=== PATIENT | male | born 1940 | race Caucasian/White ===

== ENCOUNTER → 2016-09-10 | Outpatient (CLI) | payer OTHER ==
[~2016-09-10] MED LIST: ACET-749 PO; ASPI81TA28 PO; CHOL2000 PO; CIPR-255 PO; CITA10TA8 PO; CLC100 PO; DOXY100T PO; DTR5 PO; HYDR25TA4 PO; LPR50X PO; MULT-506 PO; NITR-5 PO; NXM/40 PO; SILD1TAB11 PO; TEST5GEL TOP; TPRSR/50 PO; VYT1040 PO
[2016-09-10 14:59] LABS: URINE APPEARANCE TURBID (CLEAR); URINE BILIRUBIN NEG (NEG); URINE COLOR DK YELLOW; URINE EPITHELIAL CELL AUTO >30 /lpf (0-5); URINE NITRITE NEG (NEG); URINE PH 5.5 (4.5-7.5); URINE SPECIFIC GRAVITY 1.024 (1.000-1.030); UROBILINOGEN NEG (NEG)
[2016-09-10 15:08] LABS: MANUAL MICROSCOPIC REQUIRED? NO; REVIEW REQ? YES
== END | disposition home or self-care (01) ==
LOC: C.LABPBG 11:41
PROVIDERS: ATTEND Urology
DX: C61 Malignant neoplasm of prostate (principal); R31.9 Hematuria, unspecified

== ENCOUNTER → 2016-09-19 | Outpatient (CLI) | payer OTHER | END | disposition home or self-care (01) | LOC: C.LABSPEC 08:30 | PROVIDERS: ATTEND Urology | DX: N39.0 Urinary tract infection, site not specified (principal) ==

== ENCOUNTER → 2016-10-01 | Outpatient (CLI) | payer OTHER | END | disposition home or self-care (01) | LOC: C.LABPBG 15:40 | PROVIDERS: ATTEND Urology | DX: C61 Malignant neoplasm of prostate (principal) ==

== ENCOUNTER → 2016-10-09 | Outpatient (CLI) | payer OTHER | END | disposition home or self-care (01) | LOC: C.LABSPEC 17:37 | PROVIDERS: ATTEND Nurse Practitioner Adult Health | DX: N39.0 Urinary tract infection, site not specified (principal) ==

== ENCOUNTER → 2016-10-21 | Outpatient (CLI) | payer OTHER ==
[~2016-10-21] MED LIST changes: +OPTIRAY 320 IV PRN
--- NOTE | 2016-10-21 11:06 | DIAGNOSTIC IMAGING REPORT ---
CT UROGRAM CLINICAL HISTORY: Hematuria. Urinary frequency. History of prostate cancer. COMPARISON STUDY: No priors. TECHNIQUE: Before and following the IV administration of 94 cc of Optiray 320, CT urogram of the abdomen and pelvis is performed from the lung bases to the proximal femora. Images are reviewed in the axial, sagittal, and coronal planes. IV contrast was administered without complication. CT DOSE: 1527.00 mGy.cm FINDINGS: Lung bases: Midline sternotomy wires are noted. The heart is enlarged and without pericardial effusion. The coronary arteries are densely calcified. Emphysema is suspected. A calcified granuloma is noted at the left lung base. No airspace consolidation or pleural effusion is identified. There is a moderate hiatal hernia. Liver: The contrast-enhanced liver is enlarged, measuring 19.3 cm in length. The liver demonstrates diffusely diminished attenuation consistent with hepatic steatosis. There is no intrahepatic biliary ductal dilatation. The hepatic veins and portal veins are patent. Gallbladder: Contracted. Spleen: The spleen is mildly enlarged, measuring 14.0 cm in length. Pancreas: Unremarkable. Adrenal glands: Unremarkable. Kidneys and ureters: The contrast enhanced kidneys demonstrate cortical atrophy and are without hydronephrosis. There are 2 punctate nonobstructing renal calculi in the left kidney seen on the unenhanced images. No right renal calculi are identified. The kidneys enhance and excrete symmetrically. There is no enhancing renal cortical mass lesion identified. There is no evidence of urothelial lesion within the renal pelvis bilaterally or along the course of either ureter. The right proximal ureter and the distal left ureter are not well opacified by excreted contrast. Abdominal vasculature: There is advanced atherosclerotic calcification and ectasia of the abdominal aorta. 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 Bowel: There is no bowel obstruction. There is mild to moderate sigmoid diverticulosis without CT evidence of acute diverticulitis. 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 The appendix is well-visualized and normal. Peritoneum: There is no intraperitoneal free air or abdominal ascites. A small fat-containing umbilical hernia is noted. Lymphadenopathy: None. Pelvic viscera: The prostate gland is surgically absent. The bladder wall appears slightly thickened and trabeculated suggesting the sequelae of chronic outlet obstruction. Numerous phleboliths are observed in the pelvis. Skeletal structures: The skeletal structures are heterogeneously osteopenic. No lytic or blastic bony lesions are seen. Mild to moderate lumbosacral spondylosis is observed. There is near complete fusion of the sacroiliac joints. IMPRESSION: 1. There are punctate nonobstructing left renal calculi. 2. There is no enhancing renal cortical mass, and no evidence of urothelial lesion within the renal pelvis bilaterally or involving the ureters. 3. The prostate gland is surgically absent. 4. The bladder wall appears slightly thickened and trabeculated suggesting the sequelae of chronic outlet obstruction. The bladder is otherwise normal as visualized. If further assessment of the bladder is desired then cystoscopy would be appropriate. 5. Hepatomegaly and hepatic steatosis. 6. Splenomegaly. 7. Cardiomegaly. 8. Moderate hiatal hernia. 9. 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 10. Mild to moderate sigmoid diverticulosis without CT evidence of acute diverticulitis. 11. Additional changes as above. Electronically signed by: Alton Joseph M.D. 10/21/2016 11:05 AM Dictated Date/Time: 10/21/2016 10:53 AM
== END | disposition home or self-care (01) ==
LOC: C.CTS 09:54
PROVIDERS: ATTEND Urology
DX: C61 Malignant neoplasm of prostate (principal); R31.9 Hematuria, unspecified; R30.0 Dysuria; R39.15 Urgency of urination; K44.9 Diaphragmatic hernia without obstruction or gangrene; Z01.810 Encounter for preprocedural cardiovascular examination; Z01.812 Encounter for preprocedural laboratory examination; I49.1 Atrial premature depolarization; R94.31 Abnormal electrocardiogram [ECG] [EKG]; I25.2 Old myocardial infarction

== ENCOUNTER → 2016-10-21 | Outpatient (CLI) | payer OTHER ==
[2015-11-21 06:48] VITALS: BMI 28.0
[~2016-10-21] MED LIST changes: +CEFTRIAXONE SOD INJ 1 GM in DEXTROSE 5% ADD-VANTAGE 50ML 50 ML IV SCH; +DEXAMETHASONE SOD INJ 4 MG/ML VIAL ONE; +FENTANYL CITRATE INJ 50 MCG/1 ML 2 ML VIAL ONE; +LACTATED RINGER'S 1000ML 1,000 ML IV SCH; +LIDOCAINE HCL 2% 2 ML VIAL (20MG/ML) ONE; +MIDAZOLAM HCL 1 MG/ML 2ML VIAL ONE; +ONDANSETRON INJ 2 MG/ML 2 ML VIAL ONE; -OPTIRAY 320 IV PRN; +PROPOFOL IV EMULSION 10 MG/ML 20 ML VIAL IV ONE; +VANCOMYCIN 1GM/270ML NSS IV SCH
[2016-10-21 11:19] VITALS: BMI 28.0
--- NOTE | 2016-10-21 12:01 | PAT Medication Instructions ---
Service Date Oct 21, 2016. Current Home Medication List Aspirin (Aspirin Ec), 81 MG PO QAM Cholecalciferol (Vitamin D3), 4,000 UNITS PO DAILY Citalopram Hydrobromide (Celexa), 10 MG PO QAM Doxycycline Hyclate (Doxycycline Hyclate), 50 MG PO Q2D Esomeprazole Magnesium (Nexium), 40 MG PO QPM Ezetimibe/Simvastatin (Vytorin 10-40 mg), 1 TAB PO QPM Hydrochlorothiazide (Hctz), 25 MG PO QAM Metoprolol Tartrate (Metoprolol Tartrate), 50 MG PO QAM Multivitamin (Multivitamin), 1 TAB PO QAM Medication Instructions For Your Scheduled Surgery - Hold the following medications the morning of surgery: Multivitamin (Multivitamin), 1 TAB PO QAM Hydrochlorothiazide (Hctz), 25 MG PO QAM Cholecalciferol (Vitamin D3), 4,000 UNITS PO DAILY - Take the following medications the morning of surgery with a sip of water: Metoprolol Tartrate (Metoprolol Tartrate), 50 MG PO QAM Doxycycline Hyclate (Doxycycline Hyclate), 50 MG PO Q2D Citalopram Hydrobromide (Celexa), 10 MG PO QAM Aspirin (Aspirin Ec), 81 MG PO QAM (okay to continue per surgeon instructions) - Take the following medications as scheduled the night before surgery: Ezetimibe/Simvastatin (Vytorin 10-40 mg), 1 TAB PO QPM Esomeprazole Magnesium (Nexium), 40 MG PO QPM If you have any questions please call us at [phone] (Nydia Long PA-C) or [phone] or [phone]
[2016-10-21 12:44] LABS: BASO % 0.4 %; BASO ABS # 0.02 K/uL (0-0.2); COMPLETE YES; EOS % 1.6 %; IG% 1.4 %; LYMPH % 17.4 %; LYMPH ABS # 0.86 K/uL (1.2-3.4); MEAN CELL VOLUME 94.3 fL (80-100); MEAN CORPUSCULAR HEMOGLOBIN 32.3 pg (25-34); MEAN CORPUSCULAR HGB CONC 34.2 g/dl (32-36); MEAN PLATELET VOLUME 10.5 fL (7.4-10.4); MONO % 9.5 %; NEUT % 69.7 %; PLATELET COUNT 139 K/uL (130-400); RED BLOOD COUNT 4.03 M/uL (4.7-6.1); WHITE BLOOD COUNT 4.95 K/uL (4.8-10.8)
[2016-10-21 12:58] LABS: URINE APPEARANCE CLEAR (CLEAR); URINE BILIRUBIN NEG (NEG); URINE COLOR YELLOW; URINE NITRITE NEG (NEG); URINE PH 5.5 (4.5-7.5); URINE SPECIFIC GRAVITY > 1.045 (1.000-1.030); UROBILINOGEN NEG (NEG)
[2016-10-21 13:04] LABS: CREATININE 0.97 mg/dl (0.60-1.40)
[2016-10-21 13:05] LABS: BUN/CREATININE RATIO 25.8 (10-20); CALCIUM 8.8 mg/dl (8.5-10.1); POTASSIUM 3.5 mmol/L (3.5-5.1)
[2016-10-21 13:12] LABS: MANUAL MICROSCOPIC REQUIRED? NO; REVIEW REQ? NO
== END | disposition home or self-care (01) ==
LOC: C.LAB 08:00 → EDSTATUS 10-29 13:20
PROVIDERS: ATTEND Urology
DX: Z01.810 Encounter for preprocedural cardiovascular examination (principal); Z01.812 Encounter for preprocedural laboratory examination; I49.1 Atrial premature depolarization; R94.31 Abnormal electrocardiogram [ECG] [EKG]; I25.2 Old myocardial infarction

== ENCOUNTER 2016-10-26 19:17 | Inpatient (IN) | payer OTHER ==
[2016-10-21 11:19] VITALS: BMI 28.0
[~2016-10-26] VITALS: Ht 185.4 cm; Wt 97.6 kg
[~2016-10-26 19:17] MED LIST changes: -ACET-749 PO; -CEFTRIAXONE SOD INJ 1 GM in DEXTROSE 5% ADD-VANTAGE 50ML 50 ML IV SCH; -CIPR-255 PO; -CLC100 PO; -DEXAMETHASONE SOD INJ 4 MG/ML VIAL ONE; -DTR5 PO; -FENTANYL CITRATE INJ 50 MCG/1 ML 2 ML VIAL ONE; -LACTATED RINGER'S 1000ML 1,000 ML IV SCH; -LIDOCAINE HCL 2% 2 ML VIAL (20MG/ML) ONE; -MIDAZOLAM HCL 1 MG/ML 2ML VIAL ONE; -NITR-5 PO; -ONDANSETRON INJ 2 MG/ML 2 ML VIAL ONE; -PROPOFOL IV EMULSION 10 MG/ML 20 ML VIAL IV ONE; -SILD1TAB11 PO; -TEST5GEL TOP; -TPRSR/50 PO; -VANCOMYCIN 1GM/270ML NSS IV SCH
[2016-10-26] MEDS ORDERED: NITR-5 PO (19:39)
[2016-10-26 20:09] LABS: HEMATOCRIT 38.3 % (42-52); MEAN CELL VOLUME 91.8 fL (80-100); MEAN CORPUSCULAR HEMOGLOBIN 32.1 pg (25-34); RED BLOOD COUNT 4.17 M/uL (4.7-6.1)
[2016-10-26 20:20] LABS: ISTAT CREATININE 0.9 mg/dl (0.6-1.3); ISTAT HEMOGLOBIN 13.3 g/dl (14.0-18.0); ISTAT IONIZED CALCIUM 1.1 mmol/l (1.12-1.32)
[2016-10-26 20:26] LABS: URINE APPEARANCE CLEAR (CLEAR); URINE BILIRUBIN NEG (NEG); URINE COLOR YELLOW; URINE NITRITE NEG (NEG); URINE SPECIFIC GRAVITY 1.013 (1.000-1.030); UROBILINOGEN NEG (NEG); ZZUR CULT IF INDIC CLEAN CATCH YES
[2016-10-26 20:27] LABS: PROTHROMBIN TIME (PATIENT) 11.1 SECONDS (9.0-12.0)
[2016-10-26 20:27] LABS: MANUAL MICROSCOPIC REQUIRED? NO; REVIEW REQ? YES
[2016-10-26 20:36] LABS: ALT/SGPT 33 U/L (12-78); BLOOD UREA NITROGEN 17 mg/dl (7-18); BUN/CREATININE RATIO 16.8 (10-20); CARBON DIOXIDE 24 mmol/L (21-32); CHLORIDE 99 mmol/L (98-107); GLUCOSE 120 mg/dl (70-99); MAGNESIUM 1.6 mg/dl (1.8-2.4); MEAN PLATELET VOLUME 10.7 fL (7.4-10.4); PLATELET COUNT 107 K/uL (130-400); SODIUM 137 mmol/L (136-145)
[2016-10-26 20:37] LABS: BASO % 0.2 %; BASO ABS # 0.01 K/uL (0-0.2); COMPLETE YES; EOS % 0.7 %; IG% 1.1 %; MONO % 3.9 %; NEUT % 87.1 %
[2016-10-26 20:41] LABS: ALKALINE PHOSPHATASE 69 U/L (45-117); AST/SGOT 23 U/L (15-37); CKMB/CK RATIO 2.6 (0-3.0)
[2016-10-26] MEDS ORDERED: POTASSIUM CHLORIDE 10 MEQ TABCR PO STA (20:50)
--- NOTE | 2016-10-26 20:50 | DIAGNOSTIC IMAGING REPORT ---
SINGLE VIEW CHEST CLINICAL HISTORY: Fever. FINDINGS: An AP, portable, upright chest radiograph is compared to study dated 11/01/2015. The examination is degraded by portable technique and patient rotation. The patient is status post midline sternotomy. The heart is enlarged and there is atherosclerotic calcification of the thoracic aorta. The pulmonary vasculature is noncongested. Emphysema and chronic interstitial thickening are similar to previous. No airspace consolidation or pleural effusion is identified. No pneumothorax is seen. The skeletal structures are osteopenic. Healed bilateral rib fractures are noted. IMPRESSION: Cardiomegaly and emphysema with no acute cardiopulmonary abnormality. Electronically signed by: Alton Joseph M.D. 10/26/2016 8:49 PM Dictated Date/Time: 10/26/2016 8:47 PM
[2016-10-26] MEDS ORDERED: SODIUM CHLORIDE 0.9% 1000ML 1,000 ML IV STA (21:34)
[2016-10-26] MEDS ORDERED: CEFTRIAXONE SOD INJ 1 GM ADDVIAL IV STA (21:38)
[2016-10-26] MEDS ORDERED: ACETAMINOPHEN 500 MG TAB PO STA (21:42)
[2016-10-26] MEDS ORDERED: POLYETHYLENE (MIRALAX) 17 GM PACK PO PRN (22:00)
[2016-10-26] MEDS ORDERED: ZOLPIDEM TARTRATE 5 MG TAB PO PRN (22:00)
[2016-10-26] MEDS ORDERED: ENOXAPARIN 40 MG/0.4 ML SYR SQ SCH (22:00)
[2016-10-26] MEDS ORDERED: ONDANSETRON INJ 2 MG/ML 2 ML VIAL IV PRN (22:00)
[2016-10-26] MEDS ORDERED: ACETAMINOPHEN 325 MG TAB PO PRN (22:00)
[2016-10-26] MEDS ORDERED: ALUMINUM/MAGNESIUM/SIMETH (MAALOX MAX) 30 ML UDC PO PRN (22:00)
[2016-10-26] MEDS ORDERED: MAGNESIUM HYDROXIDE SUSP 30 ML UDC PO PRN (22:00)
--- NOTE | 2016-10-26 22:17 | EMERGENCY ROOM VISIT NOTE ---
History Report prepared by Vesna: Nurys Rojas Under the Supervision of: Dr. Driss Ya D.O. First contact with patient: 19:25 Chief Complaint: PENIS PAIN Stated Complaint: PAIN IN THE PENIS W/ LEAKAGE Nursing Triage Summary: pt reports increased pain with urinary frequency, burining and swelling in penis, pt is sched for cyscto tues. PCP sent in for eval and tx pt reports fever earlier today History of Present Illness The patient is a 76 year old male who presents to the Emergency Room with complaints of constant burning with urination beginning 2 months ago. The patient's states that the patient has a history of a prostatectomy last year and has been having frequent UTI's over the last 2 months. She reports that he has been on multiple courses of antibiotics and is now on Macrobid.. The patient complains of a fever of 101.8, urinary frequency about every 20 minutes, urinary urgency, and urinary incontinence. The patient denies any abdominal pain, cough, back pain, testicular pain, pain with bowel movements, vomiting, nausea, diarrhea, blood in urine, chest pain, and shortness of breath. The notes that the patient had Coags done and on the 10/21 he was Coag negative for staff and on 09/10 he grew out enterococcus which was barnhart sensitive. The CT that the patient had recently was normal. Source of History: patient Onset: 2 months ago Position: other (penis) Quality: burning Timing: constant Modifying Factors (Worsening): urination Associated Symptoms: + fevers, + urinary symptoms, No SOB, No abdominal pain , No back pain, No chest pain, No cough, No diarrhea, No nausea, No vomiting Note: The patient denies any testicular pain, pain with bowel movements, blood in urine. Review of Systems See HPI for pertinent positives & negatives. A total of 10 systems reviewed and were otherwise negative. Past Medical & Surgical Medical Problems: (1) Dysuria (2) Fever (3) Prostate cancer Family History No pertinent family history stated. Social History Smoking Status: Former Smoker Marital Status: Housing Status: lives with significant other Occupation Status: retired Current/Historical Medications Scheduled Aspirin (Aspirin Ec), 81 MG PO QAM Cholecalciferol (Vitamin D3), 4,000 UNITS PO DAILY Citalopram Hydrobromide (Celexa), 10 MG PO QAM Doxycycline Hyclate (Doxycycline Hyclate), 50 MG PO Q2D Esomeprazole Magnesium (Nexium), 40 MG PO QPM Ezetimibe/Simvastatin (Vytorin 10-40 mg), 1 TAB PO QPM Hydrochlorothiazide (Hctz), 25 MG PO QAM Metoprolol Tartrate (Metoprolol Tartrate), 50 MG PO QAM Multivitamin (Multivitamin), 1 TAB PO QAM Nitrofurantoin Monohyd Macrocr (Macrobid), 100 MG PO Q12 Allergies Coded Allergies: Metoclopramide (Verified Allergy, Unknown, Depression, 10/26/16) Sulfa Antibiotics (Verified Allergy, Unknown, rash, 10/26/16) Lisinopril (Verified Adverse Reaction, Mild, cough, 10/26/16) Physical Exam Vital Signs Date Time Temp Pulse Resp B/P Pulse Ox O2 Delivery O2 Flow Rate FiO2 10/26/16 21:37 38.8 96 18 148/83 96 Room Air 10/26/16 21:06 102 18 123/72 97 Room Air 10/26/16 19:21 37.3 99 18 148/77 96 Room Air Physical Exam GENERAL: sitting up on the edge of the bed, disheveled, no distress, non-toxic EYE EXAM: normal conjunctiva OROPHARYNX: no exudate, no erythema, lips, buccal mucosa, and tongue normal and mucous membranes are moist NECK: supple, no nuchal rigidity, no adenopathy, non-tender LUNGS: Clear to auscultation. Normal chest wall mechanics HEART: no murmurs, S1 normal and S2 normal ABDOMEN: abdomen soft, non-tender, normo-active bowel sounds, no masses, no rebound or guarding. BACK: Back is symmetrical on inspection and there is no deformity, no midline tenderness, no CVA tenderness. SKIN: no rashes and no bruising UPPER EXTREMITIES: upper extremities are grossly normal. LOWER EXTREMITIES: No pitting edema. NEURO EXAM: Normal sensorium, cranial nerves II-XII grossly intact, normal speech, no gross weakness of arms, no gross weakness of legs. : Normal external genitalia, testicles nontender, no masses. Medical Decision & Procedures ER Provider Diagnostic Interpretation: Xray results per the radiologist and my interpretation. SINGLE VIEW CHEST FINDINGS: An AP, portable, upright chest radiograph is compared to study dated 11/01/2015. The examination is degraded by portable technique and patient rotation. The patient is status post midline sternotomy. The heart is enlarged and there is atherosclerotic calcification of the thoracic aorta. The pulmonary vasculature is noncongested. Emphysema and chronic interstitial thickening are similar to previous. No airspace consolidation or pleural effusion is identified. No pneumothorax is seen. The skeletal structures are osteopenic. Healed bilateral rib fractures are noted. IMPRESSION: Cardiomegaly and emphysema with no acute cardiopulmonary abnormality. Electronically signed by: Alton Joseph M.D. 10/26/2016 8:49 PM Dictated Date/Time: 10/26/2016 8:47 PM Laboratory Results 10/26/16 19:55 Red Blood Count 4.17, Mean Corpuscular Volume 91.8, Mean Corpuscular Hemoglobin 32.1, Mean Corpuscular Hemoglobin Concent 35.0, Mean Platelet Volume 10.7, Neutrophils (%) (Auto) 87.1, Lymphocytes (%) (Auto) 7.0, Monocytes (%) (Auto) 3.9, Eosinophils (%) (Auto) 0.7, Basophils (%) (Auto) 0.2, Neutrophils # (Auto) 4.98, Lymphocytes # (Auto) 0.40, Monocytes # (Auto) 0.22, Eosinophils # (Auto) 0.04, Basophils # (Auto) 0.01 10/26/16 19:55 Test 10/26/16 19:55 10/26/16 20:00 10/26/16 20:04 10/26/16 20:05 White Blood Count 5.60 K/uL (4.8-10.8) Red Blood Count 4.17 M/uL (4.7-6.1) Hemoglobin 13.4 g/dL (14.0-18.0) Hematocrit 38.3 % (42-52) Mean Corpuscular Volume 91.8 fL (80-100) Mean Corpuscular Hemoglobin 32.1 pg (25-34) Mean Corpuscular Hemoglobin Concent 35.0 g/dl (32-36) Platelet Count 107 K/uL (130-400) Mean Platelet Volume 10.7 fL (7.4-10.4) Neutrophils (%) (Auto) 87.1 % Lymphocytes (%) (Auto) 7.0 % Monocytes (%) (Auto) 3.9 % Eosinophils (%) (Auto) 0.7 % Basophils (%) (Auto) 0.2 % Neutrophils # (Auto) 4.98 K/uL (1.4-6.5) Lymphocytes # (Auto) 0.40 K/uL (1.2-3.4) Monocytes # (Auto) 0.22 K/uL (0.11-0.59) Eosinophils # (Auto) 0.04 K/uL (0-0.5) Basophils # (Auto) 0.01 K/uL (0-0.2) RDW Standard Deviation 44.0 fL (36.4-46.3) RDW Coefficient of Variation 13.4 % (11.5-14.5) Immature Granulocyte % (Auto) 1.1 % Immature Granulocyte # (Auto) 0.06 K/uL (0.00-0.02) Prothrombin Time 11.1 SECONDS (9.0-12.0) Prothromb Time International Ratio 1.0 (0.9-1.1) Est Creatinine Clear Calc Drug Dose 79.7 ml/min Estimated GFR () 85.6 Estimated GFR (Non- 73.8 BUN/Creatinine Ratio 16.8 (10-20) Calcium Level 9.0 mg/dl (8.5-10.1) Magnesium Level 1.6 mg/dl (1.8-2.4) Total Bilirubin 0.9 mg/dl (0.2-1) Direct Bilirubin 0.2 mg/dl (0-0.2) Aspartate Amino Transf (AST/SGOT) 23 U/L (15-37) Alanine Aminotransferase (ALT/SGPT) 33 U/L (12-78) Alkaline Phosphatase 69 U/L (45-117) Total Creatine Kinase 85 U/L (39-308) Creatine Kinase MB 2.2 ng/ml (0.5-3.6) Creatine Kinase MB Ratio 2.6 (0-3.0) Troponin I < 0.015 ng/ml (0-0.045) Total Protein 7.4 gm/dl (6.4-8.2) Albumin 3.5 gm/dl (3.4-5.0) Bedside Hemoglobin 13.3 g/dl (14.0-18.0) Bedside Hematocrit 39 % (42-52) Bedside Sodium 136 mEq/L (135-144) Bedside Potassium 3.1 mEq/L (3.3-5.0) Bedside Chloride 97 mEq/L (101-112) Bedside Total CO2 24 mEq/l (24-31) Anion Gap 20.0 mmol/L (16-25) Bedside Blood Urea Nitrogen 17 mg/dl (7-18) Bedside Creatinine 0.9 mg/dl (0.6-1.3) Bedside Glucose (other) 127 mg/dl (70-99) Bedside Ionized Calcium (Missy) 1.10 mmol/l (1.12-1.32) Bedside Lactic Acid Venous 1.78 mmol/L (0.90-1.70) Urine Color YELLOW Urine Appearance CLEAR (CLEAR) Urine pH 5.0 (4.5-7.5) Urine Specific [place] 1.013 (1.000-1.030) Urine Protein NEG (NEG) Urine Glucose (UA) NEG (NEG) Urine Ketones NEG (NEG) Urine Occult Blood NEG (NEG) Urine Nitrite NEG (NEG) Urine Bilirubin NEG (NEG) Urine Urobilinogen NEG (NEG) Urine Leukocyte Esterase TRACE (NEG) Urine WBC (Auto) 10-30 /hpf (0-5) Urine RBC (Auto) 0-4 /hpf (0-4) Urine Hyaline Casts (Auto) 0 /lpf (0-5) Urine Epithelial Cells (Auto) 5-10 /lpf (0-5) Urine Bacteria (Auto) NEG (NEG) Test 10/26/16 22:00 Laboratory results per my review. Medications Administered Medications (Trade) Dose Ordered Sig/Mayank Route Start Time Stop Time Status Last Admin Dose Admin Potassium Chloride 40 meq 40 meq NOW STAT PO 10/26/16 20:50 10/26/16 20:52 DC 10/26/16 21:04 40 MEQ Sodium Chloride (Nss 1000ml) 1,000 ml @ 999 mls/hr Q1H1M STAT IV 10/26/16 21:34 10/26/16 22:34 10/26/16 21:47 999 MLS/HR Ceftriaxone Sodium (Rocephin Inj) 1 gm NOW STAT IV 10/26/16 21:38 10/26/16 21:39 DC 10/26/16 21:47 1 GM Acetaminophen (Tylenol Tab) 1,000 mg NOW STAT PO 10/26/16 21:42 10/26/16 21:44 DC 10/26/16 21:49 1,000 MG ECG Rate (beats per minute): 101 Rhythm: sinus tachycardia Findings: PVC, Q waves (Inferior), left axis deviation Comparison ECG Date: 10/21/16 Change: no significant change ED Course ED COURSE: Vital signs were reviewed and showed tachycardia The patients medical record was reviewed The above diagnostic studies were performed and reviewed. ED treatments and interventions as stated above. 1924: The patient was evaluated in room A10. A complete history and physical examination was performed. 1941: Post-void residual 62mls. 2049: Potassium Chloride 40meq PO. 2125: I reevaluated the patient and updated him. 2133: Sodium Chloride 1000 ml @ 999 mls/hr IV. 2137: Rocephin Inj 1gm IV. 2138: I spoke to Dr. Thomas. He agrees with antibiotics and admission. 2141: Tylenol Tab 1000mg PO. 2199: I reviewed the patient's case with Dr. Irvin. He will evaluate the patient for further management. 2206: Upon reevaluation, the patient is hemodynamically stable.I discussed my findings with the patient and he understands and agrees with the treatment plan. Based on the patients age, coexisting illnesses, exam and lab findings the decision to treat as an inpatient was made. The patient remained stable while under my care. The patient will be evaluated for further management. Medical Decision Differential diagnoses includes but is not limited to gastritis, peptic ulcer disease, GERD, gallbladder disease, pancreatitis, small bowel obstruction, acute coronary syndrome, pericarditis, ischemic bowel, irritable bowel disease, irritable bowel syndrome, appendicitis, diverticulitis, malignancy, hernia, urinary tract infection, torsion, [/ectopic (if female)], perforation, trauma, infectious. Patient is a 76-year-old male referred in by urology for dysuria, urgency and frequency which is been present for the past 2 months and worsening. He is scheduled for cystoscopy on Friday. Tonight the notes that he has been having fevers in the 101. Today in the ER he had a temperature 38.8 along with a heart rate in the low 100s. Lactic acid is slightly elevated at 1.78. Patient felt significantly better while in the ER. He was given a bolus normal saline, Tylenol I did give him a dose of Rocephin. I discussed case with urology and they were in agreement with admission. Post void residual was less than 70. He cannot have a catheter placed as he has a stricture urology would need to be notified for this. Labs show no significant leukocytosis or anemia. BMP showed hypokalemia and his potassium was repleted. EKG showed tachycardia but was unchanged from previous with Q waves present. UA does not significantly indicate a UTI but the patient was covered with antibiotics with his fever and urinary symptoms. He has no other complaints at this time. Influenza was pending following admission. Consults Time Called: 2134 Consulting Physician: Dr. Thomas Returned Call: [address] Thomas. He agrees with antibiotics and admission. Additional Consults: Time Called: 2139 Consulted Physician: Dr. Irvin Returned Call: 2199 Additional Comments: I reviewed the patient's case with Dr. Irvin. He will evaluate the patient for further management. Impression Primary Impression: SIRS (systemic inflammatory response syndrome) Additional Impressions: Dysuria Fever Hypokalemia Scribe Attestation The scribe's documentation has been prepared under my direction and personally reviewed by me in its entirety. I confirm that the note above accurately reflects all work, treatment, procedures, and medical decision making performed by me. Departure Information Dispostion Being Evaluated By Hospitalist Referrals rTae Garza (PCP) Patient Instructions My [facility] Problem Qualifiers Additional Impressions: Fever Fever type: unspecified Qualified Codes: R50.9 - Fever, unspecified
--- NOTE | 2016-10-26 22:27 | History and Physical ---
History & Physical Date & Time of Service: Oct 26, 2016 at 22:16 Chief Complaint: Pain In The Penis W/ Leakage Primary Care Physician: Trae Garza History of Present Illness Source: patient, spouse 76 y/o M w/Hx HTN, HPL, CAD, urethral stricture, prostatectomy 11/07. Pt has had recurrent UTIs for approximately 2 months. He describes bouts of dysuria with a considerable degree of pain, urgency and frequency. He has had 2 negative cultures recently and then one culture that was (+) for coagulase negative Staph thought to be a contaminant. An itial culture was (+) for pansensitive Enterococci. He has been treated with 4 courses of antibiotics, initially Amoxicillin, then Macrobid followed by Cipro and Macrobid again. He reports no relief in his symptoms despite multiple courses of antibiotics. Today in addition to his chronic symptoms he developed a fever of 101.8 prompting him to visit the ER. Initial UA is negative however this may be due to partial treatment with outpt antibiotics. His lactic acid is marginally elevated and a fever was confirmed on arrival at the hospital. As the pt is having recurrent infections and has failed outpatient treatment, he will be admitted for IV antibiotics pending culture results. Due to recurrent infection he was scheduled for a cystoscopy next week. It is also noted that the pt takes Doxycycline 50mg PO Q2D for rosacea. 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 Smoking Status: Former Smoker Alcohol Use: socially Marital Status: Allergies Coded Allergies: Metoclopramide (Verified Allergy, Unknown, Depression, 10/26/16) Sulfa Antibiotics (Verified Allergy, Unknown, rash, 10/26/16) Lisinopril (Verified Adverse Reaction, Mild, cough, 10/26/16) Home Medications Scheduled Aspirin (Aspirin Ec), 81 MG PO QAM Cholecalciferol (Vitamin D3), 4,000 UNITS PO DAILY Citalopram Hydrobromide (Celexa), 10 MG PO QAM Doxycycline Hyclate (Doxycycline Hyclate), 50 MG PO Q2D Esomeprazole Magnesium (Nexium), 40 MG PO QPM Ezetimibe/Simvastatin (Vytorin 10-40 mg), 1 TAB PO QPM Hydrochlorothiazide (Hctz), 25 MG PO QAM Metoprolol Tartrate (Metoprolol Tartrate), 50 MG PO QAM Multivitamin (Multivitamin), 1 TAB PO QAM Nitrofurantoin Monohyd Macrocr (Macrobid), 100 MG PO Q12 Review of Systems Constitutional: + chills, + fever, No sweats Eyes: No eye pain, No worsening of vision ENT: No hearing loss, No nasal symptoms, No unusual epistaxis Respiratory: No cough, No sputum, No wheezing Cardiovascular: No PND, No chest pain, No orthopnea Abdomen: No nausea, No pain, No vomiting Musculoskeletal: No joint pain, No muscle pain Genitourinary - Male: + dysuria, + problem reported (Moderate to sever penile pain), + urinary frequency, + urinary urgency, No hematuria Neurologic: No memory loss, No paralysis, No weakness Psychiatric: No depression symptoms Endocrine: No fatigue Hematologic / Lymphatic: No abnormal bleeding/bruising Integumentary: No rash Allergic / Immunologic: No environmental allergies Physical Exam Vital Signs Date Time Temp Pulse Resp B/P Pulse Ox O2 Delivery O2 Flow Rate FiO2 10/26/16 21:37 38.8 96 18 148/83 96 Room Air 10/26/16 21:06 102 18 123/72 97 Room Air 10/26/16 19:21 37.3 99 18 148/77 96 Room Air General Appearance: WD/WN, no apparent distress Head: normocephalic, atraumatic Eyes: normal inspection, PERRL, EOMI ENT: normal ENT inspection, hearing grossly normal Neck: supple, no JVD Respiratory/Chest: chest non-tender, lungs clear, normal breath sounds, no respiratory distress, no accessory muscle use Cardiovascular: regular rate, rhythm, no edema, no gallop, no JVD, no murmur, normal peripheral pulses Abdomen/GI: normal bowel sounds, non tender, soft Back: normal inspection, no CVA tenderness Extremities/Musculoskelatal: normal inspection, no calf tenderness, normal capillary refill, no pedal edema, normal range of motion 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, no motor/sensory deficits, alert, normal mood/affect, normal reflexes, oriented x 3 Skin: normal color, warm/dry, no rash Diagnostics Laboratory Results Results Past 24 Hours Test 10/26/16 19:55 10/26/16 20:00 10/26/16 20:04 10/26/16 20:05 Range/Units White Blood Count 5.60 4.8-10.8 K/uL Red Blood Count 4.17 4.7-6.1 M/uL Hemoglobin 13.4 14.0-18.0 g/dL Hematocrit 38.3 42-52 % Mean Corpuscular Volume 91.8 80-100 fL Mean Corpuscular Hemoglobin 32.1 25-34 pg Mean Corpuscular Hemoglobin Concent 35.0 32-36 g/dl Platelet Count 107 130-400 K/uL Mean Platelet Volume 10.7 7.4-10.4 fL Neutrophils (%) (Auto) 87.1 % Lymphocytes (%) (Auto) 7.0 % Monocytes (%) (Auto) 3.9 % Eosinophils (%) (Auto) 0.7 % Basophils (%) (Auto) 0.2 % Neutrophils # (Auto) 4.98 1.4-6.5 K/uL Lymphocytes # (Auto) 0.40 1.2-3.4 K/uL Monocytes # (Auto) 0.22 0.11-0.59 K/uL Eosinophils # (Auto) 0.04 0-0.5 K/uL Basophils # (Auto) 0.01 0-0.2 K/uL RDW Standard Deviation 44.0 36.4-46.3 fL RDW Coefficient of Variation 13.4 11.5-14.5 % Immature Granulocyte % (Auto) 1.1 % Immature Granulocyte # (Auto) 0.06 0.00-0.02 K/uL Prothrombin Time 11.1 9.0-12.0 SECONDS Prothromb Time International Ratio 1.0 0.9-1.1 Sodium Level 137 136-145 mmol/L Potassium Level 3.0 3.5-5.1 mmol/L Chloride Level 99 98-107 mmol/L Carbon Dioxide Level 24 21-32 mmol/L Anion Gap 14.0 20.0 16-25 mmol/L Blood Urea Nitrogen 17 7-18 mg/dl Creatinine 1.00 0.60-1.40 mg/dl Est Creatinine Clear Calc Drug Dose 79.7 ml/min Estimated GFR () 85.6 Estimated GFR (Non- 73.8 BUN/Creatinine Ratio 16.8 10-20 Random Glucose 120 70-99 mg/dl Calcium Level 9.0 8.5-10.1 mg/dl Magnesium Level 1.6 1.8-2.4 mg/dl Total Bilirubin 0.9 0.2-1 mg/dl Direct Bilirubin 0.2 0-0.2 mg/dl Aspartate Amino Transf (AST/SGOT) 23 15-37 U/L Alanine Aminotransferase (ALT/SGPT) 33 12-78 U/L Alkaline Phosphatase 69 45-117 U/L Total Creatine Kinase 85 39-308 U/L Creatine Kinase MB 2.2 0.5-3.6 ng/ml Creatine Kinase MB Ratio 2.6 0-3.0 Troponin I < 0.015 0-0.045 ng/ml Total Protein 7.4 6.4-8.2 gm/dl Albumin 3.5 3.4-5.0 gm/dl Bedside Hemoglobin 13.3 14.0-18.0 g/dl Bedside Hematocrit 39 42-52 % Bedside Sodium 136 135-144 mEq/L Bedside Potassium 3.1 3.3-5.0 mEq/L Bedside Chloride 97 101-112 mEq/L Bedside Total CO2 24 24-31 mEq/l Bedside Blood Urea Nitrogen 17 7-18 mg/dl Bedside Creatinine 0.9 0.6-1.3 mg/dl Bedside Glucose (other) 127 70-99 mg/dl Bedside Ionized Calcium (Missy) 1.10 1.12-1.32 mmol/l Bedside Lactic Acid Venous 1.78 0.90-1.70 mmol/L Urine Color YELLOW Urine Appearance CLEAR CLEAR Urine pH 5.0 4.5-7.5 Urine Specific [place] 1.013 1.000-1.030 Urine Protein NEG NEG Urine Glucose (UA) NEG NEG Urine Ketones NEG NEG Urine Occult Blood NEG NEG Urine Nitrite NEG NEG Urine Bilirubin NEG NEG Urine Urobilinogen NEG NEG Urine Leukocyte Esterase TRACE NEG Urine WBC (Auto) 10-30 0-5 /hpf Urine RBC (Auto) 0-4 0-4 /hpf Urine Hyaline Casts (Auto) 0 0-5 /lpf Urine Epithelial Cells (Auto) 5-10 0-5 /lpf Urine Bacteria (Auto) NEG NEG Test 10/26/16 22:00 Range/Units Microbiology Results 10/26/16 Blood Culture, Received Pending 10/26/16 Blood Culture, Received Pending 10/26/16 Urine Culture, Received Pending Impression Assessment and Plan 76 y/o M w/Hx HTN, HPL, CAD, urethral stricture, prostatectomy 11/07. Pt has had recurrent UTIs for approximately 2 months. He describes bouts of dysuria with a considerable degree of pain, urgency and frequency. He has had 2 negative cultures recently and then one culture that was (+) for coagulase negative Staph thought to be a contaminant. An itial culture was (+) for pansensitive Enterococci. He has been treated with 4 courses of antibiotics, initially Amoxicillin, then Macrobid followed by Cipro and Macrobid again. He reports no relief in his symptoms despite multiple courses of antibiotics. Today in addition to his chronic symptoms he developed a fever of 101.8 prompting him to visit the ER. Initial UA is negative however this may be due to partial treatment with outpt antibiotics. His lactic acid is marginally elevated and a fever was confirmed on arrival at the hospital. As the pt is having recurrent infections and has failed outpatient treatment, he will be admitted for IV antibiotics pending culture results. 1) Bacteremia - SIRS - recurrent urinary symptoms - Pending culture results he is started on Ceftriaxone ad Vanc. We will consult Urology as he was scheduled for a cystoscopy in the coming week to evaluate for a possible stricture. We will provide analgesics as needed, IVF and keep him NPO after midnight pending Urology eval. He was previously told to avoid Fluoroquinolones unless his Citalopram was held. 2) CAD - no evidence of ACS - ASA temporarily held - cont Statin and B alyssa 3) HTN - HCTZ held pending AM eval - cont Metoprolol 4) HPL - Cont Vytorin 5) Depression - Cont Citalopram 6) Hypokalemia - replaced - repeat BMP AM Full code - SCD only pending AM eval Total time for this admit including review of labs, meds, records - discussion with ER attending and pt/family Level of Care Med/Surg Resuscitation Status FULL RESUSCITATION VTE Prophylaxis VTE Risk Assessment Done? Y/N: Yes Risk Level: Moderate Given or contraindicated: SCD's
[2016-10-26] MEDS ORDERED: OXYCODONE/ACETAMINOPHEN 5-325 TAB PO PRN (22:45)
[2016-10-26] MEDS ORDERED: MoRPHine SULFATE 4 MG/ML 1 ML CARP\\VIAL IV PRN (22:45)
[2016-10-26] MEDS ORDERED: FAMOTIDINE 20 MG TAB PO ONE (22:45)
[2016-10-26 23:30] VITALS: BP 88/63; PULSE 101; TEMP 36.8; O2SAT 93
[2016-10-26] MEDS ORDERED: MAGNESIUM SULFATE 1GM / D5W 1 GM in PREMIXED IN D5W 100 ML IV STA (23:34)
[2016-10-26] MEDS ORDERED: POTASSIUM CHLORIDE 20 MEQ TABCR PO ONE (23:45)
[2016-10-26] MEDS ORDERED: VANCOMYCIN CONSULT ACTIVE PRN (23:45)
[2016-10-27] VITALS (7 sets, daily range): BP systolic 99–153; BP diastolic 61–72; PULSE 65–84; TEMP 36.5–37.1; O2SAT 93–97; Ht 185.4 cm; Wt 97.6 kg
[2016-10-27] MEDS ORDERED: VANCOMYCIN INJ 2,500 MG in SODIUM CHLORIDE 0.9% 500ML 500 ML IV ONE ×2
[2016-10-27] MEDS: D5NSS + 20MEQ KCL 1,000 ML IV SCH ×2 (00:56→09:07)
[2016-10-27] MEDS: POTASSIUM CHLR 10 MEQ / WTR 10 MEQ in PREMIXED WATER 100 ML IV SCH ×2 (00:57→01:04)
[2016-10-27 07:05] LABS: BUN/CREATININE RATIO 15.3 (10-20); CALCIUM 7.9 mg/dl (8.5-10.1); CREATININE 0.86 mg/dl (0.60-1.40); POTASSIUM 3.5 mmol/L (3.5-5.1)
[2016-10-27] MEDS: CITALOPRAM 20 MG TAB PO SCH (09:07)
[2016-10-27] MEDS: METOPROLOL TARTRATE 50 MG TAB PO SCH (09:08)
--- NOTE | 2016-10-27 10:48 | Pharmacy Progress Note ---
Pharmacy Antibiotic Consult Date of Service: Oct 27, 2016. Pharmacy Dosing Scope Pharmacy is consulted to initiate IV Vancomycin dosing therapy, order appropriate labs and adjust drug dose/frequency. Subjective The patient is a 76 year old male admitted on Oct 26, 2016 at 22:05. Objective Height (Feet): 6 Height (Inches): 1.00 Weight (Kilograms): 97.600 Lab Results (24hrs): Laboratory Tests Test 10/26/16 19:55 10/27/16 05:56 BUN/Creatinine Ratio 16.8 15.3 Blood Urea Nitrogen 17 mg/dl 13 mg/dl Creatinine 1.00 mg/dl 0.86 mg/dl White Blood Count 5.60 K/uL Red Blood Count 4.17 M/uL Hemoglobin 13.4 g/dL Hematocrit 38.3 % Mean Corpuscular Volume 91.8 fL Mean Corpuscular Hemoglobin 32.1 pg Mean Corpuscular Hemoglobin Concent 35.0 g/dl Platelet Count 107 K/uL Mean Platelet Volume 10.7 fL Neutrophils (%) (Auto) 87.1 % Lymphocytes (%) (Auto) 7.0 % Monocytes (%) (Auto) 3.9 % Eosinophils (%) (Auto) 0.7 % Basophils (%) (Auto) 0.2 % Neutrophils # (Auto) 4.98 K/uL Lymphocytes # (Auto) 0.40 K/uL Monocytes # (Auto) 0.22 K/uL Eosinophils # (Auto) 0.04 K/uL Basophils # (Auto) 0.01 K/uL Micro Results: Item Value Date Time Blood Culture Received 10/26/161954 Blood Pending Urine Culture Received 10/26/162004 Urine , Clean Catch Pending Blood Culture Received 10/26/162014 Blood Pending Recent Pertinent Medications Item Value Date Time Vancomycin HCl 550 ml @ 200 mls/hr 10/27/16 0000 2500 mg/Sodium ONE ONCE/IV 10/27/16 0056 Chloride Vancomycin HCl 530 ml @ 200 mls/hr 10/27/16 1200 1500 mg/Sodium Q12H/IV Chloride Item Value Date Time Ceftriaxone Sodium 1 gm 10/26/162137 (Rocephin Inj) NOW STAT/IV 10/26/162146 Ceftriaxone 50 ml @ 100 mls/hr 10/27/16 2200 Sodium 1 gm/ Q24H/IV Dextrose Assessment & Plan Vancomycin * 76 yo M admitted with possible urethral stricture, recurrent UTIs, possible bacteremia/SIRS * Loading dose: Vancomycin 2500mg IV x 1 dose (~25mg/kg) * Maintenance dose: Vancomycin 1500mg IV q12h (~15mg/kg) * est half-life ~8.5hr * Goal trough level: 15-20mcg/mL pending cx * Trough level ordered for: 10/28 1200 dose Pharmacy will continue to follow and will adjust dose/frequency as necessary. Thank you
--- NOTE | 2016-10-27 10:50 | Hospitalist Progress Note ---
Hospitalist Progress Note Date of Service Oct 27, 2016. Subjective Pt evaluation today including: conversation w/ patient, physical exam, chart review, lab review, review of studies, review of inpatient medication list Patient had no acute issues overnight Denies any dysuria or fevers Constitutional: No fever Eyes: No worsening of vision ENT: No hearing loss Respiratory: No cough, No shortness of breath Cardiovascular: No chest pain Objective Vital Signs Date Time Temp Pulse Resp B/P Pulse Ox O2 Delivery O2 Flow Rate FiO2 10/27/16 07:28 37.1 74 16 153/72 95 10/27/16 01:15 84 94 10/27/16 00:04 93 Room Air 10/26/16 23:30 36.8 101 20 88/63 93 Room Air 10/26/16 23:17 37.6 90 18 88/55 10/26/16 21:37 38.8 96 18 148/83 96 Room Air 10/26/16 21:06 102 18 123/72 97 Room Air 10/26/16 19:21 37.3 99 18 148/77 96 Room Air Physical Exam General Appearance: WD/WN, no apparent distress Eyes: normal inspection ENT: normal ENT inspection Neck: supple, no adenopathy Respiratory/Chest: chest non-tender, lungs clear Cardiovascular: regular rate, rhythm, no edema Abdomen: normal bowel sounds, non tender, soft Extremities: normal range of motion 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, no motor/sensory deficits, alert, oriented x 3 Skin: normal color, warm/dry, no rash Laboratory Results Last 24 Hours Test 10/26/16 19:55 10/26/16 20:00 10/26/16 20:04 10/26/16 20:05 White Blood Count 5.60 K/uL Red Blood Count 4.17 M/uL Hemoglobin 13.4 g/dL Hematocrit 38.3 % Mean Corpuscular Volume 91.8 fL Mean Corpuscular Hemoglobin 32.1 pg Mean Corpuscular Hemoglobin Concent 35.0 g/dl Platelet Count 107 K/uL Mean Platelet Volume 10.7 fL Neutrophils (%) (Auto) 87.1 % Lymphocytes (%) (Auto) 7.0 % Monocytes (%) (Auto) 3.9 % Eosinophils (%) (Auto) 0.7 % Basophils (%) (Auto) 0.2 % Neutrophils # (Auto) 4.98 K/uL Lymphocytes # (Auto) 0.40 K/uL Monocytes # (Auto) 0.22 K/uL Eosinophils # (Auto) 0.04 K/uL Basophils # (Auto) 0.01 K/uL RDW Standard Deviation 44.0 fL RDW Coefficient of Variation 13.4 % Immature Granulocyte % (Auto) 1.1 % Immature Granulocyte # (Auto) 0.06 K/uL Prothrombin Time 11.1 SECONDS Prothromb Time International Ratio 1.0 Sodium Level 137 mmol/L Potassium Level 3.0 mmol/L Chloride Level 99 mmol/L Carbon Dioxide Level 24 mmol/L Anion Gap 14.0 mmol/L 20.0 mmol/L Blood Urea Nitrogen 17 mg/dl Creatinine 1.00 mg/dl Est Creatinine Clear Calc Drug Dose 79.7 ml/min Estimated GFR () 85.6 Estimated GFR (Non- 73.8 BUN/Creatinine Ratio 16.8 Random Glucose 120 mg/dl Calcium Level 9.0 mg/dl Magnesium Level 1.6 mg/dl Total Bilirubin 0.9 mg/dl Direct Bilirubin 0.2 mg/dl Aspartate Amino Transf (AST/SGOT) 23 U/L Alanine Aminotransferase (ALT/SGPT) 33 U/L Alkaline Phosphatase 69 U/L Total Creatine Kinase 85 U/L Creatine Kinase MB 2.2 ng/ml Creatine Kinase MB Ratio 2.6 Troponin I < 0.015 ng/ml Total Protein 7.4 gm/dl Albumin 3.5 gm/dl Bedside Hemoglobin 13.3 g/dl Bedside Hematocrit 39 % Bedside Sodium 136 mEq/L Bedside Potassium 3.1 mEq/L Bedside Chloride 97 mEq/L Bedside Total CO2 24 mEq/l Bedside Blood Urea Nitrogen 17 mg/dl Bedside Creatinine 0.9 mg/dl Bedside Glucose (other) 127 mg/dl Bedside Ionized Calcium (Missy) 1.10 mmol/l Bedside Lactic Acid Venous 1.78 mmol/L Urine Color YELLOW Urine Appearance CLEAR Urine pH 5.0 Urine Specific [place] 1.013 Urine Protein NEG Urine Glucose (UA) NEG Urine Ketones NEG Urine Occult Blood NEG Urine Nitrite NEG Urine Bilirubin NEG Urine Urobilinogen NEG Urine Leukocyte Esterase TRACE Urine WBC (Auto) 10-30 /hpf Urine RBC (Auto) 0-4 /hpf Urine Hyaline Casts (Auto) 0 /lpf Urine Epithelial Cells (Auto) 5-10 /lpf Urine Bacteria (Auto) NEG Test 3/4/17 22:00 10/27/16 05:56 Influenza Type A Antigen Neg for Influ A Influenza Type B Antigen Neg for Influ B Sodium Level 138 mmol/L Potassium Level 3.5 mmol/L Chloride Level 104 mmol/L Carbon Dioxide Level 25 mmol/L Anion Gap 9.0 mmol/L Blood Urea Nitrogen 13 mg/dl Creatinine 0.86 mg/dl Est Creatinine Clear Calc Drug Dose 92.7 ml/min Estimated GFR () 99.0 Estimated GFR (Non- 85.4 BUN/Creatinine Ratio 15.3 Random Glucose 124 mg/dl Calcium Level 7.9 mg/dl Assessment and Plan 76 y/o M w/Hx HTN, HPL, CAD, urethral stricture, prostatectomy 11/07. Pt has had recurrent UTIs for approximately 2 months. He describes bouts of dysuria with a considerable degree of pain, urgency and frequency. He has had 2 negative cultures recently and then one culture that was (+) for coagulase negative Staph thought to be a contaminant. An itial culture was (+) for pansensitive Enterococci. He has been treated with 4 courses of antibiotics, initially Amoxicillin, then Macrobid followed by Cipro and Macrobid again. He reports no relief in his symptoms despite multiple courses of antibiotics. Today in addition to his chronic symptoms he developed a fever of 101.8 prompting him to visit the ER. Initial UA is negative however this may be due to partial treatment with outpt antibiotics. His lactic acid is marginally elevated and a fever was confirmed on arrival at the hospital. As the pt is having recurrent infections and has failed outpatient treatment, he will be admitted for IV antibiotics pending culture results. SIRS - suspect 2/2 to UTI given recurrent urinary symptoms - Pending urine culture results he is started on Ceftriaxone - d/c vancomycin -We will consult Urology as he was scheduled for a cystoscopy on 10.[address] Coral muñoz evaluate for a possible stricture. - continue IVF CAD - ASA on hold for cystoscopy procedure - cont Statin and B alyssa HTN - cont Metoprolol HPL - Cont Vytorin Depression - Cont Citalopram
[2016-10-27] MEDS: VANCOMYCIN INJ 1,500 MG in SODIUM CHLORIDE 0.9% 500ML 500 ML IV SCH (11:43)
--- NOTE | 2016-10-27 13:15 | GENITOURINARY CONSULTATION ---
DATE OF CONSULTATION: 10/27/2016 REASON FOR THE CONSULT: Fever and UTI and possible urethral foreign body. HISTORY OF PRESENTATION: The patient is a 76-year-old male who is approximately 1 year status post a radical retropubic prostatectomy, who was doing well until approximately a month before he began to develop severe symptoms of urgency and frequency that have not responded to antibiotics. The patient did not wish to have a cystoscopy in our office, but there is a suspicion he does have a previous history of stricture that, either has a stricture or some sort of foreign body in his urethra, possibly secondary to the surgery, clip or a calcification from a suture that is causing him to have these symptoms. He was scheduled as an outpatient last week to have surgery for this and had a CAT scan that did not show any significant abnormalities, but did show possible calcification in the urethra beyond the anastomosis. The patient is scheduled for 2 days to have a cystoscopy, possible incision of urethral stricture and possible removal of foreign body from the urethra. His called yesterday and said that he was having increasingly severe urgency, even though he had grown out bacteria that was sensitive to Macrobid and was on Macrobid and that he had had a fever of 38.7. We agreed that given the fever, it would be best to bring him to the Emergency Room. When he came, he did have a normal white blood cell count and initially the Emergency Room doctor's were planning on sending him home as his exam appeared fairly benign. However, he did spike a temperature to 38.9 in the Emergency Room and he was admitted. He has been started on vancomycin as well as ceftriaxone. The patient was sensitive to oxacillin and vancomycin so he is currently on those 2 antibiotics as well as nitrofurantoin. He grew out coag-negative staph. This morning, he feels significantly better, has less urgency, more control and has been afebrile. Again, his white blood cell count was normal and he denies any abdominal pain or other pain at this time. PAST MEDICAL HISTORY: Significant to prostate cancer, radical prostatectomy, history of coronary artery disease with a right coronary artery rupture during a cath procedure in 2012, hypertension, urethral stricture, and HBL. SOCIAL HISTORY: The patient is a former smoker, does use alcohol socially. ALLERGIES: HE HAS AN ALLERGY TO SULFA, METOCLOPRAMIDE AND LISINOPRIL. MEDICATIONS: His medicines at home include aspirin, vitamin D3, Celexa, doxycycline, Nexium, Vytorin, hydrochlorothiazide, metoprolol, and he was on Macrobid. PHYSICAL EXAMINATION: GENERAL: The patient is resting comfortably in no distress. He does appear somewhat flushed. HEENT: Unremarkable. LUNGS: Seem clear. He is in no respiratory distress, no pedal edema. ABDOMEN: Benign. He has no flank pain. EXTREMITIES: Unremarkable without calf tenderness or issues with range of motion. NEUROLOGIC: He is alert and oriented without any focal or sensory deficits. REVIEW OF SYSTEMS: Please refer to the review of systems from Dr. Garcia from yesterday, please as my review of systems. LABORATORY DATA: Again, unremarkable except for he did have 10-30 white cells in his urine. Cultures are pending including blood cultures and urine culture. ASSESSMENT: Bacteremia with probable urinary source. PLAN: Given the patient feels better, would continue these antibiotics pending culture results and then adjust them. The patient will probably end up being here until his surgery Friday, would like to keep him free of infection until then on IV antibiotics and then proceed to eliminate the source hopefully of his infection. JENNIFER
[2016-10-27] MEDS: EZETIMIBE/SIMVASTATIN 10/40 TAB PO SCH (19:57)
[2016-10-27] MEDS: PANTOprazole SOD 40 MG TAB PO SCH (19:57)
[2016-10-27] MEDS: CEFTRIAXONE SOD INJ 1 GM in DEXTROSE 5% ADD-VANTAGE 50ML 50 ML IV SCH (22:14)
[2016-10-28] MEDS: VANCOMYCIN INJ 1,500 MG in SODIUM CHLORIDE 0.9% 500ML 500 ML IV SCH ×3 (00:03→23:36)
[2016-10-28 07:18] VITALS: BP 122/72; PULSE 65; TEMP 36.8; O2SAT 97
[2016-10-28] MEDS: METOPROLOL TARTRATE 50 MG TAB PO SCH (07:59)
[2016-10-28] MEDS: CITALOPRAM 20 MG TAB PO SCH (07:59)
[2016-10-28 08:00] VITALS: O2SAT 97
--- NOTE | 2016-10-28 08:15 | Progress Note ---
Subjective Date of Service: Oct 28, 2016. Subjective Pt evaluation today including: conversation w/ patient, chart review, lab review Voiding: no voiding problems Pt reports his urgency has improved since admission. + occasional dysuria. Denies hematuria. Denies n/v. Repeat UC&S is negative. He remains on Vancomycin and ceftriaxone. Problem List Medical Problems: (1) Hypokalemia Status: Acute (2) SIRS (systemic inflammatory response syndrome) Status: Acute Review of Systems Constitutional: No chills, No fever Respiratory: No shortness of breath Cardiac: No chest pain Abdomen: No nausea, No pain, No vomiting Male : + dysuria, + see HPI Heme: No abnormal bleeding/bruising Objective Vital Signs Date Time Temp Pulse Resp B/P Pulse Ox O2 Delivery O2 Flow Rate FiO2 10/28/16 07:18 36.8 65 16 122/72 97 10/28/16 00:00 Room Air 10/27/16 23:26 36.5 77 20 99/64 97 Room Air 10/27/16 16:00 97 Room Air 10/27/16 15:32 36.8 65 14 103/61 93 Room Air Physical Exam General Appearance: no apparent distress Eyes: normal inspection ENT: hearing grossly normal Neck: no JVD Respiratory/Chest: no respiratory distress, no accessory muscle use Cardiovascular: no JVD Extremities: normal inspection Neurologic/Psychiatric: alert, normal mood/affect, oriented x 3 Skin: normal color Laboratory Results Last 24 Hours Test 10/28/16 04:44 Assessment and Plan A/P: LUTS, UTI AFVSS. LUTS have improved this morning. Recommend continuing IV Vancomycin for now. Will plan for the OR tomorrow for cysto as previously planned. Will make him NPO after midnight. Will continue to follow along with primary service at this time.
[2016-10-28 09:08] LABS: CREATININE 0.76 mg/dl (0.60-1.40)
[2016-10-28] MEDS ORDERED: VANCOMYCIN TROUGH SCH (11:30)
--- NOTE | 2016-10-28 12:50 | Pharmacy Progress Note ---
Pharmacy Antibiotic Prog Note Date of Service: Oct 28, 2016. Subjective: The patient is currently receiving vancomycin 1500 mg IV every 12 hours. The patient is currently on day # 2 of IV therapy. Objective: Height (Feet): 6 Height (Inches): 1.00 Weight (Kilograms): 97.600 Levels: Item Value Date Time Vancomycin Level Trough 13.4 mcg/ml 10/28/16 1120 Lab Results (24hrs): Laboratory Tests Test 10/28/16 08:03 Creatinine 0.76 mg/dl Assessment & Plan: This drug level is: Therapeutic Continue vancomycin 1500 mg IV every 12 hours. Goal peak level estimate: between 35 - 40 mcg/mL. Goal trough level estimate: between 10 - 15 mcg/mL (indication: UTI). Re-order level based upon kidney function and duration of therapy. Previously grew coag negative staph and enterococcus. Pharmacy will continue to follow and will adjust dose/frequency as necessary. Thank you
--- NOTE | 2016-10-28 15:06 | Progress Note ---
Subjective Date of Service: Oct 28, 2016. Subjective Pt evaluation today including: conversation w/ patient, physical exam, lab review, conversation w/ independent marketing consultant, review of inpatient medication list Pain: less dysuria today PO Intake: adequate Voiding: no voiding problems less dysuria and less frequency today but still experiencing some symptoms no hematuria, no fever chills reviewed plan with patient for cystoscopy tomorrow, he agrees Problem List Medical Problems: (1) Hypokalemia Status: Acute (2) SIRS (systemic inflammatory response syndrome) Status: Acute Review of Systems Male : + dysuria, + problem reported (urgency), + urinary frequency, No incontinence, No nocturia more than once/night, No slowing stream All Other Systems: Reviewed and Negative Medications Current Inpatient Medications Medications (Trade) Dose Ordered Sig/Mayank Route Start Time Stop Time Status Last Admin Dose Admin Ceftriaxone Sodium/Dextrose (Rocephin Inj/ Dextrose Add-[place] 50ML) 50 ml @ 100 mls/hr Q24H IV 10/27/16 22:00 11/05/16 21:59 10/27/16 22:14 100 MLS/HR Acetaminophen (Tylenol Tab) 650 mg Q4H PRN PO 10/26/16 22:00 11/25/16 21:59 Al Hydrox/Mg Hydrox/Simethicone (Maalox Max Susp) 15 ml Q4H PRN PO 10/26/16 22:00 11/25/16 21:59 Magnesium Hydroxide (Milk Of Magnesia Susp) 30 ml Q6H PRN PO 10/26/16 22:00 11/25/16 21:59 Polyethylene (Miralax Powder Packet) 17 gm DAILY PRN PO 10/26/16 22:00 11/25/16 21:59 Zolpidem Tartrate (Ambien Tab) 5 mg HSZ PRN PO 10/26/16 22:00 11/25/16 21:59 Ondansetron HCl (Zofran Inj) 4 mg Q6H PRN IV 10/26/16 22:00 11/25/16 21:59 Morphine Sulfate (MoRPHine SULFATE INJ) 3 mg Q3H PRN IV 10/26/16 22:45 11/09/16 22:44 Oxycodone/ Acetaminophen (Percocet 5-325mg Tab) 1 tab Q4H PRN PO 10/26/16 22:45 11/09/16 22:44 Citalopram Hydrobromide (celeXA TAB) 10 mg QAM PO 10/27/16 09:00 11/26/16 08:59 10/28/16 07:59 10 MG Ezetimibe/ Simvastatin (Vytorin 10/40 Tab) 1 tab QPM PO 10/27/16 21:00 11/26/16 20:59 10/27/16 19:57 1 TAB Metoprolol Tartrate (Lopressor Tab) 50 mg QAM PO 10/27/16 09:00 11/26/16 08:59 10/28/16 07:59 50 MG Pantoprazole Sodium (Protonix Tab) 40 mg QPM PO 10/27/16 21:00 11/26/16 20:59 10/27/16 19:57 40 MG Vancomycin HCl 1 ea 1 ea UD PRN N/A 10/26/16 23:45 11/25/16 23:44 Vancomycin HCl/ Sodium Chloride (Vancomycin Inj/ Nss 500ml) 530 ml @ 200 mls/hr Q12H IV 10/27/16 12:00 11/06/16 11:59 10/28/16 12:34 200 MLS/HR Objective Vital Signs Date Time Temp Pulse Resp B/P Pulse Ox O2 Delivery O2 Flow Rate FiO2 10/28/16 08:00 97 Room Air 10/28/16 07:18 36.8 65 16 122/72 97 10/28/16 00:00 Room Air 10/27/16 23:26 36.5 77 20 99/64 97 Room Air 10/27/16 16:00 97 Room Air 10/27/16 15:32 36.8 65 14 103/61 93 Room Air Physical Exam General Appearance: WD/WN, no apparent distress Eyes: normal inspection, EOMI, sclerae normal ENT: normal ENT inspection, hearing grossly normal, pharynx normal Neck: supple, no adenopathy, no JVD, trachea midline Respiratory/Chest: chest non-tender, lungs clear, normal breath sounds, no respiratory distress, no accessory muscle use Cardiovascular: regular rate, rhythm, no edema, no gallop, no JVD, no murmur Abdomen: normal bowel sounds, non tender, soft, no organomegaly Extremities: normal range of motion, non-tender, normal inspection, no pedal edema, no calf tenderness 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 Pt has had recurrent UTIs for approximately 2 months. He describes bouts of dysuria with a considerable degree of pain, urgency and frequency. He has had 2 negative cultures recently and then one culture that was (+) for coagulase negative Staph thought to be a contaminant. An initial culture was (+) for pansensitive Enterococci. He has been treated with 4 courses of antibiotics, initially Amoxicillin, then Macrobid followed by Cipro and Macrobid again. He reports no relief in his symptoms despite multiple courses of antibiotics. In addition to his chronic symptoms he developed a fever of 101.8 prompting him to visit the ER. Initial UA is negative however this may be due to partial treatment with outpt antibiotics. His lactic acid is marginally elevated and a fever was confirmed on arrival at the hospital. As the pt is having recurrent infections and has failed outpatient treatment, he will be admitted for IV antibiotics pending culture results. SIRS: afebrile, vitals stable, treating with Vancomycin and Rocephin suspect UTI but culture just growing multiple organisms Urethral stricture: due to prior prostatectomy, scheduled for cystoscopy tomorrow likely cause of the recurrent UTI symptoms follow up with urology recommendations CAD - ASA on hold for cystoscopy procedure - cont Statin and B alyssa HTN - cont Metoprolol HPL - Cont Vytorin Depression - Cont Citalopram
[2016-10-28 15:23] VITALS: BP 131/71; PULSE 70; TEMP 36.4; O2SAT 96
--- NOTE | 2016-10-28 15:35 | Anesthesiology Progress Note ---
Anesthesia Progress Note Date of Service Oct 28, 2016. Progress Notes This is a 76 y/o gentleman who presents w/ a Hx/o multiple UTI's and urethral stricture for cystoscopy.PMHx is sig. for CAD s/p [place] (2012) ,s/p CABG, Prostatectomy for cancer,multiple cardiac caths,hiatal hernia,GERD,,kyphosis,, HTN,Hyperlipidemia,COPD,and sleep apnea on CPAP. Discussed anesthesia w/pt, risks vs benefits ,all questions answered. Informed consent obtained.
[2016-10-28 16:00] VITALS: O2SAT 97
[2016-10-28] MEDS: CEFTRIAXONE SOD INJ 1 GM in DEXTROSE 5% ADD-VANTAGE 50ML 50 ML IV SCH (21:04)
[2016-10-28] MEDS: EZETIMIBE/SIMVASTATIN 10/40 TAB PO SCH (21:04)
[2016-10-28] MEDS: PANTOprazole SOD 40 MG TAB PO SCH (21:04)
[2016-10-28 23:56] VITALS: BP 112/76; PULSE 78; TEMP 36.6; O2SAT 96
[2016-10-29] VITALS (11 sets, daily range): BP systolic 91–152; BP diastolic 51–87; PULSE 61–123; TEMP 36.4–36.8; O2SAT 91–97
[2016-10-29 06:21] LABS: HEMATOCRIT 32.5 % (42-52); MEAN CELL VOLUME 92.6 fL (80-100); MEAN CORPUSCULAR HEMOGLOBIN 32.2 pg (25-34); MEAN CORPUSCULAR HGB CONC 34.8 g/dl (32-36); RED BLOOD COUNT 3.51 M/uL (4.7-6.1); WHITE BLOOD COUNT 4.09 K/uL (4.8-10.8)
[2016-10-29 06:55] LABS: BASO % 0.5 %; BASO ABS # 0.02 K/uL (0-0.2); BUN/CREATININE RATIO 14.6 (10-20); CALCIUM 7.7 mg/dl (8.5-10.1); COMPLETE YES; CREATININE 0.74 mg/dl (0.60-1.40); EOS % 5.6 %; LYMPH % 14.4 %; LYMPH ABS # 0.59 K/uL (1.2-3.4); MAGNESIUM 1.9 mg/dl (1.8-2.4); MEAN PLATELET VOLUME 10.3 fL (7.4-10.4); MONO % 12.5 %; PLATELET COUNT 78 K/uL (130-400); POTASSIUM 3.5 mmol/L (3.5-5.1)
--- NOTE | 2016-10-29 08:17 | Progress Note ---
Subjective Date of Service: Oct 29, 2016. Subjective Pt evaluation today including: conversation w/ patient, chart review, lab review Voiding: no voiding problems 76 yo male with recurrent LUTS and UTI. The pt is NPO and pending cysto for further evaluation later today. He reports some persistent urgency and dysuria, but otherwise feels well. Problem List Medical Problems: (1) Hypokalemia Status: Acute (2) SIRS (systemic inflammatory response syndrome) Status: Acute Review of Systems Constitutional: No chills, No fever Respiratory: No shortness of breath Cardiac: No chest pain Abdomen: No nausea, No pain, No vomiting Male : + dysuria, No hematuria Heme: No abnormal bleeding/bruising Objective Vital Signs Date Time Temp Pulse Resp B/P Pulse Ox O2 Delivery O2 Flow Rate FiO2 10/29/16 07:09 36.6 61 18 103/51 95 Room Air 10/29/16 06:43 36.6 78 20 112/76 96 Room Air 10/29/16 00:00 Room Air 10/28/16 23:56 36.6 78 20 112/76 96 Room Air 10/28/16 20:00 Room Air 10/28/16 16:00 97 Room Air 10/28/16 15:23 36.4 70 20 131/71 96 Room Air Physical Exam General Appearance: no apparent distress Eyes: normal inspection ENT: hearing grossly normal Neck: no JVD Respiratory/Chest: no respiratory distress, no accessory muscle use Cardiovascular: no JVD Extremities: normal inspection Neurologic/Psychiatric: alert, normal mood/affect, oriented x 3 Skin: normal color Laboratory Results Last 24 Hours Test 10/28/16 11:20 10/29/16 05:37 Vancomycin Level Trough 13.4 mcg/ml White Blood Count 4.09 K/uL Red Blood Count 3.51 M/uL Hemoglobin 11.3 g/dL Hematocrit 32.5 % Mean Corpuscular Volume 92.6 fL Mean Corpuscular Hemoglobin 32.2 pg Mean Corpuscular Hemoglobin Concent 34.8 g/dl Platelet Count 78 K/uL Mean Platelet Volume 10.3 fL Neutrophils (%) (Auto) 66.0 % Lymphocytes (%) (Auto) 14.4 % Monocytes (%) (Auto) 12.5 % Eosinophils (%) (Auto) 5.6 % Basophils (%) (Auto) 0.5 % Neutrophils # (Auto) 2.70 K/uL Lymphocytes # (Auto) 0.59 K/uL Monocytes # (Auto) 0.51 K/uL Eosinophils # (Auto) 0.23 K/uL Basophils # (Auto) 0.02 K/uL RDW Standard Deviation 45.4 fL RDW Coefficient of Variation 13.4 % Immature Granulocyte % (Auto) 1.0 % Immature Granulocyte # (Auto) 0.04 K/uL Sodium Level 141 mmol/L Potassium Level 3.5 mmol/L Chloride Level 106 mmol/L Carbon Dioxide Level 26 mmol/L Anion Gap 9.0 mmol/L Blood Urea Nitrogen 11 mg/dl Creatinine 0.74 mg/dl Est Creatinine Clear Calc Drug Dose 107.7 ml/min Estimated GFR () 105.3 Estimated GFR (Non- 90.9 BUN/Creatinine Ratio 14.6 Random Glucose 100 mg/dl Calcium Level 7.7 mg/dl Magnesium Level 1.9 mg/dl Assessment and Plan A/P: LUTS, UTI Persistent LUTS. Repeat UC&S is negative. Recommend continuing IV Vancomycin for now. Will plan for the OR today for cysto as previously planned. Risks and benefits of the procedure discussed with the pt. All questions answered. Pt agrees to the procedure at this time. Will continue to follow along with primary service. Hopeful for d/c home in the next 1-2 days pending cysto findings.
[2016-10-29] MEDS: METOPROLOL TARTRATE 50 MG TAB PO SCH (09:00)
[2016-10-29] MEDS: CITALOPRAM 20 MG TAB PO SCH (09:00)
[2016-10-29] MEDS: VANCOMYCIN INJ 1,500 MG in SODIUM CHLORIDE 0.9% 500ML 500 ML IV SCH (12:16)
--- NOTE | 2016-10-29 15:40 | [facility] Post Operative Brief Note ---
Immediate Operative Summary Operative Date Oct 29, 2016. Pre-Operative Diagnosis Persistent urgency and dysuria Post-Operative Diagnosis Persistent urgency and dysuria Procedure(s) Performed Cystoscopy Under Anesthesia, Urethral Dilation of Bladder Neck, Cystolithoplaxy , Removal of Foreign Body Surgeon Dr. Daniel Santana [employer] Spr[employer] Unit Feeder Surgeon(s) None Estimated Blood Loss 5ml Findings Stone lodged in the urethra at the bladder neck with inflammation around the bladder neck. The stone seemed to be impacted in this site, and during laser of the stone, a white, weck clip was found to be the underlying nidus for the stone. This appears to have eroded from an extravesical location. All stone material was removed from the clip and the clip and stones were extracted through the cystoscope. The bladder neck was then widely patent. An 18F catheter was inserted without difficulty. Specimens Specimen A. Bladder stone for urinalysis Drains 18F mccormack Anesthesia MAC Complication(s) None Disposition Recovery Room / PACU (stable)
--- NOTE | 2016-10-29 16:04 | Progress Note ---
Subjective Date of Service: Oct 29, 2016. Subjective Pt evaluation today including: conversation w/ patient, physical exam, lab review, conversation w/ tax consultant, review of inpatient medication list Pain: still with dysuria and urgency PO Intake: NPO for cystoscopy Voiding: voiding difficulty patient underwent cystoscopy today with urethral dilation, stone found lodged at bladder neck, broken down and removed no fevers, patient was still experiencing dysuria, urgency and frequency prior to the procedure Problem List Medical Problems: (1) Hypokalemia Status: Acute (2) SIRS (systemic inflammatory response syndrome) Status: Acute Review of Systems Male : + dysuria, + problem reported (urgency), + urinary frequency All Other Systems: Reviewed and Negative Medications Current Inpatient Medications Medications (Trade) Dose Ordered Sig/Mayank Route Start Time Stop Time Status Last Admin Dose Admin Ceftriaxone Sodium/Dextrose (Rocephin Inj/ Dextrose Add-[place] 50ML) 50 ml @ 100 mls/hr Q24H IV 10/27/16 22:00 11/05/16 21:59 10/28/16 21:04 100 MLS/HR Acetaminophen (Tylenol Tab) 650 mg Q4H PRN PO 10/26/16 22:00 11/25/16 21:59 Al Hydrox/Mg Hydrox/Simethicone (Maalox Max Susp) 15 ml Q4H PRN PO 10/26/16 22:00 11/25/16 21:59 Magnesium Hydroxide (Milk Of Magnesia Susp) 30 ml Q6H PRN PO 10/26/16 22:00 11/25/16 21:59 Polyethylene (Miralax Powder Packet) 17 gm DAILY PRN PO 10/26/16 22:00 11/25/16 21:59 Zolpidem Tartrate (Ambien Tab) 5 mg HSZ PRN PO 10/26/16 22:00 11/25/16 21:59 Ondansetron HCl (Zofran Inj) 4 mg Q6H PRN IV 10/26/16 22:00 11/25/16 21:59 Morphine Sulfate (MoRPHine SULFATE INJ) 3 mg Q3H PRN IV 10/26/16 22:45 11/09/16 22:44 Oxycodone/ Acetaminophen (Percocet 5-325mg Tab) 1 tab Q4H PRN PO 10/26/16 22:45 11/09/16 22:44 Citalopram Hydrobromide (celeXA TAB) 10 mg QAM PO 10/27/16 09:00 11/26/16 08:59 10/28/16 07:59 10 MG Ezetimibe/ Simvastatin (Vytorin 10/40 Tab) 1 tab QPM PO 10/27/16 21:00 11/26/16 20:59 10/28/16 21:04 1 TAB Metoprolol Tartrate (Lopressor Tab) 50 mg QAM PO 10/27/16 09:00 11/26/16 08:59 10/28/16 07:59 50 MG Pantoprazole Sodium (Protonix Tab) 40 mg QPM PO 10/27/16 21:00 11/26/16 20:59 10/28/16 21:04 40 MG Vancomycin HCl 1 ea 1 ea UD PRN N/A 10/26/16 23:45 11/25/16 23:44 Vancomycin HCl/ Sodium Chloride (Vancomycin Inj/ Nss 500ml) 530 ml @ 200 mls/hr Q12H IV 10/27/16 12:00 11/06/16 11:59 10/29/16 12:16 200 MLS/HR Objective Vital Signs Date Time Temp Pulse Resp B/P Pulse Ox O2 Delivery O2 Flow Rate FiO2 10/29/16 15:50 88 18 120/77 98 Nasal Cannula 3 10/29/16 15:40 36.3 86 18 117/82 98 Nasal Cannula 3 10/29/16 15:30 92 18 110/72 98 Mask 10 10/29/16 15:28 36.0 92 18 100/67 98 Mask 10 10/29/16 09:00 95 Room Air 10/29/16 07:09 36.6 61 18 103/51 95 Room Air 10/29/16 06:43 36.6 78 20 112/76 96 Room Air 10/29/16 00:00 Room Air 10/28/16 23:56 36.6 78 20 112/76 96 Room Air 10/28/16 20:00 Room Air 10/28/16 16:00 97 Room Air Physical Exam General Appearance: WD/WN, no apparent distress Eyes: normal inspection, EOMI, sclerae normal ENT: normal ENT inspection, hearing grossly normal, pharynx normal Neck: supple, no adenopathy, no JVD, trachea midline Respiratory/Chest: chest non-tender, lungs clear, normal breath sounds, no respiratory distress, no accessory muscle use Cardiovascular: regular rate, rhythm, no edema, no gallop, no JVD, no murmur Abdomen: normal bowel sounds, non tender, soft, no organomegaly Extremities: normal range of motion, non-tender, normal inspection, no pedal edema, no calf tenderness, pelvis stable 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, no motor/sensory deficits, alert, normal mood/affect, oriented x 3 Skin: normal color, warm/dry, no rash Lymphatic: no adenopathy Laboratory Results Last 24 Hours Test 10/29/16 05:37 White Blood Count 4.09 K/uL Red Blood Count 3.51 M/uL Hemoglobin 11.3 g/dL Hematocrit 32.5 % Mean Corpuscular Volume 92.6 fL Mean Corpuscular Hemoglobin 32.2 pg Mean Corpuscular Hemoglobin Concent 34.8 g/dl Platelet Count 78 K/uL Mean Platelet Volume 10.3 fL Neutrophils (%) (Auto) 66.0 % Lymphocytes (%) (Auto) 14.4 % Monocytes (%) (Auto) 12.5 % Eosinophils (%) (Auto) 5.6 % Basophils (%) (Auto) 0.5 % Neutrophils # (Auto) 2.70 K/uL Lymphocytes # (Auto) 0.59 K/uL Monocytes # (Auto) 0.51 K/uL Eosinophils # (Auto) 0.23 K/uL Basophils # (Auto) 0.02 K/uL RDW Standard Deviation 45.4 fL RDW Coefficient of Variation 13.4 % Immature Granulocyte % (Auto) 1.0 % Immature Granulocyte # (Auto) 0.04 K/uL Sodium Level 141 mmol/L Potassium Level 3.5 mmol/L Chloride Level 106 mmol/L Carbon Dioxide Level 26 mmol/L Anion Gap 9.0 mmol/L Blood Urea Nitrogen 11 mg/dl Creatinine 0.74 mg/dl Est Creatinine Clear Calc Drug Dose 107.7 ml/min Estimated GFR () 105.3 Estimated GFR (Non- 90.9 BUN/Creatinine Ratio 14.6 Random Glucose 100 mg/dl Calcium Level 7.7 mg/dl Magnesium Level 1.9 mg/dl Assessment and Plan 76 y/o M w/Hx HTN, HPL, CAD, urethral stricture, prostatectomy 03/16. Pt has had recurrent UTIs for approximately 2 months. He describes bouts of dysuria with a considerable degree of pain, urgency and frequency. He has had 2 negative cultures recently and then one culture that was (+) for coagulase negative Staph thought to be a contaminant. An initial culture was (+) for pansensitive Enterococci. He has been treated with 4 courses of antibiotics, initially Amoxicillin, then Macrobid followed by Cipro and Macrobid again. He reports no relief in his symptoms despite multiple courses of antibiotics. In addition to his chronic symptoms he developed a fever of 101.8 prompting him to visit the ER. Initial UA is negative however this may be due to partial treatment with outpt antibiotics. His lactic acid is marginally elevated and a fever was confirmed on arrival at the hospital. As the pt is having recurrent infections and has failed outpatient treatment, he will be admitted for IV antibiotics pending culture results. SIRS: afebrile, vitals stable, continue with Vancomycin and Rocephin (h/o Enterococcus and Staph) suspect UTI but culture just growing multiple organisms Urethral stricture and stone lodged at bladder neck 10/29/16: Cystoscopy, Urethral Dilation of Bladder Neck, Cystolithoplaxy, Removal of Foreign Body mccormack placed, observe over night, will d/w urology in the morning CAD - ASA on hold for cystoscopy procedure, resume tomorrow if okay with urology - cont Statin and B alyssa HTN - cont Metoprolol HPL - Cont Vytorin Depression - Cont Citalopram
--- NOTE | 2016-10-29 16:25 | Anesthesiology Progress Note ---
Anesthesia Post Op Note Date & Time Oct 29, 2016 at 16:25 Vital Signs Pain Intensity: 4 Vital Signs Past 12 Hours Date Time Temp Pulse Resp B/P Pulse Ox O2 Delivery O2 Flow Rate FiO2 10/29/16 15:50 88 18 120/77 98 Nasal Cannula 3 10/29/16 15:40 36.3 86 18 117/82 98 Nasal Cannula 3 10/29/16 15:30 92 18 110/72 98 Mask 10 10/29/16 15:28 36.0 92 18 100/67 98 Mask 10 10/29/16 09:00 95 Room Air 10/29/16 07:09 36.6 61 18 103/51 95 Room Air 10/29/16 06:43 36.6 78 20 112/76 96 Room Air Notes Mental Status: alert / awake / arousable, participated in evaluation Pt Amnestic to Procedure: Yes Nausea / Vomiting: adequately controlled Pain: adequately controlled Airway Patency, RR, SpO2: stable & adequate BP & HR: stable & adequate Hydration State: stable & adequate Anesthetic Complications: no major complications apparent
--- NOTE | 2016-10-29 17:08 | OPERATIVE REPORT ---
DATE OF OPERATION: 10/29/2016 PREOPERATIVE DIAGNOSES: Dysuria and urinary urgency. POSTOPERATIVE DIAGNOSES: Bladder calculus eroded clip from prior surgery and bladder neck contracture. PROCEDURES PERFORMED: Cystoscopy, urethral dilation, laser litholapaxy and extraction of stone and foreign body from bladder. DRAINS: 18-[place] Ann catheter. COMPLICATIONS: There were no complications. SPECIMENS: Stone for chemical analysis. ANESTHESIA: Monitored anesthesia care. ESTIMATED BLOOD LOSS: 5 mL. DESCRIPTION OF THE PROCEDURE: Elbert Sesay was identified in the preoperative holding area. Appropriate informed consents were reviewed and completed and the patient was transported to the operating suite. Upon arrival, he received appropriate sedation. Of note, he has received a dose of ceftriaxone as well as a dose of vancomycin earlier today. I began the case by attempting to pass a 22-[place] cystoscope with 30 degree lens. I was able to pass this up to the level just before the bladder just through the sphincter. The sphincter was intact and functional. Visualization at that time revealed a stone occluding the lumen of the bladder with edema and inflammation around it, which prohibited passage of the scope into the bladder. I then passed a wire through the scope and passed into the bladder alongside the stone. I attempted again to push the stone retrograde into the bladder and was unsuccessful. I used sequential dilators to gently dilate beginning at 12-[place] and was able to pass a 12-[place]icar[place] dilator into the bladder and with 14-[place]icaraguan, I was able to feel a pop consistent with the stone moving retrograde into the bladder. I then rescoped and was able to pass my scope into the bladder, although there was still some inflammation and small amount of stones still embedded in the lateral wall of the bladder neck. Inspection at that time revealed several stone fragments within the bladder, but otherwise a healthy appearing bladder mucosa without tumors or masses or other inflammation. I then reevaluated the bladder neck and found stone embedded into the left lateral wall of the bladder neck. I passed a 1000 micron laser fiber at that time and I began lasering the stone to free it from its site of impaction. I simultaneously incised all the overlying tissue slightly to free this from its site of impaction. As I successfully released the stone from its site of impaction and began to work my way through the stone, I encountered white material underneath and quickly identified this as a Weck clip, which appears to be eroded through from his prior prostatectomy. I was able to completely free the stone from the outside of a Weck clip and the Weck was entirely intact and still closed. I was able to grasp the distal end of Weck clip and pulled out through the scope atraumatically. I then irrigated the other stone fragments out of the bladder. I evaluated the bladder and the bladder neck again and saw no other large retained fragments or other abnormalities. I placed a wire into the bladder and guided an 18-[place] tip catheter over the wire without difficulty. The patient was reversed from anesthesia and taken to the PACU in stable condition. I attest to the content of the Intraoperative Record and any orders documented therein. Any exceptio ns are noted below.
[2016-10-29] MEDS: CEFTRIAXONE SOD INJ 1 GM in DEXTROSE 5% ADD-VANTAGE 50ML 50 ML IV SCH (21:35)
[2016-10-29] MEDS: EZETIMIBE/SIMVASTATIN 10/40 TAB PO SCH (21:35)
[2016-10-29] MEDS: PANTOprazole SOD 40 MG TAB PO SCH (21:35)
[2016-10-30] MEDS: VANCOMYCIN INJ 1,500 MG in SODIUM CHLORIDE 0.9% 500ML 500 ML IV SCH (00:37)
[2016-10-30 04:30] VITALS: BP 104/66; PULSE 62; TEMP 36.9; O2SAT 91
[2016-10-30 07:11] VITALS: BP 113/72; PULSE 75; TEMP 36.3; O2SAT 93
[2016-10-30 07:56] LABS: CREATININE 0.67 mg/dl (0.60-1.40)
[2016-10-30 08:00] VITALS: O2SAT 93
--- NOTE | 2016-10-30 08:11 | Progress Note ---
Subjective Date of Service: Oct 30, 2016. Subjective Pt evaluation today including: conversation w/ patient, chart review, lab review Voiding: mccormack catheter in place (patent draining light mccain colored urine) 76 yo male with irritative LUTS. S/p cysto with foreign body removal. Pt reports he feels well this morning. Denies pain. Mccormack remains in place. Problem List Medical Problems: (1) Hypokalemia Status: Acute (2) SIRS (systemic inflammatory response syndrome) Status: Acute Review of Systems Constitutional: No chills, No fever Respiratory: No shortness of breath Cardiac: No chest pain Abdomen: No nausea, No pain, No vomiting Male : + hematuria Heme: No abnormal bleeding/bruising Objective Vital Signs Date Time Temp Pulse Resp B/P Pulse Ox O2 Delivery O2 Flow Rate FiO2 10/30/16 07:11 36.3 75 16 113/72 93 10/30/16 04:30 36.9 62 16 104/66 91 Room Air 10/30/16 00:00 Room Air 10/29/16 23:34 36.8 78 18 96/56 95 Room Air 10/29/16 20:00 Room Air 10/29/16 19:43 106 98/62 10/29/16 19:00 36.4 123 18 91/61 91 Room Air 10/29/16 18:41 97 Nasal Cannula 3.0 10/29/16 18:00 36.4 101 18 94/61 93 Room Air 10/29/16 17:00 36.5 84 18 107/68 94 Nasal Cannula 2.0 10/29/16 16:30 76 18 137/87 96 Nasal Cannula 2.0 10/29/16 16:00 97 Nasal Cannula 3.0 10/29/16 16:00 36.4 87 18 152/87 94 Nasal Cannula 3.0 10/29/16 15:50 88 18 120/77 98 Nasal Cannula 3 10/29/16 15:40 36.3 86 18 117/82 98 Nasal Cannula 3 10/29/16 15:30 92 18 110/72 98 Mask 10 10/29/16 15:28 36.0 92 18 100/67 98 Mask 10 10/29/16 09:00 95 Room Air Physical Exam General Appearance: no apparent distress Eyes: normal inspection ENT: hearing grossly normal Neck: no JVD Respiratory/Chest: no respiratory distress, no accessory muscle use Cardiovascular: no JVD Extremities: normal inspection Neurologic/Psychiatric: alert, normal mood/affect, oriented x 3 Skin: normal color Laboratory Results Last 24 Hours Test 10/30/16 07:10 Creatinine 0.67 mg/dl Est Creatinine Clear Calc Drug Dose 119.0 ml/min Estimated GFR () 109.7 Estimated GFR (Non- 94.7 Assessment and Plan POD #1 s/p cysto and foreign body removal AFVSS. Pt doing well clinically. OK for d/c home with mccormack catheter when OK with primary service. Recommend d/c home on 5 days of Macrobid. Will arrange for outpatient f/u for mccormack catheter removal. Keep f/u as scheduled with Dr. Santana. Discharge planning: home
[2016-10-30] MEDS: METOPROLOL TARTRATE 50 MG TAB PO SCH (08:55)
[2016-10-30] MEDS: CITALOPRAM 20 MG TAB PO SCH (08:55)
--- NOTE | 2016-10-30 09:13 | Anesthesiology Progress Note ---
Anesthesia Post Op Note Date & Time Oct 30, 2016 at 09:12 Vital Signs Pain Intensity: 0.0 Vital Signs Past 12 Hours Date Time Temp Pulse Resp B/P Pulse Ox O2 Delivery O2 Flow Rate FiO2 10/30/16 07:11 36.3 75 16 113/72 93 10/30/16 04:30 36.9 62 16 104/66 91 Room Air 10/30/16 00:00 Room Air 10/29/16 23:34 36.8 78 18 96/56 95 Room Air Notes Mental Status: alert / awake / arousable, participated in evaluation Pt Amnestic to Procedure: Yes Nausea / Vomiting: adequately controlled Pain: adequately controlled Airway Patency, RR, SpO2: stable & adequate BP & HR: stable & adequate Hydration State: stable & adequate Anesthetic Complications: no major complications apparent
[2016-10-30] MEDS ORDERED: NITR-5 PO (09:32)
--- NOTE | 2016-10-30 09:35 | Discharge Instructions ---
Discharge Instructions Date of Service Oct 30, 2016. Admission Reason for Admission: Dysuria, Fever Discharge Discharge Diagnosis / Problem: UTI, stone in bladder, s/p cystoscopy Discharge Goals Goal(s): Improve function, Specific goals (follow up with Dr. Santana) Activity Recommendations Activity Limitations: resume your previous activity Lifting Limitations: none Exercise/Sports Limitations: as tolerated May Resume Sexual Activity: when tolerated Shower/Bathe: no limitations Driving or Machine Use: no limitations . Instructions / Follow-Up Instructions / Follow-Up Medications: - MACROBID: antibiotic to cover for UTI, take for 5 more days per urology recommendations FOLLOW UP - please follow up with Dr. Santana as previously scheduled Current Hospital Diet Patient's current hospital diet: AHA Diet (Heart Healthy) Discharge Diet Recommended Diet: AHA Diet (Heart Healthy) Procedures Procedures Performed: Cystoscopy Under Anesthesia, Urethral Dilation of Bladder Neck, Cystolithoplaxy , Removal of Foreign Body Pending Studies Studies pending at discharge: no Laboratory Results Blood cultures - no growth Urine culture - three organisms, all low counts, likely skin ryan Medical Emergencies . Who to Call and When: Medical Emergencies: If at any time you feel your situation is an emergency, please call 911 immediately. . Non-Emergent Contact Non-Emergency issues call your: Urologist Call Non-Emergent contact if: you have a fever, your pain is worsening, you have any medication questions . . "Provider Documentation" section prepared by Fermin Marcos. VTE Core Measure Inpt VTE Proph given/why not?: SCD's [place] Drug Monitoring Program Search Results: no issues identified
--- NOTE | 2016-10-30 10:19 | Discharge Summary ---
Discharge Summary Date of Service Oct 30, 2016. Discharge Summary Admission Date: Oct 26, 2016 at 22:05 Discharge Date: Oct 29, 2016 Discharge Disposition: Home Principal Diagnosis: LUTS due to stone in bladder Problems/Secondary Diagnoses: UTI Procedures: Cystoscopy, urethral dilation, stone extraction Consultations: Urology Medication Reconciliation Continued Medications: Aspirin (Aspirin Ec) 81 Mg Tab 81 MG PO QAM Cholecalciferol (Vitamin D3) 2,000 Unit Cap 4000 UNITS PO DAILY for 90 Days, CAP 3 Refills takes anytime Citalopram Hydrobromide (Celexa) 10 Mg Tab 10 MG PO QAM for 30 Days, #30 TAB 2 Refills Esomeprazole Magnesium (Nexium) 40 Mg Capcr 40 MG PO QPM, CAP Ezetimibe/Simvastatin (Vytorin 10-40 mg) 1 Tab Tab 1 TAB PO QPM Hydrochlorothiazide (Hctz) 25 Mg Tab 25 MG PO QAM for 30 Days, #30 TAB 5 Refills Metoprolol Tartrate (Metoprolol Tartrate) 50 Mg Tab 50 MG PO QAM Multivitamin (Multivitamin) Tab 1 TAB PO QAM, TAB Nitrofurantoin Monohyd Macrocr (Macrobid) 100 Mg Cap 100 MG PO Q12, #10 CAP 0 Refills (This prescription has been renewed) Discontinued Medications: Doxycycline Hyclate (Doxycycline Hyclate) 100 Mg Tab 50 MG PO Q2D for 7 Days, #14 TAB AM Discharge Exam Patient feeling well today, had mccormack d/c this morning and now waiting to urinate so he can go home. He was quite pleased that Dr. Santana found a stone in the bladder that explained all the symptoms he was experiencing. Discussed that he should take Macrobid x 5 more days and follow up with Dr. Santana. He had no questions. Review of Systems: Constitutional: No chills, No fatigue, No fever, No problem reported, No sweats, No weakness, No weight loss Eyes: No diplopia, No discharge, No eye pain, No problem reported, No redness, No worsening of vision ENT: No dental problems, No hearing loss, No nasal symptoms, No problem reported, No sore throat, No tinnitus, No trouble swallowing, No unusual epistaxis Respiratory: No cough, No dyspnea at rest, No dyspnea on exertion, No hemoptysis, No problem reported, No shortness of breath, No sputum, No wheezing Cardiovascular: No PND, No chest pain, No claudication, No edema, No orthopnea, No palpitations, No problem reported Abdomen: No GI bleeding, No constipation, No diarrhea, No nausea, No pain, No problem reported, No vomiting Musculoskeletal: No calf pain, No joint pain, No muscle pain, No problem reported, No swelling Genitourinary - Male: No dysuria, No hematuria, No penile discharge, No urinary frequency, No urinary hesitancy, No urinary incontinence, No urinary retention, No urinary urgency Neurologic: No balance problems, No memory loss, No numbness/tingling, No paralysis, No problem reported, No vertigo, No weakness Psychiatric: No anhedonism, No anxiety, No depression symptoms, No insomnia , No problem reported, No substance abuse Endocrine: No excessive thirst, No excessive urination, No fatigue, No problem reported Hematologic / Lymphatic: No abnormal bleeding/bruising, No clotting problems , No night sweats, No problem reported, No swollen lymph nodes Integumentary: No bleeding, No color change, No itch, No new/changing skin lesions, No problem reported, No rash Physical Exam: General Appearance: WD/WN, no apparent distress Eyes: normal inspection, EOMI, sclerae normal ENT: normal ENT inspection, hearing grossly normal, pharynx normal Neck: supple, no adenopathy, no JVD, trachea midline Respiratory/Chest: chest non-tender, lungs clear, normal breath sounds, no respiratory distress, no accessory muscle use Cardiovascular: regular rate, rhythm, no edema, no gallop, no JVD, no murmur , normal peripheral pulses Abdomen / GI: normal bowel sounds, non tender, soft, no organomegaly Extremities: normal inspection, no calf tenderness, normal capillary refill , no pedal edema, normal range of motion, pelvis stable 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 Pt has had recurrent UTIs for approximately 2 months. He describes bouts of dysuria with a considerable degree of pain, urgency and frequency. He has had 2 negative cultures recently and then one culture that was (+) for coagulase negative Staph thought to be a contaminant. An initial culture was (+) for pansensitive Enterococci. He has been treated with 4 courses of antibiotics, initially Amoxicillin, then Macrobid followed by Cipro and Macrobid again. He reports no relief in his symptoms despite multiple courses of antibiotics. In addition to his chronic symptoms he developed a fever of 101.8 prompting him to visit the ER. Initial UA is negative however this may be due to partial treatment with outpt antibiotics. His lactic acid is marginally elevated and a fever was confirmed on arrival at the hospital. As the pt is having recurrent infections and has failed outpatient treatment, he will be admitted for IV antibiotics pending culture results. SIRS: afebrile, vitals stable, treated with Vancomycin and Rocephin (h/o Enterococcus and Staph) while admitted suspect UTI but culture only grew small quantities of several bacterial, likely skin ryan will d/c on Macrobid x 5 days per urology recommendations Urethral stricture and stone lodged at bladder neck 10/29/16: Cystoscopy, Urethral Dilation of Bladder Neck, Cystolithoplaxy, Removal of Foreign Body mccormack placed after procedure, removed this AM, okay for d/c once he urinates certainly a stone lodged at bladder neck would explain his urgency, dysuria and increased frequency, should have resolution of LUTS follow up with Dr. Santana in one week CAD - ASA on hold for cystoscopy procedure, resume on discharge - cont Statin and B alyssa HTN - cont Metoprolol HPL - Cont Vytorin Depression - Cont Citalopram Total Time Spent: Less than 30 minutes This includes examination of the patient, discharge planning, medication reconciliation, and communication with other providers. Discharge Instructions Please refer to the electronic Patient Visit Report (Discharge Instructions) for additional information. Follow-Up Dr. Santana in one week Additional Copies To Trae Garza; Daniel Santana M.D.
[2016-10-30 10:51] VITALS: BP 113/72; PULSE 75; TEMP 36.3; O2SAT 93
[2016-10-31] MEDS ORDERED: NITR-5 PO (22:36)
[2016-10-31] MEDS ORDERED: SILD1TAB11 PO (22:37)
[2016-11-02] MEDS ORDERED: CIPR-255 PO (09:49)
--- NOTE | 2016-11-03 20:10 | EDITING REQUIRED CODING QUERY ---
SEPSIS Dear Dr. Marcos, To promote full compliance with coding requirements relating to patient care, physician participation is requested in all cases of faculty head uncertainty. Please assist us with the question(s) below: In responding to this query, please exercise your independent professional judgement. The fact that a question is asked does not imply that any particular answer is desired or expected. We appreciate your clarification on this issue. Please clarify SIRS below by marking all that apply with (X). Medical documentation: SIRS: afebrile, vitals stable, treated with Vancomycin and Rocephin (h/o Enterococcus and Staph) while admitted suspect UTI but culture only grew small quantities of several bacterial, likely skin ryan will d/c on Macrobid x 5 days per urology recommendations ( )Bacteremia (Nonspecific laboratory finding of bacteria in the blood) Specify Organism () Present on Admission () Not present on admission () Unable to clinically determine ( ) Septicemia (Systemic disease associated with the presence of pathogenic microorganisms in the blood): Specify Organism () Present on Admission () Not present on admission () Unable to clinically determine (x ) Sepsis Specify Organism : unknown, no growth on urine or blood culture Specify Associated Condition/Diagnosis (x) Present on Admission () Not present on admission () Unable to clinically determine ( ) Severe Sepsis (Sepsis associated with acute organ dysfunction) Specify Organism Specify Associated Condition/Diagnosis () Present on Admission () Not present on admission () Unable to clinically determine ( ) Septic Shock (Severe sepsis with acute circulatory failure, unexplained by other causes) () Present on Admission () Not present on admission () Unable to clinically determine ( ) Other, patient has: ( ) SIRS ( non-infective without organ dysfunction) ( ) Sepsis was ruled out ( ) SIRS was ruled out ( Non-invective without organ dysfunction) Thank you for your time. Beverly Leung, [employer] MOTOR DRIVER
--- NOTE | 2017-01-09 14:50 | EDITING REQUIRED CODING QUERY ---
CODING QUERY Dear Max, To promote full compliance with coding requirements relating to patient care, provider participation is requested in all cases of airplane pilot chief uncertainty. Please assist us with the question(s) below: Coding Question(s): Size of stone Please provide the size of stone removed. Physician's Response(s): 1cm Thank you for your time. Beverly Leung [facility] Principal Diagnosis: "_that condition established after study, to be chiefly responsible for occasioning the admission of the patient to the hospital for care." Co-Existing Principal Diagnosis: "_when two or more diagnoses equally meet the criteria for principal diagnosis as determined by the circumstances of admission, diagnostic work up, and/or therapy provided, and the Alphabetic Index, Tabular List, or another coding guideline does not provide sequencing direction, any one of the diagnoses may be sequenced first." "When the physician has documented what appears to be a current diagnosis in the body of the record, but has not included the diagnosis in the final diagnostic statement, the physician should be asked whether the diagnosis should be added." ([facility] 2 QTR90. p3-4)
== END 2016-10-30 12:23 | disposition home or self-care (01) | DRG 872 ==
LOC: ENRESERVDT → ENRESERVTM → C.EDB 19:18 → C.MED 22:05
PROVIDERS: ADMIT Internal Medicine; ATTEND Internal Medicine
PROC: 0TCD8ZZ Extirpation of Matter from Urethra, Via Natural or Artificial Opening Endoscopic (ICD-10-PCS; principal; 2016-10-29 15:30)
PROC: 0TPB8DZ Removal of Intraluminal Device from Bladder, Via Natural or Artificial Opening Endoscopic (ICD-10-PCS; principal; 2016-10-29 15:30)
PROC: 0T7D8ZZ Dilation of Urethra, Via Natural or Artificial Opening Endoscopic (ICD-10-PCS; principal; 2016-10-29 15:30)
PROC: 0TCB8ZZ Extirpation of Matter from Bladder, Via Natural or Artificial Opening Endoscopic (ICD-10-PCS; principal; 2016-10-29 15:30)
DX: A41.9 Sepsis, unspecified organism (principal); N39.0 Urinary tract infection, site not specified; T83.89XA Other specified complication of genitourinary prosthetic devices, implants and grafts, initial encounter; N21.0 Calculus in bladder; R65.10 Systemic inflammatory response syndrome (SIRS) of non-infectious origin without acute organ dysfunction; F32.9 Major depressive disorder, single episode, unspecified; N32.0 Bladder-neck obstruction; E87.6 Hypokalemia; R50.9 Fever, unspecified; I25.10 Atherosclerotic heart disease of native coronary artery without angina pectoris; J44.9 Chronic obstructive pulmonary disease, unspecified; E78.5 Hyperlipidemia, unspecified; R30.0 Dysuria; M40.209 Unspecified kyphosis, site unspecified; K21.9 Gastro-esophageal reflux disease without esophagitis; G47.33 Obstructive sleep apnea (adult) (pediatric); K44.9 Diaphragmatic hernia without obstruction or gangrene; I10 Essential (primary) hypertension; F41.9 Anxiety disorder, unspecified; M19.90 Unspecified osteoarthritis, unspecified site; I25.2 Old myocardial infarction; Z95.1 Presence of aortocoronary bypass graft; Z85.46 Personal history of malignant neoplasm of prostate; Z87.891 Personal history of nicotine dependence; Z99.89 Dependence on other enabling machines and devices; Z79.82 Long term (current) use of aspirin; Z79.899 Other long term (current) drug therapy; Z90.79 Acquired absence of other genital organ(s); Y83.8 Other surgical procedures as the cause of abnormal reaction of the patient, or of later complication, without mention of misadventure at the time of the procedure; Y73.8 Miscellaneous gastroenterology and urology devices associated with adverse incidents, not elsewhere classified

== ENCOUNTER 2016-10-31 22:02 | Inpatient (IN) | payer OTHER ==
[~2016-10-31] VITALS: Ht 185.4 cm; Wt 97.5 kg
[~2016-10-31 22:02] MED LIST changes: -DOXY100T PO; +NITR-5 PO
[2016-10-31] MEDS ORDERED: SODIUM CHLORIDE 0.9% 500ML 500 ML IV STA (22:28)
[2016-10-31] MEDS ORDERED: NITR-5 PO (22:36)
[2016-10-31] MEDS ORDERED: SILD1TAB11 PO (22:37)
--- NOTE | 2016-10-31 22:40 | DIAGNOSTIC IMAGING REPORT ---
CHEST ONE VIEW PORTABLE CLINICAL HISTORY: fever COMPARISON STUDY: 10/26/2016 FINDINGS: There are postsurgical changes of a midline sternotomy. The heart remains mildly enlarged. There is aortic tortuosity/ectasia. There is a nonspecific density overlapping the aortic knob, likely relating to overlying costochondral junction. There is no failure. There is no lobar consolidation. IMPRESSION: AP portable study. No evidence of focal pulmonary consolidation. No evidence of failure. Electronically signed by: Wu Simon M.D. 10/31/2016 10:39 PM Dictated Date/Time: 10/31/2016 10:38 PM
[2016-10-31 23:09] LABS: URINE APPEARANCE CLEAR (CLEAR); URINE BILIRUBIN NEG (NEG); URINE COLOR YELLOW; URINE NITRITE NEG (NEG); URINE SPECIFIC GRAVITY 1.008 (1.000-1.030); UROBILINOGEN NEG (NEG)
[2016-10-31 23:10] LABS: BASO % 0.3 %; BASO ABS # 0.02 K/uL (0-0.2); COMPLETE YES; EOS % 2.2 %; IG% 0.5 %; LYMPH % 2.7 %; LYMPH ABS # 0.21 K/uL (1.2-3.4); MANUAL MICROSCOPIC REQUIRED? NO; MEAN CELL VOLUME 93.6 fL (80-100); MEAN CORPUSCULAR HEMOGLOBIN 32.4 pg (25-34); MEAN CORPUSCULAR HGB CONC 34.6 g/dl (32-36); MEAN PLATELET VOLUME 10.1 fL (7.4-10.4); MONO % 6.5 %; NEUT % 87.8 %; PLATELET COUNT 103 K/uL (130-400); RED BLOOD COUNT 3.74 M/uL (4.7-6.1); REVIEW REQ? NO; WHITE BLOOD COUNT 7.74 K/uL (4.8-10.8)
[2016-10-31] MEDS ORDERED: CEFTRIAXONE SOD INJ 1 GM ADDVIAL IV STA (23:12)
[2016-10-31] MEDS ORDERED: VANCOMYCIN INJ 2,000 MG in SODIUM CHLORIDE 0.9% 250ML 250 ML IV STA (23:12)
[2016-10-31] MEDS ORDERED: VANCOMYCIN INJ 2,000 MG in SODIUM CHLORIDE 0.9% 500ML 500 ML IV STA (23:22)
[2016-10-31 23:27] LABS: BUN/CREATININE RATIO 14.6 (10-20); CALCIUM 9.2 mg/dl (8.5-10.1); CREATININE 0.9 mg/dl (0.60-1.40); POTASSIUM 3.5 mmol/L (3.5-5.1)
[2016-11-01] MEDS ORDERED: ZOLPIDEM TARTRATE 5 MG TAB PO PRN (00:15)
[2016-11-01] MEDS ORDERED: ACETAMINOPHEN 325 MG TAB PO PRN (00:15)
[2016-11-01 00:30] VITALS: BP 121/69; PULSE 82; TEMP 36.8; O2SAT 96; Ht 185.4 cm; Wt 97.5 kg
--- NOTE | 2016-11-01 00:55 | EMERGENCY ROOM VISIT NOTE ---
History Report prepared by Vesna: Rissa Mc Under the Supervision of: Dr. Driss Ya D.O. First contact with patient: 22:17 Chief Complaint: FEVER Stated Complaint: FEVER History of Present Illness The patient is a 76 year old male who presents to the Emergency Room with complaints of a persistent fever that was noticed earlier today. The patient was discharged from the hospital yesterday after being in the hospital to remove a stone from his bladder. He had felt well up until this evening. He is also experiencing urinary incontinence, but that has been ongoing for the past two months. Additionally, he is also experiencing nausea and vomiting. The patient adds that he is experiencing burning with urination, but he was told that he would experience that after he had the procedure. He denies cough, rhinorrhea, sore throat, and abdominal pain. The patient's reports that he is on Macrobid currently. The patient's states that they called Dr. Thomas - Urology and they told him to come into the ED. The patient had a Ann in while he was in the hospital, but it was removed yesterday. Source of History: patient Onset: earlier today Position: other (global) Quality: other (fever) Timing: other (persistent) Associated Symptoms: + nausea, + urinary symptoms (incontinence, burning with urination), + vomiting, No abdominal pain, No cough, No sorethroat Note: no rhinorrhea Review of Systems See HPI for pertinent positives & negatives. A total of 10 systems reviewed and were otherwise negative. Past Medical & Surgical Medical Problems: (1) Dysuria (2) Fever (3) Prostate cancer (4) UTI (urinary tract infection) Family History No pertinent family history Social History Smoking Status: Former Smoker Marital Status: Housing Status: lives with significant other Occupation Status: retired Current/Historical Medications Scheduled Aspirin (Aspirin Ec), 81 MG PO QAM Cholecalciferol (Vitamin D3), 4,000 UNITS PO DAILY Citalopram Hydrobromide (Celexa), 10 MG PO QAM Esomeprazole Magnesium (Nexium), 40 MG PO QPM Ezetimibe/Simvastatin (Vytorin 10-40 mg), 1 TAB PO QPM Hydrochlorothiazide (Hctz), 25 MG PO QAM Metoprolol Tartrate (Metoprolol Tartrate), 50 MG PO QAM Multivitamin (Multivitamin), 1 TAB PO QAM Nitrofurantoin Monohyd Macrocr (Macrobid), 100 MG PO BID Sildenafil Citrate (Viagra), 25 MG PO DAILY Allergies Coded Allergies: Metoclopramide (Verified Allergy, Unknown, Depression, 10/31/16) Sulfa Antibiotics (Verified Allergy, Unknown, rash, 10/31/16) Lisinopril (Verified Adverse Reaction, Mild, cough, 10/31/16) Physical Exam Vital Signs Date Time Temp Pulse Resp B/P Pulse Ox O2 Delivery O2 Flow Rate FiO2 10/31/16 22:11 36.9 114 16 104/66 94 Room Air Physical Exam GENERAL: alert, sitting up in bed, disheveled, well appearing, well nourished, no acute distress, non-toxic EYE EXAM: normal conjunctiva OROPHARYNX: no exudate, no erythema, lips, buccal mucosa, and tongue normal and mucous membranes are moist NECK: supple, no nuchal rigidity, no adenopathy, non-tender LUNGS: Clear to auscultation. Normal chest wall mechanics HEART: tachycardic rate, no murmurs, S1 normal and S2 normal ABDOMEN: abdomen soft, non-tender, normo-active bowel sounds, no masses, no rebound or guarding. BACK: Back is symmetrical on inspection and there is no deformity, no midline tenderness, no CVA tenderness. SKIN: no rashes and no bruising UPPER EXTREMITIES: upper extremities are grossly normal. LOWER EXTREMITIES: No pitting edema. : Normal external circumcised genitalia. NEURO EXAM: Normal sensorium, cranial nerves II-XII grossly intact, normal speech, no gross weakness of arms, no gross weakness of legs. Medical Decision & Procedures ER Provider Diagnostic Interpretation: Xray results per the radiologist and my interpretation. CHEST ONE VIEW PORTABLE IMPRESSION: AP portable study. No evidence of focal pulmonary consolidation. No evidence of failure. Electronically signed by: Wu Simon M.D. 10/31/2016 10:39 PM Dictated Date/Time: 10/31/2016 10:38 PM Laboratory Results 10/31/16 22:50 Red Blood Count 3.74, Mean Corpuscular Volume 93.6, Mean Corpuscular Hemoglobin 32.4, Mean Corpuscular Hemoglobin Concent 34.6, Mean Platelet Volume 10.1, Neutrophils (%) (Auto) 87.8, Lymphocytes (%) (Auto) 2.7, Monocytes (%) (Auto) 6.5, Eosinophils (%) (Auto) 2.2, Basophils (%) (Auto) 0.3, Neutrophils # (Auto) 6.80, Lymphocytes # (Auto) 0.21, Monocytes # (Auto) 0.50, Eosinophils # (Auto) 0.17, Basophils # (Auto) 0.02 10/31/16 22:50 Test 10/31/16 22:50 White Blood Count 7.74 K/uL (4.8-10.8) Red Blood Count 3.74 M/uL (4.7-6.1) Hemoglobin 12.1 g/dL (14.0-18.0) Hematocrit 35.0 % (42-52) Mean Corpuscular Volume 93.6 fL (80-100) Mean Corpuscular Hemoglobin 32.4 pg (25-34) Mean Corpuscular Hemoglobin Concent 34.6 g/dl (32-36) Platelet Count 103 K/uL (130-400) Mean Platelet Volume 10.1 fL (7.4-10.4) Neutrophils (%) (Auto) 87.8 % Lymphocytes (%) (Auto) 2.7 % Monocytes (%) (Auto) 6.5 % Eosinophils (%) (Auto) 2.2 % Basophils (%) (Auto) 0.3 % Neutrophils # (Auto) 6.80 K/uL (1.4-6.5) Lymphocytes # (Auto) 0.21 K/uL (1.2-3.4) Monocytes # (Auto) 0.50 K/uL (0.11-0.59) Eosinophils # (Auto) 0.17 K/uL (0-0.5) Basophils # (Auto) 0.02 K/uL (0-0.2) RDW Standard Deviation 45.1 fL (36.4-46.3) RDW Coefficient of Variation 13.2 % (11.5-14.5) Immature Granulocyte % (Auto) 0.5 % Immature Granulocyte # (Auto) 0.04 K/uL (0.00-0.02) Urine Color YELLOW Urine Appearance CLEAR (CLEAR) Urine pH 5.0 (4.5-7.5) Urine Specific [place] 1.008 (1.000-1.030) Urine Protein NEG (NEG) Urine Glucose (UA) NEG (NEG) Urine Ketones NEG (NEG) Urine Occult Blood 2+ (NEG) Urine Nitrite NEG (NEG) Urine Bilirubin NEG (NEG) Urine Urobilinogen NEG (NEG) Urine Leukocyte Esterase TRACE (NEG) Urine WBC (Auto) 1-5 /hpf (0-5) Urine RBC (Auto) 10-30 /hpf (0-4) Urine Hyaline Casts (Auto) 1-5 /lpf (0-5) Urine Epithelial Cells (Auto) 5-10 /lpf (0-5) Urine Bacteria (Auto) NEG (NEG) Anion Gap 12.0 mmol/L (3-11) Est Creatinine Clear Calc Drug Dose 88.5 ml/min Estimated GFR () 97.2 Estimated GFR (Non- 83.8 BUN/Creatinine Ratio 14.6 (10-20) Lactic Acid Level 1.4 mmol/L (0.4-2.0) Calcium Level 9.2 mg/dl (8.5-10.1) Total Bilirubin 0.8 mg/dl (0.2-1) Direct Bilirubin 0.2 mg/dl (0-0.2) Aspartate Amino Transf (AST/SGOT) 34 U/L (15-37) Alanine Aminotransferase (ALT/SGPT) 45 U/L (12-78) Alkaline Phosphatase 66 U/L (45-117) Total Protein 7.0 gm/dl (6.4-8.2) Albumin 3.4 gm/dl (3.4-5.0) Laboratory results per my review. Medications Administered Medications (Trade) Dose Ordered Sig/Mayank Route Start Time Stop Time Status Last Admin Dose Admin Sodium Chloride (Nss 500ml) 500 ml @ 999 mls/hr Q31M STAT IV 10/31/16 22:28 10/31/16 22:58 DC 10/31/16 23:01 999 MLS/HR Ceftriaxone Sodium 1 gm 1 gm NOW STAT IV 10/31/16 23:12 10/31/16 23:14 DC 10/31/16 23:24 1 GM Vancomycin HCl/ Sodium Chloride (Vancomycin Inj/ Nss 500ml) 540 ml @ 200 mls/hr NOW STAT IV 10/31/16 23:22 11/01/16 02:03 11/01/16 00:39 200 MLS/HR ED Course ED COURSE: Vital signs were reviewed and showed tachycardia. The patients medical record was reviewed The above diagnostic studies were performed and reviewed. ED treatments and interventions as stated above. 2221: The patient was evaluated in room A3. A complete history and physical examination was performed. 2228: Ordered Sodium Chloride 500 ml @ 999 mls/hr IV 2312: Ordered Rocephin Inj 1 gm IV 2315: I reviewed the patient's case with Dr. William Villarreal. He recommends admitting the patient. 2322: Ordered Vancomycin HCl 2000 mg/Sodium Chloride 450 ml @ 200 mls/hr IV 2323: I reviewed the patient's case with Dr. Sarah BYERS. He will evaluate the patient for further management. 2325: Upon reevaluation, the patient is resting comfortably. I discussed my findings with the patient and he understands and agrees with the treatment plan. Based on the patients age, coexisting illnesses, exam and lab findings the decision to treat as an inpatient was made. The patient remained stable while under my care. The patient will be evaluated for further management. Medical Decision Differential diagnosis includes etiologies such as sepsis, UTI, pneumonia, metabolic, electrolyte abnormalities, cardiac sources, intracerebral event, toxicologic, neurologic, as well as others were entertained. Patient is a 76-year-old male who since the ER for persistent fevers of 101. He is recently discharged yesterday from the hospital following removal of a stone by urology along with a clip per the patient. Vitals were remarkable for tachycardia. Labs show no significant leukocytosis or anemia. BMP along with LFTs, bilirubin and lactic acid were negative. UA shows blood, trace leuks and RBCs. I discussed case with Dr. Thomas who sent the patient in and he recommended IV antibiotics and admission. Patient was given Rocephin and vancomycin for his recent instrumentation with urology. Patient has absolutely no other complaints. He is otherwise well-appearing. He was given a bolus normal saline. He was in its internal medicine per urology's request with IV antibiotics to be evaluated in the morning. Consults Time Called: 2311 Consulting Physician: Dr. William Villarreal Returned Call: [phone] I reviewed the patient's case with Dr. William Villarreal. He recommends admitting the patient. Additional Consults: Time Called: 2317 Consulted Physician: Dr. Sarah BYERS Returned Call: [phone] Additional Comments: I reviewed the patient's case with Dr. Sarah BYERS. He will evaluate the patient for further management. Impression Primary Impression: Recurrent fever Additional Impression: Dysuria Scribe Attestation The scribe's documentation has been prepared under my direction and personally reviewed by me in its entirety. I confirm that the note above accurately reflects all work, treatment, procedures, and medical decision making performed by me. Departure Information Dispostion Being Evaluated By Hospitalist Referrals Trae Garza (PCP) Patient Instructions My [facility] Problem Qualifiers
[2016-11-01] MEDS ORDERED: VANCOMYCIN CONSULT ACTIVE PRN (01:00)
[2016-11-01] MEDS ORDERED: TPRSR/50 PO (01:02)
[2016-11-01] MEDS ORDERED: PIPERACILL/TAZOBAC CONSULT ACTIVE PRN (01:15)
[2016-11-01] MEDS ORDERED: PIPERACILL/TAZOBAC IV 3.375 GM in DEXTROSE 5% 100ML IV ONE (02:15)
--- NOTE | 2016-11-01 04:57 | History and Physical ---
History & Physical Date & Time of Service: Nov 01, 2016 at 04:45 Chief Complaint: Sirs, Uti Primary Care Physician: Trae Garza History of Present Illness Source: patient, spouse The patient's is a 76-year-old male referred in to the emergency department by Dr. Thomas for a persistent fever after being discharged from the hospital after recent stay from October 26 through October 30. He reports having had a prostate stone removed, and had a Ann placed will in the hospital, but was removed yesterday prior to discharge. Symptoms today included nausea, vomiting , and burning with urination. He has been taking his Macrobid twice a day as directed. Family History No pertinent family history Social History Smoking Status: Former Smoker Smokeless Tobacco Use: No Alcohol Use: none Drug Use: none Marital Status: Housing status: lives with family Occupational Status: retired Multi-Drug Resistant Organisms History of MDRO: No Allergies Coded Allergies: Metoclopramide (Verified Allergy, Unknown, Depression, 10/31/16) Sulfa Antibiotics (Verified Allergy, Unknown, rash, 10/31/16) Lisinopril (Verified Adverse Reaction, Mild, cough, 10/31/16) Home Medications Scheduled Aspirin (Aspirin Ec), 81 MG PO QAM Cholecalciferol (Vitamin D3), 4,000 UNITS PO DAILY Citalopram Hydrobromide (Celexa), 10 MG PO QAM Esomeprazole Magnesium (Nexium), 40 MG PO QPM Ezetimibe/Simvastatin (Vytorin 10-40 mg), 1 TAB PO QPM Hydrochlorothiazide (Hctz), 25 MG PO QAM Metoprolol Succinate (Metoprolol Succinate ER), 50 MG PO DAILY Multivitamin (Multivitamin), 1 TAB PO QAM Nitrofurantoin Monohyd Macrocr (Macrobid), 100 MG PO BID Sildenafil Citrate (Viagra), 25 MG PO DAILY Review of Systems The patient denies chest pain, palpitations, shortness of breath, cough, lower extremity swelling, vision change, hearing change, sore throat, blood in stool, dysuria, lightheadedness, dizziness, headache, memory loss, rash, abnormal bruising or bleeding, imbalance, focal or generalized weakness, numbness or tingling in arms or legs, arthralgias or myalgias, back or neck pain, night sweats, or allergy symptoms. The review of systems is otherwise negative other than for that already noted above, and at least 10 systems have been reviewed. Physical Exam Vital Signs Date Time Temp Pulse Resp B/P Pulse Ox O2 Delivery O2 Flow Rate FiO2 11/01/16 00:30 Room Air 11/01/16 00:30 36.8 82 18 121/69 96 Room Air 11/01/16 00:11 36.8 77 118/68 96 10/31/16 22:11 36.9 114 16 104/66 94 Room Air The patient is awake, well-developed and adequately nourished, alert and oriented 3, normocephalic and atraumatic, lying in bed and in no acute distress. HEENT--PERRL, EOMI, mucous membranes and oropharynx dry. Neck--supple, no JVD or bruits, thyroid normal, trachea midline, no adenopathy. Heart--normal S1 and S2, no extra beats, no murmurs, rubs or gallops. Lungs--clear bilaterally with good air movement, no respiratory distress, no accessory muscle use. Abdomen--normal bowel sounds and soft, mild suprapubic tenderness, nondistended , no hernias or masses, no organomegaly. Extremities--no cyanosis, clubbing or edema. There are good distal pulses b/l. Dermatologic--normal skin turgor, normal color, warm and dry, no abnormal lymph nodes, no rash. Neurologic--cranial nerves II through XII grossly intact, motor and sensory examination normal. Rheumatologic--normal range of motion, nontender, muscles and joints. Psychiatric--normal affect. Diagnostics Laboratory Results Results Past 24 Hours Test 10/31/16 22:50 Range/Units White Blood Count 7.74 4.8-10.8 K/uL Red Blood Count 3.74 4.7-6.1 M/uL Hemoglobin 12.1 14.0-18.0 g/dL Hematocrit 35.0 42-52 % Mean Corpuscular Volume 93.6 80-100 fL Mean Corpuscular Hemoglobin 32.4 25-34 pg Mean Corpuscular Hemoglobin Concent 34.6 32-36 g/dl Platelet Count 103 130-400 K/uL Mean Platelet Volume 10.1 7.4-10.4 fL Neutrophils (%) (Auto) 87.8 % Lymphocytes (%) (Auto) 2.7 % Monocytes (%) (Auto) 6.5 % Eosinophils (%) (Auto) 2.2 % Basophils (%) (Auto) 0.3 % Neutrophils # (Auto) 6.80 1.4-6.5 K/uL Lymphocytes # (Auto) 0.21 1.2-3.4 K/uL Monocytes # (Auto) 0.50 0.11-0.59 K/uL Eosinophils # (Auto) 0.17 0-0.5 K/uL Basophils # (Auto) 0.02 0-0.2 K/uL RDW Standard Deviation 45.1 36.4-46.3 fL RDW Coefficient of Variation 13.2 11.5-14.5 % Immature Granulocyte % (Auto) 0.5 % Immature Granulocyte # (Auto) 0.04 0.00-0.02 K/uL Urine Color YELLOW Urine Appearance CLEAR CLEAR Urine pH 5.0 4.5-7.5 Urine Specific [place] 1.008 1.000-1.030 Urine Protein NEG NEG Urine Glucose (UA) NEG NEG Urine Ketones NEG NEG Urine Occult Blood 2+ NEG Urine Nitrite NEG NEG Urine Bilirubin NEG NEG Urine Urobilinogen NEG NEG Urine Leukocyte Esterase TRACE NEG Urine WBC (Auto) 1-5 0-5 /hpf Urine RBC (Auto) 10-30 0-4 /hpf Urine Hyaline Casts (Auto) 1-5 0-5 /lpf Urine Epithelial Cells (Auto) 5-10 0-5 /lpf Urine Bacteria (Auto) NEG NEG Sodium Level 140 136-145 mmol/L Potassium Level 3.5 3.5-5.1 mmol/L Chloride Level 105 98-107 mmol/L Carbon Dioxide Level 23 21-32 mmol/L Anion Gap 12.0 3-11 mmol/L Blood Urea Nitrogen 13 7-18 mg/dl Creatinine 0.90 0.60-1.40 mg/dl Est Creatinine Clear Calc Drug Dose 88.5 ml/min Estimated GFR () 97.2 Estimated GFR (Non- 83.8 BUN/Creatinine Ratio 14.6 10-20 Random Glucose 117 70-99 mg/dl Lactic Acid Level 1.4 0.4-2.0 mmol/L Calcium Level 9.2 8.5-10.1 mg/dl Total Bilirubin 0.8 0.2-1 mg/dl Direct Bilirubin 0.2 0-0.2 mg/dl Aspartate Amino Transf (AST/SGOT) 34 15-37 U/L Alanine Aminotransferase (ALT/SGPT) 45 12-78 U/L Alkaline Phosphatase 66 45-117 U/L Total Protein 7.0 6.4-8.2 gm/dl Albumin 3.4 3.4-5.0 gm/dl Diagnostic Radiology Patient Name: ANGELINE WEN Unit Number: [id number] Dictated: 10/31/162237 Transcribed: 10/31/162237 ARG Printed Date/Time: [~ rep prt dt]/[~ rep prt tm] [~ rep ct labl] - [~ rep ct ivnm] [facility] [place] [address] Dictated: 10/31/162237 Transcribed: 10/31/162237 ARG Printed Date/Time: [~ rep prt dt]/[~ rep prt tm] [~ rep ct labl] - [~ rep ct ivnm] CHEST ONE VIEW PORTABLE CLINICAL HISTORY: fever COMPARISON STUDY: 10/26/2016 FINDINGS: There are postsurgical changes of a midline sternotomy. The heart remains mildly enlarged. There is aortic tortuosity/ectasia. There is a nonspecific density overlapping the aortic knob, likely relating to overlying costochondral junction. There is no failure. There is no lobar consolidation. IMPRESSION: AP portable study. No evidence of focal pulmonary consolidation. No evidence of failure. Electronically signed by: Wu Simon M.D. 10/31/2016 10:39 PM Dictated Date/Time: 10/31/2016 10:38 PM The status of this report is Signed. Draft = Not yet reviewed or approved by Radiologist. Signed = Reviewed and approved by Radiologist. <AttendingPhy></AttendingPhy> <FamilyPhy>Trae Garza</FamilyPhy> <PrimaryPhy> Trae Garza</PrimaryPhy> <UnitNumber>[id number]</UnitNumber> <VisitNumber> [id number]</VisitNumber> <PatientName>ANGELINE WEN</PatientName> < DateOfBirth>1940</DateOfBirth> <Location>[facility]</Location> <ServiceDate>05/11</ServiceDate> <MNE>ESINDI</MNE> <OrderingPhy>Driss Ya DO</ OrderingPhy> <OrderingPhyMNE>f rep ord dr jones</OrderingPhyMNE> <DictatingPhyMNE> f rep dict dr jones</DictatingPhyMNE> <CCListMNE>f rep ct roberto carlose</CCListMNE> < AdmittingPhyMNE>f pt admit dr jones</AdmittingPhyMNE> <AttendingPhyMNE>f pt attend dr jones</AttendingPhyMNE> <ConsultingPhyMNE>f pt consult dr jones</ConsultingPhyMNE> <FamilyPhyMNE>f pt fam dr jones</FamilyPhyMNE> <OtherPhyMNE>f pt other dr jones</OtherPhyMNE> < PrimaryPhyMNE>f pt prim care dr jones</PrimaryPhyMNE> <ReferringPhyMNE>f pt referring dr jones</ReferringPhyMNE> Impression Assessment and Plan Complicated UTI/prostate cancer/status post recent urologic procedure/referred by urology due to elevated temperature--the patient be admitted to the medical surgical floor. He was started on vancomycin IV and ceftriaxone IV in the emergency department, he will be continued on vancomycin IV and started on Zosyn IV for this admission. We'll follow urine culture and sensitivity results , consult urology. We will hold Macrobid 100 mg by mouth twice a day. Hypertension--continue metoprolol tartrate 50 mg by mouth every morning, and hold HCTZ 25 mg every morning and aspirin 81 mg every morning. Hypercholesterolemia--continue Vytorin 10/40 by mouth daily. GERD--change Nexium 40 mg by mouth daily to pantoprazole 40 mg by mouth daily. Depression--continue Celexa 10 mg by mouth every morning. Level of Care Med/Surg Advanced Directives Existing Advance Directive: No Existing Living Will: No Existing Power of Behavior Therapist: No Resuscitation Status FULL RESUSCITATION VTE Prophylaxis VTE Risk Assessment Done? Y/N: Yes Risk Level: Moderate Given or contraindicated: SCD's Social Service Consult None Apply
[2016-11-01 07:57] VITALS: BP 134/72; PULSE 66; TEMP 37.1; O2SAT 95
[2016-11-01 08:26] VITALS: O2SAT 95
[2016-11-01] MEDS: CHOLECALCIFEROL 1000 INTER.UNIT TAB PO SCH (08:50)
[2016-11-01] MEDS: METOPROLOL SUCC 50MG EXT REL TAB PO SCH (08:50)
[2016-11-01] MEDS: MULTIVITAMIN TAB PO SCH (08:50)
[2016-11-01] MEDS: CITALOPRAM 20 MG TAB PO SCH (08:50)
[2016-11-01] MEDS: ASPIRIN 81 MG ECTAB PO SCH (08:50)
[2016-11-01] MEDS: PANTOprazole SOD 40 MG TAB PO SCH (08:51)
[2016-11-01] MEDS: PIPERACILL/TAZOBAC IV 3.375 GM in DEXTROSE 5% 100ML 100 ML IV SCH ×3 (08:54→23:18)
--- NOTE | 2016-11-01 09:36 | Pharmacy Progress Note ---
Pharmacy Antibiotic Consult Date of Service: Nov 01, 2016. Pharmacy Dosing Scope Pharmacy is consulted to initiate Vanco/Zosyn IV dosing therapy, order appropriate labs and adjust drug dose/frequency. Subjective The patient is a 76 year old male admitted on Oct 31, 2016 at 23:52. Objective Height (Feet): 6 Height (Inches): 1.00 Weight (Kilograms): 97.500 Lab Results (24hrs): Item Value Date Time Creatinine 0.90 mg/dl 10/31/16 2250 Est Creatinine Clear Calc Drug Dose 88.5 ml/min 10/31/16 2250 Laboratory Tests Test 10/31/16 22:50 BUN/Creatinine Ratio 14.6 Blood Urea Nitrogen 13 mg/dl Creatinine 0.90 mg/dl White Blood Count 7.74 K/uL Red Blood Count 3.74 M/uL Hemoglobin 12.1 g/dL Hematocrit 35.0 % Mean Corpuscular Volume 93.6 fL Mean Corpuscular Hemoglobin 32.4 pg Mean Corpuscular Hemoglobin Concent 34.6 g/dl Platelet Count 103 K/uL Mean Platelet Volume 10.1 fL Neutrophils (%) (Auto) 87.8 % Lymphocytes (%) (Auto) 2.7 % Monocytes (%) (Auto) 6.5 % Eosinophils (%) (Auto) 2.2 % Basophils (%) (Auto) 0.3 % Neutrophils # (Auto) 6.80 K/uL Lymphocytes # (Auto) 0.21 K/uL Monocytes # (Auto) 0.50 K/uL Eosinophils # (Auto) 0.17 K/uL Basophils # (Auto) 0.02 K/uL Assessment & Plan Pt is a 76yo M being re-admitted. Pt is familiar to the pharmacy kinetic team. Pt p/w with complicated UTI. He was started on IV Vanc and Rocephin in the ED. He has a h/o of Coag Neg Staph and Gutierrez sens E. Faecalis in the Urine. Pt population p'kinetics: t1/2=8.8hrs, ke=0.0783. No cultures ordered as of now. Vanco * Loading dose: Vanco 2000mg (21mg/kg) IV X 1 dose at 0039 on 10/31 then: * Vanco 1500mg (15mg/kg) IV every 12 hours set to start immediately. * Goal trough level estimate: between 15 - 20 mcg/mL. * Trough level has been ordered for: prior to the 4th MD. Zosyn: * Received 30 min infsn * Receiving EI Zosyn 3.375g q8, appropriate for clinical status and eCrCl>20cc/ min Thank you for consulting the pharmacy kinetic team and including us in the care of Mr. Sesay. Pharmacy will continue to follow and will adjust dose/frequency as necessary. Thank you
[2016-11-01] MEDS: VANCOMYCIN INJ 1,500 MG in SODIUM CHLORIDE 0.9% 500ML 500 ML IV SCH ×2 (10:04→21:36)
--- NOTE | 2016-11-01 10:41 | Urology Consultation ---
History General Date of Service: Nov 01, 2016. Primary Care Physician: Trae Garza Pt seen a urologist before?: Yes If yes, why?: bladder stone, BPH History of Present Illness 76 year old male with complaints of fever and voiding symptoms at home. He is known to our service, recently hospitalized, s/p cystolitholapaxy and removal of foreign bladder object and urethral dilation. He had complaints of persistent fever at home. Afebrile during hospitalization. Reviewed his previous chart- he did have a + urine culture on 10/21 for coag neg staph. Urine culture on 10/[address] abd/pelvis on 10/21 only showed 2 other nonobstructing punctate stones Urine culture and blood cultures from this admission are pending. UA is not suspicious for UTI He was on Macrobid at home. C/O nausea as well. His white count is normal. H/H stable. Denies gross hematuria Received IV Vanc and Rocephin in ER. He is now receiving IV Vanc and Zosyn. Laboratory Last 24 Hours Test 10/31/16 22:50 White Blood Count 7.74 K/uL Red Blood Count 3.74 M/uL Hemoglobin 12.1 g/dL Hematocrit 35.0 % Mean Corpuscular Volume 93.6 fL Mean Corpuscular Hemoglobin 32.4 pg Mean Corpuscular Hemoglobin Concent 34.6 g/dl Platelet Count 103 K/uL Mean Platelet Volume 10.1 fL Neutrophils (%) (Auto) 87.8 % Lymphocytes (%) (Auto) 2.7 % Monocytes (%) (Auto) 6.5 % Eosinophils (%) (Auto) 2.2 % Basophils (%) (Auto) 0.3 % Neutrophils # (Auto) 6.80 K/uL Lymphocytes # (Auto) 0.21 K/uL Monocytes # (Auto) 0.50 K/uL Eosinophils # (Auto) 0.17 K/uL Basophils # (Auto) 0.02 K/uL RDW Standard Deviation 45.1 fL RDW Coefficient of Variation 13.2 % Immature Granulocyte % (Auto) 0.5 % Immature Granulocyte # (Auto) 0.04 K/uL Urine Color YELLOW Urine Appearance CLEAR Urine pH 5.0 Urine Specific [place] 1.008 Urine Protein NEG Urine Glucose (UA) NEG Urine Ketones NEG Urine Occult Blood 2+ Urine Nitrite NEG Urine Bilirubin NEG Urine Urobilinogen NEG Urine Leukocyte Esterase TRACE Urine WBC (Auto) 1-5 /hpf Urine RBC (Auto) 10-30 /hpf Urine Hyaline Casts (Auto) 1-5 /lpf Urine Epithelial Cells (Auto) 5-10 /lpf Urine Bacteria (Auto) NEG Sodium Level 140 mmol/L Potassium Level 3.5 mmol/L Chloride Level 105 mmol/L Carbon Dioxide Level 23 mmol/L Anion Gap 12.0 mmol/L Blood Urea Nitrogen 13 mg/dl Creatinine 0.90 mg/dl Est Creatinine Clear Calc Drug Dose 88.5 ml/min Estimated GFR () 97.2 Estimated GFR (Non- 83.8 BUN/Creatinine Ratio 14.6 Random Glucose 117 mg/dl Lactic Acid Level 1.4 mmol/L Calcium Level 9.2 mg/dl Total Bilirubin 0.8 mg/dl Direct Bilirubin 0.2 mg/dl Aspartate Amino Transf (AST/SGOT) 34 U/L Alanine Aminotransferase (ALT/SGPT) 45 U/L Alkaline Phosphatase 66 U/L Total Protein 7.0 gm/dl Albumin 3.4 gm/dl Current Inpatient Medications Medications (Trade) Dose Ordered Sig/Mayank Route Start Time Stop Time Status Last Admin Dose Admin Acetaminophen (Tylenol Tab) 650 mg Q4H PRN PO 11/01/16 00:15 12/01/16 00:14 Zolpidem Tartrate (Ambien Tab) 5 mg HSZ PRN PO 11/01/16 00:15 12/01/16 00:14 Aspirin (Ecotrin Tab) 81 mg QAM PO 11/01/16 09:00 12/01/16 08:59 11/01/16 08:50 81 MG Citalopram Hydrobromide (celeXA TAB) 10 mg QAM PO 11/01/16 09:00 12/01/16 08:59 11/01/16 08:50 10 MG Ezetimibe/ Simvastatin (Vytorin 10/40 Tab) 1 tab QPM PO 11/01/16 21:00 12/01/16 20:59 Metoprolol Succinate (Toprol Xl Tab) 50 mg DAILY PO 11/01/16 09:00 12/01/16 08:59 11/01/16 08:50 50 MG Multivitamins (Multivitamin Tab) 1 tab QAM PO 11/01/16 09:00 12/01/16 08:59 11/01/16 08:50 1 TAB Cholecalciferol (Vitamin D Tab) 4,000 inter.unit QAM PO 11/01/16 09:00 12/01/16 08:59 11/01/16 08:50 4,000 INTER.UNIT Pantoprazole Sodium (Protonix Tab) 40 mg QAM PO 11/01/16 09:00 12/01/16 08:59 11/01/16 08:51 40 MG Vancomycin HCl 1 ea 1 ea UD PRN N/A 11/01/16 01:00 12/01/16 00:59 Piperacillin Sod/ Tazobactam Sod/ Dextrose (Zosyn Iv/D5 100ml) 115 ml @ 28.75 mls/ hr Q8H IV 11/01/16 08:00 11/11/16 07:59 11/01/16 08:54 28.75 MLS/HR Piperacillin Sod/ Tazobactam Sod 1 ea 1 ea UD PRN N/A 11/01/16 01:15 12/01/16 01:14 Vancomycin HCl/ Sodium Chloride (Vancomycin Inj/ Nss 500ml) 530 ml @ 200 mls/hr Q12@1000,2200 IV 11/01/16 10:00 11/11/16 09:59 11/01/16 10:04 200 MLS/HR Labs were reviewed and are within normal limits unless listed below. Labs are available in the chart and at [facility] Problem List Medical Problems: (1) Recurrent fever Status: Acute Past History cancer - prostate Past Surgical History: other (cystolitholapaxy, urethral dilation) Family History No pertinent family history Social History Hx Tobacco Use In Past Year?: No (Smoked 1 1/2 PPD x30yrs - quit 25 yrs ago ) Marital status: Housing status: lives with family Occupation status: retired History of MDRO No Allergies Coded Allergies: Metoclopramide (Verified Allergy, Unknown, Depression, 10/31/16) Sulfa Antibiotics (Verified Allergy, Unknown, rash, 10/31/16) Lisinopril (Verified Adverse Reaction, Mild, cough, 10/31/16) Medications Home Medications: Home Meds and Scripts Medications Dose Route/Sig Max Daily Dose Days Date Category Dose Instructions Metoprolol Succinate ER (Metoprolol Succinate) 50 Mg Tabcr 50 Mg PO DAILY 11/01/16 Reported Viagra (Sildenafil Citrate) 25 Mg Tab 25 Mg PO DAILY 10/31/16 Reported Macrobid (Nitrofurantoin Macrocrystals) 100 Mg Cap 100 Mg PO BID 10/31/16 Reported Multivitamin (Multivitamins) Tab 1 Tab PO QAM 10/21/16 Reported Vitamin D3 (Cholecalciferol) 2,000 Unit Cap 4,000 Units PO DAILY 90 11/01/15 Reported takes anytime Nexium (Esomeprazole Magnesium) 40 Mg Capcr 40 Mg PO QPM 11/01/15 Reported Aspirin Ec (Aspirin) 81 Mg Tab 81 Mg PO QAM 11/01/15 Reported Vytorin 10-40 mg (Ezetimibe/Simvastatin) 1 Tab Tab 1 Tab PO QPM 08/09/15 Reported Hctz (Hydrochlorothiazide) 25 Mg Tab 25 Mg PO QAM 30 08/09/15 Reported Celexa (Citalopram Hydrobromide) 10 Mg Tab 10 Mg PO QAM 30 08/09/15 Reported Inpatient Medications: Current Inpatient Medications Medications (Trade) Dose Ordered Sig/Mayank Route Start Time Stop Time Status Last Admin Dose Admin Acetaminophen (Tylenol Tab) 650 mg Q4H PRN PO 11/01/16 00:15 12/01/16 00:14 Zolpidem Tartrate (Ambien Tab) 5 mg HSZ PRN PO 11/01/16 00:15 12/01/16 00:14 Aspirin (Ecotrin Tab) 81 mg QAM PO 11/01/16 09:00 12/01/16 08:59 11/01/16 08:50 81 MG Citalopram Hydrobromide (celeXA TAB) 10 mg QAM PO 11/01/16 09:00 12/01/16 08:59 11/01/16 08:50 10 MG Ezetimibe/ Simvastatin (Vytorin 10/40 Tab) 1 tab QPM PO 11/01/16 21:00 12/01/16 20:59 Metoprolol Succinate (Toprol Xl Tab) 50 mg DAILY PO 11/01/16 09:00 12/01/16 08:59 11/01/16 08:50 50 MG Multivitamins (Multivitamin Tab) 1 tab QAM PO 11/01/16 09:00 12/01/16 08:59 11/01/16 08:50 1 TAB Cholecalciferol (Vitamin D Tab) 4,000 inter.unit QAM PO 11/01/16 09:00 12/01/16 08:59 11/01/16 08:50 4,000 INTER.UNIT Pantoprazole Sodium (Protonix Tab) 40 mg QAM PO 11/01/16 09:00 12/01/16 08:59 11/01/16 08:51 40 MG Vancomycin HCl 1 ea 1 ea UD PRN N/A 11/01/16 01:00 12/01/16 00:59 Piperacillin Sod/ Tazobactam Sod/ Dextrose (Zosyn Iv/D5 100ml) 115 ml @ 28.75 mls/ hr Q8H IV 11/01/16 08:00 11/11/16 07:59 11/01/16 08:54 28.75 MLS/HR Piperacillin Sod/ Tazobactam Sod 1 ea 1 ea UD PRN N/A 11/01/16 01:15 12/01/16 01:14 Vancomycin HCl/ Sodium Chloride (Vancomycin Inj/ Nss 500ml) 530 ml @ 200 mls/hr Q12@1000,2200 IV 11/01/16 10:00 11/11/16 09:59 11/01/16 10:04 200 MLS/HR Review of Systems Review of Systems Constitutional: No fever Eyes: No blurred vision Neurological: No dizzy Endocrine: No excessive thirst Gastrointestinal: No abdominal pain Cardiovascular: No chest pain Respiratory: No shortness of breath Male : + see HPI Physical Exam Vital Signs: Vital Signs Past 12 Hours Date Time Temp Pulse Resp B/P Pulse Ox O2 Delivery O2 Flow Rate FiO2 11/01/16 08:26 95 Room Air 11/01/16 08:00 Room Air 11/01/16 07:57 37.1 66 18 134/72 95 Room Air 11/01/16 00:30 Room Air 11/01/16 00:30 36.8 82 18 121/69 96 Room Air 11/01/16 00:11 36.8 77 118/68 96 Physical Exam: General Appearance: WD/WN, no apparent distress ENT: TMs normal Respiratory/Chest: no respiratory distress, no accessory muscle use Extremities: normal inspection, no pedal edema, no calf tenderness Neurologic/Psychiatric: alert, normal mood/affect, oriented x 3 Skin: normal color, warm/dry, no rash Assessment & Plan Assessment & Plan s/p bladder stone litho and urethral dilation Previous urine culture was negative. Pt was on oral nitrofurantoin and was complaining of persistent fever at home. Recommend bladder scanning pt to ensure he is emptying properly. If >250 ml call Recommend 24 hour observation and IV antibiotics per primary service. If remains afebrile and stable recommend d/c home on Cipro BID x 7days or other antibx per culture sensitivities. Thanks for the consult. Will continue to follow along with primary service.
[2016-11-01 15:20] VITALS: BP 137/74; PULSE 62; TEMP 36.3; O2SAT 97
[2016-11-01 16:00] VITALS: O2SAT 97
[2016-11-01] MEDS ORDERED: EZETIMIBE/SIMVASTATIN 10/40 TAB PO SCH (21:00)
[2016-11-01 23:15] VITALS: BP 110/63; PULSE 52; TEMP 36.5; O2SAT 96
[2016-11-02 07:14] LABS: CREATININE 0.95 mg/dl (0.60-1.40)
[2016-11-02 08:01] VITALS: BP 102/66; PULSE 60; TEMP 36.1; O2SAT 95
[2016-11-02 08:41] VITALS: O2SAT 95
[2016-11-02] MEDS: PIPERACILL/TAZOBAC IV 3.375 GM in DEXTROSE 5% 100ML 100 ML IV SCH (09:32)
[2016-11-02] MEDS: ASPIRIN 81 MG ECTAB PO SCH (09:32)
[2016-11-02] MEDS: MULTIVITAMIN TAB PO SCH (09:32)
[2016-11-02] MEDS: PANTOprazole SOD 40 MG TAB PO SCH (09:32)
[2016-11-02] MEDS: CITALOPRAM 20 MG TAB PO SCH (09:33)
[2016-11-02] MEDS: METOPROLOL SUCC 50MG EXT REL TAB PO SCH (09:33)
[2016-11-02] MEDS: CHOLECALCIFEROL 1000 INTER.UNIT TAB PO SCH (09:33)
[2016-11-02] MEDS ORDERED: CIPR-255 PO (09:49)
--- NOTE | 2016-11-02 09:51 | Discharge Instructions ---
Discharge Instructions Date of Service Nov 02, 2016. Admission Reason for Admission: Sirs, Uti Discharge Discharge Diagnosis / Problem: UTI Discharge Goals Goal(s): Decrease discomfort, Improve function, Increase independence, Improve disease control, Learn about illness, Diagnostic testing Activity Recommendations Activity Limitations: resume your previous activity Exercise/Sports Limitations: none Shower/Bathe: no limitations . Instructions / Follow-Up Instructions / Follow-Up Patient to be discharged home Please take antibiotic cipro twice a day for 7 days, script sent electronically to pharmacy May have low grade fevers next few days, only recommend coming to ER if temp>101 Please follow up with urology as scheduled Current Hospital Diet Patient's current hospital diet: Regular Diet Discharge Diet Recommended Diet: Regular Diet Pending Studies Studies pending at discharge: no Medical Emergencies . Who to Call and When: Medical Emergencies: If at any time you feel your situation is an emergency, please call 911 immediately. . Non-Emergent Contact Non-Emergency issues call your: Primary Care Provider Call Non-Emergent contact if: temperature is above 101, your pain is worsening . . "Provider Documentation" section prepared by Cornelius Allen. VTE Core Measure Inpt VTE Proph given/why not?: SCD's
[2016-11-02] MEDS: VANCOMYCIN INJ 1,500 MG in SODIUM CHLORIDE 0.9% 500ML 500 ML IV SCH (10:00)
[2016-11-02 11:30] VITALS: BP 127/75; PULSE 60; TEMP 36.7; O2SAT 94
--- NOTE | 2016-11-02 13:11 | Discharge Summary ---
Discharge Summary Date of Service Nov 02, 2016. Discharge Summary Admission Date: Oct 31, 2016 at 23:52 Discharge Date: Nov 02, 2016 Discharge Disposition: Home Principal Diagnosis: UTI, prostate cancer Consultations: Urology Medication Reconciliation New Medications: Ciprofloxacin Hcl (Cipro) 500 Mg Tab 500 MG PO BID for 7 Days, #14 TAB Continued Medications: Aspirin (Aspirin Ec) 81 Mg Tab 81 MG PO QAM Cholecalciferol (Vitamin D3) 2,000 Unit Cap 4000 UNITS PO DAILY for 90 Days, CAP 3 Refills takes anytime Citalopram Hydrobromide (Celexa) 10 Mg Tab 10 MG PO QAM for 30 Days, #30 TAB 2 Refills Esomeprazole Magnesium (Nexium) 40 Mg Capcr 40 MG PO QPM, CAP Ezetimibe/Simvastatin (Vytorin 10-40 mg) 1 Tab Tab 1 TAB PO QPM Hydrochlorothiazide (Hctz) 25 Mg Tab 25 MG PO QAM for 30 Days, #30 TAB 5 Refills Metoprolol Succinate (Metoprolol Succinate ER) 50 Mg Tabcr 50 MG PO DAILY Multivitamin (Multivitamin) Tab 1 TAB PO QAM, TAB Sildenafil Citrate (Viagra) 25 Mg Tab 25 MG PO DAILY, TAB Discontinued Medications: Nitrofurantoin Monohyd Macrocr (Macrobid) 100 Mg Cap 100 MG PO BID Discharge Exam Review of Systems: Constitutional: No chills, No fever Respiratory: No cough, No sputum Cardiovascular: No chest pain, No orthopnea Abdomen: No diarrhea, No nausea, No pain, No vomiting Musculoskeletal: No joint pain, No muscle pain Genitourinary - Female: No dysuria, No urinary frequency, No urinary urgency Neurologic: No paralysis, No weakness Physical Exam: General Appearance: WD/WN, no apparent distress Neck: supple, no adenopathy Respiratory/Chest: lungs clear, normal breath sounds Cardiovascular: no edema, no gallop Abdomen / GI: non tender, soft Neurologic/Psychiatric: alert, oriented x 3 Skin: normal color, warm/dry Hospital Course Complicated UTI/prostate cancer/status post recent urologic procedure/referred by urology due to elevated temperature--the patient was admitted to the medical surgical floor. He was started on vancomycin IV and ceftriaxone IV in the emergency department, he will be continued on vancomycin IV and started on Zosyn IV for this admission. We'll follow urine culture and sensitivity results , consult urology. We will hold Macrobid 100 mg by mouth twice a day and start on cipro twice a day for 7 days on discharge. No fevers noted. Urine was never collected. Discharged home. Hypertension--continue metoprolol tartrate 50 mg by mouth every morning, and hold HCTZ 25 mg every morning and aspirin 81 mg every morning. Hypercholesterolemia--continue Vytorin 10/40 by mouth daily. GERD--change Nexium 40 mg by mouth daily to pantoprazole 40 mg by mouth daily. Depression--continue Celexa 10 mg by mouth every morning. Total Time Spent: Greater than 30 minutes This includes examination of the patient, discharge planning, medication reconciliation, and communication with other providers. Discharge Instructions Please refer to the electronic Patient Visit Report (Discharge Instructions) for additional information. Additional Copies To Trae Garza
[2016-11-02] MEDS ORDERED: VANCOMYCIN TROUGH ONE (21:30)
--- NOTE | 2016-11-04 11:37 | EDITING REQUIRED CODING QUERY ---
CODING QUERY To promote full compliance with coding requirements relating to patient care, provider participation is requested in all cases of prepared foods production team member uncertainty. Please assist us with the question(s) below: Coding Question(s): Patient admitted one day status post bladder stone lithotripsy and urethral dilation. Please check the phrase that describes the Urinary Track Infection. Thank you. Roldan Solo STAKING TECHNICIAN [facility] Physician's Response(s): UTI is not a complication of the urological procedure UTI is a complication of the urological procedure X____ Cannot clinically correlate if the UTI is a complication of the urological procedure Other : Please document: Principal Diagnosis: "_that condition established after study, to be chiefly responsible for occasioning the admission of the patient to the hospital for care." Co-Existing Principal Diagnosis: "_when two or more diagnoses equally meet the criteria for principal diagnosis as determined by the circumstances of admission, diagnostic work up, and/or therapy provided, and the Alphabetic Index, Tabular List, or another coding guideline does not provide sequencing direction, any one of the diagnoses may be sequenced first." "When the physician has documented what appears to be a current diagnosis in the body of the record, but has not included the diagnosis in the final diagnostic statement, the physician should be asked whether the diagnosis should be added." ([facility] 2 QTR90. p3-4)
== END 2016-11-02 13:56 | disposition home or self-care (01) | DRG 690 ==
LOC: ENRESERVTM → ENRESERVDT → C.EDB 22:03 → C.MSW 23:52
PROVIDERS: ADMIT Hospitalist; ATTEND Hospitalist
DX: N39.0 Urinary tract infection, site not specified (principal); C61 Malignant neoplasm of prostate; I10 Essential (primary) hypertension; E78.00 Pure hypercholesterolemia, unspecified; K21.9 Gastro-esophageal reflux disease without esophagitis; F32.9 Major depressive disorder, single episode, unspecified; N40.0 Benign prostatic hyperplasia without lower urinary tract symptoms; Z87.891 Personal history of nicotine dependence

== ENCOUNTER 2017-08-06 09:09 | Inpatient (IN) | payer OTHER ==
[2017-07-04 13:16] VITALS: BMI 29.0
--- NOTE | 2017-07-04 14:00 | PAT Medication Instructions ---
Service Date Jul 04, 2017. Current Home Medication List Aspirin (Aspirin Ec), 81 MG PO QAM Cholecalciferol (Vitamin D3), 4,000 UNITS PO DAILY Citalopram Hydrobromide (Celexa), 10 MG PO QAM Doxycycline Monohydrate (Monodox), 100 MG PO Q2D Esomeprazole Magnesium (Nexium), 40 MG PO QPM Ezetimibe/Simvastatin (Vytorin 10-40 mg), 1 TAB PO QPM Hydrochlorothiazide (Hctz), 25 MG PO QAM Metoprolol Succinate (Metoprolol Succinate ER), 50 MG PO QAM Multivitamin (Multivitamin), 1 TAB PO QAM Tadalafil (Cialis), 5 MG PO QAM Tolterodine Tartrate (Detrol), 1 TAB PO QAM Medication Instructions For Your Scheduled Surgery - Hold the following medications the morning of surgery: Hydrochlorothiazide (Hctz), 25 MG PO QAM Multivitamin (Multivitamin), 1 TAB PO QAM Tadalafil (Cialis), 5 MG PO QAM Cholecalciferol (Vitamin D3), 4,000 UNITS PO DAILY Doxycycline Monohydrate (Monodox), 100 MG PO Q2D - Take the following medications the morning of surgery with a sip of water OTHERWISE NOTHING TO EAT OR DRINK AFTER MIDNIGHT: Aspirin (Aspirin Ec), 81 MG PO QAM Citalopram Hydrobromide (Celexa), 10 MG PO QAM Tolterodine Tartrate (Detrol), 1 TAB PO QAM Metoprolol Succinate (Metoprolol Succinate ER), 50 MG PO QAM - Take the following medications as scheduled the night before surgery: Esomeprazole Magnesium (Nexium), 40 MG PO QPM Ezetimibe/Simvastatin (Vytorin 10-40 mg), 1 TAB PO QPM If you have any questions please call us at [phone] or [phone] or [phone]
[2017-07-04 15:18] LABS: BASO % 0.3 %; BASO ABS # 0.02 K/uL (0-0.2); COMPLETE YES; HEMATOCRIT 40.3 % (42-52); IG% 0.5 %; LYMPH % 21.2 %; MEAN CELL VOLUME 91.6 fL (80-100); MEAN CORPUSCULAR HEMOGLOBIN 30.9 pg (25-34); MEAN CORPUSCULAR HGB CONC 33.7 g/dl (32-36); MONO % 10.3 %; NEUT % 65.7 %; PLATELET COUNT 127 K/uL (130-400); WHITE BLOOD COUNT 6.14 K/uL (4.8-10.8)
[2017-07-04 15:20] LABS: URINE APPEARANCE CLEAR (CLEAR); URINE BILIRUBIN NEG (NEG); URINE COLOR YELLOW; URINE NITRITE NEG (NEG); URINE PH 5.5 (4.5-7.5); URINE SPECIFIC GRAVITY 1.021 (1.000-1.030); UROBILINOGEN NEG (NEG); ZZUR CULT IF INDIC CLEAN CATCH YES
[2017-07-04 15:22] LABS: MANUAL MICROSCOPIC REQUIRED? NO; REVIEW REQ? NO
[2017-07-04 15:28] LABS: PARTIAL THROMBOPLASTIN RATIO 1.1; PROTHROMBIN TIME (PATIENT) 10.9 SECONDS (9.0-12.0)
[2017-07-04 15:38] LABS: BUN/CREATININE RATIO 21.6 (10-20); CALCIUM 9.9 mg/dl (8.5-10.1); CREATININE 0.94 mg/dl (0.60-1.40); POTASSIUM 3.9 mmol/L (3.5-5.1)
[2017-07-05 07:10] LABS: ESTIMATED AVERAGE GLUCOSE 105 mg/dl; HA1C FLAG Normal (Normal)
[2017-08-06] VITALS (7 sets, daily range): BP systolic 93–134; BP diastolic 46–80; PULSE 45–75; TEMP 36.3–36.7; O2SAT 94–99; Ht 185.4 cm; Wt 97.6 kg
[~2017-08-06] VITALS: Ht 185.4 cm; Wt 97.6 kg
[2017-08-06] MEDS: LACTATED RINGER'S 1000ML 1,000 ML IV SCH ×2 (06:00→22:40)
[~2017-08-06 09:09] MED LIST changes: +ACETAMINOPHEN 500 MG TAB PO SCH; +BUPIVACAINE 0.25% 30 ML VIAL ONE; +BUPIVACAINE 0.5 % 5 MG/1 ML PF 10ML VIAL ONE; +CEFAZOLIN 2000MG IV PUSH 10 ML IV SCH; +DEXAMETHASONE 4 MG TAB PO SCH; +DEXAMETHASONE SOD INJ 4 MG/ML VIAL ONE; +DOXY100C76 PO; +DTR2 PO; +EpINEphrine INJ 1MG/ML AMP 1 MG/ML AMP ONE; +FAMOTIDINE 20 MG TAB PO SCH; +GABAPENTIN 300 MG CAP PO SCH; +LACTATED RINGER'S 1000ML 1,000 ML IV SCH; +LACTATED RINGER'S 1000ML 500 ML IV ONE; +LACTATED RINGER'S 1000ML 500 ML IV SCH; +LACTATED RINGER'S 1000ML IV SCH; -LPR50X PO; -NITR-5 PO; +ROPIVACAINE 5MG/ML 30 ML 150 MG, BUPIVACAINE 0.5% MPF INJ 30 ML, EpINEphrine HCL INJ 0.... INFIL SCH; +TADA5TAB11 PO; +TPRSR/50 PO
--- NOTE | 2017-08-06 09:46 | HISTORY & PHYSICAL EXAMINATION ---
CHIEF COMPLAINT: Chronic right knee pain. HISTORY OF PRESENT ILLNESS: This is a 77-year-old male patient of Dr. Emanuel'jody complaining of chronic right knee pain, longstanding, now progressively getting worse. The patient has failed conservative treatment including intraarticular injections, anti-inflammatories and use of a bracing. The patient has increased pain with weightbearing activities and his pain does interfere with his activities of daily living. PAST MEDICAL HISTORY: Coronary artery disease status post an NE in 2012, hypertension, hypercholesterolemia, COPD, sleep apnea with the use of CPAP, anxiety, spine problems, kyphosis, acid reflux, hiatal hernia, BPH, prostate cancer. SOCIAL HISTORY: Nonsmoker. He drinks about 14 drinks per week. PAST SURGICAL HISTORY: Triple bypass surgery, bladder surgery. REVIEW OF SYSTEMS: The patient complains of chronic right knee pain, otherwise denies any shortness of breath, chest pain, nausea, vomiting or joint complaints. FAMILY HISTORY: Noncontributory. MEDICATIONS: 1. Doxycycline 50 mg every 12 hours. 2. Vytorin 10/10 daily. 3. Aspirin 81 mg daily. 4. Celexa 10 mg daily. 5. Metoprolol 50 mg daily. 6. Hydrochlorothiazide 25 mg daily. 7. Vitamin D3 400 units daily. 8. Nexium 40 mg daily. 9. Cialis 5 mg as needed. 10. Tolterodine 2 mg daily. ALLERGIES: SULFA, LISINOPRIL AND REGLAN. PHYSICAL EXAMINATION: GENERAL: Well-developed, well-nourished 77-year-old male in no acute distress. He is alert and oriented x3 and pleasant. HEENT: Normocephalic, atraumatic. Extraocular motions are intact. Pupils are equal and reactive to light. HEART: Regular rate and rhythm. No murmurs are appreciated. LUNGS: Clear. ABDOMEN: Soft and nontender, bowel sounds are present. EXTREMITIES: Right knee reveals a healing abrasion. He has a varus deformity. He has a limited range of motion of 0-130 degrees. He has a mild effusion with crepitation. He has 5/5 strength. NEUROLOGIC: Neurovascularly, he is intact in his right lower extremity. DIAGNOSES: Right knee end-stage osteoarthritis, coronary artery disease status post an myocardial infarction in 2012, hypertension, hypercholesterolemia, chronic obstructive pulmonary disease, sleep apnea with the use of CPAP, anxiety, spine problems, kyphosis, acid reflux, hiatal hernia, benign prostate hypertrophy, prostate cancer. PLAN: The patient was advised of his diagnosis. Indications, risks, benefits, and postop course have all been reviewed. The patient wishes to proceed with a right total knee arthroplasty. Necessary consent forms, preoperative testing and clearances will be obtained.
--- NOTE | 2017-08-06 10:03 | History & Physical Bridge Note ---
H&P Re-Evaluation Bridge Note: I have examined the patient, reviewed the History & Physical and in the interval since the performance of the History & Physical I have noted the following changes of clinical significance: No changes noted
[2017-08-06] MEDS ORDERED: MIDAZOLAM HCL 1 MG/ML 2ML VIAL ONE (10:24)
[2017-08-06] MEDS ORDERED: FENTANYL CITRATE INJ 50 MCG/1 ML 2 ML VIAL ONE ×2 (10:24→11:38)
[2017-08-06] MEDS ORDERED: LIDOCAINE HCL 2% 2 ML VIAL (20MG/ML) ONE (10:24)
[2017-08-06] MEDS ORDERED: ONDANSETRON INJ 2 MG/ML 2 ML VIAL ONE (10:24)
[2017-08-06] MEDS ORDERED: PROPOFOL IV EMULSION 10 MG/ML 20 ML VIAL IV ONE (10:24)
[2017-08-06] MEDS ORDERED: BACITRACIN 50000 UNIT VIAL ONE (10:36)
[2017-08-06] MEDS ORDERED: ORTHO JOINT ANESTHETIC ONE (10:36)
[2017-08-06] MEDS ORDERED: POVIDONE-IODINE OP SOLN 30 ML BTL ONE (10:36)
[2017-08-06] MEDS ORDERED: ATROPINE SULFATE 0.1 MG/ML 5ML SYR IV PRN (11:30)
[2017-08-06] MEDS ORDERED: FENTANYL CITRATE INJ 50 MCG/1 ML 2 ML VIAL IV PRN (11:30)
[2017-08-06] MEDS ORDERED: ONDANSETRON INJ 2 MG/ML 2 ML VIAL IV PRN ×2 (11:30→13:30)
[2017-08-06] MEDS ORDERED: EpHEDrine SULFATE INJ 50 MG/ML AMP IV PRN (11:30)
--- NOTE | 2017-08-06 13:00 | [facility] Post Operative Brief Note ---
Immediate Operative Summary Operative Date Aug 06, 2017. Pre-Operative Diagnosis Right Knee End-Stage Osteoarthritis Post-Operative Diagnosis same Procedure(s) Performed Right Total Knee Arthroplasty Surgeon Dr. Juanpablo Emanuel [employer] Program Coordinator Surgeon(s) Abdirizak Santillan PA-C Estimated Blood Loss 10mL Findings end stage patellofemoral djd oa with bone loss patella Specimens a. Right Knee Bone and Tissue Drains 2 hemovac Anesthesia spinal adductor block and orhtomix Complication(s) None Disposition Recovery Room / PACU
[2017-08-06] MEDS ORDERED: MAGNESIUM HYDROXIDE SUSP 30 ML UDC PO PRN (13:30)
[2017-08-06] MEDS ORDERED: MoRPHine SULFATE 4 MG/ML 1 ML CARP\\VIAL IV PRN (13:30)
[2017-08-06] MEDS ORDERED: MoRPHine SULFATE 2 MG/ML CARP IV PRN (13:30)
[2017-08-06] MEDS ORDERED: ALUMINUM/MAGNESIUM/SIMETH (MAALOX MAX) 30 ML UDC PO PRN (13:30)
--- NOTE | 2017-08-06 14:04 | DIAGNOSTIC IMAGING REPORT ---
R KNEE 1 OR 2 VIEWS ROUTINE CLINICAL HISTORY: Right knee degenerative joint disease. Arthroplasty. COMPARISON: None FINDINGS: Alignment of the total right knee arthroplasty is anatomic. No fracture or unexpected radiopaque foreign body. Drains are in place. There is extensive vascular calcification with vascular clips possibly from previous bypass. IMPRESSION: Expected findings following total right knee arthroplasty. Electronically signed by: Blake Mayo M.D. 08/06/2017 2:03 PM Dictated Date/Time: 08/06/2017 2:02 PM
--- NOTE | 2017-08-06 14:48 | Anesthesiology Progress Note ---
Anesthesia Post Op Note Date & Time Aug 06, 2017 at 14:48 Vital Signs Pain Intensity: 0.0 Vital Signs Past 12 Hours Date Time Temp Pulse Resp B/P (MAP) Pulse Ox O2 Delivery O2 Flow Rate FiO2 08/06/17 14:30 36.4 16 113/64 (80) 96 Nasal Cannula 2.0 08/06/17 14:00 96 Nasal Cannula 2.0 08/06/17 14:00 96 Nasal Cannula 2.0 08/06/17 14:00 36.6 68 16 127/80 (96) 96 Nasal Cannula 2.0 08/06/17 13:45 36.5 70 16 116/81 97 Nasal Cannula 2 08/06/17 13:35 73 16 124/80 97 Nasal Cannula 2 08/06/17 13:25 80 16 116/74 97 Nasal Cannula 2 08/06/17 13:18 36.0 81 16 128/75 96 Nasal Cannula 2 08/06/17 10:09 36.7 75 18 134/80 99 Room Air Notes Mental Status: alert / awake / arousable, participated in evaluation Pt Amnestic to Procedure: Yes Nausea / Vomiting: adequately controlled Pain: adequately controlled Airway Patency, RR, SpO2: stable & adequate BP & HR: stable & adequate Hydration State: stable & adequate Neuraxial Anesthesia: was administered, sensory block is resolving Anesthetic Complications: no major complications apparent
--- NOTE | 2017-08-06 15:26 | Medical Consult ---
Consultation Date of Consultation: Aug 06, 2017. Attending Physician: Juanpablo Emanuel M.D. Reason for Consultation: Medical Management History of Present Illness 77 y/o M who was admitted earlier today s/p R TKA with Dr. Emanuel. Pt is doing well post-op. He has no knee pain. Denies chest pain or SOB. He has not eaten yet, but has no n/v or other post-anesthesia issues. Pt denies fever, abd pain, c/d, LE pain or swelling. Denies urinary sx. informs me that they recently started following with Dr. Blackwell for cardiology and there was mention of need for xarelto short term while recovering from his surgery. They were not given a script for this and had not started this medication prior. I did speak with Dr. Blackwell and this was apparently a miscommunication. Dr. Blackwell states that he mentioned that the pt may need xarelto for DVT proph short term and that this was not for cardiac reasons. He does prefer the pt remain on his aspirin during the post-op phase. also informs me that pt was seen by urology last week for this abn UA and repeat UA at that time was neg. UA from pre-op screening was felt to be a contaminant. She notes that pt does have hx of several bladder manipulations due to prostate ca hx and they were told he would be more likely to have a UTI due to this. Past Medical/Surgical History HTN CAD s/p [place], bypass in 2012 COPD EILEEN on CPAP Hyperlipidemia Anxiety GERD Hiatal hernia BPH Hx of prostate ca Rosacea--takes doxy Q2d for this Family History Family history was reviewed; no changes noted. Social History Smoking Status: Former Smoker Alcohol Use: occasionally (not daily, but several days a week 1-2 drinks) Drug Use: none Marital Status: Housing Status: lives with significant other Occupation Status: retired Allergies Coded Allergies: Sulfa Antibiotics (Verified Allergy, Unknown, rash, 07/04/17) Lisinopril (Verified Adverse Reaction, Mild, cough, 07/04/17) Metoclopramide (Verified Adverse Reaction, Unknown, Depression, 07/14/17) Current Inpatient Medications Current Inpatient Medications Medications (Trade) Dose Ordered Sig/Mayank Route Start Time Stop Time Status Last Admin Dose Admin Cefazolin Sodium 10 ml @ 2.5 mls/min PREOP IV 08/06/17 06:00 08/06/17 18:00 Acetaminophen (Tylenol Tab) 1,000 mg PREOP PO 08/06/17 06:00 08/06/17 18:00 08/06/17 10:36 1,000 MG Dexamethasone (Decadron Tab) 8 mg PREOP PO 08/06/17 06:00 08/06/17 18:00 08/06/17 10:37 8 MG Famotidine (Pepcid Tab) 20 mg PREOP PO 08/06/17 06:00 08/06/17 18:00 08/06/17 10:36 20 MG Gabapentin (Neurontin Cap) 300 mg PREOP PO 08/06/17 06:00 08/06/17 18:00 08/06/17 10:38 300 MG Lactated Ringer's 1,000 ml @ 15 mls/hr Q24H IV 08/06/17 06:00 08/07/17 05:59 08/06/17 10:39 15 MLS/HR Lactated Ringer's 1,000 ml @ 60 mls/hr [id number] IV 08/06/17 06:00 09/05/17 05:59 Fentanyl Citrate (Fentanyl Inj) 25 mcg Q5M PRN IV 08/06/17 11:30 08/06/17 17:00 Ondansetron HCl (Zofran Inj) 4 mg ONE PRN IV 08/06/17 11:30 08/06/17 17:00 Ephedrine Sulfate (EpHEDrine SULFATE INJ) 5 mg Q5M PRN IV 08/06/17 11:30 08/06/17 17:00 Atropine Sulfate (Atropine Sulfate 0.1MG/Ml Inj) 0.5 mg Q1M PRN IV 08/06/17 11:30 08/06/17 17:00 Citalopram Hydrobromide (celeXA TAB) 10 mg QAM PO 08/07/17 09:00 09/06/17 08:59 Ezetimibe/ Simvastatin (Vytorin 10/40 Tab) 1 tab QPM PO 08/06/17 21:00 09/05/17 20:59 Metoprolol Succinate (Toprol Xl Tab) 50 mg QAM PO 08/07/17 09:00 09/06/17 08:59 Tolterodine Tartrate (Detrol Tab) 2 mg QAM PO 08/07/17 09:00 09/06/17 08:59 Morphine Sulfate (MoRPHine SULFATE INJ) 2 mg Q4HWA PRN IV 08/06/17 13:30 08/20/17 13:29 Morphine Sulfate (MoRPHine SULFATE INJ) 4 mg Q4HWA PRN IV 08/06/17 13:30 08/20/17 13:29 Potassium Chloride/Dextrose/ Sod Cl 1,000 ml @ 100 mls/hr Q10H IV 08/06/17 15:00 08/07/17 14:59 Cefazolin Sodium 2000 mg/Syringe 10 ml @ 2.5 mls/min Q8H IV 08/06/17 20:00 08/07/17 04:03 Ketorolac Tromethamine (Toradol Inj) 15 mg Q6H IV. 08/06/17 16:00 08/07/17 15:59 Oxycodone HCl (Roxicodone Immediate Rel Tab) 1 TABLET FOR PAIN RATING... Q4H PRN PO 08/06/17 13:30 08/20/17 13:29 Acetaminophen (Tylenol Tab) 1,000 mg Q8H PO 08/06/17 22:00 09/05/17 21:59 Magnesium Hydroxide (Milk Of Magnesia Susp) 30 ml Q6H PRN PO 08/06/17 13:30 09/05/17 13:29 Senna (Senokot Tab) 17.2 mg HS PO 08/06/17 21:00 09/05/17 20:59 Docusate Sodium (coLACE CAP) 100 mg BID PO 08/06/17 21:00 09/05/17 20:59 Al Hydrox/Mg Hydrox/Simethicone (Maalox Max Susp) 15 ml Q4H PRN PO 08/06/17 13:30 09/05/17 13:29 Multivitamins (Multivitamin Tab) 1 tab QAM PO 08/07/17 09:00 09/06/17 08:59 Ondansetron HCl (Zofran Inj) 4 mg Q6H PRN IV 08/06/17 13:30 09/05/17 13:29 Ferrous Gluconate (Ferrous Gluconate Tab) 324 mg TIDM PO 08/06/17 17:45 09/05/17 17:44 Tramadol HCl (Ultram Tab) 1 tablet for pain rating... Q4H PRN PO 08/06/17 13:30 09/05/17 13:29 Aspirin (Ecotrin Tab) 81 mg BID PO 08/06/17 21:00 09/05/17 20:59 Ranitidine HCl (zANTac TAB) 150 mg BID PO 08/06/17 21:00 09/05/17 20:59 Review of Systems Pertinent positives and negatives reviewed in HPI--all others negative Physical Exam Date Time Temp Pulse Resp B/P (MAP) Pulse Ox O2 Delivery O2 Flow Rate FiO2 08/06/17 14:30 36.4 16 113/64 (80) 96 Nasal Cannula 2.0 08/06/17 14:00 96 Nasal Cannula 2.0 08/06/17 14:00 96 Nasal Cannula 2.0 08/06/17 14:00 36.6 68 16 127/80 (96) 96 Nasal Cannula 2.0 08/06/17 13:45 36.5 70 16 116/81 97 Nasal Cannula 2 08/06/17 13:35 73 16 124/80 97 Nasal Cannula 2 08/06/17 13:25 80 16 116/74 97 Nasal Cannula 2 08/06/17 13:18 36.0 81 16 128/75 96 Nasal Cannula 2 08/06/17 10:09 36.7 75 18 134/80 99 Room Air General Appearance: WD/WN, no apparent distress Head: normocephalic, atraumatic Eyes: EOMI, sclerae normal Respiratory/Chest: normal breath sounds, no respiratory distress Cardiovascular: regular rate, rhythm, no edema Abdomen/GI: non tender, soft Extremities/Musculoskelatal: no calf tenderness, no pedal edema Neurologic/Psych: alert, normal mood/affect, oriented x 3 Skin: normal color, warm/dry Assessment & Plan 77 y/o M who was admitted 08/06 s/p R TKA with Dr. Emanuel. R TKA: planning for aspirin BID as per ortho CAD: s/p CABG in 2012 after cath perf Takes aspirin 81mg and has continued to do so leading up to OR Should continue UTI: noted on pre-op screening UA and with cx + for klebsiella with MDR, seen by urology and repeat neg, felt original was a contaminant per Given cefazolin post-op, however cx indicates resistance to this and R/I for other cephalosporins, as well as fluoroquinolones, pt with sulfa allergy Pt is asx with this Does take doxy QOD for rosacea at baseline Will repeat UA with cx if indicated, hold on further abx for now given above Discussed UA and cx results, plan with ortho HTN: continue home meds EILEEN: has home CPAP to use COPD: stable Diet and DVT proph as per ortho
[2017-08-06] MEDS: D5W AND 1/2NSS + 20MEQ KCL 1,000 ML IV SCH (16:16)
[2017-08-06] MEDS: KETOROLAC TROMETHAMINE 15 MG/ML VIAL IV. SCH ×2 (16:16→22:23)
--- NOTE | 2017-08-06 19:30 | OPERATIVE REPORT ---
DATE OF OPERATION: 08/06/2017 INDICATION FOR PROCEDURE: The patient is a 77-year-old male who presents with end-stage osteoarthritis of his knees. His right knee is more severe. He has patellofemoral DJD primarily. He does maintain tibiofemoral joint space but does have some arthritis radiographically. He has bone loss in the patella with the lateral facet being dished out with bone loss due to bone on bone wear. PREOPERATIVE DIAGNOSIS: End-stage osteoarthritis, right knee. POSTOPERATIVE DIAGNOSIS: Same. PROCEDURE: Right total knee arthroplasty. SURGEON: Juanpablo Emanuel MD. DENTAL SERVICE CHIEF: BOUBACAR Stevens. ANESTHESIA: Spinal adductor nerve block, Orthomix. OPERATIVE PROCEDURE: The patient was taken to the operating room, anesthetized under anesthesia as dictated. He was placed supine on the operating room table. Pneumatic tourniquet was applied about the right upper thigh. His right lower extremity was prepped and draped in sterile fashion. I examined his knee, demonstrated patellofemoral crepitation in a lateral tracking patella, [id number] crepitation in the patellofemoral joint. No instability. He had good range of motion. He had large effusion. His right lower extremity was prepped and draped with ChloraPrep. His leg was elevated, exsanguinated with Esmarch bandage. Pneumatic tourniquet was raised to 300 mmHg. An anterior incision was made across the right knee. Skin was incised sharply. Subcutaneous flaps were elevated. The medial retinaculum was incised and the incision was extended up in the mid third of the quadriceps tendon and down to the medial tibial tubercle. Intraarticular findings demonstrated he had [id number] in the patellofemoral joint. He had lateral tracking patella. He had bone loss of the lateral facet measured at only 11 mm of bone left there due to the bone loss. The trochlear groove had large bone spurs and exposed bone along the lateral condyle primarily into the central trochlear groove. The tibiofemoral joint had some grade 2-3 osteoarthritis medial and lateral compartments. The cruciate ligaments were still intact. I used the [employer] 2.0 total knee arthroplasty system using [employer] MRI templating templated for 7 femur, 7 tibia. The exposure was performed by excising the infrapatellar fat pad, releasing the lateral synovial bands. The fat pad over the anterior femur for placement of the component but the articular surface in that area was resected. The cruciate ligaments and menisci were resected. He had balanced knee, so we did not have to do any particular release to this. The custom femoral cutting block was pinned in position and the distal femoral cut was made. Then the 5-in-1 cutting block was placed, anterior, posterior and chamfer cuts were made for the 7 femur. The knee was extended and a subperiosteal peel lateral release was performed around the patella. Patella width was measured as dictated. A cut was made such that we did not want to go to an 11 mm, so we cut them at 13 mm and left a little dived in the lateral patella that we could fill in with cement. Then drill holes were made for the patellar component after the oscillating saw was used to make a cut and the excess lateral facet was beveled off to prevent any impingement. Then attention was taken back to the tibia. The tibia was subluxed and the custom tibial cutting block was pinned in position and the proximal tibial cut was made. We used the lamina director summer sessions and assessed ligaments balance which balanced in extension and flexion. Then we re-exposed the tibia, placed the 7 tibial trial externally rotated in line with the tibial tubercle, pinned it in position and used a punch for the stem and then we placed the 7 femoral trial, centered and inserted and then used the notch cutting device. The collet was placed and then we placed a trial reduction with a 9 trial insert which gave balanced ligaments through full range of motion and the patella. The drill holes were made for the 38 patella component and the 38 trial was placed and the knee was taken through full range of motion and the patella tracked centrally. The trials were removed. Then the Orthomix was injected and then the knee was irrigated and then the final components were cemented with Simplex G cement. The final components were the 7 Oxinium posterior stabilized right femur, the 7 primary tibial baseplate, the 5 mm high flex posterior stabilized poly insert and the 38 mm patella. While the cement cured, betanidine soak was used per protocol. Then we went ahead and irrigated this out, placed 2 Hemovac drains out laterally and then closed the quadriceps tendon and medial retinaculum with [id number] #1 Vicryl sutures. Subcutaneous tissues closed with interrupted 2-0 Vicryl sutures, skin closed with leslye. Sterile dressings applied and the patient tolerated the procedure well. BOUBACAR Stevens was my assistant to the president. He functioned as a assistant to the president through the entire procedure. He assisted in patient positioning, prepping, draping, assisted in soft tissue retraction, instrument management and performed the fascial, subcutaneous and skin closures and will participate in the postop care of the patient. I attest to the content of the Intraoperative Record and any orders documented therein. Any exception s are noted below.
[2017-08-06] MEDS: FERROUS GLUCONATE 324 MG TAB PO SCH (19:51)
[2017-08-06] MEDS: DOCUSATE SODIUM 100 MG CAP PO SCH (20:39)
[2017-08-06] MEDS: SENNA 8.6 MG TAB PO SCH (20:39)
[2017-08-06] MEDS: EZETIMIBE/SIMVASTATIN 10/40 TAB PO SCH (20:39)
[2017-08-06] MEDS: ASPIRIN 81 MG ECTAB PO SCH (20:39)
[2017-08-06] MEDS: RANITIDINE HCL 150 MG TAB PO SCH (20:39)
[2017-08-06] MEDS: CEFAZOLIN IV 2,000 MG in SYRINGE 0 ML IV SCH (20:45)
[2017-08-06] MEDS: TRAMADOL HCL 50 MG TAB PO PRN (20:49)
[2017-08-06] MEDS: ACETAMINOPHEN 500 MG TAB PO SCH (22:22)
[2017-08-06 22:37] LABS: MANUAL MICROSCOPIC REQUIRED? YES; URINE APPEARANCE TURBID (CLEAR); URINE BILIRUBIN NEG (NEG); URINE COLOR AMBER; URINE NITRITE NEG (NEG); URINE SPECIFIC GRAVITY 1.025 (1.000-1.030); UROBILINOGEN NEG (NEG)
[2017-08-06 22:43] LABS: REVIEW REQ? NO
[2017-08-06 22:46] LABS: URINE BACTERIA 1+ (NEG); URINE MUCUS PRESENT (NONE PRSENT); URINE RBC 0-4 /hpf (0-4)
[2017-08-06 22:47] LABS: ZZUR CULT IF INDIC CLEAN CATCH YES
[2017-08-07] VITALS (10 sets, daily range): BP systolic 100–119; BP diastolic 48–72; PULSE 59–87; TEMP 36.4–36.7; O2SAT 92–95
[2017-08-07] MEDS: CEFAZOLIN IV 2,000 MG in SYRINGE 0 ML IV SCH (03:10)
[2017-08-07] MEDS: KETOROLAC TROMETHAMINE 15 MG/ML VIAL IV. SCH ×2 (03:11→09:46)
[2017-08-07 05:48] LABS: HEMATOCRIT 30.1 % (42-52); MEAN CELL VOLUME 91.5 fL (80-100); MEAN CORPUSCULAR HEMOGLOBIN 30.7 pg (25-34); MEAN CORPUSCULAR HGB CONC 33.6 g/dl (32-36); RED BLOOD COUNT 3.29 M/uL (4.7-6.1)
[2017-08-07] MEDS: ACETAMINOPHEN 500 MG TAB PO SCH ×3 (06:14→21:15)
[2017-08-07 06:23] LABS: BUN/CREATININE RATIO 20.9 (10-20); CREATININE 1.17 mg/dl (0.60-1.40); POTASSIUM 3.8 mmol/L (3.5-5.1)
[2017-08-07 06:32] LABS: MEAN PLATELET VOLUME 11.2 fL (7.4-10.4); PLATELET COUNT 91 K/uL (130-400)
[2017-08-07] MEDS: FERROUS GLUCONATE 324 MG TAB PO SCH ×3 (08:24→18:10)
[2017-08-07] MEDS: TOLTERODINE TARTRATE 2 MG TAB PO SCH (08:24)
[2017-08-07] MEDS: CITALOPRAM 20 MG TAB PO SCH (08:24)
[2017-08-07] MEDS: MULTIVITAMIN TAB PO SCH (08:25)
[2017-08-07] MEDS: RANITIDINE HCL 150 MG TAB PO SCH ×2 (08:25→20:48)
[2017-08-07] MEDS: ASPIRIN 81 MG ECTAB PO SCH ×2 (08:26→20:48)
[2017-08-07] MEDS: DOCUSATE SODIUM 100 MG CAP PO SCH ×2 (08:26→20:48)
[2017-08-07] MEDS: METOPROLOL SUCC 50MG EXT REL TAB PO SCH (08:29)
--- NOTE | 2017-08-07 10:26 | Orthopedic Progress Note ---
Orthopedic Progress Note Date of Service Aug 07, 2017. Subjective Post OP Day: 1 Reports: feeling well, pain controlled w PO medications, Denies: complaints, chest pain, SOB, nausea / vomiting, light headedness, calf pain Objective calves soft nontender, N/V intact, capillary refill less than 2 sec., dressing C /D/I, A&O x3, toes mobile Date Time Temp Pulse Resp B/P (MAP) Pulse Ox O2 Delivery O2 Flow Rate FiO2 08/07/17 08:28 87 119/67 (84) 08/07/17 07:59 65 113/67 (82) 08/07/17 07:30 36.4 59 18 105/48 (67) 95 Room Air 08/07/17 03:28 36.4 59 16 106/62 (77) 92 Room Air 08/06/17 23:50 CPAP 08/06/17 23:25 36.5 66 16 96/58 (71) 94 Room Air 08/06/17 19:05 36.7 45 16 93/46 (62) 97 Nasal Cannula 2.0 08/06/17 15:30 36.3 67 18 111/69 (83) 97 Nasal Cannula 2.0 08/06/17 15:15 96 Nasal Cannula 2.0 08/06/17 14:30 36.4 16 113/64 (80) 96 Nasal Cannula 2.0 08/06/17 14:00 96 Nasal Cannula 2.0 08/06/17 14:00 96 Nasal Cannula 2.0 08/06/17 14:00 36.6 68 16 127/80 (96) 96 Nasal Cannula 2.0 08/06/17 13:45 36.5 70 16 116/81 97 Nasal Cannula 2 08/06/17 13:35 73 16 124/80 97 Nasal Cannula 2 08/06/17 13:25 80 16 116/74 97 Nasal Cannula 2 08/06/17 13:18 36.0 81 16 128/75 96 Nasal Cannula 2 Laboratory Results 24 Hours: Test 08/07/17 05:25 Hematocrit 30.1 % Hemoglobin 10.1 g/dL Assessment & Plan Assessment: POD #1, Rt TKA Plan: PT/ OT DVT proph- ASA D/C planning- Home w HH per medicine, ? UTI Inhouse Planning Pain Management: Ultram, Morphine, PO Tylenol, Oxy IR DVT Prophylaxis: TEDs, SCDs, ASA Discharge Planning Discharge Planning: home with home health Pain Management: PO Tylenol, Oxy IR DVT Prophylaxis: TEDs, ASA Therapy: Physical Therapy, Occupational Therapy
[2017-08-07] MEDS ORDERED: PHENAZOPYRIDINE HCL 200 MG TAB PO ONE (11:00)
[2017-08-07] MEDS: CEFTRIAXONE SOD INJ 1 GM in DEXTROSE 5% ADD-VANTAGE 50ML 50 ML IV SCH (11:09)
[2017-08-07] MEDS: D5W AND 1/2NSS + 20MEQ KCL 1,000 ML IV SCH ×2 (11:09)
[2017-08-07] MEDS: TRAMADOL HCL 50 MG TAB PO PRN (12:29)
--- NOTE | 2017-08-07 13:30 | Progress Note ---
Subjective Date of Service: Aug 07, 2017. Subjective Pt evaluation today including: conversation w/ patient, physical exam, chart review, lab review, review of studies, review of inpatient medication list Reports frequency and some burning on urination Joint pain controlled with pain medications No other issues reported at this time Problem List Medical Problems: (1) Recurrent fever Status: Acute Review of Systems Constitutional: No fever, No chills, No sweats, No weakness Eyes: No worsening of vision, No eye pain, No redness Respiratory: No cough, No sputum, No wheezing, No shortness of breath Cardiac: No chest pain, No orthopnea, No PND, No edema Abdomen: No pain, No nausea, No vomiting, No diarrhea Musculoskeletal: No joint pain, No muscle pain, No swelling, No calf pain Male : + dysuria, + urinary frequency, No incontinence, No slowing stream Neurologic: No memory loss, No paralysis, No weakness, No numbness/tingling Psychiatric: No depression symptoms, No anhedonism, No anxiety, No insomnia Endo: No fatigue, No excessive thirst, No excessive urination Skin: No rash, No itch Objective Vital Signs Date Time Temp Pulse Resp B/P (MAP) Pulse Ox O2 Delivery O2 Flow Rate FiO2 08/07/17 08:30 95 08/07/17 08:28 87 119/67 (84) 08/07/17 07:59 65 113/67 (82) 08/07/17 07:30 36.4 59 18 105/48 (67) 95 Room Air 08/07/17 03:28 36.4 59 16 106/62 (77) 92 Room Air 08/06/17 23:50 CPAP 08/06/17 23:25 36.5 66 16 96/58 (71) 94 Room Air 08/06/17 19:05 36.7 45 16 93/46 (62) 97 Nasal Cannula 2.0 08/06/17 15:30 36.3 67 18 111/69 (83) 97 Nasal Cannula 2.0 08/06/17 15:15 96 Nasal Cannula 2.0 08/06/17 14:30 36.4 16 113/64 (80) 96 Nasal Cannula 2.0 08/06/17 14:00 96 Nasal Cannula 2.0 08/06/17 14:00 96 Nasal Cannula 2.0 08/06/17 14:00 36.6 68 16 127/80 (96) 96 Nasal Cannula 2.0 08/06/17 13:45 36.5 70 16 116/81 97 Nasal Cannula 2 08/06/17 13:35 73 16 124/80 97 Nasal Cannula 2 Physical Exam General Appearance: WD/WN, + mild distress Eyes: normal inspection, sclerae normal Neck: supple, no adenopathy, thyroid normal, no JVD Respiratory/Chest: chest non-tender, lungs clear, normal breath sounds, no respiratory distress Cardiovascular: regular rate, rhythm, no edema, no gallop, no JVD Abdomen: normal bowel sounds, non tender, soft, no organomegaly Extremities: normal range of motion, non-tender, normal inspection, no pedal edema Neurologic/Psychiatric: no motor/sensory deficits, alert, normal mood/affect, oriented x 3 Skin: normal color, warm/dry, no rash Lymphatic: no adenopathy Laboratory Results Last 24 Hours Test 08/06/17 16:10 08/07/17 05:25 Urine Color IRA Urine Appearance TURBID Urine pH 5.0 Urine Specific [place] 1.025 Urine Protein 1+ Urine Glucose (UA) NEG Urine Ketones TRACE Urine Occult Blood NEG Urine Nitrite NEG Urine Bilirubin NEG Urine Urobilinogen NEG Urine Leukocyte Esterase NEG Urine RBC 0-4 /hpf Urine WBC 5-10 /hpf Urine Epithelial Cells 10-20 /lpf Urine Bacteria 1+ Urine Mucus PRESENT White Blood Count 11.70 K/uL Red Blood Count 3.29 M/uL Hemoglobin 10.1 g/dL Hematocrit 30.1 % Mean Corpuscular Volume 91.5 fL Mean Corpuscular Hemoglobin 30.7 pg Mean Corpuscular Hemoglobin Concent 33.6 g/dl RDW Standard Deviation 42.5 fL RDW Coefficient of Variation 12.8 % Platelet Count 91 K/uL Mean Platelet Volume 11.2 fL Sodium Level 132 mmol/L Potassium Level 3.8 mmol/L Chloride Level 100 mmol/L Carbon Dioxide Level 25 mmol/L Anion Gap 7.0 mmol/L Blood Urea Nitrogen 24 mg/dl Creatinine 1.17 mg/dl Est Creatinine Clear Calc Drug Dose 67.1 ml/min Estimated GFR () 70.3 Estimated GFR (Non- 60.6 BUN/Creatinine Ratio 20.9 Random Glucose 149 mg/dl Calcium Level 8.0 mg/dl Assessment and Plan 77 y/o M who was admitted 08/06 s/p R TKA with Dr. Emanuel. R TKA: planning for aspirin BID as per ortho CAD: s/p CABG in 2012 after cath perf Takes aspirin 81mg and has continued to do so leading up to OR UTI: noted on pre-op screening UA and with cx + for klebsiella with MDR, seen by urology and repeat neg, felt original was a contaminant per Given cefazolin post-op, however cx indicates resistance to this and R/I for other cephalosporins, as well as fluoroquinolones, pt with sulfa allergy Repeat urine cx pending, due to dysuria, will start on rocephin 1 g daily and pyridium Does take doxy QOD for rosacea at baseline HTN: continue home meds EILEEN: has home CPAP to use COPD: stable Diet and DVT proph as per ortho
[2017-08-07] MEDS: OXYCODONE HCL IR 5 MG TAB (IMMEDIATE RELEASE) PO PRN ×2 (14:09→15:06)
--- NOTE | 2017-08-07 19:45 | Progress Note ---
Progress Note Date of Service Aug 07, 2017. Progress Note Pt recovering appropriately from joint surgery - reports he is ambulatory with good ROM - noted to have mild dysuria starting earlier today - culture from yesterday - no growth - preop culture 1 month ago + treated, repeat negative - high #s of epithelial cells on that original UA - uncertain his urinary symptoms are truly infectious in nature, however, given the recent joint replacement, coverage with ceftriaxone seems appropriate - potentially home on 7d of oral abx as a precaution - further w/u as an outpt (pt already has f/u scheduled)
[2017-08-07] MEDS: EZETIMIBE/SIMVASTATIN 10/40 TAB PO SCH (21:15)
[2017-08-07] MEDS: SENNA 8.6 MG TAB PO SCH (21:15)
[2017-08-08] MEDS: ACETAMINOPHEN 500 MG TAB PO SCH (05:39)
[2017-08-08] MEDS: TRAMADOL HCL 50 MG TAB PO PRN (05:39)
[2017-08-08 06:14] VITALS: BP 122/62; PULSE 69; TEMP 36.8; O2SAT 95
[2017-08-08] MEDS: FERROUS GLUCONATE 324 MG TAB PO SCH (07:35)
[2017-08-08] MEDS: METOPROLOL SUCC 50MG EXT REL TAB PO SCH (07:35)
[2017-08-08] MEDS: ASPIRIN 81 MG ECTAB PO SCH (07:35)
[2017-08-08] MEDS: CITALOPRAM 20 MG TAB PO SCH (07:35)
[2017-08-08] MEDS: MULTIVITAMIN TAB PO SCH (07:35)
[2017-08-08] MEDS: TOLTERODINE TARTRATE 2 MG TAB PO SCH (07:35)
[2017-08-08] MEDS: DOCUSATE SODIUM 100 MG CAP PO SCH (07:40)
[2017-08-08] MEDS: RANITIDINE HCL 150 MG TAB PO SCH (07:40)
[2017-08-08 08:00] VITALS: O2SAT 97
[2017-08-08 08:36] LABS: HEMATOCRIT 26.1 % (42-52); MEAN CELL VOLUME 92.6 fL (80-100); MEAN CORPUSCULAR HEMOGLOBIN 30.9 pg (25-34); MEAN CORPUSCULAR HGB CONC 33.3 g/dl (32-36); RED BLOOD COUNT 2.82 M/uL (4.7-6.1); WHITE BLOOD COUNT 7.61 K/uL (4.8-10.8)
[2017-08-08 08:40] LABS: PLATELET COUNT 70 K/uL (130-400)
[2017-08-08 09:02] LABS: BASO % 0.1 %; BASO ABS # 0.01 K/uL (0-0.2); COMPLETE YES; EOS % 0.7 %; GIANT PLATELETS 2+; IG% 0.3 %; LYMPH % 12.2 %; LYMPH ABS # 0.93 K/uL (1.2-3.4); MEAN PLATELET VOLUME 10.3 fL (7.4-10.4); MONO % 9.7 %
[2017-08-08 09:03] LABS: CALCIUM 8.1 mg/dl (8.5-10.1); CREATININE 1.04 mg/dl (0.60-1.40); POTASSIUM 3.4 mmol/L (3.5-5.1)
--- NOTE | 2017-08-08 09:20 | Orthopedic Progress Note ---
Orthopedic Progress Note Date of Service Aug 08, 2017. Subjective Post OP Day: 2 Reports: feeling well, pain controlled w PO medications, Denies: complaints, chest pain, SOB, nausea / vomiting, light headedness, calf pain Objective calves soft nontender, N/V intact, capillary refill less than 2 sec., incision C /D/I, A&O x3, toes mobile ZIPLINE IN TACT Date Time Temp Pulse Resp B/P (MAP) Pulse Ox O2 Delivery O2 Flow Rate FiO2 08/08/17 08:00 97 Room Air 08/08/17 07:55 Room Air 08/08/17 06:14 36.8 69 16 122/62 (82) 95 Room Air 08/07/17 23:01 36.5 84 18 117/62 (80) 94 Room Air 08/07/17 20:02 95 Room Air 08/07/17 19:38 36.7 78 16 102/66 (78) 95 Room Air 08/07/17 19:20 Room Air 08/07/17 15:30 Room Air 08/07/17 15:11 36.6 68 18 100/56 (71) 95 Room Air Laboratory Results 24 Hours: Test 08/08/17 08:08 White Blood Count 7.61 K/uL Red Blood Count 2.82 M/uL Hemoglobin 8.7 g/dL Hematocrit 26.1 % Mean Corpuscular Volume 92.6 fL Mean Corpuscular Hemoglobin 30.9 pg Mean Corpuscular Hemoglobin Concent 33.3 g/dl Platelet Count 70 K/uL Mean Platelet Volume 10.3 fL Neutrophils (%) (Auto) 77.0 % Lymphocytes (%) (Auto) 12.2 % Monocytes (%) (Auto) 9.7 % Eosinophils (%) (Auto) 0.7 % Basophils (%) (Auto) 0.1 % Neutrophils # (Auto) 5.86 K/uL Lymphocytes # (Auto) 0.93 K/uL Monocytes # (Auto) 0.74 K/uL Eosinophils # (Auto) 0.05 K/uL Basophils # (Auto) 0.01 K/uL Assessment & Plan Assessment: POD #2, Rt TKA Plan: PT/ OT DVT proph- ASA D/C planning- Home w HH TODAY per medicine, ? UTI, ADVISED FOR 7 DAYS OF ANTIBX AND F/U OUTPATIENT Inhouse Planning Pain Management: Ultram, Morphine, PO Tylenol, Oxy IR DVT Prophylaxis: TEDs, SCDs, ASA Discharge Planning Discharge Planning: home with home health Pain Management: PO Tylenol, Oxy IR DVT Prophylaxis: TEDs, ASA Therapy: Physical Therapy, Occupational Therapy
[2017-08-08] MEDS ORDERED: ASPEC81 PO (09:29)
[2017-08-08] MEDS ORDERED: CEFA500C2 PO (09:29)
[2017-08-08] MEDS ORDERED: RXC5 PO (09:29)
[2017-08-08] MEDS ORDERED: ACET-24 PO (09:29)
--- NOTE | 2017-08-08 09:32 | Discharge Instructions ---
Discharge Instructions Date of Service Aug 08, 2017. Admission Reason for Admission: Right Knee Degenerative Joint Disease Discharge Discharge Diagnosis / Problem: RIGHT TKA Discharge Goals Goal(s): Improve function Activity Recommendations Activity Limitations: as noted below . Instructions / Follow-Up Instructions / Follow-Up ACTIVITY RECOMMENDATIONS: SELF CARE INSTRUCTIONS AFTER TOTAL KNEE REPLACEMENT A. You may need to continue a physical therapy program after discharge from the hospital. There are several options available to you. Your doctor will assist you in selecting the best one for you. 1. An out-patient facility 2 to 3 times a week for therapy or home therapy. 2. Continue working on all exercises taught to you in the hospital. Your goals should be to increase bending of your knee to 90 degrees and beyond and to fully straighten your knee. B. You may progress at your own pace from walking with a walker or crutches to a cane; then to no assistive devices. C. Make walking a part of your daily routine. Be up as much as comfortable with rest periods throughout the day. Rest with leg elevation is very important. Use the ice wrap frequently for the first 3-4 weeks. D. There are no restrictions on activities. You may ride in a car, shop, participate in records management director and all social activities. E. Wear the long elastic stockings (MY hose) 20 hours a day for 2 weeks after surgery. They can be removed several times a day for laundering and for a bath. F. You may shower, no tub baths until cleared by your doctor. SPECIAL CARE INSTRUCTIONS: VERY IMPORTANT TO READ AND REVIEW A. There are a few signs you need to watch for after you are home. Call [facility] if you notice any of the followin. Increased severe knee pain. Some pain is expected especially when you exercise. 2. Increased swelling in your leg or knee; pain or swelling of the calf muscle in either lower leg. 3. Any fluid drainage from the incision. 4. Shortness of breath or chest pain. B. Please call [facility] at if you have any concerns or questions about your operation or recovery. The doctor or his nurse will return your call promptly. C. You must take antibiotics before dental work, bladder, bowel or other surgery. Your doctor will provide you with a permanent care to carry describing this precaution. IMPORTANT: * REMEMBER TO TAKE ASPIRIN, 81 MG, TWICE DAILY FOR 4 WEEKS UNLESS OTHERWISE DIRECTED. THIS IS YOUR BLOOD THINNER. * HIGH RISK PATIENTS MAY BE PRESCRIBED A STRONGER BLOOD THINNER. THIS WILL BE PROVIDED AT DISCHARGE. * CALL IF INCREASED PAIN, REDNESS, DRAINAGE OR FEVER GREATER THAT 101. * WEAR MY HOSE 20 HOURS PER DAY FOR 2 WEEKS. * YOU MAY HAVE A LARGE BAND-AID LIKE DRESSING (SILVERON). THIS WILL REMAIN ON YOUR INCISION FOR 7 DAYS, THEN CAN BE REMOVED. IF INCISION IS LEAKING THROUGH DRESSING, CALL THE OFFICE . FOLLOW UP VISIT: If appointment is not already scheduled: Please call [facility] to make a follow-up appointment for 2 weeks after your surgery at . ANTIBIOTIC TRANSMITTED TO PHARMACY ON FILE FOR UTI SYMPTOMS, PLEASE FOLLOW A OUTPATIENT WITH UROLOGY. Current Hospital Diet Patient's current hospital diet: Regular Diet Discharge Diet Recommended Diet: Regular Diet Procedures Procedures Performed: Right Total Knee Arthroplasty Pending Studies Studies pending at discharge: no Laboratory Results Hemoglobin A1c Test 07/04/17 14:16 Range/Units Estimated Average Glucose 105 mg/dl Hemoglobin A1c 5.3 4.5-5.6 % Medical Emergencies . Who to Call and When: Medical Emergencies: If at any time you feel your situation is an emergency, please call [phone] immediately. . Non-Emergent Contact Non-Emergency issues call your: Primary Care Provider . "Provider Documentation" section prepared by Nitesh Nunn. . VTE Core Measure Inpt VTE Proph given/why not?: Other Anticoagulation (ASA), T.E.D. Stockings, SCD's [place] Drug Monitoring Program Search Results: patient reviewed within database, no issues identified
[2017-08-08 10:08] VITALS: BP 122/62; PULSE 69; TEMP 36.8; O2SAT 97
[2017-08-08] MEDS: OXYCODONE HCL IR 5 MG TAB (IMMEDIATE RELEASE) PO PRN (10:20)
[2017-08-08] MEDS: CEFTRIAXONE SOD INJ 1 GM in DEXTROSE 5% ADD-VANTAGE 50ML 50 ML IV SCH (11:00)
--- NOTE | 2017-08-08 11:23 | DISCHARGE SUMMARY ---
DISCHARGE DIAGNOSIS: Right knee degenerative joint disease. SECONDARY DIAGNOSES: History of coronary artery disease status [place] in 2013, hypertension, hypercholesterolemia, COPD, sleep apnea with use of CPAP machine, anxiety, GERD, hiatal hernia, BPH, prostate carcinoma in the past, history of DJD of the spine and acute blood loss anemia secondary from surgery. CONSULTS: Dr. Vira Zarate. COMPLICATIONS: None. PROCEDURES: Right total knee arthroplasty performed by Dr. Emanuel on 08/06/2017. BRIEF HISTORY: As dictated in history and physical. HOSPITAL SUMMARY: The patient was admitted on the above-noted date and had the above-noted surgery performed which he tolerated well. On the first postoperative day, he was feeling well, pain was controlled. Calves were soft, nontender, neurovascularly intact. Cap refill was less than 2 seconds. Dressings clean, dry and intact. Toes were mobile. Vital signs were stable, he was afebrile. Hemoglobin was 10.1. He was started on physical therapy protocol and continued on DVT prophylaxis and pain management. By his second postoperative day, he was feeling well and pain was controlled. He had no complaints. Calves were soft, nontender, neurovascularly intact. Cap refill was less than 2 seconds. Incision was clean, dry and intact. Toes were mobile. Zip line was intact. His vital signs are stable. He was afebrile and hemoglobin was 8.7. The patient had a noted increased drainage from his Hemovac which eventually slowed down and by this morning was 50 mL. His drain had been removed and hemoglobin had dropped to 8.7 although the patient was asymptomatic. He was otherwise remaining medically stable and orthopedically stable and was progressing with his physical therapy and it was felt he could be discharged to home. For further review, please see chart. LAB AND X-RAY DATA: As per chart. DISCHARGE INSTRUCTIONS: The patient was discharged to home in satisfactory condition on 08/08/2017. DIET: Regular. ACTIVITY: Follow TK instruction sheets and special care instructions as noted. Follow up with Dr. Emanuel in 2 weeks. The patient to call for appointment if one has not been made for you. DISCHARGE MEDICATIONS: Acetaminophen 1000 mg p.o. q. 8 hours, aspirin 81 mg p.o. b.i.d. for 30 days, Duricef 500 mg p.o. b.i.d. for 7 days for UTI coverage, oxycodone 5-10 mg p.o. q. 4 hours p.r.n. Resume home meds as listed and after 30 days resume once daily dosing of your aspirin. ADDENDUM: The patient was put on Duricef for 7 days due to the fact of having a preoperative UTI that was questionable for being contaminant versus real. The patient was asymptomatic at that time and plans were at this time to treat him with oral antibiotics for 7 days.
[2017-08-08 11:53] VITALS: BP 106/62; PULSE 77; TEMP 36.9; O2SAT 99
--- NOTE | 2017-08-08 13:13 | Progress Note ---
Subjective Date of Service: Aug 08, 2017. Problem List Medical Problems: (1) Recurrent fever Status: Acute Objective Vital Signs Date Time Temp Pulse Resp B/P (MAP) Pulse Ox O2 Delivery O2 Flow Rate FiO2 08/08/17 11:53 36.9 77 16 106/62 (77) 99 Room Air 08/08/17 10:08 36.8 69 16 97 Room Air 08/08/17 08:00 97 Room Air 08/08/17 07:55 Room Air 08/08/17 06:14 36.8 69 16 122/62 (82) 95 Room Air 08/07/17 23:01 36.5 84 18 117/62 (80) 94 Room Air 08/07/17 20:02 95 Room Air 08/07/17 19:38 36.7 78 16 102/66 (78) 95 Room Air 08/07/17 19:20 Room Air 08/07/17 15:30 Room Air 08/07/17 15:11 36.6 68 18 100/56 (71) 95 Room Air Laboratory Results Last 24 Hours Test 08/08/17 08:08 White Blood Count 7.61 K/uL Red Blood Count 2.82 M/uL Hemoglobin 8.7 g/dL Hematocrit 26.1 % Mean Corpuscular Volume 92.6 fL Mean Corpuscular Hemoglobin 30.9 pg Mean Corpuscular Hemoglobin Concent 33.3 g/dl Platelet Count 70 K/uL Mean Platelet Volume 10.3 fL Neutrophils (%) (Auto) 77.0 % Lymphocytes (%) (Auto) 12.2 % Monocytes (%) (Auto) 9.7 % Eosinophils (%) (Auto) 0.7 % Basophils (%) (Auto) 0.1 % Neutrophils # (Auto) 5.86 K/uL Lymphocytes # (Auto) 0.93 K/uL Monocytes # (Auto) 0.74 K/uL Eosinophils # (Auto) 0.05 K/uL Basophils # (Auto) 0.01 K/uL RDW Standard Deviation 44.5 fL RDW Coefficient of Variation 13.3 % Immature Granulocyte % (Auto) 0.3 % Immature Granulocyte # (Auto) 0.02 K/uL Giant Platelets 2+ Sodium Level 139 mmol/L Potassium Level 3.4 mmol/L Chloride Level 105 mmol/L Carbon Dioxide Level 26 mmol/L Anion Gap 8.0 mmol/L Blood Urea Nitrogen 20 mg/dl Creatinine 1.04 mg/dl Est Creatinine Clear Calc Drug Dose 75.5 ml/min Estimated GFR () 81.0 Estimated GFR (Non- 69.9 BUN/Creatinine Ratio 19.0 Random Glucose 120 mg/dl Calcium Level 8.1 mg/dl Assessment and Plan 77 y/o M who was admitted 08/06 s/p R TKA with Dr. Emanuel. R TKA: planning for aspirin BID as per ortho CAD: s/p CABG in 2012 after cath perf Takes aspirin 81mg and has continued to do so leading up to OR UTI: noted on pre-op screening UA and with cx + for klebsiella with MDR, seen by urology and repeat neg, felt original was a contaminant per Given cefazolin post-op, however cx indicates resistance to this and R/I for other cephalosporins, as well as fluoroquinolones, pt with sulfa allergy Repeat urine cx NGTD, due to dysuria, wwas started on rocephin 1 g daily and pyridium DC home on duricef for 7 days HTN: continue home meds EILEEN: has home CPAP to use COPD: stable Diet and DVT proph as per ortho
== END 2017-08-08 12:30 | disposition home health service (06) | DRG 470 ==
LOC: C.ACU 09:09 → C.3E 10:01 → ENRESERV 13:46
PROVIDERS: ADMIT Orthopaedic Surgery Sports Medicine; ATTEND Orthopaedic Surgery Sports Medicine
PROC: 0SRC0J9 Replacement of Right Knee Joint with Synthetic Substitute, Cemented, Open Approach (ICD-10-PCS; principal; 2017-08-06 11:30)
DX: M17.11 Unilateral primary osteoarthritis, right knee (principal); N39.0 Urinary tract infection, site not specified; I25.2 Old myocardial infarction; I10 Essential (primary) hypertension; I25.10 Atherosclerotic heart disease of native coronary artery without angina pectoris; E78.00 Pure hypercholesterolemia, unspecified; J44.9 Chronic obstructive pulmonary disease, unspecified; G47.33 Obstructive sleep apnea (adult) (pediatric); F41.9 Anxiety disorder, unspecified; K21.9 Gastro-esophageal reflux disease without esophagitis; N40.0 Benign prostatic hyperplasia without lower urinary tract symptoms; Z79.82 Long term (current) use of aspirin; Z79.899 Other long term (current) drug therapy; Z88.2 Allergy status to sulfonamides; Z87.891 Personal history of nicotine dependence; Z95.1 Presence of aortocoronary bypass graft

== ENCOUNTER 2017-10-05 14:34 | Inpatient (IN) | payer OTHER ==
[~2017-10-05] VITALS: Ht 185.4 cm; Wt 100.7 kg
[~2017-10-05 14:34] MED LIST changes: +ACET-1256 PO; -ACETAMINOPHEN 500 MG TAB PO SCH; -BUPIVACAINE 0.25% 30 ML VIAL ONE; -BUPIVACAINE 0.5 % 5 MG/1 ML PF 10ML VIAL ONE; -CEFAZOLIN 2000MG IV PUSH 10 ML IV SCH; -DEXAMETHASONE 4 MG TAB PO SCH; -DEXAMETHASONE SOD INJ 4 MG/ML VIAL ONE; -EpINEphrine INJ 1MG/ML AMP 1 MG/ML AMP ONE; -FAMOTIDINE 20 MG TAB PO SCH; -GABAPENTIN 300 MG CAP PO SCH; +KFL500 PO; -LACTATED RINGER'S 1000ML 1,000 ML IV SCH; -LACTATED RINGER'S 1000ML 500 ML IV ONE; -LACTATED RINGER'S 1000ML 500 ML IV SCH; -LACTATED RINGER'S 1000ML IV SCH; -ROPIVACAINE 5MG/ML 30 ML 150 MG, BUPIVACAINE 0.5% MPF INJ 30 ML, EpINEphrine HCL INJ 0.... INFIL SCH
[2017-10-05] MEDS ORDERED: ASPIRIN 81 MG CHEW PO STA (14:58)
[2017-10-05] MEDS ORDERED: SODIUM CHLORIDE 0.9% 1000ML 1,000 ML IV STA (14:58)
--- NOTE | 2017-10-05 14:59 | EMERGENCY ROOM VISIT NOTE ---
History Report prepared by Vesna: Carlos Hayes Under the Supervision of: Dr. Romeo Nick M.D. First contact with patient: 14:51 Chief Complaint: SHORTNESS OF BREATH Stated Complaint: SOB X 3 DAYS, DIZZINESS, BY PASS [id number] History of Present Illness The patient is a 77 year old male who presents to the Emergency Room with complaints of constant weakness and shortness of breath for the past two days. He notes that the dizziness felt similar to when he was admitted in August, but not as strong. In August, the patient reports that he did not have breakfast, lifted hay in his barn, threw the hay and felt dizzy; falling to his knees. He does not feel dizzy right now and did not feel dizzy when waiting prior to admittance into the ED. The patient notes that he takes a Baby Aspirin once a day. He did take his aspirin today. He also reports that he had a total knee replacement done in July 2017. He currently has a heart rate of 35 bpm. The patient reports that he had breakfast and took his medications today. He denies any chest pain. Upon arrival to the Emergency Department the patient' s heart rate was in the mid 30s. Source of History: patient Onset: Two days ago. Position: other (Global. ) Quality: other (Weakness. ) Timing: constant Associated Symptoms: + SOB, + weakness, No chest pain Review of Systems See HPI for pertinent positives & negatives. A total of 10 systems reviewed and were otherwise negative. Past Medical & Surgical Medical Problems: (1) Bradycardia (2) Dysuria (3) Fever (4) Near syncope (5) Prostate cancer (6) Right knee DJD (7) Syncope (8) UTI (urinary tract infection) Family History No pertinent family history Social History Smoking Status: Former Smoker Drug Use: none Marital Status: Housing Status: lives with significant other Occupation Status: retired Current/Historical Medications Scheduled Aspirin (Aspirin Ec), 81 MG PO QAM Cholecalciferol (Vitamin D3), 4,000 UNITS PO DAILY Citalopram Hydrobromide (Celexa), 10 MG PO QAM Doxycycline Monohydrate (Monodox), 100 MG PO Q2D Esomeprazole Magnesium (Nexium), 40 MG PO QPM Ezetimibe/Simvastatin (Vytorin 10-40 mg), 1 TAB PO QPM Hydrochlorothiazide (Hctz), 25 MG PO QAM Metoprolol Succinate (Metoprolol Succinate ER), 50 MG PO QAM Multivitamin (Multivitamin), 1 TAB PO QAM Tadalafil (Cialis), 5 MG PO QAM Tolterodine Tartrate (Detrol), 2 MG PO BID Scheduled PRN Acetaminophen (Tylenol), 1,000 MG PO UD PRN for Pain Allergies Coded Allergies: Oxycodone (Unverified Allergy, Severe, HALLUCINATIONS, 10/05/17) Sulfa Antibiotics (Verified Allergy, Unknown, rash, 10/05/17) Lisinopril (Verified Adverse Reaction, Mild, cough, 10/05/17) Metoclopramide (Verified Adverse Reaction, Unknown, Depression, 10/05/17) Physical Exam Vital Signs Date Time Temp Pulse Resp B/P (MAP) Pulse Ox O2 Delivery O2 Flow Rate FiO2 10/05/17 16:28 39 18 140/66 96 Room Air 10/05/17 15:43 41 18 133/69 94 Room Air 10/05/17 15:13 40 10/05/17 15:10 95 Room Air 10/05/17 14:56 96 Room Air 10/05/17 14:56 96 Room Air 10/05/17 14:41 36.7 35 20 136/63 92 Room Air Physical Exam GENERAL: Patient is a healthy-appearing well-nourished elderly male. HEAD: Normocephalic atraumatic EYES: Ocular movements intact pupils equal and react to light OROPHARYNX mucous membranes are moist no exudates present no erythema or edema present NECK: Supple no nuchal rigidity CHEST: Good equal expansion LUNGS: Clear and equal to auscultation CARDIAC: Normal S1 and S2 ABDOMEN: Soft nontender no guarding BACK: No CVA tenderness EXTREMITIES: No pain upon palpation normal muscle strength in all groups no clubbing cyanosis or edema NEURO: Patient is following commands and answering questions appropriately. Alert and oriented x3 Cranial Nerves 2-12 grossly intact Medical Decision & Procedures ER Provider Diagnostic Interpretation: Radiology results as stated below per my review and radiologist interpretation: CHEST ONE VIEW PORTABLE CLINICAL HISTORY: CHEST PAIN dyspnea COMPARISON STUDY: 09/21/2017 FINDINGS: Moderate stable cardiomegaly. Lungs are considered clear. Trace pleural fluid left lateral costophrenic angle. Both diaphragms are smooth. IMPRESSION: Moderate cardiomegaly. Trace left basilar fluid. The above report was generated using voice recognition software. It may contain grammatical, syntax or spelling errors. Electronically signed by: Nitesh Zazueta M.D. 10/05/2017 3:17 PM Dictated Date/Time: 10/05/2017 3:16 PM Laboratory Results Test 10/05/17 14:55 10/05/17 15:04 Platelet Estimate DECREASED Giant Platelets 1+ Total Creatine Kinase 58 U/L (39-308) Creatine Kinase MB 2.6 ng/ml (0.5-3.6) Creatine Kinase MB Ratio 4.5 (0-3.0) Lipase 141 U/L (73-393) Bedside Hemoglobin 11.6 g/dl (14.0-18.0) Bedside Hematocrit 34 % (42-52) Bedside Sodium 140 mEq/L (135-144) Bedside Potassium 4.2 mEq/L (3.3-5.0) Bedside Chloride 100 mEq/L (101-112) Bedside Total CO2 26 mEq/l (24-31) Bedside Blood Urea Nitrogen 33 mg/dl (7-18) Bedside Creatinine 1.2 mg/dl (0.6-1.3) Bedside Glucose (other) 108 mg/dl (70-99) Bedside Ionized Calcium (Missy) 1.16 mmol/l (1.12-1.32) Labs reviewed by ED physician. Medications Administered Medications (Trade) Dose Ordered Sig/Mayank Route Start Time Stop Time Status Last Admin Dose Admin Sodium Chloride 1,000 ml @ 999 mls/hr Q1H1M STAT IV 10/05/17 14:58 10/05/17 15:58 DC 10/05/17 15:00 999 MLS/HR Aspirin (Aspirin Chew) 324 mg NOW STAT PO 10/05/17 14:58 10/05/17 14:59 DC 10/05/17 15:04 324 MG ECG Indication: weakness Rate (beats per minute): 42 Rhythm: sinus bradycardia Findings: RBBB, other (Old inferior infarct. ) Change: Patient's electrocardiogram per my interpretation. ED Course 1452: Past medical records reviewed. The patient was evaluated in room B01. A complete history and physical examination was performed. 1458: Ordered Aspirin 324 mg PO, Sodium Chloride 1000 ml @ 999 mls/hr. 1607: I discussed the patient's case with Dr. Jocelyne BYERS. He will evaluate the patient for further care and treatment. 1619: I discussed the patient's case with Dr. Cindy BYERS hospitalist. She will evaluate the patient for further care and treatment. Medical Decision Differential diagnosis: Etiologies such as infections, reactive airway disease, pneumonia, pneumothorax , COPD, CHF, cardiac ischemia, pulmonary embolism, musculoskeletal, gastrointestinal, as well as others were entertained. This is a 77-year-old male who presents emergency Department with a second case of dizziness within the past month. Upon arrival to the emergency department the patient was found to have a heart rate of 35. I suspect that this was also the cause of the patient's dizziness one month ago. The patient recently had a medicine change in regards to his bladder. He began using Cialis and I suspect this may be length to his metoprolol to causing the bradycardia. I will note that the patient is hypertensive. He remained however bradycardic after 2 hours in the emergency department. He was given normal saline bolus. Because of the length patient's bradycardia I felt he should be admitted to the hospitalist service. I did discuss him with both cardiology as well as the hospitalist. Patient and are in agreement with the treatment plan. Medication Reconcilliation Current Medication List: was personally reviewed by me Blood Pressure Screening Patient's blood pressure: Elevated blood pressure Referred to Hospitalist Consults Time Called: 1607 Consulting Physician: Dr. Jocelyne BYERS Returned Call: 1606 I discussed the patient's case with Dr. Jocelyne BYERS. He will evaluate the patient for further care and treatment. Additional Consults: Time Called: 1619 Consulted Physician: Dr. Cindy BYERS hospitalist Returned Call: 1622 Additional Comments: I discussed the patient's case with Dr. Cindy BYERS hospitalist. She will evaluate the patient for further care and treatment. Impression Primary Impression: Bradycardia Scribe Attestation The scribe's documentation has been prepared under my direction and personally reviewed by me in its entirety. I confirm that the note above accurately reflects all work, treatment, procedures, and medical decision making performed by me. Departure Information Dispostion Being Evaluated By Hospitalist Referrals Trae Garza (PCP) Patient Instructions [facility]
[2017-10-05 15:17] LABS: ISTAT CREATININE 1.2 mg/dl (0.6-1.3); ISTAT IONIZED CALCIUM 1.16 mmol/l (1.12-1.32); ISTAT POTASSIUM 4.2 mEq/L (3.3-5.0)
--- NOTE | 2017-10-05 15:18 | DIAGNOSTIC IMAGING REPORT ---
CHEST ONE VIEW PORTABLE CLINICAL HISTORY: CHEST PAIN dyspnea COMPARISON STUDY: 09/21/2017 FINDINGS: Moderate stable cardiomegaly. Lungs are considered clear. Trace pleural fluid left lateral costophrenic angle. Both diaphragms are smooth. IMPRESSION: Moderate cardiomegaly. Trace left basilar fluid. The above report was generated using voice recognition software. It may contain grammatical, syntax or spelling errors. Electronically signed by: Nitesh Zazueta M.D. 10/05/2017 3:17 PM Dictated Date/Time: 10/05/2017 3:16 PM
[2017-10-05 15:30] LABS: ALBUMIN 3.6 gm/dl (3.4-5.0); CALCIUM 9.2 mg/dl (8.5-10.1); CREATININE 1.19 mg/dl (0.60-1.40); POTASSIUM 4.1 mmol/L (3.5-5.1)
[2017-10-05 15:35] LABS: CKMB 2.6 ng/ml (0.5-3.6); TOTAL PROTEIN 7.4 gm/dl (6.4-8.2)
--- NOTE | 2017-10-05 17:09 | History and Physical ---
History & Physical Date & Time of Service: Oct 05, 2017 at 16:36 Chief Complaint: Sob X 3 Days, Dizziness, By Pass [id number] Primary Care Physician: Trae Garza History of Present Illness Mr. Sesay is a 77 year old man here for symptomatic bradycardia. He was dizzy and lightheadedness and roberts today. He was here two weeks ago for the same with syncope. He has not had any energy later. He went to the [facility] today and lasted about 3 minutes on the treadmill but felt like he might faint so stopped. TKA He has been on Cialis for 3 months and Detrol for bladder control since his complication from prostatectomy last year. Hx of CABG x3 2012, prostate cancer with prostatectomy in 2016 with complication from migrated clip a year later that lead to sepsis ROS Constitutional: no chills, aches, sweats or fever Respiratory: no cough, sputum, or wheezing Cardiac: no chest pain, palpitations, or edema, GI: no abdominal pain, nausea, vomiting, diarrhea or constipation : no dysuria or hesitancy Extremities: no joint pain or weakness Skin: no rash All other systems reviewed and negative Past Medical/Surgical History PMH: Coronary artery disease PCI to the RCA 2009 Emergent bypass secondary to right coronary perforation 2012 Chronic diastolic CHF-grade 2 diastolic dysfunction on echo in 08/2017 Suspected pulmonary hypertension on echo 08/2017 Mesenteric artery stenosis, incidental Hyperlipidemia Hypertension COPD Obstructive sleep apnea on CPAP Rosacea GERD Overactive bladder and ED Major depressive disorder Hepatic steatosis Splenomegaly Thrombocytopenia PSH: Coronary artery bypass grafting, 2012. 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) Multi-Drug Resistant Organisms History of MDRO: No Allergies Coded Allergies: Oxycodone (Unverified Allergy, Severe, HALLUCINATIONS, 10/05/17) Sulfa Antibiotics (Verified Allergy, Unknown, rash, 10/05/17) Lisinopril (Verified Adverse Reaction, Mild, cough, 10/05/17) Metoclopramide (Verified Adverse Reaction, Unknown, Depression, 10/05/17) Home Medications Scheduled Aspirin (Aspirin Ec), 81 MG PO QAM Cholecalciferol (Vitamin D3), 4,000 UNITS PO DAILY Citalopram Hydrobromide (Celexa), 10 MG PO QAM Doxycycline Monohydrate (Monodox), 100 MG PO Q2D Esomeprazole Magnesium (Nexium), 40 MG PO QPM Ezetimibe/Simvastatin (Vytorin 10-40 mg), 1 TAB PO QPM Hydrochlorothiazide (Hctz), 25 MG PO QAM Metoprolol Succinate (Metoprolol Succinate ER), 50 MG PO QAM Multivitamin (Multivitamin), 1 TAB PO QAM Tadalafil (Cialis), 5 MG PO QAM Tolterodine Tartrate (Detrol), 2 MG PO BID Scheduled PRN Acetaminophen (Tylenol), 1,000 MG PO UD PRN for Pain Physical Exam Vital Signs Date Time Temp Pulse Resp B/P (MAP) Pulse Ox O2 Delivery O2 Flow Rate FiO2 10/05/17 16:28 39 18 140/66 96 Room Air 10/05/17 15:43 41 18 133/69 94 Room Air 10/05/17 15:13 40 10/05/17 15:10 95 Room Air 10/05/17 14:56 96 Room Air 10/05/17 14:56 96 Room Air 10/05/17 14:41 36.7 35 20 136/63 92 Room Air Diagnostics Laboratory Results Results Past 24 Hours Test 10/05/17 14:55 10/05/17 15:04 Range/Units Sodium Level 138 136-145 mmol/L Potassium Level 4.1 3.5-5.1 mmol/L Chloride Level 102 98-107 mmol/L Carbon Dioxide Level 25 21-32 mmol/L Anion Gap 11.0 19.0 16-25 mmol/L Blood Urea Nitrogen 32 7-18 mg/dl Creatinine 1.19 0.60-1.40 mg/dl Est Creatinine Clear Calc Drug Dose 66.4 ml/min Estimated GFR () 68.8 Estimated GFR (Non- 59.4 BUN/Creatinine Ratio 27.2 10-20 Random Glucose 106 70-99 mg/dl Calcium Level 9.2 8.5-10.1 mg/dl Total Bilirubin 0.6 0.2-1 mg/dl Direct Bilirubin 0.2 0-0.2 mg/dl Aspartate Amino Transf (AST/SGOT) 74 15-37 U/L Alanine Aminotransferase (ALT/SGPT) 75 12-78 U/L Alkaline Phosphatase 84 45-117 U/L Total Creatine Kinase 58 39-308 U/L Creatine Kinase MB 2.6 0.5-3.6 ng/ml Creatine Kinase MB Ratio 4.5 0-3.0 Troponin I 0.022 0-0.045 ng/ml Total Protein 7.4 6.4-8.2 gm/dl Albumin 3.6 3.4-5.0 gm/dl Lipase 141 73-393 U/L Bedside Hemoglobin 11.6 14.0-18.0 g/dl Bedside Hematocrit 34 42-52 % Bedside Sodium 140 135-144 mEq/L Bedside Potassium 4.2 3.3-5.0 mEq/L Bedside Chloride 100 101-112 mEq/L Bedside Total CO2 26 24-31 mEq/l Bedside Blood Urea Nitrogen 33 7-18 mg/dl Bedside Creatinine 1.2 0.6-1.3 mg/dl Bedside Glucose (other) 108 70-99 mg/dl Bedside Ionized Calcium (Missy) 1.16 1.12-1.32 mmol/l Impression Assessment and Plan Mr. Sesay is a 77 year old man here for symptomatic bradycardia. 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 Discussed with LA[place] Rivera and agree with findings and plan as documented in the note. Any exceptions or clarifications are listed here: Patient is a 77-year-old male with a history of CAD S/P 3vCABG, chronic diastolic CHF, suspected pulmonary hypertension, COPD, hypertension, dyslipidemia, depression, GERD, history of prostate cancer, EILEEN on CPAP, rosacea , mesenteric artery stenosis, hepatic steatosis, splenomegaly, anemia and thrombocytopenia, and GERD, who presents with lightheadedness and lethargy, with dyspnea on exertion. In the ER, he was initially given 1 L of IV fluids, and found to have a heart rate in the 30s with sinus bradycardia noted on his ECG. He was admitted several weeks ago with the same presentation although at that point he had episodes of syncope as well. I came to see him a few hours after admission, he was reporting orthopnea and shortness of breath that was increased from previous. Vitals reviewed Gen: AAOx3, NAD, mildly anxious HEENT: anicteric sclerae, EOMI CV: Bradycardic, 1 out of 6 diastolic murmur heard at the right upper sternal border, nl S1S2 Pulm: Positive bibasilar crackles Abd: +BS soft NT ND no masses or hernias Ext: Trace edema in the legs bilaterally, 2+ DP pulses Skin: no rashes, warm/dry Neuro: full strength throughout Labs reviewed, ECG reviewed, chest x-ray images personally reviewed by me and shows some fluid in the fissure and blunting left costophrenic angle with cardiomegaly Patient is a 77-year-old male with a history of CAD S/P 3vCABG, chronic diastolic CHF, suspected pulmonary hypertension, COPD, hypertension, dyslipidemia, depression, GERD, history of prostate cancer, EILEEN on CPAP, rosacea , mesenteric artery stenosis, hepatic steatosis, splenomegaly, anemia and thrombocytopenia, and GERD, who presents with symptomatic bradycardia. He does have a history of severe CAD and a new RBBB on last admission-he could have conduction disease contributing to his bradycardia -Admit to telemetry and monitor for heart block -Hold metoprolol -I looked up all adverse reactions to both Cialis and Detrol-there is no paradoxical bradycardia with Cialis listed as there can be with a vasodilator such as nitroglycerin. No bradycardia is listed as reaction to Detrol, however agreed to hold both for now -Consult cardiology for further input -Check Lyme titer -He did receive 1 L of IV fluids in the ER and is now having orthopnea and increased shortness of breath-we will give Lasix 20 mg IV 1 now -Trend the troponin to make sure he did not have ACS contributing to his new onset bradycardia, the first troponin is negative -He does have chronic normocytic anemia and thrombocytopenia that worsens during hospitalizations likely due to infections or stress from surgery-he has fatty liver and splenomegaly on a CT scan of the abdomen and pelvis from last year-the splenomegaly is likely contributing to the thrombocytopenia -For the anemia and thrombocytopenia, check B12 as well as folate and iron studies -He should be counseled on cessation of all alcohol intake and have surveillance of his fatty liver -Continue on CPAP at nighttime here for his EILEEN -Add on heparin SQ for DVT prophylaxis Documented By: Juana Campos
[2017-10-05 17:24] LABS: HEMATOCRIT 34.9 % (42-52); HEMOGLOBIN 11.2 g/dL (14.0-18.0); MEAN CELL VOLUME 91.4 fL (80-100); MEAN CORPUSCULAR HEMOGLOBIN 29.3 pg (25-34); MEAN CORPUSCULAR HGB CONC 32.1 g/dl (32-36); RED CELL DISTRIBUTION WIDTH CV 14.3 % (11.5-14.5); WHITE BLOOD COUNT 5.72 K/uL (4.8-10.8)
[2017-10-05 17:34] LABS: BASO % 0.3 %; BASO ABS # 0.02 K/uL (0-0.2); EOS % 2.3 %; EOS ABS # 0.13 K/uL (0-0.5); IG# 0.01 K/uL (0.00-0.02); LYMPH ABS # 0.86 K/uL (1.2-3.4); MEAN PLATELET VOLUME 12.2 fL (7.4-10.4); MONO % 9.3 %; MONO ABS # 0.53 K/uL (0.11-0.59); NEUT % 72.9 %; NEUT ABS # 4.17 K/uL (1.4-6.5); PLATELET COUNT 106 K/uL (130-400)
[2017-10-05 18:29] VITALS: BP 160/65; PULSE 44; TEMP 36.6; O2SAT 96; Ht 185.4 cm; Wt 100.7 kg
[2017-10-05] MEDS ORDERED: DOXYCYCLINE HYCLATE 100 MG CAP PO SCH (19:30)
[2017-10-05 19:35] VITALS: BP 125/70; PULSE 41; TEMP 36.6; O2SAT 94
[2017-10-05 20:00] VITALS: O2SAT 94
[2017-10-05] MEDS: PANTOprazole SOD 40 MG TAB PO SCH (20:30)
[2017-10-05] MEDS: EZETIMIBE/SIMVASTATIN 10/40 TAB PO SCH (20:30)
[2017-10-05] MEDS ORDERED: NURSING VERBAL MED ORDER ONE (21:15)
[2017-10-05] MEDS ORDERED: ACETAMINOPHEN 500 MG TAB PO PRN (21:30)
[2017-10-05] MEDS ORDERED: FUROSEMIDE INJ 20 MG in SYRINGE 0 ML IV ONE (23:15)
[2017-10-05 23:42] VITALS: PULSE 40; O2SAT 94
[2017-10-06] VITALS (11 sets, daily range): BP systolic 108–175; BP diastolic 57–84; PULSE 41–78; TEMP 36.5–37.1; O2SAT 91–96
[2017-10-06 04:01] LABS: HEMATOCRIT 33.1 % (42-52); HEMOGLOBIN 10.9 g/dL (14.0-18.0); MEAN CELL VOLUME 89.5 fL (80-100); MEAN CORPUSCULAR HEMOGLOBIN 29.5 pg (25-34); RED CELL DISTRIBUTION WIDTH CV 14.3 % (11.5-14.5); RED CELL DISTRIBUTION WIDTH SD 46.8 fL (36.4-46.3); WHITE BLOOD COUNT 6.08 K/uL (4.8-10.8)
[2017-10-06 04:09] LABS: INR 1.1 (0.9-1.1)
[2017-10-06 04:21] LABS: MEAN CORPUSCULAR HGB CONC 32.9 g/dl (32-36); MEAN PLATELET VOLUME 11.3 fL (7.4-10.4); PLATELET COUNT 89 K/uL (130-400)
[2017-10-06 04:23] LABS: BASO % 0.5 %; BASO ABS # 0.03 K/uL (0-0.2); EOS % 2.5 %; EOS ABS # 0.15 K/uL (0-0.5); IG# 0.02 K/uL (0.00-0.02); LYMPH % 19.4 %; LYMPH ABS # 1.18 K/uL (1.2-3.4); MONO % 7.9 %; MONO ABS # 0.48 K/uL (0.11-0.59); NEUT % 69.4 %; NEUT ABS # 4.22 K/uL (1.4-6.5)
[2017-10-06 04:33] LABS: ALBUMIN 3.7 gm/dl (3.4-5.0); CALCIUM 9.2 mg/dl (8.5-10.1); CREATININE 1.18 mg/dl (0.60-1.40); POTASSIUM 3.5 mmol/L (3.5-5.1)
[2017-10-06] MEDS ORDERED: POTASSIUM CHLORIDE 20 MEQ TABCR PO STA (04:38)
[2017-10-06] MEDS: MAGNESIUM SULFATE 1GM / D5W 1 GM in PREMIXED IN D5W 100 ML IV SCH ×2 (04:52→05:55)
[2017-10-06] MEDS: HEPARIN SOD 5000 UNIT/0.5 ML CARP SQ SCH ×3 (06:10→21:33)
[2017-10-06] MEDS: CHOLECALCIFEROL 1000 INTER.UNIT TAB PO SCH (07:57)
[2017-10-06] MEDS: MULTIVITAMIN TAB PO SCH (07:57)
[2017-10-06] MEDS: ASPIRIN 81 MG ECTAB PO SCH (07:57)
[2017-10-06] MEDS: HYDROCHLOROTHIAZIDE 25 MG TAB PO SCH (07:57)
[2017-10-06] MEDS ORDERED: MAGNESIUM SULFATE 1GM / D5W 1 GM in PREMIXED IN D5W 100 ML IV ONE (09:00)
--- NOTE | 2017-10-06 10:06 | Hospitalist Progress Note ---
Hospitalist Progress Note Date of Service Oct 06, 2017. (Alina Rivera CRNP) Subjective Pt evaluation today including: conversation w/ patient, physical exam, chart review, review of inpatient medication list Voiding: no voiding problems Mr. Sesay continues to feel somewhat sob this morning and is requiring 2L NC. He otherwise denies complaints. 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 Currently he appears to be in a Mobitz II, heart rate 30s and 40s, bps stable ROS Constitutional: no chills, aches, sweats or fever Respiratory: no cough, sputum, or wheezing Cardiac: no chest pain, palpitations, edema, orthopnea or lightheadedness GI: no abdominal pain, nausea, vomiting, diarrhea or constipation : no dysuria or hesitancy Extremities: no joint pain or weakness Skin: no rash All other systems reviewed and negative (Alina Rivera CRNP) Medications Medications Administered Medications (Trade) Dose Ordered Sig/Mayank Route Start Time Stop Time Status Last Admin Dose Admin Sodium Chloride 1,000 ml @ 999 mls/hr Q1H1M STAT IV 10/05/17 14:58 10/05/17 15:58 DC 10/05/17 15:00 999 MLS/HR Aspirin (Aspirin Chew) 324 mg NOW STAT PO 10/05/17 14:58 10/05/17 14:59 DC 10/05/17 15:04 324 MG Aspirin (Ecotrin Tab) 81 mg QAM PO 10/06/17 09:00 11/05/17 08:59 10/06/17 07:57 81 MG Doxycycline Hyclate (Vibramycin Cap) 100 mg Q2D PO 10/05/17 19:30 10/15/17 19:29 10/05/17 20:30 100 MG Ezetimibe/ Simvastatin (Vytorin 10/40 Tab) 1 tab QPM PO 10/05/17 21:00 11/04/17 20:59 10/05/17 20:30 1 TAB Hydrochlorothiazide (Hydrochlorothiazide Tab) 25 mg QAM PO 10/06/17 09:00 11/05/17 08:59 10/06/17 07:57 25 MG Multivitamins (Multivitamin Tab) 1 tab QAM PO 10/06/17 09:00 11/05/17 08:59 10/06/17 07:57 1 TAB Cholecalciferol (Vitamin D Tab) 4,000 inter.unit DAILY PO 10/06/17 09:00 11/05/17 08:59 10/06/17 07:57 4,000 INTER.UNIT Pantoprazole Sodium (Protonix Tab) 40 mg QPM PO 10/05/17 21:00 11/04/17 20:59 10/05/17 20:30 40 MG Furosemide 20 mg/ Syringe 2 ml @ 4 mls/min ONE ONCE IV 10/05/17 23:15 10/05/17 23:16 DC 10/05/17 23:29 4 MLS/MIN Heparin Sodium (Porcine) (Heparin Sq 5000 Unit/0.5ml) 5,000 unit Q8 SQ 10/06/17 06:00 11/05/17 05:59 10/06/17 06:10 5,000 UNIT Magnesium Sulfate 1 gm/Prmx 100 ml @ 100 mls/hr Q1H IV 10/06/17 04:41 10/06/17 06:40 DC 10/06/17 05:55 100 MLS/HR Potassium Chloride (Klor-Con Tab) 40 meq NOW STAT PO 10/06/17 04:38 10/06/17 04:43 DC 10/06/17 04:52 40 MEQ (Alina Rivera, [place]) Objective Vital Signs Date Time Temp Pulse Resp B/P (MAP) Pulse Ox O2 Delivery O2 Flow Rate FiO2 10/06/17 08:03 36.9 42 16 155/71 (99) 93 Nasal Cannula 2.0 10/06/17 08:00 93 Nasal Cannula 2.0 10/06/17 04:02 37.1 43 20 148/57 (87) 93 CPAP 2.0 10/06/17 00:09 36.5 44 20 168/76 (106) 93 CPAP 10/06/17 00:00 CPAP 10/05/17 23:42 40 94 21 10/05/17 20:00 94 Room Air CPAP 10/05/17 19:35 36.6 41 22 125/70 (88) 94 Room Air 10/05/17 18:29 36.6 44 18 160/65 96 Room Air 10/05/17 17:42 36.7 34 18 140/69 95 10/05/17 17:31 34 18 140/69 95 Room Air 10/05/17 16:28 39 18 140/66 96 Room Air 10/05/17 15:43 41 18 133/69 94 Room Air 10/05/17 15:13 40 10/05/17 15:10 95 Room Air 10/05/17 14:56 96 Room Air 10/05/17 14:56 96 Room Air 10/05/17 14:41 36.7 35 20 136/63 92 Room Air (Alina Rivera CRNP) Physical Exam Notes: General: no distress Eyes: normal inspection, PERLL Respiratory: chest non tender, clear to auscultation, normal breath sounds, no respiratory distress, no accessory muscle use Cardiac: regular rate and rhythm, no rub or gallop, no murmur, no edema, no jvd GI/: active bowel sounds, no abd pain or tenderness, soft, non distended Extremities: normal range of motion, normal strength, non tender Neuro/Psych: alert and oriented x 3, normal mood and affect Skin: normal color, dry (Alina Rivera CRNP) Laboratory Results Last 24 Hours Test 10/05/17 14:55 10/05/17 15:04 10/05/17 23:07 10/06/17 03:42 White Blood Count 5.72 K/uL 6.08 K/uL Red Blood Count 3.82 M/uL 3.70 M/uL Hemoglobin 11.2 g/dL 10.9 g/dL Hematocrit 34.9 % 33.1 % Mean Corpuscular Volume 91.4 fL 89.5 fL Mean Corpuscular Hemoglobin 29.3 pg 29.5 pg Mean Corpuscular Hemoglobin Concent 32.1 g/dl 32.9 g/dl Platelet Count 106 K/uL 89 K/uL Mean Platelet Volume 12.2 fL 11.3 fL Neutrophils (%) (Auto) 72.9 % 69.4 % Lymphocytes (%) (Auto) 15.0 % 19.4 % Monocytes (%) (Auto) 9.3 % 7.9 % Eosinophils (%) (Auto) 2.3 % 2.5 % Basophils (%) (Auto) 0.3 % 0.5 % Neutrophils # (Auto) 4.17 K/uL 4.22 K/uL Lymphocytes # (Auto) 0.86 K/uL 1.18 K/uL Monocytes # (Auto) 0.53 K/uL 0.48 K/uL Eosinophils # (Auto) 0.13 K/uL 0.15 K/uL Basophils # (Auto) 0.02 K/uL 0.03 K/uL RDW Standard Deviation 47.0 fL 46.8 fL RDW Coefficient of Variation 14.3 % 14.3 % Immature Granulocyte % (Auto) 0.2 % 0.3 % Immature Granulocyte # (Auto) 0.01 K/uL 0.02 K/uL Platelet Estimate DECREASED Giant Platelets 1+ Sodium Level 138 mmol/L 137 mmol/L Potassium Level 4.1 mmol/L 3.5 mmol/L Chloride Level 102 mmol/L 104 mmol/L Carbon Dioxide Level 25 mmol/L 23 mmol/L Anion Gap 11.0 mmol/L 19.0 mmol/L 10.0 mmol/L Blood Urea Nitrogen 32 mg/dl 31 mg/dl Creatinine 1.19 mg/dl 1.18 mg/dl Est Creatinine Clear Calc Drug Dose 66.4 ml/min 67.6 ml/min Estimated GFR () 68.8 69.5 Estimated GFR (Non- 59.4 60.0 BUN/Creatinine Ratio 27.2 26.1 Random Glucose 106 mg/dl 106 mg/dl Calcium Level 9.2 mg/dl 9.2 mg/dl Total Bilirubin 0.6 mg/dl 0.8 mg/dl Direct Bilirubin 0.2 mg/dl 0.2 mg/dl Aspartate Amino Transf (AST/SGOT) 74 U/L 43 U/L Alanine Aminotransferase (ALT/SGPT) 75 U/L 61 U/L Alkaline Phosphatase 84 U/L 70 U/L Total Creatine Kinase 58 U/L Creatine Kinase MB 2.6 ng/ml Creatine Kinase MB Ratio 4.5 Troponin I 0.022 ng/ml 0.037 ng/ml 0.045 ng/ml Total Protein 7.4 gm/dl 7.0 gm/dl Albumin 3.6 gm/dl 3.7 gm/dl Lipase 141 U/L Bedside Hemoglobin 11.6 g/dl Bedside Hematocrit 34 % Bedside Sodium 140 mEq/L Bedside Potassium 4.2 mEq/L Bedside Chloride 100 mEq/L Bedside Total CO2 26 mEq/l Bedside Blood Urea Nitrogen 33 mg/dl Bedside Creatinine 1.2 mg/dl Bedside Glucose (other) 108 mg/dl Bedside Ionized Calcium (Missy) 1.16 mmol/l Prothrombin Time 11.2 SECONDS Prothromb Time International Ratio 1.1 Magnesium Level 1.7 mg/dl Iron Level 44 mcg/dl Total Iron Binding Capacity 399 mcg/dl Transferrin 305 mg/dl Transferrin % Saturation 10 % Ferritin 79.2 ng/ml Vitamin B12 Level 536 pg/mL Folate 9.82 ng/mL Lyme Disease IgG Antibody NEG Lyme Disease IgM Antibody NEG (Alina Rivera CRNP) Assessment and Plan Mr. Sesay is a 77 year old man here for symptomatic bradycardia. Symptomatic bradycardia,vtach/torsades overnight - consult cardiology - continue to hold Cialis, Detrol, and metoprolol - troponins negative - no events since about 0, patient was asymptomatic during torsades/vtach - mag 1.7 this am - replaced Hx CAD/HLD/Diastolic CHF - appeared somewhat overloaded over the night - continues to have decreased pulse ox, on 2L - repeat chest xray - may need further diuresis though he does not sound particularly overloaded to auscultation - Echo pending - continue ASA, statin - hold metoprolol as above Hx prostate CA/incontinence - hold medications as above until seen by cardiology Rosacea - continue q2d doxycycline ETOH abuse - drinks two mixed drinks per night, AST elevated on admission, fatty liver on imaging - monitor for withdrawal symptoms - folate, thiamine supplements - will need alcohol cessation counseling before discharge. Full code SCDs (Alina Rivera CRNP) OYSTER CULTIVATOR Physician Supervision Note: I interviewed and examined the patient. Discussed with Alina Rivera OYSTER CULTIVATOR and agree with findings and plan as documented in the note. 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 is taken for pacemaker implantation on 10/06 he's been doing well since that time although he did a history of chronic diastolic heart failure he has had no episodes of failure here vital signs are reviewed and are stable exception of bradycardia he is maintaining a good blood pressure Preprocedure his heart was regular but slow lungs are clear without wheezes or crackles abdomen was normoactive bowel sounds and soft Somatic bradycardia in a patient with a history of coronary disease and diastolic heart failure doing well status post permanent pacemaker evaluation he 'll likely a reevaluation 10/07 and if stable will be released Documented By: Hemant Lombardi (Hemant Lombardi M.D.)
--- NOTE | 2017-10-06 11:23 | Cardiology Consultation ---
Cardiology Consultation Date of Consultation: Oct 06, 2017. Requesting Physician: Carissa Rivera Reason for Consultation: Symptomatic AV block Pt evaluation today including: conversation w/ patient, conversation w/ family , physical exam, lab review, review of studies, review of inpatient medication list, conversation w/ attending History of Present Illness This is a very pleasant 77-year-old gentleman who has a history of coronary artery disease and other vascular disease. He had a PCI to the right coronary artery in 2009, and then in 2012 had a right coronary artery perforation where he required emergency bypass surgery where he had a ROBERTO to the LAD, saphenous vein graft to the posterior lateral branch, saphenous vein graft to ramus intermedius. This was performed at [facility] and he has been symptomatically stable since. He has also had mesenteric artery stenosis. He has hypertension and hyperlipidemia as well as COPD and obstructive sleep apnea. He presented with an episode of syncope generator 2017, but no arrhythmia was identified and the cause was not clear. He then has had further presyncopal episodes (and possibly has had other episodes of syncope, and minimizes his symptoms according to his who is present today). In general he has been feeling poorly for about a month with intermittent difficulty with exertion and lightheadedness. He felt quite dizzy and lightheaded on 10/05/2017, he presented to the emergency room and was bradycardic at around 40 bpm which appeared to be 2 to one AV block. He also has a right bundle branch block pattern. He was admitted, placed on telemetry. He has continued to feel somewhat weak, and his heart rate has remained low. A Lyme titer was negative. At the time of my evaluation he is feeling relatively well but felt a little short of breath during the night, now this morning he felt better. He was not having lightheadedness or dizziness but is in bed bed. Past Medical/Surgical History (1) Syncope (2) Near syncope (3) Right knee DJD Coronary artery disease Coronary bypass surgery Hypertension Hyperlipidemia Family History No pertinent family history Social History Smoking Status: Former Smoker History of Alcohol Use: Yes (1-3 drinks per day) Review of Systems Constitutional: No fever, No weight loss, No weakness Respiratory: No cough, No wheezing, No shortness of breath, No dyspnea on exertion Cardiac: + see HPI, + problem reported (presyncope and syncope), No chest pain , No orthopnea, No PND, No edema, No palpitations Abdomen: No pain, No nausea, No vomiting, No diarrhea, No GI bleeding Male : No urinary frequency, No nocturia more than once/night, No slowing stream, No sexual dysfunction Neurologic: No paralysis, No weakness, No numbness/tingling, No balance problems Heme: No abnormal bleeding/bruising, No clotting problems Endo: No fatigue Skin: No problem reported All Other Systems: Reviewed and Negative Allergies Coded Allergies: Oxycodone (Unverified Allergy, Severe, HALLUCINATIONS, 10/05/17) Sulfa Antibiotics (Verified Allergy, Unknown, rash, 10/05/17) Lisinopril (Verified Adverse Reaction, Mild, cough, 10/05/17) Metoclopramide (Verified Adverse Reaction, Unknown, Depression, 10/05/17) Medications Current Inpatient Medications Medications (Trade) Dose Ordered Sig/Mayank Route Start Time Stop Time Status Last Admin Dose Admin Aspirin (Ecotrin Tab) 81 mg QAM PO 10/06/17 09:00 11/05/17 08:59 10/06/17 07:57 81 MG Doxycycline Hyclate (Vibramycin Cap) 100 mg Q2D PO 10/05/17 19:30 10/15/17 19:29 10/05/17 20:30 100 MG Ezetimibe/ Simvastatin (Vytorin 10/40 Tab) 1 tab QPM PO 10/05/17 21:00 11/04/17 20:59 10/05/17 20:30 1 TAB Hydrochlorothiazide (Hydrochlorothiazide Tab) 25 mg QAM PO 10/06/17 09:00 11/05/17 08:59 10/06/17 07:57 25 MG Multivitamins (Multivitamin Tab) 1 tab QAM PO 10/06/17 09:00 11/05/17 08:59 10/06/17 07:57 1 TAB Cholecalciferol (Vitamin D Tab) 4,000 inter.unit DAILY PO 10/06/17 09:00 11/05/17 08:59 10/06/17 07:57 4,000 INTER.UNIT Pantoprazole Sodium (Protonix Tab) 40 mg QPM PO 10/05/17 21:00 11/04/17 20:59 10/05/17 20:30 40 MG Acetaminophen (Tylenol Tab) 1,000 mg Q8H PRN PO 10/05/17 21:30 11/04/17 21:29 Heparin Sodium (Porcine) (Heparin Sq 5000 Unit/0.5ml) 5,000 unit Q8 SQ 10/06/17 06:00 11/05/17 05:59 10/06/17 06:10 5,000 UNIT Folic Acid (Folvite Tab) 1 mg QAM PO 10/07/17 09:00 11/06/17 08:59 Thiamine HCl (Vitamin B-1 Tab) 100 mg QAM PO 10/07/17 09:00 11/06/17 08:59 Physical Exam Vital Signs Past 12 Hours Date Time Temp Pulse Resp B/P (MAP) Pulse Ox O2 Delivery O2 Flow Rate FiO2 10/06/17 08:03 36.9 42 16 155/71 (99) 93 Nasal Cannula 2.0 10/06/17 08:00 93 Nasal Cannula 2.0 10/06/17 04:02 37.1 43 20 148/57 (87) 93 CPAP 2.0 10/06/17 00:09 36.5 44 20 168/76 (106) 93 CPAP 10/06/17 00:00 CPAP 10/05/17 23:42 40 94 21 Constitutional: General Apperance: heathly-appearing Level of Distress: NAD Psychiatric: Mental Status: active & alert Head: normocephalic Eyes: EOM: EOMI ENMT: normal ENT inspection, hearing grossly normal Neck: supple, no masses Lungs: Respiratory effort: no dyspnea, good air movement Auscultation: breath sounds normal, no wheezing Cardiovascular: Heart Auscultation: RRR, no murmurs, no rubs, no gallops, bradycardia Peripheral Pulses: Bruits: none appreciated Abdomen: Bowel Sounds: normal Inspection & Palpation: soft, no tenderness, guarding & rebound, no masses Musculoskeletal: normal strength (5/5 throughout) Extremities: no edema Neurologic: Cranial Nerves: grossly intact Sensation: grossly intact Data Laboratory Results: Last 24 Hours Test 10/05/17 14:55 10/05/17 15:04 10/05/17 23:07 10/06/17 03:42 White Blood Count 5.72 K/uL 6.08 K/uL Red Blood Count 3.82 M/uL 3.70 M/uL Hemoglobin 11.2 g/dL 10.9 g/dL Hematocrit 34.9 % 33.1 % Mean Corpuscular Volume 91.4 fL 89.5 fL Mean Corpuscular Hemoglobin 29.3 pg 29.5 pg Mean Corpuscular Hemoglobin Concent 32.1 g/dl 32.9 g/dl Platelet Count 106 K/uL 89 K/uL Mean Platelet Volume 12.2 fL 11.3 fL Neutrophils (%) (Auto) 72.9 % 69.4 % Lymphocytes (%) (Auto) 15.0 % 19.4 % Monocytes (%) (Auto) 9.3 % 7.9 % Eosinophils (%) (Auto) 2.3 % 2.5 % Basophils (%) (Auto) 0.3 % 0.5 % Neutrophils # (Auto) 4.17 K/uL 4.22 K/uL Lymphocytes # (Auto) 0.86 K/uL 1.18 K/uL Monocytes # (Auto) 0.53 K/uL 0.48 K/uL Eosinophils # (Auto) 0.13 K/uL 0.15 K/uL Basophils # (Auto) 0.02 K/uL 0.03 K/uL RDW Standard Deviation 47.0 fL 46.8 fL RDW Coefficient of Variation 14.3 % 14.3 % Immature Granulocyte % (Auto) 0.2 % 0.3 % Immature Granulocyte # (Auto) 0.01 K/uL 0.02 K/uL Platelet Estimate DECREASED Giant Platelets 1+ Sodium Level 138 mmol/L 137 mmol/L Potassium Level 4.1 mmol/L 3.5 mmol/L Chloride Level 102 mmol/L 104 mmol/L Carbon Dioxide Level 25 mmol/L 23 mmol/L Anion Gap 11.0 mmol/L 19.0 mmol/L 10.0 mmol/L Blood Urea Nitrogen 32 mg/dl 31 mg/dl Creatinine 1.19 mg/dl 1.18 mg/dl Est Creatinine Clear Calc Drug Dose 66.4 ml/min 67.6 ml/min Estimated GFR () 68.8 69.5 Estimated GFR (Non- 59.4 60.0 BUN/Creatinine Ratio 27.2 26.1 Random Glucose 106 mg/dl 106 mg/dl Calcium Level 9.2 mg/dl 9.2 mg/dl Total Bilirubin 0.6 mg/dl 0.8 mg/dl Direct Bilirubin 0.2 mg/dl 0.2 mg/dl Aspartate Amino Transf (AST/SGOT) 74 U/L 43 U/L Alanine Aminotransferase (ALT/SGPT) 75 U/L 61 U/L Alkaline Phosphatase 84 U/L 70 U/L Total Creatine Kinase 58 U/L Creatine Kinase MB 2.6 ng/ml Creatine Kinase MB Ratio 4.5 Troponin I 0.022 ng/ml 0.037 ng/ml 0.045 ng/ml Total Protein 7.4 gm/dl 7.0 gm/dl Albumin 3.6 gm/dl 3.7 gm/dl Lipase 141 U/L Bedside Hemoglobin 11.6 g/dl Bedside Hematocrit 34 % Bedside Sodium 140 mEq/L Bedside Potassium 4.2 mEq/L Bedside Chloride 100 mEq/L Bedside Total CO2 26 mEq/l Bedside Blood Urea Nitrogen 33 mg/dl Bedside Creatinine 1.2 mg/dl Bedside Glucose (other) 108 mg/dl Bedside Ionized Calcium (Missy) 1.16 mmol/l Prothrombin Time 11.2 SECONDS Prothromb Time International Ratio 1.1 Magnesium Level 1.7 mg/dl Iron Level 44 mcg/dl Total Iron Binding Capacity 399 mcg/dl Transferrin 305 mg/dl Transferrin % Saturation 10 % Ferritin 79.2 ng/ml Vitamin B12 Level 536 pg/mL Folate 9.82 ng/mL Lyme Disease IgG Antibody NEG Lyme Disease IgM Antibody NEG Imaging: Chest x-ray on admission is generally unremarkable with trace pleural fluid EKG: Sinus rhythm, 2 to one AV block on admission and this morning. Telemetry reviewed: Sinus rhythm with 2 to one AV block, heart rate typically in the low 40s. Several episodes of torsade, probably related to bradycardia. Assessment & Plan #1. Weakness, fatigue, presyncope and syncope: Most likely due to intermittent AV block, his more severe symptoms could be due to torsade which we have also seen on telemetry. #2. AV block: He has had 2 to one AV block this admission, on his last admission following a syncopal event this was not evident. This suggests progressive AV conduction disease and based on symptoms has been present for at least a month but now progressive. He was on beta-blockade (metoprolol succinate 50 mg daily) last taken more than 24 hours ago. This Xarelto the low dose and he should be on a beta alyssa. I doubt this is causing his AV block as he remains in 2-1 heart block now more than 24 hours after his last dose. I therefore recommended that we implant a pacemaker, especially in view of his torsade. I discussed the indications, procedure, risks and alternatives with him and his and they understand and he agrees to proceed. Consent obtained. I also discussed conscious sedation with him including the risks and alternatives of that, they understand and he is agreeable. Consent obtained. #3. Torsade: He had torsade on telemetry, this is a typical long short sequence and is most likely due to the bradycardia. The main treatment for this would be to implant the pacemaker, also we should reinstitute beta blockade. The pacemaker would monitor for further episodes and we can follow him symptomatically. There is no indication for electrophysiology study and I would not use antiarrhythmics at this point. #4. Coronary artery disease: He has well known coronary artery disease, but he does not have symptoms related to that and his cardiac enzymes are negative for damage. I do not think that is related to his presentation and would not alter his therapy, but he should go back on a beta alyssa once the pacemaker is implanted. We have him scheduled for his maker implantation at 1300 today. Thank you for allowing me to participate in his care.
--- NOTE | 2017-10-06 12:11 | DIAGNOSTIC IMAGING REPORT ---
CHEST ONE VIEW PORTABLE CLINICAL HISTORY: Hypoxia. COMPARISON STUDY: Chest radiograph October 05, 2017. FINDINGS: There are median sternotomy wires. Moderate cardiomegaly is noted. There is no evidence for pulmonary edema. There is no consolidation to suggest pneumonia. There are multiple old bilateral rib fractures. IMPRESSION: 1. Moderate enlargement of the cardiac silhouette which has increased since exam of September 21, 2017. This apparent change may be artifactual however a pericardial effusion could appear similar. 2. Pulmonary vascular congestion without overt pulmonary edema. Electronically signed by: Blake Mayo M.D. 10/06/2017 12:10 PM Dictated Date/Time: 10/06/2017 12:07 PM
[2017-10-06] MEDS ORDERED: BACITRACIN 50000 UNIT VIAL ONE (12:33)
[2017-10-06] MEDS ORDERED: LIDOCAINE HCL 1% 20 ML VIAL ONE (12:33)
[2017-10-06] MEDS ORDERED: BACITRACIN OINT 0.9 GM PKT ONE (12:33)
[2017-10-06] MEDS ORDERED: FENTANYL CITRATE INJ 50 MCG/1 ML 2 ML VIAL ONE (13:01)
[2017-10-06] MEDS ORDERED: MIDAZOLAM HCL 5 MG/ML 1 ML VIAL ONE (13:01)
[2017-10-06] MEDS ORDERED: CEFAZOLIN SOD 1 GM VIAL ONE (13:01)
--- NOTE | 2017-10-06 13:14 | Pre Sedation Assessment ---
Pre Sedation Assessment General Date of Sedation: Oct 06, 2017. Vital Signs Past 12 Hours Date Time Temp Pulse Resp B/P (MAP) Pulse Ox O2 Delivery O2 Flow Rate FiO2 10/06/17 12:10 36.8 41 20 152/81 (104) 96 Nasal Cannula 2.0 10/06/17 12:00 93 Nasal Cannula 2.0 10/06/17 08:03 36.9 42 16 155/71 (99) 93 Nasal Cannula 2.0 10/06/17 08:00 93 Nasal Cannula 2.0 10/06/17 04:02 37.1 43 20 148/57 (87) 93 CPAP 2.0 Review Cardiovascular: regular rate, rhythm, + bradycardia Lungs: lungs clear Pre-Sedation Airway Assessment Smoking Status: Former Smoker Hx of Sleep Apnea: Yes Hx of difficult intubation: No Short Thick Neck: No Thyro-mental Distance: > 3 Finger Breadths Oral Cavity: WNL Mallampati Classification: Class II ASA Classification: Class III NPO Status Date of Last Intake of Fluids: Oct 05, 2017 Date of Last Intake of Solids: Oct 05, 2017 Procedure Planning Contraindications for Sedation: None Current Medications Reviewed: Yes Notes The planned sedation has been discussed with the patient. Informed Consent was obtained. I have identified the patient, determined the appropriateness of sedation and have assessed the patient immediately prior to the procedure. All medicine(s) and interventions are by my order.
--- NOTE | 2017-10-06 14:21 | Post Sedation Assessment ---
Post Sedation Assessment General Date of Sedation Oct 06, 2017. Vital Signs: Vital Signs Past 12 Hours Date Time Temp Pulse Resp B/P (MAP) Pulse Ox O2 Delivery O2 Flow Rate FiO2 10/06/17 12:10 36.8 41 20 152/81 (104) 96 Nasal Cannula 2.0 10/06/17 12:00 93 Nasal Cannula 2.0 10/06/17 08:03 36.9 42 16 155/71 (99) 93 Nasal Cannula 2.0 10/06/17 08:00 93 Nasal Cannula 2.0 10/06/17 04:02 37.1 43 20 148/57 (87) 93 CPAP 2.0 Post Procedure Recovery Score Activity: (2) Moves 4 extremities * Respiration: (2) Deep breath/cough Circulation: (2) +/-20% PreAnes Value Consciousness: (2) Fully Awake Oxygen Saturation: (2) > 92% On Room Air Post Anesthesia Score: 10 Discharge Sedation Level of Care: Fast Track Phase II Post Sedation Plan On clinical assessment, the patient appears to have tolerated the sedation without complications. Patient is recovering as anticipated. Patient will continue to be monitored by nursing and may be discharged when sedation discharge criteria are met per below protocol. Upon Completions of procedure and additional 15 minutes continue every 5 minute vital signs and the P.A.R. score; then discharge to a Phase I or Fast Track to Phase II per the following guidelines: * Discharge Patient to appropriate Phase II area if PAR is 8 or greater or return to pre- procedure baseline. The post - procedure orders will be as directed. * If PAR score is less than 8 or not return to pre-procedure baseline then patient will follow Phase I monitoring till PAR is reached for Phase II. The Phase I may be done in procedure room or may call to secure a Phase I area. * If naloxone or flumazenil are used for reversal, hold in Phase I for an additional 60 -120 minutes before discharge to Phase II. Please call the Sedation Physician to re-evaluate and complete post-note for discharge to Phase II area. Do NOT discharge from procedure sedation or Phase 1 until post- sedation evaluation note is complete by procedure /sedation MD Sedation Discharge Instructions to be given to the patient at discharge to home.
--- NOTE | 2017-10-06 14:23 | [facility] Operative Report ---
Operative Report Operative Date Oct 06, 2017. 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 Patterson Automatic Operator Surgeon(s) none Estimated Blood Loss 50 cc Findings Acceptable lead position, the ventricular lead was placed on the septum as he will be pacing frequently. R waves were a little bit reduced but acceptable. There was a little more bleeding than normal, however blood loss was not excessive and this is probably due to aspirin and high venous pressures from heart block. Specimens None Anesthesia local with sedation Complication(s) None Disposition PCU Description of Procedure After obtaining informed consent for the procedure, the patient was brought to the laboratory and prepped and draped in the standard sterile manner. The left prepectoral region was anesthetized with 1% lidocaine local anesthetic and left axillary venipuncture was performed by percutaneous technique and a guidewire placed through the left subclavian vein into the superior vena cava. The area was further infiltrated with 1% lidocaine local anesthetic and a 5 cm incision was made parallel to the left clavicle and 2 cm below it and carried down to the anterior pectoralis fascia. A pacemaker pocket was formed by blunt dissection anterior to the pectoralis fascia and a bacitracin-soaked sponge (50, 000 units in 50 cc normal saline solution) was placed in the pocket. An 8 Tajik Medtronic lead introducer was placed over the guidewire into the left subclavian vein, the dilator and guidewire were removed and a bipolar active fixation steroid tipped ventricular lead was advanced through the introducer into the superior vena cava. A guidewire was placed through the introducer and the introducer was stripped from the lead and guidewire. Another 8 Tajik Medtronic lead introducer was placed over the guidewire into the left subclavian vein, the dilator and guidewire were removed and a bipolar active fixation steroid tipped atrial lead was advanced through the introducer into the superior vena cava. A guidewire was placed back through the introducer and the introducer was stripped from the lead and guidewire. Using a curved stylette the ventricular lead was advanced through the right ventricular outflow tract into the pulmonary artery and then using a straight stylette was positioned in the right ventricular apex. The screw was extended fixing the lead in position. Pacing and sensing thresholds were evaluated in bipolar configuration and are recorded on the implant data sheet. Using a curved stylette the atrial lead was positioned in the region of the atrial appendage and the screw extended fixing the lead in position. Pacing and sensing thresholds were evaluated in bipolar configuration and are recorded on the implant data sheet. Once the leads were in position they were attached to the anterior pectoralis fascia using 2 sutures of 2-0 silk around each lead collar. The bacitracin- soaked sponge was removed from the pocket, hemostasis was obtained, the pacemaker was attached to the leads and placed in the pocket with the leads coiled beneath it. The incision was closed with a running double subcutaneous closure of 3-0 V-Lock absorbable suture, followed by running subcuticular skin closure of 4-0 V-Lock absorbable suture. Bacitracin ointment was placed on the incision and a pressure dressing applied. I attest to the content of the Intraoperative Record and any orders documented therein. Any exceptions are noted below.
[2017-10-06] MEDS ORDERED: ACETAMINOPHEN 325 MG TAB PO PRN (17:15)
[2017-10-06] MEDS ORDERED: KETOROLAC TROMETHAMINE 10 MG TAB PO PRN (17:15)
[2017-10-06] MEDS: PANTOprazole SOD 40 MG TAB PO SCH (21:32)
[2017-10-06] MEDS: EZETIMIBE/SIMVASTATIN 10/40 TAB PO SCH (21:32)
[2017-10-06] MEDS: CEFAZOLIN IV 2,000 MG in SYRINGE 0 ML IV SCH (21:45)
[2017-10-07 02:58] VITALS: BP 135/77; PULSE 67; TEMP 36.4; O2SAT 93
[2017-10-07] MEDS ORDERED: CEFAZOLIN 2000MG IV PUSH 15 ML IV SCH (06:00)
[2017-10-07] MEDS ORDERED: CEFAZOLIN SOD 1000MG/7.5 ML IV PUSH IV SCH (06:00)
[2017-10-07] MEDS: CEFAZOLIN IV 2,000 MG in SYRINGE 0 ML IV SCH (06:06)
[2017-10-07] MEDS: HEPARIN SOD 5000 UNIT/0.5 ML CARP SQ SCH (06:13)
--- NOTE | 2017-10-07 06:42 | DIAGNOSTIC IMAGING REPORT ---
CHEST 2 VIEWS ROUTINE CLINICAL HISTORY: EXACT TIME ORDERED Evaluate for pneumothorax and lead placement dyspnea COMPARISON STUDY: 10/06/2017 FINDINGS: Placement of a permanent bipolar cardiac pacemaker. Leads in good position. No evidence pneumothorax. IMPRESSION: Placement of a permanent bipolar cardiac pacemaker. Leads in good position. No pneumothorax. The above report was generated using voice recognition software. It may contain grammatical, syntax or spelling errors. Electronically signed by: Nitesh Zazueta M.D. 10/07/2017 6:41 AM Dictated Date/Time: 10/07/2017 6:38 AM
[2017-10-07 07:06] LABS: HEMATOCRIT 30.4 % (42-52); HEMOGLOBIN 10.1 g/dL (14.0-18.0); MEAN CELL VOLUME 88.6 fL (80-100); MEAN CORPUSCULAR HEMOGLOBIN 29.4 pg (25-34); MEAN CORPUSCULAR HGB CONC 33.2 g/dl (32-36); RED CELL DISTRIBUTION WIDTH CV 14.2 % (11.5-14.5); RED CELL DISTRIBUTION WIDTH SD 46.2 fL (36.4-46.3)
[2017-10-07 07:11] LABS: MEAN PLATELET VOLUME 10.6 fL (7.4-10.4); PLATELET COUNT 82 K/uL (130-400)
[2017-10-07 07:36] LABS: CALCIUM 8.4 mg/dl (8.5-10.1); CREATININE 0.93 mg/dl (0.60-1.40); POTASSIUM 3.6 mmol/L (3.5-5.1)
[2017-10-07] MEDS: ASPIRIN 81 MG ECTAB PO SCH (07:36)
[2017-10-07] MEDS: CHOLECALCIFEROL 1000 INTER.UNIT TAB PO SCH (07:36)
[2017-10-07] MEDS: HYDROCHLOROTHIAZIDE 25 MG TAB PO SCH (07:37)
[2017-10-07] MEDS: MULTIVITAMIN TAB PO SCH (07:37)
[2017-10-07 07:59] VITALS: BP 116/77; PULSE 70; TEMP 37.1; O2SAT 92
[2017-10-07 08:00] VITALS: O2SAT 94
--- NOTE | 2017-10-07 08:28 | Cardiology Follow-Up ---
Subjective Date of Service: Oct 07, 2017. Pt evaluation today including: conversation w/ patient, physical exam, lab review, review of studies, review of inpatient medication list History of Present Illness This is a very pleasant 77-year-old gentleman who has a history of coronary artery disease and other vascular disease. He had a PCI to the right coronary artery in 2009, and then in 2012 had a right coronary artery perforation where he required emergency bypass surgery where he had a ROBERTO to the LAD, saphenous vein graft to the posterior lateral branch, saphenous vein graft to ramus intermedius. This was performed at [facility] and he has been symptomatically stable since. He has also had mesenteric artery stenosis. He has hypertension and hyperlipidemia as well as COPD and obstructive sleep apnea. He presented with an episode of syncope generator 2017, but no arrhythmia was identified and the cause was not clear. He then has had further presyncopal episodes (and possibly has had other episodes of syncope, and minimizes his symptoms according to his who is present today). In general he has been feeling poorly for about a month with intermittent difficulty with exertion and lightheadedness. He felt quite dizzy and lightheaded on 10/05/2017, he presented to the emergency room and was bradycardic at around 40 bpm which appeared to be 2 to one AV block. He also has a right bundle branch block pattern. He was admitted, placed on telemetry. He has continued to feel somewhat weak, and his heart rate has remained low. A Lyme titer was negative. He remained in 2-1 AV block for 24 hours after discontinuation of low-dose metoprolol, therefore dual-chamber pacemaker was implanted yesterday afternoon. Today he feels well, he feels stronger, he has minimal incisional discomfort. Social History Smoking Status: Former Smoker History of Alcohol Use: Yes (1-3 drinks per day) Review of Systems Respiratory: No cough, No wheezing, No shortness of breath, No dyspnea on exertion Cardiac: + see HPI, No chest pain, No orthopnea, No PND, No edema, No palpitations Minor incisional discomfort Medications Cardiovascular: Item Value Date Time Metoprolol 50 mg 10/07/17 09 Succinate QAM/PO 10/07/17 0737 (Toprol Xl Tab) Aspirin 81 mg 10/06/17 0900 (Ecotrin Tab) QAM/PO 10/07/17 0736 Hydrochlorothiazide 25 mg 10/06/17 0900 (Hydrochlorothiazide QAM/PO 10/07/17 0737 Tab) Ezetimibe/ 1 tab 10/05/17 2100 Simvastatin QPM/PO 10/06/17 2132 (Vytorin 10/40 Tab) Objective Vital Signs Past 12 Hours Date Time Temp Pulse Resp B/P (MAP) Pulse Ox O2 Delivery O2 Flow Rate FiO2 10/07/17 08:00 94 Room Air 10/07/17 07:59 37.1 70 20 116/77 (90) 92 Room Air 10/07/17 04:00 Room Air 10/07/17 02:58 36.4 67 18 135/77 (96) 93 CPAP 10/07/17 00:00 CPAP 10/06/17 23:30 136/75 (95) 10/06/17 23:20 36.8 75 19 175/84 (114) 92 CPAP Last Recorded Weight-Kilograms: 100.700 Physical Exam Constitutional: General Apperance: heathly-appearing Level of Distress: NAD Lungs: Respiratory effort: no dyspnea, good air movement Auscultation: breath sounds normal, no wheezing Cardiovascular: Heart Auscultation: RRR, no murmurs, no rubs, no gallops Peripheral Pulses: Bruits: none appreciated Extremities: no edema Pacemaker site is dry, he does have some ecchymosis at the site but no swelling. Minimal tenderness. Data Laboratory Results: Last 24 Hours Test 10/07/17 06:49 White Blood Count 4.80 K/uL Red Blood Count 3.43 M/uL Hemoglobin 10.1 g/dL Hematocrit 30.4 % Mean Corpuscular Volume 88.6 fL Mean Corpuscular Hemoglobin 29.4 pg Mean Corpuscular Hemoglobin Concent 33.2 g/dl RDW Standard Deviation 46.2 fL RDW Coefficient of Variation 14.2 % Platelet Count 82 K/uL Mean Platelet Volume 10.6 fL Sodium Level 137 mmol/L Potassium Level 3.6 mmol/L Chloride Level 104 mmol/L Carbon Dioxide Level 25 mmol/L Anion Gap 8.0 mmol/L Blood Urea Nitrogen 22 mg/dl Creatinine 0.93 mg/dl Est Creatinine Clear Calc Drug Dose 85.6 ml/min Estimated GFR () 92.7 Estimated GFR (Non- 80.0 BUN/Creatinine Ratio 23.3 Random Glucose 104 mg/dl Calcium Level 8.4 mg/dl Imaging: Chest x-ray shows good lead position, no pneumothorax EKG: Sinus rhythm with atrial sensing and ventricular pacing throughout. Telemetry reviewed: Sinus rhythm with ventricular pacing, several runs of nonsustained ventricular tachycardia. Assessment and Plan #1. Weakness, fatigue, presyncope and syncope: This is most likely due to AV block, I cannot exclude nonsustained ventricular tachycardia but the pacemaker will monitor for that. #2. AV block: He presented with 2 to one AV block, now with a pacemaker that should no longer be present. #3. Torsade and NSVT: He had episodes of torsade which appeared to be bradycardia related prior to pacemaker implantation, since pacemaker implantation he has had brief runs of nonsustained ventricular tachycardia. He has not received his beta alyssa until this morning, therefore that may help with suppression of these arrhythmias. The pacemaker will monitor for nonsustained ventricular tachycardia. At the moment I would continue his beta blockade, we may want to increase the dose as an outpatient if he continues to have nonsustained ventricular tachycardia. I would not consider antiarrhythmic therapy at this time. So far believe these have been asymptomatic, although we don't know his rhythm when he had presyncope and syncope at home. #4. Coronary artery disease: He has coronary artery disease however does not have symptoms related to it that I can elicit. I would recommend discharging him today, I will arrange a follow-up in 2 days in the office. He'll probably interrogate the pacemaker at that time to make sure we do not miss ventricular tachycardia. Thank you for allowing me to participate in his care.
--- NOTE | 2017-10-07 08:42 | Discharge Instructions ---
Discharge Instructions Date of Service Oct 07, 2017. Admission Reason for Admission: AV block Discharge Discharge Diagnosis / Problem: pacemaker implantation Discharge Goals Goal(s): Improve disease control Activity Recommendations Activity Limitations: resume your previous activity . Instructions / Follow-Up Instructions / Follow-Up ACTIVITY RECOMMENDATIONS: * Do not raise affected arm over head for 2 weeks. SPECIAL CARE INSTRUCTIONS: * If bleeding occurs, apply direct pressure to area for 5 minutes. * Call your doctor if you have severe pain, fever, drainage or bleeding at site. * Keep dressing on and dry for 48 hours then remove. * Keep any scheduled doctor's appointment. * Implant Card - hand held device with website information given. SKIN IRRITATION: * You may experience some redness and/or swelling in the area where radiation was administered. If any skin irritation occurs, please contact your family physician. FOLLOW UP VISIT: Dr. Patterson, , 10/09/2017, 9:30 AM Current Hospital Diet Patient's current hospital diet: AHA Diet (Heart Healthy) Discharge Diet Recommended Diet: N/A Pending Studies Studies pending at discharge: no Medical Emergencies . Who to Call and When: Medical Emergencies: If at any time you feel your situation is an emergency, please call 911 immediately. . Non-Emergent Contact Non-Emergency issues call your: Primary Care Provider . . "Provider Documentation" section prepared by Scott Patterson. . VTE Core Measure Inpt VTE Proph given/why not?: SCD's
[2017-10-07] MEDS ORDERED: THIAMINE HCL 100 MG TAB PO SCH (09:00)
[2017-10-07] MEDS ORDERED: METOPROLOL SUCC 50MG EXT REL TAB PO SCH (09:00)
--- NOTE | 2017-10-07 10:28 | Discharge Summary ---
Discharge Summary Date of Service Oct 07, 2017. Discharge Summary Admission Date: Oct 05, 2017 at 17:02 Discharge Date: Oct 07, 2017 Discharge Disposition: Home Principal Diagnosis: Bradycardia, 2:1 AV block Problems/Secondary Diagnoses: Hx CAD/HLD/Diastolic CHF, hypoxia due to acuet CHF exacerbation, Hx prostate CA/ incontinence, Rosacea Procedures: Dual chamber pacer placement CHEST 2 VIEWS ROUTINE IMPRESSION: Placement of a permanent bipolar cardiac pacemaker. Leads in good position. No pneumothorax. CHEST ONE VIEW PORTABLE CLINICAL HISTORY: Hypoxia. COMPARISON STUDY: Chest radiograph October 05, 2017. FINDINGS: There are median sternotomy wires. Moderate cardiomegaly is noted. There is no evidence for pulmonary edema. There is no consolidation to suggest pneumonia. There are multiple old bilateral rib fractures. IMPRESSION: 1. Moderate enlargement of the cardiac silhouette which has increased since exam of September 21, 2017. This apparent change may be artifactual however a pericardial effusion could appear similar. 2. Pulmonary vascular congestion without overt pulmonary edema. Consultations: Dr. Austin from cardiology Medication Reconciliation Continued Medications: Acetaminophen (Tylenol) 500 Mg Tab 1000 MG PO UD PRN for Pain Aspirin (Aspirin Ec) 81 Mg Tab 81 MG PO QAM Cholecalciferol (Vitamin D3) 2,000 Unit Cap 4000 UNITS PO DAILY for 90 Days, CAP 3 Refills takes anytime Citalopram Hydrobromide (Celexa) 10 Mg Tab 10 MG PO QAM for 30 Days, #30 TAB 2 Refills Doxycycline Monohydrate (Monodox) 100 Mg Cap 100 MG PO Q2D, CAP Esomeprazole Magnesium (Nexium) 40 Mg Capcr 40 MG PO QPM, CAP Ezetimibe/Simvastatin (Vytorin 10-40 mg) 1 Tab Tab 1 TAB PO QPM Hydrochlorothiazide (Hctz) 25 Mg Tab 25 MG PO QAM for 30 Days, #30 TAB 5 Refills Metoprolol Succinate (Metoprolol Succinate ER) 50 Mg Tabcr 50 MG PO QAM Multivitamin (Multivitamin) Tab 1 TAB PO QAM, TAB Tadalafil (Cialis) 5 Mg Tab 5 MG PO QAM, TAB Tolterodine Tartrate (Detrol) 2 Mg Tab 2 MG PO BID Discharge Exam ROS Constitutional: no chills, aches, sweats or fever Respiratory: no sob,cough, sputum, or wheezing Cardiac: no chest pain, palpitations, edema, orthopnea or lightheadedness GI: no abdominal pain, nausea, vomiting, diarrhea or constipation : no dysuria or hesitancy Extremities: no joint pain or weakness, tolerable pain from surgical site Skin: no rash All other systems reviewed and negative General: no distress Eyes: normal inspection, PERLL Respiratory: chest non tender, clear to auscultation, normal breath sounds, no respiratory distress, no accessory muscle use Cardiac: regular rate and rhythm, no rub or gallop, no murmur, no edema, no jvd GI/: active bowel sounds, no abd pain or tenderness, soft, non distended Extremities: normal range of motion, normal strength, non tender Neuro/Psych: alert and oriented x 3, normal mood and affect Skin: normal color, dry, dressing dry and intact over surgical site Hospital Course Mr. Sesay is a 77 year old man here for symptomatic bradycardia. 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 He has been on Cialis for 3 months and Detrol for bladder control since his complication from prostatectomy last year. Hx of CABG x3 2012, prostate cancer with prostatectomy in 2016 with complication from migrated clip a year later that lead to sepsis, recent TKA in July Symptomatic bradycardia,vtach/brieftorsades 10/06 - consulted cardiology - dual chamber pacer placement 10/06 - Held Cialis, Detrol, and metoprolol until after pacer placed - restarted for home - troponins negative - Patient was asymptomatic during torsades/vtach - three five beat runs of tachycardia over the night - cardiology aware Hypomagnesemia - replaced Hx CAD/HLD/acute on chronic Diastolic CHF - appeared somewhat overloaded over the night 10/05 and requiring supplemental o2 at 2L - given lasix - appears euvolemic today for discharge - CHF likely exacerbated by bradycardia - continue ASA, statin - restarted metoprolol for discharge Hx prostate CA/incontinence - held medications as above - restarted for discharge Rosacea - continue q2d doxycycline ETOH abuse - drinks two mixed drinks per night, AST elevated on admission, fatty liver on imaging - monitor for withdrawal symptoms - no symptoms this admission - folate, thiamine supplements - alcohol cessation counseling 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 Discussed with Alina Guillard RECEPTIONIST TELEPHONE OPERATOR and agree with findings and plan as documented in the note. Any exceptions or clarifications are listed here: None Patient is done well since his pacemaker placement he was seen by Dr. Patterson and released to go home his chest x-ray is unremarkable level follow-up appointment with his vital signs are reviewed Patient is seen with his his heart is regular his pacemaker site is mildly tender he'll be released with short follow-up with Dr. patterson in the clinic in 2 days Documented By: Hemant Lombardi Total Time Spent: Greater than 30 minutes This includes examination of the patient, discharge planning, medication reconciliation, and communication with other providers. Discharge Instructions Please refer to the electronic Patient Visit Report (Discharge Instructions) for additional information. Follow-Up Dr. Austin 10/09
[2017-10-07 11:15] VITALS: BP 116/77; PULSE 70; TEMP 37.1; O2SAT 94
[2017-10-07] MEDS ORDERED: LACTATED RINGER'S 1000ML 1,000 ML IV ONE (12:00)
== END 2017-10-07 12:06 | disposition home or self-care (01) | DRG 242 ==
LOC: C.EDB 14:36 → C.2T 17:02 → EDBEDREQ 17:15 → ENRESERV 17:29
PROVIDERS: ADMIT Family Medicine; ATTEND Family Medicine
PROC: 0JH606Z Insertion of Pacemaker, Dual Chamber into Chest Subcutaneous Tissue and Fascia, Open Approach (ICD-10-PCS; principal; 2017-10-06 13:03)
PROC: 02HK3JZ Insertion of Pacemaker Lead into Right Ventricle, Percutaneous Approach (ICD-10-PCS; principal; 2017-10-06 13:03)
PROC: 02H63JZ Insertion of Pacemaker Lead into Right Atrium, Percutaneous Approach (ICD-10-PCS; principal; 2017-10-06 13:03)
DX: I45.5 Other specified heart block (principal); I50.33 Acute on chronic diastolic (congestive) heart failure; I45.10 Unspecified right bundle-branch block; I47.2 Ventricular tachycardia; R00.1 Bradycardia, unspecified; Z96.659 Presence of unspecified artificial knee joint; Z85.46 Personal history of malignant neoplasm of prostate; E78.5 Hyperlipidemia, unspecified; I11.0 Hypertensive heart disease with heart failure; Z95.5 Presence of coronary angioplasty implant and graft; J44.9 Chronic obstructive pulmonary disease, unspecified; N39.498 Other specified urinary incontinence; I27.20 Pulmonary hypertension, unspecified; F32.9 Major depressive disorder, single episode, unspecified; E83.42 Hypomagnesemia; Z87.891 Personal history of nicotine dependence; Z79.82 Long term (current) use of aspirin; I25.10 Atherosclerotic heart disease of native coronary artery without angina pectoris; L71.9 Rosacea, unspecified; G47.33 Obstructive sleep apnea (adult) (pediatric); F10.10 Alcohol abuse, uncomplicated; Z88.5 Allergy status to narcotic agent; Z88.2 Allergy status to sulfonamides; Z88.8 Allergy status to other drugs, medicaments and biological substances; Z90.79 Acquired absence of other genital organ(s); Z95.1 Presence of aortocoronary bypass graft

== ENCOUNTER → 2017-12-04 | Outpatient (CLI) | payer OTHER ==
[~2017-12-04] MED LIST changes: -KFL500 PO
== END | disposition home or self-care (01) ==
LOC: C.LABPBG 13:44
PROVIDERS: ATTEND Urology
DX: N39.41 Urge incontinence (principal)

== ENCOUNTER → 2018-03-13 | Outpatient (CLI) | payer OTHER ==
[~2018-03-13] MED LIST changes: +REGADENOSON 0.4 MG/5 ML SYR ONE
--- NOTE | 2018-03-13 15:46 | Myocardial Perfusion Study ---
Myocardial Perfusion Study Rpt Myocardial Perfusion Study Rpt Myocardial Perfusion Study Rpt ONE DAY NUCLEAR MEDICINE LEXISCAN TECHNETIUM 99M MYOCARDIAL PERFUSION SCAN Indication: History of coronary artery disease post CABG, new exertional dyspnea. Baseline ECG: Normal sinus rhythm, right bundle-branch block, possible inferior infarct, no ST abnormalities, occasional PVCs. Ventricular rate 70. Stress ECG: No Lexiscan induced ST changes. Frequent PVCs. HR beny from 68 to 99 representing 68 % MPHR. SBP 142/86 Technique: For the stress portion of the study 33 mCi of Technetium 99m Cardiolite IV was injected at 13:05 on 03/13/2018. 30 minutes following the injection, imaging of the heart was performed in multiple projections. For the rest portion of the study, 10.9 mCi of Technetium 99m Cardiolite was injected IV at 11:15 am. One hour following the injection, imaging of the hear was performed in the same projections. Findings: Rotating raw images were reviewed in detail. Potential sources of attenuation include mild diaphragmatic attenuation, and minimal gut uptake impacting the inferior imaging border of the heart. No significant extracardiac pathologic uptake. Short axis, vertical long axis and horizontal long axis images were reviewed in detail. No visual TID. Small, moderate, fixed perfusion defect involving the base to mid inferior wall, with corresponding wall motion abnormality suggestive of prior infarct. Small, mild, reversible perfusion defect involving the mid anterolateral, and apical lateral segments. SDS 4 Normal LV size. EDV 173 ml. Calculated EF 37 %. Hypokinetic base to mid inferior wall. Paradoxical septal motion consistent with postoperative state. SUMMARY: 1. Positive myocardial perfusion study for a mild amount of Lexiscan induced ischemia in the mid anterolateral, apical lateral segments. 2. Fixed inferior base to mid perfusion defect with corresponding wall motion abnormality consistent with prior infarct. 3. Dilated LV with moderate LV dysfunction. LVEF 37% with inferior hypokinesis and paradoxical septal motion consistent with postoperative state. 4. Non-diagnostic stress ECG due to inability to reach target HR with Lexiscan.
== END | disposition home or self-care (01) ==
LOC: C.NUCL 10:46
PROVIDERS: ATTEND Internal Medicine Interventional Cardiology
DX: I25.10 Atherosclerotic heart disease of native coronary artery without angina pectoris (principal)

== ENCOUNTER 2018-10-12 10:54 | Inpatient (IN) ==
[2018-10-12] MEDS ORDERED: ONDANSETRON INJ 2 MG/ML 2 ML VIAL IV STA (11:00)
[2018-10-12] MEDS ORDERED: SODIUM CHLORIDE 0.9% 1000ML 1,000 ML IV SCH (11:00)
--- NOTE | 2018-10-12 11:07 | Emergency Department Note ---
Entered by Demetria Herrmann acting as a scribe for History of Present Illness General Chief complaint: Abdominal Pain Stated complaint: Lower ABD pain. Time Seen by Provider: 10/12/18 10:55 Source: patient Mode of arrival: EMS History of Present Illness Provider complaint: abdominal pain Onset (ago): day(s) (yesterday ) Location: abdomen (mid) Pain Consistency: + intermittent Quality: + sharp Associated symptoms: + other (vomiting. Denies: back pain, chest pain, trouble breathing) The patient is a 78 year old male who presents to the Emergency Room with complaints of intermittent, sharp mid-abdominal pains beginning yesterday. He denies a history of similar symptoms. The patient states he vomited. He denies back pain, chest pain, or trouble breathing. Home Medications Home Medications Medication Instructions Recorded Confirmed Type aspirin [Aspir-81] 81 mg PO QAM 06/19/18 10/12/18 History cholecalciferol (vitamin D3) 2,000 unit PO QAM 06/19/18 10/12/18 History [Vitamin D3] citalopram 10 mg PO QAM 06/19/18 10/12/18 History doxycycline hyclate 50 mg PO Q3D 06/19/18 10/12/18 History esomeprazole magnesium [Nexium] 40 mg PO HS 06/19/18 10/12/18 History ezetimibe-simvastatin [Vytorin 1 tab PO HS 06/19/18 10/12/18 History 10-40] hydrochlorothiazide 25 mg PO QAM 06/19/18 10/12/18 History isosorbide mononitrate 30 mg PO QAM 06/19/18 10/12/18 History losartan 25 mg PO QAM 06/19/18 10/12/18 History multivitamin [Multiple Vitamins] 1 tab PO QAM 06/19/18 10/12/18 History metoprolol tartrate 50 mg PO BID 09/04/18 10/12/18 History ondansetron 4 mg PO QID PRN 09/04/18 10/12/18 History nitrofurantoin monohyd/m-cryst 100 mg PO BID 09/15/18 10/12/18 History [Macrobid] oxybutynin chloride 5 mg PO TID PRN 09/16/18 10/12/18 History nystatin 1 appln TOP BID #15 gm 09/29/18 10/12/18 Rx triamcinolone acetonide 1 appln TOP BID #15 gm 09/29/18 10/12/18 Rx Allergies Allergy/AdvReac Type Severity Reaction Status Date / Time oxycodone [From OxyContin] Allergy Unknown Hallucinati Verified 10/12/18 12:29 ng Sulfa (Sulfonamide Allergy Unknown rash Verified 10/12/18 12:29 Antibiotics) lisinopril AdvReac Mild cough Verified 10/12/18 12:29 ciprofloxacin [From Cipro] AdvReac Unknown see notes Verified 10/12/18 12:29 metoclopramide AdvReac Unknown Depression Verified 10/12/18 12:29 Past Med/Surg History Medical History A-fib INCIDENTAL A.FIB/A. 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 CABG X3 Hyperlipidemia Kyphosis Pulmonary HTN RVSP 40-50MMHG Rosacea SMA stenosis ASYMPTOMATIC; "INCIDENTAL FINDING" PER CARDIO Sleep apnea CPAP UTI (urinary tract infection) RE-OCCURING , ED 09/04/18 - CATH CHANGE AND AWAITING URINE CULTURE Surgical History History of arthroplasty of right knee History of cardiac cath (HX MULTIPLE CATHS/TOTAL OF 2 STENTS) MOST RECENT...03/25/18 ABNORMAL STRESS TEST/NO STENTS History of robot-assisted laparoscopic radical prostatectomy Hx of bilateral cataract extraction WITH LASIK PROCEDURE Hx of colonoscopy Hx of heart bypass surgery S/P CABG X 3 (2012) Hx of tooth extraction Family History Other HTN (hypertension) Social History Current Living Situation: Spouse Other Information That Helps Us Care for You: No Feels Safe at Home: Yes Safety Concerns: Feels Safe At This Time Smoking Status: Never smoker Tobacco Type: cigarettes Cigarettes per Day: QUIT 30 YRS AGO. Smoked 1ppd x 20 years. 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 and A total of 10 systems reviewed and were otherwise negative Physical Exam Vital Signs Vital Signs - 24 hr 10/12/18 12:26 10/12/18 12:30 10/12/18 12:40 Temperature Temperature Source Pulse Rate 88 83 85 Pulse Rate [Bilateral Apical] Pulse Rhythm [Bilateral Apical] Pulse Strength [Bilateral Apical] Respiratory Rate 17 15 Respiratory Effort / Characteristics Respiratory Depth Respiratory Pattern Blood Pressure Blood Pressure [Right Arm] Blood Pressure Mean Blood Pressure Mean [Right Arm] Blood Pressure Position [Right Arm] Pulse Oximetry Oxygen Delivery Method 10/12/18 12:50 10/12/18 13:00 10/12/18 13:10 Temperature Temperature Source Pulse Rate 84 85 85 Pulse Rate [Bilateral Apical] Pulse Rhythm [Bilateral Apical] Pulse Strength [Bilateral Apical] Respiratory Rate 20 22 15 Respiratory Effort / Characteristics Respiratory Depth Respiratory Pattern Blood Pressure Blood Pressure [Right Arm] Blood Pressure Mean Blood Pressure Mean [Right Arm] Blood Pressure Position [Right Arm] Pulse Oximetry Oxygen Delivery Method 10/12/18 13:20 10/12/18 13:30 10/12/18 13:40 Temperature Temperature Source Pulse Rate 79 90 88 Pulse Rate [Bilateral Apical] Pulse Rhythm [Bilateral Apical] Pulse Strength [Bilateral Apical] Respiratory Rate 19 24 14 Respiratory Effort / Characteristics Respiratory Depth Respiratory Pattern Blood Pressure Blood Pressure [Right Arm] Blood Pressure Mean Blood Pressure Mean [Right Arm] Blood Pressure Position [Right Arm] Pulse Oximetry Oxygen Delivery Method 10/12/18 13:50 10/12/18 14:00 10/12/18 14:10 Temperature Temperature Source Pulse Rate 88 91 H 84 Pulse Rate [Bilateral Apical] Pulse Rhythm [Bilateral Apical] Pulse Strength [Bilateral Apical] Respiratory Rate 17 21 14 Respiratory Effort / Characteristics Respiratory Depth Respiratory Pattern Blood Pressure Blood Pressure [Right Arm] Blood Pressure Mean Blood Pressure Mean [Right Arm] Blood Pressure Position [Right Arm] Pulse Oximetry 96 Oxygen Delivery Method 10/12/18 14:12 10/12/18 14:20 10/12/18 14:30 Temperature Temperature Source Pulse Rate 88 91 H 87 Pulse Rate [Bilateral Apical] Pulse Rhythm [Bilateral Apical] Pulse Strength [Bilateral Apical] Respiratory Rate 16 13 12 Respiratory Effort / Characteristics Respiratory Depth Respiratory Pattern Blood Pressure 144/80 H Blood Pressure [Right Arm] Blood Pressure Mean 101 Blood Pressure Mean [Right Arm] Blood Pressure Position [Right Arm] Pulse Oximetry 95 96 95 Oxygen Delivery Method 10/12/18 14:40 10/12/18 14:50 10/12/18 15:10 Temperature 37.0 C Temperature Source Oral Pulse Rate 88 85 Pulse Rate [Bilateral Apical] 65 Pulse Rhythm [Bilateral Apical] Regular Pulse Strength [Bilateral Apical] Normal Respiratory Rate 13 15 16 Respiratory Effort / Characteristics Non-Labored Spontaneous Respiratory Depth Normal Respiratory Pattern Regular Blood Pressure Blood Pressure [Right Arm] 119/77 Blood Pressure Mean Blood Pressure Mean [Right Arm] 91 Blood Pressure Position [Right Arm] Lying Pulse Oximetry 95 94 94 Oxygen Delivery Method Room Air 10/12/18 19:31 10/12/18 23:11 10/12/18 23:50 Temperature 36.7 C 36.8 C Temperature Source Oral Oral Pulse Rate 61 Pulse Rate [Bilateral Apical] 75 67 Pulse Rhythm [Bilateral Apical] Pulse Strength [Bilateral Apical] Respiratory Rate 20 16 17 Respiratory Effort / Characteristics Non-Labored Spontaneous Respiratory Depth Normal Normal Respiratory Pattern Regular Blood Pressure Blood Pressure [Right Arm] 142/70 H 121/70 Blood Pressure Mean Blood Pressure Mean [Right Arm] 94 87 Blood Pressure Position [Right Arm] Lying Lying Pulse Oximetry 94 96 97 Oxygen Delivery Method Room Air CPAP 10/13/18 01:55 10/13/18 03:57 10/13/18 05:00 Temperature 37.0 C Temperature Source Oral Pulse Rate 66 64 Pulse Rate [Bilateral Apical] 60 Pulse Rhythm [Bilateral Apical] Pulse Strength [Bilateral Apical] Respiratory Rate 14 18 16 Respiratory Effort / Characteristics Non-Labored Spontaneous Non-Labored Spontaneous Respiratory Depth Normal Normal Normal Respiratory Pattern Regular Regular Blood Pressure Blood Pressure [Right Arm] 137/73 Blood Pressure Mean Blood Pressure Mean [Right Arm] 94 Blood Pressure Position [Right Arm] Lying Pulse Oximetry 94 96 96 Oxygen Delivery Method CPAP 10/13/18 07:16 10/13/18 07:30 10/13/18 11:28 Temperature 36.4 C L 36.6 C Temperature Source Oral Oral Pulse Rate 77 Pulse Rate [Bilateral Apical] 67 62 Pulse Rhythm [Bilateral Apical] Pulse Strength [Bilateral Apical] Respiratory Rate 16 16 Respiratory Effort / Characteristics Respiratory Depth Normal Normal Respiratory Pattern Blood Pressure Blood Pressure [Right Arm] 152/78 H 128/66 Blood Pressure Mean Blood Pressure Mean [Right Arm] 102 86 Blood Pressure Position [Right Arm] Right Lateral Pulse Oximetry 98 96 Oxygen Delivery Method Room Air GENERAL: Patient is awake alert in no acute distress patient is resting comfortably and showing no signs of anxiety EYES: The conjunctivae are clear. The pupils are round and reactive. EARS, NOSE, MOUTH AND THROAT: The nose is without any evidence of any deformity. Mucous membranes are moist tongue is midline NECK: The neck is nontender and supple. RESPIRATORY: Normal respiratory effort is noted there is no evidence of wheezing rhonchi or rales CARDIOVASCULAR: Regular rate and rhythm noted there no murmurs rubs or gallops normal S1 normal S2 GASTROINTESTINAL: The abdomen is moderately distended and diffusely tender. There is no guarding or rigidity appreciated. MUSCULOSKELETAL/EXTREMITIES: There is no evidence of gross deformity full range of motion is noted in the hips and shoulders SKIN: There is no obvious evidence of any rash. Trace pedal edema was noted bilaterally. NEUROLOGIC: Patient is awake alert and oriented x3 strength is symmetric patellar reflexes are 2+ bilaterally Course 1059: Past medical records reviewed. The patient was evaluated in room C2B, and a complete history and physical examination were performed. 1319: I reevaluated and updated the patient. He verbalized agreement with the treatment plan. 1326: I reviewed the patient's case with Dr. Marcos, [facility] hospitalist. He will evaluate the patient for further management. 1339: I discussed the case with [facility], GI. Consultations Consultation #1: Dr. Marcos, [facility] hospitalist Time: 13:26 Consultation #2: [facility], GI. Time: 13:39 Administered Medications Potassium Chloride/Sodium Chloride (Normal Saline W/20 Meq Kcl) 20 meq in 1, 000 mls @ 200 mls/hr IV .Q5H [facility]ENICE Stop: 11/11/18 16:14 Last Infusion: 10/13/18 09:45 Dose: 0 mls/hr Admin: 10/13/18 07:31 Dose: 200 mls/hr Infusion: 10/13/18 07:31 Dose: 200 mls/hr Admin: 10/13/18 04:15 Dose: 200 mls/hr Infusion: 10/13/18 02:14 Dose: 200 mls/hr Admin: 10/12/18 21:14 Dose: 200 mls/hr Infusion: 10/12/18 21:14 Dose: 200 mls/hr Admin: 10/12/18 16:39 Dose: 200 mls/hr Piperacillin Sod/Tazobactam (Sod 3.375 gm/ Dextrose) 115 mls @ 28.75 mls/hr IV Q8H [facility]ENICE Stop: 10/22/18 19:59 Last Infusion: 10/13/18 09:44 Dose: 0 mls/hr Admin: 10/13/18 05:09 Dose: 28.8 mls/hr Infusion: 10/13/18 00:00 Dose: 28.8 mls/hr Admin: 10/12/18 20:00 Dose: 28.8 mls/hr Metoprolol Tartrate (Lopressor) 50 mg PO BID VENICE Stop: 11/11/18 20:59 Last Admin: 10/12/18 21:14 Dose: 50 mg Nystatin (Nystatin) 1 appln EXT BID VENICE Stop: 11/11/18 20:59 Last Admin: 10/13/18 07:32 Dose: 1 appln Admin: 10/12/18 21:14 Dose: 1 appln Triamcinolone Acetonide (Kenalog 0.1%) 1 appln TOP BID VENICE Stop: 11/11/18 20:59 Last Admin: 10/13/18 07:32 Dose: 1 appln Admin: 10/12/18 21:13 Dose: 1 appln Discontinued Medications Famotidine (Pepcid 20mg Iv Push) 20 mg IV ONE STA Stop: 10/12/18 13:30 Last Admin: 10/12/18 14:19 Dose: 20 mg Sodium Chloride (Nss 1000ml) 1,000 mls @ 999 mls/hr IV .Q1H1M VENICE Stop: 10/12/18 12:00 Last Infusion: 10/12/18 12:54 Dose: 0 mls/hr Admin: 10/12/18 11:30 Dose: 999 mls/hr Piperacillin Sod/Tazobactam Sod (Zosyn) 4.5 gm in 120 mls @ 240 mls/hr IV NOW ONE Stop: 10/12/18 13:48 Last Infusion: 10/12/18 14:56 Dose: 0 mls/hr Admin: 10/12/18 14:04 Dose: 240 mls/hr Pantoprazole Sodium 40 mg/ (Syringe) 10 mls @ 5 mls/min IV NOW ONE Stop: 10/12/18 13:30 Last Admin: 10/12/18 14:19 Dose: 5 mls/min Ioversol (Optiray 320 100ml) 93 ml IV ONCE PRN PRN Reason: Interaction Checking Stop: 10/16/18 11:57 Last Admin: 10/12/18 11:58 Dose: 93 ml Ondansetron HCl (Zofran) 4 mg IV NOW STA Stop: 10/12/18 11:01 Last Admin: 10/12/18 11:38 Dose: 4 mg Medical Decision Making Differential Diagnosis Differential considered: pancreatitis, hepatitis, or acute cholecystitis, AAA, UTI, pyelonephritis, kidney stones, appendicitis, diverticulitis, shingles, bowel obstruction mesenteric ischemia, intussusception,hernia, testicular torsion, ovarian torsion, ruptured ovarian cyst,ectopic , . Medical Records Attestation: I reviewed the patient's medical records. Home Medications Current Medication List: was personally reviewed by me Laboratory Data Attestation: I reviewed the patient's lab results. Result diagrams: 10/13/18 05:40 10/13/18 05:40 Lab Results 10/12/18 10/12/18 10/12/18 Range/Units 10:55 10:55 10:55 WBC 9.47 (4.8-10.8) K/uL RBC 4.17 L (4.7-6.1) M/uL Hgb 13.0 L (14.0-18.0) g/dL Hct 38.8 L (42-52) % MCV 93.0 (80-100) fL MCH 31.2 (25-34) pg MCHC 33.5 (32-36) g/dL RDW Std Deviation 46.5 H (36.4-46.3) fL RDW Coeff of Ricky 13.6 (11.5-14.5) % Plt Count 103 L (130-400) K/uL MPV 11.0 H (7.4-10.4) fL Immature Gran % (Auto) 0.4 % Neut % (Auto) 86.5 % Lymph % (Auto) 6.8 % [place] % (Auto) 5.7 % Eos % (Auto) 0.5 % Baso % (Auto) 0.1 % Immature Gran # (Auto) 0.04 H (0.00-0.02) K/uL Neut # (Auto) 8.19 H (1.4-6.5) K/uL Lymph # (Auto) 0.64 L (1.2-3.4) K/uL [place] # (Auto) 0.54 (0.11-0.59) K/uL Eos # (Auto) 0.05 (0-0.5) K/uL Baso # (Auto) 0.01 (0-0.2) K/uL Platelet Estimate (Normal) PT 10.7 (9.0-12.0) Seconds INR 1.1 (0.9-1.1) Sodium 136 (136-145) mmol/L Potassium 3.6 (3.5-5.1) mmol/L Chloride 101 (98-107) mmol/L Carbon Dioxide 28 (21-32) mmol/L Anion Gap 7.0 (3-11) BUN 22 H (7-18) mg/dl Creatinine 0.93 (0.6-1.4) mg/dl Est Cr Clr Drug Dosing 81.7 ml/min Est GFR ( Amer) 92.1 Est GFR (Non-Af Amer) 79.5 BUN/Creatinine Ratio 23.7 H (10-20) Glucose 114 H (70-99) mg/dl Calcium 9.0 (8.5-10.1) mg/dl Total Bilirubin 3.0 H (0.2-1) mg/dl Direct Bilirubin (0-0.2) mg/dl AST 563 H (15-37) U/L ALT 424 H (12-78) U/L Alkaline Phosphatase 322 H (45-117) U/L Troponin I < 0.015 (0-0.045) ng/ml Total Protein 7.5 (6.4-8.2) gm/dl Albumin 3.7 (3.4-5.0) gm/dl Globulin 3.8 (2.5-4.0) gm/dl Albumin/Globulin Ratio 1.0 (0.9-2) Lipase 66420 H (73-393) U/L Urine Color Urine Appearance (Clear) Urine pH (4.5-7.5) Ur Specific [facility] (1.000-1.030) Urine Protein (Negative) Urine Glucose (UA) (Negative) Urine Ketones (Negative) Urine Blood (Negative) Urine Nitrite (Negative) Urine Bilirubin (Negative) Urine Urobilinogen (Negative) Ur Leukocyte Esterase (Negative) Urine RBC (0-4) /hpf Urine WBC (0-5) /hpf Ur Epithelial Cells (0-5) /lpf Urine Bacteria (Negative) Urine Yeast (None Prsent) 10/12/18 10/13/18 10/13/18 Range/Units 11:35 05:40 05:40 WBC 5.28 (4.8-10.8) K/uL RBC 3.66 L (4.7-6.1) M/uL Hgb 11.2 L (14.0-18.0) g/dL Hct 34.0 L (42-52) % MCV 92.9 (80-100) fL MCH 30.6 (25-34) pg MCHC 32.9 (32-36) g/dL RDW Std Deviation 46.1 (36.4-46.3) fL RDW Coeff of Ricky 13.6 (11.5-14.5) % Plt Count 82 L (130-400) K/uL MPV 10.3 (7.4-10.4) fL Immature Gran % (Auto) 0.4 % Neut % (Auto) 79.0 % Lymph % (Auto) 10.0 % [place] % (Auto) 7.0 % Eos % (Auto) 3.2 % Baso % (Auto) 0.4 % Immature Gran # (Auto) 0.02 (0.00-0.02) K/uL Neut # (Auto) 4.17 (1.4-6.5) K/uL Lymph # (Auto) 0.53 L (1.2-3.4) K/uL [place] # (Auto) 0.37 (0.11-0.59) K/uL Eos # (Auto) 0.17 (0-0.5) K/uL Baso # (Auto) 0.02 (0-0.2) K/uL Platelet Estimate Decreased (Normal) PT (9.0-12.0) Seconds INR (0.9-1.1) Sodium 140 (136-145) mmol/L Potassium 4.1 (3.5-5.1) mmol/L Chloride 109 H (98-107) mmol/L Carbon Dioxide 26 (21-32) mmol/L Anion Gap 5.0 (3-11) BUN 14 (7-18) mg/dl Creatinine 0.96 (0.6-1.4) mg/dl Est Cr Clr Drug Dosing 78.4 ml/min Est GFR ( Amer) 88.6 Est GFR (Non-Af Amer) 76.5 BUN/Creatinine Ratio 14.6 (10-20) Glucose 104 H (70-99) mg/dl Calcium 7.7 L (8.5-10.1) mg/dl Total Bilirubin 1.3 H D (0.2-1) mg/dl Direct Bilirubin 0.5 H (0-0.2) mg/dl AST 175 H (15-37) U/L ALT 289 H (12-78) U/L Alkaline Phosphatase 223 H (45-117) U/L Troponin I (0-0.045) ng/ml Total Protein 6.4 (6.4-8.2) gm/dl Albumin 2.9 L (3.4-5.0) gm/dl Globulin (2.5-4.0) gm/dl Albumin/Globulin Ratio (0.9-2) Lipase 836 H (73-393) U/L Urine Color Dark Yellow Urine Appearance Clear (Clear) Urine pH 6.5 (4.5-7.5) Ur Specific [facility] 1.018 (1.000-1.030) Urine Protein Negative (Negative) Urine Glucose (UA) Negative (Negative) Urine Ketones Negative (Negative) Urine Blood Negative (Negative) Urine Nitrite Positive H (Negative) Urine Bilirubin 1+ H (Negative) Urine Urobilinogen Negative (Negative) Ur Leukocyte Esterase 2+ H (Negative) Urine RBC 0-4 (0-4) /hpf Urine WBC >30 H (0-5) /hpf Ur Epithelial Cells 0-5 (0-5) /lpf Urine Bacteria Negative (Negative) Urine Yeast Budding w/ Hyphae H (None Prsent) Imaging Data Radiologist's Impression: Radiology results as stated below per my review and the radiologist's interpretation: ABDOMEN AND PELVIS CT WITH IV CONTRAST CT DOSE: 965.86 mGycm HISTORY: Acute lower abdominal pain. History of prostate carcinoma. lower abd pain TECHNIQUE: Multiaxial CT images of the abdomen and pelvis were performed following the use of intravenous contrast. A dose lowering technique was utilized adhering to the principles of ALARA. COMPARISON STUDY: CT abdomen and pelvis 07/08/2018. FINDINGS: Calcified granuloma of the basal left lower lobe. Mild subsegmental bibasilar atelectasis/scarring. There is no pneumatosis or pneumoperitoneum. Imaged inferior cardiac chambers are enlarged with partially imaged pacer wires and coronary arterial calcifications. Prior median sternotomy. Nonspecific enhancement about the gallbladder wall is noted with subcentimeter areas of increased density noted along the dependent gallbladder lumen. No significant gallbladder wall thickening. There is mild enhancement about the extrahepatic biliary tree. Suggestion of trace pericholecystic edema with calcification wall thickening. There are a few subcentimeter hypodense lesions noted about the liver measuring up to 8 mm on image 121 series 3 which appear unchanged from comparison study. There is patency of the hepatic and portal veins. Spleen is mildly enlarged, 14.2 cm. The pancreas and adrenal glands are unremarkable. There are a few punctate nonobstructing calculi noted about the left kidney. Mild nonspecific bilateral perinephric stranding. No ureteral calculi or obstructive uropathy. Decompressed urinary bladder with Ann catheter in place. Multiple phleboliths of the pelvis. Small fat filled bilateral hernias. Findings suggest prior prostatectomy. Calcifications of the vas deferens. Trace free pelvic fluid. Extensive calcification of the abdominal aorta with ectasia measuring 2.9 x 2.3 cm involving the infrarenal segment. These findings appear unchanged. IVC is unremarkable. No adenopathy. Moderate sized sliding-type hiatal hernia, partially imaged. Nonspecific prominent lymph nodes adjacent to the proximal stomach measure up to 8 mm. No small bowel obstruction. Mild wall thickening of the rectum suggested. Colonic diverticulosis without acute diverticulitis. The majority of the colon is decompressed. Normal appendix. Soft tissues are unremarkable. Demineralized appearance of the bones. Fusion of the SI joints. Multilevel spondylitic spurring with facet arthropathy. No suspicious lytic or blastic bony lesions. Unchanged anterior endplate compression deformity of the L1 vertebral body. Multilevel Schmorl's nodes. IMPRESSION: 1. Mild circumferential enhancement about the gallbladder wall is noted in conjunction with enhancement about the extrahepatic biliary tree. Additionally, there is minimal layering gallbladder sludge or cholelithiasis within the gallbladder lumen along with trace pericholecystic edema. Correlate clinically to exclude early developing acute cholecystitis or cholangitis. 2. No bowel obstruction. 3. Suggestion of mild rectal wall thickening. Correlate with clinical exam. 4. Colonic diverticulosis without acute diverticulitis. 5. Moderate hiatal hernia. 6. Punctate left nephrolithiasis. 7. Additional findings as above. Electronically signed by: Armando Willard M.D. 10/12/2018 12:24 PM XR chest 1V portable HISTORY: Generalized abdominal pain. COMPARISON: Chest 10/06/2017. FINDINGS: Left-sided dual-chamber pacemaker. Postoperative changes. No pneumothorax. No pleural effusions. No evidence for pulmonary edema. No new focal lung consolidations to suggest pneumonia. Retrocardiac density favors a hiatus hernia. IMPRESSION: 1. No acute process within the chest. 2. Stable mild cardiomegaly. 3. Hiatus hernia. Electronically signed by: Sergio Allred M.D. 10/12/2018 11:55 AM ECG Data Attestation: I personally reviewed and interpreted this ECG as follows: Indication: abdominal pain Rate (beats per minute): 73 Rhythm: other (atrially paced) Findings: + PVC Comparison ECG Date: from (10/06/17) Change: no significant change Blood Pressure Blood Pressure Findings: Elevated blood pressure Blood Pressure Disposition: Referred to patients primary care provider MDM Narrative The patient is a 78-year-old male who presented to the emergency department with an episode of abdominal pain. The patient's pain significantly improved at his presentation. He did have upper abdominal discomfort on physical exam. The patient has a chronic indwelling Ann. I discussed the patient's laboratory and radiographic studies with him. He was treated with IV fluids. He was also given IV antibiotics for presumed cholecystitis noted on CT the abdomen and pelvis. His laboratory results also appear to be consistent with obstructive jaundice elevated liver function studies and pancreatitis. I discussed the patient's condition with the on-call [facility] hospitalist. I also discussed his case with the unassigned gastroenterology group. They have all agreed to evaluate the patient in the emergency department for further management and disposition. The patient was feeling much better on subsequent reevaluation. He was also treated with proton pump inhibitors and H2 blockers. Impression & Plan Cholecystitis, Obstructive jaundice, Pancreatitis Discharge Plan Visit Data *Final* Discharge Date/Time: 10/12/18 14:58 Chief Complaint: Abdominal Pain Stated Complaint: Lower ABD pain. Other Complaint: Nausea ED Provider: Cortes Lerner Discharge Problem: Cholecystitis, Obstructive jaundice, Pancreatitis Patient Disposition: Admitted As Inpatient Discharge Instructions Interventions: ED Discharge Assessment Last Done: 10/12/18 14:58 The scribe's documentation has been prepared under my direction and personally reviewed by me in its entirety. I confirm that the note above accurately reflects all work, treatment, procedures, and medical decision making performed by me.
[2018-10-12 11:08] LABS: Basophils # (auto) 0.01 K/uL (0-0.2); Basophils % (auto) 0.1 %; Eosinophils # (auto) 0.05 K/uL (0-0.5); Eosinophils % (auto) 0.5 %; Hematocrit (blood only) 38.8 % (42-52); Immature Granulocytes # (auto) 0.04 K/uL (0.00-0.02); Immature Granulocytes % (auto) 0.4 %; Lymphocytes # (auto) 0.64 K/uL (1.2-3.4); Lymphocytes % (auto) 6.8 %; Mean Corpuscular Hgb Conc 33.5 g/dL (32-36); Monocytes # (auto) 0.54 K/uL (0.11-0.59); Monocytes % (auto) 5.7 %; Neutrophils # (auto) 8.19 K/uL (1.4-6.5); Neutrophils % (auto) 86.5 %; Platelet Count 103 K/uL (130-400); RDW Coefficient of Variation 13.6 % (11.5-14.5); RDW Standard Deviation 46.5 fL (36.4-46.3); Red Blood Count 4.17 M/uL (4.7-6.1); White Blood Count 9.47 K/uL (4.8-10.8)
[2018-10-12 11:15] LABS: INR 1.1 (0.9-1.1); Prothrombin Time 10.7 Seconds (9.0-12.0)
[2018-10-12 11:24] LABS: Alanine Aminotransferase 424 U/L (12-78); Albumin Level 3.7 gm/dl (3.4-5.0); Aspartate Aminotransferase 563 U/L (15-37); BUN Creatinine Ratio 23.7 (10-20); Blood Urea Nitrogen 22 mg/dl (7-18); Carbon Dioxide 28 mmol/L (21-32); Chloride 101 mmol/L (98-107); Creatinine Clr Calc Pharmacy 81.7 ml/min; Est GFR (African American) 92.1; Est GFR (Non-African American) 79.5; Glucose 114 mg/dl (70-99); Potassium 3.6 mmol/L (3.5-5.1); Sodium 136 mmol/L (136-145)
[2018-10-12 11:29] LABS: Alkaline Phosphatase 322 U/L (45-117); Globulin 3.8 gm/dl (2.5-4.0); Total Protein 7.5 gm/dl (6.4-8.2); Troponin I < 0.015 ng/ml (0-0.045)
[2018-10-12 11:56] LABS: Appearance Urine Clear (Clear); Color Urine Dark Yellow; Glucose Urine UA Negative (Negative); Ketones Urine Negative (Negative); Leukocyte Esterase Urine 2+ (Negative); Nitrite Urine Positive (Negative); Protein Urine Negative (Negative); Specific Gravity Urine 1.018 (1.000-1.030); Urobilinogen Urine Negative (Negative); pH Urine 6.5 (4.5-7.5)
--- NOTE | 2018-10-12 11:56 | XRay Report ---
XR chest 1V portable HISTORY: Generalized abdominal pain. COMPARISON: Chest 10/06/2017. FINDINGS: Left-sided dual-chamber pacemaker. Postoperative changes. No pneumothorax. No pleural effus ions. No evidence for pulmonary edema. No new focal lung consolidations to suggest pneumonia. Retroca rdiac density favors a hiatus hernia. IMPRESSION: 1. No acute process within the chest. 2. Stable mild cardiomegaly. 3. Hiatus hernia. Electronically signed by: Sergio Allred M.D. 10/12/2018 11:55 AM
[2018-10-12] MEDS ORDERED: IOVERSOL 100ml IV PRN (11:58)
[2018-10-12 12:03] LABS: Bilirubin Urine 1+ (Negative)
[2018-10-12 12:05] LABS: Ictotest Urine Positive (Negative)
[2018-10-12 12:21] LABS: RBC Urine 0-4 /hpf (0-4); WBC Urine >30 /hpf (0-5)
[2018-10-12 12:22] LABS: Bacteria Urine Negative (Negative)
--- NOTE | 2018-10-12 12:25 | CT Scan Report ---
ABDOMEN AND PELVIS CT WITH IV CONTRAST CT DOSE: 965.86 mGycm HISTORY: Acute lower abdominal pain. History of prostate carcinoma. lower abd pain TECHNIQUE: Multiaxial CT images of the abdomen and pelvis were performed following the use of intrave nous contrast. A dose lowering technique was utilized adhering to the principles of ALARA. COMPARISON STUDY: CT abdomen and pelvis 07/08/2018. FINDINGS: Calcified granuloma of the basal left lower lobe. Mild subsegmental bibasilar atelectasis/scarring. T here is no pneumatosis or pneumoperitoneum. Imaged inferior cardiac chambers are enlarged with partia lly imaged pacer wires and coronary arterial calcifications. Prior median sternotomy. Nonspecific enhancement about the gallbladder wall is noted with subcentimeter areas of increased den sity noted along the dependent gallbladder lumen. No significant gallbladder wall thickening. There i s mild enhancement about the extrahepatic biliary tree. Suggestion of trace pericholecystic edema wit h calcification wall thickening. There are a few subcentimeter hypodense lesions noted about the live r measuring up to 8 mm on image 121 series 3 which appear unchanged from comparison study. There is p atency of the hepatic and portal veins. Spleen is mildly enlarged, 14.2 cm. The pancreas and adrenal glands are unremarkable. There are a few punctate nonobstructing calculi noted about the left kidney. Mild nonspecific bilater al perinephric stranding. No ureteral calculi or obstructive uropathy. Decompressed urinary bladder w ith Ann catheter in place. Multiple phleboliths of the pelvis. Small fat filled bilateral hernias. Findings suggest prior prostatectomy. Calcifications of the vas deferens. Trace free pelvic fluid. Extensive calcification of the abdominal aorta with ectasia measuring 2.9 x 2.3 cm involving the infr arenal segment. These findings appear unchanged. IVC is unremarkable. No adenopathy. Moderate sized s liding-type hiatal hernia, partially imaged. Nonspecific prominent lymph nodes adjacent to the proxim al stomach measure up to 8 mm. No small bowel obstruction. Mild wall thickening of the rectum suggest ed. Colonic diverticulosis without acute diverticulitis. The majority of the colon is decompressed. N ormal appendix. Soft tissues are unremarkable. Demineralized appearance of the bones. Fusion of the S I joints. Multilevel spondylitic spurring with facet arthropathy. No suspicious lytic or blastic bony lesions. Unchanged anterior endplate compression deformity of the L1 vertebral body. Multilevel Schm orl's nodes. IMPRESSION: 1. Mild circumferential enhancement about the gallbladder wall is noted in conjunction with enhanceme nt about the extrahepatic biliary tree. Additionally, there is minimal layering gallbladder sludge or cholelithiasis within the gallbladder lumen along with trace pericholecystic edema. Correlate clinic ally to exclude early developing acute cholecystitis or cholangitis. 2. No bowel obstruction. 3. Suggestion of mild rectal wall thickening. Correlate with clinical exam. 4. Colonic diverticulosis without acute diverticulitis. 5. Moderate hiatal hernia. 6. Punctate left nephrolithiasis. 7. Additional findings as above. Electronically signed by: Armando Willard M.D. 10/12/2018 12:24 PM
[2018-10-12] MEDS ORDERED: PIPERACILL/TAZOBAC CONSULT ACTIVE PRN ×2 (13:19→15:42)
[2018-10-12] MEDS ORDERED: PIPERACILLIN/TAZOBACTAM 4.5 GM/120 ML BAG IV ONE (13:19)
[2018-10-12] MEDS ORDERED: PANTOprazole 40 MG in SYRINGE 0 ML IV ONE (13:29)
[2018-10-12] MEDS ORDERED: FAMOTIDINE 20MG/5ML IV PUSH IV STA (13:29)
--- NOTE | 2018-10-12 14:22 | History & Physical Report ---
Date of Service October 12, 2018 Assessment & Plan (1) Cholecystitis: acute cholecystitis on CT, has elevated in bili, alk phos and AST/ALT vitals stable will treat with Zosyn consult GI and general surgery NPO NSS at 200cc/hr (2) Pancreatitis: lipase elevated at 17k, epigastric pain and gall stones will keep NPO, NSS + 20mEq of K at 200cc/hr consult GI for recommendations on ERCP repeat lipase and LFT tomorrow (3) CAD (coronary artery disease): no significant history since CABG in 2012 no recent chest pain or pressure continue aspirin, continue Metoprolol (4) H/O atrial flutter: one episode in the past, has a pacemaker cardiology has not anticoagulated due to hematuria currently in sinus rhythm, has some ectopy on monitor continue metoprolol (5) Dehydration: clinically dry treat with aggressive IV hydration (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 Santana and urology at [facility] hold Macrobid for now since he will be on Zosyn History of Present Illness Chief Complaint: I have pain in my abdomen Primary Care Provider: Trae Garza 78 yo male with history of CAD, s/p CABG and pacemaker as well as history of bladder fistula and ongoing mccormack catheter, presented to the ED today c/o abdominal pain. He said he does not normally have abdominal pain. He noticed pain yesterday while at [facility] in the morning. The pain was around his umbilicus and lasted for 20 minutes. He did not have any nausea or vomiting at that time. The pain went away on it's own, nothing made it better or worse. He did not have much of an appetite last night or this morning. The pain returned this morning, more severe and was associated with vomiting. He vomited twice, all bile and gastric contents. He moved his bowels this morning , normal BM, no diarrhea. Again, he has never had pain like this before. Prior to yesterday he has been in a state of good health. No fever/chills or sweats, weight stable. He has ongoing issue with bladder fistula. Followed locally with Dr. Santana as well as [facility]. Surgery was discussed but opted for conservative route with fistula for 3 months. Per patient's , recent scans have showed the fistula closing. The mccormack would come out in 10 days. He has been on macrobid to suppress infection, but he had a UTI recently that cleared up with Ceftin. He has no symptoms with the mccormack. He has a cardiac history of heart catheterization in 2012 that was complicated by RCA rupture and SD. Was flown to [facility], had triple bypass and pacemaker. He follows locally with Dr. Blackwell. He had an echo in August 2017 that showed EF of 55-60% with grade II diastolic dysfunction. He had a Lexiscan stress test in February 2018, only achieved 68% max HR. No active cardiac symptoms. No chest pain, no orthopnea, no dyspnea on exertion. In the ED the lipase was elevated at 17k and all LFT were elevated, bili 3.0 and alk phos 322 suggesting obstructive process. WBC normal at 9.4. CT abdomen and pelvis showed gall stones and sludge, cholecystitis. No evidence of pancreatitis on imaging. [facility] will see the patient in the ED, determine if he needs ERCP or further imaging. Allergies Allergy/AdvReac Type Severity Reaction Status Date / Time oxycodone [From OxyContin] Allergy Unknown Hallucinati Verified 10/12/18 12:29 ng Sulfa (Sulfonamide Allergy Unknown rash Verified 10/12/18 12:29 Antibiotics) lisinopril AdvReac Mild cough Verified 10/12/18 12:29 ciprofloxacin [From Cipro] AdvReac Unknown see notes Verified 10/12/18 12:29 metoclopramide AdvReac Unknown Depression Verified 10/12/18 12:29 Home Medications Home Medications Medication Instructions Recorded Confirmed Type aspirin [Aspir-81] 81 mg PO QAM 06/19/18 10/12/18 History cholecalciferol (vitamin D3) 2,000 unit PO QAM 06/19/18 10/12/18 History [Vitamin D3] citalopram 10 mg PO QAM 06/19/18 10/12/18 History doxycycline hyclate 50 mg PO Q3D 06/19/18 10/12/18 History esomeprazole magnesium [Nexium] 40 mg PO HS 06/19/18 10/12/18 History ezetimibe-simvastatin [Vytorin 1 tab PO HS 06/19/18 10/12/18 History 10-40] hydrochlorothiazide 25 mg PO QAM 06/19/18 10/12/18 History isosorbide mononitrate 30 mg PO QAM 06/19/18 10/12/18 History losartan 25 mg PO QAM 06/19/18 10/12/18 History multivitamin [Multiple Vitamins] 1 tab PO QAM 06/19/18 10/12/18 History metoprolol tartrate 50 mg PO BID 09/04/18 10/12/18 History ondansetron 4 mg PO QID PRN 09/04/18 10/12/18 History nitrofurantoin monohyd/m-cryst 100 mg PO BID 09/15/18 10/12/18 History [Macrobid] oxybutynin chloride 5 mg PO TID PRN 09/16/18 10/12/18 History nystatin 1 appln TOP BID #15 gm 09/29/18 10/12/18 Rx triamcinolone acetonide 1 appln TOP BID #15 gm 09/29/18 10/12/18 Rx Past Med/Surg History Medical History A-fib INCIDENTAL A.FIB/A. 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 CABG X3 Hyperlipidemia Kyphosis Pulmonary HTN RVSP 40-50MMHG Rosacea SMA stenosis ASYMPTOMATIC; "INCIDENTAL FINDING" PER CARDIO Sleep apnea CPAP UTI (urinary tract infection) RE-OCCURING , ED 09/04/18 - CATH CHANGE AND AWAITING URINE CULTURE Surgical History History of arthroplasty of right knee History of cardiac cath (HX MULTIPLE CATHS/TOTAL OF 2 STENTS) MOST RECENT...03/25/18 ABNORMAL STRESS TEST/NO STENTS History of robot-assisted laparoscopic radical prostatectomy Hx of bilateral cataract extraction WITH LASIK PROCEDURE Hx of colonoscopy Hx of heart bypass surgery S/P CABG X 3 (2012) Hx of tooth extraction Family History Other HTN (hypertension) Social History Current Living Situation: Spouse Feels Safe at Home: Yes Smoking Status: Former smoker Tobacco Type: cigarettes Cigarettes per Day: QUIT 30 YRS AGO. Smoked 1ppd x 20 years. Hx Alcohol Use: Yes Alcohol type: hard liquor Alcohol Intake Frequency: 0-2 drinks per day Hx Substance Use: No Beliefs That Will Affect Care: Mosque Mosque Beliefs: CONFUCIANISM Preferred Language: Montenegrin Review of Systems All systems reviewed & are unremarkable except as noted in HPI & below Gastrointestinal: + abdominal pain, + nausea and + vomiting; no constipation and no diarrhea/loose stools Physical Exam 2 Vital Signs (Past 24 Hours): Last Vital Signs Temp 37 C 10/12/18 10:50 Pulse 84 10/12/18 12:50 Resp 20 10/12/18 12:50 BP 152/87 H 10/12/18 11:04 Pulse Ox 95 10/12/18 11:40 Constitutional: WD/WN, vitals as above Eyes: PERRL, conjunctivae normal, anicteric sclerae ENMT: external ear and nose normal, oropharynx normal Neck: trachea midline, no thyromegaly Respiratory: normal respiratory effort, lungs clear to auscultation Cardiovascular: RRR, no murmur, no edema Gastrointestinal (Abdomen): normal bowel sounds, soft, nontender, no hepatosplenomegaly Musculoskeletal: no cyanosis or clubbing, extremities motor strength 5/5 Skin: no rashes, warm and dry Neurologic: patellar DTR's 2+ bilat, sensation intact and PERRL, EOMI, accommodation nl, no face palsy, no dysarthria Psychiatric: A+Ox3, euthymic affect Lymphatic: no cervical or axillary lymphadenopathy Results & Data Laboratory Results Laboratory Results - last 24 hr 10/12/18 10/12/18 10/12/18 10:55 10:55 10:55 WBC 9.47 RBC 4.17 L Hgb 13.0 L Hct 38.8 L MCV 93.0 MCH 31.2 MCHC 33.5 RDW Std Deviation 46.5 H RDW Coeff of Ricky 13.6 Plt Count 103 L MPV 11.0 H Immature Gran % (Auto) 0.4 Neut % (Auto) 86.5 Lymph % (Auto) 6.8 [place] % (Auto) 5.7 Eos % (Auto) 0.5 Baso % (Auto) 0.1 Immature Gran # (Auto) 0.04 H Neut # (Auto) 8.19 H Lymph # (Auto) 0.64 L [place] # (Auto) 0.54 Eos # (Auto) 0.05 Baso # (Auto) 0.01 PT 10.7 INR 1.1 Sodium 136 Potassium 3.6 Chloride 101 Carbon Dioxide 28 Anion Gap 7.0 BUN 22 H Creatinine 0.93 Est Cr Clr Drug Dosing 81.7 Est GFR ( Amer) 92.1 Est GFR (Non-Af Amer) 79.5 BUN/Creatinine Ratio 23.7 H Glucose 114 H Calcium 9.0 Total Bilirubin 3.0 H AST 563 H ALT 424 H Alkaline Phosphatase 322 H Troponin I < 0.015 Total Protein 7.5 Albumin 3.7 Globulin 3.8 Albumin/Globulin Ratio 1.0 Lipase 20588 H Urine Color Urine Appearance Urine pH Ur Specific [place] Urine Protein Urine Glucose (UA) Urine Ketones Urine Blood Urine Nitrite Urine Bilirubin Urine Urobilinogen Ur Leukocyte Esterase Urine RBC Urine WBC Ur Epithelial Cells Urine Bacteria Urine Yeast 10/12/18 11:35 WBC RBC Hgb Hct MCV MCH MCHC RDW Std Deviation RDW Coeff of Ricky Plt Count MPV Immature Gran % (Auto) Neut % (Auto) Lymph % (Auto) [place] % (Auto) Eos % (Auto) Baso % (Auto) Immature Gran # (Auto) Neut # (Auto) Lymph # (Auto) [place] # (Auto) Eos # (Auto) Baso # (Auto) PT INR Sodium Potassium Chloride Carbon Dioxide Anion Gap BUN Creatinine Est Cr Clr Drug Dosing Est GFR ( Amer) Est GFR (Non-Af Amer) BUN/Creatinine Ratio Glucose Calcium Total Bilirubin AST ALT Alkaline Phosphatase Troponin I Total Protein Albumin Globulin Albumin/Globulin Ratio Lipase Urine Color Dark Yellow Urine Appearance Clear Urine pH 6.5 Ur Specific [place] 1.018 Urine Protein Negative Urine Glucose (UA) Negative Urine Ketones Negative Urine Blood Negative Urine Nitrite Positive H Urine Bilirubin 1+ H Urine Urobilinogen Negative Ur Leukocyte Esterase 2+ H Urine RBC 0-4 Urine WBC >30 H Ur Epithelial Cells 0-5 Urine Bacteria Negative Urine Yeast Budding w/ Hyphae H Diagnostic Findings CT ABDOMEN PELVIS IMPRESSION: 1. Mild circumferential enhancement about the gallbladder wall is noted in conjunction with enhancement about the extrahepatic biliary tree. Additionally, there is minimal layering gallbladder sludge or cholelithiasis within the gallbladder lumen along with trace pericholecystic edema. Correlate clinically to exclude early developing acute cholecystitis or cholangitis. 2. No bowel obstruction. 3. Suggestion of mild rectal wall thickening. Correlate with clinical exam. 4. Colonic diverticulosis without acute diverticulitis. 5. Moderate hiatal hernia. 6. Punctate left nephrolithiasis. 7. Additional findings as above. Code Status & VTE Plan Code Status full code _ (1) Pancreatitis Acute pancreatitis complication: no infection or necrosis Chronicity: acute Pancreatitis type: unspecified pancreatitis type Qualified Code(s): K85.90 - Acute pancreatitis without necrosis or infection, unspecified
[2018-10-12] MEDS ORDERED: ACETAMINOPHEN 325 MG TAB PO PRN (15:42)
[2018-10-12] MEDS ORDERED: OXYBUTYNIN CHLORIDE 5 MG TAB PO PRN (15:42)
[2018-10-12] MEDS ORDERED: MoRPHine SULFATE 4 MG/ML 1 ML CARP\\VIAL IV PRN ×2 (15:42)
[2018-10-12] MEDS ORDERED: ONDANSETRON INJ 2 MG/ML 2 ML VIAL IV PRN (15:42)
--- NOTE | 2018-10-12 16:08 | Gastrointestinal Consultation ---
Date of Consultation October 12, 2018 Assessment & Plan (1) Pancreatitis: Pt is a 78 y/o male w RUQ abd pain w N/V, elevated LFTs, Lipase, CT evidence of enhancement about gallbladder wall and extrahepatic biliary tree, gallstones, sludge suspicious for developing cholecystitis or cholangitis. - Keep NPO - Obtain MRCP to r/o choledocholithiasis - IVF bolus and keep at rate of 150ml/hr (preferably LR) - Symptomatic managment - Consult surgery Attg add: I interviewed and examined pt, reviewed chart and labs. Pt with abrupt onset epigastric pain, labs show increased lfts' bili 3, lipase markeldy increased. Ct shows evidence of cholecystitis, mild enhancement around CBD, no mention of zahra dil. Similar episode x 3 in the past week. At present, hungry and pain free. Will plan MRCP, fluids, abx, surgery consult. ERCP if MRCP shows stones or if bili rises tomorrow. Present on Admission?: Yes History of Present Illness Reason for Consultation: Possible gallstone pancreatitis Requesting Physician: Dr. Fermin Marcos Attending Physician: Dr. Mariya Bone History of Present Illness Pt is a 78 yo male with history of CAD, s/p CABG and pacemaker, prostate ca s/p protatectomy and history of bladder fistula and ongoing mccormack catheter, presented to the ED today c/o abdominal pain. Pain started on RUQ area radiating to LUQ not associated w fever, chills, but did have a bit n/v today after trying to drink some soda. He had this similar pain last week but again yesterday. Denies it happening post prandially Upon evaluation noted to have new LFT elevation: Tbili 3, AST 563, ALT 424, AP 322, Lipase 17K. CT abd/pelvis showed mild circumferential enhancement about the gallbladder wall is noted in conjunction with enhancement about the extrahepatic biliary tree. Additionally, there is minimal layering gallbladder sludge or cholelithiasis within the gallbladder lumen along with trace pericholecystic edema. Correlate clinically to exclude early developing acute cholecystitis or cholangitis. There was no bowel obstruction. + diverticulosis w /o diverticulitis, mild rectal wall thickening, colonic diverticulosis w/o diverticulitis, moderate hiatal hernia, L nephrolithiasis. Allergies Allergy/AdvReac Type Severity Reaction Status Date / Time oxycodone [From OxyContin] Allergy Unknown Hallucinati Verified 10/12/18 12:29 ng Sulfa (Sulfonamide Allergy Unknown rash Verified 10/12/18 12:29 Antibiotics) lisinopril AdvReac Mild cough Verified 10/12/18 12:29 ciprofloxacin [From Cipro] AdvReac Unknown see notes Verified 10/12/18 12:29 metoclopramide AdvReac Unknown Depression Verified 10/12/18 12:29 Home Medications Home Medications Medication Instructions Recorded Confirmed Type aspirin [Aspir-81] 81 mg PO QAM 06/19/18 10/12/18 History cholecalciferol (vitamin D3) 2,000 unit PO QAM 06/19/18 10/12/18 History [Vitamin D3] citalopram 10 mg PO QAM 06/19/18 10/12/18 History doxycycline hyclate 50 mg PO Q3D 06/19/18 10/12/18 History esomeprazole magnesium [Nexium] 40 mg PO HS 06/19/18 10/12/18 History ezetimibe-simvastatin [Vytorin 1 tab PO HS 06/19/18 10/12/18 History 10-40] hydrochlorothiazide 25 mg PO QAM 06/19/18 10/12/18 History isosorbide mononitrate 30 mg PO QAM 06/19/18 10/12/18 History losartan 25 mg PO QAM 06/19/18 10/12/18 History multivitamin [Multiple Vitamins] 1 tab PO QAM 06/19/18 10/12/18 History metoprolol tartrate 50 mg PO BID 09/04/18 10/12/18 History ondansetron 4 mg PO QID PRN 09/04/18 10/12/18 History nitrofurantoin monohyd/m-cryst 100 mg PO BID 09/15/18 10/12/18 History [Macrobid] oxybutynin chloride 5 mg PO TID PRN 09/16/18 10/12/18 History nystatin 1 appln TOP BID #15 gm 09/29/18 10/12/18 Rx triamcinolone acetonide 1 appln TOP BID #15 gm 09/29/18 10/12/18 Rx Patient History Medical History A-fib INCIDENTAL A.FIB/A. 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 ON ANTICOAGULATION AT THIS TIME IN SETTING OF HEMATURIA - ONLY ONE EPISDOE OF AFIB IN HX Arrhythmia HX PAROXYSMAL A FIB/A FLUTTER/NSVT/FREQUENT VENTRICULAR ECTOPY PER RECORDS CAD (coronary artery disease) S/P CABG X3 (2012) COPD (chronic obstructive pulmonary disease) STABLE Fistula BETWEEN BLADDER AND COLON/TO EVALUATE HEALING PROCESS WITH UPCOMING PROCEDURE GERD (gastroesophageal reflux disease) History of prostate cancer History of urinary incontinence Hx of cardiac pacemaker 09/26 SSS/HIGH GRADE AVB; [employer]; IMPLANTED 09/2017 LAST PACER CHECK= WEEK OF AUG 31, 2018 Hx of myocardial infarction DURING CATHERIZATION 2013 HAD NM... CABG X3 Hyperlipidemia Kyphosis Pulmonary HTN RVSP 40-50MMHG Rosacea SMA stenosis ASYMPTOMATIC; "INCIDENTAL FINDING" PER CARDIO Sleep apnea CPAP UTI (urinary tract infection) RE-OCCURING , ED 09/04/18 - CATH CHANGE AND AWAITING URINE CULTURE Surgical History History of arthroplasty of right knee History of cardiac cath (HX MULTIPLE CATHS/TOTAL OF 2 STENTS) MOST RECENT...03/25/18 ABNORMAL STRESS TEST/NO STENTS History of robot-assisted laparoscopic radical prostatectomy Hx of bilateral cataract extraction WITH LASIK PROCEDURE Hx of colonoscopy Hx of heart bypass surgery S/P CABG X 3 (2012) Hx of tooth extraction Family History Other HTN (hypertension) Social History Current Living Situation: Spouse Other Information That Helps Us Care for You: No Feels Safe at Home: Yes Safety Concerns: Feels Safe At This Time Smoking Status: Never smoker Tobacco Type: cigarettes Cigarettes per Day: QUIT 30 YRS AGO. Smoked 1ppd x 20 years. Hx Alcohol Use: Yes Alcohol type: hard liquor Alcohol Intake Frequency: 0-2 drinks per day Hx Substance Use: No Beliefs That Will Affect Care: None Communication Ability: Effective Seismograph Shooter Required: Yes Review of Systems Constitutional: as per Subjective / HPI Respiratory: no cough and no dyspnea Cardiovascular: no chest pain, no lightheadedness and no edema Gastrointestinal: + abdominal pain, + nausea and + vomiting; no heartburn and no change in stools Physical Exam 2 Vital Signs (Past 24 Hours): Last Vital Signs Temp 37 C 10/12/18 10:50 Pulse 85 10/12/18 14:50 Resp 15 10/12/18 14:50 BP 144/80 H 10/12/18 14:12 Pulse Ox 94 10/12/18 14:50 Constitutional: WD/WN, vitals as above well groomed, cooperative and comfortable Eyes: PERRL, conjunctivae normal, anicteric sclerae ENMT: external ear and nose normal, oropharynx normal Respiratory: normal respiratory effort, lungs clear to auscultation Cardiovascular: RRR, no murmur, no edema Gastrointestinal (Abdomen): normal bowel sounds, soft, nontender, no hepatosplenomegaly Skin: no rashes, warm and dry no jaundice Neurologic: Motor/Sensory: no asterixis Psychiatric: A+Ox3, euthymic affect Lymphatic: no lymphedema Results & Data Laboratory Results Laboratory Results - last 72 hr 10/12/18 10/12/18 10/12/18 10:55 10:55 10:55 WBC 9.47 RBC 4.17 L Hgb 13.0 L Hct 38.8 L MCV 93.0 MCH 31.2 MCHC 33.5 RDW Std Deviation 46.5 H RDW Coeff of Ricky 13.6 Plt Count 103 L MPV 11.0 H Immature Gran % (Auto) 0.4 Neut % (Auto) 86.5 Lymph % (Auto) 6.8 [place] % (Auto) 5.7 Eos % (Auto) 0.5 Baso % (Auto) 0.1 Immature Gran # (Auto) 0.04 H Neut # (Auto) 8.19 H Lymph # (Auto) 0.64 L [place] # (Auto) 0.54 Eos # (Auto) 0.05 Baso # (Auto) 0.01 PT 10.7 INR 1.1 Sodium 136 Potassium 3.6 Chloride 101 Carbon Dioxide 28 Anion Gap 7.0 BUN 22 H Creatinine 0.93 Est Cr Clr Drug Dosing 81.7 Est GFR ( Amer) 92.1 Est GFR (Non-Af Amer) 79.5 BUN/Creatinine Ratio 23.7 H Glucose 114 H Calcium 9.0 Total Bilirubin 3.0 H AST 563 H ALT 424 H Alkaline Phosphatase 322 H Troponin I < 0.015 Total Protein 7.5 Albumin 3.7 Globulin 3.8 Albumin/Globulin Ratio 1.0 Lipase 53365 H Urine Color Urine Appearance Urine pH Ur Specific [place] Urine Protein Urine Glucose (UA) Urine Ketones Urine Blood Urine Nitrite Urine Bilirubin Urine Urobilinogen Ur Leukocyte Esterase Urine RBC Urine WBC Ur Epithelial Cells Urine Bacteria Urine Yeast 10/12/18 11:35 WBC RBC Hgb Hct MCV MCH MCHC RDW Std Deviation RDW Coeff of Ricky Plt Count MPV Immature Gran % (Auto) Neut % (Auto) Lymph % (Auto) [place] % (Auto) Eos % (Auto) Baso % (Auto) Immature Gran # (Auto) Neut # (Auto) Lymph # (Auto) [place] # (Auto) Eos # (Auto) Baso # (Auto) PT INR Sodium Potassium Chloride Carbon Dioxide Anion Gap BUN Creatinine Est Cr Clr Drug Dosing Est GFR ( Amer) Est GFR (Non-Af Amer) BUN/Creatinine Ratio Glucose Calcium Total Bilirubin AST ALT Alkaline Phosphatase Troponin I Total Protein Albumin Globulin Albumin/Globulin Ratio Lipase Urine Color Dark Yellow Urine Appearance Clear Urine pH 6.5 Ur Specific [place] 1.018 Urine Protein Negative Urine Glucose (UA) Negative Urine Ketones Negative Urine Blood Negative Urine Nitrite Positive H Urine Bilirubin 1+ H Urine Urobilinogen Negative Ur Leukocyte Esterase 2+ H Urine RBC 0-4 Urine WBC >30 H Ur Epithelial Cells 0-5 Urine Bacteria Negative Urine Yeast Budding w/ Hyphae H Diagnostic Findings CT abd/pelvis as noted above. _ (1) Pancreatitis Acute pancreatitis complication: no infection or necrosis Chronicity: acute Pancreatitis type: unspecified pancreatitis type Qualified Code(s): K85.90 - Acute pancreatitis without necrosis or infection, unspecified
[2018-10-12] MEDS: NSS + 20MEQ KCL 20 MEQ/1,000 ML BAG IV SCH ×2 (16:39→21:14)
--- NOTE | 2018-10-12 19:41 | Surgery Consultation ---
Date of Consultation October 12, 2018 Assessment & Plan (1) Cholecystitis: will need cholecystectomy this admission for MRCP tomorrow +/- ERCP pending results. will follow along until ready for lap josh. (2) Obstructive jaundice: History of Present Illness Attending Physician: Fermin Marcos DO History of Present Illness 78 y/o patient with a 2 day history of abdominal pain with radiation to his back. +nausea. no emesis. w/u reveals cholelithiasis, early cholecystitis and elevated LFT's. feeling somewhat better this evening. Allergies Allergy/AdvReac Type Severity Reaction Status Date / Time oxycodone [From OxyContin] Allergy Unknown Hallucinati Verified 10/12/18 12:29 ng Sulfa (Sulfonamide Allergy Unknown rash Verified 10/12/18 12:29 Antibiotics) lisinopril AdvReac Mild cough Verified 10/12/18 12:29 ciprofloxacin [From Cipro] AdvReac Unknown see notes Verified 10/12/18 12:29 metoclopramide AdvReac Unknown Depression Verified 10/12/18 12:29 Home Medications Home Medications Medication Instructions Recorded Confirmed Type aspirin [Aspir-81] 81 mg PO QAM 06/19/18 10/12/18 History cholecalciferol (vitamin D3) 2,000 unit PO QAM 06/19/18 10/12/18 History [Vitamin D3] citalopram 10 mg PO QAM 06/19/18 10/12/18 History doxycycline hyclate 50 mg PO Q3D 06/19/18 10/12/18 History esomeprazole magnesium [Nexium] 40 mg PO HS 06/19/18 10/12/18 History ezetimibe-simvastatin [Vytorin 1 tab PO HS 06/19/18 10/12/18 History 10-40] hydrochlorothiazide 25 mg PO QAM 06/19/18 10/12/18 History isosorbide mononitrate 30 mg PO QAM 06/19/18 10/12/18 History losartan 25 mg PO QAM 06/19/18 10/12/18 History multivitamin [Multiple Vitamins] 1 tab PO QAM 06/19/18 10/12/18 History metoprolol tartrate 50 mg PO BID 09/04/18 10/12/18 History ondansetron 4 mg PO QID PRN 09/04/18 10/12/18 History nitrofurantoin monohyd/m-cryst 100 mg PO BID 09/15/18 10/12/18 History [Macrobid] oxybutynin chloride 5 mg PO TID PRN 09/16/18 10/12/18 History nystatin 1 appln TOP BID #15 gm 09/29/18 10/12/18 Rx triamcinolone acetonide 1 appln TOP BID #15 gm 09/29/18 10/12/18 Rx Patient History Medical History A-fib INCIDENTAL A.FIB/A. 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 ON ANTICOAGULATION AT THIS TIME IN SETTING OF HEMATURIA - ONLY ONE EPISDOE OF AFIB IN HX Arrhythmia HX PAROXYSMAL A FIB/A FLUTTER/NSVT/FREQUENT VENTRICULAR ECTOPY PER RECORDS CAD (coronary artery disease) S/P CABG X3 (2012) COPD (chronic obstructive pulmonary disease) STABLE Fistula BETWEEN BLADDER AND COLON/TO EVALUATE HEALING PROCESS WITH UPCOMING PROCEDURE GERD (gastroesophageal reflux disease) History of prostate cancer History of urinary incontinence Hx of cardiac pacemaker 09/26 SSS/HIGH GRADE AVB; [employer]; IMPLANTED 09/2017 LAST PACER CHECK= WEEK OF AUG 31, 2018 Hx of myocardial infarction DURING CATHERIZATION 2012 HAD CO... CABG X3 Hyperlipidemia Kyphosis Pulmonary HTN RVSP 40-50MMHG Rosacea SMA stenosis ASYMPTOMATIC; "INCIDENTAL FINDING" PER CARDIO Sleep apnea CPAP UTI (urinary tract infection) RE-OCCURING , ED 09/04/18 - CATH CHANGE AND AWAITING URINE CULTURE Surgical History History of arthroplasty of right knee History of cardiac cath (HX MULTIPLE CATHS/TOTAL OF 2 STENTS) MOST RECENT...03/25/18 ABNORMAL STRESS TEST/NO STENTS History of robot-assisted laparoscopic radical prostatectomy Hx of bilateral cataract extraction WITH LASIK PROCEDURE Hx of colonoscopy Hx of heart bypass surgery S/P CABG X 3 (2012) Hx of tooth extraction Family History Other HTN (hypertension) Social History Current Living Situation: Spouse Other Information That Helps Us Care for You: No Feels Safe at Home: Yes Safety Concerns: Feels Safe At This Time Smoking Status: Never smoker Tobacco Type: cigarettes Cigarettes per Day: QUIT 30 YRS AGO. Smoked 1ppd x 20 years. 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 Physical Exam 2 Vital Signs (Past 24 Hours): Last Vital Signs Temp 36.7 C 10/12/18 19:31 Pulse 75 10/12/18 19:31 Resp 20 10/12/18 19:31 BP 142/70 H 10/12/18 19:31 Pulse Ox 94 10/12/18 19:31
[2018-10-12] MEDS: PIPERACILLIN/TAZOBACTAM 3.375 GM in DEXTROSE 5% 100 ML IV SCH (20:00)
[2018-10-12] MEDS: TRIAMCINOLONE ACET 0.1% CR 15 GM TUBE TOP SCH (21:13)
[2018-10-12] MEDS: NYSTATIN CR 15 GM TUBE EXT SCH (21:14)
[2018-10-12] MEDS: METOPROLOL TARTRATE 50 MG TAB PO SCH (21:14)
[2018-10-13] MEDS: NSS + 20MEQ KCL 20 MEQ/1,000 ML BAG IV SCH ×4 (04:15→22:28)
[2018-10-13] MEDS: PIPERACILLIN/TAZOBACTAM 3.375 GM in DEXTROSE 5% 100 ML IV SCH ×3 (05:09→19:53)
[2018-10-13 05:56] LABS: Hemoglobin 11.2 g/dL (14.0-18.0); Mean Corpuscular Hgb Conc 32.9 g/dL (32-36); Mean Corpuscular Volume 92.9 fL (80-100); RDW Coefficient of Variation 13.6 % (11.5-14.5); RDW Standard Deviation 46.1 fL (36.4-46.3); Red Blood Count 3.66 M/uL (4.7-6.1); White Blood Count 5.28 K/uL (4.8-10.8)
[2018-10-13 06:27] LABS: Basophils # (auto) 0.02 K/uL (0-0.2); Basophils % (auto) 0.4 %; Eosinophils # (auto) 0.17 K/uL (0-0.5); Eosinophils % (auto) 3.2 %; Immature Granulocytes # (auto) 0.02 K/uL (0.00-0.02); Immature Granulocytes % (auto) 0.4 %; Lymphocytes # (auto) 0.53 K/uL (1.2-3.4); Mean Platelet Volume 10.3 fL (7.4-10.4); Monocytes # (auto) 0.37 K/uL (0.11-0.59); Neutrophils # (auto) 4.17 K/uL (1.4-6.5); Platelet Count 82 K/uL (130-400)
[2018-10-13 06:36] LABS: Albumin Level 2.9 gm/dl (3.4-5.0); BUN Creatinine Ratio 14.6 (10-20); Bilirubin Direct 0.5 mg/dl (0-0.2); Calcium 7.7 mg/dl (8.5-10.1); Creatinine Clr Calc Pharmacy 78.4 ml/min; Est GFR (African American) 88.6; Est GFR (Non-African American) 76.5; Potassium 4.1 mmol/L (3.5-5.1)
[2018-10-13 06:38] LABS: Bilirubin,Total 1.3 mg/dl (0.2-1); Total Protein 6.4 gm/dl (6.4-8.2)
[2018-10-13] MEDS: NYSTATIN CR 15 GM TUBE EXT SCH ×2 (07:32→20:04)
[2018-10-13] MEDS: TRIAMCINOLONE ACET 0.1% CR 15 GM TUBE TOP SCH ×2 (07:32→20:04)
--- NOTE | 2018-10-13 07:37 | Hospitalist Progress Note ---
Date of Service October 13, 2018 Assessment & Plan (1) Cholecystitis: acute cholecystitis on CT, has elevated in bili, alk phos and AST/ALT Zosyn, consult GI and general surgery waiting for possible do procedure of an ERCP stone extraction and cholecystectomy on 10/14 (2) Pancreatitis: lipase elevated, epigastric pain and gall stones consult GI for recommendations on ERCP (3) CAD (coronary artery disease): no significant history since CABG in 2012 no recent chest pain or pressure continue aspirin, continue Metoprolol (4) H/O atrial flutter: one episode in the past, has a pacemaker cardiology has not anticoagulated due to hematuria/bladder fistulae currently in sinus rhythm, continue metoprolol (5) Dehydration: clinically dry IV hydration- (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 Santana and urology at [facility] hold Macrobid for now since he will be on Zosyn Subjective Patient feels markedly improved however MRCP did show concern for persistent stone in coordination with possible ERCP stone retrieval and coordinate a cholecystectomy is being undertaken by gastroneurology and surgery himself however feels much better his laboratory numbers have improved Review of Systems ROS: well nourished well developed. No double vision blurry vision No problems with speech or swallowing No palpitations, chest pain or pressure No Wheezing or breathing issues mild abdominal pain but no nausea vomiting diarrhea changes in appetite or weight No burning urine urine frequency or changes in color No focal joint pain or muscle pain No skin rashes or oral lesions No unusual bruising or bleeding No focused back pain or numbness or loss of strength No changes in memory or confusion Physical Exam 2 Vital Signs (Past 24 Hours): Last Vital Signs Temp 36.4 C L 10/13/18 07:16 Pulse 67 10/13/18 07:16 Resp 16 10/13/18 07:16 BP 152/78 H 10/13/18 07:16 Pulse Ox 98 10/13/18 07:16 The patient appeared well nourished and normally developed. Vital signs as documented. Head exam is unremarkable. normocephalic, atraumatic Neck is without jugular venous distension, thyromegaly, or lymphademopathy Lungs are clear to auscultation and percussion. Cardiac exam reveals Rhythm is regular. First and second heart sounds normal. Abdominal exam reveals mild left upper quadrant abdominal pain normal bowel sounds, no masses, no organomegaly Extremities are nonedematous and both pedal pulses are present Neurologic exam is A&Ox3, no focal deficits, strength is equal bilateral Psychologically seems neither anxious or depressed Skin is warm Dry without bruises or lesions Results & Data Diagnostic Findings CT abd pelvis IMPRESSION: 1. Mild circumferential enhancement about the gallbladder wall is noted in conjunction with enhancement about the extrahepatic biliary tree. Additionally, there is minimal layering gallbladder sludge or cholelithiasis within the gallbladder lumen along with trace pericholecystic edema. 2. No bowel obstruction. 3. Suggestion of mild rectal wall thickening. 4. Colonic diverticulosis without acute diverticulitis. 5. Moderate hiatal hernia. 6. Punctate left nephrolithiasis. _ (1) Pancreatitis Acute pancreatitis complication: no infection or necrosis Chronicity: acute Pancreatitis type: unspecified pancreatitis type Qualified Code(s): K85.90 - Acute pancreatitis without necrosis or infection, unspecified
--- NOTE | 2018-10-13 07:39 | Surgery Progress Note ---
Date of Service October 13, 2018 Assessment & Plan (1) Cholecystitis: doing ok clinically awaiting MRCP +/- ERCP. AM labs pending. will need lap josh this admission after w/u complete Subjective feeling better this am, no new complaints. Physical Exam 2 Vital Signs (Past 24 Hours): Last Vital Signs Temp 36.4 C L 10/13/18 07:16 Pulse 67 10/13/18 07:16 Resp 16 10/13/18 07:16 BP 152/78 H 10/13/18 07:16 Pulse Ox 98 10/13/18 07:16 Physical Exam: alert/oriented. nad abd: soft. minimal RUQ ttp. no g/r/r
[2018-10-13] MEDS ORDERED: ASPIRIN 81 MG ECTAB PO SCH (09:00)
--- NOTE | 2018-10-13 10:52 | Gastroenterology Progress Note ---
Addendum entered and electronically signed by Stefania Tillman 10/13/18 12:14: Addendum (Blank) Addendum October 13, 2018 12:13 MRCP completed which showed choledocholithiasis at level of pancreas. Will plan for ERCP tomorrow in OR by Dr. Beck. Ok for CL diet today but NPO after midnight if no more procedures/imaging studies planned. Will contact Surgery, given new MRCP finding and ask if tandem lap cholecystectomy can be done at time of ERCP tomorrow. Original Note: Date of Service October 13, 2018 Assessment & Plan (1) Pancreatitis: Pt is a 78 y/o male w RUQ abd pain w N/V, elevated LFTs, Lipase, CT evidence of enhancement about gallbladder wall and extrahepatic biliary tree, gallstones, sludge suspicious for developing cholecystitis or cholangitis. Symptomatically better, LFTs and Lipase improved. Likely had passed gallstone. - Keep NPO - Pending MRCP to r/o choledocholithiasis; however I was told it may a while to get pacemaker rep and Cardiology to be available to set up pacemaker for MRI study. If this is the case, and suspect pt had passed gallstone, then I will discuss w Surgery team to proceed w cholecystectomy and to perform intra op cholangiogram instead. - Continue IVF hydration - Symptomatic managment Attg add: I interviewed and examined pt, reviewed chart and labs. Pt with improved pain, improved LFT's, stable VS, and approp fall in BUN/hgb with hydration. MRCP shows retained stones. Plan to cont abx, ERCP planned for tomorrow, surgery following for josh. Subjective Pt feels well, denies any more abd pain, n/v, afebrile overnight. BM this AM. Noted LFTs and Lipase decreasing Physical Exam 2 Vital Signs (Past 24 Hours): Last Vital Signs Temp 36.4 C L 10/13/18 07:16 Pulse 77 10/13/18 07:30 Resp 16 10/13/18 07:16 BP 152/78 H 10/13/18 07:16 Pulse Ox 98 10/13/18 07:16 Constitutional: WD/WN, vitals as above well groomed, cooperative and comfortable Eyes: PERRL, conjunctivae normal, anicteric sclerae ENMT: external ear and nose normal, oropharynx normal Respiratory: normal respiratory effort, lungs clear to auscultation Cardiovascular: RRR, no murmur, no edema Gastrointestinal (Abdomen): normal bowel sounds, soft, nontender, no hepatosplenomegaly Skin: no rashes, warm and dry no jaundice Neurologic: Motor/Sensory: no asterixis Psychiatric: A+Ox3, euthymic affect Lymphatic: no lymphedema Results & Data Laboratory Results Laboratory Results - last 72 hr 10/12/18 10/12/18 10/12/18 10:55 10:55 10:55 WBC 9.47 RBC 4.17 L Hgb 13.0 L Hct 38.8 L MCV 93.0 MCH 31.2 MCHC 33.5 RDW Std Deviation 46.5 H RDW Coeff of Ricky 13.6 Plt Count 103 L MPV 11.0 H Immature Gran % (Auto) 0.4 Neut % (Auto) 86.5 Lymph % (Auto) 6.8 [place] % (Auto) 5.7 Eos % (Auto) 0.5 Baso % (Auto) 0.1 Immature Gran # (Auto) 0.04 H Neut # (Auto) 8.19 H Lymph # (Auto) 0.64 L [place] # (Auto) 0.54 Eos # (Auto) 0.05 Baso # (Auto) 0.01 Platelet Estimate PT 10.7 INR 1.1 Sodium 136 Potassium 3.6 Chloride 101 Carbon Dioxide 28 Anion Gap 7.0 BUN 22 H Creatinine 0.93 Est Cr Clr Drug Dosing 81.7 Est GFR ( Amer) 92.1 Est GFR (Non-Af Amer) 79.5 BUN/Creatinine Ratio 23.7 H Glucose 114 H Calcium 9.0 Total Bilirubin 3.0 H Direct Bilirubin AST 563 H ALT 424 H Alkaline Phosphatase 322 H Troponin I < 0.015 Total Protein 7.5 Albumin 3.7 Globulin 3.8 Albumin/Globulin Ratio 1.0 Lipase 75478 H Urine Color Urine Appearance Urine pH Ur Specific [place] Urine Protein Urine Glucose (UA) Urine Ketones Urine Blood Urine Nitrite Urine Bilirubin Urine Urobilinogen Ur Leukocyte Esterase Urine RBC Urine WBC Ur Epithelial Cells Urine Bacteria Urine Yeast 10/12/18 10/13/18 10/13/18 11:35 05:40 05:40 WBC 5.28 RBC 3.66 L Hgb 11.2 L Hct 34.0 L MCV 92.9 MCH 30.6 MCHC 32.9 RDW Std Deviation 46.1 RDW Coeff of Ricky 13.6 Plt Count 82 L MPV 10.3 Immature Gran % (Auto) 0.4 Neut % (Auto) 79.0 Lymph % (Auto) 10.0 [place] % (Auto) 7.0 Eos % (Auto) 3.2 Baso % (Auto) 0.4 Immature Gran # (Auto) 0.02 Neut # (Auto) 4.17 Lymph # (Auto) 0.53 L [place] # (Auto) 0.37 Eos # (Auto) 0.17 Baso # (Auto) 0.02 Platelet Estimate Decreased PT INR Sodium 140 Potassium 4.1 Chloride 109 H Carbon Dioxide 26 Anion Gap 5.0 BUN 14 Creatinine 0.96 Est Cr Clr Drug Dosing 78.4 Est GFR ( Amer) 88.6 Est GFR (Non-Af Amer) 76.5 BUN/Creatinine Ratio 14.6 Glucose 104 H Calcium 7.7 L Total Bilirubin 1.3 H D Direct Bilirubin 0.5 H AST 175 H ALT 289 H Alkaline Phosphatase 223 H Troponin I Total Protein 6.4 Albumin 2.9 L Globulin Albumin/Globulin Ratio Lipase 836 H Urine Color Dark Yellow Urine Appearance Clear Urine pH 6.5 Ur Specific [place] 1.018 Urine Protein Negative Urine Glucose (UA) Negative Urine Ketones Negative Urine Blood Negative Urine Nitrite Positive H Urine Bilirubin 1+ H Urine Urobilinogen Negative Ur Leukocyte Esterase 2+ H Urine RBC 0-4 Urine WBC >30 H Ur Epithelial Cells 0-5 Urine Bacteria Negative Urine Yeast Budding w/ Hyphae H _ (1) Pancreatitis Acute pancreatitis complication: no infection or necrosis Chronicity: acute Pancreatitis type: unspecified pancreatitis type Qualified Code(s): K85.90 - Acute pancreatitis without necrosis or infection, unspecified
[2018-10-13] MEDS ORDERED: PANTOprazole 40 MG in SYRINGE 0 ML IV SCH (11:00)
--- NOTE | 2018-10-13 11:00 | Magnetic Resonance Report ---
MR MRCP CLINICAL HISTORY: 78 years-old Male presenting with r/o choledocholithiasis. TECHNIQUE: Multisequence, multiplanar MR imaging of the abdomen was performed without the use of intr avenous contrast. IV contrast: None. COMPARISON: CT from 10/12/2018. FINDINGS: Localizer images: Unremarkable. Lung bases: Minimal basilar opacities, likely atelectasis. Normal heart size. Trace bilateral pleural effusions. Liver: Normal morphology. Several well-defined T2 hyperintense lesions likely hepatic cysts or hamart omas. Biliary: Conventional intrahepatic biliary bifurcation. Evidence of a common duct calculus at the lev el of the pancreatic head, which is at the level of the cystic duct insertion (series 6 image 94). Th e cystic duct has a low posterior insertion at the level the pancreatic head (series 601 images [id number]). No intrahepatic or significant extrahepatic biliary ductal dilatation. No cystic duct dilatation . Gallbladder contains gallstones. The gallbladder is physiologically distended though there is trace gallbladder wall thickening. No pericholecystic inflammatory change. Pancreas: Mild parenchymal atrophy. Spleen: Mild splenomegaly with the spleen measuring 14.1 cm in maximal sagittal dimension. Adrenal glands: Normal noncontrast appearance. Kidneys and ureters: Normal noncontrast appearance. No hydronephrosis. Normal ureters. Bowel: Normal noncontrast appearance. No bowel obstruction. Peritoneal cavity: Trace free fluid in the pelvis. Lymph nodes: No gross lymphadenopathy allowing for noncontrast technique. Vasculature: Atherosclerosis of the normal caliber abdominal aorta. Abdominal wall: Median sternotomy wires noted. Musculoskeletal: Normal. IMPRESSION: 1. Choledocholithiasis immediately distal to the cystic duct insertion, which is a low and posterior insertion at the level the pancreatic head. No cystic duct, intrahepatic, or extra hepatic biliary d uctal dilatation. 2. Physiological bladder distention though there is trace gallbladder wall thickening. Overall no co nvincing evidence of cholecystitis. If there is clinical concern, nuclear medicine HIDA scan could be obtained. 3. Mild splenomegaly. 4. Trace bilateral pleural effusions. Electronically signed by: Abdiel Pastrana M.D. 10/13/2018 10:59 AM
[2018-10-13] MEDS: METOPROLOL TARTRATE 50 MG TAB PO SCH ×2 (12:23→20:08)
--- NOTE | 2018-10-13 14:50 | Anesthesiology Consultation ---
Date of Service October 13, 2018 Assessment & Plan Chart Review Chart Review: Acceptable Risk for Surgery and Patient NOT seen in Pre Admission Testing Consults Requested none History Surgery Operation Date: 10/14/18 13:30 Proposed Procedures p Endoscopic Retrograde Cholangiopancreatogram - Yamini Beck MD Height/Weight Height: 6 ft Weight: 95.4 kg Allergies Allergy/AdvReac Type Severity Reaction Status Date / Time oxycodone [From OxyContin] Allergy Unknown Hallucinati Verified 10/12/18 12:29 ng Sulfa (Sulfonamide Allergy Unknown rash Verified 10/12/18 12:29 Antibiotics) lisinopril AdvReac Mild cough Verified 10/12/18 12:29 ciprofloxacin [From Cipro] AdvReac Unknown see notes Verified 10/12/18 12:29 metoclopramide AdvReac Unknown Depression Verified 10/12/18 12:29 Medications Home Medications Medication Instructions Recorded Confirmed Last Taken aspirin [Aspir-81] 81 mg PO QAM 06/19/18 10/12/18 10/11/18 cholecalciferol (vitamin D3) 2,000 unit PO QAM 06/19/18 10/12/18 10/11/18 [Vitamin D3] citalopram 10 mg PO QAM 06/19/18 10/12/18 10/11/18 doxycycline hyclate 50 mg PO Q3D 06/19/18 10/12/18 07/27/18 esomeprazole magnesium [Nexium] 40 mg PO HS 06/19/18 10/12/18 10/11/18 ezetimibe-simvastatin [Vytorin 1 tab PO HS 06/19/18 10/12/18 10/11/18 10-40] hydrochlorothiazide 25 mg PO QAM 06/19/18 10/12/18 10/11/18 isosorbide mononitrate 30 mg PO QAM 06/19/18 10/12/18 10/11/18 losartan 25 mg PO QAM 06/19/18 10/12/18 10/11/18 multivitamin [Multiple Vitamins] 1 tab PO QAM 06/19/18 10/12/18 10/11/18 metoprolol tartrate 50 mg PO BID 09/04/18 10/12/18 10/11/18 21:00 ondansetron 4 mg PO QID PRN 09/04/18 10/12/18 Unknown nitrofurantoin monohyd/m-cryst 100 mg PO BID 09/15/18 10/12/18 10/11/18 21:00 [Macrobid] oxybutynin chloride 5 mg PO TID PRN 09/16/18 10/12/18 10/11/18 21:00 nystatin 1 appln TOP BID #15 gm 09/29/18 10/12/18 10/11/18 21:00 triamcinolone acetonide 1 appln TOP BID #15 gm 09/29/18 10/12/18 10/11/18 21:00 Active Medications Generic Name Dose Route Start Last Admin Trade Name Freq PRN Reason Stop Dose Admin Aspirin 81 mg 10/13/18 09:00 10/13/18 12:23 Ecotrin Ectab PO 11/12/18 08:59 81 mg QAM VENICE Administration Potassium Chloride/Sodium Chloride 20 meq in 1,000 mls @ 125 mls/hr 10/12/18 16:15 10/13/18 14:14 Normal Saline W/20 Meq Kcl IV 11/11/18 16:14 125 mls/hr .Q8H VENICE Administration Piperacillin Sod/Tazobactam 115 mls @ 28.75 mls/hr 10/12/18 20:00 10/13/18 12 :23 Sod 3.375 gm/ Dextrose IV 10/22/18 19:59 28.8 mls/hr Q8H VENICE Administration Metoprolol Tartrate 50 mg 10/12/18 21:00 10/13/18 12:23 Lopressor PO 11/11/18 20:59 50 mg BID VENICE Administration Nystatin 1 appln 10/12/18 21:00 10/13/18 07:32 Nystatin EXT 11/11/18 20:59 1 appln BID VENICE Administration Triamcinolone Acetonide 1 appln 10/12/18 21:00 10/13/18 07:32 Kenalog 0.1% TOP 11/11/18 20:59 1 appln BID VENICE Administration Past Medical History Medical History A-fib INCIDENTAL A.FIB/A. 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 CABG X3 Hyperlipidemia Kyphosis Pulmonary HTN RVSP 40-50MMHG Rosacea SMA stenosis ASYMPTOMATIC; "INCIDENTAL FINDING" PER CARDIO Sleep apnea CPAP UTI (urinary tract infection) RE-OCCURING , ED 09/04/18 - CATH CHANGE AND AWAITING URINE CULTURE Past Family History Family History Other HTN (hypertension) Past Surgical History Surgical History H/O cystoscopy multiple. most recent 09/29/[address] Santana. MAC. No issues. History of arthroplasty of right knee History of cardiac cath (HX MULTIPLE CATHS/TOTAL OF 2 STENTS) MOST RECENT...03/25/18 ABNORMAL STRESS TEST/NO STENTS History of robot-assisted laparoscopic radical prostatectomy Hx of bilateral cataract extraction WITH LASIK PROCEDURE Hx of colonoscopy Hx of heart bypass surgery S/P CABG X 3 (2012) Hx of tooth extraction Social History Smoking Status: Never smoker tobacco type: cigarettes Smoking cigarettes per day: QUIT 30 YRS AGO. Smoked 1ppd x 20 years. Hx Alcohol Use: Yes Alcohol type: hard liquor alcohol intake frequency: 0-2 drinks per day Hx Substance Use: No substance use type: does not use Physical Exam Vital Signs Last Vital Signs Temp 36.6 C 10/13/18 11:28 Pulse 62 10/13/18 11:28 Resp 16 10/13/18 11:28 BP 128/66 10/13/18 11:28 Pulse Ox 96 10/13/18 11:28 Testing Electrocardiogram Date: 10/12/18 HR 73 Atrial-paced rhythm with prolonged AV conduction with frequent Premature ventricular complexes and Premature atrial complexes Right bundle branch block Left ventricular hypertrophy with repolarization abnormality Inferior infarct , age undetermined Abnormal ECG When compared with ECG of 06-OCT-2017 17:50, Atrial pacing is now present Ventricular pacing is no longer present Confirmed by SHIRIN RAMOS ([id number]) on 10/12/2018 9:55:11 PM Chest X-Ray Date: 10/12/18 HISTORY: Generalized abdominal pain. COMPARISON: Chest 10/06/2017. FINDINGS: Left-sided dual-chamber pacemaker. Postoperative changes. No pneumothorax. No pleural effusions. No evidence for pulmonary edema. No new focal lung consolidations to suggest pneumonia. Retrocardiac density favors a hiatus hernia. IMPRESSION: 1. No acute process within the chest. 2. Stable mild cardiomegaly. 3. Hiatus hernia. Other Testing Date: 09/21/17 EF: 55-60% RWMA: + none Other Findings: + LVH (Mild concentric) and + diastolic dysfunction (Grade II) Valvular Disease: + MR (mild) Mild LAD. Mild AR. RVSP 40-50mmhg. Mild IVC dilation. Stress Test Date: 03/13/18 Type: nuclear (LEXISCAN) Positive myocardial perfusion study for mild amount of Lexiscan induced ischemia in mid anterolateral, apical lateral segments. Fixed inferior base to mid perfusion defect with corresponding WMA consistent with prior infarct. Dilated LV with moderate LV dysfunction. EF 37% with inferior HK and paradoxical septal motion consistent with post-operative state. Non-diagnostic stress EKG due to inability to reach taget HR. 68% MPHR. Subsequent cardiac cath done 03/25/18 Cardiac Catheterization Date: 03/25/18 LM no disease. LAD diffuse up to 8-% mid segment disease; several small diagonals. Patent ORBERTO-LAD (non-selectively engaged due to severe SCA tortuosity ). Patent SVG/RI. Diffuse 50-60% LCX disease. 100% occluded pRCA. Patent SVG- PDA. Further evaluation of PCV burden recommended (? etiology for EF drop)- subsequent cardiac holter done by cardio. EF 35%. Med optimization recommended. Other Testing Pacer Check= 01/29/18= [employer]. AP 10.3%. 47.6% RVP. Mode AAIR <--> DDDR. <0.1% Mode switched. Less than 30 minutes of a. fib (will monitor per cardio). (Per patient there was a remote check the week of 08/31/18, but we are unable to find this. Discussed with Dr. Love, and because of the type of procedure, we are ok to proceed without a new pacer check.) 48 Hour Holter Monitor= 04/17/18= Predominant cardiac rhythm sinus rhythm. Minimum HR 64bpm. Maximum HR 145 bpm. Average HR 82bpm. Ventricular ectopy activity consistent with occasional PVC's. Supraventricular ectopy activity consistent with occasional PAC's. 2 diary entries for "tightening and upper chest" EKG correlation is sinus tachy with isolated PVC's. Laboratory Results 10/13/18 05:40 10/13/18 05:40 PT 10.7 Seconds (9.0-12.0) 10/12/18 10:55 INR 1.1 (0.9-1.1) 10/12/18 10:55 Urine Color Dark Yellow 10/12/18 11:35 Urine Appearance Clear (Clear) 10/12/18 11:35 Urine pH 6.5 (4.5-7.5) 10/12/18 11:35 Ur Specific [place] 1.018 (1.000-1.030) 10/12/18 11:35 Urine Protein Negative (Negative) 10/12/18 11:35 Urine Glucose (UA) Negative (Negative) 10/12/18 11:35 Urine Ketones Negative (Negative) 10/12/18 11:35 Urine Nitrite Positive (Negative) H 10/12/18 11:35 Ur Leukocyte Esterase 2+ (Negative) H 10/12/18 11:35 Urine RBC 0-4 /hpf (0-4) 10/12/18 11:35 Urine WBC >30 /hpf (0-5) H 10/12/18 11:35 Ur Epithelial Cells 0-5 /lpf (0-5) 10/12/18 11:35 10/12/18 11:35 Urine Culture - Preliminary Urine,Clean Catch Yeast
[2018-10-13] MEDS: LACTOBACILLUS ACIDOPHILUS 1 GM PACK PO SCH (18:08)
[2018-10-14] MEDS ORDERED: Nursing to Pharmacy Communication ONE (00:16)
[2018-10-14] MEDS: PIPERACILLIN/TAZOBACTAM 3.375 GM in DEXTROSE 5% 100 ML IV SCH ×3 (04:01→20:20)
[2018-10-14] MEDS: NSS + 20MEQ KCL 20 MEQ/1,000 ML BAG IV SCH ×2 (06:09→20:10)
[2018-10-14] MEDS: TRIAMCINOLONE ACET 0.1% CR 15 GM TUBE TOP SCH ×2 (07:54→20:22)
[2018-10-14] MEDS: PANTOprazole 40 MG TAB PO SCH (07:54)
[2018-10-14] MEDS: NYSTATIN CR 15 GM TUBE EXT SCH ×2 (07:56→20:23)
[2018-10-14] MEDS: METOPROLOL TARTRATE 50 MG TAB PO SCH ×2 (07:57→20:23)
[2018-10-14] MEDS ORDERED: INDOMETHACIN 50 MG SUPP PR ONE ×2 (08:00→13:45)
[2018-10-14] MEDS: LACTOBACILLUS ACIDOPHILUS 1 GM PACK PO SCH ×3 (08:17→18:22)
--- NOTE | 2018-10-14 08:17 | Surgery Progress Note ---
Date of Service October 14, 2018 Assessment & Plan (1) Obstructive jaundice: MRCP shows choledocholithiasis for ERCP and lap josh combined procedure today discussed options/risks ( bleeding/infection/dvt/pe/mi/cva/bile leaks/injury to other organs etc...) questions answered pt agreeable to OR this afternoon Subjective pt seen. feeling ok/no new complaints. Physical Exam 2 Vital Signs (Past 24 Hours): Last Vital Signs Temp 36.8 C 10/14/18 07:58 Pulse 63 10/14/18 07:58 Resp 19 10/14/18 07:58 BP 125/72 10/14/18 07:58 Pulse Ox 95 10/14/18 07:58 Physical Exam: alert. nad abd: soft. nt. +bs's
[2018-10-14] MEDS ORDERED: CHLORASEPTIC 1.4% SOLN 180 ML BTL MT PRN (09:01)
--- NOTE | 2018-10-14 09:01 | History & Physical Bridge Note ---
Date of Service October 14, 2018 History & Physical Bridge Note Pt is a 78 y/o male admitted w gallstone pancreatitis, MRCP showed choledocholithiasis at level of pancreas. LFTs and Lipase are improving. Pt afebrile overnight, no acute events. He denies any abd pain, n/v, + BM this AM. He had been NPO for scheduled ERCP and tandem lap cholecystectomy in OR this afternoon. VS, Labs reviewed. Exam: - General: AAOx3, in NAD - Resp: CTA bilaterally - CV: HRR no murmur or gallops - Abd: Soft, non tender, BS present - Ext: No edema on extremities. GI will give further recs after ERCP is completed. Supervising Physician Co-Signing Physician Notes I performed a history and physical examination of the patient, including specifically on physical exam - soft, nontender abdomen. I have discussed the patient's management with Stefania. Please refer to the nurse practitioner's note for the documented findings and plan of care. ERCP today for CBD stone. Patient consented and understand the risk and benefits.
[2018-10-14 09:19] LABS: Albumin Level 2.9 gm/dl (3.4-5.0); Bilirubin Direct 0.3 mg/dl (0-0.2); Bilirubin,Total 0.8 mg/dl (0.2-1); Total Protein 6.2 gm/dl (6.4-8.2)
--- NOTE | 2018-10-14 13:21 | History & Physical Bridge Note ---
Date of Service October 14, 2018 History & Physical Bridge Note I have examined the patient, reviewed the History & Physical and in the interval since the performance of the History & Physical I have noted the following changes of clinical significance: no changes noted
[2018-10-14] MEDS ORDERED: ePHEDrine sulfate 50 MG/ML AMP IV PRN (13:44)
[2018-10-14] MEDS ORDERED: ONDANSETRON INJ 2 MG/ML 2 ML VIAL IV PRN (13:44)
[2018-10-14] MEDS ORDERED: ATROPINE SULFATE 0.1 MG/ML 10ML SYR IV PRN (13:44)
[2018-10-14] MEDS ORDERED: PROPOFOL IV EMULSION 10 MG/ML 20 ML VIAL IV ONE (13:48)
[2018-10-14] MEDS ORDERED: MIDAZOLAM HCL 1 MG/ML 2ML VIAL ONE (13:48)
[2018-10-14] MEDS ORDERED: fentaNYL citrate 100 MCG/2 ML VIAL ONE ×2 (13:49→14:42)
[2018-10-14] MEDS ORDERED: BUPIVACAINE/EPINEPHRINE 0.5% MPF 1:200,000 30 ML VIAL ONE (13:51)
--- NOTE | 2018-10-14 14:39 | Operative Report ---
Post Operative Report Pre & Post Diagnosis Operation Date: 10/14/18 13:30 Pre-Op Diagnosis: Gallstone Pancreatitis Post-Op Diagnosis: Common Bile Duct Stone Removal, Balloon Sweep, Sphincteromomy Procedure Operation Date: 10/14/18 13:30 Actual Procedures p Endoscopic Retrograde Cholangiopancreatogram - Yamini Beck MD s Laparoscopic Cholecystectomy - Jefferson Hurley DO Surgeon Yamini Beck MD Unified Communications Architect None Estimated Blood Loss 0 Findings See Below (Common bile duct stone removed by balloon sweep, sphincterotomy,) Specimens None Description of Procedure ERCP I attest to the content of the Intraoperative Record and any orders documented therein. Any exceptions are noted below.
[2018-10-14] MEDS ORDERED: ROCURONIUM BROMIDE 10 MG/ML 5 ML VIAL ONE (14:44)
--- NOTE | 2018-10-14 14:48 | Fluoroscopy Report ---
INTRAOPERATIVE RADIOGRAPHS CLINICAL HISTORY: ERCP. Fluoroscopy time: 76 seconds. FINDINGS: 9 spot fluoroscopic views of the right upper quadrant from an ERCP procedure are correlated with MRCP dated 10/13/2018. The initial images show endoscope present in the stomach with opacificati on of the common bile duct. There is no significant intrahepatic biliary ductal dilatation. A balloon sweep of the common duct is performed. IMPRESSION: Intraoperative images from an ERCP procedure as above. See operative report for detailed findings. Electronically signed by: Alton Joseph M.D. 10/14/2018 2:46 PM
--- NOTE | 2018-10-14 14:50 | GI REPORT ---
Patient Name: Elbert Sesay Procedure Date: 10/14/2018 2:14 PM Date of : 1940 Admit Type: Inpatient Age: 78 Gender: Male Attending MD: Yamini Beck MD Procedure: ERCP Providers: Yamini Beck MD Referring MD: Hemant Lombardi Indications: For therapy of bile duct stone(s), Elevated liver enzymes, Gallstone associated acute pancreatitis Medicines: General Anesthesia Complications: No immediate complications. Estimated Blood Loss: Estimated blood loss: none. Procedure: Pre-Anesthesia Assessment: - Prior to the procedure, a History and Physical was performed, and patient medications and allergies were reviewed. The patient is competent. The risks and benefits of the procedure and the sedation options and risks were discussed with the patient. All questions were answered and informed consent was obtained. Patient identification and proposed procedure were verified by the physician and the nurse in the procedure room. Mental Status Examination: alert and oriented. Airway Examination: normal oropharyngeal airway and neck mobility. Respiratory Examination: clear to auscultation. CV Examination: normal. ASA Grade Assessment: III - A patient with severe systemic disease. After reviewing the risks and benefits, the patient was deemed in satisfactory condition to undergo the procedure. The anesthesia plan was to use general anesthesia. Immediately prior to administration of medications, the patient was re-assessed for adequacy to receive sedatives. The heart rate, respiratory rate, oxygen saturations, blood pressure, adequacy of pulmonary ventilation, and response to care were monitored throughout the procedure. The physical status of the patient was re-assessed after the procedure. After obtaining informed consent, the scope was passed under direct vision. Throughout the procedure, the patient's blood pressure, pulse, and oxygen saturations were monitored continuously. The Scope was introduced through the mouth, and advanced to the duodenum and used to inject contrast into the bile duct. The ERCP was accomplished without difficulty. The patient tolerated the procedure well. Findings: The journeyman level acoustic analyst film was normal. The esophagus was successfully intubated under direct vision. The scope was advanced to a normal major papilla in the descending duodenum without detailed examination of the pharynx, larynx and associated structures, and upper GI tract. The upper GI tract was grossly normal. A 0.035 inch straight standard wire was passed into the biliary tree from the first attempt. The Fusion OMNI sphincterotome was passed over the guidewire and the bile duct was then deeply cannulated. Contrast was injected. I personally interpreted the bile duct images. Ductal flow of contrast was adequate. Image quality was adequate. Contrast extended to the main bile duct. The main bile duct was mildly dilated. The largest diameter was 8 mm. The lower third of the main bile duct contained one stone. Biliary sphincterotomy was made with a monofilament Fusion OMNI sphincterotome using ERBE electrocautery. There was no post-sphincterotomy bleeding. The biliary tree was swept with an 11.5 mm balloon starting at the bifurcation. One stone was removed. No stones remained. Occlusion cholangiogram showed no filling defects. Indomethacin 100 mg was given via suppository to decrease the risk of post-ERCP pancreatitis (PEP). The total fluoroscopy exposure time was 1 minute and 15 seconds. Pancreatic duct was not cannulated nor injected with contrast. Impression: - The entire main bile duct was mildly dilated. - Choledocholithiasis was found. Complete removal was accomplished by biliary sphincterotomy and balloon extraction. Recommendation: - Return patient to [facility] for ongoing care. - Follow up with surgery for cholecystectomy. Yamini Beck MD 10/14/2018 2:49:31 PM This report has been signed electronically. Note Initiated On: 10/14/2018 2:14 PM Number of Addenda: 0 I attest to the content of the Intraoperative Record and orders documented therein, exceptions below {[id number]}
--- NOTE | 2018-10-14 15:27 | Operative Report ---
Post Operative Report Pre & Post Diagnosis Operation Date: 10/14/18 13:30 Pre-Op Diagnosis: Gallstone Pancreatitis Post-Op Diagnosis: Common Bile Duct Stone Removal, Balloon Sweep, Sphincteromomy gallstone pancreatitis cholecystitis Procedure Operation Date: 10/14/18 13:30 Actual Procedures p Endoscopic Retrograde Cholangiopancreatogram - MD jody Lance Laparoscopic Cholecystectomy - Jefferson Hurley DO Surgeon Jefferson Hurley DO Solder Cream Maker latonya Back Estimated Blood Loss 0 Findings Consistent with Post-Op Diagnosis Specimens gallbladder Description of Procedure This was a combined procedure with GI. Please see their dictation regarding the ERCP. They were able to obtain a common bile duct stone and perform a sphincterotomy. When I entered the room the patient was already intubated and the abdomen sterilely prepped and draped in usual fashion. A periumbilical incision was made with an 11 blade scalpel and carried down through the soft tissue using electrocautery. The anterior rectus fascia was opened using electrocautery and 2 #0 Vicryl stay sutures were placed. The peritoneum was elevated with hemostats and incised under direct vision using Metzenbaum scissors. A finger sweep was performed and a 12 mm Dunaway trocar was placed. The abdomen was insufflated to 18 mmHg. The laparoscope was inserted and the abdomen was examined in 360�. No gross abnormalities were identified other than an acutely inflamed gallbladder. A subxiphoid 5 mm port and 2 right upper quadrant 5 mm ports were placed under direct vision. Eventually the subxiphoid port would be replaced with a 12 mm port. The patient was placed in a reverse Trendelenburg position and slightly airplaned to the left. The gallbladder was grasped and elevated superiorly and laterally. A [place] dissector was used to take down adhesions around the neck of the gallbladder. The cystic duct was identified and skeletonized. It was very dilated likely from passing the stone. I therefore used a CESARIO brown cartridge 45 mm stapler to transect it. In similar fashion the cystic artery was identified and skeletonized clipped twice proximally and once distally and divided. The gallbladder was removed from the gallbladder fossa with electrocautery. It was placed into an Endo Catch bag. Thorough irrigation was performed. At the end of the procedure there was adequate hemostasis and no evidence of any bile leaks. A final look around the abdomen showed no other abnormalities other than a small hiatal hernia. The gallbladder and trochars were all removed and the abdomen was desufflated. The fascia of the camera port was closed using 0 Vicryl in a [id number] fashion. All the wounds were irrigated and closed using 4-0 Monocryl. Marcaine was injected around them for postoperative analgesia and skin glue used as a dressing. The patient was awaken extubated and transferred to recovery in stable condition. My physician's employee relations assistant was present throughout the entire case... helped with prepping the patient. With exposure for trocar placement, as well as retracted the gallbladder throughout the case and also assisted with wound closure and dressing placement. I attest to the content of the Intraoperative Record and any orders documented therein. Any exceptions are noted below.
--- NOTE | 2018-10-14 16:12 | Anesthesiology Progress Note ---
Date of Service October 14, 2018 Anesthesia Post Procedure Vital Signs Vital Signs: Temp Pulse Pulse Pulse Resp BP Pulse Ox 10/14/18 16:05 80 18 167/96 H 100 10/14/18 15:55 78 21 168/97 H 100 10/14/18 15:45 79 16 152/100 H 100 10/14/18 15:38 36.6 C 88 18 167/96 H 99 10/14/18 12:46 37.0 C 61 20 156/88 H 97 10/14/18 07:58 36.8 C 63 19 125/72 95 10/13/18 23:55 60 18 98 10/13/18 23:35 36.6 C 71 16 142/83 H 98 10/13/18 20:05 61 115/68 10/13/18 16:30 36.7 C 59 L 15 155/69 H 98 Notes Mental Status: alert / awake / arousable and participated in evaluation Patient Amnestic to Procedure: Yes Nausea / Vomiting: adequately controlled Pain: adequately controlled Airway Patency, RR, SpO2: stable & adequate BP & HR: stable & adequate Hydration State: stable & adequate Anesthetic Complications: no major complications apparent and Pt Satisfied with anesthetic care
[2018-10-14] MEDS: fentaNYL citrate 100 MCG/2 ML VIAL IV PRN ×4 (16:15→16:30)
--- NOTE | 2018-10-14 16:34 | Hospitalist Progress Note ---
Date of Service October 14, 2018 Assessment & Plan (1) Cholecystitis: acute cholecystitis on CT, has elevated in bili, alk phos and AST/ALT Zosyn, consult GI and general surgery planning on ERCP stone extraction and cholecystectomy on 10/14 (2) Pancreatitis: lipase elevated but trending downward, epigastric pain and gall stones consult GI for recommendations on ERCP (3) CAD (coronary artery disease): no significant history since CABG in 2012 no recent chest pain or pressure Remains on aspirin, continue Metoprolol (4) H/O atrial flutter: one episode in the past, has a pacemaker cardiology has not anticoagulated due to hematuria/bladder fistulae currently remains in sinus rhythm, continue metoprolol (5) Dehydration: clinically dry IV hydration- (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 Santana and urology at [facility] hold Macrobid for now since he will be on Zosyn urine is growing gram negatives given his vesicular fistula we will ask urology whether this is significant and if should be treated Subjective Patient continues to feel improved he is awaiting surgical intervention for cholecystectomy and ERCP for stone retrieval Review of Systems ROS: well nourished well developed. No double vision blurry vision No problems with speech or swallowing No palpitations, chest pain or pressure No Wheezing or breathing issues Mild upper abdominal pain mild nausea no vomiting No burning urine urine frequency or changes in color however did have a positive urine culture No focal joint pain or muscle pain No skin rashes or oral lesions No unusual bruising or bleeding No focused back pain or numbness or loss of strength No changes in memory or confusion Physical Exam 2 Vital Signs (Past 24 Hours): Last Vital Signs Temp 36.6 C 10/14/18 15:38 Pulse 73 10/14/18 16:16 Resp 19 10/14/18 16:16 BP 163/94 H 10/14/18 16:16 Pulse Ox 97 10/14/18 16:16 The patient appeared well nourished and normally developed. Vital signs as documented. Head exam is unremarkable. normocephalic, atraumatic Neck is without jugular venous distension, thyromegaly, or lymphademopathy Lungs are clear to auscultation and percussion. Cardiac exam reveals Rhythm is regular. First and second heart sounds normal. Abdominal exam reveals mild upper quadrant tenderness bilaterally especially to palpation no rebound normal bowel sounds, no masses, no organomegaly Extremities are nonedematous and both pedal pulses are present Neurologic exam is A&Ox3, no focal deficits, strength is equal bilateral Psychologically seems neither anxious or depressed Skin is warm Dry without bruises or lesions _ (1) Pancreatitis Acute pancreatitis complication: no infection or necrosis Chronicity: acute Pancreatitis type: unspecified pancreatitis type Qualified Code(s): K85.90 - Acute pancreatitis without necrosis or infection, unspecified
[2018-10-14] MEDS ORDERED: LABETALOL HCL IV 5 MG/ML 20ML IV ONE (16:37)
[2018-10-14] MEDS ORDERED: HYDROCODONE/ACETAMOPHEN 5/325MG TAB PO PRN (17:17)
[2018-10-14] MEDS ORDERED: MoRPHine SULFATE 4 MG/ML 1 ML CARP\\VIAL IV PRN (17:17)
[2018-10-15] MEDS: NSS + 20MEQ KCL 20 MEQ/1,000 ML BAG IV SCH (04:36)
[2018-10-15] MEDS: PIPERACILLIN/TAZOBACTAM 3.375 GM in DEXTROSE 5% 100 ML IV SCH ×2 (04:45→15:52)
[2018-10-15 07:49] LABS: Creatinine Clr Calc Pharmacy 90.7 ml/min; Est GFR (African American) 99.1; Est GFR (Non-African American) 85.5
--- NOTE | 2018-10-15 08:02 | Anesthesiology Progress Note ---
Date of Service October 15, 2018 Anesthesia Post Procedure Vital Signs Vital Signs: Temp Pulse Pulse Pulse Pulse Resp BP 10/15/18 07:27 36.7 C 72 14 148/83 H 10/15/18 03:50 36.6 C 76 18 130/82 10/15/18 03:10 62 15 10/14/18 23:56 56 L 15 10/14/18 23:20 36.3 C L 58 L 16 128/72 10/14/18 19:42 36.4 C L 71 16 153/89 H 10/14/18 18:20 36.4 C L 62 18 170/86 H 10/14/18 17:49 36.5 C 70 18 173/84 H 10/14/18 17:10 36.6 C 73 18 175/89 H 10/14/18 16:55 36.6 C 68 22 165/94 H 10/14/18 16:45 66 18 167/88 H 10/14/18 16:35 36.6 C 76 13 173/103 H 10/14/18 16:25 73 15 177/94 H 10/14/18 16:15 73 19 163/94 H 10/14/18 16:05 80 18 167/96 H 10/14/18 15:55 78 21 168/97 H 10/14/18 15:45 79 16 152/100 H 10/14/18 15:38 36.6 C 88 18 167/96 H 10/14/18 12:46 37.0 C 61 20 156/88 H Pulse Ox 10/15/18 07:27 94 10/15/18 03:50 100 10/15/18 03:10 99 10/14/18 23:56 93 10/14/18 23:20 96 10/14/18 19:42 98 10/14/18 18:20 96 10/14/18 17:49 97 10/14/18 17:10 95 10/14/18 16:55 98 10/14/18 16:45 98 10/14/18 16:35 94 10/14/18 16:25 97 10/14/18 16:15 97 10/14/18 16:05 100 10/14/18 15:55 100 10/14/18 15:45 100 10/14/18 15:38 99 10/14/18 12:46 97 Pain Intensity Abdomen: Pain Intensity: 4 Notes Mental Status: alert / awake / arousable and participated in evaluation Patient Amnestic to Procedure: Yes Nausea / Vomiting: adequately controlled Pain: adequately controlled Airway Patency, RR, SpO2: stable & adequate BP & HR: stable & adequate Hydration State: stable & adequate Anesthetic Complications: no major complications apparent and Pt Satisfied with anesthetic care
[2018-10-15] MEDS: METOPROLOL TARTRATE 50 MG TAB PO SCH (09:31)
[2018-10-15] MEDS: LACTOBACILLUS ACIDOPHILUS 1 GM PACK PO SCH ×2 (09:32→12:30)
[2018-10-15] MEDS: PANTOprazole 40 MG TAB PO SCH (09:32)
[2018-10-15] MEDS: NYSTATIN CR 15 GM TUBE EXT SCH (09:33)
[2018-10-15] MEDS: TRIAMCINOLONE ACET 0.1% CR 15 GM TUBE TOP SCH (09:33)
--- NOTE | 2018-10-15 10:04 | Surgery Progress Note ---
Date of Service October 15, 2018 Assessment & Plan (1) Cholecystitis: POD 1 doing well advance diet ok for d/c from surgery perspective when ok with primary service Subjective pt doing ok. adequate pain control. lourdes liquids. Physical Exam 2 Vital Signs (Past 24 Hours): Last Vital Signs Temp 36.7 C 10/15/18 07:27 Pulse 72 10/15/18 07:27 Resp 14 10/15/18 07:27 BP 148/83 H 10/15/18 07:27 Pulse Ox 94 10/15/18 07:27 Physical Exam: alert. nad abd: soft. expected tenderness
[2018-10-15 10:28] LABS: Albumin Level 2.6 gm/dl (3.4-5.0); Bilirubin Direct 0.3 mg/dl (0-0.2); Bilirubin,Total 0.8 mg/dl (0.2-1); Total Protein 5.8 gm/dl (6.4-8.2)
--- NOTE | 2018-10-15 11:45 | Gastroenterology Progress Note ---
Date of Service October 15, 2018 Assessment & Plan (1) Pancreatitis: Pt is a 78 y/o male w cholecystitis, gallstone pancreatitis s/p ERCP w choledocholithiasis removal, biliary sphincterectomy and lap josh yesterday. He 's doing well. LFTs trending down, lipase normalized. - Advance diet as tolerated - OK to DC IVF - Symptomatic management - No contraindication for DC from GI standpoint Attg add: I inerviewed and examined pt, reviewed chart and labs. Pt feels well , eating well, labs improved. No further recs. Ok for d/c. Subjective Pt s/p ERCP w choledocholithiasis removal, biliary sphicterectomy and lap cholecystectomy yesterday. Some abd pressure but no pain, denies any n/v, is passing flatus. LFTs trending down, Lipase normalized. Physical Exam 2 Vital Signs (Past 24 Hours): Last Vital Signs Temp 36.8 C 10/15/18 11:20 Pulse 66 10/15/18 11:20 Resp 13 10/15/18 11:20 BP 130/70 10/15/18 11:20 Pulse Ox 97 10/15/18 11:20 Constitutional: WD/WN, vitals as above well groomed, cooperative and comfortable Eyes: PERRL, conjunctivae normal, anicteric sclerae ENMT: external ear and nose normal, oropharynx normal Respiratory: normal respiratory effort, lungs clear to auscultation Cardiovascular: RRR, no murmur, no edema Gastrointestinal (Abdomen): normal bowel sounds, soft, nontender, no hepatosplenomegaly surgical sites CDI Skin: no rashes, warm and dry no jaundice Neurologic: Motor/Sensory: no asterixis Psychiatric: A+Ox3, euthymic affect Lymphatic: no lymphedema _ (1) Pancreatitis Acute pancreatitis complication: no infection or necrosis Chronicity: acute Pancreatitis type: unspecified pancreatitis type Qualified Code(s): K85.90 - Acute pancreatitis without necrosis or infection, unspecified
--- NOTE | 2018-10-15 19:05 | Discharge Summary ---
Date of Service October 15, 2018 Admission HPI Per Admitting Provider 78 yo male with history of CAD, s/p CABG and pacemaker as well as history of bladder fistula and ongoing mccormack catheter, presented to the ED today c/o abdominal pain. He said he does not normally have abdominal pain. He noticed pain yesterday while at [employer] in the morning. The pain was around his umbilicus and lasted for 20 minutes. He did not have any nausea or vomiting at that time. The pain went away on it's own, nothing made it better or worse. He did not have much of an appetite last night or this morning. The pain returned this morning, more severe and was associated with vomiting. He vomited twice, all bile and gastric contents. He moved his bowels this morning , normal BM, no diarrhea. Again, he has never had pain like this before. Prior to yesterday he has been in a state of good health. No fever/chills or sweats, weight stable. He has ongoing issue with bladder fistula. Followed locally with Dr. Santana as well as [facility]. Surgery was discussed but opted for conservative route with fistula for 3 months. Per patient's , recent scans have showed the fistula closing. The mccormack would come out in 10 days. He has been on macrobid to suppress infection, but he had a UTI recently that cleared up with Ceftin. He has no symptoms with the mccormack. He has a cardiac history of heart catheterization in 2012 that was complicated by RCA rupture and IL. Was flown to [facility], had triple bypass and pacemaker. He follows locally with Dr. Blackwell. He had an echo in August 2017 that showed EF of 55-60% with grade II diastolic dysfunction. He had a Lexiscan stress test in February 2018, only achieved 68% max HR. No active cardiac symptoms. No chest pain, no orthopnea, no dyspnea on exertion. In the ED the lipase was elevated at 17k and all LFT were elevated, bili 3.0 and alk phos 322 suggesting obstructive process. WBC normal at 9.4. CT abdomen and pelvis showed gall stones and sludge, cholecystitis. No evidence of pancreatitis on imaging. [facility] will see the patient in the ED, determine if he needs ERCP or further imaging. Principal Diagnosis Gallstone pancreatitis status post cholecystectomy and ERCP with stone removal Discharge Exam Constitutional well developed and average body habitus Eyes no conjunctival abnormality and no scleral abnormality Neck normal visual inspection and trachea midline Respiratory normal respiratory effort; no respiratory distress Auscultation: lungs clear to auscultation bilaterally Cardiovascular RRR, no murmur, no edema Gastrointestinal (Abdomen) normal bowel sounds, soft, nontender, no hepatosplenomegaly Musculoskeletal no cyanosis or clubbing, extremities motor strength 5/5 Discharge Data Allergies Allergy/AdvReac Type Severity Reaction Status Date / Time oxycodone [From OxyContin] Allergy Unknown Hallucinati Verified 10/12/18 12:29 ng Sulfa (Sulfonamide Allergy Unknown rash Verified 10/12/18 12:29 Antibiotics) lisinopril AdvReac Mild cough Verified 10/12/18 12:29 ciprofloxacin [From Cipro] AdvReac Unknown see notes Verified 10/12/18 12:29 metoclopramide AdvReac Unknown Depression Verified 10/12/18 12:29 Consultations 10/12/18 13:27 ED Decision to Admit Stat 10/12/18 15:42 Consult Gastroenterology Routine Consult General Surgery Routine 10/12/18 22:04 Consult Case Management - Discharge Planning Routine Procedures Performed Operation Date: 10/14/18 13:30 Actual Procedures p Laparoscopic Cholecystectomy - Jefferson Hurley, DO s Endoscopic Retrograde Cholangiopancreatogram - Yamini Beck MD Ordered Studies 10/12/18 11:03 CT abd pelvis IV con only Stat 10/13/18 01:30 MR MRCP Routine 10/14/18 13:30 FL ERCP biliary ductal Routine Hospital Course (1) Cholecystitis: acute cholecystitis on CT, has elevated in bili, alk phos and AST/ALT Zosyn, consult GI and general surgery, ERCP stone extraction and cholecystectomy on 10/14 Tolerated advancing diet will be discharged home on Augmentin as he also does have evidence of a bacterial infection versus colonization 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 Santana and urology at [facility] hold Macrobid for now since he will be on Augmentin urine is growing gram negatives given his vesicular fistula previously the patient grew Proteus species which was pansensitive Total Time Total Time Spent Total Time Spent (In Minutes): greater than 30 minutes were required to prepare discharge Discharge Plan Discharge Items Patient Disposition: Home - Home Health Services Reason For Visit: GALLSTONE PANCREATITIS Discharge Diagnosis: gall stone pancreatitis, s/p gall bladder removal Discharge Goals: Decrease discomfort and Diagnostic testing Activity: Per 'Additional Instructions' section Lifting: No more than 10 pounds Bathing: No limitations Driving/Machine Use: Resume 3 days after discharge Non-emergency contact: Surgeon Call non-emergency contact if: you have any medication questions, your pain is not controlled, you have a fever, your temperature is above 101.5, your wound has increased redness, your wound has increased drainage and your wound pain has increased Follow-up/Referrals: Jefferson Hurley, [Surgeon] - (call for appnt in next 7-10 days) Diet: Regular Addtl Provider Instructions: please follow up with surgery Prescriptions: New amoxicillin-pot clavulanate [Augmentin] 875-125 mg tablet 1 tab PO BID Qty: 14 RF: 0 Continue multivitamin [Multiple Vitamins] Tablet 1 tab PO QAM RF: 0 citalopram 10 mg Tablet 10 mg PO QAM RF: 0 isosorbide mononitrate 30 mg Tablet Extended Release 24 Hr 30 mg PO QAM RF: 0 doxycycline hyclate 50 mg Capsule 50 mg PO Q3D RF: 0 aspirin [Aspir-81] 81 mg Tablet,Delayed Release (Dr/Ec) 81 mg PO QAM RF: 0 esomeprazole magnesium [Nexium] 40 mg Capsule,Delayed Release(Dr/Ec) 40 mg PO HS RF: 0 losartan 25 mg Tablet 25 mg PO QAM RF: 0 hydrochlorothiazide 25 mg Tablet 25 mg PO QAM RF: 0 ezetimibe-simvastatin [Vytorin 10-40] 10-40 mg Tablet 1 tab PO HS RF: 0 cholecalciferol (vitamin D3) [Vitamin D3] 2,000 unit Capsule 2,000 unit PO QAM RF: 0 oxybutynin chloride 5 mg Tablet 5 mg PO TID PRN (Reason: Bladder Spasms) RF: 0 nystatin 100,000 unit/gram cream 1 appln TOP BID Qty: 15 RF: 2 triamcinolone acetonide 0.1 % cream 1 appln TOP BID Qty: 15 RF: 2 metoprolol tartrate 50 mg Tablet 50 mg PO BID RF: 0 ondansetron 4 mg Tablet,Disintegrating 4 mg PO QID PRN (Reason: Nausea) RF: 0 Discontinued nitrofurantoin monohyd/m-cryst [Macrobid] 100 mg Capsule 100 mg PO BID RF: 0 Stand-Alone Forms: Call Back Authorization, [facility] Discharge Orders: Discharge Order (Routine); Ordered 10/15/18 Ordered By: Hemant Lombardi Admission Data Admit Date/Time: 10/12/18 13:48 Attending Provider: Hemant Lombardi Admit Provider: Fermin Marcos Primary Care Provider: Trae Garza Other Providers: Jefferson Hurley ; Fermin Marcos ; Jo Marcos ; Gume Santos ; Alyssa Orlando ; Román Arango ; Jaymie Mckeon ; Mariya Bone ; Blanca Kumari ; Cortes Mckeon ; Lee Almodovar ; Sandra Morfin ; Rosey Martinez ; Stefania Tillman ; Lauren Haddad ; Yamini Beck Service: Surgical Services Other Interventions: Discharge Summary Assessment (RN) Last Done: 10/15/18 17:30 DC Date/Time DO NOT enter until pt leaves facility: 10/15/18 18:16
== END 2018-10-15 18:16 | disposition home or self-care (01) | DRG 417 ==
LOC: ED 10:54 → 2E 14:58 → SUATTDRO 15:36 → 3N 10-13 14:31

== ENCOUNTER 2019-04-17 12:12 | Inpatient (IN) ==
[2019-04-17 12:52] LABS: Basophils # (auto) 0.02 K/uL (0-0.2); Basophils % (auto) 0.4 %; Eosinophils # (auto) 0.19 K/uL (0-0.5); Eosinophils % (auto) 3.6 %; Hematocrit (blood only) 36.1 % (42-52); Hemoglobin 12.4 g/dL (14.0-18.0); Immature Granulocytes # (auto) 0.02 K/uL (0.00-0.02); Immature Granulocytes % (auto) 0.4 %; Lymphocytes # (auto) 0.83 K/uL (1.2-3.4); Lymphocytes % (auto) 15.9 %; Mean Corpuscular Hemoglobin 30.8 pg (25-34); Mean Corpuscular Hgb Conc 34.3 g/dL (32-36); Mean Corpuscular Volume 89.8 fL (80-100); Mean Platelet Volume 10.9 fL (7.4-10.4); Monocytes # (auto) 0.52 K/uL (0.11-0.59); Neutrophils # (auto) 3.63 K/uL (1.4-6.5); Neutrophils % (auto) 69.7 %; Platelet Count 110 K/uL (130-400); RDW Coefficient of Variation 12.7 % (11.5-14.5); RDW Standard Deviation 41.6 fL (36.4-46.3); Red Blood Count 4.02 M/uL (4.7-6.1); White Blood Count 5.21 K/uL (4.8-10.8)
--- NOTE | 2019-04-17 12:56 | XRay Report ---
XR chest 1V portable CLINICAL HISTORY: Chest pain. COMPARISON STUDY: No previous studies for comparison. FINDINGS: Dual lead left subclavian pacemaker and median sternotomy wires are noted. Moderate cardiom egaly is unchanged. There is no evidence for pulmonary edema or pneumonia. No pneumothorax or pleural effusion is noted. There are numerous old right rib fractures. IMPRESSION: No acute cardiopulmonary findings. Electronically signed by: Blake Mayo M.D. 04/17/2019 12:54 PM
[2019-04-17 13:06] LABS: INR 1.1 (0.9-1.1); Partial Thromboplastin Time 27.1 Seconds (21.0-31.0); Prothrombin Time 10.9 Seconds (9.0-12.0)
[2019-04-17 13:20] LABS: Albumin Globulin Ratio 0.9 (0.9-2); Albumin Level 3.4 gm/dl (3.4-5.0); BUN Creatinine Ratio 20.7 (10-20); Bilirubin,Total 0.6 mg/dl (0.2-1); Calcium 8.7 mg/dl (8.5-10.1); Creatinine Clr Calc Pharmacy 70.2 ml/min; Globulin 3.8 gm/dl (2.5-4.0); Potassium 4.3 mmol/L (3.5-5.1); Total Protein 7.2 gm/dl (6.4-8.2); Troponin I 0.114 ng/ml (0-0.045)
--- NOTE | 2019-04-17 14:31 | Emergency Department Note ---
Entered by Rosey Mitchell acting as a scribe for History of Present Illness General Chief complaint: Chest Pain Time Seen by Provider: 04/17/19 12:23 Source: patient, family and EMS Mode of arrival: EMS History of Present Illness Onset (ago): day(s) 3 Location: chest Pain Consistency: + intermittent Current Pain Intensity: 0 Relieved By: + medication (Baby Aspirin, Nitro) Exacerbated By: + other (exertion) Associated symptoms: + denies other symptoms (shortness of breath, abnormal swelling of the legs.) and + other (mild headache) The patient is a 79 year old male with a history of CAD, CABG, GERD, IN, pacemaker, atrial fibrillation, COPD, hypertension, and hyperlipidemia that is presenting to the Emergency Room with complaints of intermittent chest pain that started several days ago. The patient reports that the chest pain is usually relieved by rest and Esomeprazole but he states that this treatment did not relieve his symptoms today. He states that todays episode started around 1000 this morning while he was lifting a mattress. He notes that he took 4 baby aspirin and one nitro prior to arrival, which relieved his pain. He states that the pain was 4/10 when it started and is now 0/10. He notes a mild headache currently. He denies any shortness of breath or abnormal swelling in his legs. He notes that he has similar episodes whenever he exerts himself. The patient reports that he had a bypass in 2012 following a perforated right coronary artery that occurred during a cardiac catheterization at [place]. He states that he had his last cardiac catheterization last year in [place] and denies that he had any stents placed at that time. He denies that he has had to use additional Nitro other than his daily long acting dose. He notes that he is followed by Dr. Blackwell, Cardiology, for regular care. The patients family states that the patients service center appraiser has recommended that he have a repeat cardiac catheterization completed soon. EMS notes that the patients blood pressure was elevated prior to arrival to the ED but states that his blood pressure is in the 140s currently. Home Medications Home Medications Medication Instructions Recorded Confirmed Type aspirin [Aspir-81] 324 mg PO QAM 06/19/18 04/17/19 History cholecalciferol (vitamin D3) 2,000 unit PO QAM 06/19/18 04/17/19 History [Vitamin D3] citalopram 10 mg PO QAM 06/19/18 04/17/19 History esomeprazole magnesium [Nexium] 40 mg PO HS 06/19/18 04/17/19 History ezetimibe-simvastatin [Vytorin 1 tab PO HS 06/19/18 04/17/19 History 10-40] hydrochlorothiazide 25 mg PO QAM 06/19/18 04/17/19 History losartan 25 mg PO QAM 06/19/18 04/17/19 History multivitamin [Multiple Vitamins] 1 tab PO QAM 06/19/18 04/17/19 History metoprolol tartrate 50 mg PO BID 09/04/18 04/17/19 History triamcinolone acetonide 1 appln TOP BID #15 gm 09/29/18 04/17/19 Rx isosorbide mononitrate ER 60 mg 60 mg PO DAILY #30 tab 03/16/19 04/17/19 History tablet,extended release 24 hr trospium 20 mg tablet 20 mg PO BID #60 tab 03/16/19 04/17/19 History Allergies Allergy/AdvReac Type Severity Reaction Status Date / Time oxycodone [From OxyContin] Allergy Unknown Hallucinati Verified 04/17/19 12:52 ng Sulfa (Sulfonamide Allergy Unknown rash Verified 04/17/19 12:52 Antibiotics) lisinopril AdvReac Mild cough Verified 04/17/19 12:52 ciprofloxacin [From Cipro] AdvReac Unknown see notes Verified 04/17/19 12:52 metoclopramide AdvReac Unknown Depression Verified 04/17/19 12:52 Past Med/Surg History Medical History A-fib INCIDENTAL A.FIB/A. 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 CABG X3 Hyperlipidemia Kyphosis Pulmonary HTN RVSP 40-50MMHG Rosacea SMA stenosis ASYMPTOMATIC; "INCIDENTAL FINDING" PER CARDIO Sleep apnea CPAP UTI (urinary tract infection) RE-OCCURING , ED 09/04/18 - CATH CHANGE AND AWAITING URINE CULTURE Surgical History H/O cystoscopy multiple. most recent 09/29/[address] Santana. MAC. No issues. History of arthroplasty of right knee History of cardiac cath (HX MULTIPLE CATHS/TOTAL OF 2 STENTS) MOST RECENT...03/25/18 ABNORMAL STRESS TEST/NO STENTS History of robot-assisted laparoscopic radical prostatectomy Hx of bilateral cataract extraction WITH LASIK PROCEDURE Hx of colonoscopy Hx of heart bypass surgery S/P CABG X 3 (2012) Hx of tooth extraction Social History Preferred Language: Uzbek Communication Ability: Effective Visual Impairment: No Limitations Melter Assistant Required: Yes Beliefs That Will Affect Care: None Current Living Situation: Spouse Feels Safe at Home: Yes Smoking Status: Former smoker Tobacco Type: cigarettes ; Cigarettes Per Day: QUIT 30 YRS AGO. Smoked 1ppd x 20 years. ; Hx Alcohol Use: Yes Alcohol type: hard liquor Hx Substance Use: No Review of Systems See HPI for pertinent positives & negatives. and A total of 10 systems reviewed and were otherwise negative Physical Exam Vital Signs Vital Signs - 24 hr 04/17/19 12:20 04/17/19 12:30 04/17/19 13:00 Temperature 36.8 C Temperature Source Oral Sepsis Recent Fever Within 48 Hours No Sepsis New/Unexplained Change in Mental Status No Sepsis Action Taken by Nursing No Action Required Pulse Rate 77 75 79 Pulse Rate from SpO2 Sensor 74 72 Respiratory Rate 24 19 18 Respiratory Effort / Characteristics Non-Labored Spontaneous Respiratory Depth Normal Respiratory Pattern Regular Blood Pressure 125/80 127/81 130/73 Blood Pressure Mean 95 96 92 Pulse Oximetry 96 97 95 Oxygen Delivery Method Room Air Room Air Room Air 04/17/19 13:30 04/17/19 14:00 Temperature Temperature Source Sepsis Recent Fever Within 48 Hours Sepsis New/Unexplained Change in Mental Status Sepsis Action Taken by Nursing Pulse Rate 68 71 Pulse Rate from SpO2 Sensor 66 60 Respiratory Rate 16 22 Respiratory Effort / Characteristics Respiratory Depth Respiratory Pattern Blood Pressure 129/61 127/63 Blood Pressure Mean 83 84 Pulse Oximetry 96 95 Oxygen Delivery Method Room Air Room Air GENERAL: Patient is awake, alert, and in no acute distress.Patient is resting comfortably and showing no signs of anxiety EYES: The conjunctivae are clear. The pupils are round and reactive. EARS, NOSE, MOUTH AND THROAT: The nose is without any evidence of any deformity. Mucous membranes are moist.Tongue is midline NECK: The neck is nontender and supple. RESPIRATORY: Normal respiratory effort is noted. There is no evidence of wheezing rhonchi or rales to auscultation. CARDIOVASCULAR: Regular rate and rhythm noted. There no murmurs rubs or gallops normal S1 normal S2 GASTROINTESTINAL: The abdomen is soft. Bowel sounds are present in all quadran ts. Abdomen is nontender. MUSCULOSKELETAL/EXTREMITIES: There is no evidence of gross deformity. Full range of motion is noted in the hips and shoulders. SKIN: There is no obvious evidence of any rash. There are no petechiae, pallor or cyanosis noted. Bilateral pedal edema. Skin is pale, cool, and dry. NEUROLOGIC: Patient is awake alert and oriented x3. Course 1217:The patient was evaluated in room C10. A complete history and physical examination was performed. 1320: An elevated troponin was noted at this time. The patient will be kept for additional observation. 1409: I updated the patient on his current lab and imaging results. He is resti ng comfortably at this time. He is amenable to the treatment plan. 1422: I discussed the patient's case with KAY Alvarado, who will evaluate the patient for further management and care with Dr. Marcos as the attending physician. 1430: Upon reevaluation, the patient is resting comfortably. I discussed laboratory and radiographic results with the patient. He verbalized agreement of the treatment plan. The patient will be evaluated for further management and care. Consultations Consultation #1: I discussed the patient's case with KAY Alvarado, who will evaluate the patient for further management and care with Dr. Marcos as the attending physician. Time: 14:22 Medical Decision Making Differential Diagnosis Differential diagnosis: Etiologies such as cardiac ischemia, aortic dissection, pulmonary embolism, pneumonia, pneumothorax, musculoskeletal, infections, pericarditis, myocarditis, esophageal rupture, gastrointestinal, as well as others were entertained. Medical Records Attestation: I reviewed the patient's medical records. Home Medications Current Medication List: was personally reviewed by me Laboratory Data Attestation: I reviewed the patient's lab results. Result diagrams: 04/17/19 12:31 04/17/19 12:31 Lab Results 04/17/19 04/17/19 04/17/19 Range/Units 12:31 12:31 12:31 WBC 5.21 (4.8-10.8) K/uL RBC 4.02 L (4.7-6.1) M/uL Hgb 12.4 L (14.0-18.0) g/dL Hct 36.1 L (42-52) % MCV 89.8 (80-100) fL MCH 30.8 (25-34) pg MCHC 34.3 (32-36) g/dL RDW Std Deviation 41.6 (36.4-46.3) fL RDW Coeff of Ricky 12.7 (11.5-14.5) % Plt Count 110 L (130-400) K/uL MPV 10.9 H (7.4-10.4) fL Immature Gran % (Auto) 0.4 % Neut % (Auto) 69.7 % Lymph % (Auto) 15.9 % Wayne % (Auto) 10.0 % Eos % (Auto) 3.6 % Baso % (Auto) 0.4 % Immature Gran # (Auto) 0.02 (0.00-0.02) K/uL Neut # (Auto) 3.63 (1.4-6.5) K/uL Lymph # (Auto) 0.83 L (1.2-3.4) K/uL Wayne # (Auto) 0.52 (0.11-0.59) K/uL Eos # (Auto) 0.19 (0-0.5) K/uL Baso # (Auto) 0.02 (0-0.2) K/uL PT 10.9 (9.0-12.0) Seconds INR 1.1 (0.9-1.1) APTT 27.1 (21.0-31.0) Seconds PTT Ratio 1.0 Sodium 142 (136-145) mmol/L Potassium 4.3 (3.5-5.1) mmol/L Chloride 108 H (98-107) mmol/L Carbon Dioxide 28 (21-32) mmol/L Anion Gap 6.0 (3-11) BUN 23 H (7-18) mg/dl Creatinine 1.12 (0.6-1.4) mg/dl Est Cr Clr Drug Dosing 70.2 ml/min Est GFR ( Amer) 73.0 Est GFR (Non-Af Amer) 63.0 BUN/Creatinine Ratio 20.7 H (10-20) Glucose 108 H (70-99) mg/dl Calcium 8.7 (8.5-10.1) mg/dl Total Bilirubin 0.6 (0.2-1) mg/dl AST 20 (15-37) U/L ALT 21 (12-78) U/L Alkaline Phosphatase 67 (45-117) U/L Troponin I 0.114 H* (0-0.045) ng/ml Total Protein 7.2 (6.4-8.2) gm/dl Albumin 3.4 (3.4-5.0) gm/dl Globulin 3.8 (2.5-4.0) gm/dl Albumin/Globulin Ratio 0.9 (0.9-2) Lipase 79 (73-393) U/L Specimen Hemolysis Imaging Data Radiologist's Impression: Radiology results as stated below per my review and the radiologist's interpretation: XR chest 1V portable CLINICAL HISTORY: Chest pain. COMPARISON STUDY: No previous studies for comparison. FINDINGS: Dual lead left subclavian pacemaker and median sternotomy wires are noted. Moderate cardiomegaly is unchanged. There is no evidence for pulmonary edema or pneumonia. No pneumothorax or pleural effusion is noted. There are numerous old right rib fractures. IMPRESSION: No acute cardiopulmonary findings. Electronically signed by: Blake Mayo M.D. 04/17/2019 12:54 PM ECG Data Attestation: I personally reviewed and interpreted this ECG as follows: Indication: chest pain Rate (beats per minute): 76 Rhythm: other (ventrically-paced) Findings: + PVC and + paced rhythm Comparison ECG Date: from (10/12/18) Change: no significant change Blood Pressure Blood Pressure Findings: Normal blood pressure MDM Narrative The patient is a 79-year-old male who presented to the emergency department with exertional chest pain. The patient has a history of coronary artery disease as well as bypass grafting. He was treated with aspirin and nitroglycerin prior to arrival. Upon arrival to our emergency department the patient's pain is significantly improved. I discussed the patient's laboratory and radiographic studies with him. I also discussed the limitations of the emergency department work-up for chest pain with him. At this time the patient was found to have an elevated troponin. He has a pacemaker so interpretation of his EKG is difficult. I discussed his case with the on-call [facility] hospitalist group. They have agreed to evaluate the patient in the emergency department for further management disposition. The patient was reevaluated multiple times. He continues to be pain-free. Impression & Plan Chest pain, Elevated troponin Discharge Plan Visit Data Chief Complaint: Chest Pain ED Provider: Cortes Lerner Discharge Problem: Chest pain, Elevated troponin Patient Disposition: Being Evaluated by Hospitalist Forms Stand Alone Forms: Call Back Authorization, My [facility] Prescriptions Prescriptions: No Action isosorbide mononitrate 60 mg tablet extended release 24 hr 60 mg PO DAILY Qty: 30 RF: 0 trospium 20 mg tablet 20 mg PO BID Qty: 60 RF: 0 multivitamin [Multiple Vitamins] Tablet 1 tab PO QAM RF: 0 citalopram 10 mg Tablet 10 mg PO QAM RF: 0 aspirin [Aspir-81] 81 mg Tablet,Delayed Release (Dr/Ec) 324 mg PO QAM RF: 0 esomeprazole magnesium [Nexium] 40 mg Capsule,Delayed Release(Dr/Ec) 40 mg PO HS RF: 0 losartan 25 mg Tablet 25 mg PO QAM RF: 0 hydrochlorothiazide 25 mg Tablet 25 mg PO QAM RF: 0 ezetimibe-simvastatin [Vytorin 10-40] 10-40 mg Tablet 1 tab PO HS RF: 0 cholecalciferol (vitamin D3) [Vitamin D3] 2,000 unit Capsule 2,000 unit PO QAM RF: 0 triamcinolone acetonide 0.1 % cream 1 appln TOP BID Qty: 15 RF: 2 metoprolol tartrate 50 mg Tablet 50 mg PO BID RF: 0 Referrals Referrals: Trae Garza [Primary Care Provider] - Discharge Problem: Chest pain Qualifiers: Chest pain type: unspecified Qualified Code(s): R07.9 - Chest pain, unspecified The scribe's documentation has been prepared under my direction and personally reviewed by me in its entirety. I confirm that the note above accurately reflects all work, treatment, procedures, and medical decision making performed by me.
--- NOTE | 2019-04-17 16:04 | History & Physical Report ---
Date of Service April 17, 2019 Assessment & Plan (1) Chest pain: - Unstable Angina vs NSTEMI - Has long-standing angina however normally only lasts 3-4 minutes - this episode occurred after lifting a mattress to place a bed skirt and lasted approx. 1 hour - relieved with NTG upon EMS arrival - Troponin at 0.114 and no evidence of chronic elevated troponins - EKG with ventricularly paced rhythm making ischemic findings difficult - currently remains CP free since arrival - Monitor on telemetry and trend cardiac markers - given the length of pain suspect this could be an evolving event but troponin trend will assist with determination - Initiate heparin gtt and monitor - does appear to have a chronic thrombocytopenia so monitor for HIT/bleeding - Consult cardiology - discussed with Dr. Garcia - plan as above - pending troponin trend and echocardiogram may need to consider catheterization -- As discussed with family - due to his history of dissection during PCI they prefer catheterizations be completed at a facility with surgical repair options - at this time an emergent cath is not necessary but possibility of one may mean transfer to another facility this admission vs stabilization and outpatient catheterization -- If chest pain would continue or become unstable may need transfer for more emergent catheterization Present on Admission?: Yes (2) CAD (coronary artery disease): - H/O CAD S/P PCI with RCA Dissection and ultimate CABG; AV Block S/P Pacer, Paroxysmal A Flutter/SVT, HTN, HLD, Mild MR, Mild Pulm HTN - Continue home ASA 324 mg daily, Ezetimibe/Simvastatin daily, HCTZ 25 mg daily, Isosorbide mononitrate 60 mg daily Losartan 25 mg daily, Metoprolol 50 mg BID, and Ranexa 500 mg BID - Patient reports his Isosorbide was increased to 60 mg and the addition of Ranexa was implemented to try and assist with chronic angina however currently not completely effective per report Present on Admission?: Yes (3) Essential hypertension: - STABLE - Treatment as above Present on Admission?: Yes (4) Thrombocytopenia: - Appears to have a chronic thrombocytopenia - monitor in setting of heparin administration Present on Admission?: Yes (5) EILEEN on CPAP: - Set up CPAP Present on Admission?: Yes (6) COPD (chronic obstructive pulmonary disease): - Reports chronic productive cough - denies changes in consistency or amount of sputum; no acute exacerbation at this time Present on Admission?: Yes (7) DVT prophylaxis: - Heparin gtt Disposition: Anticipate return home on D/C when medically stable History of Present Illness Mr. Sesay is a 79 y/o male with PMHx of CAD S/P PCI (with RCA dissection) and S/P CABG, AV Block S/P Pacer, Paroxsymal A Flutter/SVT, HTN, HLD, Mild Pulm HTN, H/O Bladder Fistula and Recurrent UTIs, and SMA Stenosis who presents to the ED by EMS for chest pain that occurred earlier today. Patient has a long standing history of angina and follows with Dr. Blackwell as well as Dr. Parker for cathet erizations. He reports his normal angina symptoms come on after exertion but normally can do those tasks for several minutes before symptoms occur and normally only last 3-4 minutes and resolve with rest. However, over the past couple days he notes that sometimes the chest pain comes on at rest but again would still resolve in 3-4 minutes. He also notes that sometimes his chest discomfort can be relieved with Nexium however he notes his GERD has been less responsive to this medication and has a GI F/U in near future. However, today he was helping his lift a mattress up to place a bed skirt on when he developed almost instantaneous L sided chest pain. Pain did not radiate and felt like his normal angina. However, the pain continued for approx. one hour. In this timeframe he did take a loading dose of aspirin with no relief. When EMS arrived he was given NTG which did completely resolve his chest pain. He continues to be chest pain free in the ED. He denies nausea/vomiting and states he has been in his normal state of health. He does endorse a chronic productive cough but has underlying COPD and notes no changes in mucous production. reports a heart catheterization with Dr. Parker approx. one year ago which she was told was a clean cath. In the ED, patient's troponin is currently at 0.114 and appears to not have a baseline elevated troponin. Primary Care Provider: Trae Garza Allergies Allergy/AdvReac Type Severity Reaction Status Date / Time oxycodone [From OxyContin] Allergy Unknown Hallucinati Verified 04/17/19 12:52 ng Sulfa (Sulfonamide Allergy Unknown rash Verified 04/17/19 12:52 Antibiotics) lisinopril AdvReac Mild cough Verified 04/17/19 12:52 ciprofloxacin [From Cipro] AdvReac Unknown see notes Verified 04/17/19 12:52 metoclopramide AdvReac Unknown Depression Verified 04/17/19 12:52 Home Medications Home Medications Medication Instructions Recorded Confirmed Type aspirin [Aspir-81] 324 mg PO QAM 06/19/18 04/17/19 History cholecalciferol (vitamin D3) 2,000 unit PO QAM 06/19/18 04/17/19 History [Vitamin D3] citalopram 10 mg PO QAM 06/19/18 04/17/19 History esomeprazole magnesium [Nexium] 40 mg PO HS 06/19/18 04/17/19 History ezetimibe-simvastatin [Vytorin 1 tab PO HS 06/19/18 04/17/19 History 10-40] hydrochlorothiazide 25 mg PO QAM 06/19/18 04/17/19 History losartan 25 mg PO QAM 06/19/18 04/17/19 History multivitamin [Multiple Vitamins] 1 tab PO QAM 06/19/18 04/17/19 History metoprolol tartrate 50 mg PO BID 09/04/18 04/17/19 History triamcinolone acetonide 1 appln TOP BID #15 gm 09/29/18 04/17/19 Rx isosorbide mononitrate ER 60 mg 60 mg PO DAILY #30 tab 03/16/19 04/17/19 History tablet,extended release 24 hr trospium 20 mg tablet 20 mg PO BID #60 tab 03/16/19 04/17/19 History ranolazine 500 mg PO BID 04/17/19 04/17/19 History Past Med/Surg History Medical History A-fib INCIDENTAL A.FIB/A. 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 ON ANTICOAGULATION AT THIS TIME IN SETTING OF HEMATURIA - ONLY ONE EPISDOE OF AFIB IN HX Arrhythmia HX PAROXYSMAL A FIB/A FLUTTER/NSVT/FREQUENT VENTRICULAR ECTOPY PER RECORDS CAD (coronary artery disease) S/P CABG X3 (2012) COPD (chronic obstructive pulmonary disease) STABLE Fistula BETWEEN BLADDER AND COLON/TO EVALUATE HEALING PROCESS WITH UPCOMING PROCEDURE GERD (gastroesophageal reflux disease) History of prostate cancer History of urinary incontinence Hx of cardiac pacemaker 2/ SSS/HIGH GRADE AVB; [employer]; IMPLANTED 09/2017 LAST PACER CHECK= WEEK OF AUG 31, 2018 Hx of myocardial infarction DURING CATHERIZATION 2012 HAD DE... CABG X3 Hyperlipidemia Kyphosis Pulmonary HTN RVSP 40-50MMHG Rosacea SMA stenosis ASYMPTOMATIC; "INCIDENTAL FINDING" PER CARDIO Sleep apnea CPAP UTI (urinary tract infection) RE-OCCURING , ED 09/04/18 - CATH CHANGE AND AWAITING URINE CULTURE Surgical History H/O cystoscopy multiple. most recent 09/29/[address] Santana. MAC. No issues. History of arthroplasty of right knee History of cardiac cath (HX MULTIPLE CATHS/TOTAL OF 2 STENTS) MOST RECENT...03/25/18 ABNORMAL STRESS TEST/NO STENTS History of robot-assisted laparoscopic radical prostatectomy Hx of bilateral cataract extraction WITH LASIK PROCEDURE Hx of colonoscopy Hx of heart bypass surgery S/P CABG X 3 (2012) Hx of tooth extraction Family History Other Hypertension Social History Preferred Language: Tajik Communication Ability: Effective Visual Impairment: No Limitations Video Tape Transferrer Required: Yes Beliefs That Will Affect Care: None Current Living Situation: Spouse Other Information That Helps Us Care for You: No Feels Safe at Home: Yes Safety Concerns: Feels Safe At This Time Smoking Status: Former smoker Tobacco Type: cigarettes ; Cigarettes Per Day: QUIT 30 YRS AGO. Smoked 1ppd x 20 years. ; Do You Dip or Chew Tobacco: No ; Second Hand Exposure: No ; Tobacco Cessation Education Requested by Patient: No Hx Alcohol Use: Yes Alcohol type: hard liquor Hx Substance Use: No Review of Systems Constitutional: no fever, no chills, no fatigue, no weight loss and no weight gain Eyes: no worsening vision Ear, Nose, Mouth, Throat: no nasal congestion and no sore throat Respiratory: + cough (chronic); no dyspnea and no wheezing Cardiovascular: + chest pain (earlier today but resolved); no radiating jaw, neck or arm pain, no palpitations, no lightheadedness, no edema and no calf pain Gastrointestinal: no abdominal pain, no nausea, no vomiting, no constipation and no diarrhea/loose stools Genitourinary: no dysuria Musculoskeletal: no body aches Integumentary: no rash Neurologic: no headache(s) Physical Exam Constitutional: WD/WN, vitals as above Eyes: + anicteric sclerae ENMT: Ears: no hearing impairment Neck: normal visual inspection and trachea midline Respiratory: normal respiratory effort, lungs clear to auscultation Auscultation: + diminished lung sounds Cardiovascular: RRR, no murmur, no edema Vessels: no JVD Gastrointestinal (Abdomen): Inspection/Auscultation: normal bowel sounds Percussion/Palpation: abdomen soft; abdomen nontender Musculoskeletal: Head/Neck/Chest: normocephalic and head atraumatic Skin: no rashes, warm and dry Trauma: + abrasion (b/l shins, superficial, no drainage or erythema) Neurologic: moves all extremities Psychiatric: A+Ox3, euthymic affect Results & Data Vital Signs (Past 12 Hours) Vital Signs Temp Pulse Resp BP Pulse Ox 04/17/19 15:30 72 18 122/85 95 04/17/19 15:00 78 16 146/80 H 96 04/17/19 14:30 71 14 129/84 96 04/17/19 14:00 71 22 127/63 95 04/17/19 13:30 68 16 129/61 96 04/17/19 13:00 79 18 130/73 95 04/17/19 12:30 75 19 127/81 97 04/17/19 12:20 36.8 C 77 24 125/80 96 Supervising Physician Co-Signing Physician Notes Patient seen and examined with Mattie HAMLIN. I agree with her HPI, history, ROS, physical exam and A/P. Case was discussed with her as well as the daniels points in treatment. I personally reviewed the lab work and imaging and other diagnostic studies. Patient is 79 yo male with established severe CAD, s/p CABG x 3 vessels who has ongoing history of stable angina. The morning of admission he had chest pain while exerting himself that was more intense than normal angina symptoms, lasted for about one hour which is atypical and resolved after a single nitroglycerin dose. EKG was paced in the ED and his initial troponin was 0.1. Vitals stable and other lab work normal. Case was discussed with cardiology at the time of admission. - NSTEMI: patient with symptoms and rise in troponin with well established severe CAD will use antiplatelets and heparin drip check echocardiogram trend troponin until it peaks consult cardiology statin therapy patient with prior history of coronary dissection during cath so he prefers to have heart cath at [facility] where there is cardiothoracic surgical back up, so if he requires heart cath he should go to [facility] this was discussed with cardiology at the time of admission, certainly no indications for urgent catheterization so we elected to keep the patient, treat him and trend troponins, determine need for cath on 04/18 PG Care Time/CCT Total # of Minutes Spent Total Time Spent with Patient: Total time spent is greater than 50% in coordination of care (as documented) at patient's floor/unit and/or counseling patient: (1) Chest pain Chest pain type: unspecified Qualified Code(s): R07.9 - Chest pain, unspecified
[2019-04-17] MEDS ORDERED: ALUMINUM/MAGNESIUM SUSP 30 ML UDC PO PRN (17:08)
[2019-04-17] MEDS ORDERED: MoRPHine SULFATE 2 MG/ML CARP IV PRN (17:08)
[2019-04-17] MEDS ORDERED: NITROGLYCERIN SL 0.4 MG/TAB TAB SL PRN (17:08)
[2019-04-17] MEDS ORDERED: ONDANSETRON INJ 2 MG/ML 2 ML VIAL IV PRN (17:08)
[2019-04-17] MEDS ORDERED: MAGNESIUM HYDROXIDE SUSP 30 ML UDC PO PRN (17:08)
[2019-04-17] MEDS ORDERED: ACETAMINOPHEN 325 MG TAB PO PRN (17:08)
[2019-04-17] MEDS ORDERED: POLYETHYLENE (MIRALAX) 17 GM PACK PO PRN (17:08)
[2019-04-17] MEDS ORDERED: HEPARIN IV BOLUS 7,000 UNITS in SYRINGE 0 ML IV ONE (18:15)
[2019-04-17] MEDS ORDERED: Heparin Adult STANDARD Wt-Based Dextrose 5% 25,000 units/500 mL IV SCH (18:30)
[2019-04-17] MEDS: HEPARIN SODIUM/DEXTROSE 25,000 UNITS/500 ML BAG IV SCH (18:34)
[2019-04-17] MEDS: RANOLAZINE 500 MG ER TAB PO SCH (19:37)
[2019-04-17] MEDS: EZETIMIBE/SIMVASTATIN 10/40MG 1 TAB TAB PO SCH (19:37)
[2019-04-17] MEDS: METOPROLOL TARTRATE 50 MG TAB PO SCH (19:37)
[2019-04-18] MEDS ORDERED: COUGH DROP (SUGAR FREE) LOZ 24 LOZ/1 BOX BUCCAL ONE (00:26)
[2019-04-18] MEDS ORDERED: COUGH DROP (SUGAR FREE) LOZ 24 LOZ/1 BOX BUCCAL PRN (00:36)
[2019-04-18 01:00] LABS: Partial Thromboplastin Ratio 3.4
[2019-04-18 01:04] LABS: Partial Thromboplastin Time 93.1 Seconds (21.0-31.0)
[2019-04-18] MEDS ORDERED: PERFLUTREN LIPID MICROSPHERE (DEFINITY) IV ONE (08:40)
[2019-04-18 08:59] LABS: Partial Thromboplastin Ratio 2.1
[2019-04-18 09:14] LABS: BUN Creatinine Ratio 17.6 (10-20); Calcium 9.1 mg/dl (8.5-10.1); Creatinine Clr Calc Pharmacy 69.2 ml/min; Est GFR (African American) 73.8; Est GFR (Non-African American) 63.7; Potassium 3.5 mmol/L (3.5-5.1)
[2019-04-18] MEDS: CHOLECALCIFEROL 1,000 UNITS TAB PO SCH (09:19)
[2019-04-18] MEDS: LOSARTAN POTASSIUM 25 MG TAB PO SCH (09:19)
[2019-04-18] MEDS: MULTIVITAMIN TAB PO SCH (09:19)
[2019-04-18] MEDS: ISOSORBIDE MONO EXTENDED REL 60 MG TABCR PO SCH (09:19)
[2019-04-18] MEDS: hydroCHLOROthiazide 25 MG TAB PO SCH (09:19)
[2019-04-18] MEDS: CITALOPRAM 20 MG TAB PO SCH (09:20)
[2019-04-18] MEDS: METOPROLOL TARTRATE 50 MG TAB PO SCH ×3 (09:20→19:40)
[2019-04-18] MEDS: PANTOprazole 40 MG TAB PO SCH (09:20)
[2019-04-18] MEDS: ASPIRIN 325 MG ECTAB PO SCH (09:20)
[2019-04-18] MEDS: RANOLAZINE 500 MG ER TAB PO SCH ×2 (09:20→19:40)
[2019-04-18 10:21] LABS: Partial Thromboplastin Time 56.3 Seconds (21.0-31.0)
--- NOTE | 2019-04-18 10:56 | Cardiology Consultation ---
Date of Consultation April 18, 2019 Assessment & Plan (1) Non-ST elevation (NSTEMI) myocardial infarction: Had prolonged episode of angina yesterday with peak troponin of 0.913, consistent with very mild PR. He has documented multivessel CAD with patent grafts 1 year ago with moderate disease in small OM per cath report. He has been angina free since admission. Continue heparin for 48 hours from presentation. Continue aspirin 81 mg daily. Continue statin therapy. We discussed treatment strategies. He prefers to have cardiac catheterization done at [facility] if necessary given prior RCA dissection done at other outside facility in the past. There is no urgent indication for cardiac catheterization. Echo is pending. Not likely that 1 of his bypass grafts have become occluded given small rise in troponin. Most likely culprit would be small-vessel disease or his small caliber OM which was moderately diseased last year. If this vessel is too small for intervention, medical therapy would be recommended. Could consider Lexiscan myocardial perfusion study while hospitalized early this week. Will discussed with his primary automobile body repair chief, Dr. Blackwell, when he returns tomorrow. For now, continue Medical therapy, including beta-alyssa, nitrate, Ranexa. Will titrate beta-alyssa to see if it offers any further benefit. Could also further titrate Ranexa and also add calcium channel alyssa. (2) CAD (coronary artery disease): Status post CABG x3. Continue medical therapy and treatment as above. (3) S/P CABG (coronary artery bypass graft): Patent ROBERTO to LAD, SVG to ramus, SVG to PDA in March of 2018. (4) Essential hypertension: Blood pressure has been mostly normotensive with occasional hypertension. Adjusting beta-alyssa as above for antianginal benefits. (5) S/P placement of cardiac pacemaker: Placed for high-grade AV block with syncope in the past. No further syncope. Followed by EP. Disposition: Plan of care discussed with Dr. Marcos of the primary hospitalist service. Dr. Blackwell, his primary automobile body repair chief, resume his care tomorrow. Thank you for allowing me to participate in the care of your patient. Please call for any other questions or concerns. Sincerely, Marco Garcia M.D. History of Present Illness Reason for Consultation: Angina. Elevated troponin. Requesting Physician: Dr. Martita Marcos Attending Physician: Fermin Marcos, DO History of Present Illness Mr. Sesay is a pleasant 79-year-old gentleman with a history significant for multivessel CAD, RCA PCI (Dr. Arechiga in [place]) in 2009, 3 vessel CABG (roberto to LAD, SVG to PL, SVG to ramus) in December of 2012 at [facility] following complication of attempted RCA PCI at [place]. He also has a history significant for hypertension, asymptomatic PAT/SMA stenosis, and symptomatic high-grade AV block status post [employer]tr[employer] dual-chamber pacemaker (Dr. Patterson). His primary automobile body repair chief is Dr. Blackwell. He was recently seen by Dr. Blackwell on 03/26/2019 with symptoms concerning for angina. He was being treating medically. Symptoms have been present the past few months and have not been progressing but rather stable, occurring with certain activities such as using a push mower, and walking on a treadmill at the [facility]. His symptoms have resolved with rest within a few minutes. On occasion, there would be radiation of the pain to his left neck / shoulder area but no associated shortness of breath or diaphoresis. Yesterday however, while holding up a mattress to make a bed, he experienced the same type of left-sided chest discomfort that did not resolve with rest. After approximately 1 hour, his called for EMS who gave him 1 spray of nitroglycerin, which resolved his pain. He has not had any further chest discomfort and also denies shortness of breath. He has been taking isosorbide mononitrate 60 mg daily. He did a short trial of 120 mg daily for a few days with no improvement in his symptoms. At his last visit on 03/26/2019, ranolazine 500 mg twice daily was initiated and he believes that this may have offered some improvement overall, despite yesterday's episode. He underwent myocardial perfusion study and cardiac catheterization last year. Cardiac catheterization was performed at [facility] by Dr. Parker. Cardiac catheterization at that time demonstrated patent grafts and moderate CAD in a small caliber circumflex/OM. He denies melena, hematochezia, hematuria, syncope, near-syncope, palpitations, edema, abdominal pain, nausea, vomiting, fevers or chills. He has had the following studies /procedures: 1. echo 06/2018: Mild LVH. EF 50-55%. Hypokinesis of inferior base. Mild AI. 2. Cardiac catheterization [facility] 03/25/2018: Mid LAD 80%. Patent ROBERTO to LAD. Proximal ramus 90%. Patent SVG to ramus. Circumflex gives off only 1 small OM, with diffuse 50-60% stenosis. Proximal RCA 100%. Patent SVG to PDA. 3. Nuclear stress 04/02/2018: Mild ischemia mid anterolateral, apical lateral segments. Fixed inferior base to mid perfusion defect. EF 37% with inferior hypokinesis and paradoxical septal motion consistent with postoperative state. Review of systems: As above. Review of systems otherwise negative/unremarkable. Family history: No known premature CAD. Social history: Quit smoking approximately 35 years ago. Two mixed drinks per night. Lives at home with his , granddaughter, and granddaughter is fimarke. He is to his second . He has 2 biologic children. His second has 2 children. They have several grandchildren. 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 His is a retired nurse. He was alone during our meeting. Allergies Allergy/AdvReac Type Severity Reaction Status Date / Time oxycodone [From OxyContin] Allergy Unknown Hallucinati Verified 04/17/19 12:52 ng Sulfa (Sulfonamide Allergy Unknown rash Verified 04/17/19 12:52 Antibiotics) lisinopril AdvReac Mild cough Verified 04/17/19 12:52 ciprofloxacin [From Cipro] AdvReac Unknown see notes Verified 04/17/19 12:52 metoclopramide AdvReac Unknown Depression Verified 04/17/19 12:52 Home Medications Home Medications Medication Instructions Recorded Confirmed Type aspirin [Aspir-81] 324 mg PO QAM 06/19/18 04/17/19 History cholecalciferol (vitamin D3) 2,000 unit PO QAM 06/19/18 04/17/19 History [Vitamin D3] citalopram 10 mg PO QAM 06/19/18 04/17/19 History esomeprazole magnesium [Nexium] 40 mg PO HS 06/19/18 04/17/19 History ezetimibe-simvastatin [Vytorin 1 tab PO HS 06/19/18 04/17/19 History 10-40] hydrochlorothiazide 25 mg PO QAM 06/19/18 04/17/19 History losartan 25 mg PO QAM 06/19/18 04/17/19 History multivitamin [Multiple Vitamins] 1 tab PO QAM 06/19/18 04/17/19 History metoprolol tartrate 50 mg PO BID 09/04/18 04/17/19 History triamcinolone acetonide 1 appln TOP BID #15 gm 09/29/18 04/17/19 Rx isosorbide mononitrate ER 60 mg 60 mg PO DAILY #30 tab 03/16/19 04/17/19 History tablet,extended release 24 hr trospium 20 mg tablet 20 mg PO BID #60 tab 03/16/19 04/17/19 History ranolazine 500 mg PO BID 04/17/19 04/17/19 History Patient History Medical History A-fib INCIDENTAL A.FIB/A. FLUTTER NOTED PER PACER CHECK; ON BETA ALYSSA; CARDIO HOLDING OFF ON ANTICOAGULATION AT THIS TIME IN SETTING OF HEMATURIA - ONLY ONE EPISDOE OF AFIB IN HX Arrhythmia HX PAROXYSMAL A FIB/A FLUTTER/NSVT/FREQUENT VENTRICULAR ECTOPY PER RECORDS CAD (coronary artery disease) S/P CABG X3 (2012) COPD (chronic obstructive pulmonary disease) STABLE Fistula BETWEEN BLADDER AND COLON/TO EVALUATE HEALING PROCESS WITH UPCOMING PROCEDURE GERD (gastroesophageal reflux disease) History of prostate cancer History of urinary incontinence Hx of cardiac pacemaker 2/2 SSS/HIGH GRADE AVB; [employer]; IMPLANTED 09/2017 LAST PACER CHECK= WEEK OF AUG 31, 2018 Hx of myocardial infarction DURING CATHERIZATION 2012 HAD PR... CABG X3 Hyperlipidemia Kyphosis Pulmonary HTN RVSP 40-50MMHG Rosacea SMA stenosis ASYMPTOMATIC; "INCIDENTAL FINDING" PER CARDIO Sleep apnea CPAP UTI (urinary tract infection) RE-OCCURING , ED 09/04/18 - CATH CHANGE AND AWAITING URINE CULTURE Surgical History H/O cystoscopy multiple. most recent 09/29/[address] Santana. PARISA. No issues. History of arthroplasty of right knee History of cardiac cath (HX MULTIPLE CATHS/TOTAL OF 2 STENTS) MOST RECENT...03/25/18 ABNORMAL STRESS TEST/NO STENTS History of robot-assisted laparoscopic radical prostatectomy Hx of bilateral cataract extraction WITH LASIK PROCEDURE Hx of colonoscopy Hx of heart bypass surgery S/P CABG X 3 (2012) Hx of tooth extraction Family History Other Hypertension Social History Preferred Language: Bhutanese Communication Ability: Effective Visual Impairment: No Limitations Show Host Or Hostess Required: Yes Beliefs That Will Affect Care: None marital status: Current Living Situation: Spouse Other Information That Helps Us Care for You: No Feels Safe at Home: Yes Safety Concerns: Feels Safe At This Time Smoking Status: Former smoker Tobacco Type: cigarettes ; Cigarettes Per Day: QUIT 30 YRS AGO. Smoked 1ppd x 20 years. ; Do You Dip or Chew Tobacco: No ; Second Hand Exposure: No ; Tobacco Cessation Education Requested by Patient: No Hx Alcohol Use: Yes Alcohol type: hard liquor Hx Substance Use: No Physical Exam Physical Exam: Gen.: No acute distress. Alert and oriented. HEENT: Anicteric sclera. Neck: No JVD. No bruits. Normal carotid upstrokes bilaterally. Cardiac: PMI was nondisplaced. No ventricular heave. Regular. Normal S1-S2. No murmurs, rubs, or gallops. Pulmonary: Clear to auscultation bilaterally without wheezes, rales, or rhonchi. Abdomen: Soft, nontender, nondistended, with normoactive bowel sounds. No bruits noted. Extremities: 2+ radial pulses bilaterally. 2+ posterior tibialis pulses bilaterally. No edema or cyanosis. Psychiatric: Affect appears appropriate. Chest: Nontender. Results & Data Vital Signs (Past 12 Hours) Vital Signs Temp Pulse Pulse Resp BP Pulse Ox 04/18/19 07:38 36.7 C 52 L 18 143/73 H 95 04/18/19 03:40 36.9 C 65 16 144/85 H 96 04/17/19 23:36 36.9 C 69 16 127/78 95 04/17/19 23:28 69 14 96 Laboratory Results Laboratory Results - last 24 hr 04/17/19 04/17/19 04/17/19 12:31 12:31 12:31 WBC 5.21 RBC 4.02 L Hgb 12.4 L Hct 36.1 L MCV 89.8 MCH 30.8 MCHC 34.3 RDW Std Deviation 41.6 RDW Coeff of Ricky 12.7 Plt Count 110 L MPV 10.9 H Immature Gran % (Auto) 0.4 Neut % (Auto) 69.7 Lymph % (Auto) 15.9 [place] % (Auto) 10.0 Eos % (Auto) 3.6 Baso % (Auto) 0.4 Immature Gran # (Auto) 0.02 Neut # (Auto) 3.63 Lymph # (Auto) 0.83 L [place] # (Auto) 0.52 Eos # (Auto) 0.19 Baso # (Auto) 0.02 PT 10.9 INR 1.1 APTT 27.1 PTT Ratio 1.0 Sodium 142 Potassium 4.3 Chloride 108 H Carbon Dioxide 28 Anion Gap 6.0 BUN 23 H Creatinine 1.12 Est Cr Clr Drug Dosing 70.2 Est GFR ( Amer) 73.0 Est GFR (Non-Af Amer) 63.0 BUN/Creatinine Ratio 20.7 H Glucose 108 H Calcium 8.7 Total Bilirubin 0.6 AST 20 ALT 21 Alkaline Phosphatase 67 Troponin I 0.114 H* Total Protein 7.2 Albumin 3.4 Globulin 3.8 Albumin/Globulin Ratio 0.9 Lipase 79 Specimen Hemolysis 04/17/19 04/17/19 04/18/19 18:01 23:17 00:29 WBC RBC Hgb Hct MCV MCH MCHC RDW Std Deviation RDW Coeff of Ricky Plt Count MPV Immature Gran % (Auto) Neut % (Auto) Lymph % (Auto) [place] % (Auto) Eos % (Auto) Baso % (Auto) Immature Gran # (Auto) Neut # (Auto) Lymph # (Auto) [place] # (Auto) Eos # (Auto) Baso # (Auto) PT INR APTT 93.1 H* PTT Ratio 3.4 Sodium Potassium Chloride Carbon Dioxide Anion Gap BUN Creatinine Est Cr Clr Drug Dosing Est GFR ( Amer) Est GFR (Non-Af Amer) BUN/Creatinine Ratio Glucose Calcium Total Bilirubin AST ALT Alkaline Phosphatase Troponin I 0.913 H* 0.756 H* Total Protein Albumin Globulin Albumin/Globulin Ratio Lipase Specimen Hemolysis 04/18/19 04/18/19 04/18/19 08:06 08:06 08:06 WBC RBC Hgb Hct MCV MCH MCHC RDW Std Deviation RDW Coeff of Ricky Plt Count MPV Immature Gran % (Auto) Neut % (Auto) Lymph % (Auto) [place] % (Auto) Eos % (Auto) Baso % (Auto) Immature Gran # (Auto) Neut # (Auto) Lymph # (Auto) [place] # (Auto) Eos # (Auto) Baso # (Auto) PT INR APTT 56.3 H* PTT Ratio 2.1 Sodium 137 Potassium 3.5 D Chloride 100 Carbon Dioxide 30 Anion Gap 7.0 BUN 20 H Creatinine 1.11 Est Cr Clr Drug Dosing 69.2 Est GFR ( Amer) 73.8 Est GFR (Non-Af Amer) 63.7 BUN/Creatinine Ratio 17.6 Glucose 109 H Calcium 9.1 Total Bilirubin AST ALT Alkaline Phosphatase Troponin I 0.409 H* Total Protein Albumin Globulin Albumin/Globulin Ratio Lipase Specimen Hemolysis Diagnostic Findings ECGs personally reviewed: ECG 04/17/2019 at 12:19 p.m.: Atrial sensed, ventricular paced rhythm with occasional PVCs. ECG 04/18/2019 at 6:51 a.m.: Atrial sensed, ventricular paced rhythm at 66 bpm. Cardiac catheterization and nuclear stress report reviewed. Medications Administered Current Inpatient Medications Acetaminophen (Tylenol) 650 mg PO Q4H PRN PRN Reason: Pain or Fever Stop: 05/17/19 17:07 Al Hydrox/Mg Hydrox/Simethicone (Maalox) 15 ml PO Q4H PRN PRN Reason: Dyspepsia Stop: 05/17/19 17:07 Aspirin (Ecotrin) 325 mg PO [facility] Stop: 05/18/19 08:59 Last Admin: 04/18/19 09:20 Dose: 325 mg Documented by: Citalopram Hydrobromide (Celexa) 10 mg PO [facility] Stop: 05/18/19 08:59 Last Admin: 04/18/19 09:20 Dose: 10 mg Documented by: Ezetimibe/Simvastatin (Vytorin 10/40 Mg) 1 tab PO [facility] Stop: 05/17/19 20:59 Last Admin: 04/17/19 19:37 Dose: 1 tab Documented by: Hydrochlorothiazide (Hctz) 25 mg PO [facility] Stop: 05/18/19 08:59 Last Admin: 04/18/19 09:19 Dose: 25 mg Documented by: Heparin Sodium/Dextrose (Heparin Sodium/Dextrose) 25,000 units in 500 mls @ 28 mls/hr IV .[id number] [facility]; Protocol Stop: 05/17/19 18:29 Last Titration: 04/18/19 07:08 Dose: 1,400 units/hr, 28 mls/hr Documented by: Isosorbide Mononitrate (Imdur Extended Rel) 60 mg PO DAILY [facility] Stop: 05/18/19 08:59 Last Admin: 04/18/19 09:19 Dose: 60 mg Documented by: Losartan Potassium (Cozaar) 25 mg PO QAM [facility] Stop: 05/18/19 08:59 Last Admin: 04/18/19 09:19 Dose: 25 mg Documented by: Magnesium Hydroxide (Milk Of Magnesia) 30 ml PO Q12H PRN PRN Reason: Constipation Stop: 05/17/19 17:07 Menthol (Nice) 1 sunitha BUCCAL PRN PRN PRN Reason: Cough Stop: 05/18/19 00:35 Metoprolol Tartrate (Lopressor) 50 mg PO BID [facility] Stop: 05/17/19 20:59 Last Admin: 04/18/19 09:20 Dose: 50 mg Documented by: Miscellaneous (Order Awaiting Action) 1 ea N/A QS [facility] Stop: 05/18/19 17:59 Morphine Sulfate (Morphine Sulfate) 2 mg IV Q4H PRN PRN Reason: Pain Stop: 05/01/19 17:07 Multivitamins (Multivitamin Tab) 1 tab PO [facility] Stop: 05/18/19 08:59 Last Admin: 04/18/19 09:19 Dose: 1 tab Documented by: Nitroglycerin (Nitrostat) 0.4 mg SL UD PRN PRN Reason: Chest Pain Stop: 05/17/19 17:07 Ondansetron HCl (Zofran) 4 mg IV Q6H PRN PRN Reason: Nausea Stop: 05/17/19 17:07 Pantoprazole [facility] ([facility]ix) [facility] [facility]: 05/18/19 08:59 Last Admin: 04/18/19 09:20 Dose: 40 mg Documented by: Polyethylene Glycol (Miralax Powder Packet) 17 gm PO DAILY PRN PRN Reason: Constipation Stop: 05/17/19 17:07 Ranolazine (Ranexa) 500 mg PO BID [facility] Stop: 05/17/19 20:59 Last Admin: 04/18/19 09:20 Dose: 500 mg Documented by: Vitamin D (Vitamin D3) 2,000 units PO QAM [facility] Stop: 05/18/19 08:59 Last Admin: 04/18/19 09:19 Dose: 2,000 units Documented by: PG Care Time/CCT Total # of Minutes Spent Total Time Spent with Patient: Total time spent is greater than 50% in coordination of care (as documented) at patient's floor/unit and/or counseling patient:
[2019-04-18] MEDS: HEPARIN SODIUM/DEXTROSE 25,000 UNITS/500 ML BAG IV SCH (11:23)
--- NOTE | 2019-04-18 14:47 | Hospitalist Progress Note ---
Date of Service April 18, 2019 Assessment & Plan (1) Non-ST elevation (NSTEMI) myocardial infarction: patient with symptoms and rise in troponin with well established severe CAD trop peaked at 0.9 and trending back down to 0.4 no further chest pain since admission will use antiplatelets and heparin drip (48-72 hours) echo shows EF 45%, same findings as prior echo statin therapy cardiology plans to discuss the case with [facility] interventional cardiology tomorrow most likely vessel involved is small OM branch, unsure if it is large enough for stent do not want to sent to [facility] if there would not be role for stent Dr. Garcia following, he will likely talk with Dr. Blackwell as well as [facility] tomorrow (2) Chest pain: due to NSTEMI had about one hour of chest pressure, no associated nausea or diaphoresis the pain resolved with Nitro SL no chest pain since initial episode (3) CAD (coronary artery disease): - H/O CAD S/P PCI with RCA Dissection and ultimate CABG; AV Block S/P Pacer, Paroxysmal A Flutter/SVT, HTN, HLD, Mild MR, Mild Pulm HTN - Continue home ASA 324 mg daily, Ezetimibe/Simvastatin daily, HCTZ 25 mg daily, Isosorbide mononitrate 60 mg daily Losartan 25 mg daily, Metoprolol 50 mg BID, and Ranexa 500 mg BID - Patient reports his Isosorbide was increased to 60 mg and the addition of Ranexa was implemented to try and assist with chronic angina however currently not completely effective per report (4) Essential hypertension: - STABLE - Treatment as above (5) Thrombocytopenia: - Appears to have a chronic thrombocytopenia - monitor in setting of heparin administration repeat CBC tomorrow (6) EILEEN on CPAP: - Set up CPAP (7) COPD (chronic obstructive pulmonary disease): - Reports chronic productive cough - denies changes in consistency or amount of sputum; no acute exacerbation at this time (8) DVT prophylaxis: - Heparin gtt Disposition: cards to speak with [facility] tomorrow, if not transferred for intervention then likely home once medically cleared Subjective patient feeling good, no chest pain eating well, no dyspnea, no cough, no GI symptoms reviewed labs, Trop peaked at 0.9, trending back down, 0.4 most recently BMP and CBC stable reviewed results of ECHO, EF is 45%, wall motion abnormalities, no real changes compared to prior echo discussed with Dr Garcia, no major plans today would like to discuss the case with [facility] tomorrow as the most likely culprit is a small OM branch not sure that it is large enough for a stent Review of Systems Review of Systems: All systems reviewed & are unremarkable except as noted in HPI & below Constitutional: no fever, no fatigue and no weakness Respiratory: no cough, no dyspnea and no dyspnea on exertion Cardiovascular: no chest pain, no palpitations and no edema Gastrointestinal: no abdominal pain, no nausea, no vomiting, no constipation and no diarrhea/loose stools Physical Exam Constitutional: WD/WN, vitals as above Eyes: PERRL, conjunctivae normal, anicteric sclerae ENMT: external ear and nose normal, oropharynx normal Neck: trachea midline, no thyromegaly Respiratory: normal respiratory effort, lungs clear to auscultation Cardiovascular: RRR, no murmur, no edema Gastrointestinal (Abdomen): normal bowel sounds, soft, nontender, no hepatosplenomegaly Musculoskeletal: no cyanosis or clubbing, extremities motor strength 5/5 Skin: no rashes, warm and dry Neurologic: patellar DTR's 2+ bilat, sensation intact and PERRL, EOMI, accommodation nl, no face palsy, no dysarthria Psychiatric: A+Ox3, euthymic affect Lymphatic: no cervical or axillary lymphadenopathy Results & Data Vital Signs (Past 12 Hours) Vital Signs Temp Pulse Resp BP Pulse Ox 04/18/19 12:24 69 04/18/19 10:46 36.7 C 48 L 18 110/53 L 95 04/18/19 07:38 36.7 C 52 L 18 143/73 H 95 04/18/19 03:40 36.9 C 65 16 144/85 H 96 Laboratory Results Laboratory Results - last 24 hr 04/17/19 04/17/19 04/18/19 18:01 23:17 00:29 APTT 93.1 H* PTT Ratio 3.4 Sodium Potassium Chloride Carbon Dioxide Anion Gap BUN Creatinine Est Cr Clr Drug Dosing Est GFR ( Amer) Est GFR (Non-Af Amer) BUN/Creatinine Ratio Glucose Calcium Troponin I 0.913 H* 0.756 H* 04/18/19 04/18/19 04/18/19 08:06 08:06 08:06 APTT 56.3 H* PTT Ratio 2.1 Sodium 137 Potassium 3.5 D Chloride 100 Carbon Dioxide 30 Anion Gap 7.0 BUN 20 H Creatinine 1.11 Est Cr Clr Drug Dosing 69.2 Est GFR ( Amer) 73.8 Est GFR (Non-Af Amer) 63.7 BUN/Creatinine Ratio 17.6 Glucose 109 H Calcium 9.1 Troponin I 0.409 H* Medications Administered Current Inpatient Medications Acetaminophen (Tylenol) 650 mg PO Q4H PRN PRN Reason: Pain or Fever Stop: 05/17/19 17:07 Al Hydrox/Mg Hydrox/Simethicone (Maalox) 15 ml PO Q4H PRN PRN Reason: Dyspepsia Stop: 05/17/19 17:07 Aspirin (Ecotrin) 325 mg PO [facility] Stop: 05/18/19 08:59 Last Admin: 04/18/19 09:20 Dose: 325 mg Documented by: Citalopram Hydrobromide (Celexa) 10 mg PO [facility] Stop: 05/18/19 08:59 Last Admin: 04/18/19 09:20 Dose: 10 mg Documented by: Ezetimibe/Simvastatin (Vytorin 10/40 Mg) 1 tab PO [facility] Stop: 05/17/19 20:59 Last Admin: 04/17/19 19:37 Dose: 1 tab Documented by: Hydrochlorothiazide (Hctz) 25 mg PO [facility] Stop: 05/18/19 08:59 Last Admin: 04/18/19 09:19 Dose: 25 mg Documented by: Heparin Sodium/Dextrose (Heparin Sodium/Dextrose) 25,000 units in 500 mls @ 28 mls/hr IV .[id number] [facility]; Protocol Stop: 05/17/19 18:29 Last Admin: 04/18/19 11:23 Dose: 1,400 units/hr, 28 mls/hr Documented by: Isosorbide Mononitrate (Imdur Extended Rel) 60 mg PO DAILY [facility] Stop: 05/18/19 08:59 Last Admin: 04/18/19 09:19 Dose: 60 mg Documented by: Losartan Potassium (Cozaar) 25 mg PO [facility] Stop: 05/18/19 08:59 Last Admin: 04/18/19 09:19 Dose: 25 mg Documented by: Magnesium Hydroxide (Milk Of Magnesia) 30 ml PO Q12H PRN PRN Reason: Constipation Stop: 05/17/19 17:07 Menthol (Nice) 1 sunitha BUCCAL PRN PRN PRN Reason: Cough Stop: 05/18/19 00:35 Metoprolol Tartrate (Lopressor) 100 mg PO BID [facility] Stop: 05/18/19 11:14 Last Admin: 04/18/19 12:22 Dose: 100 mg Documented by: Miscellaneous (Order Awaiting Action) 1 ea N/A QS [facility] Stop: 05/18/19 17:59 Morphine Sulfate (Morphine Sulfate) 2 mg IV Q4H PRN PRN Reason: Pain Stop: 05/01/19 17:07 [facility]ivitamins ([facility]ivitamin Tab) [facility] Stop: 05/18/19 08:59 Last Admin: 04/18/19 09:19 Dose: 1 tab Documented by: Nitroglycerin (Nitrostat) 0.4 mg SL UD PRN PRN Reason: Chest Pain Stop: 05/17/19 17:07 Ondansetron HCl (Zofran) 4 mg IV Q6H PRN PRN Reason: Nausea Stop: 05/17/19 17:07 Pantoprazole Sodium (Protonix) [facility] Stop: 05/18/19 08:59 Last Admin: 04/18/19 09:20 Dose: 40 mg Documented by: Polyethylene Glycol (Miralax Powder Packet) 17 gm PO DAILY PRN PRN Reason: Constipation Stop: 05/17/19 17:07 Ranolazine (Ranexa) 500 mg PO BID [facility] Stop: 05/17/19 20:59 Last Admin: 04/18/19 09:20 Dose: 500 mg Documented by: Vitamin D (Vitamin D3) 2,000 units PO QAM [facility] Stop: 05/18/19 08:59 Last Admin: 04/18/19 09:19 Dose: 2,000 units Documented by: PG Care Time/CCT Total # of Minutes Spent Total Time Spent with Patient: Total time spent is greater than 50% in coordination of care (as documented) at patient's floor/unit and/or counseling patient: (1) Chest pain Chest pain type: unspecified Qualified Code(s): R07.9 - Chest pain, unspecified
[2019-04-18] MEDS: TROSPIUM 20 MG SCH ×2 (18:39→23:49)
[2019-04-18] MEDS: EZETIMIBE/SIMVASTATIN 10/40MG 1 TAB TAB PO SCH (19:41)
[2019-04-19] MEDS: HEPARIN SODIUM/DEXTROSE 25,000 UNITS/500 ML BAG IV SCH ×2 (05:26→22:57)
[2019-04-19 06:18] LABS: BUN Creatinine Ratio 16.6 (10-20); Calcium 8.9 mg/dl (8.5-10.1); Creatinine Clr Calc Pharmacy 78.4 ml/min; Est GFR (African American) 85.8; Est GFR (Non-African American) 74.1; Potassium 3.5 mmol/L (3.5-5.1)
[2019-04-19 08:25] LABS: Partial Thromboplastin Time 54.3 Seconds (21.0-31.0)
[2019-04-19] MEDS: CITALOPRAM 20 MG TAB PO SCH (08:50)
[2019-04-19] MEDS: PANTOprazole 40 MG TAB PO SCH ×2 (08:50→20:25)
[2019-04-19] MEDS: LOSARTAN POTASSIUM 25 MG TAB PO SCH (08:50)
[2019-04-19] MEDS: ASPIRIN 325 MG ECTAB PO SCH (08:50)
[2019-04-19] MEDS: ISOSORBIDE MONO EXTENDED REL 60 MG TABCR PO SCH (08:51)
[2019-04-19] MEDS: RANOLAZINE 500 MG ER TAB PO SCH ×2 (08:51→20:25)
[2019-04-19] MEDS: hydroCHLOROthiazide 25 MG TAB PO SCH (08:51)
[2019-04-19] MEDS: METOPROLOL TARTRATE 50 MG TAB PO SCH ×2 (08:51→20:25)
[2019-04-19] MEDS: MULTIVITAMIN TAB PO SCH (08:51)
[2019-04-19] MEDS: CHOLECALCIFEROL 1,000 UNITS TAB PO SCH (08:51)
[2019-04-19] MEDS: TROSPIUM 20 MG SCH (08:56)
--- NOTE | 2019-04-19 17:14 | Cardiology Progress Note ---
Date of Service April 19, 2019 Assessment & Plan (1) Non-ST elevation (NSTEMI) myocardial infarction: - post three-vessel CABG 2012, prior PCI to RCA. Grafts patent on cath 03/2018. 2. 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 Incidental paroxysmal atrial flutter noted on pacemaker interrogation 12/2017; Paroxysmal SVT on holter 03/2018 4. SMA stenosis--asymptomatic, incidental finding 5. Hypertension 6. prior frequent PVCs Troponin has peaked. LV function unchanged. Hemodynamically and electrically stable. Well perfused without congestion on exam. Discussed options with patient and . Based on anatomy on prior cath 1 year ago recommend additional risk stratification with nuclear spect. Will plan to obtain tomorrow. Otherwise OK to discontinue heparin after 48 hrs. Metoprolol increased on admission to 100mg BID. Will plan to increase imdur as BP allows. Potentially increase ranexa. If were to need a cath would want done at [facility] in [place]. Have placed call out to [facility] interventional cardiology. Further recs pending stress. Subjective Feeling well today. Brief episode of chest pain this morning (different than presenting pain). No recurrent symptoms over course of day. Tele - no arrhythmia. Review of Systems Review of Systems: All systems reviewed & are unremarkable except as noted in HPI & below Physical Exam Constitutional: well developed Eyes: + anicteric sclerae Respiratory: normal respiratory effort, lungs clear to auscultation Cardiovascular: Rate/Rhythm: regular rate Heart Sounds: no murmur Extremities: normal capillary refill; no edema Gastrointestinal (Abdomen): Percussion/Palpation: abdomen soft; abdomen nontender Skin: no rashes, warm and dry Psychiatric: A+Ox3, euthymic affect Results & Data Vital Signs (Past 12 Hours) Vital Signs Temp Pulse Pulse Resp BP BP Pulse Ox 04/19/19 15:47 97.5 F L 62 18 94/60 L 96 04/19/19 12:00 98.4 F 58 L 20 101/51 L 94 04/19/19 08:05 97.7 F 65 20 127/85 96 PG Care Time/CCT Total # of Minutes Spent Total Time Spent with Patient: Total time spent is greater than 50% in coordination of care (as documented) at patient's floor/unit and/or counseling patient:
--- NOTE | 2019-04-19 19:26 | Hospitalist Progress Note ---
Date of Service April 19, 2019 Assessment & Plan (1) Non-ST elevation (NSTEMI) myocardial infarction: trop peaked at 0.9. heparin drip is nearly at 48 hours tonight; d/c then. cont asa, statin, zetiz, ARB, BB. echo shows EF 45% and various wall motion abnormalities - same as previous echo. 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 in meantime - lexiscan nuclear stress test in am per Dr Blackwell' recommendation. 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 increase PPI BID speech consult set up to see ENT as outpatient soon (8) Dysphagia: speech consult pharyngeal dysphagia by report -- GERD? dysmotility? (9) DVT prophylaxis: heparin drip family updated Subjective denies chest pain. denies dyspnea, orthopnea, PND. tele stable (paced). heparin drip continues. only complaints are that of chronic cough, chronic hoarse voice, and recent reflux symptoms. Review of Systems Constitutional: no fever Respiratory: + sputum production Cardiovascular: no chest pain, no dyspnea on exertion and no palpitations Gastrointestinal: no abdominal pain Physical Exam Constitutional: WD/WN, vitals as above no acute distress ENMT: external ear and nose normal, oropharynx normal Respiratory: normal respiratory effort, lungs clear to auscultation Cardiovascular: Rate/Rhythm: regular rate and regular rhythm Heart Sounds: normal S1 and normal S2; no murmur Vessels: posterior tibial pulses present and dorsalis pedis pulses present; no JVD Extremities: no edema Gastrointestinal (Abdomen): normal bowel sounds, soft, nontender, no hepatosplenomegaly Psychiatric: A+Ox3, euthymic affect Results & Data Vital Signs (Past 12 Hours) Vital Signs Temp Pulse Pulse Resp BP BP Pulse Ox 04/19/19 19:24 36.6 C 04/19/19 19:19 34.7 C L 04/19/19 19:16 34.7 C L 51 L 20 100/61 95 04/19/19 15:47 36.4 C L 62 18 94/60 L 96 04/19/19 12:00 36.9 C 58 L 20 101/51 L 94 04/19/19 08:05 36.5 C 65 20 127/85 96 Laboratory Results Laboratory Results - last 24 hr 04/19/19 04/19/19 05:32 07:35 APTT 54.3 H* PTT Ratio 2.0 Sodium 139 Potassium 3.5 Chloride 102 Carbon Dioxide 27 Anion Gap 10.0 BUN 16 Creatinine 0.98 Est Cr Clr Drug Dosing 78.4 Est GFR ( Amer) 85.8 Est GFR (Non-Af Amer) 74.1 BUN/Creatinine Ratio 16.6 Glucose 102 H Calcium 8.9 PG Care Time/CCT Total # of Minutes Spent Total Time Spent with Patient: Total time spent is greater than 50% in coordination of care (as documented) at patient's floor/unit and/or counseling patient: (1) CAD (coronary artery disease) Coronary Disease-Associated Artery/Lesion type: [place] artery [place] vs. transplanted heart: [place] heart Associated angina: with unspecified angina Qualified Code(s): I25.119 - Atherosclerotic heart disease of [place] coronary artery with unspecified angina pectoris (2) COPD (chronic obstructive pulmonary disease) COPD type: unspecified COPD Qualified Code(s): J44.9 - Chronic obstructive pu lmonary disease, unspecified (3) GERD (gastroesophageal reflux disease) Esophagitis presence: esophagitis presence not specified Qualified Code(s): K21.9 - Gastro-esophageal reflux disease without esophagitis (4) Dysphagia Dysphagia type: unspecified Qualified Code(s): R13.10 - Dysphagia, unspecified
[2019-04-19] MEDS: EZETIMIBE/SIMVASTATIN 10/40MG 1 TAB TAB PO SCH (20:25)
[2019-04-19] MEDS: TROSPIUM PO SCH (20:26)
[2019-04-20] MEDS: RANOLAZINE 500 MG ER TAB PO SCH (07:57)
[2019-04-20] MEDS: PANTOprazole 40 MG TAB PO SCH (07:57)
[2019-04-20] MEDS: LOSARTAN POTASSIUM 25 MG TAB PO SCH (07:57)
[2019-04-20] MEDS: ISOSORBIDE MONO EXTENDED REL 60 MG TABCR PO SCH (07:57)
[2019-04-20] MEDS: CHOLECALCIFEROL 1,000 UNITS TAB PO SCH (07:58)
[2019-04-20] MEDS: METOPROLOL TARTRATE 50 MG TAB PO SCH (07:58)
[2019-04-20] MEDS: CITALOPRAM 20 MG TAB PO SCH (07:58)
[2019-04-20] MEDS: MULTIVITAMIN TAB PO SCH (07:59)
[2019-04-20] MEDS: TROSPIUM PO SCH (07:59)
[2019-04-20] MEDS: hydroCHLOROthiazide 25 MG TAB PO SCH (08:00)
[2019-04-20] MEDS: ASPIRIN 325 MG ECTAB PO SCH (08:01)
[2019-04-20] MEDS ORDERED: REGADENOSON 0.4 MG/5 ML SYR IV ONE (08:10)
--- NOTE | 2019-04-20 17:16 | Myocardial Perfusion Study ---
Date of Service April 20, 2019 Myocardial Perfusion Study [facility] Myocardial Perfusion Study Report ONE DAY NUCLEAR MEDICINE LEXISCAN TECHNETIUM 99M MYOCARDIAL PERFUSION SCAN Indication: History of coronary artery disease, prior NC, bypass surgery. Admitted with NSTEMI.. Baseline ECG: Normal sinus rhythm with occasional PVCs, ventricular rate of 71. Left bundle branch block. Stress ECG: Left bundle branch block without significant Lexiscan induced ST changes. Occasional PVCs. HR beny from 63 to 75 representing 50 to % MPHR. SBP 83/49 Technique: For the stress portion of the study 32.4 mCi of Technetium 99m Cardiolite IV was injected at 11: 05 on 04/20/2019. 30 minutes following the injection, imaging of the heart was performed in multiple projections. For the rest portion of the study, 11.15 mCi of Technetium 99m Cardiolite was injected IV at 9: 30. One hour following the injection, imaging of the hear was performed in the same projections. Findings: Rotating raw images were reviewed in detail. Potential sources of attenuation include subtle diaphragmatic attenuation and gut uptake impacting the inferior imaging border of the heart. No significant extracardiac pathologic uptake. Short axis, vertical long axis and horizontal long axis images were reviewed in detail. No visual TID. Large, severe fixed base to mid inferior, inferoseptal perfusion defect with mild [place]-infarct ischemia. Mild base to mid anterior lateral perfusion defect, reversible. Sum difference score 3. Normal LV size. EDV 165 ml. Calculated EF 34 %. Inferior wall severe hypokinesis to akinesis. SUMMARY: 1. Small, mild, anterolateral reversible perfusion defect consistent with a small amount of diagonal/OM distribution ischemia. 2. Inferior infarct with mild [place]-infarct ischemia. 3. Borderline dilated LV size. LVEF 34 % inferior hypokinesis to akinesis. 4. Non-diagnostic stress ECG due to inability to reach target HR with Lexiscan and left bundle branch block. 5. Compared with prior stress test on 04/02/2018: No significant changes.
--- NOTE | 2019-04-20 17:31 | Cardiology Progress Note ---
Date of Service April 20, 2019 Assessment & Plan (1) Non-ST elevation (NSTEMI) myocardial infarction: - post three-vessel CABG 2012, prior PCI to RCA. Grafts patent on cath 03/2018. 2. 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 Incidental paroxysmal atrial flutter noted on pacemaker interrogation 12/2017; Paroxysmal SVT on holter 03/2018 4. SMA stenosis--asymptomatic, incidental finding 5. Hypertension 6. prior frequent PVCs Reviewed results of stress test with patient and family. No high risk findings. Again noted to have a small amount of anterolateral ischemia consistent diagonal/OM disease noted on prior cath 1 year ago. Recommend trial of medical management and maximizing antianginal therapy. If recurrent symptoms in future then will refer back to [facility] interventional cardiology. On discharge would increase ranexa to 1000mg BID, continue increased metoprolol and prior imdur. Follow-up with me in 2-3 weeks. Subjective Underwent nuclear stress this afternoon. Test unchanged from prior. Mild hypotension with lexiscan. Later in afternoon feeling well. No recurrent chest pain. Requesting to head home. Review of Systems Review of Systems: All systems reviewed & are unremarkable except as noted in HPI & below Physical Exam Constitutional: WD/WN, vitals as above Eyes: + anicteric sclerae Respiratory: normal respiratory effort, lungs clear to auscultation Cardiovascular: Rate/Rhythm: regular rate Heart Sounds: no murmur Vessels: no JVD Extremities: normal capillary refill; no edema Gastrointestinal (Abdomen): normal bowel sounds, soft, nontender, no hepatosplenomegaly Skin: no rashes, warm and dry Neurologic: no focal motor deficits Psychiatric: Orientation: alert and oriented x 3 Results & Data Vital Signs (Past 12 Hours) Vital Signs Temp Pulse Pulse Resp BP Pulse Ox 04/20/19 15:23 97.3 F L 53 L 20 89/49 L 94 04/20/19 15:00 68 04/20/19 07:44 98.2 F 62 16 132/76 98 PG Care Time/CCT Total # of Minutes Spent Total Time Spent with Patient: Total time spent is greater than 50% in coordination of care (as documented) at patient's floor/unit and/or counseling patient:
[2019-04-20] MEDS ORDERED: TRIAMCINOLONE ACET 0.1% CR 15 GM TUBE EXT SCH (18:55)
--- NOTE | 2019-04-26 02:33 | Discharge Summary ---
Date of Service date of admission - 04/17/19 date of discharge - 04/20/19 Admission HPI Per Admitting Provider Mr. Sesay is a 79 y/o male with PMHx of CAD S/P PCI (with RCA dissection) and S/P CABG, AV Block S/P Pacer, Paroxysmal A Flutter/SVT, HTN, hyperlipidemia, Mild Pulm HTN, H/O Bladder Fistula and Recurrent UTIs, and SMA Stenosis who presents to the ED by EMS for chest pain that occurred earlier today. Patient has a long standing history of angina and follows with Dr. Blackwell as well as Dr. Parker for catheterizations. He reports his normal angina symptoms come on after exertion but normally can do those tasks for several minutes before symptoms occur and normally only last 3-4 minutes and resolve with rest. However, over the past couple days he notes that sometimes the chest pain comes on at rest but again would still resolve in 3-4 minutes. He also notes that sometimes his chest discomfort can be relieved with Nexium however he notes his GERD has been less responsive to this medication and has a GI F/U in near future. However, today he was helping his lift a mattress up to place a bed skirt on when he developed almost instantaneous L sided chest pain. Pain did not radiate and felt like his normal angina. However, the pain continued for approx. one hour. In t his timeframe he did take a loading dose of aspirin with no relief. When EMS arrived he was given NTG which did completely resolve his chest pain. He continues to be chest pain free in the ED. He denies nausea/vomiting and states he has been in his normal state of health. He does endorse a chronic productive cough but has underlying COPD and notes no changes in mucous production. reports a heart catheterization with Dr. Parker approx. one year ago which she was told was a clean cath. In the ED, patient's troponin is currently at 0.114 and appears to not have a baseline elevated troponin. Principal Diagnosis mild NSTEMI Discharge Exam Constitutional well developed and well nourished; no acute distress and no altered mental status ENMT external ear and nose normal, oropharynx normal Respiratory normal respiratory effort, lungs clear to auscultation Cardiovascular Rate/Rhythm: regular rate and regular rhythm Heart Sounds: normal S1 and normal S2; no murmur Vessels: posterior tibial pulses present and dorsalis pedis pulses present; no JVD Extremities: no edema Gastrointestinal (Abdomen) normal bowel sounds, soft, nontender, no hepatosplenomegaly Skin erythematous rash on middle of back (no discete macules or papules -- it is a large patch); no vesicles. Psychiatric A+Ox3, euthymic affect Discharge Data Allergies Allergy/AdvReac Type Severity Reaction Status Date / Time oxycodone [From OxyContin] Allergy Unknown Hallucinati Verified 04/25/19 14:23 ng Sulfa (Sulfonamide Allergy Unknown rash Verified 04/25/19 14:23 Antibiotics) lisinopril AdvReac Mild cough Verified 04/25/19 14:23 ciprofloxacin [From Cipro] AdvReac Unknown see notes Verified 04/25/19 14:23 metoclopramide AdvReac Unknown Depression Verified 04/25/19 14:23 Consultations cardiology - Daniel Blackwell MD Procedures Performed 1. lexiscan nuclear stress test: SUMMARY: 1. Small, mild, anterolateral reversible perfusion defect consistent with a small amount of diagonal/OM distribution ischemia. 2. Inferior infarct with mild austin-infarct ischemia. 3. Borderline dilated LV size. LVEF 34 % inferior hypokinesis to akinesis. 4. Non-diagnostic stress ECG due to inability to reach target HR with Lexiscan and left bundle branch block. 5. Compared with prior stress test on 04/02/2018: No significant changes. 2. echocardiogram: * EF 45% * akinesis basal inferior wall * severe hypokinesis to akinesis of inferolateral wall * moderate LVH * mildly dilated right ventricle with mild reduction in RV systolic function * right ventricular systolic pressure 30-40mmHg (mild pulm HTN) * LV wall motion unchanged from echo dated 09/22/2017 Hospital Course (1) Non-ST elevation (NSTEMI) myocardial infarction: The patient was admitted and treated for a suspected mild NSTEMI. Peak Troponin was 0.9. He received a heparin drip for 48 hours. He was continued on aspirin, statin, zetia, ARB, beta alyssa, imdur, and ranexa. Echo was obtained showing EF 45% and various wall motion abnormalities but the findings were unchanged from echo completed in 08/2017. Cardiology was consulted and lexiscan nuclear stress test was performed. This showed similar findings to his previous lexiscan that was completed in 2018. Due to the unchanging nature of his lexiscan it was decided to continue medical management for his CAD rather than pursuing an invasive approach. If indeed there was ever a decision to pursue cardiac catheterization he would need such at [facility] (patient is followed by Dr Nathen Parker). (2) CAD (coronary artery disease): see "NSTEMI" above H/O CAD S/P PCI with RCA Dissection and ultimate CABG at [facility] in [place]. (3-vessel CABG -- lai to LAD, SVG to PL, and SVG to ramus in December of [address] [facility] following complication of attempted RCA PCI at [facility]). Continue home ASA 81mg daily, Ezetimibe/Simvastatin daily, Isosorbide mononitrate 60 mg daily, Losartan 25 mg daily, Metoprolol, and Ranexa. Cardiology recommended an INCREASE in his beta alyssa -- this was titrated to 100mg BID initially but later lowered to 75mg BID due to low-normal BP. Ranexa also increased from 500mg BID to 1000mg BID. 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 I increased his PPI to BID dosing. speech consult was completed in light of GERD and dysphagia -- outpatient follow-up with ENT advised along with barium swallow testing. (8) Dysphagia: speech consult completed; they recommended treatment of GERD, ENT follow- up post-discharge, and consideration of barium swallow. (9) Rash: on patient's back. developed this on the day of discharge. contact dermatitis? prescribed triamcinolone cream for such and counseled him that if the rash worsened or persisted he would need to seek medical attention again. the rash was not painful nor were there vesicles making shingles highly unlikely. Total Time Total Time Spent Total Time Spent (In Minutes): 40 Total Time Includes: Examination of the Patient, Discharge Planning, Medication Reconciliation and Communication With Other Providers Discharge Plan Discharge Items Patient Disposition: Home - Self-Care Reason For Visit: CHEST PAIN; ELEVATED TROPONIN Discharge Diagnosis: mild heart attack Discharge Goals: Diagnostic testing and Therapeutic intervention Activity: As commented below Activity Comment: no strenuous activities until seen by Dr Blackwell; light activities only Lifting: Wait until after follow-up appointment Sexual Activity: Wait until after follow-up appointment Exercise/Sports: Wait until after follow-up appointment Driving/Machine Use: No limitations Non-emergency contact: Primary Care Provider and [employer] Call non-emergency contact if: you have any medication questions, your symptoms worsen and your pain is not controlled Follow-up/Referrals: Surya Blackwell MD [Physician] - (see Dr Blackwell as scheduled in 1 week) Trae Garza [Primary Care Provider] - (see Dr Garza in 1 week) Diet: Heart Healthy Addtl Provider Instructions: You were treated for mild heart attack with conservative measures including heparin drip for 2 days and your usual heart medications. Dr Blackwell saw you in consult and recommended a stress test. The stress test showed similar findings in comparison to your previous stress test. Thus, at this time, Dr Blackwell is recommending medical management (rather than pursuing a heart catheterization) for your coronary disease. Recommendations - 1. increase your metoprolol to 75mg twice daily starting tomorrow morning. New script sent to your pharmacy. 2. increase your ranexa to 1000mg twice daily starting tomorrow morning. New script sent. 3. increase your nexium to 40mg twice daily and please follow-up with Dr Kenney from ENT as scheduled for your chronic cough/chronic reflux/chronic hoarse voice. New script sent to your pharmacy for you. 4. please speak to Dr Garza about having a barium swallow test because of the swallowing issues. 5. for the rash on your back - triamcinolone cream three times daily in thin amounts for about 1 week. Home Care: * Take your medications exactly as directed. Don't skip doses. * Remember that recovery after a heart attack takes time. Plan to rest for at lease 4-8 weeks while you recover. Then return to normal activity when your doctor says it's okay. * Ask your doctor about joining a heart rehabilitation program. * Tell your doctor if you are feeling depressed. Feelings of sadness are common after a heart attack, but it is important that you speak to someone if you are feeling overwhelmed by these feelings. * If you are having chest pain, call 911 for an ambulance. Do NOT drive yourself to the hospital. * Ask your family members to learn CPR. * Learn to take your own blood pressure and pulse. Keep a record of your results. Ask your doctor when you should seek emergency medical attention. He or she will tell you which blood pressure reading is dangerous. Lifestyle Changes: * Maintain a healthy weight. Get help to lose any extra pounds. * Cut back on salt. * Limit canned, dried, packaged, and fast foods. * Don't add salt to your food. * Season foods with herbs instead of salt when you cook. * Break the smoking habit. Enroll in a stop-smoking program to improve your chances of success. * Limit fatty foods. * Ask your doctor about having your lipid levels checked regularly. * Build up your activity according to your doctor's recommendation. * Ask your doctor when it's okay to resume sexual activity. * Tell your doctor about any erectile dysfunction (ED) medication you are taking. Some ED medications are not safe if you take certain heart medications. * Try to manage stress. follow-up - see Dr Blackwell in 1 week; see Dr Garza in 1 week return to [facility] if - * you experience chest pain that is not resolving with your medications * you have worsening shortness of breath * your rash on your back is worsening * you have severe dizziness or lightheadedness * any other concerns Prescriptions: New ranolazine 1,000 mg tablet extended release 12 hr 1,000 mg PO BID Qty: 60 RF: 2 Continued isosorbide mononitrate 60 mg tablet extended release 24 hr 60 mg PO QAM Qty: 30 RF: 0 trospium 20 mg tablet 20 mg PO BID Qty: 60 RF: 0 multivitamin [Multiple Vitamins] Tablet 1 tab PO QAM RF: 0 citalopram 10 mg Tablet 10 mg PO QAM RF: 0 aspirin [Aspir-81] 81 mg Tablet,Delayed Release (Dr/Ec) 81 mg PO QAM RF: 0 losartan 25 mg Tablet 25 mg PO QAM RF: 0 hydrochlorothiazide 25 mg Tablet 25 mg PO QAM RF: 0 ezetimibe-simvastatin [Vytorin 10-40] 10-40 mg Tablet 1 tab PO HS RF: 0 cholecalciferol (vitamin D3) [Vitamin D3] 2,000 unit Capsule 2,000 unit PO QAM RF: 0 Changed triamcinolone acetonide 0.1 % cream 1 appln TOP TID Qty: 15 RF: 0 esomeprazole magnesium [Nexium] 40 mg Capsule,Delayed Release(Dr/Ec) 40 mg PO BID Qty: 60 RF: 1 metoprolol tartrate 50 mg Tablet 75 mg PO BID Qty: 90 RF: 2 Stand-Alone Forms: Call Back Authorization, [facility]/Other Patient Handouts: Ranolazine Oral tablet extended-release Discharge Orders: Discharge Order (Routine); Ordered 04/20/19 Ordered By: Alejandro Houston Admission Data Admit Date/Time: 04/17/19 16:05 Attending Provider: Alejandro Houston Admit Provider: Fermin Marcos Primary Care Provider: Trae Garza Other Providers: Gael Garcia ; Fermin Marcos Service: Telemetry Other Interventions: Discharge Summary Assessment (RN) Last Done: 04/20/19 18:44 Pending Studies at Discharge: No DC Date/Time DO NOT enter until pt leaves facility: 04/20/19 19:29
== END 2019-04-20 19:29 | disposition home or self-care (01) | DRG 282 ==
LOC: ED 12:12 → SUATTDRO 16:05 → 2S 16:05

== ENCOUNTER 2019-04-25 13:20 | Observation (INO) ==
[2019-04-25 14:25] LABS: Basophils # (auto) 0.02 K/uL (0-0.2); Basophils % (auto) 0.3 %; Eosinophils # (auto) 0.17 K/uL (0-0.5); Eosinophils % (auto) 2.8 %; Hematocrit (blood only) 35.4 % (42-52); Hemoglobin 12.1 g/dL (14.0-18.0); Immature Granulocytes # (auto) 0.02 K/uL (0.00-0.02); Immature Granulocytes % (auto) 0.3 %; Lymphocytes # (auto) 0.78 K/uL (1.2-3.4); Lymphocytes % (auto) 12.8 %; Mean Corpuscular Hemoglobin 30.6 pg (25-34); Mean Corpuscular Hgb Conc 34.2 g/dL (32-36); Mean Corpuscular Volume 89.4 fL (80-100); Mean Platelet Volume 11.1 fL (7.4-10.4); Monocytes # (auto) 0.89 K/uL (0.11-0.59); Monocytes % (auto) 14.6 %; Neutrophils % (auto) 69.2 %; Platelet Count 136 K/uL (130-400); RDW Coefficient of Variation 12.6 % (11.5-14.5); RDW Standard Deviation 40.8 fL (36.4-46.3); Red Blood Count 3.96 M/uL (4.7-6.1); White Blood Count 6.08 K/uL (4.8-10.8)
[2019-04-25 14:31] LABS: Alanine Aminotransferase 22 U/L (12-78); Albumin Level 3.6 gm/dl (3.4-5.0); Aspartate Aminotransferase 15 U/L (15-37); BUN Creatinine Ratio 23.6 (10-20); Bilirubin Direct 0.2 mg/dl (0-0.2); Blood Urea Nitrogen 28 mg/dl (7-18); Calcium 9.2 mg/dl (8.5-10.1); Carbon Dioxide 30 mmol/L (21-32); Chloride 99 mmol/L (98-107); Est GFR (African American) 67.2; Glucose 112 mg/dl (70-99); Lipase 70 U/L (73-393); Magnesium 1.9 mg/dl (1.8-2.4); Potassium 4.1 mmol/L (3.5-5.1); Sodium 135 mmol/L (136-145)
[2019-04-25 14:34] LABS: Albumin Globulin Ratio 0.9 (0.9-2); Alkaline Phosphatase 72 U/L (45-117); Bilirubin,Total 0.8 mg/dl (0.2-1); NT Pro B Type Natriuretic Pept 912 pg/ml (0-1800); Phosphorus 3.7 mg/dl (2.5-4.9); Total Protein 7.6 gm/dl (6.4-8.2); Troponin I < 0.015 ng/ml (0-0.045)
[2019-04-25 14:39] LABS: Prothrombin Time 10.6 Seconds (9.0-12.0)
--- NOTE | 2019-04-25 14:44 | XRay Report ---
XR chest 1V portable HISTORY: Atypical Chest Pain COMPARISON: Chest 04/17/2019. FINDINGS: Left-sided dual-chamber pacemaker is again noted. There are poststernotomy changes. Tortuou s thoracic aorta. The heart remains mildly enlarged. No pleural effusions. No pneumothorax. Old, heal ed right anterior rib fractures. The lungs are clear. No evidence for pulmonary edema. IMPRESSION: No significant change compared to the prior study. No acute process. Electronically signed by: Sergio Allred M.D. 04/25/2019 2:43 PM
[2019-04-25] MEDS ORDERED: ASPIRIN CHEW 324 MG PO STA (18:08)
[2019-04-25] MEDS ORDERED: NITROGLYCERIN SL 0.4 MG/TAB TAB SL STA (18:08)
--- NOTE | 2019-04-25 19:54 | History & Physical Report ---
Date of Service April 25, 2019 Assessment & Plan (1) Chest pain: Admit to PCU on telemetry for observation Vital signs every 4 hours Patient blood pressure is right now at the lower side 98/66. Hold losartan 25 mg p.o. every morning, metoprolol tartrate 75 mg p.o. twice daily, hydrochlorothiazide 25 mg p.o. every morning and restart in the morning if blood pressure is above 120/80. Continue isosorbide mononitrate 60 mg tablet every 24, continue ranolazine 1000mg PO BID. CBC CMP BMP daily Troponin every 6 hours to look to rule out acute coronary syndrome Troponin x2 negative so far KUB for acute constipation for 7 days Started GoLYTELY for constipation, 500 ms p.o. drink as tolerated once DVT prophylaxis Lovenox 40 mg sc nightly Consult cardiology if chest pain persists Full code Present on Admission?: Yes (2) GERD (gastroesophageal reflux disease): Stable continue home dose of as esomeprazole Present on Admission?: Yes (3) Essential hypertension: See above Present on Admission?: Yes (4) Constipation, acute: KUB pending, and clinical exam does not appear that patient has bowel obstruction. But if no bowel obstruction on KUB will start GoLYTELY 500 cc 1 p.o. Present on Admission?: Yes History of Present Illness Chief Complaint: Chest pain and constipation Primary Care Provider: Trae Garza Patient is a 79 years old male with past medical history of coronary artery disease with cardiac pacemaker CABG, patient had an STEMI 1 week ago, HTN, obstructive sleep apnea on CPAP, history of prostate cancer presents to the emergency room with complaint of persistent chest pain since this morning and constipation for 7 days. Patient said the pain is present does not radiate anywhere and it is a little bit better after he had nitroglycerin sublingual and is now 1 of 10 but never went away. Patient denies fever chills shortness of breath, abdominal pain, frequency urgency dysuria hematuria melena. Labs are reviewed: White blood cell 6.08, hemoglobin 12.1, hematocrit 35.4, platelets 136, PT 10.6, INR 1, sodium 135, potassium 4.1, chloride 99, BUN 28, creatinine 58, BNP 912, troponin 0 0.0152 negative, lipase 70. Chest x-ray no significant changes compared to the prior study no acute process no evidence of pulmonary edema, the lungs are clear, no pleural effusion, no pneumothorax. On April 20 patient had a stress test done which showed small, mild, anterolateral reversible perfusion defect consistent with a small amount of diagonal/OM distributed ischemia. Inferior infarct with mild [place]-infarct ischemia. Borderline dilated LV size. LVEF 34% inferior hypokinesis to akinesis. Known diagnostic stress ECG due to inability to reach target HR with Lexiscan and left bundle branch block. The stress test is compared to April 02, 2018 no significant changes. EKG atrial sensed ventricular paced rhythm with occasional premature ventricular complexes compared with April 17, 2019 no significant changes. Allergies Allergy/AdvReac Type Severity Reaction Status Date / Time oxycodone [From OxyContin] Allergy Unknown Hallucinati Verified 04/25/19 14:23 ng Sulfa (Sulfonamide Allergy Unknown rash Verified 04/25/19 14:23 Antibiotics) lisinopril AdvReac Mild cough Verified 04/25/19 14:23 ciprofloxacin [From Cipro] AdvReac Unknown see notes Verified 04/25/19 14:23 metoclopramide AdvReac Unknown Depression Verified 04/25/19 14:23 Home Medications Home Medications Medication Instructions Recorded Confirmed Type aspirin [Aspir-81] 81 mg PO QAM 06/19/18 04/25/19 History cholecalciferol (vitamin D3) 2,000 unit PO QAM 06/19/18 04/25/19 History [Vitamin D3] citalopram 10 mg PO QAM 06/19/18 04/25/19 History ezetimibe-simvastatin [Vytorin 1 tab PO HS 06/19/18 04/25/19 History 10-40] hydrochlorothiazide 25 mg PO QAM 06/19/18 04/25/19 History losartan 25 mg PO QAM 06/19/18 04/25/19 History multivitamin [Multiple Vitamins] 1 tab PO QAM 06/19/18 04/25/19 History isosorbide mononitrate ER 60 mg 60 mg PO QAM #30 tab 03/16/19 04/25/19 History tablet,extended release 24 hr trospium 20 mg tablet 20 mg PO BID #60 tab 03/16/19 04/25/19 History esomeprazole magnesium [Nexium] 40 mg PO BID #60 cap 04/20/19 04/25/19 Rx metoprolol tartrate 75 mg PO BID #90 tab 04/20/19 04/25/19 Rx ranolazine 1,000 mg PO BID #60 tab 04/20/19 04/25/19 Rx triamcinolone acetonide 1 appln TOP TID #15 gm 04/20/19 04/25/19 Rx Past Med/Surg History Medical History A-fib INCIDENTAL A.FIB/A. 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 ON ANTICOAGULATION AT THIS TIME IN SETTING OF HEMATURIA - ONLY ONE EPISDOE OF AFIB IN HX Arrhythmia HX PAROXYSMAL A FIB/A FLUTTER/NSVT/FREQUENT VENTRICULAR ECTOPY PER RECORDS CAD (coronary artery disease) S/P CABG X3 (2012) COPD (chronic obstructive pulmonary disease) STABLE Fistula BETWEEN BLADDER AND COLON/TO EVALUATE HEALING PROCESS WITH UPCOMING PROCEDURE GERD (gastroesophageal reflux disease) History of prostate cancer History of urinary incontinence Hx of cardiac pacemaker / SSS/HIGH GRADE AVB; ScaleGridTRONIC; IMPLANTED 09/2017 LAST PACER CHECK= WEEK OF AUG 31, 2018 Hx of myocardial infarction DURING CATHERIZATION 2013 HAD [place]... CABG X3 Hyperlipidemia Kyphosis Pulmonary HTN RVSP 40-50MMHG Rosacea SMA stenosis ASYMPTOMATIC; "INCIDENTAL FINDING" PER CARDIO Sleep apnea CPAP UTI (urinary tract infection) RE-OCCURING , ED 09/04/18 - CATH CHANGE AND AWAITING URINE CULTURE Surgical History H/O cystoscopy multiple. most recent 09/29/[address] Santana. MAC. No issues. 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 Smoked 1ppd x 20 years. ; Second Hand Exposure: No ; Hx Alcohol Use: Yes Alcohol type: hard liquor Hx Substance Use: No Review of Systems Review of Systems: All systems reviewed & are unremarkable except as noted in HPI & below Physical Exam Constitutional: WD/WN, vitals as above well developed Eyes: PERRL, conjunctivae normal, anicteric sclerae ENMT: external ear and nose normal, oropharynx normal Neck: trachea midline, no thyromegaly Respiratory: normal respiratory effort, lungs clear to auscultation Cardiovascular: Heart Sounds: normal S1 and normal S2 Palpation: + palpable S3 Gastrointestinal (Abdomen): Inspection/Auscultation: + abdomen distended (Mildly distended) Percussion/Palpation: + abdomen tender and abdomen soft Bowel sounds positive in all 4 quadrants. Chest pain is reproduced by palpation of the abdomen. Musculoskeletal: no cyanosis or clubbing, extremities motor strength 5/5 Skin: no rashes, warm and dry Neurologic: patellar DTR's 2+ bilat, sensation intact Psychiatric: A+Ox3, euthymic affect Lymphatic: no cervical or axillary lymphadenopathy Results & Data Vital Signs (Past 12 Hours) Vital Signs Temp Pulse Resp BP Pulse Ox 04/25/19 18:37 64 16 103/64 93 04/25/19 18:35 74 15 66/53 L 93 04/25/19 18:33 71 16 111/75 95 04/25/19 18:30 70 14 109/73 97 04/25/19 18:29 18 98/68 L 04/25/19 18:01 66 17 94 04/25/19 18:00 66 18 103/62 92 04/25/19 17:30 68 17 119/72 96 04/25/19 17:00 69 16 108/75 94 04/25/19 16:30 67 20 115/73 96 04/25/19 16:00 78 17 94/73 L 99 04/25/19 15:30 66 14 107/73 94 04/25/19 15:00 65 14 107/70 93 04/25/19 14:32 66 17 116/73 95 04/25/19 14:08 93 04/25/19 14:00 67 20 93 04/25/19 13:21 36.8 C 76 20 116/67 97 Code Status & VTE Plan Code Status Full code VTE Prophylaxis Plan VTE Prophylaxis will be ordered: Yes PG Care Time/CCT Total # of Minutes Spent Total Time Spent with Patient: Total time spent is greater than 50% in coordination of care (as documented) at patient's floor/unit and/or counseling patient: (1) Chest pain Chest pain type: unspecified Qualified Code(s): R07.9 - Chest pain, unspecified (2) GERD (gastroesophageal reflux disease) Esophagitis presence: esophagitis presence not specified Qualified Code(s): K21.9 - Gastro-esophageal reflux disease without esophagitis
[2019-04-25] MEDS ORDERED: ACETAMINOPHEN 325 MG TAB PO PRN (21:04)
[2019-04-25] MEDS ORDERED: ALUMINUM/MAGNESIUM SUSP 30 ML UDC PO PRN (21:04)
[2019-04-25] MEDS ORDERED: LAVAGE SOLN 240ML BOTTLE PO ONE (21:45)
[2019-04-25] MEDS ORDERED: EZETIMIBE/SIMVASTATIN 10/40MG 1 TAB TAB PO SCH (22:00)
[2019-04-25] MEDS ORDERED: ENOXAPARIN INJ 40 MG/0.4 ML SYR SQ SCH (22:00)
[2019-04-25] MEDS: TRIAMCINOLONE ACET 0.1% CR 15 GM TUBE TOP SCH (22:04)
[2019-04-25] MEDS: PANTOprazole 40 MG TAB PO SCH (22:06)
[2019-04-25] MEDS: RANOLAZINE 500 MG ER TAB PO SCH (22:06)
--- NOTE | 2019-04-25 22:17 | XRay Report ---
KUB HISTORY: constipation COMPARISON: None. FINDINGS: Moderate to large amount of well-formed stool seen throughout the colon. A mildly dilated g as-filled loop of small bowel seen within the left side the abdomen. This measures up to 3.6 cm in di ameter. This may represent a mild ileus. No renal calculi. No ureteral calculi. Calcifications in th e deep pelvis likely represent phleboliths. No pneumoperitoneum or pneumatosis. Pacemaker wires are n oted. There are poststernotomy changes. IMPRESSION: 1. Moderate to large amount of well-formed stool seen throughout the colon. 2. Mildly dilated gas-filled loop of small bowel within the left side of the abdomen. This is indeter minate but could represent a mild ileus. Bowel obstruction is considered less likely. Electronically signed by: Sergio Allred M.D. 04/25/2019 10:16 PM
[2019-04-25] MEDS ORDERED: MoRPHine SULFATE 2 MG/ML CARP IV STA (23:31)
--- NOTE | 2019-04-26 03:19 | Emergency Department Note ---
Entered by Daisy Santo acting as a scribe for Tavares Jefferson MD History of Present Illness General Chief complaint: Chest Pain Stated complaint: CHEST PAIN Time Seen by Provider: 04/25/19 14:01 Source: patient and family History of Present Illness Provider complaint: chest pain Onset (ago): hour(s) 2 Location: chest Severity: similar to prior episodes Pain Consistency: + now resolved Maximum Pain Intensity: 2 Current Pain Intensity: 4 Associated symptoms: + denies other symptoms The patient is a 79 year old male who presents to the Emergency Room with complaints of episode of chest pain 2 hours ago. Per the patients , the patient had an episode of chest pain that lasted 1.5 hours, but has now resolved. She notes that his pain level was a 4/10, which was similar to his previous heart attack. She notes that the patient was just sitting in the car when the episode started. She notes that the patient was discharged Friday for a heart attack. She states that they did not do any intervention. She states that the patients troponin level was elevated during his last heart attack. She notes that the maximum level was 0.9. The patient denies any other symptoms during the episode. He denies any pain currently. The reports that the patient has a history of reflux. Home Medications Home Medications Medication Instructions Recorded Confirmed Type aspirin [Aspir-81] 81 mg PO QAM 06/19/18 04/25/19 History cholecalciferol (vitamin D3) 2,000 unit PO QAM 06/19/18 04/25/19 History [Vitamin D3] citalopram 10 mg PO QAM 06/19/18 04/25/19 History ezetimibe-simvastatin [Vytorin 1 tab PO HS 06/19/18 04/25/19 History 10-40] hydrochlorothiazide 25 mg PO QAM 06/19/18 04/25/19 History losartan 25 mg PO QAM 06/19/18 04/25/19 History multivitamin [Multiple Vitamins] 1 tab PO QAM 06/19/18 04/25/19 History isosorbide mononitrate ER 60 mg 60 mg PO QAM #30 tab 03/16/19 04/25/19 History tablet,extended release 24 hr trospium 20 mg tablet 20 mg PO BID #60 tab 03/16/19 04/25/19 History esomeprazole magnesium [Nexium] 40 mg PO BID #60 cap 04/20/19 04/25/19 Rx metoprolol tartrate 75 mg PO BID #90 tab 04/20/19 04/25/19 Rx ranolazine 1,000 mg PO BID #60 tab 04/20/19 04/25/19 Rx triamcinolone acetonide 1 appln TOP TID #15 gm 04/20/19 04/25/19 Rx Allergies Allergy/AdvReac Type Severity Reaction Status Date / Time oxycodone [From OxyContin] Allergy Unknown Hallucinati Verified 04/25/19 14:23 ng Sulfa (Sulfonamide Allergy Unknown rash Verified 04/25/19 14:23 Antibiotics) lisinopril AdvReac Mild cough Verified 04/25/19 14:23 ciprofloxacin [From Cipro] AdvReac Unknown see notes Verified 04/25/19 14:23 metoclopramide AdvReac Unknown Depression Verified 04/25/19 14:23 Past Med/Surg History Medical History A-fib INCIDENTAL A.FIB/A. 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 CABG X3 Hyperlipidemia Kyphosis Pulmonary HTN RVSP 40-50MMHG Rosacea SMA stenosis ASYMPTOMATIC; "INCIDENTAL FINDING" PER CARDIO Sleep apnea CPAP UTI (urinary tract infection) RE-OCCURING , ED 09/04/18 - CATH CHANGE AND AWAITING URINE CULTURE Surgical History H/O cystoscopy multiple. most recent 09/29/[address] Santana. MAC. No issues. History of arthroplasty of right knee History of cardiac cath (HX MULTIPLE CATHS/TOTAL OF 2 STENTS) MOST RECENT...03/25/18 ABNORMAL STRESS TEST/NO STENTS History of robot-assisted laparoscopic radical prostatectomy Hx of bilateral cataract extraction WITH LASIK PROCEDURE Hx of colonoscopy Hx of heart bypass surgery S/P CABG X 3 (2012) Hx of tooth extraction Family History Other Hypertension Social History Preferred Language: Indonesian Communication Ability: Effective Visual Impairment: No Limitations Belt Cutter Required: No Beliefs That Will Affect Care: None marital status: Current Living Situation: Spouse Other Information That Helps Us Care for You: No Feels Safe at Home: Yes Safety Concerns: Feels Safe At This Time Smoking Status: Former smoker Tobacco Type: cigarettes ; Cigarettes Per Day: QUIT 30 YRS AGO. Smoked 1ppd x 20 years. ; Do You Dip or Chew Tobacco: No ; Second Hand Exposure: No ; Tobacco Cessation Education Requested by Patient: No Hx Alcohol Use: Yes Alcohol type: hard liquor Hx Substance Use: No Review of Systems See HPI for pertinent positives & negatives. and A total of 10 systems reviewed and were otherwise negative Physical Exam Vital Signs Vital Signs - 24 hr 04/25/19 13:21 04/25/19 14:00 04/25/19 14:08 Temperature 36.8 C Temperature Source Oral Sepsis Recent Fever Within 48 Hours No Sepsis Action Taken by Nursing No Action Required Pulse Rate 76 67 Pulse Rate [Finger] Pulse Rate from SpO2 Sensor 68 Respiratory Rate 20 20 Respiratory Effort / Characteristics Non-Labored Spontaneous Respiratory Depth Normal Respiratory Pattern Regular Blood Pressure 116/67 Blood Pressure [Right Arm] Blood Pressure Mean 83 Blood Pressure Mean [Right Arm] Blood Pressure Position Sitting Pulse Oximetry 97 93 93 Oxygen Delivery Method Room Air Room Air Oxygen Flow Rate 04/25/19 14:32 04/25/19 15:00 04/25/19 15:30 Temperature Temperature Source Sepsis Recent Fever Within 48 Hours Sepsis Action Taken by Nursing Pulse Rate 66 65 66 Pulse Rate [Finger] Pulse Rate from SpO2 Sensor 66 64 66 Respiratory Rate 17 14 14 Respiratory Effort / Characteristics Respiratory Depth Respiratory Pattern Blood Pressure 116/73 107/70 107/73 Blood Pressure [Right Arm] Blood Pressure Mean 87 82 84 Blood Pressure Mean [Right Arm] Blood Pressure Position Pulse Oximetry 95 93 94 Oxygen Delivery Method Oxygen Flow Rate 04/25/19 16:00 04/25/19 16:30 04/25/19 17:00 Temperature Temperature Source Sepsis Recent Fever Within 48 Hours Sepsis Action Taken by Nursing Pulse Rate 78 67 69 Pulse Rate [Finger] Pulse Rate from SpO2 Sensor 74 68 68 Respiratory Rate 17 20 16 Respiratory Effort / Characteristics Respiratory Depth Respiratory Pattern Blood Pressure 94/73 L 115/73 108/75 Blood Pressure [Right Arm] Blood Pressure Mean 80 87 86 Blood Pressure Mean [Right Arm] Blood Pressure Position Pulse Oximetry 99 96 94 Oxygen Delivery Method Oxygen Flow Rate 04/25/19 17:30 04/25/19 18:00 04/25/19 18:01 Temperature Temperature Source Sepsis Recent Fever Within 48 Hours Sepsis Action Taken by Nursing Pulse Rate 68 66 66 Pulse Rate [Finger] Pulse Rate from SpO2 Sensor 63 67 66 Respiratory Rate 17 18 17 Respiratory Effort / Characteristics Respiratory Depth Respiratory Pattern Blood Pressure 119/72 103/62 Blood Pressure [Right Arm] Blood Pressure Mean 87 75 Blood Pressure Mean [Right Arm] Blood Pressure Position Pulse Oximetry 96 92 94 Oxygen Delivery Method Oxygen Flow Rate 04/25/19 18:29 04/25/19 18:30 04/25/19 18:33 Temperature Temperature Source Sepsis Recent Fever Within 48 Hours Sepsis Action Taken by Nursing Pulse Rate 70 71 Pulse Rate [Finger] Pulse Rate from SpO2 Sensor 75 71 Respiratory Rate 18 14 16 Respiratory Effort / Characteristics Respiratory Depth Respiratory Pattern Blood Pressure 98/68 L 109/73 111/75 Blood Pressure [Right Arm] Blood Pressure Mean 78 85 87 Blood Pressure Mean [Right Arm] Blood Pressure Position Pulse Oximetry 97 95 Oxygen Delivery Method Oxygen Flow Rate 04/25/19 18:35 04/25/19 18:37 04/25/19 19:41 Temperature Temperature Source Sepsis Recent Fever Within 48 Hours Sepsis Action Taken by Nursing Pulse Rate 74 64 Pulse Rate [Finger] 69 Pulse Rate from SpO2 Sensor 74 74 Respiratory Rate 15 16 20 Respiratory Effort / Characteristics Non-Labored Spontaneous Respiratory Depth Normal Respiratory Pattern Blood Pressure 66/53 L 103/64 Blood Pressure [Right Arm] 98/66 L Blood Pressure Mean 57 77 Blood Pressure Mean [Right Arm] 76 Blood Pressure Position Pulse Oximetry 93 93 Oxygen Delivery Method Nasal Cannula Oxygen Flow Rate 2 GENERAL: Awake, alert, fatigued-appearing, in no distress HENT: Normocephalic, atraumatic. Oropharynx with dry mucous membranes and otherwise unremarkable. EYES: Normal conjunctiva. Sclera non-icteric. NECK: Supple. No nuchal rigidity. FROM. No JVD. RESPIRATORY: CTAB. CARDIAC: Regular rate, normal rhythm. Extremities warm and well perfused. Pulses equal. ABDOMEN: Soft, non-distended. No tenderness to palpation. No rebound or guarding. No masses. RECTAL: Deferred. MUSCULOSKELETAL: Chest examination reveals no tenderness. The back is symmetrical on inspection without obvious abnormality. There is no CVA tenderness to palpation. No joint edema. LOWER EXTREMITIES: Calves are equal size bilaterally and non-tender. No edema. No discoloration. NEURO: Normal sensorium. No sensory or motor deficits noted. SKIN: No rash or jaundice noted. Course 1407: The patient was evaluated in room C4, and a complete history and physical examination were performed. 1500: I talked to [employer] and there was no concern for arrhythmia. 1624: I discussed the patient's case with Dr. Casanova- [facility] Cardiology, he states that if the patient's next troponin was negative, than it is reasonable to have the patient follow up at outpatient. 1638: I reevaluated the patient and updated him on his results. 1815: I reevaluated the patient and he was hypotensive with nitroglycerine, but improved with Trendelenburg. 1840: I discussed the patient's case with Dr. Banks- [facility] Hospitalist, he will accept the patient for further evaluation. Administered Medications Enoxaparin Sodium (Lovenox) 40 mg SQ Q24H VENICE Stop: 05/25/19 21:59 Last Admin: 04/25/19 22:05 Dose: 40 mg Documented by: [id number] Ezetimibe/Simvastatin (Vytorin 10/40 Mg) 1 tab PO HS VEINCE Stop: 05/25/19 21:59 Last Admin: 04/25/19 22:07 Dose: 1 tab Documented by: [id number] Miscellaneous (Order Awaiting Action) 1 ea N/A QS VENICE Stop: 05/26/19 00:00 Last Admin: 04/26/19 00:24 Dose: Not Given Documented by: [id number] Pantoprazole Sodium (Protonix) 40 mg PO BID VENICE Stop: 05/25/19 21:59 Last Admin: 04/25/19 22:06 Dose: 40 mg Documented by: [id number] Ranolazine (Ranexa) 1,000 mg PO BID VENICE Stop: 05/25/19 21:59 Last Admin: 04/25/19 22:06 Dose: 1,000 mg Documented by: [id number] Triamcinolone Acetonide (Kenalog 0.1%) 1 appln TOP TID VENICE Stop: 05/25/19 21:03 Last Admin: 04/25/19 22:04 Dose: 1 appln Documented by: [id number] Discontinued Medications Aspirin (Aspirin) 324 mg PO NOW STA Stop: 04/25/19 18:09 Last Admin: 04/25/19 18:28 Dose: 324 mg Documented by: [id number] Morphine Sulfate (Morphine Sulfate) 2 mg IV NOW STA Stop: 04/25/19 23:32 Last Admin: 04/25/19 23:43 Dose: 2 mg Documented by: [id number] Nitroglycerin (Nitrostat) 0.4 mg SL NOW STA Stop: 04/25/19 18:09 Last Admin: 04/25/19 18:31 Dose: 0.4 mg Documented by: [id number] Polyethylene Glycol/Electrolytes (Golytely) 2 dose PO ONE ONE Stop: 04/25/19 21:46 Last Admin: 04/25/19 22:03 Dose: 2 dose Documented by: [id number] Medical Decision Making Differential Diagnosis Differential diagnosis: Etiologies such as cardiac ischemia, aortic dissection, pulmonary embolism, electrolyte abnormality, acidosis, tension pneumothorax, hypothermia, hypovolemia, intracranial event, as well as others were entertained. Medical Records Attestation: I reviewed the patient's medical records. Home Medications Current Medication List: was personally reviewed by me Laboratory Data Attestation: I reviewed the patient's lab results. Result diagrams: 04/25/19 13:35 04/25/19 13:35 Lab Results 04/25/19 04/25/19 04/25/19 Range/Units 13:35 13:35 13:35 WBC 6.08 (4.8-10.8) K/uL RBC 3.96 L (4.7-6.1) M/uL Hgb 12.1 L (14.0-18.0) g/dL Hct 35.4 L (42-52) % MCV 89.4 (80-100) fL MCH 30.6 (25-34) pg MCHC 34.2 (32-36) g/dL RDW Std Deviation 40.8 (36.4-46.3) fL RDW Coeff of Ricky 12.6 (11.5-14.5) % Plt Count 136 (130-400) K/uL MPV 11.1 H (7.4-10.4) fL Immature Gran % (Auto) 0.3 % Neut % (Auto) 69.2 % Lymph % (Auto) 12.8 % Trego % (Auto) 14.6 % Eos % (Auto) 2.8 % Baso % (Auto) 0.3 % Immature Gran # (Auto) 0.02 (0.00-0.02) K/uL Neut # (Auto) 4.20 (1.4-6.5) K/uL Lymph # (Auto) 0.78 L (1.2-3.4) K/uL Trego # (Auto) 0.89 H (0.11-0.59) K/uL Eos # (Auto) 0.17 (0-0.5) K/uL Baso # (Auto) 0.02 (0-0.2) K/uL PT 10.6 (9.0-12.0) Seconds INR 1.0 (0.9-1.1) Sodium 135 L (136-145) mmol/L Potassium 4.1 (3.5-5.1) mmol/L Chloride 99 (98-107) mmol/L Carbon Dioxide 30 (21-32) mmol/L Anion Gap 6.0 (3-11) BUN 28 H (7-18) mg/dl Creatinine 1.20 (0.6-1.4) mg/dl Est Cr Clr Drug Dosing 67.0 ml/min Est GFR ( Amer) 67.2 Est GFR (Non-Af Amer) 58.0 BUN/Creatinine Ratio 23.6 H (10-20) Glucose 112 H (70-99) mg/dl Calcium 9.2 (8.5-10.1) mg/dl Phosphorus 3.7 (2.5-4.9) mg/dl Magnesium 1.9 (1.8-2.4) mg/dl Total Bilirubin 0.8 (0.2-1) mg/dl Direct Bilirubin 0.2 (0-0.2) mg/dl AST 15 (15-37) U/L ALT 22 (12-78) U/L Alkaline Phosphatase 72 (45-117) U/L Troponin I < 0.015 (0-0.045) ng/ml NT-Pro-B Natriuret Pep 912 (0-1800) pg/ml Total Protein 7.6 (6.4-8.2) gm/dl Albumin 3.6 (3.4-5.0) gm/dl Globulin 4.0 (2.5-4.0) gm/dl Albumin/Globulin Ratio 0.9 (0.9-2) Lipase 70 L (73-393) U/L 04/25/19 Range/Units 17:34 WBC (4.8-10.8) K/uL RBC (4.7-6.1) M/uL Hgb (14.0-18.0) g/dL Hct (42-52) % MCV (80-100) fL MCH (25-34) pg MCHC (32-36) g/dL RDW Std Deviation (36.4-46.3) fL RDW Coeff of Ricky (11.5-14.5) % Plt Count (130-400) K/uL MPV (7.4-10.4) fL Immature Gran % (Auto) % Neut % (Auto) % Lymph % (Auto) % Trego % (Auto) % Eos % (Auto) % Baso % (Auto) % Immature Gran # (Auto) (0.00-0.02) K/uL Neut # (Auto) (1.4-6.5) K/uL Lymph # (Auto) (1.2-3.4) K/uL Trego # (Auto) (0.11-0.59) K/uL Eos # (Auto) (0-0.5) K/uL Baso # (Auto) (0-0.2) K/uL PT (9.0-12.0) Seconds INR (0.9-1.1) Sodium (136-145) mmol/L Potassium (3.5-5.1) mmol/L Chloride (98-107) mmol/L Carbon Dioxide (21-32) mmol/L Anion Gap (3-11) BUN (7-18) mg/dl Creatinine (0.6-1.4) mg/dl Est Cr Clr Drug Dosing ml/min Est GFR ( Amer) Est GFR (Non-Af Amer) BUN/Creatinine Ratio (10-20) Glucose (70-99) mg/dl Calcium (8.5-10.1) mg/dl Phosphorus (2.5-4.9) mg/dl Magnesium (1.8-2.4) mg/dl Total Bilirubin (0.2-1) mg/dl Direct Bilirubin (0-0.2) mg/dl AST (15-37) U/L ALT (12-78) U/L Alkaline Phosphatase (45-117) U/L Troponin I < 0.015 (0-0.045) ng/ml NT-Pro-B Natriuret Pep (0-1800) pg/ml Total Protein (6.4-8.2) gm/dl Albumin (3.4-5.0) gm/dl Globulin (2.5-4.0) gm/dl Albumin/Globulin Ratio (0.9-2) Lipase (73-393) U/L Imaging Data Radiologist's Impression: Radiology results as stated below per my review and the radiologist's interpretation: XR chest 1V portable HISTORY: Atypical Chest Pain COMPARISON: Chest 04/17/2019. FINDINGS: Left-sided dual-chamber pacemaker is again noted. There are poststernotomy changes. Tortuous thoracic aorta. The heart remains mildly enlarged. No pleural effusions. No pneumothorax. Old, healed right anterior rib fractures. The lungs are clear. No evidence for pulmonary edema. IMPRESSION: No significant change compared to the prior study. No acute process. Electronically signed by: Sergio Allred M.D. 04/25/2019 2:43 PM ECG Data Attestation: I personally reviewed and interpreted this ECG as follows: Indication: chest pain Rate (beats per minute): 76 Rhythm: other (AV duel paced rhythm ) Findings: no PAC, no PVC, no acute ischemic change and no ectopy Comparison ECG Date: no prior available Blood Pressure Blood Pressure Findings: Normal blood pressure Blood Pressure Disposition: did not require urgent referral MDM Narrative The patient is a pleasant 79 yo gentleman with a pmhx of CAD s/p CABG, afib/aflutter, heart block s/p PPM who presents to the emergency department with episode of left sided CP that began around 12:30 and last 1.5h per HPI. Of note, patient was dicharged on 04/20 after NSTEMI that was managed medically. Nuclear stress test was performed and was similar to 2018. If patient were to ever require cath, would need to be down at [facility] pres 2/2 h/o of dissection on prior cath. On arrival the patient is in NAD, AFVSS. He denies sx at this time. EKG demonstrates paced rhythm. CXR negative for acute process. WBC and platelets wnl. H/H 12.1/35.4 similar to prior values. Chemistry without acidosis. Electrolytes and LFTs unremarkable. Initial troponin negative and undetectable. Case was d/w Dr. Casanova, [place] cardiology on-call, and we agree that if patient continues to remain asymptomatic and his delta troponin is again negative, would be reasonable to have patient f/u outpatient. Delta troponin was drawn however prior to result patient again began to report 4/5 left sided CP. Delta troponin subsequently again negative and undetectable however given recurrent sx, reasonable to admit for further observation. Patient was given NTG to see if sx improved. He subsequently experienced transient hypotension but did recover with Trendelenberg and IVF. Patient was also improved to 2/10. Case d/w Dr. Banks, [facility], who will evaluate the patient for admission. Impression & Plan Chest pain, H/O three vessel coronary artery bypass Discharge Plan Visit Data *Final* Discharge Date/Time: 04/25/19 20:21 Chief Complaint: Chest Pain Stated Complaint: CHEST PAIN ED Provider: Tavares Jefferson Discharge Problem: Chest pain, H/O three vessel coronary artery bypass Patient Disposition: Admitted As Inpatient Discharge Instructions Interventions: ED Discharge Assessment Last Done: 04/25/19 20:21 The scribe's documentation has been prepared under my direction and personally reviewed by me in its entirety. I confirm that the note above accurately re flects all work, treatment, procedures, and medical decision making performed by me.
[2019-04-26] MEDS: RANOLAZINE 500 MG ER TAB PO SCH (08:22)
[2019-04-26] MEDS: TRIAMCINOLONE ACET 0.1% CR 15 GM TUBE TOP SCH ×2 (08:24→14:13)
[2019-04-26] MEDS ORDERED: ASPIRIN 81 MG ECTAB PO SCH (09:00)
[2019-04-26] MEDS ORDERED: CHOLECALCIFEROL 1,000 UNITS TAB PO SCH (09:00)
[2019-04-26] MEDS ORDERED: MULTIVITAMIN TAB PO SCH (09:00)
[2019-04-26] MEDS ORDERED: CITALOPRAM 20 MG TAB PO SCH (09:00)
[2019-04-26] MEDS ORDERED: ISOSORBIDE MONO EXTENDED REL 60 MG TABCR PO SCH (09:00)
[2019-04-26] MEDS: PANTOprazole 40 MG TAB PO SCH (09:14)
--- NOTE | 2019-04-26 10:52 | Hospitalist Progress Note ---
Date of Service April 26, 2019 Assessment & Plan (1) Chest pain: Continue to PCU on telemetry for observation Vital signs every 4 hours Patient blood pressure improved to 130/74 Hold losartan 25 mg p.o. every morning, metoprolol tartrate 75 mg p.o. twice daily, hydrochlorothiazide 25 mg p.o. every morning and restart in the morning if blood pressure is above 120/80. Continue isosorbide mononitrate 60 mg tablet every 24, continue ranolazine 1000mg PO BID. CBC CMP BMP daily Troponin every 6 hours to look to rule out acute coronary syndrome Troponin x2 negative so far KUB for acute constipation for 7 days-mild ileitis, constipation DVT prophylaxis Lovenox 40 mg sc nightly Consult cardiology if chest pain persists Full code (2) GERD (gastroesophageal reflux disease): Stable continue home dose of as esomeprazole (3) Essential hypertension: See above (4) Constipation, acute: Resolved Subjective Patient is comfortably resting in the bed. Afebrile. He reports no chest pain at this time. He had 3 or 4 liquid bowel movements after he had 2 cups of GoLYTELY. Troponins x3-. No changes in the EKG. Patient is n.p.o. for mild ileitis but he reports no nausea or vomiting and he would like to try some clear liquids and advance diet as tolerated. Patient denies fever chills headache chest pain shortness of breath abdominal pain frequency urgency hemoptysis hematemesis melena. Review of Systems Review of Systems: All systems reviewed & are unremarkable except as noted in HPI & below Physical Exam Constitutional: WD/WN, vitals as above well developed Eyes: PERRL, conjunctivae normal, anicteric sclerae ENMT: external ear and nose normal, oropharynx normal Neck: trachea midline, no thyromegaly Respiratory: normal respiratory effort, lungs clear to auscultation Cardiovascular: Heart Sounds: normal S1 and normal S2 Palpation: + palpable S3 Gastrointestinal (Abdomen): Inspection/Auscultation: + abdomen distended (Mildly distended) Percussion/Palpation: + abdomen tender and abdomen soft Musculoskeletal: no cyanosis or clubbing, extremities motor strength 5/5 Skin: no rashes, warm and dry Neurologic: patellar DTR's 2+ bilat, sensation intact Psychiatric: A+Ox3, euthymic affect Lymphatic: no cervical or axillary lymphadenopathy Results & Data Vital Signs (Past 12 Hours) Vital Signs Temp Pulse Pulse Resp BP BP Pulse Ox 04/26/19 07:28 36.7 C 74 18 130/74 93 04/26/19 07:25 71 04/26/19 03:18 36.5 C 74 18 124/74 93 04/26/19 00:00 81 04/25/19 23:05 36.3 C L 69 18 113/66 93 PG Care Time/CCT Total # of Minutes Spent Total Time Spent with Patient: Total time spent is greater than 50% in coordination of care (as documented) at patient's floor/unit and/or counseling patient: (1) Chest pain Chest pain type: unspecified Qualified Code(s): R07.9 - Chest pain, unspecified (2) GERD (gastroesophageal reflux disease) Esophagitis presence: esophagitis presence not specified Qualified Code(s): K21.9 - Gastro-esophageal reflux disease without esophagitis
--- NOTE | 2019-04-28 12:30 | Discharge Summary ---
Date of Service April 28, 2019 Admission HPI Per Admitting Provider Patient is a 79 years old male with past medical history of coronary artery disease with cardiac pacemaker CABG, patient had an STEMI 1 week ago, HTN, obstructive sleep apnea on CPAP, history of prostate cancer presents to the emergency room with complaint of persistent chest pain since this morning and constipation for 7 days. Patient said the pain is present does not radiate anywhere and it is a little bit better after he had nitroglycerin sublingual and is now 1 of 10 but never went away. Patient denies fever chills shortness of breath, abdominal pain, frequency urgency dysuria hematuria melena. Labs are reviewed: White blood cell 6.08, hemoglobin 12.1, hematocrit 35.4, platelets 136, PT 10.6, INR 1, sodium 135, potassium 4.1, chloride 99, BUN 28, creatinine 58, BNP 912, troponin 0 0.0152 negative, lipase 70. Chest x-ray no significant changes compared to the prior study no acute process no evidence of pulmonary edema, the lungs are clear, no pleural effusion, no pneumothorax. On April 20 patient had a stress test done which showed small, mild, anterolateral reversible perfusion defect consistent with a small amount of diagonal/OM distributed ischemia. Inferior infarct with mild austin-infarct ischemia. Borderline dilated LV size. LVEF 34% inferior hypokinesis to akinesis. Known diagnostic stress ECG due to inability to reach target HR with Lexiscan and left bundle branch block. The stress test is compared to April 02, 2018 no significant changes. EKG atrial sensed ventricular paced rhythm with occasional premature ventricular complexes compared with April 17, 2019 no significant changes. Principal Diagnosis none Discharge Exam Constitutional WD/WN, vitals as above well developed Eyes PERRL, conjunctivae normal, anicteric sclerae ENMT external ear and nose normal, oropharynx normal Neck trachea midline, no thyromegaly Respiratory normal respiratory effort, lungs clear to auscultation Cardiovascular Heart Sounds: normal S1 and normal S2 Palpation: + palpable S3 Gastrointestinal (Abdomen) Inspection/Auscultation: + abdomen distended (Mildly distended) Percussion/Palpation: + abdomen tender and abdomen soft Musculoskeletal no cyanosis or clubbing, extremities motor strength 5/5 Skin no rashes, warm and dry Neurologic patellar DTR's 2+ bilat, sensation intact Psychiatric A+Ox3, euthymic affect Lymphatic no cervical or axillary lymphadenopathy Discharge Data Allergies Allergy/AdvReac Type Severity Reaction Status Date / Time oxycodone [From OxyContin] Allergy Unknown Hallucinati Verified 04/27/19 14:46 ng Sulfa (Sulfonamide Allergy Unknown rash Verified 04/27/19 14:46 Antibiotics) lisinopril AdvReac Mild cough Verified 04/27/19 14:46 ciprofloxacin [From Cipro] AdvReac Unknown see notes Verified 04/27/19 14:46 metoclopramide AdvReac Unknown Depression Verified 04/27/19 14:46 Consultations 04/25/19 18:13 ED Decision to Admit Stat Hospital Course (1) Chest pain: Continue to PCU on telemetry for observation. Pt had full bowel movement and stated that his chest pain is gone. His all troponins are negative. Requested to go home. Full code (2) GERD (gastroesophageal reflux disease): Stable continue home dose of as esomeprazole (3) Essential hypertension: See above (4) Constipation, acute: Resolved Total Time Total Time Spent Total Time Spent (In Minutes): over 35min Discharge Plan Discharge Items Patient Disposition: Home - Self-Care Reason For Visit: CHEST PAIN Discharge Diagnosis: constipation, mild ileus Discharge Goals: Decrease discomfort, Diagnostic testing and Improve disease control Activity: Per 'Additional Instructions' section Lifting: Gradually increase as tolerated and No more than 5 pounds Bathing: No limitations Sexual Activity: When tolerated Non-emergency contact: Primary Care Provider and Color Matcher Call non-emergency contact if: you have any medication questions, your symptoms worsen, your pain is worsening, your pain is unusual for you, your pain is concerning for you and your temperature is above 100.5 Follow-up/Referrals: Trae Garza [Primary Care Provider] - Diet: Heart Healthy, Low Fat and Low Sodium (2gm) Addtl Provider Instructions: Follow up with your PCP in 7 days. Take Golytely 1 cup daily prn for constipation. Follow up with cardiology at your already scheduled appointment. Prescriptions: New Golytely 227.1-21.5-6.36 gram powder in packet 30 ml PO DAILY PRN (Reason: constipation) 30 Days Qty: 1 RF: 0 Continued isosorbide mononitrate 60 mg tablet extended release 24 hr 60 mg PO QAM Qty: 30 RF: 0 trospium 20 mg tablet 20 mg PO BID Qty: 60 RF: 0 triamcinolone acetonide 0.1 % cream 1 appln TOP TID Qty: 15 RF: 0 esomeprazole magnesium [Nexium] 40 mg Capsule,Delayed Release(Dr/Ec) 40 mg PO BID Qty: 60 RF: 1 metoprolol tartrate 50 mg Tablet 75 mg PO BID Qty: 90 RF: 2 ranolazine 1,000 mg tablet extended release 12 hr 1,000 mg PO BID Qty: 60 RF: 2 multivitamin [Multiple Vitamins] Tablet 1 tab PO QAM RF: 0 citalopram 10 mg Tablet 10 mg PO QAM RF: 0 aspirin [Aspir-81] 81 mg Tablet,Delayed Release (Dr/Ec) 81 mg PO QAM RF: 0 losartan 25 mg Tablet 25 mg PO QAM RF: 0 hydrochlorothiazide 25 mg Tablet 25 mg PO QAM RF: 0 ezetimibe-simvastatin [Vytorin 10-40] 10-40 mg Tablet 1 tab PO HS RF: 0 cholecalciferol (vitamin D3) [Vitamin D3] 2,000 unit Capsule 2,000 unit PO QAM RF: 0 Stand-Alone Forms: [facility] Discharge Orders: Discharge Order (Routine); Ordered 04/26/19 Ordered By: Jean Marie Banks Admission Data Admit Date/Time: 04/25/19 19:43 Attending Provider: Jean Marie Banks Admit Provider: Jean Marie Banks Primary Care Provider: Trae Garza Other Providers: Jean Marie Banks Service: Telemetry Other Interventions: Discharge Summary Assessment (RN) Last Done: 04/26/19 14:50 DC Date/Time DO NOT enter until pt leaves facility: 04/26/19 15:33
== END 2019-04-26 15:33 | disposition home or self-care (01) ==
LOC: ED 13:20 → 2S 13:20

== ENCOUNTER 2019-05-21 13:51 | Inpatient (IN) ==
[2019-05-21 14:47] LABS: Basophils # (auto) 0.01 K/uL (0-0.2); Basophils % (auto) 0.2 %; Eosinophils # (auto) 0.12 K/uL (0-0.5); Eosinophils % (auto) 2.5 %; Hematocrit (blood only) 38.5 % (42-52); Hemoglobin 13.3 g/dL (14.0-18.0); Immature Granulocytes # (auto) 0.03 K/uL (0.00-0.02); Immature Granulocytes % (auto) 0.6 %; Lymphocytes # (auto) 0.77 K/uL (1.2-3.4); Lymphocytes % (auto) 16.1 %; Mean Corpuscular Hemoglobin 31.2 pg (25-34); Mean Corpuscular Hgb Conc 34.5 g/dL (32-36); Mean Corpuscular Volume 90.4 fL (80-100); Mean Platelet Volume 10.2 fL (7.4-10.4); Monocytes # (auto) 0.55 K/uL (0.11-0.59); Monocytes % (auto) 11.5 %; Neutrophils % (auto) 69.1 %; Platelet Count 123 K/uL (130-400); RDW Coefficient of Variation 13.2 % (11.5-14.5); RDW Standard Deviation 43.2 fL (36.4-46.3); Red Blood Count 4.26 M/uL (4.7-6.1); White Blood Count 4.78 K/uL (4.8-10.8)
[2019-05-21 15:00] LABS: Albumin Level 3.8 gm/dl (3.4-5.0); BUN Creatinine Ratio 14.3 (10-20); Creatinine Clr Calc Pharmacy 59.2 ml/min; Est GFR (African American) 68.6; Est GFR (Non-African American) 59.2; Potassium 3.5 mmol/L (3.5-5.1)
--- NOTE | 2019-05-21 15:01 | XRay Report ---
XR chest 1V portable HISTORY: 79 years-old Male Chest Pain acute atypical chest pain COMPARISON: Chest radiograph 04/25/2019 TECHNIQUE: Portable AP view of the chest FINDINGS: Cardiomegaly with prior median sternotomy. Stable positioning of left subclavian pacer. Prominence of the thoracic aortic arch with calcified plaque. Remote healed right-sided rib fractures. No pneumoth orax, pleural effusion, focal airspace consolidation or overt pulmonary edema. Bones of the chest thad ear grossly intact. IMPRESSION: Cardiomegaly without acute process. The above report was generated using voice recognition software. It may contain grammatical, syntax o r spelling errors. Electronically signed by: Armando Willard M.D. 05/21/2019 3:00 PM
[2019-05-21 15:07] LABS: Bilirubin,Total 0.7 mg/dl (0.2-1); Total Protein 7.8 gm/dl (6.4-8.2); Troponin I 0.055 ng/ml (0-0.045)
[2019-05-21] MEDS ORDERED: NITROGLYCERIN 2% OINTMENT 30GM TUBE EXT STA (16:07)
[2019-05-21] MEDS ORDERED: HEPARIN SODIUM/DEXTROSE 25,000 UNITS/500 ML BAG IV SCH (16:15)
[2019-05-21] MEDS ORDERED: Heparin BOLUS **ED Use Only IV STA (16:51)
[2019-05-21 16:59] LABS: INR 1.1 (0.9-1.1); Partial Thromboplastin Time 25.9 Seconds (21.0-31.0); Prothrombin Time 10.9 Seconds (9.0-12.0)
[2019-05-21] MEDS: HEPARIN SODIUM/DEXTROSE 25,000 UNITS/500 ML BAG IV SCH (17:20)
--- NOTE | 2019-05-21 22:45 | Emergency Department Note ---
Entered by Ana Stephens acting as a scribe for Molina Olson MD ED Provider Note CHIEF COMPLAINT: Chest pain HISTORY OF PRESENT ILLNESS: The patient is a 79 year old male who presents to the Emergency Room with complaints of chest pain that started 1.5 hours ago. The patient states that his pain is mostly in the left side of his chest and it radiates to his left arm and left neck. The patient states that the pain was a 4/10 at its peak. The patient notes that his pain feels similar to his prior OK that occurred 2 months ago. Per , the patient is scheduled for a cath in 4 days. Per , the patient took 3 Aspirin prior to arrival. Pt denies LOC, headache, fevers, chills, diaphoresis, visual changes, neck pain, breathing difficulties, nausea, vomiting, abdominal pain, back pain, melena, hematochezia, urinary symptoms, numbness, weakness, lymphadenopathy, rash, or other complaints. REVIEW OF SYSTEMS: See HPI for pertinent positives and negatives. A total of ten systems were reviewed and were otherwise negative. PMHx/PSHx: OK, pacemaker, GERD, Afib, coronary artery disease, pulmonary hypertension, hyperlipidemia. SOCIAL HISTORY: Patient lives at home. PHYSICAL EXAM: GENERAL: Awake, alert, well-appearing, in no distress HENT: Normocephalic, atraumatic. Oropharynx unremarkable. EYES: PERRL. Normal conjunctiva. Sclera non-icteric. NECK: Inspection normal. Non-tender. Supple. No nuchal rigidity. FROM. No masses. RESPIRATORY: Clear to auscultation. No wheezes. No rales. Normal respiratory effort. CARDIAC: Normal rate. Normal rhythm. No murmurs. No rubs. Extremities warm and well perfused. Pulses equal. No JVD. GI: Soft, non-distended. No tenderness to palpation. No rebound or guarding. No masses. RECTAL: Deferred. MUSCULOSKELETAL: Atraumatic. Chest examination reveals no tenderness. The back is symmetrical on inspection without obvious abnormality. There is no CVA tenderness to palpation. No joint edema. LOWER EXTREMITIES: Calves are equal size bilaterally and non-tender. No edema. No discoloration. NEURO: Normal sensorium. No sensory or motor deficits noted. SKIN: No rash or jaundice noted. EMERGENCY DEPARTMENT COURSE: 1436: Past medical records reviewed. The patient was evaluated in room A2, and a complete history and physical examination were performed. 1602: I discussed the patient's case with Dr. Leonardo GARCÍA. He recommends transfer unless they cannot get him a bed today. It there are no beds, then he recommends admission here. He recommends starting the patient on Keppra. 1720: I updated the patient about the plan for transfer and he verbally agrees and understands. 1713: I discussed the patient's case with Dr. Barnes- [facility], Hospitalist. He will accept the patient for transfer and evaluate him for further management. 2209: There is no transportation available for the patient. The patient will be admitted here instead. I discussed the patient's case with Dr. Ford- [facility], Hospitalist. She will evaluate the patient for further management. MEDICAL DECISION MAKING: Prior records/ancillary studies reviewed. Triage Nursing notes reviewed and agree them. Additional history obtained from the family. The patient's history was concerning for chest pain. Differential diagnosis: Etiologies such as cardiac ischemia, aortic dissection, pulmonary embolism, pneumonia, pneumothorax, musculoskeletal, infections, pericarditis, myocarditis, esophageal rupture, gastrointestinal, as well as others were entertained. Physical examination: As above. ER treatment provided: The patient took aspirin at home. Nitropaste IV heparin drip On reassessment the patient felt well. Diagnostic interpretation by me: The electrocardiogram was negative for pathologic change. The labs revealed an unremarkable CBC and chemistry panel. The patient's troponin is elevated. Imaging studies: Chest x-ray unremarkable. Consultation: Consultation was placed with cardiology. I discussed the case. Given his complex cardiac history mount any cardiology recommended a consult and transfer to [facility] cardiology. I discussed the case with Dr. Barnes. The patient was accepted in transfer. Unfortunately due to other critical care transport's underway that was not transport available this evening for the patient. He was pain-free and resting comfortably. I did notify him that there was a delay in transfer and we should have him stay overnight here under the care of internal medicine. The patient felt comfortable with the plan. A consultation was placed with the hospitalist, Dr. Ford. The case was discussed and diagnostics were reviewed. The patient was evaluated in the ER for further treatment. IMPRESSION: Non-ST elevation OK Left-sided chest pain Elevated troponin History of coronary artery disease PLAN: Admitted pending transfer CRITICAL CARE: I have personally spent greater than 30 minutes of critical care time in the direct management of this patient. This includes bedside care, interpretation of diagnostic studies, and testing, discussion with consultants, patient, and family members, and other required patient management activities. This 30 minutes is in excess of all separately billable procedures. The scribe's documentation has been prepared under my direction and personally reviewed by me in its entirety. I confirm that the note above accurately reflects all work, treatment, procedures, and medical decision making performed by me. Impression & Plan Non-ST elevation (NSTEMI) myocardial infarction, Elevated troponin, Chest pain Past Med/Surg History Family History Mother Hypertension Breast cancer Father Cardiac disorder Myocardial infarction Social History Preferred Language: Serbian Communication Ability: Effective Visual Impairment: No Limitations Microstrategy Architect Required: No Beliefs That Will Affect Care: None marital status: Current Living Situation: Spouse Feels Safe at Home: Yes Smoking Status: Former smoker Tobacco Type: cigarettes ; Cigarettes Per Day: QUIT IN THE 1980S. Smoked 1ppd x 20 years. ; Second Hand Exposure: No ; Hx Alcohol Use: Yes Alcohol type: hard liquor Hx Substance Use: No Results & Data Vital Signs Vital Signs - 24 hr 05/21/19 13:41 05/21/19 14:34 05/21/19 16:24 Temperature 36.9 C Temperature Source Oral Sepsis Recent Fever Within 48 Hours No Sepsis New/Unexplained Change in Mental Status No Sepsis Action Taken by Nursing No Action Required Pulse Rate 64 Pulse Rate [Right Finger] 68 Pulse Rhythm [Right Finger] Pulse Strength [Right Finger] Respiratory Rate 16 Respiratory Effort / Characteristics Respiratory Depth Normal Respiratory Pattern Blood Pressure 121/77 Blood Pressure [Right Arm] 132/79 Blood Pressure Mean 91 Blood Pressure Mean [Right Arm] 96 Blood Pressure Position [Right Arm] Lying Pulse Oximetry 97 97 Oxygen Delivery Method Room Air Room Air 05/21/19 19:21 05/21/19 21:20 Temperature Temperature Source Sepsis Recent Fever Within 48 Hours Sepsis New/Unexplained Change in Mental Status Sepsis Action Taken by Nursing Pulse Rate Pulse Rate [Right Finger] 70 82 Pulse Rhythm [Right Finger] Regular Pulse Strength [Right Finger] Normal Respiratory Rate 20 20 Respiratory Effort / Characteristics Non-Labored Spontaneous Non-Labored Spontaneous Respiratory Depth Normal Normal Respiratory Pattern Regular Regular Blood Pressure Blood Pressure [Right Arm] 132/79 135/93 Blood Pressure Mean Blood Pressure Mean [Right Arm] 96 107 Blood Pressure Position [Right Arm] Lying Lying Pulse Oximetry 97 95 Oxygen Delivery Method Room Air Room Air Home Medications Current Medication List: was personally reviewed by me Laboratory Data Attestation: I reviewed the patient's lab results. Result diagrams: 05/21/19 14:00 05/21/19 14:00 Lab Results 05/21/19 05/21/19 05/21/19 Range/Units 14:00 14:00 16:20 WBC 4.78 L (4.8-10.8) K/uL RBC 4.26 L (4.7-6.1) M/uL Hgb 13.3 L (14.0-18.0) g/dL Hct 38.5 L (42-52) % MCV 90.4 (80-100) fL MCH 31.2 (25-34) pg MCHC 34.5 (32-36) g/dL RDW Std Deviation 43.2 (36.4-46.3) fL RDW Coeff of Ricky 13.2 (11.5-14.5) % Plt Count 123 L (130-400) K/uL MPV 10.2 (7.4-10.4) fL Immature Gran % (Auto) 0.6 % Neut % (Auto) 69.1 % Lymph % (Auto) 16.1 % Andrew % (Auto) 11.5 % Eos % (Auto) 2.5 % Baso % (Auto) 0.2 % Immature Gran # (Auto) 0.03 H (0.00-0.02) K/uL Neut # (Auto) 3.30 (1.4-6.5) K/uL Lymph # (Auto) 0.77 L (1.2-3.4) K/uL Andrew # (Auto) 0.55 (0.11-0.59) K/uL Eos # (Auto) 0.12 (0-0.5) K/uL Baso # (Auto) 0.01 (0-0.2) K/uL PT 10.9 (9.0-12.0) Seconds INR 1.1 (0.9-1.1) APTT 25.9 (21.0-31.0) Seconds PTT Ratio 1.0 Sodium 138 (136-145) mmol/L Potassium 3.5 (3.5-5.1) mmol/L Chloride 101 (98-107) mmol/L Carbon Dioxide 27 (21-32) mmol/L Anion Gap 10.0 (3-11) BUN 17 (7-18) mg/dl Creatinine 1.18 (0.6-1.4) mg/dl Est Cr Clr Drug Dosing 59.2 ml/min Est GFR ( Amer) 68.6 Est GFR (Non-Af Amer) 59.2 BUN/Creatinine Ratio 14.3 (10-20) Glucose 113 H (70-99) mg/dl Calcium 9.0 (8.5-10.1) mg/dl Total Bilirubin 0.7 (0.2-1) mg/dl AST 16 (15-37) U/L ALT 20 (12-78) U/L Alkaline Phosphatase 63 (45-117) U/L Troponin I 0.055 H* (0-0.045) ng/ml Total Protein 7.8 (6.4-8.2) gm/dl Albumin 3.8 (3.4-5.0) gm/dl Globulin 4.0 (2.5-4.0) gm/dl Albumin/Globulin Ratio 1.0 (0.9-2) Lipase 105 (73-393) U/L Administered Medications Heparin Sodium/Dextrose (Heparin Sodium/Dextrose) 25,000 units in 500 mls @ 30 mls/hr IV .[id number] [facility] [place]; Protocol Stop: 06/20/19 16:14 Last Admin: 05/21/19 17:16 Dose: 1,500 units/hr, 30 mls/hr Documented by: [id number] Cosigned by: [id number] Discontinued Medications Heparin Sodium (Porcine) (Heparin Iv Bolus) 7,000 units IV NOW STA Stop: 05/21/19 16:52 Last Admin: 05/21/19 17:13 Dose: 7,000 units Documented by: [id number] Cosigned by: [id number] Heparin Sodium/Dextrose () 1 ea N/A NOW STA; Protocol Stop: 05/21/19 16:08 Last Admin: 05/21/19 17:20 Dose: Not Given Documented by: [id number] Nitroglycerin (Nitro-Bid 2%) 0.5 inch EXT NOW STA Stop: 05/21/19 16:08 Last Admin: 05/21/19 16:22 Dose: 0.5 inch Documented by: [id number] Imaging Data Radiologist's Impression: Radiology results as stated below per my review and the radiologist's interpretation: XR chest 1V portable HISTORY: 79 years-old Male Chest Pain acute atypical chest pain COMPARISON: Chest radiograph 04/25/2019 TECHNIQUE: Portable AP view of the chest FINDINGS: Cardiomegaly with prior median sternotomy. Stable positioning of left subclavian pacer. Prominence of the thoracic aortic arch with calcified plaque. Remote healed right-sided rib fractures. No pneumothorax, pleural effusion, focal airspace consolidation or overt pulmonary edema. Bones of the chest appear grossly intact. IMPRESSION: Cardiomegaly without acute process. The above report was generated using voice recognition software. It may contain grammatical, syntax or spelling errors. Electronically signed by: Armando Willard M.D. 05/21/2019 3:00 PM ECG Data Attestation: I personally reviewed and interpreted this ECG as follows: Indication: chest pain Rate (beats per minute): 78 Rhythm: other (paced rhythm) Findings: + PVC; no ST elevation Blood Pressure Blood Pressure Findings: Elevated blood pressure Blood Pressure Disposition: further management by hospitalist Discharge Plan Visit Data Chief Complaint: Chest Pain ED Provider: Molina Olson Discharge Problem: Non-ST elevation (NSTEMI) myocardial infarction, Elevated troponin, Chest pain Patient Disposition: Transfer Acute Care Hospital Forms Stand Alone Forms: Call Back Authorization, My [facility] Prescriptions Prescriptions: No Action metoprolol tartrate 50 mg tablet 75 mg PO BID Qty: 270 RF: 1 ranolazine 1,000 mg tablet extended release 12 hr 1,000 mg PO BID Qty: 180 RF: 1 isosorbide mononitrate 60 mg tablet extended release 24 hr 60 mg PO QAM Qty: 30 RF: 0 trospium 20 mg tablet 20 mg PO BID Qty: 60 RF: 0 triamcinolone acetonide 0.1 % cream 1 appln TOP TID Qty: 15 RF: 0 esomeprazole magnesium [Nexium] 40 mg Capsule,Delayed Release(Dr/Ec) 40 mg PO BID Qty: 60 RF: 1 Golytely 227.1-21.5-6.36 gram powder in packet 30 ml PO DAILY PRN (Reason: constipation) 30 Days Qty: 1 RF: 0 multivitamin [Multiple Vitamins] Tablet 1 tab PO QAM RF: 0 citalopram 10 mg Tablet 10 mg PO QAM RF: 0 aspirin [Aspir-81] 81 mg Tablet,Delayed Release (Dr/Ec) 81 mg PO QAM RF: 0 losartan 25 mg Tablet 25 mg PO QAM RF: 0 hydrochlorothiazide 25 mg Tablet 25 mg PO QAM RF: 0 ezetimibe-simvastatin [Vytorin 10-40] 10-40 mg Tablet 1 tab PO HS RF: 0 cholecalciferol (vitamin D3) [Vitamin D3] 2,000 unit Capsule 2,000 unit PO QAM RF: 0 Referrals Referrals: Trae Garza [Primary Care Provider] - The scribe's documentation has been prepared under my direction and personally reviewed by me in its entirety. I confirm that the note above accurately reflects all work, treatment, procedures, and medical decision making performed by me.
--- NOTE | 2019-05-21 23:07 | History & Physical Report ---
Date of Service May 21, 2019 Assessment & Plan (1) Non-ST elevation (NSTEMI) myocardial infarction: Patient presenting after episode of left sided chest pain. No EKG evidence of ischemia, troponin x 1 positive at 0.055. Presently chest pain free. Patient with history of CAD s/p 3V CABG performed at [facility] after complications from a PCI attempt at [place]. Patient on optimal medical therapy for CAD. -Admit to PCU with continuous cardiac monitoring -Trend troponin x 3 sets -EKG as needed for CP -Continue heparin gtt for NSTEMI -Continue ASA 81mg po daily -Continue Ezetimibe-Simvastatin at home dose -Continue Metoprolol 75mg po BID -Continue Imdur 60mg po qAM -Continue Ranolazine ER 1000mg po BID -Patient to be transferred to [facility] for cardiac catheterization. He has been accepted by Dr. Barnes and has a bed assigned. Suspect delay in transport therefore will admit patient to our PCU for monitoring and continued therapy. Patient presently stable, CP free, no evidence of STEMI. Cardiology is aware of the patient. Present on Admission?: Yes (2) CAD (coronary artery disease): Patient with CAD s/p stent to his RCA placed by Dr. Arechiga in [place] in 2009, s/p 3V CABG performed by Dr. Mullins at [facility] in 2012 (ROBERTO to LAD, SVG to PLB, SVG to ramus), s/p dual chamber pacemaker placement for advanced heart block. NSTEMI as above -Continue ASA, Vytorin, Metoprolol, Losartan -Continue Isosorbide mononitrate and Ranolazine -Telemetry monitoring -Serial troponin Present on Admission?: Yes (3) Essential hypertension: Blood pressure acceptable at present, 135/93 -Continue HCTZ, Metoprolol, Losartan -Continue to monitor Present on Admission?: Yes (4) GERD (gastroesophageal reflux disease): Chronic. Stable -Continue nexium 40mg po BID Present on Admission?: Yes (5) EILEEN on CPAP: Chronic. Stable -CPAP qHS Present on Admission?: Yes (6) Incontinence: Chronic. Stable -Continue Tropsium 20mg po BID Present on Admission?: Yes (7) Depression: Chronic. Stable -Continue Citalopram Present on Admission?: Yes (8) H/O atrial flutter: Patient with brief asymptomatic atrial flutter on device interrogation in the past. Also wtih SVT and ventricular ectopy noted on Holter monitor - symptoms controlled with Metoprolol. Presently in paced rhythm F/E/N - Heplock. Monitor electrolytes and replete as needed. Check Mg and PO4 x 1, NPO for now. Continue Go-Lytely as needed for constipation Ppx - Heparin gtt as above. Continue home Nexium Code - Full per discussion with patient Disposition - admit to PCU for NSTEMI. Awaiting transfer to [facility] - accepted by Dr. Barnes Present on Admission?: Yes History of Present Illness Chief Complaint: chest pain Primary Care Provider: Trae Sesay is a pleasant 79yo C male with history of CAD s/p 3V CABG in December 2012 at [facility] with Dr. 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 Patient was sitting in a chair this afternoon around 12:00 when he developed sudden onset of left sided chest discomfort, 4/10 in severity, radiation to the neck. He denies diaphoresis, nausea/vomiting, dizziness/presyncope or SOB. Patient's admi nistered 4 baby aspirin and called EMS and he was transported to [facility]. Upon arrival he was found to be afebrile and hemodynamically stable. EKG with paced rhythm, no evidence of STEMI. Troponin positive at 0.055. Presently on heparin gtt with Nitro paste on right anterior chest wall. He is chest pain free with no additional complaints. ER Course: heparin 7000 unit bolus and drip per weight based protocol, Nitro paste 0.5 inch Prior cardiovascular studies: Lexiscan SPECT 03/2019: Small, mild reversible anterolateral perfusion defect, inferior infarct. LVEF 34% with inferior akinesis. No changes from 04/02/2018 Echo 06/2018: mild LVH, EF 50-55%. Hypokinesis of inferior base. Mild AI Cardiac catheterization 03/2018: 80% mid LAD, 60% diffuse circumflex, ramus 90% proximal, RCA 100% proximal. Patent ROBERTO to LAD, SVG to ramus, SVG to PDA. 48-hour Holter 03/2018: Frequent ventricular ectopy, ventricular runs and atrial ectopy --Nuclear Cardiopulmonary Stress Test - 05/07/19. Patient achieved 52% of maximal age-predicted heart rate Allergies Allergy/AdvReac Type Severity Reaction Status Date / Time oxycodone [From OxyContin] Allergy Unknown Hallucinati Verified 05/21/19 14:54 ng Sulfa (Sulfonamide Allergy Unknown rash Verified 05/21/19 14:54 Antibiotics) lisinopril AdvReac Mild cough Verified 05/21/19 14:54 ciprofloxacin [From Cipro] AdvReac Unknown see notes Verified 05/21/19 14:54 metoclopramide AdvReac Unknown Depression Verified 05/21/19 14:54 Home Medications Home Medications Medication Instructions Recorded Confirmed Type aspirin [Aspir-81] 81 mg PO QAM 06/19/18 05/21/19 History cholecalciferol (vitamin D3) 2,000 unit PO QAM 06/19/18 05/21/19 History [Vitamin D3] citalopram 10 mg PO QAM 06/19/18 05/21/19 History ezetimibe-simvastatin [Vytorin 1 tab PO HS 06/19/18 05/21/19 History 10-40] hydrochlorothiazide 25 mg PO QAM 06/19/18 05/21/19 History losartan 25 mg PO QAM 06/19/18 05/21/19 History multivitamin [Multiple Vitamins] 1 tab PO QAM 06/19/18 05/21/19 History isosorbide mononitrate ER 60 mg 60 mg PO QAM #30 tab 03/16/19 05/21/19 History tablet,extended release 24 hr trospium 20 mg tablet 20 mg PO BID #60 tab 03/16/19 05/21/19 History esomeprazole magnesium [Nexium] 40 mg PO BID #60 cap 04/20/19 05/21/19 Rx triamcinolone acetonide 1 appln TOP TID #15 gm 04/20/19 05/21/19 Rx peg 3350-electrolytes [Golytely] 30 ml PO DAILY PRN 30 Days #1 ea 04/26/19 05/21/19 Rx metoprolol tartrate 50 mg tablet 75 mg PO BID #270 tab 05/19/19 05/21/19 Rx ranolazine ER 1,000 mg 1,000 mg PO BID #180 tab 05/20/19 05/21/19 Rx tablet,extended release,12 hr Past Med/Surg History Family History Mother Hypertension Breast cancer Father Cardiac disorder Myocardial infarction Social History Preferred Language: Ethiopian Communication Ability: Effective Visual Impairment: No Limitations Occupational Health Coordinator Required: No Beliefs That Will Affect Care: None marital status: Current Living Situation: Spouse Feels Safe at Home: Yes Smoking Status: Former smoker Tobacco Type: cigarettes ; Cigarettes Per Day: QUIT IN THE . Smoked 1ppd x 20 years. ; Second Hand Exposure: No ; Hx Alcohol Use: Yes Alcohol type: hard liquor Hx Substance Use: No Review of Systems Review of Systems: All systems reviewed & are unremarkable except as noted in HPI & below Presently with no chest pain Physical Exam Physical Exam: General: patient resting comfortably, NAD, non-toxic in appearance, AA&O x 4 Skin: warm, dry, intact, no rashes or lesions HEENT: NC/AT, PERRL, EOMI, anicteric sclera, conjunctiva without injection, external ear normal to inspection and nontender, nares patent, moist mucus membranes, dentition intact, no oropharyngeal lesions, neck supple, trachea midline, no LAD, no thyromegaly, no JVD Heart: +S1/S2, regular, no m/r/g, pacemaker present L chest wall - nontender to palpation Lungs: equal air entry bilaterally, no rales/rhonchi/wheezes Abd: +BS, soft, NT/ND, no masses/organomegaly/ascites Ext: warm, 2+ pulses in UE/LE bilaterally, no clubbing/cyanosis or edema Neuro: nonfocal, patient AA&O x 4, speech intact, no facial droop, moving all extremities on command with equal strength 5/5 Results & Data Vital Signs (Past 12 Hours) Vital Signs Temp Pulse Pulse Resp BP BP Pulse Ox 05/21/19 21:20 82 20 135/93 95 05/21/19 19:21 70 20 132/79 97 05/21/19 16:24 68 132/79 05/21/19 14:34 97 05/21/19 13:41 36.9 C 64 16 121/77 97 Laboratory Results Lab Results 05/21/19 05/21/19 05/21/19 Range/Units 14:00 14:00 16:20 WBC 4.78 L (4.8-10.8) K/uL RBC 4.26 L (4.7-6.1) M/uL Hgb 13.3 L (14.0-18.0) g/dL Hct 38.5 L (42-52) % MCV 90.4 (80-100) fL MCH 31.2 (25-34) pg MCHC 34.5 (32-36) g/dL RDW Std Deviation 43.2 (36.4-46.3) fL RDW Coeff of Ricky 13.2 (11.5-14.5) % Plt Count 123 L (130-400) K/uL MPV 10.2 (7.4-10.4) fL Immature Gran % (Auto) 0.6 % Neut % (Auto) 69.1 % Lymph % (Auto) 16.1 % [place] % (Auto) 11.5 % Eos % (Auto) 2.5 % Baso % (Auto) 0.2 % Immature Gran # (Auto) 0.03 H (0.00-0.02) K/uL Neut # (Auto) 3.30 (1.4-6.5) K/uL Lymph # (Auto) 0.77 L (1.2-3.4) K/uL [place] # (Auto) 0.55 (0.11-0.59) K/uL Eos # (Auto) 0.12 (0-0.5) K/uL Baso # (Auto) 0.01 (0-0.2) K/uL PT 10.9 (9.0-12.0) Seconds INR 1.1 (0.9-1.1) APTT 25.9 (21.0-31.0) Seconds PTT Ratio 1.0 Sodium 138 (136-145) mmol/L Potassium 3.5 (3.5-5.1) mmol/L Chloride 101 (98-107) mmol/L Carbon Dioxide 27 (21-32) mmol/L Anion Gap 10.0 (3-11) BUN 17 (7-18) mg/dl Creatinine 1.18 (0.6-1.4) mg/dl Est Cr Clr Drug Dosing 59.2 ml/min Est GFR ( Amer) 68.6 Est GFR (Non-Af Amer) 59.2 BUN/Creatinine Ratio 14.3 (10-20) Glucose 113 H (70-99) mg/dl Calcium 9.0 (8.5-10.1) mg/dl Total Bilirubin 0.7 (0.2-1) mg/dl AST 16 (15-37) U/L ALT 20 (12-78) U/L Alkaline Phosphatase 63 (45-117) U/L Troponin I 0.055 H* (0-0.045) ng/ml Total Protein 7.8 (6.4-8.2) gm/dl Albumin 3.8 (3.4-5.0) gm/dl Globulin 4.0 (2.5-4.0) gm/dl Albumin/Globulin Ratio 1.0 (0.9-2) Lipase 105 (73-393) U/L Diagnostic Findings XR chest 1V portable HISTORY: 79 years-old Male Chest Pain acute atypical chest pain COMPARISON: Chest radiograph 04/25/2019 TECHNIQUE: Portable AP view of the chest FINDINGS: Cardiomegaly with prior median sternotomy. Stable positioning of left subclavian pacer. Prominence of the thoracic aortic arch with calcified plaque. Remote healed right-sided rib fractures. No pneumothorax, pleural effusion, focal airspace consolidation or overt pulmonary edema. Bones of the chest appear grossly intact. IMPRESSION: Cardiomegaly without acute process. The above report was generated using voice recognition software. It may contain grammatical, syntax or spelling errors. Electronically signed by: Armando Willard M.D. 05/21/2019 3:00 PM Dictated: 05/21/19 1459 Transcribed: 05/21/19 1459 ECG Additional Comments: The study shows AV dual paced rhythm, no evidence of STEMI by discordance Code Status & VTE Plan Code Status FULL VTE Prophylaxis Plan VTE Prophylaxis will be ordered: Yes PG Care Time/CCT Total # of Minutes Spent Total Time Spent with Patient: Total time spent is greater than 50% in coordination of care (as documented) at patient's floor/unit and/or counseling patient: (1) CAD (coronary artery disease) Coronary Disease-Associated Artery/Lesion type: shawnee artery [place] vs. transplanted heart: shawnee heart Associated angina: with unspecified angina Qualified Code(s): I25.119 - Atherosclerotic heart disease of shawnee coronary artery with unspecified angina pectoris (2) GERD (gastroesophageal reflux disease) Esophagitis presence: esophagitis presence not specified Qualified Code(s): K21.9 - Gastro-esophageal reflux disease without esophagitis (3) Incontinence Incontinence type: urinary Urinary Incontinence type: unspecified incontinence Qualified Code(s): R32 - Unspecified urinary incontinence (4) Depression Depression Type: unspecified Qualified Code(s): F32.9 - Major depressive disorder, single episode, unspecified
[2019-05-21] MEDS ORDERED: ONDANSETRON INJ 2 MG/ML 2 ML VIAL IV PRN (23:26)
[2019-05-21] MEDS ORDERED: MoRPHine SULFATE 2 MG/ML CARP IV PRN (23:26)
[2019-05-21] MEDS ORDERED: Heparin IV Standard *NO* Bolus IV ONE (23:48)
[2019-05-22] MEDS: NITROGLYCERIN 2% OINTMENT 30GM TUBE EXT SCH ×2 (00:21→05:51)
[2019-05-22 02:13] LABS: Partial Thromboplastin Ratio 2.9
[2019-05-22 02:17] LABS: Partial Thromboplastin Time 78.5 Seconds (21.0-31.0)
[2019-05-22 07:49] VITALS: BP 105/68; PULSE 62; TEMP 98.4; O2SAT 94
[2019-05-22] MEDS: HEPARIN SODIUM/DEXTROSE 25,000 UNITS/500 ML BAG IV SCH (08:03)
[2019-05-22] MEDS ORDERED: TRIAMCINOLONE ACET 0.1% CR 15 GM TUBE TOP SCH (09:00)
[2019-05-22] MEDS ORDERED: METOPROLOL TARTRATE 50 MG TAB PO SCH (09:00)
[2019-05-22] MEDS ORDERED: RANOLAZINE 500 MG ER TAB PO SCH (09:00)
[2019-05-22] MEDS ORDERED: ISOSORBIDE MONO EXTENDED REL 60 MG TABCR PO SCH (09:00)
[2019-05-22] MEDS ORDERED: LOSARTAN POTASSIUM 25 MG TAB PO SCH (09:00)
[2019-05-22] MEDS ORDERED: PANTOprazole 40 MG TAB PO SCH (09:00)
[2019-05-22] MEDS ORDERED: hydroCHLOROthiazide 25 MG TAB PO SCH (09:00)
[2019-05-22] MEDS ORDERED: ASPIRIN 81 MG ECTAB PO SCH (09:00)
[2019-05-22] MEDS ORDERED: CITALOPRAM 20 MG TAB PO SCH (09:00)
[2019-05-22] MEDS ORDERED: POLYETHYLENE (MIRALAX) 17 GM PACK PO PRN (09:00)
--- NOTE | 2019-05-22 18:34 | Discharge Summary ---
Date of Service May 22, 2019 Admission HPI Per Admitting Provider Elbert Sesay is a pleasant 79yo C male with history of CAD s/p 3V CABG in December 2012 at [facility] with Dr. 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 Patient was sitting in a chair this afternoon around 12:00 when he developed sudden onset of left sided chest discomfort, 4/10 in severity, radiation to the neck. He denies diaphoresis, nausea/vomiting, dizziness/presyncope or SOB. Patient's administered 4 baby aspirin and called EMS and he was transported to [facility]. Upon arrival he was found to be afebrile and hemodynamically stable. EKG with paced rhythm, no evidence of STEMI. Troponin positive at 0.055. Presently on heparin gtt with Nitro paste on right anterior chest wall. He is chest pain free with no additional complaints. ER Course: heparin 7000 unit bolus and drip per weight based protocol, Nitro paste 0.5 inch Prior cardiovascular studies: Lexiscan SPECT 03/2019: Small, mild reversible anterolateral perfusion defect, inferior infarct. LVEF 34% with inferior akinesis. No changes from 04/02/2018 Echo 06/2018: mild LVH, EF 50-55%. Hypokinesis of inferior base. Mild AI Cardiac catheterization 03/2018: 80% mid LAD, 60% diffuse circumflex, ramus 90% proximal, RCA 100% proximal. Patent ROBERTO to LAD, SVG to ramus, SVG to PDA. 48-hour Holter 03/2018: Frequent ventricular ectopy, ventricular runs and atrial ectopy --Nuclear Cardiopulmonary Stress Test - 05/07/19. Patient achieved 52% of maximal age-predicted heart rate Admission Exam Per Admitting Provider General: patient resting comfortably, NAD, non-toxic in appearance, AA&O x 4 Skin: warm, dry, intact, no rashes or lesions HEENT: NC/AT, PERRL, EOMI, anicteric sclera, conjunctiva without injection, external ear normal to inspection and nontender, nares patent, moist mucus membranes, dentition intact, no oropharyngeal lesions, neck supple, trachea midline, no LAD, no thyromegaly, no JVD Heart: +S1/S2, regular, no m/r/g, pacemaker present L chest wall - nontender to palpation Lungs: equal air entry bilaterally, no rales/rhonchi/wheezes Abd: +BS, soft, NT/ND, no masses/organomegaly/ascites Ext: warm, 2+ pulses in UE/LE bilaterally, no clubbing/cyanosis or edema Neuro: nonfocal, patient AA&O x 4, speech intact, no facial droop, moving all extremities on command with equal strength 5/5 Principal Diagnosis Chest pain concern for acute coronary event Discharge Exam Not completed due to patient leaving before being evaluated Discharge Data Allergies Allergy/AdvReac Type Severity Reaction Status Date / Time oxycodone [From OxyContin] Allergy Unknown Hallucinati Verified 05/21/19 14:54 ng Sulfa (Sulfonamide Allergy Unknown rash Verified 05/21/19 14:54 Antibiotics) lisinopril AdvReac Mild cough Verified 05/21/19 14:54 ciprofloxacin [From Cipro] AdvReac Unknown see notes Verified 05/21/19 14:54 metoclopramide AdvReac Unknown Depression Verified 05/21/19 14:54 Consultations 05/21/19 22:10 ED Decision to Admit Stat 05/21/19 23:26 Consult Cardiology Routine Hospital Course (1) Non-ST elevation (NSTEMI) myocardial infarction: Non-ST elevation (NSTEMI) myocardial infarction: Episode of left sided chest pain resolved s/p nitro paste. No EKG evidence of ischemia, troponin uptrended to 0.540. Patient was placed on heparin drip. Continued home ASA, Ezetimibe-Simvastatin, Metoprolol, Imdur, Ranolazine ER. Transferred to [facility] for cardiac catheterization. Cardiology was made aware of patient. CAD (coronary artery disease): S/p stent to his RCA placed by Dr. Arechiga in [place] in 2009, s/p 3V CABG performed by Dr. Mullins at [facility] in 2012 (ROBERTO to LAD, SVG to PLB, SVG to ramus), s/p dual chamber pacemaker placement for advanced heart block. Medications continued as above. Essential hypertension: Continued HCTZ, Metoprolol, Losartan GERD -Continued nexium EILEEN on CPAP: -CPAP qHS Incontinence: -Continued Tropsium Depression: -Continued Citalopram H/O atrial flutter: Patient with brief asymptomatic atrial flutter on device interrogation in the past. Also wtih SVT and ventricular ectopy noted on Holter monitor - symptoms controlled with Metoprolol. Code - Full (2) COPD (chronic obstructive pulmonary disease): (3) S/P CABG (coronary artery bypass graft): (4) S/P placement of cardiac pacemaker: (5) GERD (gastroesophageal reflux disease): (6) EILEEN on CPAP: (7) Depression: (8) H/O three vessel coronary artery bypass: (9) Essential hypertension: (10) Thrombocytopenia: (11) Elevated troponin: (12) H/O atrial flutter: (13) CAD (coronary artery disease): Total Time Total Time Spent Total Time Spent (In Minutes): 0 Discharge Plan Discharge Items Patient Disposition: Transfer Acute Care Hospital Reason For Visit: NSTEMI Discharge Diagnosis: Chest pain Activity: Resume your previous activity Non-emergency contact: Primary Care Provider Call non-emergency contact if: your pain is worsening Follow-up/Referrals: Trae Garza [Primary Care Provider] - Diet: Heart Healthy Addtl Attending Provider Instructions: Transferred to [facility] for cardiac cath. Presented with chest pain. Hx of severe CAD concern for acute coronary event Pending Studies at Discharge: No Stand-Alone Forms: Call Back Authorization, [facility] Skilled Items Patient informed of condition?: Yes DNR: No Discharge Level of Care: Other Communicable Disease: No Discharge Prognosis: Stable Lines: Peripheral IV Urinary Catheter: No Medications and DC Order Prescriptions: Continued metoprolol tartrate 50 mg tablet 75 mg PO BID Qty: 270 RF: 1 ranolazine 1,000 mg tablet extended release 12 hr 1,000 mg PO BID Qty: 180 RF: 1 isosorbide mononitrate 60 mg tablet extended release 24 hr 60 mg PO QAM Qty: 30 RF: 0 trospium 20 mg tablet 20 mg PO BID Qty: 60 RF: 0 triamcinolone acetonide 0.1 % cream 1 appln TOP TID Qty: 15 RF: 0 esomeprazole magnesium [Nexium] 40 mg Capsule,Delayed Release(Dr/Ec) 40 mg PO BID Qty: 60 RF: 1 Golytely 227.1-21.5-6.36 gram powder in packet 30 ml PO DAILY PRN (Reason: constipation) 30 Days Qty: 1 RF: 0 multivitamin [Multiple Vitamins] Tablet 1 tab PO QAM RF: 0 citalopram 10 mg Tablet 10 mg PO QAM RF: 0 aspirin [Aspir-81] 81 mg Tablet,Delayed Release (Dr/Ec) 81 mg PO QAM RF: 0 losartan 25 mg Tablet 25 mg PO QAM RF: 0 hydrochlorothiazide 25 mg Tablet 25 mg PO QAM RF: 0 ezetimibe-simvastatin [Vytorin 10-40] 10-40 mg Tablet 1 tab PO HS RF: 0 cholecalciferol (vitamin D3) [Vitamin D3] 2,000 unit Capsule 2,000 unit PO QAM RF: 0 Discharge Orders: Discharge Order (Routine); Ordered 05/22/19 Ordered By: Gita Solomon Admission Data Admit Date/Time: 05/21/19 22:36 Attending Provider: Josie Gudino Admit Provider: Magalie Ford Primary Care Provider: Trae Garza Other Providers: Magalie Ford ; Scott Patterson Other Interventions: Discharge Summary Assessment (RN) Last Done: 05/22/19 09:29 DC Date/Time DO NOT enter until pt leaves facility: 05/22/19 08:20 Supervising Physician Co-Signing Physician Notes Not seen by me before transfer Resident Activity Tracking Resident Involvement: Resident Care Provided Care Provided: Adult Hospital Medicine
[2019-05-22] MEDS ORDERED: EZETIMIBE/SIMVASTATIN 10/40MG 1 TAB TAB PO SCH (21:00)
== END 2019-05-22 08:20 | disposition short-term general hospital (02) | DRG 281 ==
LOC: ED 13:51 → SUATTDRO 22:36 → 2S 22:36

== ENCOUNTER 2019-10-24 21:00 | Observation (INO) ==
[2019-10-24 22:11] LABS: Basophils # (auto) 0.02 K/uL (0-0.2); Basophils % (auto) 0.2 %; Eosinophils # (auto) 0.11 K/uL (0-0.5); Eosinophils % (auto) 1.2 %; Hematocrit (blood only) 38.4 % (42-52); Hemoglobin 12.7 g/dL (14.0-18.0); Immature Granulocytes # (auto) 0.02 K/uL (0.00-0.02); Immature Granulocytes % (auto) 0.2 %; Lymphocytes # (auto) 0.38 K/uL (1.2-3.4); Lymphocytes % (auto) 4.1 %; Mean Corpuscular Hemoglobin 30.5 pg (25-34); Mean Corpuscular Hgb Conc 33.1 g/dL (32-36); Mean Corpuscular Volume 92.1 fL (80-100); Mean Platelet Volume 11.3 fL (7.4-10.4); Monocytes # (auto) 0.84 K/uL (0.11-0.59); Monocytes % (auto) 9.1 %; Neutrophils # (auto) 7.86 K/uL (1.4-6.5); Neutrophils % (auto) 85.2 %; Platelet Count 101 K/uL (130-400); RDW Coefficient of Variation 13.7 % (11.5-14.5); RDW Standard Deviation 46.2 fL (36.4-46.3); Red Blood Count 4.17 M/uL (4.7-6.1); White Blood Count 9.23 K/uL (4.8-10.8)
[2019-10-24 22:22] LABS: Influenza A virus by PCR Neg for Influ A (Neg); Influenza B virus by PCR Neg for Influ B (Neg)
[2019-10-24 22:24] LABS: INR 1.1 (0.9-1.1); Partial Thromboplastin Ratio 1.1; Prothrombin Time 11.4 Seconds (9.0-12.0)
[2019-10-24 22:30] LABS: Alanine Aminotransferase 15 U/L (12-78); Albumin Level 3.9 gm/dl (3.4-5.0); Aspartate Aminotransferase 12 U/L (15-37); BUN Creatinine Ratio 17.6 (10-20); Blood Urea Nitrogen 18 mg/dl (7-18); Calcium 9.4 mg/dl (8.5-10.1); Carbon Dioxide 27 mmol/L (21-32); Chloride 100 mmol/L (98-107); Creatinine Clr Calc Pharmacy 76.5 ml/min; Est GFR (African American) 82.8; Est GFR (Non-African American) 71.4; Glucose 114 mg/dl (70-99); Magnesium 1.7 mg/dl (1.8-2.4); Potassium 3.5 mmol/L (3.5-5.1); Sodium 135 mmol/L (136-145)
[2019-10-24 22:35] LABS: Alkaline Phosphatase 60 U/L (45-117); Bilirubin,Total 1.4 mg/dl (0.2-1); Globulin 3.9 gm/dl (2.5-4.0); Total Protein 7.8 gm/dl (6.4-8.2); Troponin I < 0.015 ng/ml (0-0.045)
--- NOTE | 2019-10-24 22:36 | XRay Report ---
XR chest 1V portable HISTORY: SEPSIS COMPARISON: Chest 11/11/2019. FINDINGS: No pneumothorax. The cardiac silhouette is mildly enlarged. This has progressed in the inte rval. Stable blunting of the costophrenic sulcus. There is mild central pulmonary vascular congestion without overt edema. No new focal lung consolidations to suggest pneumonia. Left-sided dual-chamber pacemaker. Poststernotomy changes. Old, healed right-sided rib fractures. IMPRESSION: Interval progression of the cardiomegaly and mild central pulmonary vascular congestion. ACT 112: Negative or not required by law. Electronically signed by: Sergio Allred M.D. 10/24/2019 10:35 PM
[2019-10-24 23:06] LABS: Appearance Urine Clear (Clear); Bacteria Urine Automated Negative (Negative); Bilirubin Urine Negative (Negative); Blood Urine Negative (Negative); Color Urine Dark Yellow; Glucose Urine UA Negative (Negative); Ketones Urine Trace (Negative); Leukocyte Esterase Urine 1+ (Negative); Nitrite Urine Negative (Negative); Protein Urine Trace (Negative); RBC Urine Automated 0-4 /hpf (0-4); Specific Gravity Urine 1.022 (1.000-1.030); Urobilinogen Urine Negative (Negative); pH Urine 6.5 (4.5-7.5)
[2019-10-24] MEDS ORDERED: MAGNESIUM SULFATE / D5W 1 GM/100 ML BAG IV ONE (23:08)
--- NOTE | 2019-10-25 00:17 | Emergency Department Note ---
Entered by Luciana Lopes acting as a scribe for Pablo Carvajal MD History of Present Illness General Chief complaint: Shortness of Breath/Dyspnea Stated complaint: SOB, FEVER Time Seen by Provider: 10/24/19 21:14 Source: patient History of Present Illness Onset (ago): day(s) 1 Location: chest Pain Consistency: + constant Maximum Pain Intensity: 0 Current Pain Intensity: 0 Relieved By: + none Exacerbated By: + none Associated symptoms: + denies other symptoms (denies abdominal pain and urinary symptoms), + fever/chills and + shortness of breath; no chest pain Treatments prior to arrival: none The patient is a 79 year old male who presents to the Emergency Room with complaints of shortness of breath. The patient has a history of GERD, and had a severe episode that started last night. He was up all night regurgitating fluid. The patient had a fever of 102.4 today, and vomited once today prior to arrival. The patient complains of hallucinations as well. He denies abnormal chest pain, abdominal pain, and urinary symptoms. His Ranolazine medication was recently increased for angina. Today he complains of shortness of breath. The patient has a history of triple bypass in 2012. He had a perforation of the right coronary artery, and has not had a stent placed yet. They are trying to hold off on this due to the procedure being so high risk for the patient. He also has a pa cemaker. The patient has not been on antibiotics recently. The patient also has a history of recurrent UTIs. Home Medications Home Medications Medication Instructions Recorded Confirmed Type aspirin [Aspir-81] 81 mg PO QAM 06/19/18 10/24/19 History cholecalciferol (vitamin D3) 2,000 unit PO QAM 06/19/18 10/24/19 History [Vitamin D3] citalopram 10 mg PO QAM 06/19/18 10/24/19 History ezetimibe-simvastatin [Vytorin 1 tab PO HS 06/19/18 10/24/19 History 10-40] multivitamin [Multiple Vitamins] 1 tab PO QAM 06/19/18 10/24/19 History metoprolol tartrate 50 mg tablet 75 mg PO BID #270 tab 05/19/19 10/24/19 Rx esomeprazole magnesium 40 mg 40 mg PO QPM cap 06/29/19 10/24/19 History capsule,delayed release nitroglycerin 0.4 mg sublingual 0.4 mg SL Q5M PRN #30 tab 10/13/19 10/24/19 Rx tablet furosemide [Lasix] 20 mg PO QAM 10/24/19 10/24/19 History isosorbide mononitrate 120 mg PO QAM 10/24/19 10/24/19 History Allergies Allergy/AdvReac Type Severity Reaction Status Date / Time Sulfa (Sulfonamide Allergy Mild rash Verified 10/24/19 22:14 Antibiotics) olmesartan Allergy Verified 10/24/19 22:14 metoclopramide AdvReac Intermediate Depression Verified 10/24/19 22:14 oxycodone [From OxyContin] AdvReac Intermediate Hallucinati Verified 10/24/19 22:14 ons ciprofloxacin [From Cipro] AdvReac Mild see notes Verified 10/24/19 22:14 lisinopril AdvReac Mild cough Verified 10/24/19 22:14 Past Med/Surg History Medical History A-fib incidentally noted episodic a.fib/a.flutter on pacemaker check- on beta alyssa, cardiology holding on anticoagulation in setting of hematuria CAD (coronary artery disease) S/P CABG X3 (2012), remote hx of cardiac stents x2 (7+ years ago) COPD (chronic obstructive pulmonary disease) stable Fistula colovesical fistula GERD (gastroesophageal reflux disease) controlled History of prostate cancer History of urinary incontinence Hx of cardiac pacemaker / SSS/high grade AVB; [employer] implanted 09/2017. Last pacer check: 04/2019 Hx of myocardial infarction during cardiac cath (2012)- subseuqent CABG X3 Hyperlipidemia Kyphosis Pulmonary HTN RVSP 40-50mmhg Rosacea Sleep apnea CPAP SMA stenosis asymptomatic, "incidental finding" per cardiology SNHL (sensorineural hearing loss) Urethral stricture + recurrent UTI's/reason for upcoming procedure Surgical History H/O cystoscopy History of arthroplasty of right knee History of cardiac cath remote hx cardiac stents x2 04/2019: medically managed History of robot-assisted laparoscopic radical prostatectomy 2016 Hx of bilateral cataract extraction WITH LASIK PROCEDURE Hx of colonoscopy Hx of heart bypass surgery S/P CABG X 3 (2012) Hx of tooth extraction Family History Mother Hypertension Breast cancer Father Cardiac disorder Myocardial infarction Denies family history of Clotting disorder Social History Preferred Language: Belarusian Communication Ability: Effective Visual Impairment: No Limitations Contact Center Agent Required: No Beliefs That Will Affect Care: None marital status: Current Living Situation: Spouse and Family Feels Safe at Home: Yes Smoking Status: Never smoker Tobacco Type: cigarettes ; Cigarettes Per Day: QUIT IN THE 1980S. Smoked 1ppd x 20 years. ; Second Hand Exposure: No ; Hx Alcohol Use: Yes Alcohol type: hard liquor Hx Substance Use: No Review of Systems See HPI for pertinent positives & negatives. and A total of 10 systems reviewed and were otherwise negative Physical Exam Vital Signs Vital Signs - 24 hr 10/24/19 20:49 10/24/19 21:02 10/24/19 21:19 Temperature 36.8 C Temperature Source Oral Pulse Rate 85 92 H Pulse Rate from SpO2 Sensor 86 Respiratory Rate 25 H 18 Respiratory Effort / Characteristics Non-Labored Spontaneous Non-Labored Spontaneous Respiratory Depth Normal Normal Respiratory Pattern Regular Blood Pressure 135/68 141/85 H Blood Pressure Mean 100 103 Pulse Oximetry 93 94 95 Oxygen Delivery Method Room Air Room Air Sepsis Recent Fever Within 48 Hours No Sepsis New/Unexplained Change in Mental Status No Sepsis Action Taken by Nursing No Action Required 10/24/19 21:22 10/24/19 21:29 10/24/19 21:30 Temperature Temperature Source Pulse Rate 87 84 Pulse Rate from SpO2 Sensor 87 83 Respiratory Rate 32 H 22 Respiratory Effort / Characteristics Respiratory Depth Respiratory Pattern Blood Pressure Blood Pressure Mean Pulse Oximetry 93 95 94 Oxygen Delivery Method Room Air Sepsis Recent Fever Within 48 Hours Sepsis New/Unexplained Change in Mental Status Sepsis Action Taken by Nursing 10/24/19 21:40 10/24/19 21:50 10/24/19 22:00 Temperature Temperature Source Pulse Rate 90 89 83 Pulse Rate from SpO2 Sensor Respiratory Rate 22 30 H 26 H Respiratory Effort / Characteristics Respiratory Depth Respiratory Pattern Blood Pressure Blood Pressure Mean Pulse Oximetry Oxygen Delivery Method Sepsis Recent Fever Within 48 Hours Sepsis New/Unexplained Change in Mental Status Sepsis Action Taken by Nursing 10/24/19 22:07 10/24/19 22:10 10/24/19 22:16 Temperature Temperature Source Pulse Rate 89 84 88 Pulse Rate from SpO2 Sensor 87 83 87 Respiratory Rate 27 H 34 H 18 Respiratory Effort / Characteristics Respiratory Depth Respiratory Pattern Blood Pressure 156/86 H 156/84 H Blood Pressure Mean 126 113 Pulse Oximetry 95 94 95 Oxygen Delivery Method Sepsis Recent Fever Within 48 Hours Sepsis New/Unexplained Change in Mental Status Sepsis Action Taken by Nursing 10/24/19 22:20 10/24/19 22:30 10/24/19 22:31 Temperature Temperature Source Pulse Rate 87 90 87 Pulse Rate from SpO2 Sensor 87 91 H 86 Respiratory Rate 26 H 24 21 Respiratory Effort / Characteristics Respiratory Depth Respiratory Pattern Blood Pressure 150/88 H Blood Pressure Mean 114 Pulse Oximetry 96 96 98 Oxygen Delivery Method Sepsis Recent Fever Within 48 Hours Sepsis New/Unexplained Change in Mental Status Sepsis Action Taken by Nursing 10/24/19 22:32 10/24/19 22:40 10/24/19 22:45 Temperature 36.8 C Temperature Source Pulse Rate 85 93 H Pulse Rate from SpO2 Sensor 85 104 H 92 H Respiratory Rate 27 H 20 Respiratory Effort / Characteristics Respiratory Depth Respiratory Pattern Blood Pressure 163/90 H Blood Pressure Mean 103 Pulse Oximetry 99 93 98 Oxygen Delivery Method Sepsis Recent Fever Within 48 Hours Sepsis New/Unexplained Change in Mental Status Sepsis Action Taken by Nursing 10/24/19 22:46 10/24/19 23:00 10/24/19 23:15 Temperature Temperature Source Pulse Rate 93 H 72 80 Pulse Rate from SpO2 Sensor 93 H 76 82 Respiratory Rate 24 22 22 Respiratory Effort / Characteristics Respiratory Depth Respiratory Pattern Blood Pressure 150/74 H 141/103 H Blood Pressure Mean 108 125 Pulse Oximetry 96 95 95 Oxygen Delivery Method Sepsis Recent Fever Within 48 Hours Sepsis New/Unexplained Change in Mental Status Sepsis Action Taken by Nursing 10/24/19 23:30 10/24/19 23:31 10/24/19 23:45 Temperature Temperature Source Pulse Rate 94 H 92 H 91 H Pulse Rate from SpO2 Sensor 94 H 90 92 H Respiratory Rate 24 28 H 24 Respiratory Effort / Characteristics Respiratory Depth Respiratory Pattern Blood Pressure 148/87 H 150/79 H Blood Pressure Mean 123 111 Pulse Oximetry 93 94 93 Oxygen Delivery Method Sepsis Recent Fever Within 48 Hours Sepsis New/Unexplained Change in Mental Status Sepsis Action Taken by Nursing 10/25/19 00:00 10/25/19 00:01 03/02/20 00:16 Temperature Temperature Source Pulse Rate 92 H 91 H 90 Pulse Rate from SpO2 Sensor 91 H 91 H 84 Respiratory Rate 25 H 22 22 Respiratory Effort / Characteristics Respiratory Depth Respiratory Pattern Blood Pressure 153/82 H 148/75 H Blood Pressure Mean 99 98 Pulse Oximetry 94 94 93 Oxygen Delivery Method Sepsis Recent Fever Within 48 Hours Sepsis New/Unexplained Change in Mental Status Sepsis Action Taken by Nursing 10/25/19 00:30 10/25/19 00:31 10/25/19 00:45 Temperature Temperature Source Pulse Rate 88 88 99 H Pulse Rate from SpO2 Sensor 93 H 91 H 100 H Respiratory Rate 26 H 26 H 25 H Respiratory Effort / Characteristics Respiratory Depth Respiratory Pattern Blood Pressure 151/82 H 158/98 H Blood Pressure Mean 113 107 Pulse Oximetry 94 93 94 Oxygen Delivery Method Sepsis Recent Fever Within 48 Hours Sepsis New/Unexplained Change in Mental Status Sepsis Action Taken by Nursing 10/25/19 01:00 10/25/19 01:01 10/25/19 01:15 Temperature Temperature Source Pulse Rate 98 H 96 H 105 H Pulse Rate from SpO2 Sensor 98 H 96 H 104 H Respiratory Rate 23 24 21 Respiratory Effort / Characteristics Respiratory Depth Respiratory Pattern Blood Pressure 152/85 H 164/93 H Blood Pressure Mean 101 117 Pulse Oximetry 94 95 95 Oxygen Delivery Method Sepsis Recent Fever Within 48 Hours Sepsis New/Unexplained Change in Mental Status Sepsis Action Taken by Nursing 10/25/19 01:16 10/25/19 01:30 10/25/19 01:31 Temperature Temperature Source Pulse Rate 101 H 97 H 96 H Pulse Rate from SpO2 Sensor 101 H 97 H 97 H Respiratory Rate 26 H 26 H 25 H Respiratory Effort / Characteristics Respiratory Depth Respiratory Pattern Blood Pressure 152/84 H Blood Pressure Mean 117 Pulse Oximetry 94 94 94 Oxygen Delivery Method Sepsis Recent Fever Within 48 Hours Sepsis New/Unexplained Change in Mental Status Sepsis Action Taken by Nursing General: Non-ill appearing older male in no acute distress. HEENT: Normal cephalic atraumatic. Pupils are equal round and reactive to light. Extraocular movements are intact. Oropharynx is pink with moist mucous membranes. No swelling of the mouth lips or tongue. Neck: Supple with a midline trachea. No meningeal signs or stiffness, no JVD or bruits. No Stridor. Chest: Clear to auscultation bilaterally. No wheezes or rhonchi. No increased w ork of breathing. Heart: Pacemaker in left chest. Regular rate and rhythm. Abdomen: Soft nontender, nondistended without rebound guarding or rigidity. Extremities: Trace lower extremity edema bilaterally. No cyanosis or clubbing. No calf tenderness or asymmetry Spine/Back. Non tender to palpation. No CVA tenderness Skin: Good turgor without rashes. Neurologic exam: Cranial nerves two through 12 are intact. Motor and sensation are intact and symmetrical throughout. Course Course 2116: Past medical records reviewed. The patient was evaluated in room A03. A complete history and physical exam was performed. 2330: I rechecked on the patient, who was resting comfortably. 0102: [facility] who agreed to take over care of the patient. The patient is agreeable to this and understands the treatment plan. The patient will stay for further evaluation. Administered Medications Discontinued Medications Furosemide (Lasix) 20 mg IV NOW STA Stop: 10/25/19 00:58 Last Admin: 10/25/19 01:11 Dose: 20 mg Documented by: [id number] Magnesium Sulfate/Dextrose (Magnesium Sulfate / D5w) 1 gm in 100 mls @ 100 m ls/hr IV ONE ONE Stop: 10/25/19 00:07 Last Infusion: 10/25/19 00:50 Dose: 0 mls/hr Documented by: [id number] Admin: 10/24/19 23:33 Dose: 100 mls/hr Documented by: [id number] Medical Decision Making Differential Diagnosis Differential diagnosis includes: acute coronary disease, arrhythmia, CHF, PE, sepsis, UTI, electrolyte and metabolic abnormality, among others were considered. Medical Records Attestation: I reviewed the patient's medical records. Home Medications Current Medication List: was personally reviewed by me Laboratory Data Attestation: I reviewed the patient's lab results. Result diagrams: 10/24/19 21:59 10/24/19 21:59 Lab Results 10/24/19 10/24/19 10/24/19 Range/Units 20:40 21:37 21:59 WBC 9.23 (4.8-10.8) K/uL RBC 4.17 L (4.7-6.1) M/uL Hgb 12.7 L (14.0-18.0) g/dL Hct 38.4 L (42-52) % MCV 92.1 (80-100) fL MCH 30.5 (25-34) pg MCHC 33.1 (32-36) g/dL RDW Std Deviation 46.2 (36.4-46.3) fL RDW Coeff of Ricky 13.7 (11.5-14.5) % Plt Count 101 L (130-400) K/uL MPV 11.3 H (7.4-10.4) fL Immature Gran % (Auto) 0.2 % Neut % (Auto) 85.2 % Lymph % (Auto) 4.1 % [place] % (Auto) 9.1 % Eos % (Auto) 1.2 % Baso % (Auto) 0.2 % Immature Gran # (Auto) 0.02 (0.00-0.02) K/uL Neut # (Auto) 7.86 H (1.4-6.5) K/uL Lymph # (Auto) 0.38 L (1.2-3.4) K/uL [place] # (Auto) 0.84 H (0.11-0.59) K/uL Eos # (Auto) 0.11 (0-0.5) K/uL Baso # (Auto) 0.02 (0-0.2) K/uL PT (9.0-12.0) Seconds INR (0.9-1.1) APTT (21.0-31.0) Seconds PTT Ratio Sodium (136-145) mmol/L Potassium (3.5-5.1) mmol/L Chloride (98-107) mmol/L Carbon Dioxide (21-32) mmol/L Anion Gap (3-11) BUN (7-18) mg/dl Creatinine (0.6-1.4) mg/dl Est Cr Clr Drug Dosing ml/min Est GFR ( Amer) Est GFR (Non-Af Amer) BUN/Creatinine Ratio (10-20) Glucose (70-99) mg/dl Lactate (0.4-2.0) mmol/L Calcium (8.5-10.1) mg/dl Magnesium (1.8-2.4) mg/dl Total Bilirubin (0.2-1) mg/dl AST (15-37) U/L ALT (12-78) U/L Alkaline Phosphatase (45-117) U/L Troponin I (0-0.045) ng/ml Total Protein (6.4-8.2) gm/dl Albumin (3.4-5.0) gm/dl Globulin (2.5-4.0) gm/dl Albumin/Globulin Ratio (0.9-2) Urine Color Dark Yellow Urine Appearance Clear (Clear) Urine pH 6.5 (4.5-7.5) Ur Specific [place] 1.022 (1.000-1.030) Urine Protein Trace H (Negative) Urine Glucose (UA) Negative (Negative) Urine Ketones Trace H (Negative) Urine Blood Negative (Negative) Urine Nitrite Negative (Negative) Urine Bilirubin Negative (Negative) Urine Urobilinogen Negative (Negative) Ur Leukocyte Esterase 1+ H (Negative) Urine WBC (Auto) 10-30 H (0-5) /hpf Urine RBC (Auto) 0-4 (0-4) /hpf U Hyaline Cast (Auto) 1-5 (0-5) /lpf U Epithel Cells (Auto) 10-20 H (0-5) /lpf Urine Bacteria (Auto) Negative (Negative) Influenza Type A (PCR) Neg for Influ A (Neg) Influenza Type B (PCR) Neg for Influ B (Neg) 10/24/19 10/24/19 10/24/19 Range/Units 21:59 21:59 21:59 WBC (4.8-10.8) K/uL RBC (4.7-6.1) M/uL Hgb (14.0-18.0) g/dL Hct (42-52) % MCV (80-100) fL MCH (25-34) pg MCHC (32-36) g/dL RDW Std Deviation (36.4-46.3) fL RDW Coeff of Ricky (11.5-14.5) % Plt Count (130-400) K/uL MPV (7.4-10.4) fL Immature Gran % (Auto) % Neut % (Auto) % Lymph % (Auto) % [place] % (Auto) % Eos % (Auto) % Baso % (Auto) % Immature Gran # (Auto) (0.00-0.02) K/uL Neut # (Auto) (1.4-6.5) K/uL Lymph # (Auto) (1.2-3.4) K/uL [place] # (Auto) (0.11-0.59) K/uL Eos # (Auto) (0-0.5) K/uL Baso # (Auto) (0-0.2) K/uL PT 11.4 (9.0-12.0) Seconds INR 1.1 (0.9-1.1) APTT 29.0 (21.0-31.0) Seconds PTT Ratio 1.1 Sodium 135 L (136-145) mmol/L Potassium 3.5 (3.5-5.1) mmol/L Chloride 100 (98-107) mmol/L Carbon Dioxide 27 (21-32) mmol/L Anion Gap 8.0 (3-11) BUN 18 (7-18) mg/dl Creatinine 1.01 (0.6-1.4) mg/dl Est Cr Clr Drug Dosing 76.5 ml/min Est GFR ( Amer) 82.8 Est GFR (Non-Af Amer) 71.4 BUN/Creatinine Ratio 17.6 (10-20) Glucose 114 H (70-99) mg/dl Lactate 1.5 (0.4-2.0) mmol/L Calcium 9.4 (8.5-10.1) mg/dl Magnesium 1.7 L (1.8-2.4) mg/dl Total Bilirubin 1.4 H (0.2-1) mg/dl AST 12 L (15-37) U/L ALT 15 (12-78) U/L Alkaline Phosphatase 60 (45-117) U/L Troponin I < 0.015 (0-0.045) ng/ml Total Protein 7.8 (6.4-8.2) gm/dl Albumin 3.9 (3.4-5.0) gm/dl Globulin 3.9 (2.5-4.0) gm/dl Albumin/Globulin Ratio 1.0 (0.9-2) Urine Color Urine Appearance (Clear) Urine pH (4.5-7.5) Ur Specific [place] (1.000-1.030) Urine Protein (Negative) Urine Glucose (UA) (Negative) Urine Ketones (Negative) Urine Blood (Negative) Urine Nitrite (Negative) Urine Bilirubin (Negative) Urine Urobilinogen (Negative) Ur Leukocyte Esterase (Negative) Urine WBC (Auto) (0-5) /hpf Urine RBC (Auto) (0-4) /hpf U Hyaline Cast (Auto) (0-5) /lpf U Epithel Cells (Auto) (0-5) /lpf Urine Bacteria (Auto) (Negative) Influenza Type A (PCR) (Neg) Influenza Type B (PCR) (Neg) Imaging Data Radiologist's Impression: Radiology results as stated below per my review and the radiologist's interpretation: XR chest 1V portable HISTORY: SEPSIS COMPARISON: Chest 11/11/2019. FINDINGS: No pneumothorax. The cardiac silhouette is mildly enlarged. This has progressed in the interval. Stable blunting of the costophrenic sulcus. There is mild central pulmonary vascular congestion without overt edema. No new focal lung consolidations to suggest pneumonia. Left-sided dual-chamber pacemaker. Poststernotomy changes. Old, healed right-sided rib fractures. IMPRESSION: Interval progression of the cardiomegaly and mild central pulmonary vascular congestion. ACT 112: Negative or not required by law. Electronically signed by: Sergio Allred M.D. 10/24/2019 10:35 PM ECG Data Attestation: I personally reviewed and interpreted this ECG as follows: Indication: + SOB/dyspnea Rate (beats per minute): 83 Rhythm: + other (ventricular paced rhythm) ECG ST segments: no ST depression and no ST elevation ECG Findings: no PACs and no PVCs Comparison ECG Date: from (08/31/19) Change: no significant change Blood Pressure Blood Pressure Findings: Elevated blood pressure Blood Pressure Disposition: further management by hospitalist [facility] Narrative This patient comes in as described above. He has a history of reflux and has frequent regurgitation. he was up all night with this. He felt a little short of breath today at home and he had a fever as well. He has no chest pain or shortness of breath at present and looks well. Denies dysuria. He does have a very complex medical history. He has had no weight gain. IV access was established and a full sepsis work-up was done including cultures he has no white count or lactic acid elevation to suggest sepsis or infection. Chest x- ray shows some mild vascular congestion but no overt CHF. No pneumonia or pneumothorax. EKG shows a paced rhythm. Troponin was negative and in the setting of having symptoms for prolonged hours overnight makes cardiac disease unlikely. He has no significant atrial or metabolic abnormalities. He had a recent CAT scan of his chest on this week which was unremarkable, there is a questionable nodule on a chest x-ray which was not present on CAT scan. Urinalysis shows a likely contaminated specimen. I do think that he is somewhat fluid overloaded and he was given Lasix 20 mg IV. His last EF in August was low. That may be explaining his symptoms. At this point, I am not finding any source of infection or inflammatory markers to suggest sepsis. I do think he needs to be admitted/observed for diuresis and further evaluation and mo nitoring. I did consult Dr. Cowan to see him for these measures Continuous Cardiac Monitoring: An order was placed for continuous cardiac monitoring. The monitor shows a rate of 83 with paced ventricular rhythm. Impression & Plan SOB (shortness of breath), Fever, GERD (gastroesophageal reflux disease), History of coronary artery bypass graft, CHF (congestive heart failure) Discharge Plan Visit Data Chief Complaint: Shortness of Breath/Dyspnea Stated Complaint: SOB, FEVER ED Provider: Pablo Carvajal Discharge Problem: SOB (shortness of breath), Fever, GERD (gastroesophageal reflux disease), History of coronary artery bypass graft, CHF (congestive heart failure) Forms Stand Alone Forms: My [facility] [employer] Prescriptions Prescriptions: No Action metoprolol tartrate 50 mg tablet 75 mg PO BID Qty: 270 RF: 1 nitroglycerin 0.4 mg tablet, sublingual 0.4 mg SL Q5M PRN (Reason: chest pain) Qty: 30 RF: 3 esomeprazole magnesium [Nexium] 40 mg capsule,delayed release(DR/EC) 40 mg PO QPM RF: 0 multivitamin [Multiple Vitamins] Tablet 1 tab PO QAM RF: 0 citalopram 10 mg Tablet 10 mg PO QAM RF: 0 aspirin [Aspir-81] 81 mg Tablet,Delayed Release (Dr/Ec) 81 mg PO QAM RF: 0 ezetimibe-simvastatin [Vytorin 10-40] 10-40 mg Tablet 1 tab PO HS RF: 0 cholecalciferol (vitamin D3) [Vitamin D3] 2,000 unit Capsule 2,000 unit PO QAM RF: 0 isosorbide mononitrate 120 mg tablet extended release 24 hr 120 mg PO QAM RF: 0 furosemide [Lasix] 20 mg tablet 20 mg PO QAM RF: 0 Discharge Problem: Fever Qualifiers: Fever type: unspecified Qualified Code(s): R50.9 - Fever, unspecified GERD (gastroesophageal reflux disease) Qualifiers: Esophagitis presence: esophagitis presence not specified Qualified Code(s): K21.9 - Gastro-esophageal reflux disease without esophagitis CHF (congestive heart failure) Qualifiers: Heart failure type: unspecified Heart failure chronicity: unspecified Qualified Code(s): I50.9 - Heart failure, unspecified The scribe's documentation has been prepared under my direction and personally reviewed by me in its entirety. I confirm that the note above accurately reflects all work, treatment, procedures, and medical decision making performed by me.
[2019-10-25] MEDS ORDERED: FUROSEMIDE 40 MG/4 ML VIAL IV STA (00:57)
[2019-10-25] MEDS ORDERED: ACETAMINOPHEN 325 MG TAB PO PRN (03:48)
[2019-10-25] MEDS ORDERED: ALUMINUM/MAGNESIUM SUSP 30 ML UDC PO PRN (03:48)
[2019-10-25] MEDS ORDERED: MAGNESIUM HYDROXIDE SUSP 30 ML UDC PO PRN (03:48)
[2019-10-25] MEDS ORDERED: POLYETHYLENE (MIRALAX) 17 GM PACK PO PRN (03:48)
[2019-10-25] MEDS ORDERED: ONDANSETRON INJ 2 MG/ML 2 ML VIAL IV PRN (03:48)
[2019-10-25] MEDS ORDERED: NITROGLYCERIN SL 0.4 MG/TAB TAB SL PRN (03:48)
[2019-10-25] MEDS ORDERED: cefTRIAXone SODIUM 2,000 MG in DEXTROSE 5% 50 ML IV SCH (04:00)
[2019-10-25 04:04] LABS: Hemoglobin 13.1 g/dL (14.0-18.0); Mean Corpuscular Hemoglobin 30.8 pg (25-34); Mean Corpuscular Hgb Conc 33.6 g/dL (32-36); Mean Corpuscular Volume 91.8 fL (80-100); RDW Coefficient of Variation 13.7 % (11.5-14.5); RDW Standard Deviation 45.3 fL (36.4-46.3); Red Blood Count 4.25 M/uL (4.7-6.1)
[2019-10-25 04:31] LABS: Alanine Aminotransferase 14 U/L (12-78); Albumin Level 3.7 gm/dl (3.4-5.0); Aspartate Aminotransferase 11 U/L (15-37); BUN Creatinine Ratio 13.3 (10-20); Blood Urea Nitrogen 15 mg/dl (7-18); Calcium 8.8 mg/dl (8.5-10.1); Carbon Dioxide 27 mmol/L (21-32); Chloride 99 mmol/L (98-107); Creatinine Clr Calc Pharmacy 69.4 ml/min; Est GFR (African American) 74.7; Est GFR (Non-African American) 64.4; Glucose 133 mg/dl (70-99); Potassium 3.2 mmol/L (3.5-5.1); Sodium 133 mmol/L (136-145)
[2019-10-25 04:35] LABS: Albumin Globulin Ratio 0.9 (0.9-2); Alkaline Phosphatase 58 U/L (45-117); Bilirubin,Total 1.5 mg/dl (0.2-1); Globulin 3.9 gm/dl (2.5-4.0); Total Protein 7.6 gm/dl (6.4-8.2); Troponin I < 0.015 ng/ml (0-0.045)
[2019-10-25 04:52] LABS: Basophils # (auto) 0.02 K/uL (0-0.2); Basophils % (auto) 0.2 %; Eosinophils # (auto) 0.03 K/uL (0-0.5); Eosinophils % (auto) 0.3 %; Immature Granulocytes # (auto) 0.02 K/uL (0.00-0.02); Immature Granulocytes % (auto) 0.2 %; Lymphocytes # (auto) 0.99 K/uL (1.2-3.4); Lymphocytes % (auto) 9.5 %; Mean Platelet Volume 11.1 fL (7.4-10.4); Monocytes # (auto) 0.93 K/uL (0.11-0.59); Monocytes % (auto) 8.9 %; Neutrophils # (auto) 8.41 K/uL (1.4-6.5); Neutrophils % (auto) 80.9 %; Platelet Count 88 K/uL (130-400); Platelet Estimate Decreased (Normal)
[2019-10-25] MEDS ORDERED: LEVOFLOXACIN/D5W 500 MG/100 ML BAG IV SCH (05:00)
--- NOTE | 2019-10-25 05:05 | History & Physical Report ---
Date of Service October 25, 2019 Assessment & Plan (1) SOB (shortness of breath): Acute worsening of chronic shortness of breath secondary to CHF and upper respiratory infection- Present on Admission?: Yes (2) CHF (congestive heart failure): CAD/hypertension/CHF- The patient will be admitted to telemetry for serial cardiac enzymes, serial EKG's, cardiac rhythm monitoring and a 2-D echocardiogram with Dopplers. Given Lasix 40 mg IV in the ED. Will place on Lasix 40 mg IV every morning, and hold oral Lasix for now. He has been following closely with Dr. Blackwell from cardiology due to changes in his cardiac status, and he would be consulted. Continue aspirin 81 mg daily isosorbide mononitrate 120 mg daily and metoprolol tartrate 75 mg p.o. twice daily. Present on Admission?: Yes (3) Upper respiratory infection: Place on ceftriaxone 1 g IV daily and levofloxacin 100 mg IV every 24 hours. Sputum Gram stain and culture Guaifenesin extended release 600 mg p.o. twice daily Present on Admission?: Yes (4) CAD (coronary artery disease): See above Present on Admission?: Yes (5) Essential hypertension: See above Present on Admission?: Yes (6) GERD (gastroesophageal reflux disease): Nexium 40 mg p.o. daily will be changed to pantoprazole 40 mg p.o. daily Present on Admission?: Yes (7) Depression: Continue citalopram 10 mg p.o. every morning Present on Admission?: Yes (8) IELEEN on CPAP: Will hold on CPAP for now, if patient requires additional noninvasive ventilatory support, would likely opt for BiPAP. Present on Admission?: Yes History of Present Illness Chief Complaint: Patient presents to the emergency department with progressive shortness of breath and cough productive of yellow mucus over the past few days, and in particular worse over the past 24 hours Primary Care Provider: Trae Garza The patient is a 79-year-old male with a past medical history including GERD, CABG, CHF, hearing loss, near syncope, prostate cancer, UTI, cholecystitis, obstructive jaundice, pancreatitis, CAD, atrial flutter, thrombocytopenia, EILEEN on CPAP, hypertension, and STEMI, depression and status post cardiac pacemaker. He presents to the emergency department with persistent shortness of breath over the past several days to week, and a chronic cough that was become more productive of yellow mucus over the past 24 hours or so. He denies any recent travels or sick exposures. Allergies Allergy/AdvReac Type Severity Reaction Status Date / Time Sulfa (Sulfonamide Allergy Mild rash Verified 10/24/19 22:14 Antibiotics) olmesartan Allergy Verified 10/24/19 22:14 metoclopramide AdvReac Intermediate Depression Verified 10/24/19 22:14 oxycodone [From OxyContin] AdvReac Intermediate Hallucinati Verified 10/24/19 22:14 ons ciprofloxacin [From Cipro] AdvReac Mild see notes Verified 10/24/19 22:14 lisinopril AdvReac Mild cough Verified 10/24/19 22:14 Home Medications Home Medications Medication Instructions Recorded Confirmed Type aspirin [Aspir-81] 81 mg PO QAM 06/19/18 10/24/19 History cholecalciferol (vitamin D3) 2,000 unit PO QAM 06/19/18 10/24/19 History [Vitamin D3] citalopram 10 mg PO QAM 06/19/18 10/24/19 History ezetimibe-simvastatin [Vytorin 1 tab PO HS 06/19/18 10/24/19 History 10-40] multivitamin [Multiple Vitamins] 1 tab PO QAM 06/19/18 10/24/19 History metoprolol tartrate 50 mg tablet 75 mg PO BID #270 tab 05/19/19 10/24/19 Rx esomeprazole magnesium 40 mg 40 mg PO QPM cap 06/29/19 10/24/19 History capsule,delayed release nitroglycerin 0.4 mg sublingual 0.4 mg SL Q5M PRN #30 tab 10/13/19 10/24/19 Rx tablet furosemide [Lasix] 20 mg PO QAM 10/24/19 10/24/19 History isosorbide mononitrate 120 mg PO QAM 10/24/19 10/24/19 History Past Med/Surg History Medical History A-fib incidentally noted episodic a.fib/a.flutter on pacemaker check- on beta alyssa, cardiology holding on anticoagulation in setting of hematuria CAD (coronary artery disease) S/P CABG X3 (2012), remote hx of cardiac stents x2 (7+ years ago) COPD (chronic obstructive pulmonary disease) stable Fistula colovesical fistula GERD (gastroesophageal reflux disease) controlled History of prostate cancer History of urinary incontinence Hx of cardiac pacemaker / SSS/high grade AVB; [employer] implanted 09/2017. Last pacer check: 04/2019 Hx of myocardial infarction during cardiac cath (2012)- subseuqent CABG X3 Hyperlipidemia Kyphosis Pulmonary HTN RVSP 40-50mmhg Rosacea Sleep apnea CPAP SMA stenosis asymptomatic, "incidental finding" per cardiology SNHL (sensorineural hearing loss) Urethral stricture + recurrent UTI's/reason for upcoming procedure Surgical History H/O cystoscopy History of arthroplasty of right knee History of cardiac cath remote hx cardiac stents x2 04/2019: medically managed History of robot-assisted laparoscopic radical prostatectomy 2016 Hx of bilateral cataract extraction WITH LASIK PROCEDURE Hx of colonoscopy Hx of heart bypass surgery S/P CABG X 3 (2012) Hx of tooth extraction Family History Mother Hypertension Breast cancer Father Cardiac disorder Myocardial infarction Denies family history of Clotting disorder Social History Preferred Language: Nepalese Communication Ability: Effective Visual Impairment: No Limitations Motor Vehicle 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 Smoked 1ppd x 20 years. ; Second Hand Exposure: No ; Hx Alcohol Use: Yes Alcohol type: hard liquor Hx Substance Use: No Review of Systems Review of Systems: The patient denies chest pain, palpitations, sore throat, fevers, chills, sweats, vomiting, diarrhea , constipation, abdominal pain, pelvic pain, blood in urine or stool, dysuria, urinary frequency or urgency, lightheadedness, dizziness, headache, loss of consciousness, rash, focal weakness, numbness or tingling in arms or legs, generalized arthralgias or myalgias, back or neck pain, or night sweats. The review of systems is otherwise negative other than for that already noted above, and at least 10 systems have been reviewed. Physical Exam Physical Exam: The patient is awake, alert and oriented 3, well developed and well nourished, normocephalic and atraumatic, lying in bed and in no acute distress. HEENT--PERRL, EOMI, mucous membranes and oropharynx dry. Neck--supple. No JVD. No bruits. Thyroid normal, trachea midline, no adenopathy. Heart--normal S1 and S2. No murmurs, rubs or gallops. Lungs--clear bilaterally, no respiratory distress, no accessory muscle use. Abdomen--normal bowel sounds and soft. Nontender. Nondistended. Extremities--no cyanosis or clubbing. 1+ bilateral pretibial pitting edema. Dermatologic--normal skin turgor, normal color, no abnormal lymph nodes, no radha h. Neurologic--cranial nerves II through XII grossly intact. Rheumatologic--normal range of motion. Psychiatric--normal affect. Results & Data Vital Signs (Past 12 Hours) Vital Signs Temp Pulse Pulse Resp BP BP Pulse Ox 10/25/19 04:09 80 10/25/19 03:56 99.1 F 111 H 20 186/98 H 95 10/25/19 03:23 99.5 F 99 H 20 165/92 H 98 10/25/19 02:31 94 H 20 145/84 H 94 10/25/19 02:30 84 20 94 10/25/19 02:15 85 20 142/85 H 93 10/25/19 02:00 94 H 24 142/84 H 93 10/25/19 01:45 85 24 157/87 H 93 10/25/19 01:31 96 H 25 H 94 10/25/19 01:30 97 H 26 H 152/84 H 94 10/25/19 01:16 101 H 26 H 94 10/25/19 01:15 105 H 21 164/93 H 95 10/25/19 01:01 96 H 24 95 10/25/19 01:00 98 H 23 152/85 H 94 10/25/19 00:45 99 H 25 H 158/98 H 94 10/25/19 00:31 88 26 H 93 10/25/19 00:30 88 26 H 151/82 H 94 10/25/19 00:16 90 22 148/75 H 93 10/25/19 00:01 91 H 22 94 10/25/19 00:00 92 H 25 H 153/82 H 94 10/24/19 23:45 91 H 24 150/79 H 93 10/24/19 23:31 92 H 28 H 94 10/24/19 23:30 94 H 24 148/87 H 93 10/24/19 23:15 80 22 141/103 H 95 10/24/19 23:00 72 22 150/74 H 95 10/24/19 22:46 93 H 24 96 10/24/19 22:45 98.2 F 93 H 20 163/90 H 98 10/24/19 22:40 93 10/24/19 22:32 85 27 H 99 10/24/19 22:31 87 21 150/88 H 98 10/24/19 22:30 90 24 96 10/24/19 22:20 87 26 H 96 10/24/19 22:16 88 18 156/84 H 95 10/24/19 22:10 84 34 H 94 10/24/19 22:07 89 27 H 156/86 H 95 10/24/19 22:00 83 26 H 10/24/19 21:50 89 30 H 10/24/19 21:40 90 22 10/24/19 21:30 84 22 94 10/24/19 21:29 95 10/24/19 21:22 87 32 H 93 10/24/19 21:19 95 10/24/19 21:02 98.2 F 92 H 18 141/85 H 94 10/24/19 20:49 85 25 H 135/68 93 Laboratory Results Laboratory Results WBC 10.40 K/uL (4.8-10.8) 10/25/19 03:55 RBC 4.25 M/uL (4.7-6.1) L 10/25/19 03:55 Hgb 13.1 g/dL (14.0-18.0) L 10/25/19 03:55 Hct 39.0 % (42-52) L 10/25/19 03:55 MCV 91.8 fL (80-100) 10/25/19 03:55 MCH 30.8 pg (25-34) 10/25/19 03:55 MCHC 33.6 g/dL (32-36) 10/25/19 03:55 RDW Std Deviation 45.3 fL (36.4-46.3) 10/25/19 03:55 RDW Coeff of Ricky 13.7 % (11.5-14.5) 10/25/19 03:55 Plt Count 88 K/uL (130-400) L 10/25/19 03:55 MPV 11.1 fL (7.4-10.4) H 10/25/19 03:55 Immature Gran % (Auto) 0.2 % 10/25/19 03:55 Neut % (Auto) 80.9 % 10/25/19 03:55 Lymph % (Auto) 9.5 % 10/25/19 03:55 Mckean % (Auto) 8.9 % 10/25/19 03:55 Eos % (Auto) 0.3 % 10/25/19 03:55 Baso % (Auto) 0.2 % 10/25/19 03:55 Immature Gran # (Auto) 0.02 K/uL (0.00-0.02) 10/25/19 03:55 Neut # (Auto) 8.41 K/uL (1.4-6.5) H 10/25/19 03:55 Lymph # (Auto) 0.99 K/uL (1.2-3.4) L 10/25/19 03:55 Mckean # (Auto) 0.93 K/uL (0.11-0.59) H 10/25/19 03:55 Eos # (Auto) 0.03 K/uL (0-0.5) 10/25/19 03:55 Baso # (Auto) 0.02 K/uL (0-0.2) 10/25/19 03:55 Platelet Estimate Decreased (Normal) L 10/25/19 03:55 PT 11.4 Seconds (9.0-12.0) 10/24/19 21:59 INR 1.1 (0.9-1.1) 10/24/19 21:59 APTT 29.0 Seconds (21.0-31.0) 10/24/19 21:59 PTT Ratio 1.1 10/24/19 21:59 Sodium 133 mmol/L (136-145) L 10/25/19 03:55 Potassium 3.2 mmol/L (3.5-5.1) L 10/25/19 03:55 Chloride 99 mmol/L (98-107) 10/25/19 03:55 Carbon Dioxide 27 mmol/L (21-32) 10/25/19 03:55 Anion Gap 7.0 (3-11) 10/25/19 03:55 BUN 15 mg/dl (7-18) 10/25/19 03:55 Creatinine 1.10 mg/dl (0.6-1.4) 10/25/19 03:55 Est Cr Clr Drug Dosing 69.4 ml/min 10/25/19 03:55 Est GFR ( Amer) 74.7 10/25/19 03:55 Est GFR (Non-Af Amer) 64.4 10/25/19 03:55 BUN/Creatinine Ratio 13.3 (10-20) 10/25/19 03:55 Glucose 133 mg/dl (70-99) H 10/25/19 03:55 Lactate 1.5 mmol/L (0.4-2.0) 10/24/19 21:59 Calcium 8.8 mg/dl (8.5-10.1) 10/25/19 03:55 Magnesium 1.7 mg/dl (1.8-2.4) L 10/24/19 21:59 Total Bilirubin 1.5 mg/dl (0.2-1) H 10/25/19 03:55 AST 11 U/L (15-37) L 10/25/19 03:55 ALT 14 U/L (12-78) 10/25/19 03:55 Alkaline Phosphatase 58 U/L (45-117) 10/25/19 03:55 Troponin I < 0.015 ng/ml (0-0.045) 10/25/19 03:55 Total Protein 7.6 gm/dl (6.4-8.2) 10/25/19 03:55 Albumin 3.7 gm/dl (3.4-5.0) 10/25/19 03:55 Globulin 3.9 gm/dl (2.5-4.0) 10/25/19 03:55 Albumin/Globulin Ratio 0.9 (0.9-2) 10/25/19 03:55 Urine Color Dark Yellow 10/24/19 20:40 Urine Appearance Clear (Clear) 03/01/20 20:40 Urine pH 6.5 (4.5-7.5) 10/24/19 20:40 Ur Specific [place] 1.022 (1.000-1.030) 10/24/19 20:40 Urine Protein Trace (Negative) H 10/24/19 20:40 Urine Glucose (UA) Negative (Negative) 10/24/19 20:40 Urine Ketones Trace (Negative) H 10/24/19 20:40 Urine Blood Negative (Negative) 10/24/19 20:40 Urine Nitrite Negative (Negative) 10/24/19 20:40 Urine Bilirubin Negative (Negative) 10/24/19 20:40 Urine Urobilinogen Negative (Negative) 10/24/19 20:40 Ur Leukocyte Esterase 1+ (Negative) H 10/24/19 20:40 Urine WBC (Auto) 10-30 /hpf (0-5) H 10/24/19 20:40 Urine RBC (Auto) 0-4 /hpf (0-4) 10/24/19 20:40 U Hyaline Cast (Auto) 1-5 /lpf (0-5) 10/24/19 20:40 U Epithel Cells (Auto) 10-20 /lpf (0-5) H 10/24/19 20:40 Urine Bacteria (Auto) Negative (Negative) 10/24/19 20:40 Influenza Type A (PCR) Neg for Influ A (Neg) 10/24/19 21:37 Influenza Type B (PCR) Neg for Influ B (Neg) 10/24/19 21:37 Diagnostic Findings [facility], [place] [phone] XRay Report Patient: ANGELINE WEN IIIAdmit Date: 10/24/19 MR#: [id number]: [address] [place] [address] Acct ID:[id number]: Date: [address] [place] [address] Zip: [place] [address] Age: 79Location: ED Sex: M Room/Bed: Att Phy:Diagnosis: SOB, FEVER Kristi Phy: Rodrigo Garza Date: 10/24/19 Fam Phy:Interpreting Phy: Sergio Allred MD Admit Phy: Ordering Phy: Pablo Carvajal M.D. cc: ~ XR chest 1V portable HISTORY: SEPSIS COMPARISON: Chest 11/11/2019. FINDINGS: No pneumothorax. The cardiac silhouette is mildly enlarged. This has progressed in the interval. Stable blunting of the costophrenic sulcus. There is mild central pulmonary vascular congestion without overt edema. No new focal lung consolidations to suggest pneumonia. Left-sided dual-chamber pacemaker. Poststernotomy changes. Old, healed right-sided rib fractures. IMPRESSION: Interval progression of the cardiomegaly and mild central pulmonary vascular congestion. ACT 112: Negative or not required by law. Electronically signed by: Sergio Allred M.D. 10/24/2019 10:35 PM Dictated: 10/24/192232 Transcribed: 10/24/192232 Code Status & VTE Plan Code Status Full code VTE Prophylaxis Plan VTE Prophylaxis will be ordered: Yes PG Care Time/CCT Total # of Minutes Spent Total Time Spent with Patient: Total time spent is greater than 50% in coordination of care (as documented) at patient's floor/unit and/or counseling patient: Coding Level of Care Code 96419 Initial Inpt Care Lvl 3 Diagnoses SOB (shortness of breath) R06.02 CHF (congestive heart failure) I50.9 Heart failure chronicity: unspecified Heart failure type: unspecified Upper respiratory infection J06.9 CAD (coronary artery disease) I25.119 Coronary Disease-Associated Artery/Lesion type: [place] artery [place] vs. transplanted heart: [place] heart Associated angina: with unspecified angina Essential hypertension I10 GERD (gastroesophageal reflux disease) K21.9 Esophagitis presence: esophagitis presence not specified Depression F32.9 Depression Type: unspecified EILEEN on CPAP G47.33; Z99.89 (1) CHF (congestive heart failure) Heart failure chronicity: unspecified Heart failure type: unspecified Qualified Code(s): I50.9 - Heart failure, unspecified (2) GERD (gastroesophageal reflux disease) Esophagitis presence: esophagitis presence not specified Qualified Code(s): K21.9 - Gastro-esophageal reflux disease without esophagitis (3) Depression Depression Type: unspecified Qualified Code(s): F32.9 - Major depressive disorder, single episode, unspecified (4) CAD (coronary artery disease) Coronary Disease-Associated Artery/Lesion type: [place] artery [place] vs. transplanted heart: [place] heart Associated angina: with unspecified angina Qualified Code(s): I25.119 - Atherosclerotic heart disease of [place] coronary artery with unspecified angina pectoris
[2019-10-25] MEDS ORDERED: FUROSEMIDE 40 MG/4 ML VIAL IV SCH (09:00)
[2019-10-25] MEDS: guaiFENesin 600 MG TABCR PO SCH ×2 (09:13→19:54)
[2019-10-25] MEDS: FUROSEMIDE 40 MG in SYRINGE 0 ML IV SCH (09:13)
[2019-10-25] MEDS: MULTIVITAMIN TAB PO SCH (09:13)
[2019-10-25] MEDS: CITALOPRAM 20 MG TAB PO SCH (09:13)
[2019-10-25] MEDS: CHOLECALCIFEROL 1,000 UNITS 25 MCG TAB PO SCH (09:13)
[2019-10-25] MEDS: ASPIRIN 81 MG ECTAB PO SCH (09:13)
[2019-10-25] MEDS: HEPARIN SOD 5,000 UNIT/0.5 ML VIAL SQ SCH ×2 (09:14→19:55)
[2019-10-25] MEDS: METOPROLOL TARTRATE 25 MG TAB PO SCH ×2 (09:14→19:54)
--- NOTE | 2019-10-25 10:58 | Electrocardiogram Report ---
Test Reason : Blood Pressure : / mmHG Vent. Rate : 083 BPM Atrial Rate : 083 BPM P-R Int : 200 ms QRS Dur : 200 ms QT Int : 480 ms P-R-T Axes : 030 -39 110 degrees QTc Int : 564 ms Atrial-sensed ventricular-paced rhythm Abnormal ECG When compared with ECG of 31-AUG-2019 15:22, Vent. rate has increased BY 12 BPM Confirmed by Cortes Casanova ([id number]) on 10/25/2019 10:58:15 AM Referred By: REFERRED SELF Confirmed By:Cortes Casanova
--- NOTE | 2019-10-25 11:19 | XCELERA ---
[id number] \\[email or web address]\PDF_Reports\[id number]}___[id number]
[2019-10-25] MEDS: ISOSORBIDE MONO EXTENDED REL 60 MG TABCR PO SCH (12:21)
[2019-10-25] MEDS ORDERED: Nursing to Pharmacy Communication ONE (12:21)
--- NOTE | 2019-10-25 16:29 | Hospitalist Progress Note ---
Date of Service October 25, 2019 Assessment & Plan (1) CHF (congestive heart failure): Presumed acute on chronic systolic heart failure. Patient reports gradually worsening dyspnea on exertion, though denies orthopnea. Given Lasix 40 mg IV in the ED. - Continue Lasix 40 mg IV daily - Cardiology consulted - Continue aspirin, Imdur, beta-alyssa - Follow weights, I&Os -> Weight is actually stable/down slightly from prior at 98.2 kg. (2) Upper respiratory infection: CXR on 10/23 was negative for focal infection. No other indication of infection. - Continue guaifenesin - Continue DuoNebs PRN (3) CAD (coronary artery disease): Per cardiology note from 09/2019, "[3v]CABG in 2012, prior PCI to RCA. RCA now known to be occluded. Patent grafts 05/2019 but SVG to PLB with disease pre/post-anastomosis." Follows with Dr. Blackwell in cardiology. - As above (4) Essential hypertension: BP is 120/55 today. - As above with medications (5) GERD (gastroesophageal reflux disease): No GERD symptoms. - Nexium 40 mg p.o. daily will be changed to pantoprazole 40 mg p.o. daily (6) COPD (chronic obstructive pulmonary disease): Unclear what role COPD is playing. I don't see any notes in our system regarding his breathing and not on any inhalers. - Monitor cardiac issues and consider pulmonary referral - DuoNebs PRN (7) Depression: Reports feeling depressed this morning due to health issues. - Continue citalopram 10 mg p.o. every morning (8) H/O atrial flutter: Seen on prior Holters and pacemaker. Presently in an atrially-sensed, ventricularly-paced rhythm. Not on anticoagulation. - Monitor on tele (9) EILEEN on CPAP: - Continue CPAP (hospital vs. home device). (10) DVT prophylaxis: Admission and Anticipated Discharge Date Admission Date: October 25, 2019 Subjective Doing better today. No major complaints overall. Feels he is breathing better. Reports no fevers/chills, chest pain, abdominal pain, nausea, or vomiting. Physical Exam Constitutional: WD/WN, vitals as above Eyes: EOM intact bilaterally; no conjunctival abnormality ENMT: external ear and nose normal, oropharynx normal Neck: trachea midline, no thyromegaly normal visual inspection Respiratory: no respiratory distress Auscultation: + crackles (Bibasilar) Cardiovascular: RRR, no murmur, no edema Gastrointestinal (Abdomen): Inspection/Auscultation: abdomen normal to inspection; abdomen not distended Musculoskeletal: no cyanosis or clubbing, extremities motor strength 5/5 Skin: no rashes, warm and dry Neurologic: moves all extremities and awake Psychiatric: Orientation: alert, oriented to person and cooperative Results & Data ([facility]) Vital Signs (Past 12 Hours) Vital Signs Temp Pulse Resp BP BP Pulse Ox 10/25/19 15:37 37.8 C H 75 20 123/55 L 91 10/25/19 11:15 37.4 C 71 17 94/56 L 93 10/25/19 08:58 37.2 C 102/72 10/25/19 07:42 38.0 C H 111 H 18 105/69 92 PG Care Time/CCT Total # of Minutes Spent Total Time Spent with Patient: Total time spent is greater than 50% in coordination of care (as documented) at patient's floor/unit and/or counseling patient: Coding Level of Care Code 56871 Subseq Hosp Care Lvl 3 Diagnoses CHF (congestive heart failure) I50.9 Heart failure chronicity: unspecified Heart failure type: unspecified Upper respiratory infection J06.9 CAD (coronary artery disease) I25.119 Coronary Disease-Associated Artery/Lesion type: [place] artery [place] vs. transplanted heart: [place] heart Associated angina: with unspecified angina Essential hypertension I10 GERD (gastroesophageal reflux disease) K21.9 Esophagitis presence: esophagitis presence not specified COPD (chronic obstructive pulmonary disease) J44.9 COPD type: unspecified COPD Depression F32.9 Depression Type: unspecified H/O atrial flutter Z86.79 EILEEN on CPAP G47.33; Z99.89 DVT prophylaxis Z29.9 (1) CHF (congestive heart failure) Heart failure chronicity: unspecified Heart failure type: unspecified Qualified Code(s): I50.9 - Heart failure, unspecified (2) CAD (coronary artery disease) Coronary Disease-Associated Artery/Lesion type: [place] artery [place] vs. transplanted heart: [place] heart Associated angina: with unspecified angina Qualified Code(s): I25.119 - Atherosclerotic heart disease of [place] coronary artery with unspecified angina pectoris (3) GERD (gastroesophageal reflux disease) Esophagitis presence: esophagitis presence not specified Qualified Code(s): K21.9 - Gastro-esophageal reflux disease without esophagitis (4) Depression Depression Type: unspecified Qualified Code(s): F32.9 - Major depressive disorder, single episode, unspecified (5) COPD (chronic obstructive pulmonary disease) COPD type: unspecified COPD Qualified Code(s): J44.9 - Chronic obstructive pulmonary disease, unspecified
[2019-10-25] MEDS ORDERED: ALBUT/IPRATROP 3MG/0.5MG NEB 3 ML VIAL NEB PRN (16:32)
--- NOTE | 2019-10-25 16:51 | Cardiology Consultation ---
Date of Consultation October 25, 2019 Assessment & Plan (1) Upper respiratory infection: 2. Acute on chronic systolic heart failure 3. Moderate to severe LV dysfunction 4. Multivessel coronary artery disease 5. History of AV block post dual-chamber pacemaker/possible pacemaker mediated tachycardia 6. Thrombocytopenia 7. Hypertension Patient admitted with upper respiratory symptoms, fever and progressive shortness of breath. Found to have some evidence of acute on chronic heart failure now post IV diuresis. Suspect acute decompensation triggered by upper respiratory illness. No evidence of ACS. Respiratory symptoms modestly improved today. Well-perfused with minimal residual congestion on exam. Suspect may be able to transition to p.o. diuretics tomorrow Reviewed repeat echocardiogram today. Worsened LV dysfunction although tachycardic at time of evaluation. Review of telemetry suggestive of possible pacemaker mediated tachycardia and will have EP evaluate further. Is primarily RV paced and question whether could benefit from LABOR CONTRACTOR. Recommendations: Continue to monitor on telemetry Continue IV diuretics today, possible transition to p.o. Lasix 40 mg tomorrow Continue current beta-alyssa. Resume Imdur as BP allows Continue aspirin, statin Will discuss with EP regarding possible PMT. Also if long-term benefit for LABOR CONTRACTOR-D History of Present Illness Attending Physician: Zhang Valera MD History of Present Illness Mr. Sesay is a 79-year-old man with a complex past medical history well-known to me from the outpatient setting admitted last night in the setting of fevers, vomiting and worsening shortness of breath. Prior cardiac history includes multivessel coronary artery disease post three- vessel CABG in 2012 (ROBERTO to LAD, SVG to PLB, SVG to ramus), known occluded RCA, advanced heart block post Medtronic dual-chamber pacemaker, frequent PVCs, hypertension, chronic systolic heart failure with last EF on nuclear SPECT 08/2019 of 25% (previously 45% on last echo 03/2019). Patient was last seen by me 2 weeks ago. At that time was endorsing increased shortness of breath, chest discomfort. Imdur was increased with improvement in chest pain. BNP, chest x-ray clear at that time. Maintained on 20 mg of Lasix daily. Over the last several days states that shortness of breath has worsened with notable wheezing. On the day admission patient had intermittent confusion and later became febrile to 102.6. Chest x-ray on admission showed mild congestion and proBNP elevated to 2900. Has been given IV Lasix 40 mg x 2. EKG showed V paced rhythm. Troponins negative. Has been having intermittent low- grade fevers and also started on levofloxacin, ceftriaxone. Allergies Allergy/AdvReac Type Severity Reaction Status Date / Time Sulfa (Sulfonamide Allergy Mild rash Verified 10/24/19 22:14 Antibiotics) olmesartan Allergy Verified 10/24/19 22:14 metoclopramide AdvReac Intermediate Depression Verified 10/24/19 22:14 oxycodone [From OxyContin] AdvReac Intermediate Hallucinati Verified 10/24/19 22:14 ons ciprofloxacin [From Cipro] AdvReac Mild see notes Verified 10/24/19 22:14 lisinopril AdvReac Mild cough Verified 10/24/19 22:14 Home Medications Home Medications Medication Instructions Recorded Confirmed Type aspirin [Aspir-81] 81 mg PO QAM 06/19/18 10/24/19 History cholecalciferol (vitamin D3) 2,000 unit PO QAM 06/19/18 10/24/19 History [Vitamin D3] citalopram 10 mg PO QAM 06/19/18 10/24/19 History ezetimibe-simvastatin [Vytorin 1 tab PO HS 06/19/18 10/24/19 History 10-40] multivitamin [Multiple Vitamins] 1 tab PO QAM 06/19/18 10/24/19 History metoprolol tartrate 50 mg tablet 75 mg PO BID #270 tab 05/19/19 10/24/19 Rx esomeprazole magnesium 40 mg 40 mg PO QPM cap 06/29/19 10/24/19 History capsule,delayed release nitroglycerin 0.4 mg sublingual 0.4 mg SL Q5M PRN #30 tab 10/13/19 10/24/19 Rx tablet furosemide [Lasix] 20 mg PO QAM 10/24/19 10/24/19 History isosorbide mononitrate 120 mg PO QAM 10/24/19 10/24/19 History Patient History Medical History A-fib incidentally noted episodic a.fib/a.flutter on pacemaker check- on beta alyssa, cardiology holding on anticoagulation in setting of hematuria CAD (coronary artery disease) S/P CABG X3 (2012), remote hx of cardiac stents x2 (7+ years ago) COPD (chronic obstructive pulmonary disease) stable Fistula colovesical fistula GERD (gastroesophageal reflux disease) controlled History of prostate cancer History of urinary incontinence Hx of cardiac pacemaker 2/ SSS/high grade AVB; Medtronic implanted 09/2017. Last pacer check: 04/2019 Hx of myocardial infarction during cardiac cath (2012)- subseuqent CABG X3 Hyperlipidemia Kyphosis Pulmonary HTN RVSP 40-50mmhg Rosacea Sleep apnea CPAP SMA stenosis asymptomatic, "incidental finding" per cardiology SNHL (sensorineural hearing loss) Urethral stricture + recurrent UTI's/reason for upcoming procedure Surgical History H/O cystoscopy History of arthroplasty of right knee History of cardiac cath remote hx cardiac stents x2 04/2019: medically managed History of robot-assisted laparoscopic radical prostatectomy 2015 Hx of bilateral cataract extraction WITH LASIK PROCEDURE Hx of colonoscopy Hx of heart bypass surgery S/P CABG X 3 (2012) Hx of tooth extraction Family History Mother Hypertension Breast cancer Father Cardiac disorder Myocardial infarction Denies family history of Clotting disorder Social History Preferred Language: Polish Communication Ability: Effective Visual Impairment: No Limitations Project Management Advisor Required: No Beliefs That Will Affect Care: None marital status: Current Living Situation: Spouse Other Information That Helps Us Care for You: No Feels Safe at Home: Yes Safety Concerns: Feels Safe At This Time Smoking Status: Never smoker Tobacco Type: cigarettes ; Cigarettes Per Day: QUIT IN THE 1980S. Smoked 1ppd x 20 years. ; Second Hand Exposure: No ; Hx Alcohol Use: Yes Alcohol type: hard liquor Hx Substance Use: No Review of Systems Review of Systems: All systems reviewed & are unremarkable except as noted in HPI & below Physical Exam Physical Exam: General: Comfortable, no acute distress, sleepy Eyes: Sclerae anicteric, extraocular movements intact HENT: Oropharynx clear mucous membranes moist Neck: No JVD. Lungs: Breath sounds mildly decreased at right base. Few scattered wheezes. Cardiac: Regular rate and rhythm, no murmurs Vascular: 2+ radial Abdomen: Soft, nontender Extremities: Well perfused, no peripheral edema Skin: No rashes or lesions. Neuro: Nonfocal Psych: Alert, Oriented x2, recollection foggy Results & Data ([facility]) Vital Signs (Past 12 Hours) Vital Signs Temp Pulse Resp BP BP Pulse Ox 10/25/19 15:37 100.0 F H 75 20 123/55 L 91 10/25/19 11:15 99.3 F 71 17 94/56 L 93 10/25/19 08:58 99.0 F 102/72 10/25/19 07:42 100.4 F H 111 H 18 105/69 92 Diagnostic Findings Echo today: EF 35 to 40%, inferior akinesis, abnormal septal motion consistent with conduction abnormality, apex/mid anterior/anteroseptal/inferolateral wall hypokinesis. Normal CVP Telemetryprimarily paced rhythm, occasional PVCs, periods of tachycardia to the 100s 110ssuspect pacemaker mediated tachycardia. PG Care Time/CCT Total # of Minutes Spent Total Time Spent with Patient: Total time spent is greater than 50% in coordination of care (as documented) at patient's floor/unit and/or counseling patient: Coding Level of Care Code 90481 Inpt Consult Level 4 Diagnoses Upper respiratory infection J06.9
[2019-10-25] MEDS: PANTOprazole 40 MG TAB PO SCH (19:54)
[2019-10-25] MEDS: EZETIMIBE/SIMVASTATIN 10/40MG 1 TAB TAB PO SCH (19:55)
[2019-10-26] MEDS: POTASSIUM CHLORIDE 20 MEQ TABCR PO SCH (03:00)
[2019-10-26 06:43] LABS: Hematocrit (blood only) 37.8 % (42-52); Hemoglobin 12.4 g/dL (14.0-18.0); Mean Corpuscular Hemoglobin 30.3 pg (25-34); Mean Corpuscular Hgb Conc 32.8 g/dL (32-36); Mean Corpuscular Volume 92.4 fL (80-100); RDW Coefficient of Variation 13.8 % (11.5-14.5); RDW Standard Deviation 46.8 fL (36.4-46.3); Red Blood Count 4.09 M/uL (4.7-6.1); White Blood Count 7.97 K/uL (4.8-10.8)
[2019-10-26 06:55] LABS: Mean Platelet Volume 11.6 fL (7.4-10.4); Platelet Count 92 K/uL (130-400)
[2019-10-26 07:05] LABS: Basophils # (auto) 0.01 K/uL (0-0.2); Basophils % (auto) 0.1 %; Eosinophils # (auto) 0.09 K/uL (0-0.5); Eosinophils % (auto) 1.1 %; Immature Granulocytes # (auto) 0.02 K/uL (0.00-0.02); Immature Granulocytes % (auto) 0.3 %; Lymphocytes % (auto) 6.3 %; Monocytes # (auto) 0.79 K/uL (0.11-0.59); Monocytes % (auto) 9.9 %; Neutrophils # (auto) 6.56 K/uL (1.4-6.5); Neutrophils % (auto) 82.3 %
[2019-10-26 07:30] LABS: Albumin Level 3.2 gm/dl (3.4-5.0); BUN Creatinine Ratio 20.3 (10-20); Calcium 8.9 mg/dl (8.5-10.1); Creatinine Clr Calc Pharmacy 77.3 ml/min; Est GFR (African American) 85.8; Est GFR (Non-African American) 74.1; Magnesium 2.2 mg/dl (1.8-2.4); Potassium 3.3 mmol/L (3.5-5.1)
[2019-10-26 07:33] LABS: Albumin Globulin Ratio 0.8 (0.9-2); Bilirubin,Total 1.2 mg/dl (0.2-1); Globulin 3.8 gm/dl (2.5-4.0)
[2019-10-26] MEDS: METOPROLOL TARTRATE 25 MG TAB PO SCH ×2 (08:37→19:29)
[2019-10-26] MEDS: MULTIVITAMIN TAB PO SCH (08:37)
[2019-10-26] MEDS: CHOLECALCIFEROL 1,000 UNITS 25 MCG TAB PO SCH (08:37)
[2019-10-26] MEDS: CITALOPRAM 20 MG TAB PO SCH (08:37)
[2019-10-26] MEDS: ISOSORBIDE MONO EXTENDED REL 60 MG TABCR PO SCH (08:37)
[2019-10-26] MEDS: FUROSEMIDE 40 MG in SYRINGE 0 ML IV SCH (08:37)
[2019-10-26] MEDS: HEPARIN SOD 5,000 UNIT/0.5 ML VIAL SQ SCH ×2 (08:38→22:04)
[2019-10-26] MEDS: ASPIRIN 81 MG ECTAB PO SCH (08:38)
[2019-10-26] MEDS: guaiFENesin 600 MG TABCR PO SCH ×2 (08:38→19:35)
--- NOTE | 2019-10-26 08:38 | Cardiology Progress Note ---
Date of Service October 26, 2019 Assessment & Plan (1) Upper respiratory infection: 2. Acute on chronic systolic heart failure 3. Moderate to severe LV dysfunction 4. Multivessel coronary artery disease 5. History of AV block post dual-chamber pacemaker 6. Thrombocytopenia 7. Hypertension Breathing comfortably No accurate I/Os but weights down. Well perfused with minimal residual congestion on exam Trops x4 negative -- Additional 40 IV lasix today --> transition to PO lasix tomorrow. -- Up walking today Reviewed telemetry with Dr. Patterson. PMT felt unlikely. May be a candidate for INSURANCE COMPLIANCE ANALYST-D. Will arrange for outpatient follow-up with him when has recovered from acute illness. Continue current beta-alyssa. Resume Imdur as BP allows Continue aspirin, statin Admission and Anticipated Discharge Date Admission Date: October 25, 2019 Subjective Reports feeling better this AM. No shortness of breath while at rest. No chest pain. No fevers or chills. No other new complaints. Tele reviewed -- primarily paced rhythm. few PVCs Review of Systems Review of Systems: All systems reviewed & are unremarkable except as noted in HPI & below Physical Exam Physical Exam: General: Comfortable, no acute distress Neck: No JVD. Lungs: Lungs clear Cardiac: Regular rate and rhythm Vascular: 2+ radial Abdomen: Soft, nontender Extremities: Well perfused, no peripheral edema Skin: No rashes or lesions. Neuro: Nonfocal Psych: Alert, Oriented x2 Results & Data ([facility]) Vital Signs (Past 12 Hours) Vital Signs Temp Pulse Pulse Resp BP Pulse Ox 10/26/19 07:41 98.1 F 63 18 93/54 L 93 10/26/19 03:07 98.2 F 55 L 17 103/54 L 92 10/26/19 00:02 98.6 F 63 17 94/57 L 92 10/25/19 23:09 92 H PG Care Time/CCT Total # of Minutes Spent Total Time Spent with Patient: Total time spent is greater than 50% in coordination of care (as documented) at patient's floor/unit and/or counseling patient: Coding Level of Care Code 29125 Subseq Hosp Care Lvl 3 Diagnoses Upper respiratory infection J06.9
[2019-10-26] MEDS ORDERED: POTASSIUM CHLORIDE 20 MEQ TABCR PO STA (09:07)
--- NOTE | 2019-10-26 10:59 | Electrocardiogram Report ---
Test Reason : Blood Pressure : / mmHG Vent. Rate : 063 BPM Atrial Rate : 063 BPM P-R Int : 212 ms QRS Dur : 200 ms QT Int : 562 ms P-R-T Axes : 001 -47 108 degrees QTc Int : 575 ms Atrial-sensed ventricular-paced rhythm with prolonged AV conduction Abnormal ECG When compared with ECG of 24-OCT-2019 21:17, Vent. rate has decreased BY 20 BPM Confirmed by Cortes Casanova ([id number]) on 10/26/2019 10:59:29 AM Referred By: REFERRED SELF Confirmed By:Cortes Casanova
--- NOTE | 2019-10-26 14:03 | Hospitalist Progress Note ---
Date of Service October 26, 2019 Assessment & Plan (1) CHF (congestive heart failure): Presumed acute on chronic systolic heart failure. Patient reports gradually worsening dyspnea on exertion, though denies orthopnea. Given Lasix 40 mg IV in the ED. - Got Lasix 40 mg IV today. - Cardiology consulted - Continue aspirin, Imdur, beta-alyssa - Follow weights, I&Os -> Weight is down to 96.5 kg today. Net even in the last 24 hours, but I&Os may be off. - Return to PO Lasix. (2) Upper respiratory infection: CXR on 10/23 was negative for focal infection. No other indication of infection. - Continue guaifenesin - Continue DuoNebs PRN (3) CAD (coronary artery disease): Per cardiology note from 09/2019, "[3v]CABG in 2012, prior PCI to RCA. RCA now known to be occluded. Patent grafts 05/2019 but SVG to PLB with disease pre/post-anastomosis." Follows with Dr. Blackwell in cardiology. - As above (4) Essential hypertension: BP is as low as 90/45 today. - As above with medications (5) GERD (gastroesophageal reflux disease): No GERD symptoms. - Nexium 40 mg p.o. daily will be changed to pantoprazole 40 mg p.o. daily (6) COPD (chronic obstructive pulmonary disease): Unclear what role COPD is playing. He reports he was told about this in the past, has had some flares, but does not use any daily inhalers. - Outpatient COPD referral - DuoNebs PRN (7) Depression: Reported feeling depressed due to health issues on 10/24, but happier today. - Continue citalopram 10 mg p.o. every morning (8) H/O atrial flutter: Seen on prior Holters and pacemaker. Presently in an atrially-sensed, ventricularly-paced rhythm. Not on anticoagulation. - Monitor on tele (9) EILEEN on CPAP: - Continue CPAP (hospital vs. home device). (10) DVT prophylaxis: Heparin 5000 units Q12h Admission and Anticipated Discharge Date Admission Date: October 25, 2019 Subjective Doing better today. No major breathing issues overnight. Reports no fevers/chills, chest pain, shortness of breath, abdominal pain, nausea, or vom iting. Physical Exam Constitutional: WD/WN, vitals as above Eyes: EOM intact bilaterally; no conjunctival abnormality ENMT: external ear and nose normal, oropharynx normal Neck: trachea midline, no thyromegaly normal visual inspection Respiratory: no respiratory distress Auscultation: + crackles (Bibasilar) Cardiovascular: RRR, no murmur, no edema Gastrointestinal (Abdomen): Inspection/Auscultation: abdomen normal to inspection; abdomen not distended Musculoskeletal: no cyanosis or clubbing, extremities motor strength 5/5 Skin: no rashes, warm and dry Neurologic: moves all extremities and awake Psychiatric: Orientation: alert, oriented to person and cooperative Results & Data ([facility]) Vital Signs (Past 12 Hours) Vital Signs Temp Pulse Pulse Resp BP Pulse Ox 10/26/19 11:55 36.7 C 77 18 89/46 L 95 10/26/19 08:00 88 10/26/19 07:41 36.7 C 63 18 93/54 L 93 10/26/19 03:07 36.8 C 55 L 17 103/54 L 92 PG Care Time/CCT Total # of Minutes Spent Total Time Spent with Patient: Total time spent is greater than 50% in coordination of care (as documented) at patient's floor/unit and/or counseling patient: Coding Level of Care Code 25867 Subseq Hosp Care Lvl 2 Diagnoses CHF (congestive heart failure) I50.9 Heart failure chronicity: unspecified Heart failure type: unspecified Upper respiratory infection J06.9 CAD (coronary artery disease) I25.119 Coronary Disease-Associated Artery/Lesion type: jena artery [place] vs. transplanted heart: jena heart Associated angina: with unspecified angina Essential hypertension I10 GERD (gastroesophageal reflux disease) K21.9 Esophagitis presence: esophagitis presence not specified COPD (chronic obstructive pulmonary disease) J44.9 COPD type: unspecified COPD Depression F32.9 Depression Type: unspecified H/O atrial flutter Z86.79 EILEEN on CPAP G47.33; Z99.89 DVT prophylaxis Z29.9 (1) CHF (congestive heart failure) Heart failure chronicity: unspecified Heart failure type: unspecified Qualified Code(s): I50.9 - Heart failure, unspecified (2) CAD (coronary artery disease) Coronary Disease-Associated Artery/Lesion type: jena artery [place] vs. transplanted heart: jena heart Associated angina: with unspecified angina Qualified Code(s): I25.119 - Atherosclerotic heart disease of jena coronary artery with unspecified angina pectoris (3) GERD (gastroesophageal reflux disease) Esophagitis presence: esophagitis presence not specified Qualified Code(s): K21.9 - Gastro-esophageal reflux disease without esophagitis (4) COPD (chronic obstructive pulmonary disease) COPD type: unspecified COPD Qualified Code(s): J44.9 - Chronic obstructive pulmonary disease, unspecified (5) Depression Depression Type: unspecified Qualified Code(s): F32.9 - Major depressive diso rder, single episode, unspecified
[2019-10-26] MEDS: EZETIMIBE/SIMVASTATIN 10/40MG 1 TAB TAB PO SCH (19:34)
[2019-10-26] MEDS: PANTOprazole 40 MG TAB PO SCH (19:35)
[2019-10-27 08:20] LABS: Basophils # (auto) 0.03 K/uL (0-0.2); Basophils % (auto) 0.6 %; Eosinophils # (auto) 0.32 K/uL (0-0.5); Eosinophils % (auto) 6.1 %; Hematocrit (blood only) 38.9 % (42-52); Hemoglobin 12.7 g/dL (14.0-18.0); Immature Granulocytes # (auto) 0.01 K/uL (0.00-0.02); Immature Granulocytes % (auto) 0.2 %; Lymphocytes # (auto) 0.67 K/uL (1.2-3.4); Lymphocytes % (auto) 12.8 %; Mean Corpuscular Hemoglobin 30.7 pg (25-34); Mean Corpuscular Hgb Conc 32.6 g/dL (32-36); Mean Platelet Volume 11.4 fL (7.4-10.4); Monocytes # (auto) 0.57 K/uL (0.11-0.59); Monocytes % (auto) 10.9 %; Neutrophils # (auto) 3.65 K/uL (1.4-6.5); Neutrophils % (auto) 69.4 %; Platelet Count 118 K/uL (130-400); RDW Coefficient of Variation 13.6 % (11.5-14.5); RDW Standard Deviation 47.1 fL (36.4-46.3); Red Blood Count 4.14 M/uL (4.7-6.1); White Blood Count 5.25 K/uL (4.8-10.8)
[2019-10-27 08:51] LABS: Albumin Level 3.3 gm/dl (3.4-5.0); BUN Creatinine Ratio 28.9 (10-20); Calcium 9.3 mg/dl (8.5-10.1); Creatinine Clr Calc Pharmacy 80.5 ml/min; Est GFR (African American) 90.3; Est GFR (Non-African American) 77.9; Magnesium 2.3 mg/dl (1.8-2.4); Potassium 3.3 mmol/L (3.5-5.1)
[2019-10-27 08:55] LABS: Albumin Globulin Ratio 0.8 (0.9-2); Bilirubin,Total 0.7 mg/dl (0.2-1); Globulin 4.4 gm/dl (2.5-4.0); Total Protein 7.7 gm/dl (6.4-8.2)
[2019-10-27] MEDS ORDERED: FUROSEMIDE 40 MG TAB PO SCH (09:00)
[2019-10-27] MEDS: METOPROLOL TARTRATE 25 MG TAB PO SCH (09:06)
[2019-10-27] MEDS: MULTIVITAMIN TAB PO SCH (09:06)
[2019-10-27] MEDS: ISOSORBIDE MONO EXTENDED REL 60 MG TABCR PO SCH (09:06)
[2019-10-27] MEDS: ASPIRIN 81 MG ECTAB PO SCH (09:07)
[2019-10-27] MEDS: CITALOPRAM 20 MG TAB PO SCH (09:07)
[2019-10-27] MEDS: guaiFENesin 600 MG TABCR PO SCH (09:08)
[2019-10-27] MEDS: CHOLECALCIFEROL 1,000 UNITS 25 MCG TAB PO SCH (09:08)
[2019-10-27] MEDS: HEPARIN SOD 5,000 UNIT/0.5 ML VIAL SQ SCH (09:12)
--- NOTE | 2019-10-27 09:20 | Cardiology Progress Note ---
Date of Service October 27, 2019 Assessment & Plan (1) Upper respiratory infection: 2. Acute on chronic systolic heart failure 3. Moderate to severe LV dysfunction 4. Multivessel coronary artery disease 5. History of AV block post dual-chamber pacemaker 6. Thrombocytopenia 7. Hypertension Breathing comfortably Well perfused with minimal residual congestion on exam From a cardiac standpoint doing well and okay with discharge today. Home on Lasix 40 mg p.o. daily. Continue home antihypertensives/antianginal therapy Continue aspirin, statin We will arrange for EP follow-up with Dr. Patterson to discuss possible EQUIPMENT OPERATOR WAREHOUSE-D Will also see heart failure team. Admission and Anticipated Discharge Date Admission Date: October 25, 2019 Subjective Feeling better than admission this morning. Denies any chest pain. Still with some shortness of breath with modest exertion. No other new complaints. Telemetry reviewedsinus, paced rhythm, occasional PVCs. Review of Systems Review of Systems: All systems reviewed & are unremarkable except as noted in HPI & below Physical Exam Physical Exam: General: Comfortable, no acute distress Neck: No JVD. Lungs: Lungs clear Cardiac: Regular rate and rhythm Vascular: 2+ radial Abdomen: Soft, nontender Extremities: Well perfused, no peripheral edema Skin: No rashes or lesions. Neuro: Nonfocal Psych: Alert, Oriented x2 Results & Data ([facility]) Vital Signs (Past 12 Hours) Vital Signs Temp Pulse Pulse Resp BP BP Pulse Ox 10/27/19 07:34 97.7 F 68 18 123/73 93 10/27/19 03:08 98.1 F 70 17 103/62 94 10/26/19 23:20 97.7 F 70 19 119/69 93 10/26/19 22:50 76 16 96 PG Care Time/CCT Total # of Minutes Spent Total Time Spent with Patient: Total time spent is greater than 50% in coordination of care (as documented) at patient's floor/unit and/or counseling patient: Coding Level of Care Code 23060 Subseq Hosp Care Lvl 2 Diagnoses Upper respiratory infection J06.9
[2019-10-27] MEDS ORDERED: POTASSIUM CHLORIDE 20 MEQ TABCR PO STA (09:22)
--- NOTE | 2019-10-27 15:59 | Electrocardiogram Report ---
Test Reason : Blood Pressure : / mmHG Vent. Rate : 068 BPM Atrial Rate : 068 BPM P-R Int : 206 ms QRS Dur : 202 ms QT Int : 518 ms P-R-T Axes : -09 -45 104 degrees QTc Int : 550 ms Atrial-sensed ventricular-paced rhythm Abnormal ECG When compared with ECG of 26-OCT-2019 06:41, Vent. rate has increased BY 5 BPM Confirmed by Cortes Casanova ([id number]) on 10/27/2019 3:58:54 PM Referred By: REFERRED SELF Confirmed By:Cortes Casanova
--- NOTE | 2019-10-27 16:45 | Discharge Summary ---
Date of Service October 27, 2019 Admission HPI Per Admitting Provider The patient is a 79-year-old male with a past medical history including GERD, CABG, CHF, hearing loss, near syncope, prostate cancer, UTI, cholecystitis, obstructive jaundice, pancreatitis, CAD, atrial flutter, thrombocytopenia, EILEEN on CPAP, hypertension, and STEMI, depression and status post cardiac pacemaker. He presents to the emergency department with persistent shortness of breath over the past several days to week, and a chronic cough that was become more productive of yellow mucus over the past 24 hours or so. He denies any recent travels or sick exposures. Principal Diagnosis Acute diastolic CHF exacerbation Discharge Exam Constitutional WD/WN, vitals as above Eyes EOM intact bilaterally; no conjunctival abnormality ENMT external ear and nose normal, oropharynx normal Neck trachea midline, no thyromegaly normal visual inspection Respiratory no respiratory distress Auscultation: + crackles (Bibasilar) Cardiovascular RRR, no murmur, no edema Gastrointestinal (Abdomen) Inspection/Auscultation: abdomen normal to inspection; abdomen not distended Musculoskeletal no cyanosis or clubbing, extremities motor strength 5/5 Skin no rashes, warm and dry Neurologic moves all extremities and awake Psychiatric Orientation: alert, oriented to person and cooperative Discharge Data Allergies Allergy/AdvReac Type Severity Reaction Status Date / Time Sulfa (Sulfonamide Allergy Mild rash Verified 10/24/19 22:14 Antibiotics) olmesartan Allergy Verified 10/24/19 22:14 metoclopramide AdvReac Intermediate Depression Verified 10/24/19 22:14 oxycodone [From OxyContin] AdvReac Intermediate Hallucinati Verified 10/24/19 22:14 ons ciprofloxacin [From Cipro] AdvReac Mild see notes Verified 10/24/19 22:14 lisinopril AdvReac Mild cough Verified 10/24/19 22:14 Consultations 10/25/19 00:51 ED Decision to Admit Stat 10/25/19 03:48 Consult Cardiology Routine Consult Case Management - Discharge Planning Routine 10/26/19 14:05 [facility] COPD/Pnx Program Referral Routine Hospital Course (1) CHF (congestive heart failure): Presumed acute on chronic systolic heart failure. Patient reports gradually worsening dyspnea on exertion, though denies orthopnea. Given Lasix 40 mg IV in the ED. - Continued aspirin, Imdur, beta-alyssa - Baseline weight is around 212 lbs. He was told to check this with his home scale to stay consistent. - Discharged on Lasix 40mg PO daily with Heart Failure follow up. (2) Upper respiratory infection: CXR on 10/23 was negative for focal infection. No other indication of infection. - Continue guaifenesin - Continue DuoNebs PRN (3) CAD (coronary artery disease): Per cardiology note from 09/2019, "[3v]CABG in 2012, prior PCI to RCA. RCA now known to be occluded. Patent grafts 05/2019 but SVG to PLB with disease pre/post-anastomosis." Follows with Dr. Blackwell in cardiology. - As above (4) Essential hypertension: BP was as low as 90/45 though he was asymptomatic. - As above with medications (5) GERD (gastroesophageal reflux disease): No GERD symptoms. - Nexium 40 mg p.o. daily (6) COPD (chronic obstructive pulmonary disease): Unclear what role COPD is playing. He reports he was told about this in the past, has had some flares, but does not use any daily inhalers. - Outpatient COPD referral -> Will see Yi Paulino in the office. - DuoNebs PRN (7) Depression: Reported feeling depressed due to health issues on 10/24, but happier by discharge. - Continue citalopram 10 mg p.o. every morning (8) H/O atrial flutter: Seen on prior Holters and pacemaker. Presently in an atrially-sensed, ventricularly-paced rhythm. Not on anticoagulation. - Monitor on tele (9) EILEEN on CPAP: - Continue CPAP (hospital vs. home device). (10) DVT prophylaxis: Heparin 5000 units Q12h Total Time Total Time Spent Total Time Spent (In Minutes): 35 Discharge Plan Discharge Items Patient Disposition: Home - Self-Care Reason For Visit: CHF, URI Discharge Diagnosis: Mild diastolic heart failure exacerbation Activity: Resume your previous activity Non-emergency contact: Primary Care Provider and Net Lead Architect Call non-emergency contact if: you have any medication questions, your symptoms worsen and your temperature is above 101 Follow-up/Referrals: Dr. Kenny Correia [Other] - 11/03/19 2:45 pm (Please, follow up at [facility] [place] Office with Dr. Kenny Correia (luncheonette operator) on FridayNovember 02 at 3:00 pm (arrive 2:45 pm). *The office is located next to [address]. If you need to change this appointment, call the office at [phone].) Surya Blackwell MD [Physician] - 11/09/19 2:30 pm (Please see Dr. Blackwell at your normally scheduled appointment.) Marcela Lanier PA-C [Physician Hospital Corpsman] - 11/01/19 10:30 am (Congestive Heart Failure Program Appointment Information Early follow up is essential to managing your heart failure. An appointment has been scheduled for you with the [facility] Heart Failure Program within 7 days of discharge. Anticipate this visit to be 30-60 minutes long. Please expect a safety specialist phone call from one of our nurses approximately 48 hours from discharge. They will also be placing an order for lab work to be completed 1-2 days prior to your heart failure follow up appointment. Please be sure to have this done so we can go over the results when you come in. Office Location The cardiology office building is located in front of the hospital at [address] Bring the following with you to your follow-up doctor appointments: Please bring your daily weight log any discharge paperwork all of your medication bottles with you to this visit. ) Trae Garza [Primary Care Provider] - 11/01/19 2:15 pm Diet: Heart Healthy and Low Sodium (2gm) Addtl Attending Provider Instructions: You were admitted with shortness of breath that we believe was due to some extra fluid on the lungs, possibly made worse by a viral illness. We gave you IV Lasix that helped taked fluid off. By discharge you are breathing near your baseline. Your weight in the hospital is 212 lbs. Please go home today and weigh yourself on your usual scale in your usual clothes. This is your new baseline weight and the weight you should aim to stay at. Please follow up with Marcela Lanier in the heart failure clinic to help maintain your weight and keep your breathing steady. Pending Studies at Discharge: No Stand-Alone Forms: My [employer], Smoking Cessation Medications and DC Order Prescriptions: New furosemide 40 mg tablet 40 mg PO DAILY Qty: 30 RF: 0 Continued metoprolol tartrate 50 mg tablet 75 mg PO BID Qty: 270 RF: 1 nitroglycerin 0.4 mg tablet, sublingual 0.4 mg SL Q5M PRN (Reason: chest pain) Qty: 30 RF: 3 esomeprazole magnesium [Nexium] 40 mg capsule,delayed release(DR/EC) 40 mg PO QPM RF: 0 multivitamin [Multiple Vitamins] Tablet 1 tab PO QAM RF: 0 citalopram 10 mg Tablet 10 mg PO QAM RF: 0 aspirin [Aspir-81] 81 mg Tablet,Delayed Release (Dr/Ec) 81 mg PO QAM RF: 0 ezetimibe-simvastatin [Vytorin 10-40] 10-40 mg Tablet 1 tab PO HS RF: 0 cholecalciferol (vitamin D3) [Vitamin D3] 2,000 unit Capsule 2,000 unit PO QAM RF: 0 isosorbide mononitrate 120 mg tablet extended release 24 hr 120 mg PO QAM RF: 0 Discharge Orders: Discharge Order (Routine); Ordered 10/27/19 Ordered By: Zhang Valera Admission Data Admit Date/Time: 10/25/19 02:40 Attending Provider: Zhang Valera Admit Provider: You Smith Primary Care Provider: Trae Garza Other Providers: Surya Blackwell ; Zhang Valera ; Yi Paulino Other Interventions: Discharge Summary Assessment (RN) Last Done: 10/27/19 12:46 DC Date/Time DO NOT enter until pt leaves facility: 10/27/19 13:37 Coding Level of Care Code D/C Day Management >30 mins Diagnoses CHF (congestive heart failure) I50.9 Heart failure chronicity: unspecified Heart failure type: unspecified Upper respiratory infection J06.9 CAD (coronary artery disease) I25.119 Coronary Disease-Associated Artery/Lesion type: [place] artery [place] vs. transplanted heart: [place] heart Associated angina: with unspecified angina Essential hypertension I10 GERD (gastroesophageal reflux disease) K21.9 Esophagitis presence: esophagitis presence not specified COPD (chronic obstructive pulmonary disease) J44.9 COPD type: unspecified COPD Depression F32.9 Depression Type: unspecified H/O atrial flutter Z86.79 EILEEN on CPAP G47.33; Z99.89 DVT prophylaxis Z29.9
--- NOTE | 2019-10-28 09:23 | Coding Query ---
CODING QUERY To promote full compliance with coding requirements relating to patient care, provider participation is requested in all cases of design engineering technician uncertainty. Please assist us with the question(s) below: Coding Question(s): The Discharge Summary Principal Diagnosis area documents Acute Diastolic CHF Exacerbation, however, there is documentation in the Progress Notes and Cardiology Consultation and on the Discharge Summary under Hospital Course of presumed Acute on Chronic Systolic Heart Failure. Please, clarify below, in your clinical opinion. ( x ) Acute on Chronic Systolic CHF ( ) Acute Diastolic CHF Exacerbation ( ) Other: Please Specify Physician's Response(s): Thank you Marielos Zuniga Principal Diagnosis: "that condition established after study, to be chiefly responsible for occasioning the admission of the patient to the hospital for care." Co-Existing Principal Diagnosis: "when two or more diagnoses equally meet the criteria for principal diagnosis as determined by the circumstances of admission, diagnostic work up, and/or therapy provided, and the Alphabetic Index, Tabular List, or another coding guideline does not provide sequencing direction, any one of the diagnoses may be sequenced first." "When the physician has documented what appears to be a current diagnosis in the body of the record, but has not included the diagnosis in the final diagnostic statement, the physician should be asked whether the diagnosis should be added." (Source Coding [facility] 2 QTR90. p3-4) JENNIFER
== END 2019-10-27 13:37 | disposition home or self-care (01) ==
LOC: ED 21:00 → 2S 10-25 02:40 → SUATTDRO 10-25 02:40 → INTOOBSV 10-25 02:40 → 2S 10-25 03:23

== ENCOUNTER 2019-12-07 09:38 | Observation (INO) ==
[~2019-12-07 09:38] MED LIST changes: -ACET-1256 PO; -ASPI81TA28 PO; +BACITRACIN INJ 50,000 UNIT VIAL ONE; +BACITRACIN OINT 0.9 GM PKT ONE; -CHOL2000 PO; -CITA10TA8 PO; -DOXY100C76 PO; -DTR2 PO; -HYDR25TA4 PO; +LIDOCAINE HCL 1% 20 ML VIAL ONE; -MULT-506 PO; -NXM/40 PO; -REGADENOSON 0.4 MG/5 ML SYR ONE; -TADA5TAB11 PO; -TPRSR/50 PO; -VYT1040 PO
[2019-12-07] MEDS ORDERED: MIDAZOLAM HCL 5 MG/ML 1 ML VIAL ONE ×2 (10:08→13:08)
[2019-12-07] MEDS ORDERED: fentaNYL citrate 100 MCG/2 ML VIAL ONE ×3 (10:08→14:06)
[2019-12-07] MEDS ORDERED: CEFAZOLIN 250 MG/ML 1 GM VIAL ONE (10:08)
--- NOTE | 2019-12-07 11:27 | History & Physical Bridge Note ---
Date of Service December 07, 2019 History & Physical Bridge Note I have examined the patient, reviewed the History & Physical and in the interval since the performance of the History & Physical I have noted the following changes of clinical significance: no changes noted. I reviewed the indications, procedure, risks and alternatives of pacemaker upgrade to a biventricular device with him and he understands and agrees to proceed. Consent obtained. I discussed sedation with him and he agrees. Consent obtained.
--- NOTE | 2019-12-07 11:29 | Pre Anesthesia Assessment ---
Date of Service December 07, 2019 Pre Sedation Assessment Vital Signs Temp Pulse Resp BP Pulse Ox 12/07/19 09:50 36.6 C 86 20 144/87 H 99 Cardiovascular RRR, no murmur, no edema Respiratory normal respiratory effort, lungs clear to auscultation Pre-Sedation Airway Assessment Smoking Status: Former smoker Hx Sleep Apnea: Yes Hx Difficult Intubation: No Short, Thick Neck: No Thyromental Distance: > or= 3.5 Finger Breadths Oral Cavity: + Dentures Mallampati Class: III ASA: ASA2 NPO Status Date of Last Intake of Fluids: 12/06/19 Date of Last Intake of Solid Food: 12/06/19 Procedure Planning Contraindications for Sedation: none Current Medications Reviewed: Yes Notes The planned sedation has been discussed with the patient. Informed Consent was obtained. I have identified the patient, determined the appropriateness of sedation and have assessed the patient immediately prior to the procedure. All medicine(s) and interventions are by my order.
[2019-12-07] MEDS ORDERED: BACITRACIN OINT 0.9 GM PKT ONE ×2 (14:56→15:18)
[2019-12-07] MEDS ORDERED: ACETAMINOPHEN W/CODEINE #3 1 TAB PO PRN (15:15)
--- NOTE | 2019-12-07 15:15 | Electrophysiology Report ---
Date of Service December 07, 2019 Electrophysiology Procedure Electrophysiology Procedure Report Preoperative diagnosis: Cardiomyopathy Dual-chamber pacemaker Postoperative diagnosis: Same Procedure: Left subclavian venogram Coronary sinus angiogram Left ventricular lead implantation Dual-chamber pacemaker explantation Biventricular pacemaker implantation Surgeon: Scott Patterson MD Estimated blood loss: 30 cc Complications: None Disposition: Sequins Spooler recovery Procedure details: Dye was injected the left arm IV site to opacify the left subclavian vein. The subclavian vein was identified and found to be free of obstruction. Left axillary venipuncture was performed and a guidewire placed through left subclavian vein into the right atrium. A 2 cm incision was made through the old implant scar and carried down to the pectoralis fascia. A Graham coronary sinus sheath was advanced to position in the right atrium. The Graham catheter was not the proper shape for the coronary sinus, therefore this was exchanged for a 10 Tamazight introducer and a guiding catheter was advanced through the introducer. Coronary sinus access was difficult, but ultimately a wire was advanced into the coronary. The sheath system was advanced into the coronary sinus. Dye was injected in the coronary sinus in various projections to identify the venous branches. A good branch was identified and a 0.014 inch guidewire was advanced into the branch. A left ventricular lead was advanced over the guidewire into good position. The pacing threshold was evaluated in this position as noted on the implant data sheet. The sheath system was then removed from the lead and the lead was attached to the anterior pectoral fascia using 2 sutures of 2-0 silk around the lead collar. The pacemaker pocket was opened by further anesthetizing along the original implant site and incision was made through the scar and carried down to the pacemaker generator. The generator was dissected free of tissue and explanted. The leads were disconnected from the generator and a new biventricular pacemaker was attached to these leads as well as the coronary sinus lead. The pacemaker was placed in the pocket with the leads coiled beneath it and the incision was closed with a running double subcutaneous closure of 3-0 Vicryl followed by running subcuticular skin closure of 4-0 Vicryl. Bacitracin ointment was placed on incision and a dressing applied. [facility] Electrophysiology codes Indication for Procedure (1) Cardiomyopathy: (2) Hx of cardiac pacemaker: Pacing Procedure 1: Pacin BiV electrode only - stand alone procedure Procedure 2: Pacin Dual Pacemaker replacement Miscellaneous Procedures Procedure 1: EP Miscellaneous: 20302-37 Vengraphy, extremity Procedure 2: EP Miscellaneous: 72211 Contrast injection for venography Procedure 3: EP Miscellaneous: 03540-42 Venography, CS supevsion/interp PG Moderate Sedation Codes Moderate Sedation Codes Procedure 1: Sedation/Anesthesia: 27799 Mod Sedation by the same physician;Init15 Min Child Age 5 & Up Procedure 2: Sedation/Anesthesia: 13820 Mod Sedation by the same physician; Ea [id number] Minutes
[2019-12-07] MEDS ORDERED: NITROGLYCERIN SL 0.4 MG/TAB TAB SL PRN (15:17)
[2019-12-07] MEDS: SACUBITRIL-VALSARTAN 24-26 MG TAB PO SCH (20:52)
[2019-12-07] MEDS ORDERED: PANTOprazole 40 MG TAB PO SCH (21:00)
[2019-12-07] MEDS ORDERED: EZETIMIBE/SIMVASTATIN 10/40MG 1 TAB TAB PO SCH (21:00)
[2019-12-07] MEDS: ACETAMINOPHEN 325 MG TAB PO PRN (22:44)
[2019-12-08] MEDS: ACETAMINOPHEN 325 MG TAB PO PRN (03:19)
[2019-12-08 06:20] LABS: BUN Creatinine Ratio 22.4 (10-20); Calcium 9.1 mg/dl (8.5-10.1); Creatinine Clr Calc Pharmacy 73.7 ml/min; Est GFR (African American) 78.1; Est GFR (Non-African American) 67.4; Potassium 3.6 mmol/L (3.5-5.1)
[2019-12-08] MEDS: SACUBITRIL-VALSARTAN 24-26 MG TAB PO SCH (07:35)
--- NOTE | 2019-12-08 07:40 | XRay Report ---
XR chest 2V PA/lateral HISTORY: 79 years-old Male EXACT TIME ORDERED Evaluate for pneumothorax and l [subclavian pacer COMPARISON: Chest radiograph 10/24/2019 TECHNIQUE: PA and lateral views of the chest FINDINGS: Status post placement of a left subclavian dual lead pacer with leads overlying the expected location s of the right atrium, right and left ventricles. The lateral view is limited secondary to upper extr emity positioning. The leads appear to be intact. Calcified plaque of the thoracic aortic arch. There is no postprocedural pneumothorax identified. Cardiomegaly with prior median sternotomy. Chronic ginger nting of the costophrenic angles. The lung odell appear clear. Hyperinflation. Degenerative changes of the spine and shoulders. IMPRESSION: 1. Status post placement of a left subclavian pacer. No postprocedural pneumothorax. 2. Cardiomegaly without overt pulmonary edema. ACT 112: Negative or not required by law. The above report was generated using voice recognition software. It may contain grammatical, syntax o r spelling errors. Electronically signed by: Armando Willard M.D. 12/08/2019 7:38 AM
--- NOTE | 2019-12-08 07:57 | Post Anesthesia Assessment ---
Date of Service December 07, 2019 Post Sedation Assessment Vital Signs Temp Pulse Pulse Resp BP Pulse Ox 12/08/19 07:00 36.6 C 60 18 124/69 95 12/08/19 04:00 36.6 C 60 18 133/70 96 12/08/19 00:00 36.7 C 63 18 112/69 95 12/07/19 20:48 36.8 C 62 113/70 97 12/07/19 19:08 36.4 C L 62 20 99/62 L 96 12/07/19 15:40 64 20 130/81 95 12/07/19 15:30 70 17 125/88 100 12/07/19 15:20 65 17 147/78 H 97 12/07/19 15:07 82 17 152/88 H 95 12/07/19 09:50 36.6 C 86 20 144/87 H 99 Recovery Score Activity: Moves 4 extremities Respiration: Deep Breath/Cough Circulation: +/-20% PreAnes Value Consciousness: Fully Awake Oxygen Saturation: > 92% On Room Air Post Anesthesia Score: 10 Discharge Sedation Level of Care: Fast Track Phase II Post Sedation Plan On clinical assessment, the patient appears to have tolerated the sedation without complications. Patient is recovering as anticipated. Patient will continue to be monitored by nursing and may be discharged when sedation discharge criteria are met per below protocol. Upon Completions of procedure up to 15 minutes continue every 5 minute vital signs and the P.A.R. score; then discharge to a Phase I or Fast Track to Phase II per the following guidelines: * Discharge Patient to appropriate Phase II area if PAR is 8 or greater or return to pre- procedure baseline. The post - procedure orders will be as directed. * If PAR score is less than 8 or not return to pre-procedure baseline then patient will follow Phase I monitoring till PAR is reached for Phase II. The Phase I may be done in procedure room or may call to secure a Phase I area. * If naloxone or flumazenil are used for reversal, hold in Phase I for continued monitoring from when last reversal dose was given for a minimum of 60 minutes or longer pending the nurse and/or physician discretion of patient condition before discharge to Phase II. Please call the Sedation Physician to re-evaluate and complete post-note for discharge to Phase II area. Do NOT discharge from procedure sedation or Phase 1 until post- sedation evaluation note is complete by procedure /sedation MD Sedation Discharge Instructions to be given to the patient at discharge to home.
--- NOTE | 2019-12-08 08:24 | Cardiology Progress Note ---
Date of Service December 08, 2019 Assessment & Plan (1) Status post placement of cardiac pacemaker: He is doing well today, he does not have discomfort and the site looks good. His chest x-ray shows stable lead position and measurements are stable although not ideal. He is stable for discharge. I have arranged follow-up for him on Friday. Admission and Anticipated Discharge Date Admission Date: December 07, 2019 Subjective He is having a little bit of soreness at his site, otherwise no complaints. This history was taken by Dr. Marco Garcia who saw him. Physical Exam Physical Exam: The site is ecchymotic but there is no bleeding, the dressing was clean and dry. This information was obtained by the nurse who change the dressing and saw him. Results & Data ([facility]) Vital Signs (Past 12 Hours) Vital Signs Temp Pulse Pulse Pulse Resp BP Pulse Ox 12/08/19 07:00 36.6 C 85 60 18 124/69 95 12/08/19 04:00 36.6 C 60 18 133/70 96 12/08/19 00:00 36.7 C 63 18 112/69 95 12/07/19 20:48 36.8 C 62 113/70 97 Laboratory Results Comprehensive Metabolic Panel 12/08/19 Range/Units 05:27 Sodium 141 (136-145) mmol/L Potassium 3.6 (3.5-5.1) mmol/L Chloride 107 (98-107) mmol/L Carbon Dioxide 31 (21-32) mmol/L BUN 24 H (7-18) mg/dl Creatinine 1.06 (0.6-1.4) mg/dl Glucose 99 (70-99) mg/dl Calcium 9.1 (8.5-10.1) mg/dl Intake and Output 12/07/19 12/08/19 12/08/19 22:59 06:59 14:59 Intake Total 275 / 475 200 / 475 Output Total 150 / 150 Balance 125 / 325 200 / 325 Intake: Oral 275 / 475 200 / 475 Output: Urine 150 / 150 Stool 0 / 0 Emesis 0 / 0 Other: # Unmeasured Voids 1 Diagnostic Findings ECG postop: AV sequential pacing with an appropriate biventricular paced complex Telemetry: Normal pacing function Chest x-ray: Stable lead position, no pneumothorax Pacemaker evaluation: Stable pacing and sensing characteristics in the LV lead, although not ideal. PG Care Time/CCT Total # of Minutes Spent Total Time Spent with Patient: Total time spent is greater than 50% in coordi nation of care (as documented) at patient's floor/unit and/or counseling patient: Coding Level of Care Code 85359 Post Operative Follow-Up Diagnoses Status post placement of cardiac pacemaker Z95.0 CPT Codes Pacemaker Multi Lead Programming - 25025 ([id number])
[2019-12-08] MEDS ORDERED: ISOSORBIDE MONO EXTENDED REL 60 MG TABCR PO SCH (09:00)
[2019-12-08] MEDS ORDERED: ASPIRIN 81 MG ECTAB PO SCH (09:00)
[2019-12-08] MEDS ORDERED: FUROSEMIDE 40 MG TAB PO SCH (09:00)
[2019-12-08] MEDS ORDERED: METOPROLOL SUCC 50MG EXT REL TAB PO SCH (09:00)
--- NOTE | 2019-12-08 14:13 | Electrocardiogram Report ---
Test Reason : Blood Pressure : / mmHG Vent. Rate : 060 BPM Atrial Rate : 060 BPM P-R Int : 134 ms QRS Dur : 150 ms QT Int : 480 ms P-R-T Axes : 000 -41 113 degrees QTc Int : 480 ms AV dual-paced rhythm Abnormal ECG When compared with ECG of 27-OCT-2019 06:34, Vent. rate has decreased BY 8 BPM Atrial pacing is now present Confirmed by Gael Garcia ([id number]) on 12/08/2019 2:13:08 PM Referred By: Scott Patterson Confirmed By:Gael Garcia
--- NOTE | 2019-12-09 09:29 | Discharge Summary ---
Date of Service December 08, 2019 Admission HPI Per Admitting Provider This is a 79-year-old male with a history of coronary artery disease, peripheral arterial disease, mesenteric artery stenosis, hypertension, hyperlipidemia, COPD and obstructive sleep apnea as well as syncope and bradycardia for which he had a pacemaker implanted. His coronary artery disease history includes PCI of his right coronary artery in 2009 and subsequently right coronary artery perforation 2012 where he required emergency bypass surgery with a ROBERTO to the LAD, saphenous vein graft to the posterior lateral branch and saphenous vein graft to the ramus intermedius. This was performed at [facility]. He did have exercise- induced symptoms and an abnormal nuclear stress test therefore repeat catheterization in 2018 at [facility] showed his grafts to be patent and test stable [place] vessel disease. He presented with syncope in 2018, likely he had other episodes of syncope although he minimizes his symptoms, and was having difficulty with exertion as well as intermittent lightheadedness. He was noted to be bradycardic in the emergency room at 40 bpm and what appeared to be 2-1 AV block as well as having a right bundle branch block pattern. A Lyme titer was negative and therefore he underwent dual-chamber pacemaker implantation on October 06, 2017. At that time his left ventricular function was normal. More recently he has been having increasing exertional symptoms. In April 2019 he was hospitalized with chest discomfort and a mild troponin elevation, he was transferred to [facility] catheterization was again unchanged from prior. He appears now to have progressive left ventricular dysfunction by echocardiography with an ejection fraction of 35 to 40% on October 25, 2019. 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 He has also had episodes of atrial atrial flutter and tachycardia identified on pacemaker monitoring as well as on Holter monitoring starting in 2018. He has been having worsening of chest discomfort and shortness of breath daily in the morning, not necessarily exertional but it appears somewhat related to exertion. He does have periods of presyncope which are ill-defined. In general he feels that he is having progressive worsening in his symptoms. He does not have a lot of stamina and cannot perform strenuous activity. He has had no syncope. With his ejection fraction falling to the 35 to 40% range I wanted to try to optimize his medical therapy and we therefore tried to titrate his beta-alyssa and he is also on Entresto. He has a lot of difficulty with symptomatic hypotension, including presyncope, and I had increased his metoprolol succinate to 200 mg daily November 22, 2019 but very quickly he had to reduce it to 100 mg daily. He does have Entresto 24/26 mg, however he could not even tolerate that starting dose due to hypotension and now takes half a tablet twice a day. He continues to be very fatigued and wants to do more than he is able to, he continues to have daily chest discomfort always associated with a headache. His tells me this is almost always just in the morning, although on rare occasions he will have another episode later in the day. He takes nitroglycerin for it. It is not necessarily related to exertion. She has been monitoring blood pressure and is often in the range of 80/60 and he does have lightheadedness and difficulty when his blood pressure drops. He has no palpitations. Admission Exam Per Admitting Provider Constitutional: Alert, cooperative and in no distress. HEENT: Unremarkable Neck: No jugular venous distention, carotid pulses are normal and equal bilaterally without bruits. Pulmonary: Clear to auscultation bilaterally. Cardiac: Regular rhythm with no murmur, gallop or rub. Abdomen: Soft, nontender with normal bowel sounds. Extremities: No edema. Distal pulses intact. Neurologic: No focal findings. Gait is steady. Skin: The device site is well-healed without erythema, swelling or tenderness. No rash, ecchymoses or petechiae. Principal Diagnosis Pacemaker induced cardiomyopathy Discharge Exam The pacemaker site is clean and dry, there is some ecchymosis but no swelling and no discharge on the dressing. Discharge Data Allergies Allergy/AdvReac Type Severity Reaction Status Date / Time Sulfa (Sulfonamide Allergy Mild rash Verified 12/06/19 11:45 Antibiotics) olmesartan Allergy Verified 12/06/19 11:45 metoclopramide AdvReac Intermediate Depression Verified 12/06/19 11:45 oxycodone [From OxyContin] AdvReac Intermediate Hallucinati Verified 12/06/19 11:45 ons ciprofloxacin [From Cipro] AdvReac Mild see notes Verified 12/06/19 11:45 lisinopril AdvReac Mild cough Verified 12/06/19 11:45 Procedures Performed Operation Date: 12/07/19 11:00 Actual Procedures p Upgrade of any system to BIV - Scott Patterson MD Ordered Studies 12/07/19 06:54 CL Cath Imgs for PACS use only Routine 12/07/19 13:00 EP Lab Images for PACS ONCE Hospital Course (1) Status post placement of cardiac pacemaker: Although accessing the coronary sinus was difficult and the target vessels were small we were able to place a small (5 Georgian bipolar rather than a 6 Georgian quadripolar) lead in a good position although not placed distally in the vessel. Electrical resynchronization looked good on 12-lead, thresholds are elevated but acceptable and diaphragmatic pacing is not present. We did use a fair amount of dye but his creatinine is normal today. He is doing well postop day #1, he does not have significant discomfort and the site looks good. His chest x-ray shows stable lead position and measurements are stable although not ideal. He is stable for discharge. I have arranged follow-up for him on Friday. Total Time Total Time Spent Total Time Spent (In Minutes): 20 Total Time Includes: Discharge Planning, Medication Reconciliation and Communication With Other Providers Discharge Plan Discharge Items Patient Disposition: Home - Self-Care Reason For Visit: PACER UPGRADE TO BIV Discharge Diagnosis: Upgrade of dual-chamber pacemaker to a biventricular pacemaker Activity: Per Instructions section Bathing: Keep incision dry Driving/Machine Use: No limitations Non-emergency contact: Primary Care Provider Call non-emergency contact if: you have any medication questions Follow-up/Referrals: Scott Patterson MD [Physician] - 12/10/19 10:00 am Trae Garza [Primary Care Provider] - Diet: Heart Healthy Addtl Attending Provider Instructions: ACTIVITY RECOMMENDATIONS: * Do not raise affected arm over head for 2 weeks. SPECIAL CARE INSTRUCTIONS: * If bleeding occurs, apply direct pressure to area for 5 minutes. * Call your doctor if you have severe pain, fever, drainage or bleeding at site. * Keep dressing on and dry for 48 hours then remove. * Keep any scheduled doctor's appointment. * Implant Card - hand held device with website information given. SKIN IRRITATION: * You may experience some redness and/or swelling in the area where radiation was administered. If any skin irritation occurs, please contact your family physician. FOLLOW UP VISIT: Keep any scheduled doctor appointments. Pending Studies at Discharge: No Stand-Alone Forms: [facility], Smoking Cessation Medications and DC Order Prescriptions: Continued metoprolol succinate 200 mg tablet extended release 24 hr 100 mg PO DAILY Qty: 30 RF: 2 furosemide 40 mg tablet 40 mg PO DAILY Qty: 30 RF: 11 nitroglycerin 0.4 mg tablet, sublingual 0.4 mg SL Q5M PRN (Reason: chest pain) Qty: 30 RF: 3 Entresto 24-26 mg tablet 0.5 tab PO BID Qty: 60 RF: 2 esomeprazole magnesium [Nexium] 40 mg capsule,delayed release(DR/EC) 40 mg PO QPM RF: 0 multivitamin [Multiple Vitamins] Tablet 1 tab PO QAM RF: 0 citalopram 10 mg Tablet 10 mg PO QAM RF: 0 aspirin [Aspir-81] 81 mg Tablet,Delayed Release (Dr/Ec) 81 mg PO QAM RF: 0 ezetimibe-simvastatin [Vytorin 10-40] 10-40 mg Tablet 1 tab PO HS RF: 0 cholecalciferol (vitamin D3) [Vitamin D3] 2,000 unit Capsule 2,000 unit PO QAM RF: 0 isosorbide mononitrate 120 mg tablet extended release 24 hr 120 mg PO QAM RF: 0 Discharge Orders: Discharge Order (Routine); Ordered 12/08/19 Ordered By: Scott Patterson Admission Data Admit Date/Time: 12/07/19 13:33 Attending Provider: Scott Patterson Admit Provider: Scott Patterson Primary Care Provider: Trae Garza Other Interventions: Discharge Summary Assessment (RN) Last Done: 12/08/19 08:22 DC Date/Time DO NOT enter until pt leaves facility: 12/08/19 12:25 Coding Level of Care Code 45507 OBS Care - Discharge Diagnoses Status post placement of cardiac pacemaker Z95.0 Time Spent (min) 20 Comment Due to COVID-[address] Garcia and the nurse taking care of the patient did the discharge history and physical, I did telephone consult ation with both of them and did the discharge paperwork and reviewed the chest x-ray, electrocardiogram and pacemaker interrogation myself.
== END 2019-12-08 12:25 | disposition home or self-care (01) ==
LOC: 2S 09:38 → EP 09:38

== ENCOUNTER 2019-12-29 19:05 | Observation (INO) ==
[2019-12-29] MEDS ORDERED: SODIUM CHLORIDE 0.9% 500 ML IV ONE (19:29)
[2019-12-29] MEDS ORDERED: ACETAMINOPHEN 325 MG TAB PO STA (19:31)
--- NOTE | 2019-12-29 20:07 | Emergency Department Note ---
Impression & Plan Pneumonia, Hypokalemia, Hypomagnesemia, Dehydration ED Provider Note NAME: ANGELINE WEN III AGE: 79 SEX: M : 1940 ARRIVES VIA: Walk-In INFORMANT: Patient, ED PROVIDER(S): Evan Rodriguez MD Chief Complaint: Chest pain, nausea vomiting diarrhea HPI: Patient does present as the patient did have left-sided chest pain beginning this morning. The patient states it lasted for only seconds and some slight but suddenly dissipated. Patient denies any diaphoresis nausea vomiting at the time. The patient later in the day did develop some nausea associated vomiting x3 that was nonbloody nonbilious. The patient also did have some loose stools. Patient currently states that he feels relatively well and is asymptomatic although he did have some chills earlier. The patient did have a temp of 101 at home. Patient does not present with coronavirus contacts, coronavirus testing, or recent travel. Patient has had a mild productive cough. Patient is a non-smoker. No history of DVT or PE. No lower extremity swelling. Patient did have a pacemaker placed back in November with Dr. Azul ROS: See HPI for pertinent positives and negatives. A total of 10 systems were reviewed and otherwise negative. Past medical history: See below Surgical history: See below Social history: See below Physical Exam: GENERAL: Well appearing, well nourished, NAD, non-toxic. Wearing a mask. EYE EXAM: Normal conjunctiva. PERRL, no anisocoria and EOM's grossly intact w/o pain. NECK: Supple, no nuchal rigidity, no adenopathy, non-tender. No signs of meningismus. Chest: Well-healed sternotomy scar, device in left chest. LUNGS: Clear to auscultation. Normal chest wall mechanics. HEART: NSR, no MRG. ABDOMEN: Abdomen soft, non-tender, normo-active bowel sounds, no masses, no rebound or guarding. BACK: No CVA TTP. SKIN: No rashes and no bruising. UPPER EXTREMITIES: Upper extremities are grossly normal. LOWER EXTREMITIES: Grossly normal, no edema. Negative Homans sign bilaterally. NEURO EXAM: A&O x3, cranial nerves II-XII grossly intact, normal speech, moves all 4 extremities on command w/o issue. Differential diagnoses: Viral syndrome, otitis, pharyngitis, pneumonia, influenza, meningitis, urinary tract infection, sepsis, bacteremia, as well as other pathologies. Course: Patient was seen and evaluated the bedside. Full history and physical exam was performed. EKG: Indication: Chest pain V paced rhythm, rate of 85, wide QRS, left bundle branch block pattern, left axis deviation. When compared with prior EKG the rate is increased from December 07, 2019. Imaging Studies: Radiology results as stated below per my review in the radiologist's interpretation: XR chest 1V portable CLINICAL HISTORY: SEPSIS dyspnea COMPARISON STUDY: 12/08/2019 FINDINGS: Mild stable cardiomegaly. Median sternotomy. Bipolar cardiac pacemaker. Diaphragms are smooth. Minimal interstitial infiltrate left base. Lungs otherwise appear clear. IMPRESSION: Minimal interstitial infiltrate left lung base. Prior median sternotomy. ACT 112: Negative or not required by law. The above report was generated using voice recognition software. It may contain grammatical, syntax or spelling errors. Electronically signed by: Nitesh Zazueta M.D. 12/29/2019 8:39 PM Dictated: 12/29/192036 Transcribed: 12/29/192036 Cardiac monitoring: An order was placed for continuous cardiac monitoring. The monitor shows a rate of 86 with paced rhythm. MDM: Patient does presents with fever chest pain chills nausea and vomiting. The patient is currently asymptomatic. Known history of CABG x3 and pacemaker. The patient denies urinary symptoms he has had a mildly productive cough. Non- smoker. Patient has had fever and chills but denies any recent travel sick contacts or coronavirus testing or coronavirus contacts. Blood was obtained along with an EKG. EKG is unchanged from prior. Patient was given IV fluids and Tylenol. Urinalysis was also obtained. The patient's x-ray does show concern for the possibility of a pneumonia. The patient does have a moderate curb 65 score of 2. Given this I discussed these findings with the patient. The patient also does have mild hypokalemia and hypomagnesemia. Given the concern for the possibility of coronavirus I did speak the on-call hospitalist. I deferred additional orders in order to mitigate the need for people in and out of the room. Patient was subsequently admitted to the medicine service. I did speak with Dr. Logan Guadarrama hospitalist. I did speak with the patient's about the admission she is in agreement with plan of care as well. Patient will continue to be in isolation at this time. Also of note the patient did have mildly elevated procalcitonin at 1.4. Very mild leukopenia with a white count of just over 10.8. Patient's urinalysis does not show obvious infection no urine bacteria but did have whites and some leuks. Patient denied any dysuria or urinary symptoms. 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 Last pacer check: 04/2019 Hx of myocardial infarction during cardiac cath (2012)- subseuqent CABG X3 Hyperlipidemia Kyphosis Pulmonary HTN RVSP 40-50mmhg Rosacea Sleep apnea CPAP SMA stenosis asymptomatic, "incidental finding" per cardiology SNHL (sensorineural hearing loss) Urethral stricture + recurrent UTI's/reason for upcoming procedure Surgical History H/O cystoscopy History of arthroplasty of right knee History of cardiac cath remote hx cardiac stents x2 04/2019: medically managed History of robot-assisted laparoscopic radical prostatectomy 2016 Hx of bilateral cataract extraction WITH LASIK PROCEDURE Hx of colonoscopy Hx of heart bypass surgery S/P CABG X 3 (2012) Hx of tooth extraction Family History Mother Hypertension Breast cancer Father Cardiac disorder Myocardial infarction Denies family history of Clotting disorder Social History Preferred Language: Sinhala Communication Ability: Effective Visual Impairment: No Limitations Docketing Specialist Required: No Beliefs That Will Affect Care: None marital status: Current Living Situation: Spouse Feels Safe at Home: Yes Smoking Status: Former smoker Tobacco Type: cigarettes ; Cigarettes Per Day: QUIT IN THE 1980S. Smoked 1ppd x 20 years. ; Second Hand Exposure: No ; Hx Alcohol Use: Yes Alcohol type: hard liquor Hx Substance Use: No Allergies Allergies Allergy/AdvReac Type Severity Reaction Status Date / Time Sulfa (Sulfonamide Allergy Mild rash Verified 12/06/19 11:45 Antibiotics) olmesartan Allergy Verified 12/06/19 11:45 metoclopramide AdvReac Intermediate Depression Verified 12/06/19 11:45 oxycodone [From OxyContin] AdvReac Intermediate Hallucinati Verified 12/06/19 11:45 ons ciprofloxacin [From Cipro] AdvReac Mild see notes Verified 12/06/19 11:45 lisinopril AdvReac Mild cough Verified 12/06/19 11:45 Home Meds Home Medications Medication Instructions Recorded Confirmed aspirin [Aspir-81] 81 mg PO QAM 06/19/18 12/29/19 citalopram 10 mg PO QAM 06/19/18 12/29/19 ezetimibe-simvastatin [Vytorin 1 tab PO HS 06/19/18 12/29/19 10-40] esomeprazole magnesium 40 mg 40 mg PO QPM cap 06/29/19 12/29/19 capsule,delayed release isosorbide mononitrate 120 mg PO QAM 10/24/19 12/29/19 nitroglycerin 0.4 mg SL DIRECTED PRN 12/29/19 12/29/19 Previous Rx's Medication Instructions Recorded sacubitril 24 mg-valsartan 26 mg 0.5 tab PO BID #60 tab 11/08/19 tablet furosemide 40 mg tablet 40 mg PO DAILY #30 tab 11/29/19 metoprolol succinate 100 mg 100 mg PO DAILY #90 tab 12/24/19 tablet,extended release 24 hr Results & Data (ED) Vital Signs Vital Signs - 24 hr 12/29/19 19:06 12/29/19 20:00 12/29/19 20:10 Temperature 37.7 C H Temperature Source Oral Pulse Rate 86 Pulse Rate [Left] 77 Pulse Rhythm Regular Pulse Rhythm [Left] Regular Pulse Strength [Left] Normal Respiratory Rate 18 16 Respiratory Effort / Characteristics Non-Labored Non-Labored Spontaneous Respiratory Depth Normal Normal Respiratory Pattern Regular Blood Pressure 101/68 Blood Pressure [Right Arm] 109/62 Blood Pressure Mean 79 Blood Pressure Mean [Right Arm] 77 Blood Pressure Position [Right Arm] Lying Pulse Oximetry 96 96 Oxygen Delivery Method Room Air Room Air Room Air Sepsis Recent Fever Within 48 Hours No Sepsis New/Unexplained Change in Mental Status No Sepsis Action Taken by Nursing No Action Required 12/29/19 21:28 12/29/19 22:45 Temperature Temperature Source Pulse Rate Pulse Rate [Left] 78 68 Pulse Rhythm Pulse Rhythm [Left] Regular Regular Pulse Strength [Left] Normal Normal Respiratory Rate 16 16 Respiratory Effort / Characteristics Non-Labored Spontaneous Non-Labored Spontaneous Respiratory Depth Normal Normal Respiratory Pattern Blood Pressure Blood Pressure [Right Arm] 107/56 L 96/51 L Blood Pressure Mean Blood Pressure Mean [Right Arm] 73 66 Blood Pressure Position [Right Arm] Lying Lying Pulse Oximetry 96 96 Oxygen Delivery Method Room Air Room Air Sepsis Recent Fever Within 48 Hours Sepsis New/Unexplained Change in Mental Status Sepsis Action Taken by Intermediate Medications Current Medication List: was personally reviewed by me Laboratory Data Attestation: I reviewed the patient's lab results. Result diagrams: 12/29/19 19:55 12/29/19 19:55 Lab Results 12/29/19 12/29/19 12/29/19 Range/Units 19:55 19:55 19:55 WBC 10.82 H (4.8-10.8) K/uL RBC 4.15 L (4.7-6.1) M/uL Hgb 12.5 L (14.0-18.0) g/dL Hct 37.0 L (42-52) % MCV 89.2 (80-100) fL MCH 30.1 (25-34) pg MCHC 33.8 (32-36) g/dL RDW Std Deviation 44.8 (36.4-46.3) fL RDW Coeff of Ricky 13.8 (11.5-14.5) % Plt Count 113 L (130-400) K/uL MPV 10.5 H (7.4-10.4) fL Immature Gran % (Auto) 0.1 % Neut % (Auto) 88.4 % Lymph % (Auto) 2.6 % [place] % (Auto) 8.5 % Eos % (Auto) 0.3 % Baso % (Auto) 0.1 % Immature Gran # (Auto) 0.01 (0.00-0.02) K/uL Neut # (Auto) 9.57 H (1.4-6.5) K/uL Lymph # (Auto) 0.28 L (1.2-3.4) K/uL [place] # (Auto) 0.92 H (0.11-0.59) K/uL Eos # (Auto) 0.03 (0-0.5) K/uL Baso # (Auto) 0.01 (0-0.2) K/uL PT 11.5 (9.0-12.0) Seconds INR 1.1 (0.9-1.1) APTT 24.0 (21.0-31.0) Seconds PTT Ratio 0.9 Sodium 138 (136-145) mmol/L Potassium 3.2 L (3.5-5.1) mmol/L Chloride 102 (98-107) mmol/L Carbon Dioxide 26 (21-32) mmol/L Anion Gap 9.0 (3-11) BUN 33 H (7-18) mg/dl Creatinine 1.35 (0.6-1.4) mg/dl Est Cr Clr Drug Dosing Not Reportable Est GFR ( Amer) 58.3 Est GFR (Non-Af Amer) 50.3 BUN/Creatinine Ratio 24.1 H (10-20) Glucose 116 H (70-99) mg/dl Lactate (0.4-2.0) mmol/L Calcium 9.5 (8.5-10.1) mg/dl Magnesium 1.7 L (1.8-2.4) mg/dl Total Bilirubin 1.0 (0.2-1) mg/dl AST 15 (15-37) U/L ALT 21 (12-78) U/L Alkaline Phosphatase 60 (45-117) U/L Troponin I 0.016 (0-0.045) ng/ml Total Protein 7.7 (6.4-8.2) gm/dl Albumin 4.2 (3.4-5.0) gm/dl Globulin 3.5 (2.5-4.0) gm/dl Albumin/Globulin Ratio 1.2 (0.9-2) Procalcitonin (0-0.5) ng/ml Urine Color Urine Appearance (Clear) Urine pH (4.5-7.5) Ur Specific [place] (1.000-1.030) Urine Protein (Negative) Urine Glucose (UA) (Negative) Urine Ketones (Negative) Urine Blood (Negative) Urine Nitrite (Negative) Urine Bilirubin (Negative) Urine Urobilinogen (Negative) Ur Leukocyte Esterase (Negative) Urine WBC (Auto) (0-5) /hpf Urine RBC (Auto) (0-4) /hpf U Hyaline Cast (Auto) (0-5) /lpf U Epithel Cells (Auto) (0-5) /lpf Urine Bacteria (Auto) (Negative) 12/29/19 12/29/19 12/29/19 Range/Units 19:55 19:55 19:55 WBC (4.8-10.8) K/uL RBC (4.7-6.1) M/uL Hgb (14.0-18.0) g/dL Hct (42-52) % MCV (80-100) fL MCH (25-34) pg MCHC (32-36) g/dL RDW Std Deviation (36.4-46.3) fL RDW Coeff of Ricky (11.5-14.5) % Plt Count (130-400) K/uL MPV (7.4-10.4) fL Immature Gran % (Auto) % Neut % (Auto) % Lymph % (Auto) % [place] % (Auto) % Eos % (Auto) % Baso % (Auto) % Immature Gran # (Auto) (0.00-0.02) K/uL Neut # (Auto) (1.4-6.5) K/uL Lymph # (Auto) (1.2-3.4) K/uL [place] # (Auto) (0.11-0.59) K/uL Eos # (Auto) (0-0.5) K/uL Baso # (Auto) (0-0.2) K/uL PT (9.0-12.0) Seconds INR (0.9-1.1) APTT (21.0-31.0) Seconds PTT Ratio Sodium (136-145) mmol/L Potassium (3.5-5.1) mmol/L Chloride (98-107) mmol/L Carbon Dioxide (21-32) mmol/L Anion Gap (3-11) BUN (7-18) mg/dl Creatinine (0.6-1.4) mg/dl Est Cr Clr Drug Dosing Est GFR ( Amer) Est GFR (Non-Af Amer) BUN/Creatinine Ratio (10-20) Glucose (70-99) mg/dl Lactate 2.2 H* (0.4-2.0) mmol/L Calcium (8.5-10.1) mg/dl Magnesium (1.8-2.4) mg/dl Total Bilirubin (0.2-1) mg/dl AST (15-37) U/L ALT (12-78) U/L Alkaline Phosphatase (45-117) U/L Troponin I (0-0.045) ng/ml Total Protein (6.4-8.2) gm/dl Albumin (3.4-5.0) gm/dl Globulin (2.5-4.0) gm/dl Albumin/Globulin Ratio (0.9-2) Procalcitonin 1.46 H (0-0.5) ng/ml Urine Color Yellow Urine Appearance Clear (Clear) Urine pH 5.0 (4.5-7.5) Ur Specific [place] 1.020 (1.000-1.030) Urine Protein Negative (Negative) Urine Glucose (UA) Negative (Negative) Urine Ketones Negative (Negative) Urine Blood Negative (Negative) Urine Nitrite Negative (Negative) Urine Bilirubin Negative (Negative) Urine Urobilinogen Negative (Negative) Ur Leukocyte Esterase 2+ H (Negative) Urine WBC (Auto) >30 H (0-5) /hpf Urine RBC (Auto) 0-4 (0-4) /hpf U Hyaline Cast (Auto) 5-10 H (0-5) /lpf U Epithel Cells (Auto) 5-10 H (0-5) /lpf Urine Bacteria (Auto) Negative (Negative) 12/29/19 Range/Units 22:17 WBC (4.8-10.8) K/uL RBC (4.7-6.1) M/uL Hgb (14.0-18.0) g/dL Hct (42-52) % MCV (80-100) fL MCH (25-34) pg MCHC (32-36) g/dL RDW Std Deviation (36.4-46.3) fL RDW Coeff of Ricky (11.5-14.5) % Plt Count (130-400) K/uL MPV (7.4-10.4) fL Immature Gran % (Auto) % Neut % (Auto) % Lymph % (Auto) % [place] % (Auto) % Eos % (Auto) % Baso % (Auto) % Immature Gran # (Auto) (0.00-0.02) K/uL Neut # (Auto) (1.4-6.5) K/uL Lymph # (Auto) (1.2-3.4) K/uL [place] # (Auto) (0.11-0.59) K/uL Eos # (Auto) (0-0.5) K/uL Baso # (Auto) (0-0.2) K/uL PT (9.0-12.0) Seconds INR (0.9-1.1) APTT (21.0-31.0) Seconds PTT Ratio Sodium (136-145) mmol/L Potassium (3.5-5.1) mmol/L Chloride (98-107) mmol/L Carbon Dioxide (21-32) mmol/L Anion Gap (3-11) BUN (7-18) mg/dl Creatinine (0.6-1.4) mg/dl Est Cr Clr Drug Dosing Est GFR ( Amer) Est GFR (Non-Af Amer) BUN/Creatinine Ratio (10-20) Glucose (70-99) mg/dl Lactate 1.5 (0.4-2.0) mmol/L Calcium (8.5-10.1) mg/dl Magnesium (1.8-2.4) mg/dl Total Bilirubin (0.2-1) mg/dl AST (15-37) U/L ALT (12-78) U/L Alkaline Phosphatase (45-117) U/L Troponin I (0-0.045) ng/ml Total Protein (6.4-8.2) gm/dl Albumin (3.4-5.0) gm/dl Globulin (2.5-4.0) gm/dl Albumin/Globulin Ratio (0.9-2) Procalcitonin (0-0.5) ng/ml Urine Color Urine Appearance (Clear) Urine pH (4.5-7.5) Ur Specific [place] (1.000-1.030) Urine Protein (Negative) Urine Glucose (UA) (Negative) Urine Ketones (Negative) Urine Blood (Negative) Urine Nitrite (Negative) Urine Bilirubin (Negative) Urine Urobilinogen (Negative) Ur Leukocyte Esterase (Negative) Urine WBC (Auto) (0-5) /hpf Urine RBC (Auto) (0-4) /hpf U Hyaline Cast (Auto) (0-5) /lpf U Epithel Cells (Auto) (0-5) /lpf Urine Bacteria (Auto) (Negative) Administered Medications Discontinued Medications Acetaminophen (Tylenol) 650 mg PO NOW STA Stop: 12/29/19 19:32 Last Admin: 12/29/19 19:44 Dose: 650 mg Documented by: [id number] Sodium Chloride (Nss) 500 mls @ 999 mls/hr IV .Q31M ONE Stop: 12/29/19 19:59 Last Infusion: 12/29/19 20:30 Dose: 0 mls/hr Documented by: [id number] Admin: 12/29/19 19:45 Dose: 999 mls/hr Documented by: [id number] Blood Pressure Blood Pressure Findings: Normal blood pressure Blood Pressure Disposition: did not require urgent referral Discharge Plan Visit Data Chief Complaint: Illness Stated Complaint: CHEST PAIN,DIARRHEA,CHILLS,WEAKNESS ED Provider: Evan Rodriguez Discharge Problem: Pneumonia, Hypokalemia, Hypomagnesemia, Dehydration Forms Stand Alone Forms: [facility] Prescriptions Prescriptions: No Action furosemide 40 mg tablet 40 mg PO DAILY Qty: 30 RF: 11 metoprolol succinate 100 mg tablet extended release 24 hr 100 mg PO DAILY Qty: 90 RF: 3 Entresto 24-26 mg tablet 0.5 tab PO BID Qty: 60 RF: 2 esomeprazole magnesium [Nexium] 40 mg capsule,delayed release(DR/EC) 40 mg PO QPM RF: 0 citalopram 10 mg Tablet 10 mg PO QAM RF: 0 aspirin [Aspir-81] 81 mg Tablet,Delayed Release (Dr/Ec) 81 mg PO QAM RF: 0 ezetimibe-simvastatin [Vytorin 10-40] 10-40 mg Tablet 1 tab PO HS RF: 0 isosorbide mononitrate 120 mg tablet extended release 24 hr 120 mg PO QAM RF: 0 nitroglycerin 0.4 mg tablet, sublingual 0.4 mg SL DIRECTED PRN (Reason: Chest Pain) RF: 0 Discharge Problem: Pneumonia Qualifiers: Pneumonia type: due to unspecified organism Laterality: left Lung location: lower lobe of lung Qualified Code(s): J18.9 - Pneumonia, unspecified organism
[2019-12-29 20:18] LABS: Basophils # (auto) 0.01 K/uL (0-0.2); Basophils % (auto) 0.1 %; Eosinophils # (auto) 0.03 K/uL (0-0.5); Eosinophils % (auto) 0.3 %; Hemoglobin 12.5 g/dL (14.0-18.0); Immature Granulocytes # (auto) 0.01 K/uL (0.00-0.02); Immature Granulocytes % (auto) 0.1 %; Lymphocytes # (auto) 0.28 K/uL (1.2-3.4); Lymphocytes % (auto) 2.6 %; Mean Corpuscular Hemoglobin 30.1 pg (25-34); Mean Corpuscular Hgb Conc 33.8 g/dL (32-36); Mean Corpuscular Volume 89.2 fL (80-100); Mean Platelet Volume 10.5 fL (7.4-10.4); Monocytes # (auto) 0.92 K/uL (0.11-0.59); Monocytes % (auto) 8.5 %; Neutrophils # (auto) 9.57 K/uL (1.4-6.5); Neutrophils % (auto) 88.4 %; Platelet Count 113 K/uL (130-400); RDW Coefficient of Variation 13.8 % (11.5-14.5); RDW Standard Deviation 44.8 fL (36.4-46.3); Red Blood Count 4.15 M/uL (4.7-6.1); White Blood Count 10.82 K/uL (4.8-10.8)
[2019-12-29 20:23] LABS: Appearance Urine Clear (Clear); Bacteria Urine Automated Negative (Negative); Bilirubin Urine Negative (Negative); Blood Urine Negative (Negative); Color Urine Yellow; Glucose Urine UA Negative (Negative); Ketones Urine Negative (Negative); Leukocyte Esterase Urine 2+ (Negative); Nitrite Urine Negative (Negative); Protein Urine Negative (Negative); RBC Urine Automated 0-4 /hpf (0-4); Urobilinogen Urine Negative (Negative); WBC Urine Automated >30 /hpf (0-5)
[2019-12-29 20:27] LABS: INR 1.1 (0.9-1.1); Partial Thromboplastin Ratio 0.9; Prothrombin Time 11.5 Seconds (9.0-12.0)
[2019-12-29 20:34] LABS: Alanine Aminotransferase 21 U/L (12-78); Albumin Level 4.2 gm/dl (3.4-5.0); Aspartate Aminotransferase 15 U/L (15-37); BUN Creatinine Ratio 24.1 (10-20); Blood Urea Nitrogen 33 mg/dl (7-18); Calcium 9.5 mg/dl (8.5-10.1); Carbon Dioxide 26 mmol/L (21-32); Chloride 102 mmol/L (98-107); Est GFR (African American) 58.3; Est GFR (Non-African American) 50.3; Glucose 116 mg/dl (70-99); Magnesium 1.7 mg/dl (1.8-2.4); Potassium 3.2 mmol/L (3.5-5.1); Sodium 138 mmol/L (136-145)
[2019-12-29 20:39] LABS: Albumin Globulin Ratio 1.2 (0.9-2); Alkaline Phosphatase 60 U/L (45-117); Globulin 3.5 gm/dl (2.5-4.0); Total Protein 7.7 gm/dl (6.4-8.2); Troponin I 0.016 ng/ml (0-0.045)
--- NOTE | 2019-12-29 20:41 | XRay Report ---
XR chest 1V portable CLINICAL HISTORY: SEPSIS dyspnea COMPARISON STUDY: 12/08/2019 FINDINGS: Mild stable cardiomegaly. Median sternotomy. Bipolar cardiac pacemaker. Diaphragms are smooth. Minimal interstitial infiltrate left base. Lungs otherwise appear clear. IMPRESSION: Minimal interstitial infiltrate left lung base. Prior median sternotomy. ACT 112: Negative or not required by law. The above report was generated using voice recognition software. It may contain grammatical, syntax or spelling errors. Electronically signed by: Nitesh Zazueta M.D. 12/29/2019 8:39 PM
--- NOTE | 2019-12-29 22:40 | History & Physical Report ---
Date of Service December 29, 2019 Assessment & Plan (1) Pneumonia: 79yo C male with multiple medical comorbidities presents with fevers/chills/nausea/vomiting/diarrhea. Afebrile, hemodynamically stable on arrival. No respiratory distress, adequate saturation on room air. Found to have neutrophil predominant leukocytosis with lymphopenia, elevated procalcitonin level. CXR with minimal interstitial infiltrate noted at the left lung base. -Admit to PCU -Check Biofire respiratory panel -Check LDH, Ddimer, CRP -Check SARS-CoV2 -Maintain isolation precautions, Contact and Airborne until SARS-CoV2 resulted -Follow cultures sent from ER -Ceftriaxone 2gm IV daily, Doxycycline 100mg IV BID for presumed CAP -Supplemental O2 as needed to maintain saturations >90% -Tylenol as needed for pain or fever Present on Admission?: Yes (2) Chest pain: Patient with brief episode of chest pain earlier today which has since resolved. He has longstanding history of CAD s/p [employer] to RCA, s/p CABG x 3V in 2012. He had a cardiac catheterization performed in 05/2019 which showed patent grafts but disease to SVG to PLB. EKG is V-paced with no obvious evidence of acute ischemia. Troponin is detectable at 0.016, however, decreased from prior values. Presently CP free. He has had history of atypical chest pain in the past. -PCU with continuous cardiac monitoring -Repeat troponin in 8 hours -Continue ASA 81mg po daily -Continue Metoprolol 100mg po daily with holding parameters -Continue Vytorin -Continue Entresto as tolerated. Of note, patient's states that he is only able to tolerated 0.5 tablet BID of Entresto as it has dropped his BP in the past. Present on Admission?: Yes (3) CAD (coronary artery disease): As above, patient with known CAD s/p prior stenting, s/p CABG x 3V in 2012. He follows with Cardiology, last seen by Dr. Blackwell on 11/09/19 -Continue management as above, ASA/Vytorin/Metoprolol/Entresto/Isosorbide mononitrate Present on Admission?: Yes (4) Cardiomyopathy: Patient with ischemic cardiomyopathy, chronic systolic heart failure. EF 35-40% per echo in 10/2019. Patient had a dual-chamber Medtronic pacemaker which was placed 09/2017. He had worsening of his LV function thought to be secondary to dyssynchrony as well as difficulty optimizing medical therapies due to symptomatic hypotension, therefore, patient had a biventricular ICD placed by Dr. Austin on 12/06/19. Presently he has no evidence of acutely decompensated CHF. He appears to be slightly volume depleted based on labs and clinical exam. He was administered 500mL NSS in the ER -Continue home medications, ASA, Vytorin, Metoprolol, Entresto and Isosorbide mononitrate as tolerated -Closely monitor BP and volume status Present on Admission?: Yes (5) COPD (chronic obstructive pulmonary disease): Chronic. Stable -Continue to monitor Present on Admission?: Yes (6) Depression: Chronic. Stable -Conitnue Citalopram 10mg po daily Present on Admission?: Yes (7) GERD (gastroesophageal reflux disease): Chronic. Stable. He reports a chronic cough thought to be secondary to underlying GERD -Continue Nexium F/E/N - Gentle IVF - LR at 100mL/hr x 1 liter, Mg repletion with 2gm, K repletion with 40mEq, repeat labs in AM, Heart healthy diet as tolerated Ppx - Lovenox 40 Code - Full per discussion with patient Dispo - Admit to PCU, treatment of presumed CAP, Covid-19 rule out Present on Admission?: Yes Admission and Anticipated Discharge Date Admission Date: 12/29/19 Anticipated date of discharge: 12/30/19 History of Present Illness Chief Complaint: fever, n/v/d, CP Primary Care Provider: Molina Austin III, [place] Mr. Elbert Sesay is a pleasant 79yo C male presenting with fever/chills/n/v/d and mild chest discomfort. Patient was feeling yesterday. This morning he developed some left sided chest discomfort while at rest. The pain was moderate, lasted only a few seconds, located in the lower portion of the left chest. Non-pleuritic, non-positional, non-exertional. Later in the day he developed some nausea with three episodes of non-bloody/non-bilious vomiting and some diarrhea followed by chills and fever to 101. Patient has a chronic cough and does not endorse increased cough or sputum. He denies change in taste but reports poor smell at baseline. No additional complaints at this time. Patient with no travel, no sick contacts, no known contact with SARS-CoV2 positive people. He has been maintaining social distancing measures in his home. He did go to [facility] yesterday with gloves and mask in place. 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 ER Course: Tylenol 650mg PO, NSS 500mL Allergies Allergy/AdvReac Type Severity Reaction Status Date / Time Sulfa (Sulfonamide Allergy Mild rash Verified 12/06/19 11:45 Antibiotics) olmesartan Allergy Verified 12/06/19 11:45 metoclopramide AdvReac Intermediate Depression Verified 12/06/19 11:45 oxycodone [From OxyContin] AdvReac Intermediate Hallucinati Verified 12/06/19 11:45 ons ciprofloxacin [From Cipro] AdvReac Mild see notes Verified 12/06/19 11:45 lisinopril AdvReac Mild cough Verified 12/06/19 11:45 Home Medications Home Medications Medication Instructions Recorded Confirmed Type aspirin [Aspir-81] 81 mg PO QAM 06/19/18 12/29/19 History citalopram 10 mg PO QAM 06/19/18 12/29/19 History ezetimibe-simvastatin [Vytorin 1 tab PO HS 06/19/18 12/29/19 History 10-40] esomeprazole magnesium 40 mg 40 mg PO QPM cap 06/29/19 12/29/19 History capsule,delayed release isosorbide mononitrate 120 mg PO QAM 10/24/19 12/29/19 History sacubitril 24 mg-valsartan 26 mg 0.5 tab PO BID #60 tab 11/08/19 12/29/19 Rx tablet furosemide 40 mg tablet 40 mg PO DAILY #30 tab 11/29/19 12/29/19 Rx metoprolol succinate 100 mg 100 mg PO DAILY #90 tab 12/24/19 12/29/19 Rx tablet,extended release 24 hr nitroglycerin 0.4 mg SL DIRECTED PRN 12/29/19 12/29/19 History Past Med/Surg History Medical History A-fib incidentally noted episodic a.fib/a.flutter on pacemaker check- on beta alyssa, cardiology holding on anticoagulation in setting of hematuria CAD (coronary artery disease) S/P CABG X3 (2012), remote hx of cardiac stents x2 (7+ years ago) COPD (chronic obstructive pulmonary disease) stable Fistula colovesical fistula GERD (gastroesophageal reflux disease) controlled History of prostate cancer History of urinary incontinence Hx of cardiac pacemaker / SSS/high grade AVB; Medtronic implanted 09/2017. Last pacer check: 04/2019 Hx of myocardial infarction during cardiac cath (2012)- subseuqent CABG X3 Hyperlipidemia Kyphosis Pulmonary HTN RVSP 40-50mmhg Rosacea Sleep apnea CPAP SMA stenosis asymptomatic, "incidental finding" per cardiology SNHL (sensorineural hearing loss) Urethral stricture + recurrent UTI's/reason for upcoming procedure Surgical History H/O cystoscopy History of arthroplasty of right knee History of cardiac cath remote hx cardiac stents x2 04/2019: medically managed History of robot-assisted laparoscopic radical prostatectomy 2015 Hx of bilateral cataract extraction WITH LASIK PROCEDURE Hx of colonoscopy Hx of heart bypass surgery S/P CABG X 3 (2012) Hx of tooth extraction Family History Mother Hypertension Breast cancer Father Cardiac disorder Myocardial infarction Denies family history of Clotting disorder Social History Preferred Language: Yi Communication Ability: Effective Visual Impairment: No 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 Smoked 1ppd x 20 years. ; Second Hand Exposure: No ; Hx Alcohol Use: Yes Alcohol type: hard liquor Hx Substance Use: No Review of Systems Review of Systems: All systems reviewed & are unremarkable except as noted in HPI & below Physical Exam Physical Exam: General: patient resting comfortably, NAD, non-toxic in appearance, AA&O x 4 Skin: warm, dry, intact, no rashes or lesions HEENT: NC/AT, PERRL, EOMI, anicteric sclera, conjunctiva without injection, external ear normal to inspection and nontender, nares patent, moist mucus membranes, dentition intact, no oropharyngeal lesions, neck supple, trachea midline, no LAD, no thyromegaly, no JVD Heart: +S1/S2, regular, no m/r/g, pacemaker present left chest, mildly tender to palpation, no erythema/edema Lungs: equal air entry bilaterally, no rales/rhonchi/wheezes Abd: +BS, soft, NT/ND, no masses/organomegaly/ascites Ext: warm, 2+ pulses in UE/LE bilaterally, no clubbing/cyanosis or edema Neuro: nonfocal, patient AA&O x 4, speech intact, no facial droop, moving all extremities on command with equal strength 5/5 Results & Data Results & Data ([facility]) Vital Signs (Past 12 Hours) Vital Signs Temp Pulse Pulse Resp BP BP Pulse Ox 12/29/19 21:28 78 16 107/56 L 96 12/29/19 20:10 77 16 109/62 96 12/29/19 19:06 37.7 C H 86 18 101/68 96 Laboratory Results Lab Results 12/29/19 12/29/19 12/29/19 Range/Units 19:55 19:55 19:55 WBC 10.82 H (4.8-10.8) K/uL RBC 4.15 L (4.7-6.1) M/uL Hgb 12.5 L (14.0-18.0) g/dL Hct 37.0 L (42-52) % MCV 89.2 (80-100) fL MCH 30.1 (25-34) pg MCHC 33.8 (32-36) g/dL RDW Std Deviation 44.8 (36.4-46.3) fL RDW Coeff of Ricky 13.8 (11.5-14.5) % Plt Count 113 L (130-400) K/uL MPV 10.5 H (7.4-10.4) fL Immature Gran % (Auto) 0.1 % Neut % (Auto) 88.4 % Lymph % (Auto) 2.6 % Stokes % (Auto) 8.5 % Eos % (Auto) 0.3 % Baso % (Auto) 0.1 % Immature Gran # (Auto) 0.01 (0.00-0.02) K/uL Neut # (Auto) 9.57 H (1.4-6.5) K/uL Lymph # (Auto) 0.28 L (1.2-3.4) K/uL Stokes # (Auto) 0.92 H (0.11-0.59) K/uL Eos # (Auto) 0.03 (0-0.5) K/uL Baso # (Auto) 0.01 (0-0.2) K/uL PT 11.5 (9.0-12.0) Seconds INR 1.1 (0.9-1.1) APTT 24.0 (21.0-31.0) Seconds PTT Ratio 0.9 Sodium 138 (136-145) mmol/L Potassium 3.2 L (3.5-5.1) mmol/L Chloride 102 (98-107) mmol/L Carbon Dioxide 26 (21-32) mmol/L Anion Gap 9.0 (3-11) BUN 33 H (7-18) mg/dl Creatinine 1.35 (0.6-1.4) mg/dl Est Cr Clr Drug Dosing Not Reportable Est GFR ( Amer) 58.3 Est GFR (Non-Af Amer) 50.3 BUN/Creatinine Ratio 24.1 H (10-20) Glucose 116 H (70-99) mg/dl Lactate (0.4-2.0) mmol/L Calcium 9.5 (8.5-10.1) mg/dl Magnesium 1.7 L (1.8-2.4) mg/dl Total Bilirubin 1.0 (0.2-1) mg/dl AST 15 (15-37) U/L ALT 21 (12-78) U/L Alkaline Phosphatase 60 (45-117) U/L Troponin I 0.016 (0-0.045) ng/ml Total Protein 7.7 (6.4-8.2) gm/dl Albumin 4.2 (3.4-5.0) gm/dl Globulin 3.5 (2.5-4.0) gm/dl Albumin/Globulin Ratio 1.2 (0.9-2) Procalcitonin (0-0.5) ng/ml Urine Color Urine Appearance (Clear) Urine pH (4.5-7.5) Ur Specific [place] (1.000-1.030) Urine Protein (Negative) Urine Glucose (UA) (Negative) Urine Ketones (Negative) Urine Blood (Negative) Urine Nitrite (Negative) Urine Bilirubin (Negative) Urine Urobilinogen (Negative) Ur Leukocyte Esterase (Negative) Urine WBC (Auto) (0-5) /hpf Urine RBC (Auto) (0-4) /hpf U Hyaline Cast (Auto) (0-5) /lpf U Epithel Cells (Auto) (0-5) /lpf Urine Bacteria (Auto) (Negative) 12/29/19 12/29/19 12/29/19 Range/Units 19:55 19:55 19:55 WBC (4.8-10.8) K/uL RBC (4.7-6.1) M/uL Hgb (14.0-18.0) g/dL Hct (42-52) % MCV (80-100) fL MCH (25-34) pg MCHC (32-36) g/dL RDW Std Deviation (36.4-46.3) fL RDW Coeff of Ricky (11.5-14.5) % Plt Count (130-400) K/uL MPV (7.4-10.4) fL Immature Gran % (Auto) % Neut % (Auto) % Lymph % (Auto) % Stokes % (Auto) % Eos % (Auto) % Baso % (Auto) % Immature Gran # (Auto) (0.00-0.02) K/uL Neut # (Auto) (1.4-6.5) K/uL Lymph # (Auto) (1.2-3.4) K/uL Stokes # (Auto) (0.11-0.59) K/uL Eos # (Auto) (0-0.5) K/uL Baso # (Auto) (0-0.2) K/uL PT (9.0-12.0) Seconds INR (0.9-1.1) APTT (21.0-31.0) Seconds PTT Ratio Sodium (136-145) mmol/L Potassium (3.5-5.1) mmol/L Chloride (98-107) mmol/L Carbon Dioxide (21-32) mmol/L Anion Gap (3-11) BUN (7-18) mg/dl Creatinine (0.6-1.4) mg/dl Est Cr Clr Drug Dosing Est GFR ( Amer) Est GFR (Non-Af Amer) BUN/Creatinine Ratio (10-20) Glucose (70-99) mg/dl Lactate 2.2 H* (0.4-2.0) mmol/L Calcium (8.5-10.1) mg/dl Magnesium (1.8-2.4) mg/dl Total Bilirubin (0.2-1) mg/dl AST (15-37) U/L ALT (12-78) U/L Alkaline Phosphatase (45-117) U/L Troponin I (0-0.045) ng/ml Total Protein (6.4-8.2) gm/dl Albumin (3.4-5.0) gm/dl Globulin (2.5-4.0) gm/dl Albumin/Globulin Ratio (0.9-2) Procalcitonin 1.46 H (0-0.5) ng/ml Urine Color Yellow Urine Appearance Clear (Clear) Urine pH 5.0 (4.5-7.5) Ur Specific [place] 1.020 (1.000-1.030) Urine Protein Negative (Negative) Urine Glucose (UA) Negative (Negative) Urine Ketones Negative (Negative) Urine Blood Negative (Negative) Urine Nitrite Negative (Negative) Urine Bilirubin Negative (Negative) Urine Urobilinogen Negative (Negative) Ur Leukocyte Esterase 2+ H (Negative) Urine WBC (Auto) >30 H (0-5) /hpf Urine RBC (Auto) 0-4 (0-4) /hpf U Hyaline Cast (Auto) 5-10 H (0-5) /lpf U Epithel Cells (Auto) 5-10 H (0-5) /lpf Urine Bacteria (Auto) Negative (Negative) Diagnostic Findings XR chest 1V portable CLINICAL HISTORY: SEPSIS dyspnea COMPARISON STUDY: 12/08/2019 FINDINGS: Mild stable cardiomegaly. Median sternotomy. Bipolar cardiac pacemaker. Diaphragms are smooth. Minimal interstitial infiltrate left base. Lungs otherwise appear clear. IMPRESSION: Minimal interstitial infiltrate left lung base. Prior median sternotomy. ACT 112: Negative or not required by law. The above report was generated using voice recognition software. It may contain grammatical, syntax or spelling errors. Electronically signed by: Nitesh Zazueta M.D. 12/29/2019 8:39 PM Dictated: 12/29/192036 Transcribed: 12/29/192036 ECG Additional Comments: V-paced at 85bpm, no acute ischemic changes Code Status & VTE Plan Code Status FULL CODE VTE Prophylaxis Plan VTE Prophylaxis will be ordered: Yes PG Care Time/CCT Total # of Minutes Spent Total Time Spent with Patient: Total time spent is greater than 50% in coordination of care (as documented) at patient's floor/unit and/or counseling patient: Coding Level of Care Code 30969 Initial Inpt Care Lvl 3 Diagnoses Pneumonia J18.9 Pneumonia type: due to unspecified organism Laterality: left Lung location: lower lobe of lung Chest pain R07.9 Chest pain type: unspecified CAD (coronary artery disease) I25.119 Associated angina: with unspecified angina Coronary Disease-Associated Artery/Lesion type: [place] artery U[place] vs. transplanted heart: [place] heart Cardiomyopathy I42.9 Cardiomyopathy type: unspecified COPD (chronic obstructive pulmonary disease) J44.9 COPD type: unspecified COPD Depression F32.9 Depression Type: unspecified GERD (gastroesophageal reflux disease) K21.9 Esophagitis presence: esophagitis presence not specified (1) CAD (coronary artery disease) Associated angina: with unspecified angina Coronary Disease-Associated Artery/Lesion type: [place] artery [place] vs. transplanted heart: [place] heart Qualified Code(s): I25.119 - Atherosclerotic heart disease of [place] coronary artery with unspecified angina pectoris (2) Depression Depression Type: unspecified Qualified Code(s): F32.9 - Major depressive disorder, single episode, unspecified (3) COPD (chronic obstructive pulmonary disease) COPD type: unspecified COPD Qualified Code(s): J44.9 - Chronic obstructive pulmonary disease, unspecified (4) GERD (gastroesophageal reflux disease) Esophagitis presence: esophagitis presence not specified Qualified Code(s): K21.9 - Gastro-esophageal reflux disease without esophagitis (5) Chest pain Chest pain type: unspecified Qualified Code(s): R07.9 - Chest pain, unspecified (6) Cardiomyopathy Cardiomyopathy type: unspecified Qualified Code(s): I42.9 - Cardiomyopathy, unspecified (7) Pneumonia Pneumonia type: due to unspecified organism Laterality: left Lung location: lower lobe of lung Qualified Code(s): J18.9 - Pneumonia, unspecified organism
[2019-12-29] MEDS ORDERED: POTASSIUM CHLORIDE 20 MEQ TABCR PO STA (23:42)
[2019-12-29] MEDS ORDERED: ACETAMINOPHEN 325 MG TAB PO PRN (23:42)
[2019-12-29] MEDS ORDERED: ONDANSETRON INJ 2 MG/ML 2 ML VIAL IV PRN (23:42)
[2019-12-30] MEDS ORDERED: cefTRIAXone SODIUM 2,000 MG in DEXTROSE 5% 50 ML IV SCH
[2019-12-30 00:10] LABS: C Reactive Protein 0.84 mg/dl (0-0.29); Phosphorus 1.9 mg/dl (2.5-4.9)
[2019-12-30] MEDS: MAGNESIUM SULFATE / D5W 1 GM/100 ML BAG IV SCH ×2 (00:25→01:48)
[2019-12-30] MEDS: DOXYCYCLINE HYCLATE 100 MG in DEXTROSE 5% 100 ML IV SCH ×2 (00:32→11:42)
[2019-12-30] MEDS ORDERED: LACTATED RINGER'S 1,000 ML IV SCH (01:00)
[2019-12-30 01:14] LABS: Adenovirus PCR Not Detected (NotDetected); Bordetella parapertussis PCR Not Detected (NotDetected); Bordetella pertussis PCR Not Detected (NotDetected); Chlamydia pneumoniae PCR Not Detected (NotDetected); Coronavirus 229E PCR Not Detected (NotDetected); Coronavirus HKU1 PCR Not Detected (NotDetected); Coronavirus NL63 PCR Not Detected (NotDetected); Coronavirus OC43PCR Not Detected (NotDetected); Human Metapneumovirus PCR Not Detected (NotDetected); Influenza A PCR Not Detected (NotDetected); Influenza B PCR Not Detected (NotDetected); Mycoplasma pneumoniae PCR Not Detected (NotDetected); Parainfluenza Virus 1 PCR Not Detected (NotDetected); Parainfluenza Virus 2 PCR Not Detected (NotDetected); Parainfluenza Virus 3 PCR Not Detected (NotDetected); Parainfluenza Virus 4 PCR Not Detected (NotDetected); Respiratory Syncytial VirusPCR Not Detected (NotDetected); Rhinovirus/Enterovirus PCR Not Detected (NotDetected)
[2019-12-30 04:23] LABS: Hematocrit (blood only) 32.5 % (42-52); Mean Corpuscular Hemoglobin 30.1 pg (25-34); Mean Corpuscular Hgb Conc 33.8 g/dL (32-36); RDW Coefficient of Variation 13.9 % (11.5-14.5); RDW Standard Deviation 45.6 fL (36.4-46.3); Red Blood Count 3.65 M/uL (4.7-6.1); White Blood Count 5.28 K/uL (4.8-10.8)
[2019-12-30 04:46] LABS: D Dimer 710 ug/L FEU (0-500)
[2019-12-30 04:55] LABS: BUN Creatinine Ratio 24.9 (10-20); Blood Urea Nitrogen 26 mg/dl (7-18); Calcium 8.6 mg/dl (8.5-10.1); Carbon Dioxide 27 mmol/L (21-32); Chloride 106 mmol/L (98-107); Creatinine Clr Calc Pharmacy 72.7 ml/min; Est GFR (African American) 78.1; Est GFR (Non-African American) 67.4; Glucose 106 mg/dl (70-99); Magnesium 2.2 mg/dl (1.8-2.4); Potassium 3.7 mmol/L (3.5-5.1); Sodium 137 mmol/L (136-145); Troponin I < 0.015 ng/ml (0-0.045)
[2019-12-30 05:08] LABS: Basophils # (auto) 0.01 K/uL (0-0.2); Basophils % (auto) 0.2 %; Eosinophils # (auto) 0.02 K/uL (0-0.5); Eosinophils % (auto) 0.4 %; Lymphocytes # (auto) 0.36 K/uL (1.2-3.4); Lymphocytes % (auto) 6.8 %; Monocytes # (auto) 0.31 K/uL (0.11-0.59); Monocytes % (auto) 5.9 %; Neutrophils # (auto) 4.58 K/uL (1.4-6.5); Neutrophils % (auto) 86.7 %; Platelet Count 74 K/uL (130-400); Platelet Estimate Decreased (Normal)
--- NOTE | 2019-12-30 08:32 | Electrocardiogram Report ---
Test Reason : Blood Pressure : / mmHG Vent. Rate : 085 BPM Atrial Rate : 085 BPM P-R Int : 000 ms QRS Dur : 208 ms QT Int : 506 ms P-R-T Axes : 029 -39 107 degrees QTc Int : 602 ms Poor data quality, interpretation may be adversely affected Atrial sensing, ventricular pacing Abnormal ECG When compared with ECG of 07-DEC-2019 16:15, Vent. rate has increased BY 25 BPM Electronic atrial pacing no longer present Confirmed by Mannie Mclean ([id number]) on 12/30/2019 8:31:48 AM Referred By: REFERRED SELF Confirmed By:Mannie Mclean
[2019-12-30] MEDS ORDERED: ASPIRIN 81 MG ECTAB PO SCH (09:00)
[2019-12-30] MEDS ORDERED: ENOXAPARIN INJ 40 MG/0.4 ML SYR SQ SCH (09:00)
[2019-12-30] MEDS ORDERED: FUROSEMIDE 40 MG TAB PO SCH (09:00)
[2019-12-30] MEDS ORDERED: SACUBITRIL-VALSARTAN 24-26 MG TAB PO SCH (09:00)
[2019-12-30] MEDS ORDERED: ISOSORBIDE MONO EXTENDED REL 60 MG TABCR PO SCH (09:00)
[2019-12-30] MEDS ORDERED: METOPROLOL SUCC 50MG EXT REL TAB PO SCH (09:00)
[2019-12-30] MEDS ORDERED: CITALOPRAM 20 MG TAB PO SCH (09:00)
[2019-12-30] MEDS ORDERED: cefUROXime axetil 250 MG TABLET PO STA (16:55)
[2019-12-30] MEDS ORDERED: cefUROXime axetil 500 MG TAB PO STA (16:55)
[2019-12-30] MEDS ORDERED: DOXYCYCLINE HYCLATE 100 MG CAP PO STA (16:56)
[2019-12-30] MEDS ORDERED: POTASSIUM CHLORIDE 20 MEQ TABCR PO STA (17:24)
--- NOTE | 2019-12-30 17:29 | Discharge Summary ---
Date of Service December 30, 2019 Admission HPI Per Admitting Provider Mr. Elbert Sesay is a pleasant 79yo C male presenting with fever/chills/n/v/d and mild chest discomfort. Patient was feeling yesterday. This morning he developed some left sided chest discomfort while at rest. The pain was moderate, lasted only a few seconds, located in the lower portion of the left chest. Non-pleuritic, non-positional, non-exertional. Later in the day he developed some nausea with three episodes of non-bloody/non-bilious vomiting and some diarrhea followed by chills and fever to 101. Patient has a chronic cough and does not endorse increased cough or sputum. He denies change in taste but r eports poor smell at baseline. No additional complaints at this time. Patient with no travel, no sick contacts, no known contact with SARS-CoV2 positive people. He has been maintaining social distancing measures in his home. He did go to [facility] yesterday with gloves and mask in place. 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 ER Course: Tylenol 650mg PO, NSS 500mL Principal Diagnosis Community acquired pneuonia Discharge Exam General: patient resting comfortably, NAD, non-toxic in appearance, AA&O x 4 Skin: warm, dry, intact, no rashes or lesions HEENT: NC/AT, PERRL, EOMI, anicteric sclera, conjunctiva without injection, external ear normal to inspection and nontender, nares patent, moist mucus membranes, dentition intact, no oropharyngeal lesions, neck supple, trachea midline, no LAD, no thyromegaly, no JVD Heart: +S1/S2, regular, no m/r/g, pacemaker present left chest, mildly tender to palpation, no erythema/edema Lungs: equal air entry bilaterally, no rales/rhonchi/wheezes Abd: +BS, soft, NT/ND, no masses/organomegaly/ascites Ext: warm, 2+ pulses in UE/LE bilaterally, no clubbing/cyanosis or edema Neuro: nonfocal, patient AA&O x 4, speech intact, no facial droop, moving all extremities on command with equal strength 5/5 Discharge Data Allergies Allergy/AdvReac Type Severity Reaction Status Date / Time Sulfa (Sulfonamide Allergy Mild rash Verified 12/06/19 11:45 Antibiotics) olmesartan Allergy Verified 12/06/19 11:45 metoclopramide AdvReac Intermediate Depression Verified 12/06/19 11:45 oxycodone [From OxyContin] AdvReac Intermediate Hallucinati Verified 12/06/19 11:45 ons ciprofloxacin [From Cipro] AdvReac Mild see notes Verified 12/06/19 11:45 lisinopril AdvReac Mild cough Verified 12/06/19 11:45 Consultations 12/29/19 21:27 ED Decision to Admit Stat Hospital Course (1) Pneumonia: 79yo C male with multiple medical comorbidities presents with fevers/chills/nausea/vomiting/diarrhea. Afebrile, hemodynamically stable on arrival. No respiratory distress, adequate saturation on room air. Found to have neutrophil predominant leukocytosis with lymphopenia, elevated procalcitonin level. CXR with minimal interstitial infiltrate noted at the left lung base. -Admit to PCU -Check [employer] respiratory panel -Check LDH, Ddimer, CRP -Check SARS-CoV2 : negative -Maintain isolation precautions, Contact and Airborne until SARS-CoV2 resulted -Follow cultures sent from ER -Ceftriaxone 2gm IV daily, Doxycycline 100mg IV BID for presumed CAP -Supplemental O2 as needed to maintain saturations >90% -Tylenol as needed for pain or fever On day of discharge: Patient improved. Will continue doxycycline and cefuroxime to complete 5 day course. Patient is agreeable to discharge. (2) Chest pain: Patient with brief episode of chest pain earlier today which has since resolved. He has longstanding history of CAD s/p [employer] to RCA, s/p CABG x 3V in 2012. He had a cardiac catheterization performed in 05/2019 which showed patent grafts but disease to SVG to PLB. EKG is V-paced with no obvious evidence of acute ischemia. Troponin is detectable at 0.016, however, decreased from prior values. Presently CP free. He has had history of atypical chest pain in the past. -PCU with continuous cardiac monitoring -Repeat troponin in 8 hours -Continue ASA 81mg po daily -Continue Metoprolol 100mg po daily with holding parameters -Continue Vytorin -Continue Entresto as tolerated. Of note, patient's states that he is only able to tolerated 0.5 tablet BID of Entresto as it has dropped his BP in the past. (3) CAD (coronary artery disease): As above, patient with known CAD s/p prior stenting, s/p CABG x 3V in 2012. He follows with Cardiology, last seen by Dr. Blackwell on 11/09/19 -Continue management as above, ASA/Vytorin/Metoprolol/Entresto/Isosorbide mononitrate (4) Cardiomyopathy: Patient with ischemic cardiomyopathy, chronic systolic heart failure. EF 35-40% per echo in 10/2019. Patient had a dual-chamber Medtronic pacemaker which was placed 09/2017. He had worsening of his LV function thought to be secondary to dyssynchrony as well as difficulty optimizing medical therapies due to symptomatic hypotension, therefore, patient had a biventricular ICD placed by Dr. Austin on 12/06/19. Presently he has no evidence of acutely decompensated CHF. He appears to be slightly volume depleted based on labs and clinical exam. He was administered 500mL NSS in the ER -Continue home medications, ASA, Vytorin, Metoprolol, Entresto and Isosorbide mononitrate as tolerated -will defer further management to pcp. (5) COPD (chronic obstructive pulmonary disease): Chronic. Stable -Continue to monitor (6) Depression: Chronic. Stable -Conitnue Citalopram 10mg po daily (7) GERD (gastroesophageal reflux disease): Chronic. Stable. He reports a chronic cough thought to be secondary to underlying GERD -Continue Nexium Total Time Total Time Spent Total Time Spent (In Minutes): 32 Total Time Includes: Examination of the Patient, Discharge Planning and Medication Reconciliation Discharge Plan Discharge Items Patient Disposition: Home - Self-Care Reason For Visit: CHEST PAIN,PNA,COVID-19 RULE OUT Discharge Diagnosis: Community acquired pneumonia Activity: Resume your previous activity Non-emergency contact: Primary Care Provider Call non-emergency contact if: you have any medication questions Follow-up/Referrals: Molina Austin III, CRNP [Primary Care Provider] - Diet: Heart Healthy Addtl Attending Provider Instructions: You have been hospitalized for an acute medical problem. During your stay at [facility], we have made an effort to correct the problem that brought you to the hospital while keeping you as comfortable as possible. Medications were used to bring your condition under control and your discharge instructions will include directions for any medications you should take after leaving the hospital. Please make sure you see your Primary Care Provider as part of your follow up plan. Pending Studies at Discharge: No Stand-Alone Forms: [facility], Smoking Cessation Medications and DC Order Prescriptions: Continued furosemide 40 mg tablet 40 mg PO DAILY Qty: 30 RF: 11 metoprolol succinate 100 mg tablet extended release 24 hr 100 mg PO DAILY Qty: 90 RF: 3 Entresto 24-26 mg tablet 0.5 tab PO BID Qty: 60 RF: 2 esomeprazole magnesium [Nexium] 40 mg capsule,delayed release(DR/EC) 40 mg PO QPM RF: 0 citalopram 10 mg Tablet 10 mg PO QAM RF: 0 aspirin [Aspir-81] 81 mg Tablet,Delayed Release (Dr/Ec) 81 mg PO QAM RF: 0 ezetimibe-simvastatin [Vytorin 10-40] 10-40 mg Tablet 1 tab PO HS RF: 0 isosorbide mononitrate 120 mg tablet extended release 24 hr 120 mg PO QAM RF: 0 No Action nitroglycerin 0.4 mg tablet, sublingual 0.4 mg SL DIRECTED PRN (Reason: Chest Pain) Qty: 25 RF: 1 Discharge Orders: Discharge Order (Routine); Ordered 12/30/19 Ordered By: Acosta Lopez Admission Data Admit Date/Time: 12/29/19 22:27 Attending Provider: Acosta Lopez Admit Provider: Magalie Ford Primary Care Provider: Molina Austin III Other Interventions: Discharge Summary Assessment (RN) Last Done: 12/30/19 17:19 DC Date/Time DO NOT enter until pt leaves facility: 12/30/19 20:35 Coding Level of Care Code D/C Day Management >30 mins Diagnoses Pneumonia J18.9 Laterality: left Lung location: lower lobe of lung Pneumonia type: due to unspecified organism Chest pain R07.9 Chest pain type: unspecified CAD (coronary artery disease) I25.119 Associated angina: with unspecified angina Coronary Disease-Associated Artery/Lesion type: [place] artery [place] vs. transplanted heart: [place] heart Cardiomyopathy I42.9 Cardiomyopathy type: unspecified COPD (chronic obstructive pulmonary disease) J44.9 COPD type: unspecified COPD Depression F32.9 Depression Type: unspecified GERD (gastroesophageal reflux disease) K21.9 Esophagitis presence: esophagitis presence not specified Time Spent (min) 32
[2019-12-30] MEDS ORDERED: EZETIMIBE/SIMVASTATIN 10/40MG 1 TAB TAB PO SCH (21:00)
[2019-12-30] MEDS ORDERED: PANTOprazole 40 MG TAB PO SCH (21:00)
== END 2019-12-30 20:35 | disposition home or self-care (01) ==
LOC: ED 19:05 → INTOOBSV 22:27 → 2S 22:27 → SUATTDRO 22:27 → 2S 23:10

== ENCOUNTER 2020-01-20 10:00 | Observation (INO) ==
--- NOTE | 2020-01-20 07:41 | History & Physical Bridge Note ---
Date of Service January 20, 2020 History & Physical Bridge Note I have examined the patient, reviewed the History & Physical and in the interval since the performance of the History & Physical I have noted the following changes of clinical significance: no changes noted
[2020-01-20] MEDS ORDERED: MIDAZOLAM HCL 5 MG/ML 1 ML VIAL ONE ×2 (10:26→12:52)
[2020-01-20] MEDS ORDERED: CEFAZOLIN 250 MG/ML 1 GM VIAL ONE (10:26)
[2020-01-20] MEDS ORDERED: fentaNYL citrate 100 MCG/2 ML VIAL ONE ×2 (10:26→12:52)
[2020-01-20] MEDS ORDERED: BACITRACIN INJ 50,000 UNIT VIAL ONE (10:53)
[2020-01-20] MEDS ORDERED: BACITRACIN OINT 0.9 GM PKT ONE (10:53)
[2020-01-20] MEDS ORDERED: LIDOCAINE HCL 1% 20 ML VIAL ONE (10:53)
--- NOTE | 2020-01-20 11:41 | Pre Anesthesia Assessment ---
Date of Service January 20, 2020 Pre Sedation Assessment Vital Signs Temp Resp 01/20/20 10:07 36.5 C 18 Cardiovascular RRR, no murmur, no edema Respiratory normal respiratory effort, lungs clear to auscultation Pre-Sedation Airway Assessment Smoking Status: Former smoker Hx Sleep Apnea: Yes Hx Difficult Intubation: No Short, Thick Neck: No Thyromental Distance: > or= 3.5 Finger Breadths Oral Cavity: + Dentures Mallampati Class: II ASA: ASA3 NPO Status Date of Last Intake of Fluids: 01/19/20 Time of Last Intake of Fluids: 23:00 Date of Last Intake of Solid Food: 01/19/20 Time of Last Intake of Solid Foods: 23:00 Procedure Planning Contraindications for Sedation: none Current Medications Reviewed: Yes Notes The planned sedation has been discussed with the patient. Informed Consent was obtained. I have identified the patient, determined the appropriateness of sedation and have assessed the patient immediately prior to the procedure. All medicine(s) and interventions are by my order.
--- NOTE | 2020-01-20 15:45 | Electrophysiology Report ---
Date of Service January 20, 2020 Electrophysiology Procedure Electrophysiology Procedure Report Preoperative diagnosis: Coronary sinus lead dislodgment Postoperative diagnosis: Same Procedure: Left subclavian venogram Coronary sinus angiogram Left ventricular lead implantation Bipolar biventricular pacemaker explantation Quadripolar biventricular pacemaker implantation Surgeon: Scott Patterson MD Estimated blood loss: 40 cc Complications: None Disposition: Vp Global recovery Procedure details: Fluoroscopy demonstrated that the old coronary sinus lead was in the body of the coronary sinus, not in the branch where it was initially placed. Dye was injected the left arm IV site to opacify the left subclavian vein. The subclavian vein was identified and found to be free of obstruction. Left axillary venipuncture was performed and a guidewire placed through left subclavian vein into the right atrium. A 2 cm incision was made through the old implant scar and carried down to the pectoralis fascia. A Medtronic pacemaker sheath was placed in the left subclavian vein and attempts were made to map and place a his bundle pacing catheter. This was unsuccessful due to tortuosity and anatomic difficulties. Ultimately the coronary sinus was accessed and a good branch was identified. A Graham coronary sinus sheath was advanced to position in the right atrium. It was positioned near the coronary sinus, using an inner guide catheter dye was injected to opacify the office of the coronary sinus and a guidewire was advanced into the coronary sinus. The sheath system was advanced into the coronary sinus. Dye was injected in the coronary sinus in various projections to identify the venous branches. A small but anatomically acceptable branch was identified and a 0.014 inch guidewire was advanced into the branch. Despite multiple attempts a coronary sinus lead could not be advanced into the small vessel. A low-lying branch had been identified during venography and the sheath system was repositioned to access this vessel. A quadripolar left ventricular lead was advanced over a guidewire into good position. The pacing threshold was evaluated in this position as noted on the implant data sheet. The sheath system was then removed from the lead and the lead was attached to the anterior pectoral fascia using 2 sutures of 2-0 silk around the lead collar. During this entire procedure the pacemaker pocket remained closed, the incision was made separate from the pacemaker pocket. The pacemaker pocket was opened by further anesthetizing along the original implant site and incision was made through the scar and carried down to the pacemaker generator. The generator was dissected free of tissue and explanted. The dislodged coronary sinus lead was identified, the sutures were cut holding the sleeve to the pectoralis fashion and the lead was withdrawn without difficulty. The chronic atrial and right ventricular leads were disconnected from the generator and a new biventricular pacemaker was attached to these leads as well as the coronary sinus lead. A new device had to be used as the old device had a bipolar coronary sinus lead attachment and the new lead is a quadripolar. Tyrx pouch was placed over the pacemaker and the pacemaker was placed in the pocket with the leads coiled beneath it, the incision was closed with a running double subcutaneous closure of 3-0 Vicryl followed by running subcuticular skin closure of 4-0 Vicryl. Bacitracin ointment was placed on incision and a dressing applied.
[2020-01-20] MEDS ORDERED: ACETAMINOPHEN 325 MG TAB PO PRN (15:46)
[2020-01-20] MEDS ORDERED: ACETAMINOPHEN W/CODEINE #3 1 TAB PO PRN (15:46)
[2020-01-20] MEDS ORDERED: NITROGLYCERIN SL 0.4 MG/TAB TAB SL PRN (15:48)
--- NOTE | 2020-01-20 15:56 | Electrophysiology Report ---
Date of Service January 20, 2020 Electrophysiology Procedure Electrophysiology Procedure Report See other note for procedure details [facility] Electrophysiology codes Indication for Procedure (1) Displacement of electrode lead of cardiac pacemaker: Pacing Procedure 1: Pacin Multi Pacemaker replacement Procedure 2: Pacin BiV electrode only - stand alone procedure Procedure 3: Pacin Removal perm single lead Miscellaneous Procedures Procedure 1: EP Miscellaneous: 68034 Contrast injection for venography Procedure 2: EP Miscellaneous: 06782-24 Vengraphy, extremity Procedure 3: EP Miscellaneous: 72882-52 Venography, CS supevsion/interp PG Moderate Sedation Codes Moderate Sedation Codes Procedure 1: Sedation/Anesthesia: 34749 Mod Sedation by the same physician;Init15 Min Child Age 5 & Up Procedure 2: Sedation/Anesthesia: 20369 Mod Sedation by the same physician; Ea [id number] Minutes
[2020-01-20] MEDS ORDERED: PANTOprazole 40 MG TAB PO SCH (21:00)
[2020-01-20] MEDS ORDERED: EZETIMIBE/SIMVASTATIN 10/40MG 1 TAB TAB PO SCH (21:00)
--- NOTE | 2020-01-21 07:38 | XRay Report ---
XR chest 2V PA/lateral HISTORY: Status post pacemaker placement. COMPARISON: Chest 01/12/2020. FINDINGS: No pneumothorax. There are poststernotomy changes. Left-sided pacemaker. The leads appear i ntact. The lungs are clear. Old, healed right-sided rib fractures. No pleural effusions. Cardiac silh ouette is top normal in size. Tortuous and partially calcified thoracic aorta. Mild compression defor mities within the mid to lower thoracic spine, unchanged. IMPRESSION: No significant change compared to the prior study. No acute process. No pneumothorax. Left-sided pace maker leads appear intact. ACT 112: Negative or not required by law. Electronically signed by: Sergio Allred M.D. 01/21/2020 7:37 AM
[2020-01-21 07:47] LABS: BUN Creatinine Ratio 21.1 (10-20); Calcium 8.9 mg/dl (8.5-10.1); Creatinine Clr Calc Pharmacy 77.6 ml/min; Est GFR (African American) 86.3; Est GFR (Non-African American) 74.5; Potassium 3.5 mmol/L (3.5-5.1)
[2020-01-21] MEDS ORDERED: CITALOPRAM 20 MG TAB PO SCH (09:00)
[2020-01-21] MEDS ORDERED: ISOSORBIDE MONO EXTENDED REL 60 MG TABCR PO SCH (09:00)
[2020-01-21] MEDS ORDERED: FUROSEMIDE 40 MG TAB PO SCH (09:00)
[2020-01-21] MEDS ORDERED: ASPIRIN 81 MG ECTAB PO SCH (09:00)
[2020-01-21] MEDS ORDERED: METOPROLOL SUCC 50MG EXT REL TAB PO SCH (09:00)
--- NOTE | 2020-01-21 09:49 | Post Anesthesia Assessment ---
Date of Service January 20, 2020 Post Sedation Assessment Vital Signs Temp Pulse Pulse Pulse Resp BP BP 01/21/20 08:18 71 01/21/20 07:46 36.8 C 74 19 136/73 01/21/20 04:46 65 01/21/20 04:01 36.7 C 63 20 100/55 L 01/20/20 23:16 36.4 C L 62 17 108/58 L 01/20/20 18:58 36.7 C 75 16 92/60 L 01/20/20 18:00 73 20 117/68 01/20/20 17:15 77 20 97/57 L 01/20/20 16:45 36.9 C 72 20 104/61 01/20/20 16:25 77 16 88/64 L 01/20/20 16:20 79 16 85/59 L 01/20/20 16:15 78 16 75/55 L 01/20/20 16:00 85 16 87/65 L 01/20/20 15:55 80 16 91/63 L 01/20/20 15:40 81 16 120/83 01/20/20 10:07 36.5 C 18 Pulse Ox 01/21/20 08:18 01/21/20 07:46 93 01/21/20 04:46 01/21/20 04:01 96 01/20/20 23:16 95 01/20/20 18:58 92 01/20/20 18:00 97 01/20/20 17:15 96 01/20/20 16:45 98 01/20/20 16:25 93 01/20/20 16:20 94 01/20/20 16:15 94 01/20/20 16:00 94 01/20/20 15:55 96 01/20/20 15:40 96 01/20/20 10:07 Recovery Score Activity: Moves 4 extremities Respiration: Deep Breath/Cough Circulation: +/-20% PreAnes Value Consciousness: Fully Awake Oxygen Saturation: > 92% On Room Air Post Anesthesia Score: 10 Discharge Sedation Level of Care: Fast Track Phase II Post Sedation Plan On clinical assessment, the patient appears to have tolerated the sedation without complications. Patient is recovering as anticipated. Patient will continue to be monitored by nursing and may be discharged when sedation discharge criteria are met per below protocol. Upon Completions of procedure up to 15 minutes continue every 5 minute vital signs and the P.A.R. score; then discharge to a Phase I or Fast Track to Phase II per the following guidelines: * Discharge Patient to appropriate Phase II area if PAR is 8 or greater or return to pre- procedure baseline. The post - procedure orders will be as directed. * If PAR score is less than 8 or not return to pre-procedure baseline then patient will follow Phase I monitoring till PAR is reached for Phase II. The Phase I may be done in procedure room or may call to secure a Phase I area. * If naloxone or flumazenil are used for reversal, hold in Phase I for continued monitoring from when last reversal dose was given for a minimum of 60 minutes or longer pending the nurse and/or physician discretion of patient condition before discharge to Phase II. Please call the Sedation Physician to re-evaluate and complete post-note for discharge to Phase II area. Do NOT discharge from procedure sedation or Phase 1 until post- sedation evaluation note is complete by procedure /sedation MD Sedation Discharge Instructions to be given to the patient at discharge to home.
--- NOTE | 2020-01-21 10:05 | Cardiology Progress Note ---
Date of Service January 21, 2020 Assessment & Plan (1) S/P biventricular cardiac pacemaker procedure: He is doing well post left ventricular lead revision yesterday. The site looks good, the lead is in good position on x-ray, measurements are excellent. His laboratories show an improvement in creatinine following dye yesterday. He is stable for discharge today. Admission and Anticipated Discharge Date Admission Date: January 20, 2020 Anticipated date of discharge: 01/21/20 Subjective Patient feels well today, he does have some minor incisional discomfort but in general feels better. No chest pain or shortness of breath. Physical Exam Physical Exam: The implantation site looks good, the incision is clean and dry with no bleeding. The area is a little bit swollen and I suspect he had some subcutaneous bleeding and will probably get some ecchymosis but that is not unusual and is does not seem serious. Results & Data ([facility]) Vital Signs (Past 12 Hours) Vital Signs Temp Pulse Pulse Pulse Resp BP Pulse Ox 01/21/20 08:18 71 01/21/20 07:46 36.8 C 74 19 136/73 93 01/21/20 04:46 65 01/21/20 04:01 36.7 C 63 20 100/55 L 96 01/20/20 23:16 36.4 C L 62 17 108/58 L 95 Laboratory Results Comprehensive Metabolic Panel 01/21/20 Range/Units 07:04 Sodium 137 (136-145) mmol/L Potassium 3.5 (3.5-5.1) mmol/L Chloride 106 (98-107) mmol/L Carbon Dioxide 26 (21-32) mmol/L BUN 20 H (7-18) mg/dl Creatinine 0.97 (0.6-1.4) mg/dl Glucose 107 H (70-99) mg/dl Calcium 8.9 (8.5-10.1) mg/dl Intake and Output 01/20/20 01/21/20 01/21/20 22:59 06:59 14:59 Intake Total 440 / 440 Output Total 270 / 270 Balance 170 / 170 Intake: Oral 440 / 440 Output: Urine 270 / 270 Other: # Unmeasured Voids 1 1 Weight 100.2 kg 98.7 kg Diagnostic Findings Postop electrocardiogram: Appropriate biventricular pacing with reasonable QRS morphology Telemetry: Ventricular pacing throughout Pacemaker evaluation: Excellent pacing and sensing characteristics Chest x-ray: Good lead position, no pneumothorax PG Care Time/CCT Total # of Minutes Spent Total Time Spent with Patient: Total time spent is greater than 50% in coordination of care (as documented) at patient's floor/unit and/or counseling patient: Coding Level of Care Code 13515 Post Operative Follow-Up Diagnoses S/P biventricular cardiac pacemaker procedure Z95.0
--- NOTE | 2020-01-21 16:56 | Electrocardiogram Report ---
Test Reason : Blood Pressure : / mmHG Vent. Rate : 075 BPM Atrial Rate : 075 BPM P-R Int : 128 ms QRS Dur : 150 ms QT Int : 452 ms P-R-T Axes : 017 138 103 degrees QTc Int : 504 ms Atrial-sensed ventricular-paced rhythm Biventricular pacemaker detected Abnormal ECG When compared with ECG of 29-DEC-2019 19:48, Previous ECG has undetermined rhythm, needs review Confirmed by Cortes Casanova ([id number]) on 01/21/2020 4:56:23 PM Referred By: Scott Patterson Confirmed By:Cortes Casanova
--- NOTE | 2020-01-27 11:25 | Discharge Summary ---
Date of Service January 27, 2020 Admission HPI Per Admitting Provider This is a 79-year-old male with a history of coronary artery disease, peripheral arterial disease, mesenteric artery stenosis, hypertension, hyperlipidemia, COPD and obstructive sleep apnea as well as syncope and bradycardia for which he had a pacemaker implanted. His coronary artery disease history includes PCI of his right coronary artery in 2009 and subsequently right coronary artery perforation 2012 where he required emergency bypass surgery with a ROBERTO to the LAD, saphenous vein graft to the posterior lateral branch and saphenous vein graft to the ramus intermedius. This was performed at [facility]. He did have exercise- induced symptoms and an abnormal nuclear stress test therefore repeat catheterization in [address] [facility] showed his grafts to be patent and test stable [place] vessel disease. He presented with syncope in 2018, likely he had other episodes of syncope although he minimizes his symptoms, and was having difficulty with exertion as well as intermittent lightheadedness. He was noted to be bradycardic in the emergency room at 40 bpm and what appeared to be 2-1 AV block as well as having a right bundle branch block pattern. A Lyme titer was negative and therefore he underwent dual-chamber pacemaker implantation on October 06, 2017. At that time his left ventricular function was normal. More recently he has been having increasing exertional symptoms. In April 2019 he was hospitalized with chest discomfort and a mild troponin elevation, he was transferred to [facility] catheterization was again unchanged from prior. He appears now to have progressive left ventricular dysfunction by echocardiography with an ejection fraction of 35 to 40% on October 25, 2019. 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 He has also had episodes of atrial atrial flutter and tachycardia identified on pacemaker monitoring as well as on Holter monitoring starting in 2018. He has been having worsening of chest discomfort and shortness of breath daily in the morning, not necessarily exertional but it appears somewhat related to exertion. He does have periods of presyncope which are ill-defined. In general he feels that he is having progressive worsening in his symptoms. He does not have a lot of stamina and cannot perform strenuous activity. He has had no syncope. With his ejection fraction falling to the 35 to 40% range I wanted to try to optimize his medical therapy and we therefore tried to titrate his beta-alyssa and he is also on Entresto. He has a lot of difficulty with symptomatic hypotension, including presyncope, and I had increased his metoprolol succinate to 200 mg daily November 22, 2019 but very quickly he had to reduce it to 100 mg daily. He does have Entresto 24/26 mg, however he could not even tolerate that starting dose due to hypotension. He continues to be very fatigued and wants to do more than he is able to, he continues to have daily chest discomfort always associated with a headache. I therefore upgraded his system from a dual-chamber for pacemaker to a biventricular pacemaker with addition of a coronary sinus lead. Coronary sinus access was difficult, ultimately we were able to implant a lead however the lead was not well seated distally although was in a good anatomic position for biventricular pacing. A bipolar lead was used rather than the usual quadripolar lead due to the proximal position. He felt well initially, with improvement in his symptoms, however after several weeks began to feel as he did before and noticed a significant change in his symptoms. He was evaluated on January 12, 2020 and it was observed that his left ventricular capture threshold was beyond the ability of the device therefore he was not biventricular pacing. Fortuitously he had been in the emergency room on December 29, 2019 and a chest x-ray was done for different reason and this showed that the lead was still in the coronary sinus, although had withdrawn somewhat. A repeat chest x-ray done on January 12, 2020 showed a similar position. At surgery the lead had been in a more distal position but evidently was not stable and it had retracted somewhat but remained in the coronary sinus. With clinical improvement but now with lack of left ventricular capture we are going to reposition the coronary sinus lead. Admission Exam Per Admitting Provider Constitutional: Alert, cooperative and in no distress. HEENT: Unremarkable Neck: No jugular venous distention, carotid pulses are normal and equal bilaterally without bruits. Pulmonary: Clear to auscultation bilaterally. Cardiac: Regular rhythm with no murmur, gallop or rub. Abdomen: Soft, nontender with normal bowel sounds. Extremities: No edema. Distal pulses intact. Neurologic: No focal findings. Gait is steady. Skin: The device site is well-healed without erythema, swelling or tenderness. No rash, ecchymoses or petechiae. 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 Discharge Data Allergies Allergy/AdvReac Type Severity Reaction Status Date / Time Sulfa (Sulfonamide Allergy Mild rash Verified 01/13/20 14:00 Antibiotics) olmesartan Allergy Verified 01/12/20 14:05 metoclopramide AdvReac Intermediate Depression Verified 01/13/20 14:00 oxycodone [From OxyContin] AdvReac Intermediate Hallucinati Verified 01/13/20 14:00 ons ciprofloxacin [From Cipro] AdvReac Mild see notes Verified 01/13/20 14:00 lisinopril AdvReac Mild cough Verified 01/13/20 14:00 Procedures Performed Operation Date: 01/20/20 11:00 Actual Procedures p Pacer Gen Change Multiple - Scott Patterson MD s Lead Reposition LV - Scott Patterson MD s Lead LV (No Priopr Implant) - Scott Patterson MD s Venogram, Unilateral - Scott Patterson MD s Bundle of his Recording - Scott Patterson MD Ordered Studies 01/20/20 07:00 EP Lab Images for PACS ONCE Hospital Course (1) Displacement of electrode lead of cardiac pacemaker: His lead was repositioned on the day of admission, that was somewhat difficult to do but ultimately we had good position and there appeared to be no complications. There is no pneumothorax on chest x-ray, kidney function has not deteriorated after the IV dye load, the device is working well on the monitor and when evaluated with the pacemaker python programmer, chest x-ray shows good lead position. He is therefore stable for discharge. Total Time Total Time Spent Total Time Spent (In Minutes): 25 Total Time Includes: Examination of the Patient, Discharge Planning, Medication Reconciliation and Other (Review of telemetry and pacemaker interrogation) Discharge Plan Discharge Items Patient Disposition: Home - Self-Care Reason For Visit: Left Ventricular Lead Dislodgement Discharge Diagnosis: Left ventricular lead revision Activity: Per Instructions section Bathing: Keep incision dry Driving/Machine Use: No limitations Non-emergency contact: Primary Care Provider Call non-emergency contact if: you have any medication questions Follow-up/Referrals: Scott Patterson MD [Physician] - 01/24/20 10:00 am Molina Austin III, CRNP [Primary Care Provider] - Diet: Heart Healthy Addtl Attending Provider Instructions: ACTIVITY RECOMMENDATIONS: * Do not raise affected arm over head for 2 weeks. SPECIAL CARE INSTRUCTIONS: * If bleeding occurs, apply direct pressure to area for 5 minutes. * Call your doctor if you have severe pain, fever, drainage or bleeding at site. * Keep dressing on and dry for 48 hours then remove. * Keep any scheduled doctor's appointment. * Implant Card - hand held device with website information given. SKIN IRRITATION: * You may experience some redness and/or swelling in the area where radiation was administered. If any skin irritation occurs, please contact your family physician. FOLLOW UP VISIT: Keep any scheduled doctor appointments. Pending Studies at Discharge: No Stand-Alone Forms: My [facility] [place], Smoking Cessation Medications and DC Order Prescriptions: Continued furosemide 40 mg tablet 40 mg PO DAILY Qty: 30 RF: 11 metoprolol succinate 100 mg tablet extended release 24 hr 100 mg PO DAILY Qty: 90 RF: 3 nitroglycerin 0.4 mg tablet, sublingual 0.4 mg SL DIRECTED PRN (Reason: Chest Pain) Qty: 25 RF: 1 esomeprazole magnesium [Nexium] 40 mg capsule,delayed release(DR/EC) 40 mg PO QPM RF: 0 citalopram 10 mg Tablet 10 mg PO QAM RF: 0 aspirin [Aspir-81] 81 mg Tablet,Delayed Release (Dr/Ec) 81 mg PO QAM RF: 0 ezetimibe-simvastatin [Vytorin 10-40] 10-40 mg Tablet 1 tab PO HS RF: 0 isosorbide mononitrate 120 mg tablet extended release 24 hr 120 mg PO QAM RF: 0 Discharge Orders: Discharge Order (Routine); Ordered 01/21/20 Ordered By: Scott Patterson Admission Data Admit Date/Time: 01/20/20 15:03 Attending Provider: Scott Patterson Admit Provider: Scott Patterson Primary Care Provider: Molina Austin III Other Interventions: Discharge Summary Assessment (RN) Last Done: 01/21/20 10:00 DC Date/Time DO NOT enter until pt leaves facility: 05/29/20 12:00 Coding Level of Care Code 61936 OBS Care - Discharge Diagnoses Displacement of electrode lead of cardiac pacemaker T82.120A
== END 2020-01-21 12:00 | disposition home or self-care (01) ==
LOC: 2S 10:00 → EP 10:00

== ENCOUNTER 2025-05-16 18:17 | Inpatient (IN) ==
[2025-05-16] MEDS: SODIUM CHLORIDE 0.9% 1,000 ML IV ONE (19:24)
[2025-05-16 19:35] LABS: Hematocrit (blood only) 33.6 % (42.0-52.0); Hemoglobin 10.6 g/dl (14.0-18.0); Immature Granulocytes # (auto) 0.06 K/uL (0.01-0.20); Immature Granulocytes % (auto) 0.5 %; Mean Corpuscular Hemoglobin 26.0 pg (25.0-34.0); Mean Corpuscular Volume 82.6 fL (80.0-100.0); Platelet Count 119 K/uL (130-400); RDW Standard Deviation 41.9 fL (36.4-46.3); Red Blood Count 4.07 M/uL (4.70-6.10); White Blood Count 11.63 K/ul (4.8-10.8)
--- NOTE | 2025-05-16 19:39 | Emergency Department Note ---
Impression & Plan Generalized weakness, Chest pain, Pneumonia, Cellulitis of right leg ED Provider Note HISTORY OF PRESENT ILLNESS: Patient is an 85-year-old male presenting with generalized weakness, chest pain and shortness of breath. Patient has dementia and reports that he started having chest pain and shortness of breath today. at bedside supplies further history and reports that the patient had woken up later today and was more lethargic than normal. However, after breakfast he was feeling slightly improved and he went to his hunting camp. However, while at the hunting camp he started to feel nauseous and weak and his picked him up from the camp. She states that he seemed to be rubbing his right knee and she looked and saw that it was red and swollen. States the patient was complaining of some shortness of breath as well. She reports that he has a significant cardiac history and takes a baby aspirin daily. She reports that he has multiple cardiac stents and has a history of a perforated right coronary artery after a cardiac cath and has subsequently had bypass surgery. On arrival to the ER, the patient is denying any chest pain. No known trauma to his right knee. They do live in the [facility]. No known tick exposures. No reported fevers, but the patient was complaining of feeling chilled earlier today. ROS: as above PHYSICAL EXAM: Constitutional: Patient appears in no acute distress. HENT: Head: Normocephalic and atraumatic. Eyes: EOMI, PERRL Mouth/Throat: Mucous membranes moist. Neck: Trachea midline. Neck supple. Cardiovascular: Paced rhythm. No murmurs, rubs or gallops. Intact distal pulses. Pulmonary/Chest: No respiratory distress. Breath sounds clear and equal bilaterally. No wheezes or rales. Abdominal: Abdomen soft, no tenderness, rebound or guarding. Musculoskeletal: - RLE: No obvious redness or swelling noted to the knee. Patient is able to flex and extend at the knee. Patient is noted to have some redness and swelling just inferior to the knee and extending distally towards his ankle and laterally and medially. Erythematous region is warm to the touch. Area is tender to palpation. No palpable crepitus. Intact DP and PT pulses. Skin: Warm and dry. No rash, erythema, pallor or cyanosis Neurological: Alert and keenly responsive. CN II-XII grossly intact, moving all extremities equally and fully. MDM: - Vitals signs showed hypotension. - History obtained via patient and patient's , given patient's dementia. History as above. - Chronic conditions affecting care: HLD; CAD (s/p PCI and CABG); COPD; prostate cancer; sick sinus syndrome (s/p pacemaker placement) - Differential diagnoses include, but are not limited to: UTI; pneumonia; CVA; cellulitis; septic arthritis; necrotizing fasciitis; Lyme's disease - Order placed for continuous cardiac monitoring. At this time, monitor showed rate of 85 bpm with paced rhythm, per my interpretation. - External medical records reviewed. Wellness visit note dated 04/07/2025 was reviewed. Patient was seen for his Medicare wellness exam and for his regular scheduled follow-up. - EKG image interpreted by myself showed paced rhythm. Rate 72 bpm. - Laboratory workup interpreted by myself showed leukocytosis (WBC 11.63); thrombocytopenia (plt 119); stable electrolytes; normal procalcitonin; normal troponin; normal lactate - Negative Lyme, anaplasmosis/babesia smears - UA negative for infection - CXR image reviewed and interpreted by myself shows what appears to be a potential left sided pneumonia, per my interpretation. Radiology notes patchy left mid to lower lung pulmonary densities concerning for mild pneumonia. - Xray right knee shows moderate infrapatellar soft tissue swelling. - Patient given 1L NS. Patient's reports that his blood pressures are always low. He was given 2 g IV Rocephin and 100 mg oral doxycycline for pneumonia coverage. - Swelling and erythema to the right anterior leg is appearing concerning for a cellulitic etiology. - Discussion was had with case assistant about patient's case and need for admission - Hospitalist consulted for admission - Patient admitted to [facility] for further evaluation and management. ASSESSMENT AND PLAN: Diagnosis: Generalized weakness; chest pain; pneumonia; right lower extremity cellulitis Plan: Admit Past Med/Surg History Problem List (Updated 05/16/25 @ 22:28 by Tressa Deleon MD) Cellulitis of right leg (Acute) Pneumonia (Acute) Chest pain (Acute) Generalized weakness (Acute) Urinary incontinence Fracture of toe of left foot Open wound of great toe Gastroenteritis due to norovirus (~08/28/24) Skin tear of right upper extremity Hyperlipidemia Bradycardia Near syncope Prostate cancer "DIAGNOSIS: Prostate, adenocarcinoma, codi 3 + 3, PSA 7.3, cT1c, group I Prostate Volume by U/S - 26.0 cc PSA Density - 0.280" Right knee DJD Incontinence URINARY Obstructive jaundice CAD (coronary artery disease) H/O atrial flutter Bladder fistula EILEEN on CPAP Essential hypertension COPD (chronic obstructive pulmonary disease) Non-ST elevation (NSTEMI) myocardial infarction GERD (gastroesophageal reflux disease) Dysphagia Depression Mixed conductive and sensorineural hearing loss of right ear with restricted hearing of left ear CHF (congestive heart failure) (Acute) Cardiomyopathy SSS (sick sinus syndrome) Biventricular cardiac pacemaker in situ Atrial fibrillation Frequent unifocal PVCs Iliac aneurysm Dementia Bladder stone Bladder neck contracture Pacemaker lead malfunction Hx of cardiac pacemaker (Chronic) 2/2 SSS/high grade AVB; [employer] implanted 2017 Last pacer check: within the last 6 months had pacer check-early [address] [facility] cardio/Dr. 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 Recurrent UTI NSVT (nonsustained ventricular tachycardia) Low testosterone Laryngopharyngeal reflux Impotence, organic Hypertension Frequent PVCs COPD with emphysema Urethral stricture Fistula History of urinary incontinence SMA stenosis A-fib Pulmonary HTN CAD (coronary artery disease) History of prostate cancer Kyphosis GERD (gastroesophageal reflux disease) Sleep apnea Hx of myocardial infarction Rosacea Surgical History History of ERCP Hx laparoscopic cholecystectomy S/P CABG x 3 S/P biventricular cardiac pacemaker procedure History of coronary artery bypass graft H/O three vessel coronary artery bypass S/P placement of cardiac pacemaker S/P CABG (coronary artery bypass graft) H/O cystoscopy Hx of bilateral cataract extraction Hx of colonoscopy Hx of tooth extraction History of arthroplasty of right knee History of robot-assisted laparoscopic radical prostatectomy History of cardiac cath Family History Mother Hypertension Breast cancer Father Cardiac disorder Myocardial infarction Denies family history of Clotting disorder Social History Smoking Status: Never smoker Tobacco Type: Cigarettes Age Started Using Tobacco: 21; Age Quit Using Tobacco: 48; packs per day: 1; Second Hand Exposure: No; Do You Dip or Chew Tobacco: No; Hx Alcohol Use: Yes Alcohol type: beer Hx Substance Use: No Preferred Language: Azeri Communication Ability: Effective Visual Impairment: Limited 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: No Beliefs That Will Affect Care: Temple Temple Beliefs: Bahai marital status: Current Living Situation: Spouse 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 Safe at Home: Yes Childhood Exposure to Second-Hand Smoke: Yes caffeine: No during the past year weight has: decreased > 10 lbs Physical Activity Frequency: Daily Physical Activity Frequency Comment: walks dogs daily Seatbelt Use: always Sunscreen Use: Yes Assistive Devices: Denture - Upper, Denture - Lower and Glasses Allergies Allergies Allergy/AdvReac Type Severity Reaction Status Date / Time Sulfa (Sulfonamide Allergy Mild rash Verified 05/16/25 19:50 Antibiotics) lisinopril AdvReac Intermediate cough Verified 05/16/25 19:50 metoclopramide AdvReac Intermediate Depression Verified 05/16/25 19:50 oxycodone [From OxyContin] AdvReac Intermediate Hallucinati Verified 05/16/25 19:50 ons ciprofloxacin [From Cipro] AdvReac Unknown see notes Verified 05/16/25 19:50 Home Meds Home Medications Medication Instructions Recorded Confirmed multivitamin (Daily Multi-Vitamin 1 tab PO DAILY 09/07/20 05/16/25 tablet) donepezil 10 mg tablet 10 mg PO HS 12/03/24 05/16/25 memantine 10 mg tablet 10 mg PO BID 12/03/24 05/16/25 cholecalciferol (vitamin D3) 25 4,000 unit PO DAILY 04/07/25 05/16/25 mcg (1,000 unit) capsule isosorbide mononitrate 60 mg 120 mg PO QAM 04/07/25 05/16/25 tablet,extended release 24 hr aspirin 81 mg tablet,delayed 81 mg PO QAM 05/16/25 05/16/25 release sacubitril 24 mg-valsartan 26 mg 0.5 tab PO QAM 05/16/25 05/16/25 tablet (Entresto) Previous Rx's Medication Instructions Recorded sertraline 100 mg tablet (Zoloft) 100 mg PO QAM #90 tabs 03/09/25 esomeprazole magnesium 40 mg 40 mg PO QPM #90 caps 03/18/25 capsule,delayed release (Nexium) ezetimibe 10 mg-simvastatin 40 mg 1 tab PO HS #90 tabs 03/18/25 tablet (Vytorin) furosemide 40 mg tablet 40 mg PO QAM #90 tabs 03/18/25 metoprolol succinate 50 mg 50 mg PO DAILY #90 tabs 03/18/25 tablet,extended release 24 hr nitroglycerin 0.4 mg sublingual 0.4 mg sublingual DIRECTED PRN 03/18/25 tablet Chest Pain #25 tabs diaper,brief,adult,disposable #300 ea 04/07/25 reusable chux #10 ea 04/07/25 Results & Data (ED) Vital Signs Vital Signs - 24 hr 05/16/25 18:20 05/16/25 18:48 05/16/25 20:02 Temperature 37.1 C Temperature Source Oral Pulse Rate 82 72 Pulse Rate [Left Apical] Pulse Rate [Right Finger] 71 Respiratory Rate 18 17 Respiratory Effort / Characteristics Non-Labored Spontaneous Non-Labored Spontaneous Respiratory Depth Normal Normal Respiratory Pattern Regular Regular Blood Pressure 96/60 L 88/58 L Blood Pressure [Right Arm] 89/56 L Blood Pressure Mean 72 66 Blood Pressure Mean [Right Arm] 67 Pulse Oximetry 94 95 94 Oxygen Delivery Method Room Air Room Air Room Air Sepsis Recent Fever Within 48 Hours No Sepsis New/Unexplained Change in Mental Status N/A Sepsis Action Taken by Nursing No Action Required 05/16/25 20:22 05/16/25 20:31 05/16/25 21:01 Temperature Temperature Source Pulse Rate 73 77 71 Pulse Rate [Left Apical] Pulse Rate [Right Finger] Respiratory Rate 21 21 Respiratory Effort / Characteristics Respiratory Depth Respiratory Pattern Blood Pressure 96/59 L 93/46 L Blood Pressure [Right Arm] Blood Pressure Mean 76 56 Blood Pressure Mean [Right Arm] Pulse Oximetry 98 Oxygen Delivery Method Room Air Sepsis Recent Fever Within 48 Hours Sepsis New/Unexplained Change in Mental Status Sepsis Action Taken by Nursing 05/16/25 21:30 05/16/25 22:10 Temperature Temperature Source Pulse Rate 74 Pulse Rate [Left Apical] 85 Pulse Rate [Right Finger] Respiratory Rate 20 24 Respiratory Effort / Characteristics Non-Labored Spontaneous Respiratory Depth Normal Respiratory Pattern Regular Blood Pressure 87/57 L Blood Pressure [Right Arm] 105/78 Blood Pressure Mean 67 Blood Pressure Mean [Right Arm] 87 Pulse Oximetry 96 Oxygen Delivery Method Room Air Sepsis Recent Fever Within 48 Hours Sepsis New/Unexplained Change in Mental Status Sepsis Action Taken by Nursing Laboratory Data 05/16/25 19:15 05/16/25 19:15 Lab Results 05/16/25 05/16/25 05/16/25 Range/Units 19:15 20:40 22:05 WBC 11.63 H (4.8-10.8) K/ul RBC 4.07 L (4.70-6.10) M/uL Hgb 10.6 L (14.0-18.0) g/dl Hct 33.6 L (42.0-52.0) % MCV 82.6 (80.0-100.0) fL MCH 26.0 (25.0-34.0) pg MCHC 31.5 L (32.0-36.0) g/dL RDW Std Deviation 41.9 (36.4-46.3) fL RDW Coeff of Ricky 14.0 (11.5-14.5) % Plt Count 119 L (130-400) K/uL MPV 10.7 (9.4-12.4) fL Immature Gran % (Auto) 0.5 % Neut % (Auto) 89.2 % Lymph % (Auto) 3.1 % [place]estone % (Auto) 6.4 % Eos % (Auto) 0.7 % Baso % (Auto) 0.1 % Neut # (Auto) 10.37 H (1.40-6.50) K/uL Lymph # (Auto) 0.36 L (1.20-3.40) K/uL Limestone # (Auto) 0.75 H (0.11-0.59) K/uL Eos # (Auto) 0.08 (0.00-0.50) K/uL Baso # (Auto) 0.01 (0.00-0.20) K/uL Immature Gran # (Auto) 0.06 (0.01-0.20) K/uL Sodium 137 (136-145) mmol/L Potassium 3.8 (3.5-5.1) mmol/L Chloride 102 (98-107) mmol/L Carbon Dioxide 28 (21-32) mmol/L Anion Gap 7 (3-11) BUN 22 (6-23) mg/dl Creatinine 1.13 (0.6-1.4) mg/dl Est Cr Clr Drug Dosing 62.4 ml/min eGFR 64.49 BUN/Creatinine Ratio 19.5 (10-20) Glucose 114 H (70-99(Fasting)) mg/dl Lactate 0.8 (0.4-2.0) mmol/L Calcium 9.0 (8.6-10.3) mg/dl Magnesium 2.0 (1.7-2.4) mg/dl Total Bilirubin 0.8 (0.2-1.0) mg/dl Direct Bilirubin 0.2 (0-0.2) mg/dl AST 15 (13-39) U/L ALT 10 (7-52) U/L Alkaline Phosphatase 59 (34-104) U/L Troponin I High Sens 7.8 (0-20) pg/ml Total Protein 7.1 (6.0-8.3) gm/dl Albumin 4.1 (3.4-5.0) gm/dl Procalcitonin 0.07 (0-0.5) ng/ml Urine Color Yellow Urine Appearance Clear (Clear) Urine pH 5.5 (4.5-7.5) Ur Specific Deposit 1.019 (1.000-1.030) Urine Protein Negative (Negative) Urine Glucose (UA) Negative (Negative) Urine Ketones Negative (Negative) Urine Blood Negative (Negative) Urine Nitrite Negative (Negative) Urine Bilirubin Negative (Negative) Urine Urobilinogen Negative (Negative) Ur Leukocyte Esterase Negative (Negative) Urine Comment Anaplasma Smear See Comment Babesia Smear See Comment Lyme Disease Screen Negative (Negative) Administered Medications Discontinued Medications Doxycycline Hyclate (Doxycycline Hyclate 100 Mg Cap) 100 mg PO NOW STA Stop: 05/16/25 20:30 Last Admin: 05/16/25 20:43 Dose: 100 mg Documented By: JASWANT Sodium Chloride (Nss) 1,000 mls @ 999 mls/hr IV .Q1H1M ONE Stop: 05/16/25 19:59 Last Infusion: 05/16/25 21:13 Dose: Infused Documented By: Admin: 05/16/25 19:24 Dose: 999 mls/hr Documented By: JASWANT Ceftriaxone Sodium (Rocephin) 2,000 mg in 50 mls @ 100 mls/hr IV NOW STA Stop: 05/16/25 20:58 Last Infusion: 05/16/25 21:13 Dose: Infused Documented By: [facility] Admin: 05/16/25 20:43 Dose: 100 mls/hr Documented By: [facility] Imaging Data Radiologist's Impression: Chest X-Ray 05/16/25 18:58 EXAM: Portable AP chest radiograph TECHNIQUE: AP portable radiograph of the chest was obtained. INDICATION: Shortness of breath Comparison: Chest radiograph April 07, 2023 FINDINGS: LINES and TUBES: Left-sided cardiac ICD with leads projecting over the right atrium, the coronary sinus and the right ventricle the heart. CARDIOVASCULAR: Cardiac silhouette is stably enlarged in size with redemonstrated postoperative changes of the heart. Atherosclerosis of the thoracic aorta. LUNGS/PLEURA: Patchy left mid to lower lung pulmonary densities are suggested. Small pleural fluid may be present no discernible pneumothorax. OSSEOUS/OTHER: No displaced acute osseous process identified. Median sternotomy wires. IMPRESSION: Patchy left mid to lower lung pulmonary densities are suggested and may represent mild pneumonia. Congestive changes of the cardiovascular system as above. Electronically signed by Masoud Raza 05-16-2025 8:27 PM Knee X-Ray 05/16/25 19:35 INDICATION: Pain TECHNIQUE: 2 views of the right knee were obtained. COMPARISON: Right knee radiographs September 21, 2017 FINDINGS: No displaced acute osseous process is identified. Redemonstrated arthroplasty changes with components in anatomic alignment. Small suprapatellar joint fluid. Moderate infrapatellar soft tissue swelling is seen. Extensive vascular calcifications. IMPRESSION: No displaced acute osseous process is identified. Moderate infrapatellar soft tissue swelling is seen. Electronically signed by Masoud Raza 05-16-2025 8:29 PM Discharge Plan Visit Data Chief Complaint: Knee Injury/Pain Stated Complaint: R KNEE PAIN ED Provider: Tressa Deleon Discharge Problem: Generalized weakness, Chest pain, Pneumonia, Cellulitis of right leg Condition: Fair Forms Stand Alone Forms: Quip Prescriptions Prescriptions: No Action sertraline [Zoloft] 100 mg tablet 100 mg PO QAM Qty: 90 3RF multivitamin [Daily Multi-Vitamin] Tablet 1 tab PO DAILY cholecalciferol (vitamin D3) 25 mcg (1,000 unit) capsule 4,000 unit PO DAILY esomeprazole magnesium [Nexium] 40 mg capsule,delayed release(DR/EC) 40 mg PO QPM Qty: 90 3RF ezetimibe-simvastatin [Vytorin 10-40] 10-40 mg tablet 1 tab PO HS Qty: 90 3RF furosemide 40 mg tablet 40 mg PO QAM Qty: 90 3RF metoprolol succinate 50 mg tablet extended release 24 hr 50 mg PO DAILY Qty: 90 3RF nitroglycerin 0.4 mg tablet, sublingual 0.4 mg SL DIRECTED PRN (Reason: Chest Pain) Qty: 25 2RF Rx Instructions: PLACE ONE TABLET UNDER THE TONGUE EVERY 5 MINUTES FOR UP TO 3 DOSES OVER 15 MINUTES IF NEEDED FOR CHEST PAIN isosorbide mononitrate 60 mg tablet extended release 24 hr 120 mg PO QAM (DME) diaper,brief,adult,disposable Misc See Rx Instructions .Route Qty: 300 5RF Rx Instructions: Use up to 10 diapers per day (DME) reusable chux See Rx Instructions .Route .MEDSUPPLY Qty: 10 0RF Rx Instructions: As directed memantine 10 mg tablet 10 mg PO BID donepezil 10 mg tablet 10 mg PO HS aspirin 81 mg Tablet,Delayed Release (Dr/Ec) 81 mg PO QAM sacubitril-valsartan [Entresto] 24-26 mg tablet 0.5 tab PO QAM Referrals Referrals: Jefferson Yee CRNP [Primary Care Provider] -
[2025-05-16 19:52] LABS: Alanine Aminotransferase 10.0 U/L (7-52); Albumin Level 4.1 gm/dl (3.4-5.0); Alkaline Phosphatase 59.0 U/L (34-104); Anion Gap 7.0 (3-11); Bilirubin,Total 0.8 mg/dl (0.2-1.0); Blood Urea Nitrogen 22.0 mg/dl (6-23); Calcium 9.0 mg/dl (8.6-10.3); Carbon Dioxide 28.0 mmol/L (21-32); Chloride 102.0 mmol/L (98-107); Creatinine Clr Calc Pharmacy 62.4 ml/min; Glucose 114.0 mg/dl (70-99(Fasting)); Magnesium 2.0 mg/dl (1.7-2.4); Potassium 3.8 mmol/L (3.5-5.1); Sodium 137.0 mmol/L (136-145); Total Protein 7.1 gm/dl (6.0-8.3)
--- NOTE | 2025-05-16 20:27 | XRay Report ---
EXAM: Portable AP chest radiograph TECHNIQUE: AP portable radiograph of the chest was obtained. INDICATION: Shortness of breath Comparison: Chest radiograph April 07, 2023 FINDINGS: LINES and TUBES: Left-sided cardiac ICD with leads projecting over the right atrium, the coronary sinus and the right ventricle the heart. CARDIOVASCULAR: Cardiac silhouette is stably enlarged in size with redemonstrated postoperative changes of the heart. Atherosclerosis of the thoracic aorta. LUNGS/PLEURA: Patchy left mid to lower lung pulmonary densities are suggested. Small pleural fluid may be present no discernible pneumothorax. OSSEOUS/OTHER: No displaced acute osseous process identified. Median sternotomy wires. IMPRESSION: Patchy left mid to lower lung pulmonary densities are suggested and may represent mild pneumonia. Congestive changes of the cardiovascular system as above. Electronically signed by Masoud Raza 05-16-2025 8:27 PM
--- NOTE | 2025-05-16 20:30 | XRay Report ---
INDICATION: Pain TECHNIQUE: 2 views of the right knee were obtained. COMPARISON: Right knee radiographs September 21, 2017 FINDINGS: No displaced acute osseous process is identified. Redemonstrated arthroplasty changes with components in anatomic alignment. Small suprapatellar joint fluid. Moderate infrapatellar soft tissue swelling is seen. Extensive vascular calcifications. IMPRESSION: No displaced acute osseous process is identified. Moderate infrapatellar soft tissue swelling is seen. Electronically signed by Masoud Raza 05-16-2025 8:29 PM
[2025-05-16] MEDS: cefTRIAXone SODIUM 2,000 MG/50 ML BAG IV STA (20:43)
[2025-05-16] MEDS: DOXYCYCLINE HYCLATE 100 MG CAP PO STA (20:43)
[2025-05-16 22:22] LABS: Appearance Urine Clear (Clear); Glucose Urine UA Negative (Negative)
--- NOTE | 2025-05-16 23:41 | History & Physical Report ---
Date of Service May 16, 2025 Assessment & Plan (1) Left lower lobe pneumonia: (2) Cellulitis of right leg: (3) Hypotension: (4) Generalized weakness: Plan Patient is an 85-year-old male with past medical history of dementia, CAD, EILEEN, prostate cancer s/p prostatectomy, COPD, CHF. Patient presented due to several days of weakness, and right knee redness. CXR showed concern for left lower lobe pneumonia and he also has right lower extremity cellulitis; he is being admitted for IV antibiotics. #left lower lobe pneumonia nonseptic at time of admission; with leukocytosis WBC 11.63, otherwise VSS and afebrile. CXR showed concern for left lower lobe pneumonia. Nonhypoxic at time of admission. Procalcitonin 0.07. Rocephin and doxycycline IV Sputum and blood cultures ordered incentive spirometry DuoNebs as needed - oxygen prn for O2 <92%, wean as tolerated - monitor on tele #Right lower extremity cellulitis - XR showed moderate infrapatellar soft tissue swelling. Does have history of right knee arthroplasty. given normal range of motion at time of admission, low concern for septic joint as redness also progresses down right lower extremity. Coverage with Rocephin as above #Hypotension Asymptomatic. BPs close 87/57 in ED, improved to 105/78 at time of admission; stated BP is low at baseline. Likely 2/2 poor p.o. intake and acute infection above. Albumin 4.1. Hold Lasix, Imdur, metoprolol, Entresto Total of 2L NSS bolus followed by LR 80 mL/hour #dementia without behavioral disturbance disoriented at baseline however pleasant at time of admission. One-to-one as needed as patient tried to get out of bed Fall and aspiration precautions ED medications ordered on admission; continue Aricept, Namenda, sertraline Melatonin as needed Frequent orientation and promote good sleep-wake cycles #generalized weakness - likely 2/2 acute infection above. Electrolytes stable. - tick panel ordered - PT/OT consulted #EILEEN - CPAP HS #Diastolic CHF - most recent echo 04/2023 showed EF 50-55%, grade 1 diastolic dysfunction. Clincally volume depleted on admission. - heart healthy, low sodium diet - holding Lasix - daily weights and strict I's and O's #CAD/HTN - s/p 3 vessel CABG 2013 [address] pacer. Follows with Dr. Blackwell. - holding antihypertensives as above - continue asa, statin/Zetia VTE ppx: SCDs, low risk Dispo: med/tele Admission and Anticipated Discharge Date Admission Date: 05/16/25 History of Present Illness Chief Complaint: knee pain Primary Care Provider: [facility] Patient is an 85-year-old male with past medical history of dementia, CAD, EILEEN, prostate cancer s/p prostatectomy, COPD, CHF. Patient presented due to several days of weakness, and right knee redness. CXR showed concern for left lower lobe pneumonia and he also has right lower extremity cellulitis; he is being admitted for IV antibiotics. Patient seen at bedside with his present. He stated he is feeling fine at bedside, history of dementia and unable to state why he came in. Following history was obtained by patient's . She stated he slept in more than normal today felt weak however still wanted to go to hunting camp with a friend. While he was there she was called to pick him up because he was weak, nauseous, and had shivers. At home she stated he was more lethargic than normal and she noticed his right knee was red and hot. He was also complaining of right knee pain. She stated he always has a cough however over the past few days it has been more intense than normal. He is also been complaining of shortness of breath. She does endorse clear thick sputum production. They deny any sick contacts. She is concerned about him being here overnight as he keeps trying to get out of bed, one-to-one as needed ordered. She stated he also always has urinary incontinence at baseline. He is due for his evening medications, ordered. His blood pressures have also been noted to be low in the ED as low as 87/57 however currently improved to 105/70 after 1 L NSS bolus in the ED. She stated his blood pressures are on the lower side however never this low. He did take all of his morning medications. She stated he does have difficulty swallowing large medications, he takes imdur as 2 separate 60mg tablets as he is unable to tolerate 120mg tab. She wishes for him to be a DNR/DNI status. Allergies Allergy/AdvReac Type Severity Reaction Status Date / Time Sulfa (Sulfonamide Allergy Mild rash Verified 05/16/25 19:50 Antibiotics) lisinopril AdvReac Intermediate cough Verified 05/16/25 19:50 metoclopramide AdvReac Intermediate Depression Verified 05/16/25 19:50 oxycodone [From OxyContin] AdvReac Intermediate Hallucinati Verified 05/16/25 19:50 ons ciprofloxacin [From Cipro] AdvReac Unknown see notes Verified 05/16/25 19:50 Home Medications Medication Instructions Recorded Confirmed Type multivitamin (Daily Multi-Vitamin 1 tab PO DAILY 09/07/20 05/16/25 History tablet) donepezil 10 mg tablet 10 mg PO HS 12/03/24 05/16/25 History memantine 10 mg tablet 10 mg PO BID 12/03/24 05/16/25 History sertraline 100 mg tablet (Zoloft) 100 mg PO QAM #90 tabs 03/09/25 05/16/25 Rx esomeprazole magnesium 40 mg 40 mg PO QPM #90 caps 03/18/25 05/16/25 Rx capsule,delayed release (Nexium) ezetimibe 10 mg-simvastatin 40 mg 1 tab PO HS #90 tabs 03/18/25 05/16/25 Rx tablet (Vytorin) furosemide 40 mg tablet 40 mg PO QAM #90 tabs 03/18/25 05/16/25 Rx metoprolol succinate 50 mg 50 mg PO DAILY #90 tabs 03/18/25 05/16/25 Rx tablet,extended release 24 hr nitroglycerin 0.4 mg sublingual 0.4 mg sublingual DIRECTED PRN 03/18/25 05/16/25 Rx tablet Chest Pain #25 tabs cholecalciferol (vitamin D3) 25 4,000 unit PO DAILY 04/07/25 05/16/25 History mcg (1,000 unit) capsule diaper,brief,adult,disposable #300 ea 04/07/25 04/07/25 Rx isosorbide mononitrate 60 mg 120 mg PO QAM 04/07/25 05/16/25 History tablet,extended release 24 hr reusable chux #10 ea 04/07/25 04/07/25 Rx aspirin 81 mg tablet,delayed 81 mg PO QAM 05/16/25 05/16/25 History release sacubitril 24 mg-valsartan 26 mg 0.5 tab PO QAM 05/16/25 05/16/25 History tablet (Entresto) Past Med/Surg History Problem List (Updated 05/17/25 @ 00:10 by Leann Mcmanus PA-C) Hypotension Left lower lobe pneumonia Cellulitis of right leg (Acute) Pneumonia (Acute) Chest pain (Acute) Generalized weakness (Acute) Urinary incontinence Fracture of toe of left foot Open wound of great toe Gastroenteritis due to norovirus (~08/28/24) Skin tear of right upper extremity Hyperlipidemia Bradycardia Near syncope Prostate cancer "DIAGNOSIS: Prostate, adenocarcinoma, codi 3 + 3, PSA 7.3, cT1c, group I Prostate Volume by U/S - 26.0 cc PSA Density - 0.280" Right knee DJD Incontinence URINARY Obstructive jaundice CAD (coronary artery disease) H/O atrial flutter Bladder fistula EILEEN on CPAP Essential hypertension COPD (chronic obstructive pulmonary disease) Non-ST elevation (NSTEMI) myocardial infarction GERD (gastroesophageal reflux disease) Dysphagia Depression Mixed conductive and sensorineural hearing loss of right ear with restricted hearing of left ear CHF (congestive heart failure) (Acute) Cardiomyopathy SSS (sick sinus syndrome) Biventricular cardiac pacemaker in situ Atrial fibrillation Frequent unifocal PVCs Iliac aneurysm Dementia Bladder stone Bladder neck contracture Pacemaker lead malfunction Hx of cardiac pacemaker (Chronic) 2/2 SSS/high grade AVB; [employer] implanted 2017 Last pacer check: within the last 6 months had pacer check-early 2022 [facility]Dr. 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 Recurrent UTI NSVT (nonsustained ventricular tachycardia) Low testosterone Laryngopharyngeal reflux Impotence, organic Hypertension Frequent PVCs COPD with emphysema Urethral stricture Fistula History of urinary incontinence SMA stenosis A-fib Pulmonary HTN CAD (coronary artery disease) History of prostate cancer Kyphosis GERD (gastroesophageal reflux disease) Sleep apnea Hx of myocardial infarction Rosacea Surgical History History of ERCP Hx laparoscopic cholecystectomy S/P CABG x 3 S/P biventricular cardiac pacemaker procedure History of coronary artery bypass graft H/O three vessel coronary artery bypass S/P placement of cardiac pacemaker S/P CABG (coronary artery bypass graft) H/O cystoscopy Hx of bilateral cataract extraction Hx of colonoscopy Hx of tooth extraction History of arthroplasty of right knee History of robot-assisted laparoscopic radical prostatectomy History of cardiac cath Family History Mother Hypertension Breast cancer Father Cardiac disorder Myocardial infarction Denies family history of Clotting disorder Social History Smoking Status: Never smoker Tobacco Type: Cigarettes Age Started Using Tobacco: 21; Age Quit Using Tobacco: 48; packs per day: 1; Second Hand Exposure: No; Do You Dip or Chew Tobacco: No; Tobacco Cessation Education Requested by Patient: No Hx Alcohol Use: Yes Alcohol type: beer Hx Substance Use: No Preferred Language: Belarusian Communication Ability: Effective Visual Impairment: Limited Food Cashier Required: No Beliefs That Will Affect Care: None marital status: Current Living Situation: Spouse current occupational status: retired 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 Non-toxic appearing. HEENT- EOMI, mucous membranes moist. Hearing grossly intact. Heart-normal S1 and S2. No murmurs, rubs or gallops. Lungs-crackles to LLL, no respiratory distress, no accessory muscle use. Abdomen-normal bowel sounds and soft. No ascites noted. Non-tender. Extremities- no clubbing, cyanosis. Right knee with erythema and warmth to medical aspect; see image below. Rheumatologic-normal range of motion. Psychiatric-normal affect. Results & Data Results & Data Vital Signs (Past 12 Hours) Vital Signs Temp Pulse Pulse Pulse Resp BP BP 05/16/25 22:10 85 24 105/78 05/16/25 21:30 74 20 87/57 L 05/16/25 21:01 71 21 93/46 L 05/16/25 20:31 77 21 96/59 L 05/16/25 20:22 73 05/16/25 20:02 72 88/58 L 05/16/25 18:48 71 17 89/56 L 05/16/25 18:20 37.1 C 82 18 96/60 L Pulse Ox O2 Del Method 05/16/25 22:10 96 Room Air 05/16/25 21:30 05/16/25 21:01 98 Room Air 05/16/25 20:31 05/16/25 20:22 05/16/25 20:02 94 Room Air 05/16/25 18:48 95 Room Air 05/16/25 18:20 94 Room Air Laboratory Results reviewed CBC, CMP, trop, procal, tick panel, UA Diagnostic Findings reviewed CXR, knee XR Medications Administered ED - 1 NSS bolus, Rocephin 2G IV, Doxy 100 mg p.o. Admissionadditional 1L NSS bolus followed by LR 80 mL/hour, evening medications ECG Additional Comments: atrial sensed-ventricular paced rhythm with occasional PVCs rate 72 QTC 519 Code Status & VTE Plan Code Status DNR/DNI VTE Prophylaxis Plan VTE Prophylaxis will be ordered: Yes Supervising Physician Co-Signing Physician Notes Attending addendum: I have physically seen this patient, have supervised the DEANDRE's activities, and agree with the H&P unless as otherwise noted. Assessment and Plan: The patient is an 85-year-old male with past medical history including dementia, CAD, EILEEN, prostate cancer status post prostatectomy, COPD, and CHF. Patient presents to the emergency department with several days of weakness, and notes right knee redness and mild discomfort. Workup in the emergency department included a chest x-ray showing left lower lobe pneumonia, and is noted to have a right lower extremity cellulitis. [facility]. Left lower lobe pneumonia- Given ceftriaxone 2 g IV and doxycycline 100 mg p.o. in the ED, along with normal saline bolus 1 L Admitted on ceftriaxone 2 g IV daily, and doxycycline 100 mg IV twice daily Follow sputum culture sensitivity Follow-up blood culture sensitivity Incentive spirometry DuoNebs every 2 hours as needed Supplemental oxygen to maintain pulse ox if drops below 92% Admit to telemetry due to respiratory status. Right lower extremity cellulitis- X-ray showed moderate infrapatellar soft tissue swelling. Right TKA in alignment Ceftriaxone as noted above Hypotension/CAD/hypertension/diastolic CHF- Blood pressure is lowest was 87/57, but did improve to 105/78 after IV fluid rehydration. Holding furosemide, Imdur, metoprolol and Entresto Most recent echo 05/17 with ejection fraction 50-55% Continue aspirin Continue IV fluid resuscitation with LR at 80 mL/h x 2 L Hyperlipidemia- Continue Zetia and simvastatin Dementia without behavioral disturbance one-to-one as needed Fall and aspiration precautions Continue Aricept, Namenda, and sertraline Generalized weakness- Secondary to pneumonia and cellulitis as noted above Order tick panel EILEEN- Continue CPAP at bedtime PG Care Time/CCT Total # of Minutes Spent Total Time Spent with Patient: Total time spent is greater than 50% in coordination of care (as documented) at patient's floor/unit and/or counseling patient: Coding Level of Care Code 27930 INT INP/OBS CARE 375MIN Diagnoses Left lower lobe pneumonia J18.9 Cellulitis of right leg L03.115 Hypotension I95.9 Generalized weakness R53.1
[2025-05-16] MEDS: LACTATED RINGER'S 1,000 ML IV ONE (23:50)
[2025-05-16] MEDS: DONEPEZIL HCL 10 MG TAB PO STA (23:50)
[2025-05-16] MEDS: MEMANTINE HCL 10 MG TAB PO STA (23:50)
[2025-05-17] MEDS: LACTATED RINGER'S 1,000 ML IV SCH (01:18)
[2025-05-17] MEDS ORDERED: DOCUSATE SODIUM 100 MG CAP PO PRN (02:16)
[2025-05-17] MEDS ORDERED: ALBUT/IPRATROP 3MG/0.5MG NEB 3 ML VIAL NEB PRN (02:16)
[2025-05-17 07:45] LABS: Hematocrit (blood only) 35.9 % (42.0-52.0); Hemoglobin 11.0 g/dl (14.0-18.0); Immature Granulocytes # (auto) 0.05 K/uL (0.01-0.20); Immature Granulocytes % (auto) 0.5 %; Mean Corpuscular Hemoglobin 26.1 pg (25.0-34.0); Mean Corpuscular Volume 85.1 fL (80.0-100.0); Platelet Count 90 K/uL (130-400); RDW Standard Deviation 43.7 fL (36.4-46.3); Red Blood Count 4.22 M/uL (4.70-6.10); White Blood Count 10.27 K/ul (4.8-10.8)
[2025-05-17 07:57] LABS: Albumin Level 4.0 gm/dl (3.4-5.0); Anion Gap 10.0 (3-11); Calcium 8.5 mg/dl (8.6-10.3); Carbon Dioxide 24.0 mmol/L (21-32); Chloride 104.0 mmol/L (98-107); Magnesium 1.9 mg/dl (1.7-2.4); Potassium 3.8 mmol/L (3.5-5.1); Sodium 138.0 mmol/L (136-145)
[2025-05-17] MEDS: SERTRALINE HCL 100 MG TABLET PO SCH (07:59)
[2025-05-17] MEDS: DOXYCYCLINE HYCLATE 100 MG in DEXTROSE 5% MINI-B 100 ML IV SCH (07:59)
[2025-05-17] MEDS: MEMANTINE HCL 10 MG TAB PO SCH (07:59)
[2025-05-17 08:03] LABS: Blood Urea Nitrogen 18.0 mg/dl (6-23); Creatinine Clr Calc Pharmacy 67.1 ml/min; Glucose 109.0 mg/dl (70-99(Fasting))
[2025-05-17] MEDS: ASPIRIN 81 MG ECTAB PO SCH (09:00)
--- NOTE | 2025-05-17 09:26 | Hospitalist Progress Note ---
Date of Service May 17, 2025 Assessment & Plan (1) Left lower lobe pneumonia: (2) Cellulitis of right leg: (3) Hypotension: (4) Generalized weakness: Plan Patient is an 85-year-old male with past medical history of dementia, CAD, EILEEN, prostate cancer s/p prostatectomy, COPD, CHF. Patient presented due to several days of weakness, and right knee redness. CXR showed concern for left lower lobe pneumonia and he also has right lower extremity cellulitis; he is being admitted for IV antibiotics. #left lower lobe pneumonia nonseptic at time of admission; with leukocytosis WBC 11.63, otherwise VSS and afebrile. CXR showed concern for left lower lobe pneumonia. Procalcitonin 0.07. Leukocytosis has resolved. Cotninue Rocephin and doxycycline, convert doxy to PO Sputum culture uncollected Blood cultures pending Supportive care: incentive spirometry, DuoNebs as needed -oxygen prn for O2 <92%, currently on room air #Right lower extremity cellulitis - XR showed moderate infrapatellar soft tissue swelling. Does have history of right knee arthroplasty. Redness surrounding right knee with migration to medial aspect of right lower ext. rocephin IV -venous Doppler with no evidence of DVT -tick panel with neg lyme screen, neg babesia, neg anaplasma -cellulitis demarcation traced for monitoring of worsening involvement #Hypotension in the setting of HTN, CHF, CAD Asymptomatic. BPs close 87/57 in ED, improved to 105/78 at time of admission; stated BP is low at baseline. Likely 2/2 poor p.o. intake and acute infection above. Albumin 4.1. 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 Follows with Dr. Blackwell. echo 04/2023 showed EF 50-55%, grade 1 diastolic dysfunction. Continue daily weights -has been normotensive with vital signs Lasix, Entrestro, Imdur and metoprolol held on admission -Resume Entresto and metoprolol today continue asa, statin/Zetia received total of 2.5L IVF #dementia without behavioral disturbance disoriented at baseline however pleasant at time of admission, oriented so self only One-to-one as needed as patient tried to get out of bed Fall and aspiration precautions continue Aricept, Namenda, sertraline Melatonin as needed Frequent orientation and promote good sleep-wake cycles reports baseline mentation 05/17 #generalized weakness-no reports today - tick panel with neg lyme screen, neg babesia, neg anaplasma - PT/OT consulted #EILEEN -CPAP HS VTE ppx: SCDs, low risk Dispo: continued stay for IV antibiotics and PT/OT consult Admission and Anticipated Discharge Date Admission Date: May 16, 2025 Subjective Sitting up at the bedside in chair. Has no major complaints. Asking when his will be arriving. Not oriented to time or hospitalization cause. Denies ch est pain or SOB. Denies light-headedness or dizziness. Reports no weakness compared to admission. Telemetry report: Paced with rate in 70s/80s with PVCs. Review of Systems Review of Systems: All systems reviewed & are unremarkable except as noted in Subjective Physical Exam Physical Exam: GENERAL APPEARANCE: A&O. Sitting up in the chair. NAD. HEART: RRR without m/g/r LUNGS: Normal inspiratory effort. CTA with decreased breath sounds to left lower lobe. ABDOMEN: No guarding or rigidity. Normoactive BS in all four quadrants. Abdomen soft and NT. MSK: No bony gross/deformities throughout. ROM intact. Right knee with noted erythema and warmth to touch proximally and distally. Migration of redness and erythema to right lower leg with tenderness to palpation of right calf area. +1 pitting edema to RLE. +posterior tibialis/dorsalis pedis in right foot. erythema outlined with skin marker PSYCHIATRIC: Normal affect. Eye contact is good. Speech is normal rate and content. Responses are appropriate. Oriented to self only. Results & Data Results & Data Vital Signs (Past 12 Hours) Vital Signs Temp Pulse Pulse Pulse Resp BP BP 05/17/25 08:11 98.2 F 70 18 108/64 05/17/25 02:46 05/17/25 02:46 99.9 F H 80 18 05/17/25 02:34 05/17/25 02:16 99.9 F H 80 18 05/17/25 02:16 05/17/25 02:11 75 05/17/25 01:48 73 19 100/63 05/17/25 01:09 77 21 99/77 L 05/17/25 00:23 74 23 89/56 L 05/16/25 23:54 79 05/16/25 22:10 85 24 05/16/25 21:30 74 20 87/57 L BP Pulse Ox Pulse Ox O2 Del Method O2 Del Method 05/17/25 08:11 95 Room Air 05/17/25 02:46 Room Air 05/17/25 02:46 97/61 L 94 Room Air 05/17/25 02:34 Room Air 05/17/25 02:16 97/61 L 94 Room Air 05/17/25 02:16 94 Room Air 05/17/25 02:11 05/17/25 01:48 95 Room Air 05/17/25 01:09 94 Room Air 05/17/25 00:23 97 Room Air 05/16/25 23:54 05/16/25 22:10 105/78 96 Room Air 05/16/25 21:30 Laboratory Results cbc and chemistry reviewed Diagnostic Findings LE doppler reviewed PG Care Time/CCT Total # of Minutes Spent Total Time Spent with Patient: Total time spent is greater than 50% in coordination of care (as documented) at patient's floor/unit and/or counseling patient: Coding Level of Care Code 54076 SUB INP/OBS CARE 3/50MIN Diagnoses Left lower lobe pneumonia J18.9 Cellulitis of right leg L03.115 Hypotension I95.9 Generalized weakness R53.1
--- NOTE | 2025-05-17 11:16 | Ultrasound Report ---
US venous doppler LE RT HISTORY: 85 years-old Male unilateral erythema and swelling acute pain and swelling of the right low er leg COMPARISON: Knee radiographs 05/16/2025 TECHNIQUE: Multiple real-time sonographic images of the right lower extremity deep venous structures were obtained assessing grayscale appearance, color and spectral flow. FINDINGS: Normal flow, compressibility, phasicity and augmentation. IMPRESSION: No sonographic evidence of deep venous thrombosis. ACT 112: Negative or not required by law. The above report was generated using voice recognition software. It may contain grammatical, syntax o r spelling errors. Electronically signed by: Nikita Willard M.D. 05/17/2025 11:15 AM
--- NOTE | 2025-05-17 12:16 | Electrocardiogram Report ---
Test Reason : Blood Pressure : */* mmHG Vent. Rate : 72 BPM Atrial Rate : 72 BPM P-R Int : 134 ms QRS Dur : 142 ms QT Int : 474 ms P-R-T Axes : 63 -38 66 degrees QTcB Int : 519 ms Atrial-sensed ventricular-paced rhythm with occasional Premature ventricular complexes Biventricular pacemaker detected Abnormal ECG When compared with ECG of 07-Apr-2023 11:52, Premature ventricular complexes are now Present Vent. rate has increased by 9 bpm Confirmed by Cortes Casanova ([id number]) on 05/17/2025 12:15:52 PM Referred By: REFERRED SELF Confirmed By: Cortes Casanova
[2025-05-17] MEDS: VALSARTAN/SACUBITRIL 26/24MG TAB PO SCH (15:26)
[2025-05-17] MEDS: METOPROLOL SUCC 25MG EXT REL TAB PO STA (15:26)
[2025-05-17] MEDS: cefTRIAXone SODIUM 2,000 MG/50 ML BAG IV SCH (17:48)
[2025-05-17] MEDS: MELATONIN 3 MG TAB PO PRN (20:26)
[2025-05-17] MEDS: DOXYCYCLINE HYCLATE 100 MG CAP PO SCH (20:26)
[2025-05-17] MEDS: EZETIMIBE 10 MG TAB PO SCH (20:26)
[2025-05-17] MEDS: DONEPEZIL HCL 10 MG TAB PO SCH (20:27)
[2025-05-17] MEDS: ACETAMINOPHEN 325 MG TAB PO PRN (20:27)
[2025-05-17] MEDS: SIMVASTATIN 40 MG TAB PO SCH (20:27)
[2025-05-17] MEDS ORDERED: EZETIMIBE/SIMVASTATIN 10/40MG TAB PO SCH (21:00)
[2025-05-17] MEDS: MELATONIN 3 MG TAB PO ONE (22:27)
[2025-05-18] MEDS ORDERED: PHA DELIRIUM CONSULT PRN (01:42)
[2025-05-18 06:56] LABS: Hematocrit (blood only) 32.7 % (42.0-52.0); Hemoglobin 10.0 g/dl (14.0-18.0); Mean Corpuscular Hemoglobin 26.0 pg (25.0-34.0); Mean Corpuscular Volume 84.9 fL (80.0-100.0); Platelet Count 94 K/uL (130-400); RDW Standard Deviation 44.4 fL (36.4-46.3); Red Blood Count 3.85 M/uL (4.70-6.10); White Blood Count 9.68 K/ul (4.8-10.8)
[2025-05-18 07:20] LABS: Anion Gap 6.0 (3-11); Blood Urea Nitrogen 14.0 mg/dl (6-23); Calcium 8.5 mg/dl (8.6-10.3); Carbon Dioxide 28.0 mmol/L (21-32); Chloride 103.0 mmol/L (98-107); Creatinine Clr Calc Pharmacy 70.7 ml/min; Glucose 124.0 mg/dl (70-99(Fasting)); Potassium 3.2 mmol/L (3.5-5.1); Sodium 137.0 mmol/L (136-145)
[2025-05-18 07:58] VITALS: RESP 16
[2025-05-18] MEDS: METOPROLOL SUCC 50MG EXT REL TAB PO SCH (08:18)
[2025-05-18] MEDS: POTASSIUM CHLORIDE CRTAB 20 MEQ TABCR PO STA (08:48)
--- NOTE | 2025-05-18 09:59 | Discharge Summary ---
Discharge Summary Date of Service May 18, 2025 Principal Dx & Hospital Course #1 = Principal Diagnosis (1) Left lower lobe pneumonia: (2) Cellulitis of right leg: (3) Hypotension: (4) Generalized weakness: Plan #left lower lobe pneumonia Patient is an 85-year-old male with past medical history of dementia, CAD, EILEEN, prostate cancer s/p prostatectomy, COPD, CHF. Patient presented due to several days of weakness, and right knee redness. CXR showed concern for left lower lobe pneumonia and he also has right lower extremity cellulitis. Nonseptic at time of admission; with leukocytosis WBC 11.63, otherwise VSS and afebrile. CXR showed concern for left lower lobe pneumonia. Procalcitonin 0.07. Recieved IV Ceftriaxone, IV Doxy with transition to oral Doxy, d/c antibiotics: Doxycycline and Augmentin. Leukocytosis has resolved. Oxygenating appropriately on room air during hospital course. Continue incentive spirometry for discharge. PT/OT eval rec HH, rx for walker given. -prelim BCs without growth at 24h , final pending #Right lower extremity cellulitis - XR showed moderate infrapatellar soft tissue swelling. Does have history of right knee arthroplasty. Redness surrounding right knee with migration to medial aspect of right lower ext. venous Doppler with no evidence of DVT. Tick panel with neg lyme screen, neg babesia, neg anaplasma. Ceftriaxone IV for hospital course, d/c on Doxycycline. erythema markedly improved to right knee, RLE with no migration or erythema beyond skin marking #Hypotension in the setting of HTN, CHF, CAD Asymptomatic. BPs close 87/57 in ED, improved to 105/78 at time of admission; stated BP is low at baseline. Likely 2/2 poor p.o. intake and acute infection above. 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 Follows with Dr. Blackwell. Echo 04/2023 showed EF 50-55%, grade 1 diastolic dysfunction. received total of 2.5L IVF and BS improved. Continue asa, statin/Zetia. d/c on home antihypertensive regimen (metoprolol, Imdur), d/c on Entresto, metoprolol, Lasix for CHF #dementia without behavioral disturbance disoriented at baseline however pleasant at time of admission, oriented so self only. Episode of disorientation overnight. Baseline this am with orientation to self-pleasant and cooperative demeanor. continue Aricept, Namenda, sertraline. - reports baseline mentatio n 05/17 -d/c with home health and private payor home health aid list for to secure assistance at home with ADLs #generalized weakness-stable to return home with home health #EILEEN-CPAP HS Dispo: home under care of and home health Notes For Next Care Provider Medication Changes From Visit course of augmentin and doxy Admission HPI Per Admitting Provider Patient is an 85-year-old male with past medical history of dementia, CAD, EILEEN, prostate cancer s/p prostatectomy, COPD, CHF. Patient presented due to several days of weakness, and right knee redness. CXR showed concern for left lower lobe pneumonia and he also has right lower extremity cellulitis; he is being admitted for IV antibiotics. Patient seen at bedside with his present. He stated he is feeling fine at bedside, history of dementia and unable to state why he came in. Following history was obtained by patient's . She stated he slept in more than normal today felt weak however still wanted to go to [place] with a friend. While he was there she was called to pick him up because he was weak, nauseous, and had shivers. At home she stated he was more lethargic than normal and she noticed his right knee was red and hot. He was also complaining of right knee pain. She stated he always has a cough however over the past few days it has been more intense than normal. He is also been complaining of shortness of breath. She does endorse clear thick sputum production. They deny any sick contacts. She is concerned about him being here overnight as he keeps trying to get out of bed, one-to-one as needed ordered. She stated he also always has urinary incontinence at baseline. He is due for his evening medications, ordered. His blood pressures have also been noted to be low in the ED as low as 87/57 however currently improved to 105/70 after 1 L NSS bolus in the ED. She stated his blood pressures are on the lower side however never this low. He did take all of his morning medications. She stated he does have difficulty swallowing large medications, he takes imdur as 2 separate 60mg tablets as he is unable to tolerate 120mg tab. She wishes for him to be a DNR/DNI status. Discharge Exam GENERAL APPEARANCE: A&O. Sitting up in bed. NAD. HEART: RRR without m/g/r LUNGS: Normal inspiratory effort. CTA with fine crackles to left lower base. ABDOMEN: No guarding or rigidity. Normoactive BS in all four quadrants. Abdomen soft and NT. MSK: No bony gross/deformities throughout. ROM intact. Right knee with no erythema or warmth to patella. Right lower leg without erythema or warmth to extremity. No edema to BL lower ext. Bilateral pedal pulses +3. PSYCHIATRIC: Normal affect. Eye contact is good. Speech is normal rate and content. Responses are appropriate. Oriented to self only. Discharge Plan Discharge Items Patient Disposition: Home - Home Health Services Reason For Visit: PNA, CELLULITIS, HYPOTENSION Discharge Diagnosis: Left lower lobe pneumonia, cellulitis of right leg, low blood pressure, generalized weakness Condition on Discharge: Good Activity: Resume your previous activity Non-emergency contact: Primary Care Provider Call non-emergency contact if: you have any medication questions, your symptoms worsen, your pain is concerning for you, you have a fever, your wound has increased redness, your wound has increased drainage and your wound pain has increased Follow-up/Referrals: Jefferson Yee CRNP [Primary Care Provider] - 05/26/25 10:20 am () Diet: Heart Healthy and Low Sodium (2gm) Addtl Attending Provider Instructions: Mr. Sesay, You were admitted to the hospital for two infections. You were diagnosed with a lung infection called pneumonia and an infection of your leg called cellulitis. You were given two different antibiotics while you were in the hospital. We have arranged for a home health nurse to come into your home to assist you. We also have supplied you with a walker to use when walking around your home and for additional assistance as you recover so you do not fall. Medications: Your medication list has been reviewed and reconciled upon discharge to ensure accuracy and continuity of care. An updated list of all your medications is included with your hospital discharge paperwork. Please review this list closely, and make note of any changes. You will be provided with two oral antibiotics upon discharge. The first antibiotic is called Augmentin, you will take this antibiotic twice a day for the next 5 days. The second antibiotic is called Doxycycline, you will also take this antibiotic twice a day for the next 5 days. Please make sure you take the full course of both antibiotics at home even if you are feeling better. Make sure you take both of these medications with food. Take your medications as instructed; do not skip a dose of your medicines. Make sure all of your doctors know every medicine you are taking (including sxvz-vas-mrkquwe medicines, vitamins, and supplements). Call your primary care provider before taking any new medicines (including over- the-counter medicines, vitamins, and supplements), because some of these may interact with your current medications, or may make your symptoms worse. Tell your primary care provider if you cannot afford your medications. Activity: You can do normal everyday activities as your body allows. Take rest breaks if you feel tired. Do not overexert. Stop activity if you have pain, shortness of breath or feel dizzy. Follow-up appointments: Make an appointment with your primary care physician within one week of discharge. A copy of this summary will be sent to them. Every time you see your primary care physician, or any other doctor, bring your medication list, and a list of questions. CONTACT YOUR PRIMARY CARE PROVIDER if you experience any of the following: Shortness of breath or difficulty breathing Fevers or chills Feeling tired with normal activity or experiencing dizziness or fainting Difficulty following your treatment plan, or difficulty taking medications CALL 911 OR GO TO THE EMERGENCY DEPARTMENT if you experience any of the following: Severe abdominal pain or nausea/vomiting Severe chest pain, or chest pain that radiates (moves) to your jaw or arm Sudden, severe shortness of breath or difficulty breathing Thank you for allowing us to participate in your care. Pending Studies at Discharge: Yes Studies:: final blood culture report pending Stand-Alone Forms: My [facility], Smoking Cessation Medications and DC Order Prescriptions: New doxycycline hyclate 100 mg Capsule 100 mg PO BID Qty: 10 0RF amoxicillin-pot clavulanate 875-125 mg tablet 1 tab PO BID Qty: 10 0RF Continued sertraline [Zoloft] 100 mg tablet 100 mg PO QAM Qty: 90 3RF multivitamin [Daily Multi-Vitamin] Tablet 1 tab PO DAILY cholecalciferol (vitamin D3) 25 mcg (1,000 unit) capsule 4,000 unit PO DAILY esomeprazole magnesium [Nexium] 40 mg capsule,delayed release(DR/EC) 40 mg PO QPM Qty: 90 3RF ezetimibe-simvastatin [Vytorin 10-40] 10-40 mg tablet 1 tab PO HS Qty: 90 3RF furosemide 40 mg tablet 40 mg PO QAM Qty: 90 3RF metoprolol succinate 50 mg tablet extended release 24 hr 50 mg PO DAILY Qty: 90 3RF nitroglycerin 0.4 mg tablet, sublingual 0.4 mg SL DIRECTED PRN (Reason: Chest Pain) Qty: 25 2RF Rx Instructions: PLACE ONE TABLET UNDER THE TONGUE EVERY 5 MINUTES FOR UP TO 3 DOSES OVER 15 MINUTES IF NEEDED FOR CHEST PAIN isosorbide mononitrate 60 mg tablet extended release 24 hr 120 mg PO QAM (DME) diaper,brief,adult,disposable Misc See Rx Instructions .Route Qty: 300 5RF Rx Instructions: Use up to 10 diapers per day (DME) reusable chux See Rx Instructions .Route .MEDSUPPLY Qty: 10 0RF Rx Instructions: As directed memantine 10 mg tablet 10 mg PO BID donepezil 10 mg tablet 10 mg PO HS aspirin 81 mg Tablet,Delayed Release (Dr/Ec) 81 mg PO QAM sacubitril-valsartan [Entresto] 24-26 mg tablet 0.5 tab PO QAM Discharge Orders: Discharge Order (Routine); Ordered 05/18/25 Ordered By: Blaire Mayes/Other Patient Handouts: Treating Pneumonia, Cellulitis Dc Admission Data Admit Date/Time: 05/16/25 23:39 Attending Provider: Alina Camp Admit Provider: You Smith Primary Care Provider: Jefferson Yee Other Providers: You Smith; IRB Approved Study,E[facility] Other Interventions: Discharge Summary Assessment (RN) Last Done: 05/18/25 10:44 Hospital Stay Data Consultations 05/16/25 22:15 ED Decision to Admit Stat Diagnostic Imagining Performed Chest X-Ray 05/16/25 18:58 EXAM: Portable AP chest radiograph TECHNIQUE: AP portable radiograph of the chest was obtained. INDICATION: Shortness of breath Comparison: Chest radiograph April 07, 2023 FINDINGS: LINES and TUBES: Left-sided cardiac ICD with leads projecting over the right atrium, the coronary sinus and the right ventricle the heart. CARDIOVASCULAR: Cardiac silhouette is stably enlarged in size with redemonstrated postoperative changes of the heart. Atherosclerosis of the thoracic aorta. LUNGS/PLEURA: Patchy left mid to lower lung pulmonary densities are suggested. Small pleural fluid may be present no discernible pneumothorax. OSSEOUS/OTHER: No displaced acute osseous process identified. Median sternotomy wires. IMPRESSION: Patchy left mid to lower lung pulmonary densities are suggested and may represent mild pneumonia. Congestive changes of the cardiovascular system as above. Electronically signed by Masoud Raza 05-16-2025 8:27 PM Knee X-Ray 05/16/25 19:35 INDICATION: Pain TECHNIQUE: 2 views of the right knee were obtained. COMPARISON: Right knee radiographs September 21, 2017 FINDINGS: No displaced acute osseous process is identified. Redemonstrated arthroplasty changes with components in anatomic alignment. Small suprapatellar joint fluid. Moderate infrapatellar soft tissue swelling is seen. Extensive vascular calcifications. IMPRESSION: No displaced acute osseous process is identified. Moderate infrapatellar soft tissue swelling is seen. Electronically signed by Masoud Raza 05-16-2025 8:29 PM Venous Doppler Study 05/17/25 09:26 US venous doppler LE RT HISTORY: 85 years-old Male unilateral erythema and swelling acute pain and swelling of the right lower leg COMPARISON: Knee radiographs 05/16/2025 TECHNIQUE: Multiple real-time sonographic images of the right lower extremity deep venous structures were obtained assessing grayscale appearance, color and spectral flow. FINDINGS: Normal flow, compressibility, phasicity and augmentation. IMPRESSION: No sonographic evidence of deep venous thrombosis. ACT 112: Negative or not required by law. The above report was generated using voice recognition software. It may contain grammatical, syntax or spelling errors. Electronically signed by: Nikita Willard M.D. 05/17/2025 11:15 AM Pending Results Patient Have Any Pending Studies at Discharge: Yes Discharge Instructions Given to Patient (Per Discharging Provider) Mr. Sesay, You were admitted to the hospital for two infections. You were diagnosed with a lung infection called pneumonia and an infection of your leg called cellulitis. You were given two different antibiotics while you were in the hospital. We have arranged for a home health nurse to come into your home to assist you. We also have supplied you with a walker to use when walking around your home and for additional assistance as you recover so you do not fall. Medications: Your medication list has been reviewed and reconciled upon discharge to ensure accuracy and continuity of care. An updated list of all your medications is included with your hospital discharge paperwork. Please review this list closely, and make note of any changes. You will be provided with two oral antibiotics upon discharge. The first antibiotic is called Augmentin, you will take this antibiotic twice a day for the next 5 days. The second antibiotic is called Doxycycline, you will also take this antibiotic twice a day for the next 5 days. Please make sure you take the full course of both antibiotics at home even if you are feeling better. Make sure you take both of these medications with food. Take your medications as instructed; do not skip a dose of your medicines. Make sure all of your doctors know every medicine you are taking (including mwnm-jwg-csqjvvh medicines, vitamins, and supplements). Call your primary care provider before taking any new medicines (including over- the-counter medicines, vitamins, and supplements), because some of these may interact with your current medications, or may make your symptoms worse. Tell your primary care provider if you cannot afford your medications. Activity: You can do normal everyday activities as your body allows. Take rest breaks if you feel tired. Do not overexert. Stop activity if you have pain, shortness of breath or feel dizzy. Follow-up appointments: Make an appointment with your primary care physician within one week of discharge. A copy of this summary will be sent to them. Every time you see your primary care physician, or any other doctor, bring your medication list, and a list of questions. CONTACT YOUR PRIMARY CARE PROVIDER if you experience any of the following: Shortness of breath or difficulty breathing Fevers or chills Feeling tired with normal activity or experiencing dizziness or fainting Difficulty following your treatment plan, or difficulty taking medications CALL 911 OR GO TO THE EMERGENCY DEPARTMENT if you experience any of the following: Severe abdominal pain or nausea/vomiting Severe chest pain, or chest pain that radiates (moves) to your jaw or arm Sudden, severe shortness of breath or difficulty breathing Thank you for allowing us to participate in your care. Total Time Total Time Spent Total Time Spent (In Minutes): Time spent day of discharge 35 minutes including direct patient care, medication reconciliation, documentation, review of labs and images, and coordination of care. Coding Level of Care Code 22396 INP/OBS DISCH >30 MIN Diagnoses Left lower lobe pneumonia J18.9 Cellulitis of right leg L03.115 Hypotension I95.9 Generalized weakness R53.1
[2025-05-18 11:03] VITALS: BP 118/70; PULSE 69; TEMP 99.1; O2SAT 93
== END 2025-05-18 15:14 | disposition home health service (06) | DRG 194 ==
LOC: ED 18:17 → 2N 23:39 → SUATTDRO 23:39 → 2N 05-17 01:48 → 2W 05-17 20:57
DX: G47.33 Obstructive sleep apnea (adult) (pediatric); J44.9 Chronic obstructive pulmonary disease, unspecified; D69.6 Thrombocytopenia, unspecified; Z95.0 Presence of cardiac pacemaker; L03.115 Cellulitis of right lower limb; Z85.46 Personal history of malignant neoplasm of prostate; Z88.2 Allergy status to sulfonamides; Z90.49 Acquired absence of other specified parts of digestive tract; I11.0 Hypertensive heart disease with heart failure; I49.5 Sick sinus syndrome; Z95.1 Presence of aortocoronary bypass graft; Z88.8 Allergy status to other drugs, medicaments and biological substances; Z90.79 Acquired absence of other genital organ(s); Z79.899 Other long term (current) drug therapy; Z66 Do not resuscitate; J44.0 Chronic obstructive pulmonary disease with (acute) lower respiratory infection; Z88.1 Allergy status to other antibiotic agents; J18.9 Pneumonia, unspecified organism; I25.10 Atherosclerotic heart disease of native coronary artery without angina pectoris; I50.32 Chronic diastolic (congestive) heart failure; E78.5 Hyperlipidemia, unspecified; Z88.5 Allergy status to narcotic agent; F03.90 Unspecified dementia, unspecified severity, without behavioral disturbance, psychotic disturbance, mood disturbance, and anxiety; I95.9 Hypotension, unspecified; Z87.891 Personal history of nicotine dependence

== ENCOUNTER 2025-05-26 18:17 | Inpatient (IN) ==
[2025-05-26 19:11] LABS: Hematocrit (blood only) 33.4 % (42.0-52.0); Hemoglobin 10.5 g/dl (14.0-18.0); Immature Granulocytes # (auto) 0.13 K/uL (0.01-0.20); Immature Granulocytes % (auto) 1.5 %; Mean Corpuscular Hemoglobin 25.8 pg (25.0-34.0); Mean Corpuscular Volume 82.1 fL (80.0-100.0); Platelet Count 207 K/uL (130-400); RDW Standard Deviation 41.0 fL (36.4-46.3); Red Blood Count 4.07 M/uL (4.70-6.10); White Blood Count 8.62 K/ul (4.8-10.8)
--- NOTE | 2025-05-26 19:20 | XRay Report ---
EXAM: X-ray chest one-view portable CLINICAL HISTORY: Sepsis PRIORS: 05/16/2025, 04/07/2023 TECHNIQUE: Upright portable AP FINDINGS: Patient is significantly rotated. A left-sided cardiac device noted with multiple leads present and median sternotomy wires, unchanged. No confluent airspace consolidation airspace consolidation. No pleural effusion. Heart size is unchanged. No pneumothorax. Trachea is patent. Osseous structures demonstrate no acute abnormality. No radiopaque foreign body. IMPRESSION: No plain film evidence of an acute cardiopulmonary process with unchanged appearance of the chest. Electronically signed by Jyoti Huston 05-26-2025 7:20 PM
[2025-05-26 19:29] LABS: Alanine Aminotransferase 11 U/L (7-52); Albumin Level 4.0 gm/dl (3.4-5.0); Alkaline Phosphatase 64 U/L (34-104); Anion Gap 9 (3-11); Bilirubin,Total 0.4 mg/dl (0.2-1.0); Blood Urea Nitrogen 21 mg/dl (6-23); Calcium 9.4 mg/dl (8.6-10.3); Carbon Dioxide 27 mmol/L (21-32); Chloride 101 mmol/L (98-107); Creatinine Clr Calc Pharmacy 59.7 ml/min; Glucose 102 mg/dl (70-99(Fasting)); Magnesium 1.7 mg/dl (1.7-2.4); Potassium 3.7 mmol/L (3.5-5.1); Sodium 137 mmol/L (136-145); Total Protein 7.8 gm/dl (6.0-8.3)
[2025-05-26] MEDS: CEFEPIME 2000MG 2,000 MG/20 ML SYR IV STA (19:32)
[2025-05-26] MEDS ORDERED: VANCOMYCIN CONSULT ACTIVE PRN (19:38)
[2025-05-26 19:39] LABS: INR 1.1 (0.9-1.1); Partial Thromboplastin Time 28 Seconds (21-31); Prothrombin Time 11.7 Seconds (9.0-12.0)
--- NOTE | 2025-05-26 19:46 | Emergency Department Note ---
Impression & Plan Cellulitis of right leg, Prepatellar bursitis of right knee, Chronic anemia ED Provider Note NAME: ANGELINE WEN III AGE: 85 SEX: M : 1940 ARRIVES VIA: Walk-In INFORMANT: Patient, ED PROVIDER(S): Shailesh Mckeon DO CHIEF COMPLAINT: knee infection HPI: This is a 85-year-old male with the PMHx of SSS s/p PPM, Afib, dementia, CHF, and GERD presenting to [facility] for further evaluation of ongoing RLE infection. Patient is accompanied by his who provide additional history. His states that this has been an ongoing issue. He was treated for cellulitis and an abscess. Follow up with orthopaedic surgery has resulted in the presentation today. He has this knee replaced 2017. He is scheduled for surgery tomorrow. notes that the cellulitic skin appears improved from prior but not having active drainage from the knee. Orthopaedic surgery is concerned prepatellar bursitis. They deny fever or chills. No cough or congestion. Denies chest pain or palpitations. No shortness of breath. They deny abdominal pain, nausea and vomiting. No urinary complaints. No recent changes in bowel movements. Patient denies recent changes in medications or OTC supplements. Patient offers no other complaints, today. Further history obtained from orthopedic surgery ([facility] - Dr. Emanuel). We spoke on the telephone. Patient was recently admitted to [facility] with a left knee cellulitis as well as left lobar pneumonia. Has been on multiple courses of antibiotics. It is reported that he had ceftriaxone and then was transition to Augmentin and doxycycline for 5 days. He continued to worsen leading to 7 further days of antibiotics. Patient was seen in the clinic today. He does have a history of a total knee replacement in 2017. Orthopedic surgery is concern for septic prepatellar bursitis. They did obtain a culture today and will need sent to the lab. They are recommending cardiac clearance and admission. N.p.o. at midnight. OR tentatively for tomorrow. ADDITIONAL HISTORY OBTAINED: Per HPI Chronic Medical/Social Conditions Affecting Care: Per HPI PAST MEDICAL HISTORY: See Below PAST SURGICAL HISTORY: See Below FAMILY HISTORY: See Below SOCIAL HISTORY: See Below HOME MEDICATIONS: See Below ALLERGIES: See Below VITALS: See Below PHYSICAL EXAMINATION: GENERAL: Sitting up in bed, alert, well appearing, well nourished, no distress, non-toxic EYE EXAM: normal conjunctiva. OROPHARYNX: no exudate, no erythema, lips, buccal mucosa, and tongue normal and mucous membranes are moist NECK: supple, no nuchal rigidity, no adenopathy, non-tender LUNGS: Clear to auscultation. Normal chest wall mechanics HEART: no murmurs, regular rate, regular rhythm ABDOMEN: abdomen soft, non-tender, no masses, no rebound or guarding. BACK: Back is symmetrical on inspection and there is no deformity, no midline tenderness, no CVA tenderness. SKIN: no rashes and no bruising UPPER EXTREMITIES: upper extremities are grossly normal. LOWER EXTREMITIES: No pitting edema. Mild erythema, warmth and swelling of the RLE. Improved erythema from skin markings previously. Area of bright erythema and drainage from the prepatellar area. NEURO EXAM: Normal sensorium, GCS 15, normal speech, no gross weakness of arms, no gross weakness of legs. MEDICAL DECISION MAKING: Differential diagnoses includes but not limited to prepatellar bursitis, cellulitis, necrotizing fasciitis, septic arthritis In summary, this is a 85 year old male who presented with infection of the right knee soft tissue. Differential as above. Nursing notes and pertinent past medical records reviewed. Vital signs reviewed and the patient is borderline hypotensive but otherwise afebrile and HDS. Please note that borderline hypotension is the baseline for this patient. History and presentation revealed multiple rounds of outpatient abx treatment that has failed. Follows with Orthopaedic surgery and they are planning for surgery tomorrow if medically cleared. Physical examination revealed as above, no pain ROM and doubt septic arthritis. As a result of my initial evaluation, we will plan for sepsis alert and broad spectrum abx. Patient is not clinically ill or septic so will hold on broad spectrum abx. Diagnostics interpreted by me include EKG and cardiac monitoring as listed below: -Cardiac Monitoring: An order was placed for continuous cardiac monitoring. The monitor shows a rate of 60-70s with regular rhythm. -ECG: Ventricular paced rhythm at 69 bpm. 2 PVCs present on this rhythm strip. No significant ST segment changes to suggest STEMI. Patient completed laboratory studies and imaging. CXR independently interpreted by me reveals no evidence of focal consolidation to suggest pna. No large pneumothorax or pleural effusion. It appears the patient's pneumonia has resolved. Results independently interpreted by me are no leukocytosis and normal CRP. ESR is elevated. Chronic anemia present. No UTI. Negative RVP. He was started on Cefepime and Vancomycin. Wound culture was supplied by Orthopaedic Surgery on arrival and I ordered this. Ultimately, the decision was made to admit the patient for ongoing knee infection with concerns for prepatellar bursitis with failure of outpatient antibiotics. I discussed the case with the hospitalist service via telephone/Tiger[employer] and they are agreeable to admit the patient to their services. Based on the above, including the patient's age, coexisting illnesses, labs, imaging, and exam findings the decision to treat as an inpatient. I discussed the patient with the hospitalist team who recommended admission to their services. They received the medications, treatments, interventions indicated above and their condition remained stable. I discussed my findings with the patient and their family and they understand and agree with the treatment plan. All patient / family questions were answered to their satisfaction. Consults/Care Managements Discussions: Per MDM ER treatment provided: See above Procedures:none Critical Care: None The chart was completed utilizing [employer] Speech voice recognition software. Grammatical errors, random word insertions, pronoun errors, and incomplete sentences are an occasional consequence of this system due to software limitations, ambient noise, and hardware issues. Any formal questions or concerns about the content, text, or information contained within the body of this dictation should be directly addressed to the physician for clarification. Past Med/Surg History Problem List (Updated 05/30/25 @ 19:22 by Shailesh Mckeon DO) Chronic anemia (Acute) Prepatellar bursitis of right knee (Acute) Valvular heart disease Hypotension Left lower lobe pneumonia Cellulitis of right leg (Acute) Pneumonia (Acute) Chest pain (Acute) Generalized weakness (Acute) Urinary incontinence Fracture of toe of left foot Open wound of great toe Gastroenteritis due to norovirus (~08/28/24) Skin tear of right upper extremity Hyperlipidemia Bradycardia Near syncope Prostate cancer "DIAGNOSIS: Prostate, adenocarcinoma, codi 3 + 3, PSA 7.3, cT1c, group I Prostate Volume by U/S - 26.0 cc PSA Density - 0.280" Right knee DJD Incontinence URINARY Obstructive jaundice CAD (coronary artery disease) H/O atrial flutter Bladder fistula EILEEN on CPAP Essential hypertension COPD (chronic obstructive pulmonary disease) Non-ST elevation (NSTEMI) myocardial infarction GERD (gastroesophageal reflux disease) Dysphagia Depression Mixed conductive and sensorineural hearing loss of right ear with restricted hearing of left ear CHF (congestive heart failure) (Acute) Cardiomyopathy SSS (sick sinus syndrome) Biventricular cardiac pacemaker in situ Atrial fibrillation Frequent unifocal PVCs Iliac aneurysm Dementia Bladder stone Bladder neck contracture Pacemaker lead malfunction Hx of cardiac pacemaker (Chronic) 2/2 SSS/high grade AVB; [employer] implanted 2017 Last pacer check: within the last 6 months had pacer check-early 2022 Follows with [facility]/Dr. 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 History of urinary incontinence SMA stenosis asymptomatic, "incidental finding" per cardiology A-fib Incidentally noted episodic a.fib/a.flutter on PPM check- on ASA/beta alyssa, cardiology holding on anticoagulation in setting of hematuria Pulmonary HTN Noted per remote hx, Normal est RA and PA pressures per most recent 07/2020 echo CAD (coronary artery disease) S/P CABG x3 (2012), remote hx of cardiac stents x2 (7+ years ago) History of prostate cancer Kyphosis GERD (gastroesophageal reflux disease) controlled Sleep apnea CPAP Hx of myocardial infarction During cardiac cath (2012)- subsequent CABG x3 ("due to perforation of artery during cath") Rosacea Surgical History History of ERCP Hx laparoscopic cholecystectomy S/P CABG x 3 2013 S/P biventricular cardiac pacemaker procedure History of coronary artery bypass graft H/O three vessel coronary artery bypass S/P placement of cardiac pacemaker S/P CABG (coronary artery bypass graft) H/O cystoscopy Cystoscopy, laser lithopaxy, urethral dilation (09/14/19): MAC at [facility] Hx of bilateral cataract extraction + Lasik Hx of colonoscopy Hx of tooth extraction History of arthroplasty of right knee History of robot-assisted laparoscopic radical prostatectomy 2016 History of cardiac cath remote hx cardiac stents x2 04/2019: medically managed Family History Mother Hypertension Breast cancer Father Cardiac disorder Myocardial infarction Denies family history of Clotting disorder Social History Smoking Status: Never smoker Tobacco Type: Cigarettes Age Started Using Tobacco: 21; Age Quit Using Tobacco: 48; packs per day: 1; Second Hand Exposure: No; Do You Dip or Chew Tobacco: No; Hx Alcohol Use: Yes Alcohol type: beer Hx Substance Use: No Preferred Language: Paraguayan Communication Ability: Effective Visual Impairment: Limited Orthopedic Shoes Salesperson Required: No Beliefs That Will Affect Care: None marital status: Current Living Situation: Spouse 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 Review Feels Safe at Home: Yes Childhood Exposure to Second-Hand Smoke: Yes caffeine: No during the past year weight has: decreased > 10 lbs Physical Activity Frequency: Daily Physical Activity Frequency Comment: walks dogs daily Seatbelt Use: always Sunscreen Use: Yes Assistive Devices: CPAP and Walker Allergies Allergies Allergy/AdvReac Type Severity Reaction Status Date / Time Sulfa (Sulfonamide Allergy Mild rash Verified 05/23/25 11:45 Antibiotics) ceftriaxone Allergy Hives Verified 05/27/25 00:40 lisinopril AdvReac Intermediate cough Verified 05/23/25 11:45 metoclopramide AdvReac Intermediate Depression Verified 05/23/25 11:45 oxycodone [From OxyContin] AdvReac Intermediate Hallucinati Verified 05/23/25 11:45 ons ciprofloxacin [From Cipro] AdvReac Unknown see notes Verified 05/23/25 11:45 Home Meds Home Medications Medication Instructions Recorded Confirmed multivitamin (Daily Multi-Vitamin 1 tab PO DAILY 09/07/20 05/26/25 tablet) donepezil 10 mg tablet 10 mg PO HS 12/03/24 05/26/25 memantine 10 mg tablet 10 mg PO BID 12/03/24 05/26/25 cholecalciferol (vitamin D3) 25 4,000 unit PO DAILY 04/07/25 05/26/25 mcg (1,000 unit) capsule isosorbide mononitrate 60 mg 120 mg PO QAM 04/07/25 05/26/25 tablet,extended release 24 hr aspirin 81 mg tablet,delayed 81 mg PO QAM 05/16/25 05/26/25 release sacubitril 24 mg-valsartan 26 mg 1 - 2 tab PO UD 05/26/25 05/26/25 tablet (Entresto) Previous Rx's Medication Instructions Recorded sertraline 100 mg tablet (Zoloft) 100 mg PO QAM #90 tabs 03/09/25 esomeprazole magnesium 40 mg 40 mg PO QPM #90 caps 03/18/25 capsule,delayed release (Nexium) ezetimibe 10 mg-simvastatin 40 mg 1 tab PO HS #90 tabs 03/18/25 tablet (Vytorin) furosemide 40 mg tablet 40 mg PO QAM #90 tabs 03/18/25 metoprolol succinate 50 mg 50 mg PO DAILY #90 tabs 03/18/25 tablet,extended release 24 hr nitroglycerin 0.4 mg sublingual 0.4 mg sublingual DIRECTED PRN 03/18/25 tablet Chest Pain #25 tabs diaper,brief,adult,disposable #300 ea 04/07/25 reusable chux #10 ea 04/07/25 amoxicillin 875 mg-potassium 1 tab PO BID 7 days #14 tabs 05/23/25 clavulanate 125 mg tablet doxycycline hyclate 100 mg capsule 100 mg PO BID 7 days #14 caps 05/23/25 Results & Data (ED) Vital Signs Vital Signs - 24 hr 05/26/25 18:19 05/26/25 18:34 05/26/25 19:18 Temperature 36.7 C Temperature Source Oral Pulse Rate 66 69 77 Pulse Rate from SpO2 Sensor 71 Pulse Rhythm Regular Respiratory Rate 16 16 15 Respiratory Effort / Characteristics Non-Labored Respiratory Depth Normal Blood Pressure 98/57 L 95/59 L Blood Pressure Mean 70 71 Pulse Oximetry 96 96 95 Oxygen Delivery Method Room Air Room Air Sepsis Recent Fever Within 48 Hours No Sepsis New/Unexplained Change in Mental Status No Sepsis Action Taken by Nursing No Action Required 05/26/25 19:19 05/26/25 19:30 05/26/25 19:51 Temperature Temperature Source Pulse Rate 77 71 69 Pulse Rate from SpO2 Sensor 70 66 Pulse Rhythm Respiratory Rate 16 19 Respiratory Effort / Characteristics Respiratory Depth Blood Pressure 82/56 L 88/53 L Blood Pressure Mean 64 64 Pulse Oximetry 95 95 Oxygen Delivery Method Room Air Sepsis Recent Fever Within 48 Hours Sepsis New/Unexplained Change in Mental Status Sepsis Action Taken by Nursing 05/26/25 20:00 05/26/25 21:00 Temperature Temperature Source Pulse Rate 67 78 Pulse Rate from SpO2 Sensor 77 Pulse Rhythm Respiratory Rate 13 18 Respiratory Effort / Characteristics Respiratory Depth Blood Pressure 102/59 L 112/79 Blood Pressure Mean 73 90 Pulse Oximetry 97 93 Oxygen Delivery Method Room Air Sepsis Recent Fever Within 48 Hours Sepsis New/Unexplained Change in Mental Status Sepsis Action Taken by Nursing Laboratory Data 05/30/25 04:41 05/30/25 04:41 Lab Results 05/26/25 05/26/25 Range/Units 18:55 19:25 WBC 8.62 (4.8-10.8) K/ul RBC 4.07 L (4.70-6.10) M/uL Hgb 10.5 L (14.0-18.0) g/dl Hct 33.4 L (42.0-52.0) % MCV 82.1 (80.0-100.0) fL MCH 25.8 (25.0-34.0) pg MCHC 31.4 L (32.0-36.0) g/dL RDW Std Deviation 41.0 (36.4-46.3) fL RDW Coeff of Ricky 13.8 (11.5-14.5) % Plt Count 207 (130-400) K/uL MPV 10.2 (9.4-12.4) fL Immature Gran % (Auto) 1.5 % Neut % (Auto) 75.3 % Lymph % (Auto) 12.4 % Clinch % (Auto) 7.4 % Eos % (Auto) 2.9 % Baso % (Auto) 0.5 % Neut # (Auto) 6.49 (1.40-6.50) K/uL Lymph # (Auto) 1.07 L (1.20-3.40) K/uL Clinch # (Auto) 0.64 H (0.11-0.59) K/uL Eos # (Auto) 0.25 (0.00-0.50) K/uL Baso # (Auto) 0.04 (0.00-0.20) K/uL Immature Gran # (Auto) 0.13 (0.01-0.20) K/uL ESR 65 H (0-20) mm/hr PT 11.7 (9.0-12.0) Seconds INR 1.1 (0.9-1.1) APTT 28 (21-31) Seconds PTT Ratio 1.0 Sodium 137 (136-145) mmol/L Potassium 3.7 (3.5-5.1) mmol/L Chloride 101 (98-107) mmol/L Carbon Dioxide 27 (21-32) mmol/L Anion Gap 9 (3-11) BUN 21 (6-23) mg/dl Creatinine 1.12 (0.6-1.4) mg/dl Est Cr Clr Drug Dosing 59.7 ml/min eGFR 65.18 BUN/Creatinine Ratio 18.8 (10-20) Glucose 102 H (70-99(Fasting)) mg/dl Lactate 1.6 (0.4-2.0) mmol/L Calcium 9.4 (8.6-10.3) mg/dl Magnesium 1.7 (1.7-2.4) mg/dl Total Bilirubin 0.4 (0.2-1.0) mg/dl Direct Bilirubin 0.1 (0-0.2) mg/dl AST 14 (13-39) U/L ALT 11 (7-52) U/L Alkaline Phosphatase 64 (34-104) U/L Troponin I High Sens 7.7 (0-20) pg/ml C-Reactive Protein < 0.50 (0-0.5) mg/dl Total Protein 7.8 (6.0-8.3) gm/dl Albumin 4.0 (3.4-5.0) gm/dl Procalcitonin 0.03 (0-0.5) ng/ml Nasal Screen MRSA (PCR) Positive A (Negative) Adenovirus (PCR) Not Detected (NotDetected) B. pertussis DNA (PCR) Not Detected (NotDetected) B.parapertussis DNA PCR Not Detected (NotDetected) C. pneumoniae DNA (PCR) Not Detected (NotDetected) Coronavirus OC43 (PCR) Not Detected (NotDetected) Coronavirus HKU1 (PCR) Not Detected (NotDetected) Coronavirus 229E (PCR) Not Detected (NotDetected) SARS-CoV-2 (PCR) Not Detected (NotDetected) Coronavirus NL63 (PCR) Not Detected (NotDetected) Human Metapneumovir PCR Not Detected (NotDetected) Influenza Type A (PCR) Not Detected (NotDetected) Influenza Type B (PCR) Not Detected (NotDetected) M. pneumoniae (PCR) Not Detected (NotDetected) Parainfluenza 1 (PCR) Not Detected (NotDetected) Parainfluenza 2 (PCR) Not Detected (NotDetected) Parainfluenza 3 (PCR) Not Detected (NotDetected) Parainfluenza 4 (PCR) Not Detected (NotDetected) RSV (PCR) Not Detected (NotDetected) Entero/Rhino (PCR) Not Detected (NotDetected) Administered Medications Apixaban (Apixaban 2.5 Mg Tab) 2.5 mg PO BID VENICE Stop: 06/27/25 20:59 Last Admin: 05/30/25 08:34 Dose: 2.5 mg Documented By: Admin: 05/29/25 20:10 Dose: 2.5 mg Documented By: constantino Admin: 05/29/25 07:44 Dose: 2.5 mg Documented By: Admin: 05/28/25 20:11 Dose: 2.5 mg Documented By: constantino Aspirin (Aspirin 81 Mg Ectab) 81 mg PO QAM VENICE Stop: 06/29/25 08:59 Last Admin: 05/30/25 08:58 Dose: 81 mg Documented By: TAJ Docusate Sodium (Docusate Sodium 100 Mg Cap) 100 mg PO BID VENICE Stop: 06/26/25 20:59 Last Admin: 05/30/25 08:33 Dose: Not Given Documented By: Admin: 05/29/25 20:10 Dose: 100 mg Documented By: constantino Admin: 05/29/25 07:42 Dose: Not Given Documented By: Admin: 05/28/25 20:11 Dose: Not Given Documented By: constantino Admin: 05/28/25 08:38 Dose: 100 mg Documented By: Admin: 05/27/25 20:14 Dose: 100 mg Documented By: constantino Donepezil HCl (Donepezil Hcl 10 Mg Tab) 10 mg PO HS [facility] Stop: 06/26/25 20:59 Last Admin: 05/28/25 20:12 Dose: 10 mg Documented By: asg Admin: 05/27/25 20:15 Dose: 10 mg Documented By: asbelen Ezetimibe (Ezetimibe 10 Mg Tab) 10 mg PO HS VENICE Stop: 06/26/25 20:59 Last Admin: 05/29/25 20:10 Dose: 10 mg Documented By: asg Admin: 05/28/25 20:12 Dose: 10 mg Documented By: asbelen Admin: 05/27/25 20:15 Dose: 10 mg Documented By: constantino Furosemide (Furosemide 40 Mg Tab) 40 mg PO QAM VENICE Stop: 06/29/25 08:59 Last Admin: 05/30/25 08:58 Dose: 40 mg Documented By: TAJ Hydromorphone HCl (Hydromorphone Inj 0.5 Mg/0.5 Ml Syr) 0.25 mg IV Q4H PRN PRN Reason: Pain or Pre PT Stop: 06/10/25 18:17 Last Admin: 05/29/25 07:49 Dose: 0.25 mg Documented By: ROSALINDA Vancomycin HCl 1,500 mg/ (Sodium Chloride) 530 mls @ 200 mls/hr IV Q24H [facility]ENICE Stop: 06/03/25 10:59 Last Infusion: 05/30/25 15:53 Dose: Infused Documented By: Admin: 05/30/25 12:00 Dose: 200 mls/hr Documented By: Infusion: 05/29/25 13:55 Dose: Infused Documented By: Admin: 05/29/25 10:36 Dose: 200 mls/hr Documented By: Infusion: 05/28/25 14:34 Dose: Infused Documented By: Admin: 05/28/25 11:43 Dose: 200 mls/hr Documented By: Infusion: 05/27/25 14:14 Dose: Infused Documented By: Admin: 05/27/25 11:11 Dose: 200 mls/hr Documented By: WANDA Isosorbide Mononitrate (Isosorbide Clinch Extended Rel 60 Mg Tabcr) 120 mg PO QAM VENICE Stop: 06/26/25 08:59 Last Admin: 05/30/25 08:58 Dose: 120 mg Documented By: Admin: 05/29/25 07:43 Dose: 120 mg Documented By: Admin: 05/28/25 08:32 Dose: 120 mg Documented By: Admin: 05/27/25 11:04 Dose: 120 mg Documented By: JORDAN Ketorolac Tromethamine (Ketorolac Tromethamine 15 Mg/Ml Vial) 15 mg IV Q6H PRN PRN Reason: Breakthrough Pain Last Admin: 05/27/25 18:38 Dose: 15 mg Documented By: ROSALINDA Lactobacillus Acidophilus (Advanced Probiotic 625 Mg Capsule) 1,250 mg PO DAILY VENICE Stop: 06/27/25 08:59 Last Admin: 05/30/25 08:34 Dose: 1,250 mg Documented By: Admin: 05/29/25 07:44 Dose: 1,250 mg Documented By: Admin: 05/28/25 08:35 Dose: 1,250 mg Documented By: LING Memantine (Memantine Hcl 10 Mg Tab) 10 mg PO BID VENICE Stop: 06/26/25 08:59 Last Admin: 05/30/25 08:34 Dose: 10 mg Documented By: Admin: 05/29/25 20:10 Dose: 10 mg Documented By: constantino Admin: 05/29/25 07:45 Dose: 10 mg Documented By: Admin: 05/28/25 20:12 Dose: 10 mg Documented By: constantino Admin: 05/28/25 08:32 Dose: 10 mg Documented By: Admin: 05/27/25 20:15 Dose: 10 mg Documented By: constantino Admin: 05/27/25 11:04 Dose: 10 mg Documented By: WANDA Metoprolol Succinate (Metoprolol Succ 50mg Ext Rel Tab) 50 mg PO DAILY VENICE Stop: 06/26/25 08:59 Last Admin: 05/30/25 08:34 Dose: 50 mg Documented By: Admin: 05/29/25 07:44 Dose: 50 mg Documented By: Admin: 05/28/25 08:36 Dose: 50 mg Documented By: Admin: 05/27/25 11:04 Dose: 50 mg Documented By: JORDAN Multivitamins (Multivitamin Tab) 1 tab PO QAM VENICE Stop: 06/27/25 08:59 Last Admin: 05/30/25 08:35 Dose: 1 tab Documented By: Admin: 05/29/25 07:43 Dose: 1 tab Documented By: Admin: 05/28/25 08:37 Dose: Not Given Documented By: LING Pantoprazole Sodium (Pantoprazole 40 Mg Tab) 40 mg PO DAILY [facility]ENICE Stop: 06/26/25 08:59 Last Admin: 05/30/25 08:34 Dose: 40 mg Documented By: Admin: 05/29/25 07:43 Dose: 40 mg Documented By: Admin: 05/28/25 08:33 Dose: 40 mg Documented By: Admin: 05/27/25 11:05 Dose: 40 mg Documented By: JORDAN Sennosides (Senna 8.6 Mg Tab) 17.2 mg PO HS [facility]ENICE Stop: 06/26/25 20:59 Last Admin: 05/29/25 20:11 Dose: 17.2 mg Documented By: constantino Admin: 05/28/25 20:13 Dose: Not Given Documented By: constantino Admin: 05/27/25 20:16 Dose: 17.2 mg Documented By: constantino Sertraline HCl (Sertraline Hcl 100 Mg Tablet) 100 mg PO QA [facility]ENICE Stop: 06/26/25 08:59 Last Admin: 05/30/25 08:35 Dose: 100 mg Documented By: Admin: 05/29/25 07:44 Dose: 100 mg Documented By: Admin: 05/28/25 08:33 Dose: 100 mg Documented By: Admin: 05/27/25 11:05 Dose: 100 mg Documented By: JORDAN Simvastatin (Simvastatin 40 Mg Tab) 40 mg PO [facility]; Protocol Stop: 06/26/25 20:59 Last Admin: 05/29/25 20:11 Dose: 40 mg Documented By: constantino Admin: 05/28/25 20:13 Dose: 40 mg Documented By: constantino Admin: 05/27/25 20:16 Dose: 40 mg Documented By: constantino Tramadol HCl (Tramadol Hcl 50 Mg Tablet) 50 - 100 mg PO Q4H PRN PRN Reason: Pain & Pre PT Stop: 06/26/25 18:17 Last Admin: 05/28/25 15:08 Dose: 100 mg Documented By: Admin: 05/27/25 20:17 Dose: 100 mg Documented By: constantino Discontinued Medications Diphenhydramine HCl (Diphenhydramine 50 Mg/Ml Vial) 25 mg IV NOW STA Stop: 05/27/25 00:42 Last Admin: 05/27/25 00:44 Dose: 25 mg Documented By: LEONCIO Diphenhydramine HCl (Diphenhydramine 50 Mg/Ml Vial) Confirm Administered Dose 50 mg .ROUTE .STK-MED ONE Stop: 05/27/25 00:44 Last Admin: 05/27/25 00:44 Dose: Not Given Documented By: LEONCIO Fentanyl Citrate (Fentanyl Citrate Pf 100 Mcg/2 Ml Vial) 25 mcg IV Q5M PRN PRN Reason: PACU Use Only-Pain Stop: 05/27/25 23:25 Last Admin: 05/27/25 17:43 Dose: 25 mcg Documented By: Admin: 05/27/25 17:00 Dose: 25 mcg Documented By: Admin: 05/27/25 16:55 Dose: 25 mcg Documented By: ROGE Cefepime HCl (Maxipime 2000mg) 2,000 mg in 20 mls @ 5 mls/min IV NOW STA; Protocol Stop: 05/26/25 18:37 Last Admin: 05/26/25 19:32 Dose: 5 mls/min Documented By: MARIZA Vancomycin HCl 2,250 mg/ (Sodium Chloride) 545 mls @ 200 mls/hr IV NOW ONE Stop: 05/26/25 22:21 Last Infusion: 05/27/25 00:22 Dose: Infused Documented By: Admin: 05/26/25 21:20 Dose: 200 mls/hr Documented By: MARIZA Ceftriaxone Sodium (Rocephin) 2,000 mg in 50 mls @ 100 mls/hr IV NOW ONE Stop: 05/26/25 22:44 Last Infusion: 05/27/25 00:49 Dose: Infused Documented By: Infusion: 05/27/25 00:34 Dose: 0 mls/hr Documented By: Admin: 05/27/25 00:13 Dose: 100 mls/hr Documented By: CAMILA Lactated Ringer's (Lr) 1,000 mls @ 15 mls/hr IV .Q24H [facility] Stop: 05/30/25 14:29 Last Infusion: 05/27/25 18:32 Dose: Infused Documented By: Admin: 05/27/25 14:30 Dose: 15 mls/hr Documented By: MERCY Sodium Chloride (Nss) 1,000 mls @ 100 mls/hr IV .Q10H [facility]ENICE Stop: 05/28/25 06:00 Last Infusion: 05/28/25 06:43 Dose: Infused Documented By: asbelen Admin: 05/28/25 04:06 Dose: 100 mls/hr Documented By: constantino Infusion: 05/28/25 04:06 Dose: Infused Documented By: constantino Admin: 05/27/25 18:33 Dose: 100 mls/hr Documented By: ROSALINDA Melatonin (Melatonin 3 Mg Tab) 3 mg PO HS ONE Stop: 05/27/25 02:23 Last Admin: 05/27/25 02:29 Dose: 3 mg Documented By: LEONCIO Imaging Data Radiologist's Impression: Chest X-Ray 05/26/25 18:34 EXAM: X-ray chest one-view portable CLINICAL HISTORY: Sepsis PRIORS: 05/16/2025, 04/07/2023 TECHNIQUE: Upright portable AP FINDINGS: Patient is significantly rotated. A left-sided cardiac device noted with multiple leads present and median sternotomy wires, unchanged. No confluent airspace consolidation airspace consolidation. No pleural effusion. Heart size is unchanged. No pneumothorax. Trachea is patent. Osseous structures demonstrate no acute abnormality. No radiopaque foreign body. IMPRESSION: No plain film evidence of an acute cardiopulmonary process with unchanged appearance of the chest. Electronically signed by Jyoti Huston 05-26-2025 7:20 PM Discharge Plan Visit Data Chief Complaint: Skin Problem Stated Complaint: ABSCESS FOLLOWING CELLULITIS, OR TOMORROW ED Provider: Shailesh Mckeon Discharge Problem: Cellulitis of right leg, Prepatellar bursitis of right knee, Chronic anemia Patient Disposition: Admitted As Inpatient Condition: Fair Discharge Instructions Interventions: ED Discharge Assessment Last Done: 05/26/25 22:00
[2025-05-26 20:04] LABS: Chlamydia pneumoniae PCR Not Detected (NotDetected); Coronavirus 229E PCR Not Detected (NotDetected); Coronavirus CoV-2 (COVID19)PCR Not Detected (NotDetected); Coronavirus HKU1 PCR Not Detected (NotDetected); Coronavirus NL63 PCR Not Detected (NotDetected); Coronavirus OC43PCR Not Detected (NotDetected); Human Metapneumovirus PCR Not Detected (NotDetected); Parainfluenza Virus 1 PCR Not Detected (NotDetected); Parainfluenza Virus 2 PCR Not Detected (NotDetected); Parainfluenza Virus 3 PCR Not Detected (NotDetected); Parainfluenza Virus 4 PCR Not Detected (NotDetected); Respiratory Syncytial VirusPCR Not Detected (NotDetected); Rhinovirus/Enterovirus PCR Not Detected (NotDetected)
--- NOTE | 2025-05-26 21:12 | History & Physical Report ---
Date of Service May 26, 2025 Assessment & Plan (1) Cellulitis of right leg: (2) CAD (coronary artery disease): (3) EILEEN on CPAP: (4) Essential hypertension: (5) COPD (chronic obstructive pulmonary disease): (6) GERD (gastroesophageal reflux disease): (7) Dementia: Plan 85-year-old male with history of coronary artery disease status post stent, status post three-vessel CABG in 2012, pacemaker in place, ischemic cardiomyopathy/heart failure with reduced EF (last echo in 2022 with EF of 50 to 55%, significant inferior and inferolateral hypokinesis) presenting with worsening warmth, redness and swelling of right lower extremity. 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 Some concern about possible joint infection. Patient is planning to go to the operating room tomorrow with Dr. Gruber for a washout of the lesion, possible exchange of hardware should the in fection spread to the prosthesis. #Cellulitis of the right legpatient is afebrile, hemodynamically stable, no leukocytosis Elevated ESR = 65. Normal CRP and negative procalcitonin. Per comparison of photos of the right knee supplied by patient's , the redness/swelling/edema actually appears to be improving. Wound culture was obtained earlier today and shows few white blood cells and no organisms. Do not strongly feel that this represents a deeper infection. Admit to medical Maintain isolation precautionscontactdue to patient's MRSA positive nares Follow cultures Will keep patient n.p.o. after midnight Plan for the emergency Plan for OR tomorrow with Dr. Emanuel, possible prosthesis exchange pending depth of infection Tylenol as needed for pain or fever Vancomycin #Coronary artery diseasepatient denies chest pain. No EKG changes. patient does have significant underlying coronary artery disease status post stent and subsequent three-vessel CABG however, does not demonstrate evidence of active disease. states that he does not complain of chest pain or shortness of breath. His exercise tolerance is adequate and he is able to climb up a flight of stairs without difficulty. He is compliant with his medications. He follows with cardiology. No evidence of decompensated heart failure such as edema, orthopnea, weight gain, worsening cough or shortness of breath. His last echocardiogram was performed in 2022. Per RCRI criteria, patient is at elevated risk of perioperative cardiac complica tions given his history of underlying cardiac disease, ischemia cardiomyopathy/heart failure with reduced EF. Will check BNP with morning labs Continue metoprolol 50 mg p.o. daily Continue simvastatin 40 mg p.o. nightly and Zetia 10 mg daily Continue isosorbide mononitrate 120 mg p.o. every morning Will hold aspirin for now Will hold Entresto due to increased risk of perioperative hypotension and renal dysfunction Will hold patient's Lasix Patient will need telemetry monitoring following surgical intervention Patient's is kindly requesting that we place a cardiology consultation for additional preoperative assessment as patient is followed by Dr. Blackwell. Will place consult as requested. #COPDpatient does not use oxygen or inhalers Monitor respiratory status closely postoperatively #Essential hypertensionblood pressure is acceptable at present Continue metoprolol, isosorbide Holding Entresto and Lasix preoperatively Continue to monitor #GERD Continue Protonix #Dementia without behavioral disturbances/mental health Continue Aricept 10 mg p.o. nightly Continue Namenda 10 mg p.o. twice daily Continue Zoloft 100 mg p.o. every morning Frequent orientation Delirium prevention strategies #EILEEN on CPAP Continue CPAP History of Present Illness Chief Complaint: right lower extremity cellulitis Primary Care Provider: [facility] Ja[facility] Elbert Sesay is an 85yo male with history of Hypertension, COPD, atrial fibrillation, coronary artery disease status post stent to RCA in 2009, CABG x 3 vessel in 2012 following complication of attempted RCA PCI at [place], advanced heart block with MANAGED CARE PROVIDER pacemaker in place, and Alzheimer's dementia, presenting with redness/pain/swelling of right lower extremity. Patient was recently admitted to [facility] from after presenting with several days of weakness and redness of the right knee. He was found to have a left lower lobe pneumonia as well as cellulitis of the right lower extremity. He was managed with IV ceftriaxone and doxycycline and ultimately discharged home on augmentin ([id number] 1 tab p.o. twice daily x 5 days) and doxycycline (100 mg p.o. twice daily x 5 days). Erythema of the right lower extremity noted to be improved and patient with full range of motion. Low suspicion for septic joint at time of discharge. Over the last several days, patient has had worsening redness, pain and swelling of the right lower extremity. he was seen by his PCP on 05/23/2025 and noted to have progression of the right lower extremity cellulitis. He was restarted on Augmentin and doxycycline with plans to follow-up in 1 week. He has had some nausea as well as chills and fatigue. Otherwise denies chest pain, new or worsening shortness of breath, fevers, chills, rigors, abdominal pain, vomiting, diarrhea, edema, orthopnea (although he cannot lay flat due to kyphoscoliosis) In the ER patient is afebrile, hemodynamically stable and nontoxic in appearance. He was administered a dose of ceftriaxone And subsequently developed hives. No shortness of breath or wheeze. Ceftriaxone was discontinued and patient was administered IV Benadryl with improvement in his symptoms. Of note, he did receive this medication during his last hospitalization without difficulty. Allergies Allergy/AdvReac Type Severity Reaction Status Date / Time Sulfa (Sulfonamide Allergy Mild rash Verified 05/23/25 11:45 Antibiotics) ceftriaxone Allergy Hives Verified 05/27/25 00:40 lisinopril AdvReac Intermediate cough Verified 05/23/25 11:45 metoclopramide AdvReac Intermediate Depression Verified 05/23/25 11:45 oxycodone [From OxyContin] AdvReac Intermediate Hallucinati Verified 05/23/25 11:45 ons ciprofloxacin [From Cipro] AdvReac Unknown see notes Verified 05/23/25 11:45 Home Medications Medication Instructions Recorded Confirmed Type multivitamin (Daily Multi-Vitamin 1 tab PO DAILY 09/07/20 05/26/25 History tablet) donepezil 10 mg tablet 10 mg PO HS 12/03/24 05/26/25 History memantine 10 mg tablet 10 mg PO BID 12/03/24 05/26/25 History sertraline 100 mg tablet (Zoloft) 100 mg PO QAM #90 tabs 03/09/25 05/26/25 Rx esomeprazole magnesium 40 mg 40 mg PO QPM #90 caps 03/18/25 05/26/25 Rx capsule,delayed release (Nexium) ezetimibe 10 mg-simvastatin 40 mg 1 tab PO HS #90 tabs 03/18/25 05/26/25 Rx tablet (Vytorin) furosemide 40 mg tablet 40 mg PO QAM #90 tabs 03/18/25 05/26/25 Rx metoprolol succinate 50 mg 50 mg PO DAILY #90 tabs 03/18/25 05/26/25 Rx tablet,extended release 24 hr nitroglycerin 0.4 mg sublingual 0.4 mg sublingual DIRECTED PRN 03/18/25 05/26/25 Rx tablet Chest Pain #25 tabs cholecalciferol (vitamin D3) 25 4,000 unit PO DAILY 04/07/25 05/26/25 History mcg (1,000 unit) capsule diaper,brief,adult,disposable #300 ea 04/07/25 05/26/25 Rx isosorbide mononitrate 60 mg 120 mg PO QAM 04/07/25 05/26/25 History tablet,extended release 24 hr reusable chux #10 ea 04/07/25 05/26/25 Rx aspirin 81 mg tablet,delayed 81 mg PO QAM 05/16/25 05/26/25 History release amoxicillin 875 mg-potassium 1 tab PO BID 7 days #14 tabs 05/23/25 05/26/25 Rx clavulanate 125 mg tablet doxycycline hyclate 100 mg capsule 100 mg PO BID 7 days #14 caps 05/23/25 05/26/25 Rx sacubitril 24 mg-valsartan 26 mg 1 - 2 tab PO UD 05/26/25 05/26/25 History tablet (Entresto) Past Med/Surg History Problem List Hypotension Left lower lobe pneumonia Cellulitis of right leg (Acute) Pneumonia (Acute) Chest pain (Acute) Generalized weakness (Acute) Urinary incontinence Fracture of toe of left foot Open wound of great toe Gastroenteritis due to norovirus (~08/28/24) Skin tear of right upper extremity Hyperlipidemia Bradycardia Near syncope Prostate cancer "DIAGNOSIS: Prostate, adenocarcinoma, codi 3 + 3, PSA 7.3, cT1c, group I Prostate Volume by U/S - 26.0 cc PSA Density - 0.280" Right knee DJD Incontinence URINARY Obstructive jaundice CAD (coronary artery disease) H/O atrial flutter Bladder fistula EILEEN on CPAP Essential hypertension COPD (chronic obstructive pulmonary disease) Non-ST elevation (NSTEMI) myocardial infarction GERD (gastroesophageal reflux disease) Dysphagia Depression Mixed conductive and sensorineural hearing loss of right ear with restricted hearing of left ear CHF (congestive heart failure) (Acute) Cardiomyopathy SSS (sick sinus syndrome) Biventricular cardiac pacemaker in situ Atrial fibrillation Frequent unifocal PVCs Iliac aneurysm Dementia Bladder stone Bladder neck contracture Pacemaker lead malfunction Hx of cardiac pacemaker (Chronic) 2/2 SSS/high grade AVB; [employer] implanted 2017 Last pacer check: within the last 6 months had pacer check-early 2022 Follows with [facility]/Dr. 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 History of urinary incontinence SMA stenosis asymptomatic, "incidental finding" per cardiology A-fib Incidentally noted episodic a.fib/a.flutter on PPM check- on ASA/beta alyssa, cardiology holding on anticoagulation in setting of hematuria Pulmonary HTN Noted per remote hx, Normal est RA and PA pressures per most recent 07/2020 echo CAD (coronary artery disease) S/P CABG x3 (2012), remote hx of cardiac stents x2 (7+ years ago) History of prostate cancer Kyphosis GERD (gastroesophageal reflux disease) controlled Sleep apnea CPAP Hx of myocardial infarction During cardiac cath (2012)- subsequent CABG x3 ("due to perforation of artery during cath") Rosacea Surgical History History of ERCP Hx laparoscopic cholecystectomy S/P CABG x 3 2012 S/P biventricular cardiac pacemaker procedure History of coronary artery bypass graft H/O three vessel coronary artery bypass S/P placement of cardiac pacemaker S/P CABG (coronary artery bypass graft) H/O cystoscopy Cystoscopy, laser lithopaxy, urethral dilation (09/14/19): MAC at [facility] Hx of bilateral cataract extraction + Lasik Hx of colonoscopy Hx of tooth extraction History of arthroplasty of right knee History of robot-assisted laparoscopic radical prostatectomy 2016 History of cardiac cath remote hx cardiac stents x2 04/2019: medically managed Family History Mother Hypertension Breast cancer Father Cardiac disorder Myocardial infarction Denies family history of Clotting disorder Social History Smoking Status: Never smoker Tobacco Type: Cigarettes Age Started Using Tobacco: 21; Age Quit Using Tobacco: 48; packs per day: 1; Second Hand Exposure: No; Do You Dip or Chew Tobacco: No; Hx Alcohol Use: Yes Alcohol type: beer Hx Substance Use: No Preferred Language: Bangladeshi Communication Ability: Effective Visual Impairment: Limited 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 Systems Repairer Operator Required: No Beliefs That Will Affect Care: None marital status: Current Living Situation: Spouse current occupational status: 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 Other Information That Helps Us Care for You: No Feels Safe at Home: Yes Safety Concerns: Feels Safe At This Time Childhood Exposure to Second-Hand Smoke: Yes caffeine: No during the past year weight has: decreased > 10 lbs Physical Activity Frequency: Daily Physical Activity Frequency Comment: walks dogs daily Seatbelt Use: always Sunscreen Use: Yes Assistive Devices: Cane and Hospital Bed Review of Systems Review of Systems: All systems reviewed & are unremarkable except as noted in HPI & below Physical Exam Physical Exam: General: patient resting comfortably, NAD, non-toxic in appearance, is able to answer his questions but is somewhat confused at baseline with underlying history of dementia as well HEENT: NC/AT, PERRL, EOMI, anicteric sclera, conjunctiva without injection, external ear normal to inspection and nontender, nares patent, moist mucus membranes, dentition intact, no oropharyngeal lesions, neck supple, trachea midline, no LAD, no thyromegaly, no JVD Heart: +S1/S2, regular, no m/r/g Lungs: equal air entry bilaterally, no rales/rhonchi/wheezes Abd: +BS, soft, NT/ND, no masses/organomegaly/ascites Ext: warmth, redness and tenderness to right lower extremity, no drainage fluid collection appreciated Neuro: nonfocal, speech intact, no facial droop, moving all extremities on command with equal strength 5/5 Results & Data Results & Data Vital Signs (Past 12 Hours) Vital Signs Temp Pulse Resp BP Pulse Ox O2 Del Method 05/26/25 20:00 67 13 102/59 L 97 Room Air 05/26/25 19:51 69 19 88/53 L 95 Room Air 05/26/25 19:30 71 16 82/56 L 95 05/26/25 19:19 77 05/26/25 19:18 77 15 95/59 L 95 05/26/25 18:34 69 16 96 Room Air 05/26/25 18:19 36.7 C 66 16 98/57 L 96 Room Air Laboratory Results Laboratory Results WBC 8.62 K/ul (4.8-10.8) 05/26/25 18:55 RBC 4.07 M/uL (4.70-6.10) L 05/26/25 18:55 Hgb 10.5 g/dl (14.0-18.0) L 05/26/25 18:55 Hct 33.4 % (42.0-52.0) L 05/26/25 18:55 MCV 82.1 fL (80.0-100.0) 05/26/25 18:55 MCH 25.8 pg (25.0-34.0) 05/26/25 18:55 MCHC 31.4 g/dL (32.0-36.0) L 05/26/25 18:55 RDW Std Deviation 41.0 fL (36.4-46.3) 05/26/25 18:55 RDW Coeff of Ricky 13.8 % (11.5-14.5) 05/26/25 18:55 Plt Count 207 K/uL (130-400) 05/26/25 18:55 MPV 10.2 fL (9.4-12.4) 05/26/25 18:55 Immature Gran % (Auto) 1.5 % 05/26/25 18:55 Neut % (Auto) 75.3 % 05/26/25 18:55 Lymph % (Auto) 12.4 % 05/26/25 18:55 [place] % (Auto) 7.4 % 05/26/25 18:55 Eos % (Auto) 2.9 % 05/26/25 18:55 Baso % (Auto) 0.5 % 05/26/25 18:55 Neut # (Auto) 6.49 K/uL (1.40-6.50) 05/26/25 18:55 Lymph # (Auto) 1.07 K/uL (1.20-3.40) L 05/26/25 18:55 [place] # (Auto) 0.64 K/uL (0.11-0.59) H 05/26/25 18:55 Eos # (Auto) 0.25 K/uL (0.00-0.50) 05/26/25 18:55 Baso # (Auto) 0.04 K/uL (0.00-0.20) 05/26/25 18:55 Immature Gran # (Auto) 0.13 K/uL (0.01-0.20) 05/26/25 18:55 ESR 65 mm/hr (0-20) H 05/26/25 19:25 PT 11.7 Seconds (9.0-12.0) 05/26/25 18:55 INR 1.1 (0.9-1.1) 05/26/25 18:55 APTT 28 Seconds (21-31) 05/26/25 18:55 PTT Ratio 1.0 05/26/25 18:55 Sodium 137 mmol/L (136-145) 05/26/25 18:55 Potassium 3.7 mmol/L (3.5-5.1) 05/26/25 18:55 Chloride 101 mmol/L (98-107) 05/26/25 18:55 Carbon Dioxide 27 mmol/L (21-32) 05/26/25 18:55 Anion Gap 9 (3-11) 05/26/25 18:55 BUN 21 mg/dl (6-23) 05/26/25 18:55 Creatinine 1.12 mg/dl (0.6-1.4) 05/26/25 18:55 Est Cr Clr Drug Dosing 59.7 ml/min 05/26/25 18:55 eGFR 65.18 05/26/25 18:55 BUN/Creatinine Ratio 18.8 (10-20) 05/26/25 18:55 Glucose 102 mg/dl (70-99(Fasting)) H 05/26/25 18:55 Lactate 1.6 mmol/L (0.4-2.0) 05/26/25 18:55 Calcium 9.4 mg/dl (8.6-10.3) 05/26/25 18:55 Magnesium 1.7 mg/dl (1.7-2.4) 05/26/25 18:55 Total Bilirubin 0.4 mg/dl (0.2-1.0) 05/26/25 18:55 Direct Bilirubin 0.1 mg/dl (0-0.2) 05/26/25 18:55 AST 14 U/L (13-39) 05/26/25 18:55 ALT 11 U/L (7-52) 05/26/25 18:55 Alkaline Phosphatase 64 U/L (34-104) 05/26/25 18:55 Troponin I High Sens 7.7 pg/ml (0-20) 05/26/25 18:55 C-Reactive Protein < 0.50 mg/dl (0-0.5) 05/26/25 18:55 Total Protein 7.8 gm/dl (6.0-8.3) 05/26/25 18:55 Albumin 4.0 gm/dl (3.4-5.0) 05/26/25 18:55 Procalcitonin 0.03 ng/ml (0-0.5) 05/26/25 18:55 Urine Color Yellow 05/26/25 23:24 Urine Appearance Clear (Clear) 05/26/25 23:24 Urine pH 5.5 (4.5-7.5) 05/26/25 23:24 Ur Specific [place] 1.019 (1.000-1.030) 05/26/25 23:24 Urine Protein Trace (Negative) H 05/26/25 23:24 Urine Glucose (UA) Negative (Negative) 05/26/25 23:24 Urine Ketones Negative (Negative) 05/26/25 23:24 Urine Blood 3+ (Negative) H 05/26/25 23:24 Urine Nitrite Negative (Negative) 05/26/25 23:24 Urine Bilirubin Negative (Negative) 05/26/25 23:24 Urine Urobilinogen Negative (Negative) 05/26/25 23:24 Ur Leukocyte Esterase Negative (Negative) 05/26/25 23:24 Urine WBC (Auto) 0-5 /hpf (0-5) 05/26/25 23:24 Urine RBC (Auto) >20 /hpf (0-2) H 05/26/25 23:24 U Hyaline Cast (Auto) 0-2 /lpf (0-2) 05/26/25 23:24 U Epithel Cells (Auto) 0-2 /hpf (0-2) 05/26/25 23:24 Urine Bacteria (Auto) None Seen (None Seen) 05/26/25 23:24 Calcium Oxalate Crystal Present (None Prsent) A 05/26/25 23:24 Urine Comment 05/26/25 23:24 Nasal Screen MRSA (PCR) Positive (Negative) A 05/26/25 18:55 Stl C. diff Tox B Gene Negative Cdiff Gene (Neg) 05/26/25 23:40 Stl C. diff [id number] NEGATIVE 05/26/25 23:40 Adenovirus (PCR) Not Detected (NotDetected) 05/26/25 18:55 B. pertussis DNA (PCR) Not Detected (NotDetected) 05/26/25 18:55 B.parapertussis DNA PCR Not Detected (NotDetected) 05/26/25 18:55 C. pneumoniae DNA (PCR) Not Detected (NotDetected) 05/26/25 18:55 Coronavirus OC43 (PCR) Not Detected (NotDetected) 05/26/25 18:55 Coronavirus HKU1 (PCR) Not Detected (NotDetected) 05/26/25 18:55 Coronavirus 229E (PCR) Not Detected (NotDetected) 05/26/25 18:55 SARS-CoV-2 (PCR) Not Detected (NotDetected) 05/26/25 18:55 Coronavirus NL63 (PCR) Not Detected (NotDetected) 05/26/25 18:55 Human Metapneumovir PCR Not Detected (NotDetected) 05/26/25 18:55 Influenza Type A (PCR) Not Detected (NotDetected) 05/26/25 18:55 Influenza Type B (PCR) Not Detected (NotDetected) 05/26/25 18:55 M. pneumoniae (PCR) Not Detected (NotDetected) 05/26/25 18:55 Parainfluenza 1 (PCR) Not Detected (NotDetected) 05/26/25 18:55 Parainfluenza 2 (PCR) Not Detected (NotDetected) 05/26/25 18:55 Parainfluenza 3 (PCR) Not Detected (NotDetected) 05/26/25 18:55 Parainfluenza 4 (PCR) Not Detected (NotDetected) 05/26/25 18:55 RSV (PCR) Not Detected (NotDetected) 05/26/25 18:55 Entero/Rhino (PCR) Not Detected (NotDetected) 05/26/25 18:55 Impressions Chest X-Ray 05/26/25 18:34 EXAM: X-ray chest one-view portable CLINICAL HISTORY: Sepsis PRIORS: 05/16/2025, 04/07/2023 TECHNIQUE: Upright portable AP FINDINGS: Patient is significantly rotated. A left-sided cardiac device noted with multiple leads present and median sternotomy wires, unchanged. No confluent airspace consolidation airspace consolidation. No pleural effusion. Heart size is unchanged. No pneumothorax. Trachea is patent. Osseous structures demonstrate no acute abnormality. No radiopaque foreign body. IMPRESSION: No plain film evidence of an acute cardiopulmonary process with unchanged appearance of the chest. Electronically signed by Jyoti Huston 05-26-2025 7:20 PM Diagnostic Findings 2D echo 05/07/2023 with normal LV size, mild concentric LVH. LVEF of 50 to 55%. Severe basal inferior, inferolateral hypokinesis. Abnormal septal motion consistent with conduction abnormality. Normal RV size with mild RV dysfunction. Mild aortic regurgitation. Mild mitral regurgitation. Normal RA and PA pressures. Grade 1 diastolic dysfunction. Study from 2019no significant changes ECG Additional Comments: EKG with ventricular paced rhythm at 69 bpm, PVCs present, no acute ischemic changes PG Care Time/CCT Total # of Minutes Spent Total Time Spent with Patient: Total time spent is greater than 50% in coordination of care (as documented) at patient's floor/unit and/or counseling patient: Coding Level of Care Code 51599 INT INP/OBS CARE 3/75MIN Diagnoses Cellulitis of right leg L03.115 Coronary artery disease involving pechanga coronary artery of pechanga heart with angina pectoris I25.119 Coronary Disease-Associated Artery/Lesion type: [place]changa artery [place] vs. transplanted heart: [place]anga heart Associated angina: with unspecified angina EILEEN on CPAP G47.33; Z99.89 Essential hypertension I10 Chronic obstructive pulmonary disease, unspecified COPD type J44.9 COPD type: unspecified COPD Gastroesophageal reflux disease, esophagitis presence not specified K21.9 Esophagitis presence: esophagitis presence not specified Dementia F03.90 (2) CAD (coronary artery disease) Coronary Disease-Associated Artery/Lesion type: [place] artery [place] vs. transplanted heart: [place]changa heart Associated angina: with unspecified angina Qualified Code(s): I25.119 - Atherosclerotic heart disease of [place] coronary artery with unspecified angina pectoris (5) COPD (chronic obstructive pulmonary disease) COPD type: unspecified COPD Qualified Code(s): J44.9 - Chronic obstructive pulmonary disease, unspecified (6) GERD (gastroesophageal reflux disease) Esophagitis presence: esophagitis presence not specified Qualified Code(s): K21.9 - Gastro-esophageal reflux disease without esophagitis
[2025-05-26] MEDS: VANCOMYCIN HCL 2,250 MG in SODIUM CHLORIDE 0.9% 500 ML IV ONE (21:20)
[2025-05-26] MEDS ORDERED: ONDANSETRON INJ 2 MG/ML 2 ML VIAL IV PRN (22:00)
[2025-05-26] MEDS ORDERED: DOCUSATE SODIUM 100 MG CAP PO PRN (22:00)
[2025-05-26 23:55] LABS: Appearance Urine Clear (Clear); Bacteria Urine Automated None Seen (None Seen); Cast Urine Automated 0-2 /lpf (0-2); Epithelial Cell Urine Auto 0-2 /hpf (0-2); Glucose Urine UA Negative (Negative); RBC Urine Automated >20 /hpf (0-2); WBC Urine Automated 0-5 /hpf (0-5)
[2025-05-27] MEDS: cefTRIAXone SODIUM 2,000 MG/50 ML BAG IV ONE (00:13)
[2025-05-27 00:36] LABS: Cdiff Toxin B Gene (2yr or >) Negative Cdiff Gene (Neg)
[2025-05-27] MEDS: diphenhydrAMINE 50 MG/ML VIAL ONE (00:44)
[2025-05-27] MEDS: diphenhydrAMINE 50 MG/ML VIAL IV STA (00:44)
[2025-05-27] MEDS ORDERED: VANCOMYCIN CONSULT ACTIVE PRN (02:03)
[2025-05-27] MEDS ORDERED: VANCOMYCIN HCL / NSS 1,000 MG/270 ML BAG IV SCH (02:15)
[2025-05-27] MEDS: MELATONIN 3 MG TAB PO ONE (02:29)
--- NOTE | 2025-05-27 02:37 | Pharmacy Report ---
Pharmacy PK ABX Note - Date of Service May 27, 2025 - Assessment and Plan Assessment 85 year old M receiving vancomycin for treatment of cellulitis of the right leg r/o deeper infection. Pertinent microbiologic data includes: blood cultures pending. OR planned later today with Dr. Emanuel for possible prothesis exchange and infection evaluation. Day # 1 of antimicrobial therapy. Plan Vancomycin * Loading dose: 2250 mg IV x 1 * Maintenance dose: 1500 mg IV every 24 hours starting 05/27 @ 1100. * Regimen is predicted to achieve target AUC/SARAH of 400-600 mg/L.hr * Random level ordered for: 05/30/25 with AM labs. Sooner if indicated based on clinical status. Pharmacy will continue to follow and will adjust dose/frequency as necessary. Thank you. Pharmacy has transitioned to AUC monitoring for vancomycin. AUC/SARAH is the preferred PK/PD target and is associated with decreased risk of nephrotoxicity compared to traditional trough targets.
[2025-05-27 05:01] LABS: Hematocrit (blood only) 31.0 % (42.0-52.0); Hemoglobin 10.1 g/dl (14.0-18.0); Mean Corpuscular Hemoglobin 26.8 pg (25.0-34.0); Mean Corpuscular Volume 82.2 fL (80.0-100.0); Platelet Count 161 K/uL (130-400); RDW Standard Deviation 40.9 fL (36.4-46.3); Red Blood Count 3.77 M/uL (4.70-6.10); White Blood Count 6.28 K/ul (4.8-10.8)
[2025-05-27 05:17] LABS: Anion Gap 7.0 (3-11); Blood Urea Nitrogen 20.0 mg/dl (6-23); Calcium 8.8 mg/dl (8.6-10.3); Carbon Dioxide 27.0 mmol/L (21-32); Chloride 103.0 mmol/L (98-107); Creatinine Clr Calc Pharmacy 64.1 ml/min; Glucose 101.0 mg/dl (70-99(Fasting)); Potassium 3.8 mmol/L (3.5-5.1); Sodium 137.0 mmol/L (136-145)
--- NOTE | 2025-05-27 10:30 | Anesthesiology Consultation ---
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 Consults Requested none History Surgery Operation Date: 05/27/25 07:50 Proposed Procedures p Right Prepatellar Bursa Incision and Drainage Versus - Juanpablo Emanuel MD s Possible Poly Exchange - Juanpablo Emanuel MD Height/Weight Height: 6 ft Weight: 96 kg Allergies Allergy/AdvReac Type Severity Reaction Status Date / Time Sulfa (Sulfonamide Allergy Mild rash Verified 05/23/25 11:45 Antibiotics) ceftriaxone Allergy Hives Verified 05/27/25 00:40 lisinopril AdvReac Intermediate cough Verified 05/23/25 11:45 metoclopramide AdvReac Intermediate Depression Verified 05/23/25 11:45 oxycodone [From OxyContin] AdvReac Intermediate Hallucinati Verified 05/23/25 11:45 ons ciprofloxacin [From Cipro] AdvReac Unknown see notes Verified 05/23/25 11:45 Medications Home Medications Medication Instructions Recorded Confirmed Last Taken multivitamin (Daily Multi-Vitamin 1 tab PO DAILY 09/07/20 05/26/25 05/16/25 tablet) donepezil 10 mg tablet 10 mg PO HS 12/03/24 05/26/25 05/15/25 memantine 10 mg tablet 10 mg PO BID 12/03/24 05/26/25 05/16/25 08:00 sertraline 100 mg tablet (Zoloft) 100 mg PO QAM #90 tabs 03/09/25 05/26/25 05/16/25 esomeprazole magnesium 40 mg 40 mg PO QPM #90 caps 03/18/25 05/26/25 05/15/25 capsule,delayed release (Nexium) ezetimibe 10 mg-simvastatin 40 mg 1 tab PO HS #90 tabs 03/18/25 05/26/25 05/15/25 tablet (Vytorin) furosemide 40 mg tablet 40 mg PO QAM #90 tabs 03/18/25 05/26/25 05/16/25 metoprolol succinate 50 mg 50 mg PO DAILY #90 tabs 03/18/25 05/26/25 05/16/25 tablet,extended release 24 hr nitroglycerin 0.4 mg sublingual 0.4 mg sublingual DIRECTED PRN 03/18/25 05/26/25 Unknown tablet Chest Pain #25 tabs cholecalciferol (vitamin D3) 25 4,000 unit PO DAILY 04/07/25 05/26/25 05/16/25 mcg (1,000 unit) capsule diaper,brief,adult,disposable #300 ea 04/07/25 05/26/25 Unknown isosorbide mononitrate 60 mg 120 mg PO QAM 04/07/25 05/26/25 05/16/25 tablet,extended release 24 hr reusable chux #10 ea 04/07/25 05/26/25 Unknown aspirin 81 mg tablet,delayed 81 mg PO QAM 05/16/25 05/26/25 05/16/25 release amoxicillin 875 mg-potassium 1 tab PO BID 7 days #14 tabs 05/23/25 05/26/25 Unknown clavulanate 125 mg tablet doxycycline hyclate 100 mg capsule 100 mg PO BID 7 days #14 caps 05/23/25 05/26/25 Unknown sacubitril 24 mg-valsartan 26 mg 1 - 2 tab PO UD 05/26/25 05/26/25 Unknown tablet (Entresto) NPO Date Last Intake of Fluids: 05/26/25 Time Last Intake of Fluids: 23:00 Date Last Intake of Solids: 05/26/25 Time Last Intake of Solids: 19:00 Past Medical History Medical History Chronic anemia Hgb baseline 11-12 range per chart review Urge incontinence of urine 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 Recurrent UTI NSVT (nonsustained ventricular tachycardia) Low testosterone Laryngopharyngeal reflux Impotence, organic Hypertension 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 History of urinary incontinence SMA stenosis asymptomatic, "incidental finding" per cardiology A-fib Incidentally noted episodic a.fib/a.flutter on PPM check- on ASA/beta alyssa, cardiology holding on anticoagulation in setting of hematuria Pulmonary HTN Noted per remote hx, Normal est RA and PA pressures per most recent 07/2020 echo CAD (coronary artery disease) S/P CABG x3 (2012), remote hx of cardiac stents x2 (7+ years ago) History of prostate cancer Kyphosis GERD (gastroesophageal reflux disease) controlled Sleep apnea CPAP Hx of myocardial infarction During cardiac cath (2012)- subsequent CABG x3 ("due to perforation of artery during cath") Rosacea Past Family History Family History Mother Hypertension Breast cancer Father Cardiac disorder Myocardial infarction Denies family history of Clotting disorder Past Surgical History Surgical History History of ERCP Hx laparoscopic cholecystectomy S/P CABG x 3 2012 S/P biventricular cardiac pacemaker procedure History of coronary artery bypass graft H/O three vessel coronary artery bypass S/P placement of cardiac pacemaker S/P CABG (coronary artery bypass graft) H/O cystoscopy Cystoscopy, laser lithopaxy, urethral dilation (09/14/19): MAC at [facility] Hx of bilateral cataract extraction + Lasik Hx of colonoscopy Hx of tooth extraction History of arthroplasty of right knee History of robot-assisted laparoscopic radical prostatectomy 2016 History of cardiac cath remote hx cardiac stents x2 04/2019: medically managed Social History Smoking Status: Never smoker tobacco type: cigarettes Do You Dip or Chew Tobacco: No Hx Alcohol Use: Yes Alcohol type: beer alcohol intake frequency: 0-2 drinks per day Hx Substance Use: No substance use type: does not use Physical Exam Vital Signs Last Vital Signs Temp 36.7 C 05/26/25 23:30 Pulse 75 05/27/25 06:53 Resp 18 05/27/25 06:00 BP 90/65 L 05/27/25 06:00 Pulse Ox 95 05/27/25 06:00 O2 Del Method Room Air 05/27/25 06:00 Testing Laboratory Results 05/27/25 04:40 05/27/25 04:40 PT 11.7 Seconds (9.0-12.0) 05/26/25 18:55 INR 1.1 (0.9-1.1) 05/26/25 18:55 APTT 28 Seconds (21-31) 05/26/25 18:55 Urine Color Yellow 05/26/25 23:24 Urine Appearance Clear (Clear) 05/26/25 23:24 Urine pH 5.5 (4.5-7.5) 05/26/25 23:24 Ur Specific [place] 1.019 (1.000-1.030) 05/26/25 23:24 Urine Protein Trace (Negative) H 10/02/25 23:24 Urine Glucose (UA) Negative (Negative) 05/26/25 23:24 Urine Ketones Negative (Negative) 05/26/25 23:24 Urine Nitrite Negative (Negative) 05/26/25 23:24 Ur Leukocyte Esterase Negative (Negative) 05/26/25 23:24 Urine WBC (Auto) 0-5 /hpf (0-5) 05/26/25 23:24 Urine RBC (Auto) >20 /hpf (0-2) H 05/26/25 23:24 U Hyaline Cast (Auto) 0-2 /lpf (0-2) 05/26/25 23:24 U Epithel Cells (Auto) 0-2 /hpf (0-2) 05/26/25 23:24 Urine Bacteria (Auto) None Seen (None Seen) 05/26/25 23:24 Electrocardiogram Date: 05/26/25 Biventricular paced rhythm with PVCs Echocardiogram Date: 05/07/23 EF: 50-55 Valvular Disease: + no significant valvular disease severe basal inferior, inferolateral hypokinesis
--- NOTE | 2025-05-27 10:42 | Electrocardiogram Report ---
Test Reason : Blood Pressure : */* mmHG Vent. Rate : 69 BPM Atrial Rate : 72 BPM P-R Int : * ms QRS Dur : 148 ms QT Int : 514 ms P-R-T Axes : * 0 179 degrees QTcB Int : 550 ms Ventricular-paced rhythm with occasional Premature ventricular complexes Biventricular pacemaker detected Abnormal ECG When compared with ECG of 16-May-2025 19:10, Vent. rate has decreased by 3 bpm Confirmed by Daniel Villa ([id number]) on 05/27/2025 10:41:38 AM Referred By: REFERRED SELF Confirmed By: Daniel Villa
[2025-05-27] MEDS: ISOSORBIDE MONO EXTENDED REL 60 MG TABCR PO SCH (11:04)
[2025-05-27] MEDS: MEMANTINE HCL 10 MG TAB PO SCH (11:04)
[2025-05-27] MEDS: METOPROLOL SUCC 50MG EXT REL TAB PO SCH (11:04)
[2025-05-27] MEDS: SERTRALINE HCL 100 MG TABLET PO SCH (11:05)
[2025-05-27] MEDS: VANCOMYCIN HCL 1,500 MG in SODIUM CHLORIDE 0.9% 500 ML IV SCH (11:11)
--- NOTE | 2025-05-27 14:10 | Cardiology Consultation ---
Date of Consultation May 27, 2025 Assessment & Plan (1) CAD (coronary artery disease): (2) Cardiomyopathy: (3) Biventricular cardiac pacemaker in situ: (4) Valvular heart disease: Plan 1. Coronary disease: He is undergo postsurgical and percutaneous revascularization in the past. No current symptoms to suggest unstable coronary syndrome. Intermittent chest pains which are atypical in nature. At this point I think he should continue his outpatient regimen for secondary prevention. This would include a daily aspirin and Zetia. 2. Cardiomyopathy: Resolved on last echocardiogram. He appears well compensated currently. No evidence of pulmonary vascular congestion or significant lower extremity edema. He should continue his current regimen which includes furosemide, metoprolol succinate and Entresto. 3. Heart block: Status post implantation of biventricular ICD. He appears to have a good pacing percentage. Some ventricular ectopy at times. No recent therapies. 4. Valvular heart disease: Mild mitral and aortic regurgitation on echocardiogram in 2022. Not severe. No loud murmur on examination. This can be followed over time. From a preoperative standpoint he appears to be well compensated. No unstable coronary symptoms or decompensated heart failure. Rhythm control by his defibrillator. No recent arrhythmias detected. Standard precautions were applied which include avoiding significant blood loss and associated anemia, avoiding tachycardia, hypotension, hypertension and hypoxia. History of Present Illness Reason for Consultation: Preoperative evaluation Requesting Physician: Logan Attending Physician: Alejandro Phelps MD History of Present Illness The patient is an 85-year-old gentleman with a prior history of a right total knee arthroplasty who presented to the hospital with worsening redness and swelling of the right knee. The patient's provided most of the history today. She states that recently he was on an excursion with friends when he began to experience some knee discomfort. This developed into erythema and he was asked admitted to the hospital and treated for cellulitis recently. However, the knee became more red and swollen and appeared to have developed an abscess. He was therefore brought back to the emergency room and is scheduled for an operative intervention later today. According to the prior to his recent troubles the patient was ambulatory around the house. He does have a walker but commonly neglects to use it. He can go up and down the basement stairs on occasion. She states that he does get dyspneic on occasion with activity. However, no complaints of chest discomfort. He has not been experiencing dizziness or lightheadedness. No symptoms of palpitations. She states that in general has been sleeping well. She did not endorse any history of orthopnea or paroxysmal nocturnal dyspnea. Currently the patient is feeling well. He is lying supine in bed. Did not report symptoms of dyspnea at this time. Minimal discomfort in the right knee. Allergies Allergy/AdvReac Type Severity Reaction Status Date / Time Sulfa (Sulfonamide Allergy Mild rash Verified 05/23/25 11:45 Antibiotics) ceftriaxone Allergy Hives Verified 05/27/25 00:40 lisinopril AdvReac Intermediate cough Verified 05/23/25 11:45 metoclopramide AdvReac Intermediate Depression Verified 05/23/25 11:45 oxycodone [From OxyContin] AdvReac Intermediate Hallucinati Verified 05/23/25 11:45 ons ciprofloxacin [From Cipro] AdvReac Unknown see notes Verified 05/23/25 11:45 Home Medications Medication Instructions Recorded Confirmed Type multivitamin (Daily Multi-Vitamin 1 tab PO DAILY 09/07/20 05/26/25 History tablet) donepezil 10 mg tablet 10 mg PO HS 12/03/24 05/26/25 History memantine 10 mg tablet 10 mg PO BID 12/03/24 05/26/25 History sertraline 100 mg tablet (Zoloft) 100 mg PO QAM #90 tabs 03/09/25 05/26/25 Rx esomeprazole magnesium 40 mg 40 mg PO QPM #90 caps 03/18/25 05/26/25 Rx capsule,delayed release (Nexium) ezetimibe 10 mg-simvastatin 40 mg 1 tab PO HS #90 tabs 03/18/25 05/26/25 Rx tablet (Vytorin) furosemide 40 mg tablet 40 mg PO QAM #90 tabs 03/18/25 05/26/25 Rx metoprolol succinate 50 mg 50 mg PO DAILY #90 tabs 03/18/25 05/26/25 Rx tablet,extended release 24 hr nitroglycerin 0.4 mg sublingual 0.4 mg sublingual DIRECTED PRN 03/18/25 05/26/25 Rx tablet Chest Pain #25 tabs cholecalciferol (vitamin D3) 25 4,000 unit PO DAILY 04/07/25 05/26/25 History mcg (1,000 unit) capsule diaper,brief,adult,disposable #300 ea 04/07/25 05/26/25 Rx isosorbide mononitrate 60 mg 120 mg PO QAM 04/07/25 05/26/25 History tablet,extended release 24 hr reusable chux #10 ea 04/07/25 05/26/25 Rx aspirin 81 mg tablet,delayed 81 mg PO QAM 05/16/25 05/26/25 History release amoxicillin 875 mg-potassium 1 tab PO BID 7 days #14 tabs 05/23/25 05/26/25 Rx clavulanate 125 mg tablet doxycycline hyclate 100 mg capsule 100 mg PO BID 7 days #14 caps 05/23/25 05/26/25 Rx sacubitril 24 mg-valsartan 26 mg 1 - 2 tab PO UD 05/26/25 05/26/25 History tablet (Entresto) Patient History Medical History Chronic anemia Hgb baseline 11-12 range per chart review Urge incontinence of urine 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 Recurrent UTI NSVT (nonsustained ventricular tachycardia) Low testosterone Laryngopharyngeal reflux Impotence, organic Hypertension 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 History of urinary incontinence SMA stenosis asymptomatic, "incidental finding" per cardiology A-fib Incidentally noted episodic a.fib/a.flutter on PPM check- on ASA/beta alyssa, cardiology holding on anticoagulation in setting of hematuria Pulmonary HTN Noted per remote hx, Normal est RA and PA pressures per most recent 07/2020 echo CAD (coronary artery disease) S/P CABG x3 (2012), remote hx of cardiac stents x2 (7+ years ago) History of prostate cancer Kyphosis GERD (gastroesophageal reflux disease) controlled Sleep apnea CPAP Hx of myocardial infarction During cardiac cath (2012)- subsequent CABG x3 ("due to perforation of artery during cath") Rosacea Surgical History History of ERCP Hx laparoscopic cholecystectomy S/P CABG x 3 2012 S/P biventricular cardiac pacemaker procedure History of coronary artery bypass graft H/O three vessel coronary artery bypass S/P placement of cardiac pacemaker S/P CABG (coronary artery bypass graft) H/O cystoscopy Cystoscopy, laser lithopaxy, urethral dilation (1/21/20): MAC at [facility] Hx of bilateral cataract extraction + Lasik Hx of colonoscopy Hx of tooth extraction History of arthroplasty of right knee History of robot-assisted laparoscopic radical prostatectomy 2016 History of cardiac cath remote hx cardiac stents x2 04/2019: medically managed Family History Mother Hypertension Breast cancer Father Cardiac disorder Myocardial infarction Denies family history of Clotting disorder Social History Smoking Status: Never smoker Tobacco Type: Cigarettes Age Started Using Tobacco: 21; Age Quit Using Tobacco: 48; packs per day: 1; Second Hand Exposure: No; Do You Dip or Chew Tobacco: No; Hx Alcohol Use: Yes Alcohol type: beer Hx Substance Use: No Preferred Language: [place]i Communication Ability: Effective Visual Impairment: Limited Quality Systems Technician Required: No Beliefs That Will Affect Care: None marital status: Current Living Situation: Spouse 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 Rare and fleeting chest pains according to the . Often in the area of his defibrillator pulse generator. Physical Exam Physical Exam: The patient is alert and oriented. Mood and affect appeared normal. He answered all questions appropriately. Sometimes his for help answering questions. HEENT: Pupils are equal and reactive to light and accommodation. Extraocular movements are intact. The sclerae are anicteric. Neuro: Cranial nerves intact Lungs: Clear to auscultation bilaterally. He has good air movement without use of accessory muscles. No rales wheezes or rhonchi. Cardiac: Heart demonstrates a regular rate and rhythm with occasional ectopy. Normal S1 and S2. No murmurs on examination. Pulses: The patient has palpable radial pulses bilaterally that are equal in intensity Extremities: There was no evidence of hypoperfusion. There is no cyanosis or c lubbing. There is no edema. Skin: Patchy macular rash in the left upper pectoral area. Erythema involving the inner aspect of the right knee. Results & Data Vital Signs (Past 12 Hours) Vital Signs Pulse Resp BP Pulse Ox O2 Del Method 05/27/25 12:00 77 19 95 05/27/25 12:00 94/61 L 05/27/25 12:00 94/61 L 05/27/25 11:03 78 20 97 05/27/25 11:00 122/70 05/27/25 11:00 122/70 05/27/25 10:45 73 17 95 05/27/25 10:00 73 16 94 05/27/25 10:00 119/67 05/27/25 10:00 119/67 05/27/25 10:00 119/67 05/27/25 09:03 73 16 95 05/27/25 09:00 135/74 05/27/25 08:54 69 15 96 05/27/25 08:09 69 23 95 05/27/25 08:00 112/70 05/27/25 08:00 112/70 05/27/25 07:39 75 19 94 05/27/25 07:12 67 16 91 05/27/25 07:01 116/69 05/27/25 07:01 116/69 05/27/25 06:53 75 05/27/25 06:51 76 18 87 L 05/27/25 06:00 62 18 90/65 L 95 Room Air 05/27/25 05:45 70 15 94 Room Air 05/27/25 05:00 82 14 117/65 94 Room Air 05/27/25 04:00 72 20 109/67 95 Room Air 05/27/25 03:00 74 17 98/58 L 91 Room Air 05/27/25 02:33 71 17 111/85 95 Room Air Laboratory Results Abnormal Lab Results 05/26/25 05/26/25 05/26/25 18:55 19:25 23:24 WBC 8.62 RBC 4.07 L Hgb 10.5 L Hct 33.4 L MCV 82.1 MCH 25.8 MCHC 31.4 L RDW Std Deviation 41.0 RDW Coeff of Ricky 13.8 Plt Count 207 MPV 10.2 Immature Gran % (Auto) 1.5 Neut % (Auto) 75.3 Lymph % (Auto) 12.4 [place] % (Auto) 7.4 Eos % (Auto) 2.9 Baso % (Auto) 0.5 Neut # (Auto) 6.49 Lymph # (Auto) 1.07 L [place] # (Auto) 0.64 H Eos # (Auto) 0.25 Baso # (Auto) 0.04 Immature Gran # (Auto) 0.13 ESR 65 H PT 11.7 INR 1.1 APTT 28 PTT Ratio 1.0 Sodium 137 Potassium 3.7 Chloride 101 Carbon Dioxide 27 Anion Gap 9 BUN 21 Creatinine 1.12 Est Cr Clr Drug Dosing 59.7 eGFR 65.18 BUN/Creatinine Ratio 18.8 Glucose 102 H Lactate 1.6 Calcium 9.4 Magnesium 1.7 Total Bilirubin 0.4 Direct Bilirubin 0.1 AST 14 ALT 11 Alkaline Phosphatase 64 Troponin I High Sens 7.7 C-Reactive Protein < 0.50 B-Natriuretic Peptide Total Protein 7.8 Albumin 4.0 Procalcitonin 0.03 Urine Color Yellow Urine Appearance Clear Urine pH 5.5 Ur Specific [place] 1.019 Urine Protein Trace H Urine Glucose (UA) Negative Urine Ketones Negative Urine Blood 3+ H Urine Nitrite Negative Urine Bilirubin Negative Urine Urobilinogen Negative Ur Leukocyte Esterase Negative Urine WBC (Auto) 0-5 Urine RBC (Auto) >20 H U Hyaline Cast (Auto) 0-2 U Epithel Cells (Auto) 0-2 Urine Bacteria (Auto) None Seen Calcium Oxalate Crystal Present A Urine Comment Nasal Screen MRSA (PCR) Positive A Stl C. diff Tox B Gene Stl C. diff 027-NAP1-BI Adenovirus (PCR) Not Detected B. pertussis DNA (PCR) Not Detected B.parapertussis DNA PCR Not Detected C. pneumoniae DNA (PCR) Not Detected Coronavirus OC43 (PCR) Not Detected Coronavirus HKU1 (PCR) Not Detected Coronavirus 229E (PCR) Not Detected SARS-CoV-2 (PCR) Not Detected Coronavirus NL63 (PCR) Not Detected Human Metapneumovir PCR Not Detected Influenza Type A (PCR) Not Detected Influenza Type B (PCR) Not Detected M. pneumoniae (PCR) Not Detected Parainfluenza 1 (PCR) Not Detected Parainfluenza 2 (PCR) Not Detected Parainfluenza 3 (PCR) Not Detected Parainfluenza 4 (PCR) Not Detected RSV (PCR) Not Detected Entero/Rhino (PCR) Not Detected 05/26/25 05/27/25 23:40 04:40 WBC 6.28 RBC 3.77 L Hgb 10.1 L Hct 31.0 L MCV 82.2 MCH 26.8 MCHC 32.6 RDW Std Deviation 40.9 RDW Coeff of Ricky 13.5 Plt Count 161 MPV 10.1 Immature Gran % (Auto) Neut % (Auto) Lymph % (Auto) [place] % (Auto) Eos % (Auto) Baso % (Auto) Neut # (Auto) Lymph # (Auto) [place] # (Auto) Eos # (Auto) Baso # (Auto) Immature Gran # (Auto) ESR PT INR APTT PTT Ratio Sodium 137 Potassium 3.8 Chloride 103 Carbon Dioxide 27 Anion Gap 7 BUN 20 Creatinine 1.05 Est Cr Clr Drug Dosing 64.1 eGFR 70.43 BUN/Creatinine Ratio 19.0 Glucose 101 H Lactate Calcium 8.8 Magnesium Total Bilirubin Direct Bilirubin AST ALT Alkaline Phosphatase Troponin I High Sens C-Reactive Protein B-Natriuretic Peptide 187 H Total Protein Albumin Procalcitonin Urine Color Urine Appearance Urine pH Ur Specific [place] Urine Protein Urine Glucose (UA) Urine Ketones Urine Blood Urine Nitrite Urine Bilirubin Urine Urobilinogen Ur Leukocyte Esterase Urine WBC (Auto) Urine RBC (Auto) U Hyaline Cast (Auto) U Epithel Cells (Auto) Urine Bacteria (Auto) Calcium Oxalate Crystal Urine Comment Nasal Screen MRSA (PCR) Stl C. diff Tox B Gene Negative Cdiff Gene Stl C. diff 027-NAP1-BI NEGATIVE Adenovirus (PCR) B. pertussis DNA (PCR) B.parapertussis DNA PCR C. pneumoniae DNA (PCR) Coronavirus OC43 (PCR) Coronavirus HKU1 (PCR) Coronavirus 229E (PCR) SARS-CoV-2 (PCR) Coronavirus NL63 (PCR) Human Metapneumovir PCR Influenza Type A (PCR) Influenza Type B (PCR) M. pneumoniae (PCR) Parainfluenza 1 (PCR) Parainfluenza 2 (PCR) Parainfluenza 3 (PCR) Parainfluenza 4 (PCR) RSV (PCR) Entero/Rhino (PCR) Diagnostic Findings Prior cardiovascular studies: -Aortoiliac duplex 09/2023: No stenosis, aorta 2.3 cm, right 1.9 cm, left 1.6 cmEcho EF 50-55% inferior/inferolateral hypokinesis, mild LVH, normal RV size with mild RV dysfunction. Mild AI, mild MR, normal RA/PA. DD 1 - Echocardiogram 05/07/2023: Normal LV systolic function with ejection fraction of 50 to 55%. Regional wall motion abnormalities involving the basal inferior and inferior lateral muller. Mild aortic regurgitation. Mild mitral regurgitation. Aortoiliac duplex 03/2022: No stenosis. Aorta 2.3 cm. Right MIRYAM 1.8, left MIRYAM 1.6 Echo 07/2020:Mild LVH, LVEF 55%, severe basal inferior, inferolateral hypokinesis, mild to moderate AI, mild MR Aortoiliac duplex 05/2020: No significant stenosis. Ectatic at 2.4 cm. Aneury smal right and left common iliacs (right 1.8, left 1.6). Event monitor 07/2020: Occasional PACs, PVCs, 1 episode of nonsustained VT at 128 bpm. No arrhythmia correlate with symptoms Echo 10/2019: LV borderline dilated, EF 35-40, paradoxical septal motion, akinetic inferior wall, hypokinetic inferolateral mid anterior/anteroseptal, aortic sclerosis, PASP 35-40, normal RA -Lexiscan SPECT 08/2019: Small, mild anterolateral reversible defect. Small fixed apical defect. Large inferior infarct with [place]-infarct ischemia. Dilated LV, LVEF 22% with global hypokinesis and inferior akinesisCardiac cath 05/2019: With diffuse up to 70% disease, patent ROBERTO to LAD, ramus medium caliber diffuse up to 90% disease with patent vein graft to RI. 100% dominant proximal RCA occlusion. SVG to PLB patent with 90% focal stenosis proximal to anastomosis as well as distal to anastomosis. Lexiscan SPECT 03/2019: Small, mild reversible anterolateral perfusion defect, inferior infarct. LVEF 34% with inferior akinesis. No changes from 04/02/2018 Echo 06/2018: mild LVH, EF 50-55%. Hypokinesis of inferior base. Mild AI Cardiac catheterization 03/2018: 80% mid LAD, 60% diffuse circumflex, ramus 90% proximal, RCA 100% proximal. Patent ROBERTO to LAD, SVG to ramus, SVG to PDA. 48-hour Holter 03/2018: Frequent ventricular ectopy, ventricular runs and atrial ectopy Chest x-ray obtained at the time admission did not reveal any acute cardiopulmonary process. PG Care Time/CCT Total # of Minutes Spent Total Time Spent with Patient: Total time spent is greater than 50% in coordination of care (as documented) at patient's floor/unit and/or counseling patient: Coding Level of Care Code 76836 INT INP/OBS CARE 375MIN Diagnoses Coronary artery disease involving chilkoot coronary artery of chilkoot heart with angina pectoris I25.119 Coronary Disease-Associated Artery/Lesion type: chilkoot artery [place] vs. transplanted heart: chilkoot heart Associated angina: with unspecified angina Cardiomyopathy, unspecified type I42.9 Cardiomyopathy type: unspecified Biventricular cardiac pacemaker in situ Z95.0 Valvular heart disease I38 (1) CAD (coronary artery disease) Coronary Disease-Associated Artery/Lesion type: ch[place]koot artery [place] vs. transplanted heart: chilkoot heart Associated angina: with unspecified angina Qualified Code(s): I25.119 - Atherosclerotic heart disease of chilkoot coronary artery with unspecified angina pectoris (2) Cardiomyopathy Cardiomyopathy type: unspecified Qualified Code(s): I42.9 - Cardiomyopathy, unspecified
[2025-05-27] MEDS ORDERED: PROPOFOL IV EMULSION 10 MG/ML 20 ML VIAL IV ONE (14:26)
[2025-05-27] MEDS ORDERED: LIDOCAINE 2% 2 ML VIAL/AMP(20MG/ML) INFIL ONE (14:26)
[2025-05-27] MEDS ORDERED: ONDANSETRON INJ 2 MG/ML 2 ML VIAL ONE (14:26)
[2025-05-27] MEDS ORDERED: ROCURONIUM BROMIDE 10 MG/ML 5 ML VIAL IV ONE (14:26)
[2025-05-27] MEDS ORDERED: DEXAMETHASONE SOD INJ 4 MG/ML VIAL ONE (14:26)
[2025-05-27] MEDS: LACTATED RINGER'S 1,000 ML IV SCH (14:30)
--- NOTE | 2025-05-27 15:20 | History & Physical Bridge Note ---
Date of Service May 27, 2025 History & Physical Bridge Note I have examined the patient, reviewed the History & Physical and in the interval since the performance of the History & Physical I have noted the following changes of clinical significance: Right knee mild decrease drainage from prepatellar bursa wound but still erythema and induration and inflammation consistent with infected prepatellar bursitis. Still has medial lower leg cellulitis but not as severe. Plan is for incision and drainage of prepatellar bursa and resection of infected prepatellar bursa tissue. If by chance this goes deep which is not expected at this time we would be prepared to do irrigation debridement of the knee joint and polyethylene exchange.
[2025-05-27] MEDS ORDERED: ONDANSETRON INJ 2 MG/ML 2 ML VIAL IV PRN (15:24)
[2025-05-27] MEDS ORDERED: ATROPINE SULFATE 0.1 MG/ML 10ML SYR IV PRN (15:24)
--- NOTE | 2025-05-27 17:01 | Operative Report ---
Post Operative Report Pre & Post Diagnosis Operation Date: 05/27/25 07:50 Pre-Op Diagnosis: Right knee infected prepatellar bursa with cellulitis with ipsilateral total knee replacement Post-Op Diagnosis: Right knee infected prepatellar bursa with skin necrosis infection of skin fat prepatellar bursa with ipsilateral knee replacement felt not to be infected. I identified the patient and participated in the time-out.: Yes Procedure Operation Date: 05/27/25 07:50 Actual Procedures p Right Knee Prepatellar Bursa Incision and Drainage (Right), sharp debridement of skin and subcutaneous fat and prepatellar bursa.- Juanpablo Emanuel MD Surgeon Juanpablo Emanuel MD [employer] Transporter Young HAMLIN Estimated Blood Loss 5 Findings Consistent with Post-Op Diagnosis Specimens Skin and soft tissue and prepatellar bursa for culture and swab for culture. Drains 2 Hemovac Anesthesia Type General Complications none Disposition Disposition: Recovery Room Indications Complex history of 85-year-old male who developed cellulitis in his knee and lower leg treated with 3 days of IV antibiotics ceftriaxone discharge on oral antibiotics, doxycycline and Augmentin and despite being on that he continued to have infection and started draining pus out of his prepatellar bursa. Patient has history of total knee replacement 2017. Clinically his total knee replacement not infected. Swab culture was obtained of the bursa as outpatient. Description of Procedure Patient was taken to the operating room placed under general anesthetic. Right lower extremity exam demonstrated he had no clinical effusion of the knee stable knee replacement and normal range of motion. There was an area of about 15 mm diameter necrotic skin with opening that extended into the prepatellar bursa. This was in the incisional area. There was induration and some fluid in the prepatellar bursa underlying that area. There was cellulitis down the medial side of his calf extending down toward the ankle. A pneumatic tourniquet is right upper thigh and then the right lower extremity was prepped with Betadine scrub and paint. Extremity was draped sterilely. Leg was elevated no Esmarch was used. The pneumatic tourniquet was raised to 300 mmHg. Elliptical incision was made to excise the necrotic skin and then the incision was extended distally and proximally through the old scar. Upon entering the bursa there was necrotic skin underlying the dermis which was significantly thickened and indurated. There was necrotic prepatellar bursa tissue. Careful inspection was performed to raise skin flaps and look for any sign of a sinus tract and there was none identified. Knee was taken through full range of motion and there is no fluid coming out of the knee joint identified and it was felt that there was no communication with the joint. The prepatellar bursa was resected. The wound was noam irrigated with 6 L of pulsatile lavage saline solution. 2 Hemovac drains were placed and connected to the Hemovac and the skin was closed interrupted 4-0 nylon vertical mattress sutures and sterile dressings were applied and a knee immobilizer. The tourniquet was let down and patient had normal return of circulation to extremity and tolerated procedure well. Young HAMLIN participated as my machinist first class. He assisted in retraction and wound closure dressings knee immobilizer application postoperative orders and care. I attest to the content of the Intraoperative Record and any orders documented therein. Any exceptions are noted below.
[2025-05-27] MEDS ORDERED: diphenhydrAMINE Capsule 25 MG CAP PO PRN (18:18)
[2025-05-27] MEDS ORDERED: METOCLOPRAMIDE HCL INJ 5 MG/ML 2 ML VIAL IV PRN (18:18)
[2025-05-27] MEDS ORDERED: ALUMINUM/MAGNESIUM SUSP 30 ML UDC PO PRN (18:18)
[2025-05-27] MEDS ORDERED: MAGNESIUM HYDROXIDE SUSP 30 ML UDC PO PRN (18:18)
[2025-05-27] MEDS ORDERED: NALOXONE HCL 0.4 MG/1 ML VIAL/CARP IV PRN (18:18)
[2025-05-27] MEDS ORDERED: HYDROmorphone INJ 0.5 MG/0.5 ML SYR IV PRN (18:18)
[2025-05-27] MEDS: SODIUM CHLORIDE 0.9% 1,000 ML IV SCH (18:31)
[2025-05-27] MEDS: KETOROLAC TROMETHAMINE 15 MG/ML VIAL IV PRN (18:38)
--- NOTE | 2025-05-27 18:39 | Anesthesiology Progress Note ---
Date of Service May 27, 2025 Anesthesia Post Procedure Vital Signs Vital Signs: Temp Pulse Pulse Pulse Resp BP BP 05/27/25 18:05 66 14 99/57 L 05/27/25 17:55 72 24 97/47 L 05/27/25 17:45 67 15 99/56 L 05/27/25 17:35 73 14 117/51 L 05/27/25 17:25 97.5 F L 63 16 106/57 L 05/27/25 17:15 63 24 120/79 05/27/25 17:05 69 17 105/61 05/27/25 16:55 67 14 113/62 05/27/25 16:47 96.8 F L 69 13 91/61 L 05/27/25 14:30 67 18 99/62 L 05/27/25 14:26 98.4 F 67 20 99/62 L 05/27/25 14:03 67 16 05/27/25 14:01 95/57 L 05/27/25 14:01 95/57 L 05/27/25 13:57 62 17 05/27/25 12:00 77 19 05/27/25 12:00 94/61 L 05/27/25 12:00 94/61 L 05/27/25 11:03 78 20 05/27/25 11:00 122/70 05/27/25 11:00 122/70 05/27/25 10:45 73 17 05/27/25 10:00 73 16 05/27/25 10:00 119/67 05/27/25 10:00 119/67 05/27/25 10:00 119/67 05/27/25 09:03 73 16 05/27/25 09:00 135/74 05/27/25 08:54 69 15 05/27/25 08:09 69 23 05/27/25 08:00 112/70 05/27/25 08:00 112/70 05/27/25 07:39 75 19 05/27/25 07:12 67 16 05/27/25 07:01 116/69 05/27/25 07:01 116/69 05/27/25 06:53 75 05/27/25 06:51 76 18 05/27/25 06:00 62 18 90/65 L 05/27/25 05:45 70 15 05/27/25 05:00 82 14 117/65 05/27/25 04:00 72 20 109/67 05/27/25 03:00 74 17 98/58 L 05/27/25 02:33 71 17 111/85 05/27/25 02:00 70 16 116/62 05/27/25 01:42 74 18 05/27/25 01:30 70 18 100/55 L 05/27/25 01:09 72 14 05/27/25 01:00 71 16 118/70 05/27/25 00:45 66 21 103/61 05/27/25 00:21 72 20 05/27/25 00:00 69 18 99/53 L 05/26/25 23:30 98.1 F 78 16 90/59 L 05/26/25 23:30 78 16 90/59 L 05/26/25 23:28 70 05/26/25 23:00 79 18 99/67 L 05/26/25 22:06 71 20 108/52 L 05/26/25 21:00 78 18 112/79 05/26/25 20:00 67 13 102/59 L 05/26/25 19:51 69 19 88/53 L 05/26/25 19:30 71 16 82/56 L 05/26/25 19:19 77 05/26/25 19:18 77 15 95/59 L Pulse Ox O2 Del Method O2 Flow Rate 05/27/25 18:05 95 Nasal Cannula 3 05/27/25 17:55 98 Nasal Cannula 3 05/27/25 17:45 99 Nasal Cannula 3 05/27/25 17:35 90 Nasal Cannula 3 05/27/25 17:25 92 Nasal Cannula 3 05/27/25 17:15 93 Nasal Cannula 3 05/27/25 17:05 84 L Oxymask 5 05/27/25 16:55 92 Oxymask 5 05/27/25 16:47 97 Oxymask 5 05/27/25 14:30 94 Room Air 05/27/25 14:26 94 Room Air 05/27/25 14:03 91 05/27/25 14:01 05/27/25 14:01 05/27/25 13:57 94 05/27/25 12:00 95 05/27/25 12:00 05/27/25 12:00 05/27/25 11:03 97 05/27/25 11:00 05/27/25 11:00 05/27/25 10:45 95 05/27/25 10:00 94 05/27/25 10:00 05/27/25 10:00 05/27/25 10:00 05/27/25 09:03 95 05/27/25 09:00 05/27/25 08:54 96 05/27/25 08:09 95 05/27/25 08:00 05/27/25 08:00 05/27/25 07:39 94 05/27/25 07:12 91 05/27/25 07:01 05/27/25 07:01 05/27/25 06:53 05/27/25 06:51 87 L 05/27/25 06:00 95 Room Air 05/27/25 05:45 94 Room Air 05/27/25 05:00 94 Room Air 05/27/25 04:00 95 Room Air 05/27/25 03:00 91 Room Air 05/27/25 02:33 95 Room Air 05/27/25 02:00 95 Room Air 05/27/25 01:42 95 Room Air 05/27/25 01:30 95 Room Air 05/27/25 01:09 99 Room Air 05/27/25 01:00 97 Room Air 05/27/25 00:45 96 Room Air 05/27/25 00:21 96 Room Air 05/27/25 00:00 93 Room Air 05/26/25 23:30 95 Room Air 05/26/25 23:30 95 Room Air 05/26/25 23:28 05/26/25 23:00 96 Room Air 05/26/25 22:06 96 Room Air 05/26/25 21:00 93 05/26/25 20:00 97 Room Air 05/26/25 19:51 95 Room Air 05/26/25 19:30 95 05/26/25 19:19 05/26/25 19:18 95 Pain Intensity Right Knee: Pain Intensity: 4 Transfer of Care Handoff Completed per policy Notes Mental Status: alert / awake / arousable and participated in evaluation Patient Amnestic to Procedure: Yes Nausea / Vomiting: adequately controlled Pain: adequately controlled Airway Patency, RR, SpO2: stable & adequate BP & HR: stable & adequate Hydration State: stable & adequate Anesthetic Complications: no major complications apparent and Pt Satisfied with anesthetic care
[2025-05-27] MEDS: DOCUSATE SODIUM 100 MG CAP PO SCH (20:14)
[2025-05-27] MEDS: EZETIMIBE 10 MG TAB PO SCH (20:15)
[2025-05-27] MEDS: DONEPEZIL HCL 10 MG TAB PO SCH (20:15)
[2025-05-27] MEDS: SENNA 8.6 MG TAB PO SCH (20:16)
[2025-05-27] MEDS: SIMVASTATIN 40 MG TAB PO SCH (20:16)
--- NOTE | 2025-05-27 20:47 | Hospitalist Progress Note ---
Date of Service May 27, 2025 Assessment & Plan (1) Cellulitis of right leg: (2) CAD (coronary artery disease): (3) EILEEN on CPAP: (4) Essential hypertension: (5) COPD (chronic obstructive pulmonary disease): (6) GERD (gastroesophageal reflux disease): (7) Dementia: (8) Prepatellar bursitis of right knee: Plan 85-year-old male with history of coronary artery disease status post stent, status post three-vessel CABG in 2012, pacemaker in place, ischemic cardiomyopathy/heart failure with reduced EF (last echo in 2022 with EF of 50 to 55%, significant inferior and inferolateral hypokinesis) presenting with worsening warmth, redness and swelling of right lower extremity. 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 Some concern about possible joint infection. Patient is planning to go to the operating room tomorrow with Dr. Gruber for a washout of the lesion, possible exchange of hardware should the infection spread to the prosthesis. #Cellulitis and prepatellar infected bursitis patient is afebrile, hemodynamically stable, no leukocytosis Elevated ESR = 65. Normal CRP and negative procalcitonin. Per comparison of photos of the right knee supplied by patient's , the redness/swelling/edema actually appears to be improving. Wound culture was obtained earlier today and shows few white blood cells and no organisms. Do not strongly feel that this represents a deeper infection. Continue IV Vancomycin s/p Right Knee Prepatellar Bursa Incision and Drainage #Coronary artery disease / Cardiomyopathy Appreciate cardiology consult Continue metoprolol 50 mg p.o. daily Continue simvastatin 40 mg p.o. nightly and Zetia 10 mg daily Continue isosorbide mononitrate 120 mg p.o. every morning Will hold aspirin for now Will hold Entresto due to increased risk of perioperative hypotension and renal dysfunction Will hold patient's Lasix #COPDpatient does not use oxygen or inhalers Monitor respiratory status closely postoperatively #Essential hypertensionblood pressure is acceptable at present Continue metoprolol, isosorbide Holding Entresto and Lasix preoperatively Continue to monitor #GERD Continue Protonix #Dementia without behavioral disturbances/mental health Continue Aricept 10 mg p.o. nightly Continue Namenda 10 mg p.o. twice daily Continue Zoloft 100 mg p.o. every morning Frequent orientation Delirium prevention strategies #EILEEN on CPAP Continue CPAP VTE Prophylaxis - per orthopedics planning on starting Eliquis tomorrow Disposition - admit med/surg Admission and Anticipated Discharge Date Admission Date: May 26, 2025 Subjective Seen post operatively. Doing well. Unable to get much history from patient due to dementia but denies any chest pain or shortness of breath. Physical Exam Respiratory: normal respiratory effort, lungs clear to auscultation Cardiovascular: RRR, no murmur, no edema Vessels: posterior tibial pulses present (right) and dorsalis pedis pulses present (right) Results & Data Results & Data Vital Signs (Past 12 Hours) Vital Signs Temp Pulse Pulse Pulse Resp BP BP 05/27/25 20:18 36.4 C L 78 16 100/56 L 05/27/25 19:18 36.5 C 73 18 100/47 L 05/27/25 18:48 36.7 C 62 18 105/60 05/27/25 18:18 36.7 C 62 18 99/57 L 05/27/25 18:05 66 14 99/57 L 05/27/25 17:55 72 24 97/47 L 05/27/25 17:45 67 15 99/56 L 05/27/25 17:35 73 14 117/51 L 05/27/25 17:25 36.4 C L 63 16 106/57 L 05/27/25 17:15 63 24 120/79 05/27/25 17:05 69 17 105/61 05/27/25 16:55 67 14 113/62 05/27/25 16:47 36 C L 69 13 91/61 L 05/27/25 14:30 67 18 99/62 L 05/27/25 14:26 36.9 C 67 20 99/62 L 05/27/25 14:03 67 16 05/27/25 14:01 95/57 L 05/27/25 14:01 95/57 L 05/27/25 13:57 62 17 05/27/25 12:00 77 19 05/27/25 12:00 94/61 L 05/27/25 12:00 94/61 L 05/27/25 11:03 78 20 05/27/25 11:00 122/70 05/27/25 11:00 122/70 05/27/25 10:45 73 17 05/27/25 10:00 73 16 05/27/25 10:00 119/67 05/27/25 10:00 119/67 05/27/25 10:00 119/67 05/27/25 09:03 73 16 05/27/25 09:00 135/74 05/27/25 08:54 69 15 Pulse Ox O2 Del Method O2 Flow Rate 05/27/25 20:18 100 Nasal Cannula 3 05/27/25 19:18 98 Nasal Cannula 3 05/27/25 18:48 98 Nasal Cannula 3 05/27/25 18:18 95 Nasal Cannula 3 05/27/25 18:05 95 Nasal Cannula 3 05/27/25 17:55 98 Nasal Cannula 3 05/27/25 17:45 99 Nasal Cannula 3 05/27/25 17:35 90 Nasal Cannula 3 05/27/25 17:25 92 Nasal Cannula 3 05/27/25 17:15 93 Nasal Cannula 3 05/27/25 17:05 84 L Oxymask 5 05/27/25 16:55 92 Oxymask 5 05/27/25 16:47 97 Oxymask 5 05/27/25 14:30 94 Room Air 05/27/25 14:26 94 Room Air 05/27/25 14:03 91 05/27/25 14:01 05/27/25 14:01 05/27/25 13:57 94 05/27/25 12:00 95 05/27/25 12:00 05/27/25 12:00 05/27/25 11:03 97 05/27/25 11:00 05/27/25 11:00 05/27/25 10:45 95 05/27/25 10:00 94 05/27/25 10:00 05/27/25 10:00 05/27/25 10:00 05/27/25 09:03 95 05/27/25 09:00 05/27/25 08:54 96 PG Care Time/CCT Total # of Minutes Spent Total Time Spent with Patient: Total time spent is greater than 50% in coordination of care (as documented) at patient's floor/unit and/or counseling patient: Coding Level of Care Code 76768 SUB INP/OBS CARE 2/35MIN Diagnoses Cellulitis of right leg L03.115 Coronary artery disease involving [place] coronary artery of [place] heart with angina pectoris I25.119 Coronary Disease-Associated Artery/Lesion type: [place] artery [place] vs. transplanted heart: [place] heart Associated angina: with unspecified angina EILEEN on CPAP G47.33; Z99.89 Essential hypertension I10 Chronic obstructive pulmonary disease, unspecified COPD type J44.9 COPD type: unspecified COPD Gastroesophageal reflux disease, esophagitis presence not specified K21.9 Esophagitis presence: esophagitis presence not specified Dementia F03.90 Prepatellar bursitis of right knee M70.41 (2) CAD (coronary artery disease) Coronary Disease-Associated Artery/Lesion type: [place] artery [place] vs. transplanted heart: [place] heart Associated angina: with unspecified angina Qualified Code(s): I25.119 - Atherosclerotic heart disease of [place] coronary artery with unspecified angina pectoris (5) COPD (chronic obstructive pulmonary disease) COPD type: unspecified COPD Qualified Code(s): J44.9 - Chronic obstructive pulmonary disease, unspecified (6) GERD (gastroesophageal reflux disease) Esophagitis presence: esophagitis presence not specified Qualified Code(s): K21.9 - Gastro-esophageal reflux disease without esophagitis
[2025-05-27] MEDS ORDERED: EZETIMIBE/SIMVASTATIN 10/40MG TAB PO SCH (21:00)
[2025-05-27] MEDS ORDERED: cefTRIAXone SODIUM 2,000 MG/50 ML BAG IV SCH (22:00)
--- NOTE | 2025-05-28 06:14 | Orthopedic Progress Note ---
Date of Service May 28, 2025 Assessment & Plan (1) Prepatellar bursitis of right knee: Plan: POD #1 s/p Right Knee Prepatellar Bursa Incision and Drainage (Right), sharp debridement of skin and subcutaneous fat and prepatellar bursa ID Consulted, currently on Vanco, awaiting intra-op cultures. DVT with MY/SCD/Eliquis will remain in immobilizer, can loosen in bed if uncomfortable, otherwise on for ambulation no significant drainge in hemovac, will likely d/c tomorrow am Admission and Anticipated Discharge Date Admission Date: May 26, 2025 Subjective POD #1 s/p Right Knee Prepatellar Bursa Incision and Drainage (Right), sharp debridement of skin and subcutaneous fat and prepatellar bursa Review of Systems Constitutional: no fever and no chills Respiratory: no cough and no dyspnea Cardiovascular: no chest pain, no dyspnea and no orthopnea Gastrointestinal: no abdominal pain, no nausea and no vomiting Physical Exam Physical Exam: Vital Signs Temp Pulse Pulse Pulse Resp BP BP 05/28/25 04:03 36.5 C 70 16 108/60 05/28/25 03:00 36.6 C 70 18 93/53 L 05/27/25 23:10 36.8 C 73 18 100/55 L 05/27/25 21:20 36.4 C L 81 18 96/51 L 05/27/25 20:18 36.4 C L 78 16 100/56 L 05/27/25 19:45 05/27/25 19:18 36.5 C 73 18 100/47 L 05/27/25 18:48 36.7 C 62 18 105/60 05/27/25 18:18 36.7 C 62 18 99/57 L 05/27/25 18:05 66 14 99/57 L 05/27/25 17:55 72 24 97/47 L 05/27/25 17:45 67 15 99/56 L 05/27/25 17:35 73 14 117/51 L 05/27/25 17:25 36.4 C L 63 16 106/57 L 05/27/25 17:15 63 24 120/79 05/27/25 17:05 69 17 105/61 05/27/25 16:55 67 14 113/62 05/27/25 16:47 36 C L 69 13 91/61 L 05/27/25 14:30 67 18 99/62 L 05/27/25 14:26 36.9 C 67 20 99/62 L 05/27/25 14:03 67 16 05/27/25 14:01 95/57 L 05/27/25 14:01 95/57 L 05/27/25 13:57 62 17 05/27/25 12:00 77 19 05/27/25 12:00 94/61 L 05/27/25 12:00 94/61 L 05/27/25 11:03 78 20 05/27/25 11:00 122/70 05/27/25 11:00 122/70 05/27/25 10:45 73 17 05/27/25 10:00 73 16 05/27/25 10:00 119/67 05/27/25 10:00 119/67 05/27/25 10:00 119/67 05/27/25 09:03 73 16 05/27/25 09:00 135/74 05/27/25 08:54 69 15 05/27/25 08:09 69 23 05/27/25 08:00 112/70 05/27/25 08:00 112/70 05/27/25 07:39 75 19 05/27/25 07:12 67 16 05/27/25 07:01 116/69 05/27/25 07:01 116/69 05/27/25 06:53 75 05/27/25 06:51 76 18 Pulse Ox O2 Del Method O2 Flow Rate 05/28/25 04:03 92 Nasal Cannula 3 05/28/25 03:00 92 Nasal Cannula 3 05/27/25 23:10 96 Nasal Cannula 3 05/27/25 21:20 98 Nasal Cannula 3 05/27/25 20:18 100 Nasal Cannula 3 05/27/25 19:45 Nasal Cannula 3 05/27/25 19:18 98 Nasal Cannula 3 05/27/25 18:48 98 Nasal Cannula 3 05/27/25 18:18 95 Nasal Cannula 3 05/27/25 18:05 95 Nasal Cannula 3 05/27/25 17:55 98 Nasal Cannula 3 05/27/25 17:45 99 Nasal Cannula 3 05/27/25 17:35 90 Nasal Cannula 3 05/27/25 17:25 92 Nasal Cannula 3 05/27/25 17:15 93 Nasal Cannula 3 05/27/25 17:05 84 L Oxymask 5 05/27/25 16:55 92 Oxymask 5 05/27/25 16:47 97 Oxymask 5 05/27/25 14:30 94 Room Air 05/27/25 14:26 94 Room Air 05/27/25 14:03 91 05/27/25 14:01 05/27/25 14:01 05/27/25 13:57 94 05/27/25 12:00 95 05/27/25 12:00 05/27/25 12:00 05/27/25 11:03 97 05/27/25 11:00 05/27/25 11:00 05/27/25 10:45 95 05/27/25 10:00 94 05/27/25 10:00 05/27/25 10:00 05/27/25 10:00 05/27/25 09:03 95 05/27/25 09:00 05/27/25 08:54 96 05/27/25 08:09 95 05/27/25 08:00 05/27/25 08:00 05/27/25 07:39 94 05/27/25 07:12 91 05/27/25 07:01 05/27/25 07:01 05/27/25 06:53 05/27/25 06:51 87 L Intake and Output 05/27/25 05/27/25 05/28/25 14:59 22:59 06:59 Intake Total 510 / 2865 1400 / 2865 955 / 2865 Output Total 200 / 206 Balance 510 / 2659 1394 / 2659 755 / 2659 Intake: IV 510 / 2465 1000 / 2465 955 / 2465 Lactated Ringe r's 1,000 ml @ 15 1000 / 1000 mls/hr IV .Q24 H [facility] Rx#: [id number] Sodium Chlorid e 0.9% 1,000 ml @ 955 / 955 100 mls/hr IV .Q10H [facility] Rx#: [id number] Vancomycin HCl 1,500 mg In 510 / 510 Sodium Chlorid e 0.9% 500 ml @ 200 mls/hr IV Q24H [facility] Rx#: [id number] IV Perioperative 400 / 400 Output: Estimated Blood Loss 5 / 5 Urine Amount ([place]) 200 / 200 External 200 / 200 Drain Output 0 / 0 Right Knee Hem ovac 0 / 0 # Bowel Movement s / Other: # Unmeasured Voi ds 1 Weight 96 kg Patient Weight 05/28/25 06:59 Weight 96 kg Musculoskeletal: Right knee: NVDI, calf SNT, negative carlos sign. DP palpable, able to wiggle toes/ankle movement without difficulty. Results & Data Vital Signs (Past 12 Hours) Vital Signs Temp Pulse Resp BP Pulse Ox O2 Del Method O2 Flow Rate 05/28/25 04:03 36.5 C 70 16 108/60 92 Nasal Cannula 3 05/28/25 03:00 36.6 C 70 18 93/53 L 92 Nasal Cannula 3 05/27/25 23:10 36.8 C 73 18 100/55 L 96 Nasal Cannula 3 05/27/25 21:20 36.4 C L 81 18 96/51 L 98 Nasal Cannula 3 05/27/25 20:18 36.4 C L 78 16 100/56 L 100 Nasal Cannula 3 05/27/25 19:45 Nasal Cannula 3 05/27/25 19:18 36.5 C 73 18 100/47 L 98 Nasal Cannula 3 05/27/25 18:48 36.7 C 62 18 105/60 98 Nasal Cannula 3 05/27/25 18:18 36.7 C 62 18 99/57 L 95 Nasal Cannula 3 Laboratory Results Laboratory Results WBC 6.28 K/ul (4.8-10.8) 05/27/25 04:40 RBC 3.77 M/uL (4.70-6.10) L 05/27/25 04:40 Hgb 10.1 g/dl (14.0-18.0) L 05/27/25 04:40 Hct 31.0 % (42.0-52.0) L 05/27/25 04:40 MCV 82.2 fL (80.0-100.0) 05/27/25 04:40 MCH 26.8 pg (25.0-34.0) 05/27/25 04:40 MCHC 32.6 g/dL (32.0-36.0) 05/27/25 04:40 RDW Std Deviation 40.9 fL (36.4-46.3) 05/27/25 04:40 RDW Coeff of Ricky 13.5 % (11.5-14.5) 05/27/25 04:40 Plt Count 161 K/uL (130-400) 05/27/25 04:40 MPV 10.1 fL (9.4-12.4) 05/27/25 04:40 Immature Gran % (Auto) 1.5 % 05/26/25 18:55 Neut % (Auto) 75.3 % 05/26/25 18:55 Lymph % (Auto) 12.4 % 05/26/25 18:55 [place] % (Auto) 7.4 % 05/26/25 18:55 Eos % (Auto) 2.9 % 05/26/25 18:55 Baso % (Auto) 0.5 % 05/26/25 18:55 Neut # (Auto) 6.49 K/uL (1.40-6.50) 05/26/25 18:55 Lymph # (Auto) 1.07 K/uL (1.20-3.40) L 05/26/25 18:55 [place] # (Auto) 0.64 K/uL (0.11-0.59) H 05/26/25 18:55 Eos # (Auto) 0.25 K/uL (0.00-0.50) 05/26/25 18:55 Baso # (Auto) 0.04 K/uL (0.00-0.20) 05/26/25 18:55 Immature Gran # (Auto) 0.13 K/uL (0.01-0.20) 05/26/25 18:55 ESR 65 mm/hr (0-20) H 05/26/25 19:25 PT 11.7 Seconds (9.0-12.0) 05/26/25 18:55 INR 1.1 (0.9-1.1) 05/26/25 18:55 APTT 28 Seconds (21-31) 05/26/25 18:55 PTT Ratio 1.0 05/26/25 18:55 Sodium 137 mmol/L (136-145) 05/27/25 04:40 Potassium 3.8 mmol/L (3.5-5.1) 05/27/25 04:40 Chloride 103 mmol/L (98-107) 05/27/25 04:40 Carbon Dioxide 27 mmol/L (21-32) 05/27/25 04:40 Anion Gap 7 (3-11) 05/27/25 04:40 BUN 20 mg/dl (6-23) 05/27/25 04:40 Creatinine 1.05 mg/dl (0.6-1.4) 05/27/25 04:40 Est Cr Clr Drug Dosing 64.1 ml/min 05/27/25 04:40 eGFR 70.43 05/27/25 04:40 BUN/Creatinine Ratio 19.0 (10-20) 05/27/25 04:40 Glucose 101 mg/dl (70-99(Fasting)) H 05/27/25 04:40 Lactate 1.6 mmol/L (0.4-2.0) 05/26/25 18:55 Calcium 8.8 mg/dl (8.6-10.3) 05/27/25 04:40 Magnesium 1.7 mg/dl (1.7-2.4) 05/26/25 18:55 Total Bilirubin 0.4 mg/dl (0.2-1.0) 05/26/25 18:55 Direct Bilirubin 0.1 mg/dl (0-0.2) 05/26/25 18:55 AST 14 U/L (13-39) 05/26/25 18:55 ALT 11 U/L (7-52) 05/26/25 18:55 Alkaline Phosphatase 64 U/L (34-104) 05/26/25 18:55 Troponin I High Sens 7.7 pg/ml (0-20) 05/26/25 18:55 C-Reactive Protein < 0.50 mg/dl (0-0.5) 05/26/25 18:55 B-Natriuretic Peptide 187 pg/ml (0-100) H 05/27/25 04:40 Total Protein 7.8 gm/dl (6.0-8.3) 05/26/25 18:55 Albumin 4.0 gm/dl (3.4-5.0) 05/26/25 18:55 Procalcitonin 0.03 ng/ml (0-0.5) 05/26/25 18:55 Urine Color Yellow 05/26/25 23:24 Urine Appearance Clear (Clear) 05/26/25 23:24 Urine pH 5.5 (4.5-7.5) 05/26/25 23:24 Ur Specific [place] 1.019 (1.000-1.030) 05/26/25 23:24 Urine Protein Trace (Negative) H 05/26/25 23:24 Urine Glucose (UA) Negative (Negative) 05/26/25 23:24 Urine Ketones Negative (Negative) 05/26/25 23:24 Urine Blood 3+ (Negative) H 05/26/25 23:24 Urine Nitrite Negative (Negative) 05/26/25 23:24 Urine Bilirubin Negative (Negative) 05/26/25 23:24 Urine Urobilinogen Negative (Negative) 05/26/25 23:24 Ur Leukocyte Esterase Negative (Negative) 05/26/25 23:24 Urine WBC (Auto) 0-5 /hpf (0-5) 05/26/25 23:24 Urine RBC (Auto) >20 /hpf (0-2) H 05/26/25 23:24 U Hyaline Cast (Auto) 0-2 /lpf (0-2) 05/26/25 23:24 U Epithel Cells (Auto) 0-2 /hpf (0-2) 05/26/25 23:24 Urine Bacteria (Auto) None Seen (None Seen) 05/26/25 23:24 Calcium Oxalate Crystal Present (None Prsent) A 05/26/25 23:24 Urine Comment 05/26/25 23:24 Nasal Screen MRSA (PCR) Positive (Negative) A 05/26/25 18:55 Stl C. diff Tox B Gene Negative Cdiff Gene (Neg) 05/26/25 23:40 Stl C. diff [id number]-NAP1-BI NEGATIVE 05/26/25 23:40 Adenovirus (PCR) Not Detected (NotDetected) 05/26/25 18:55 B. pertussis DNA (PCR) Not Detected (NotDetected) 05/26/25 18:55 B.parapertussis DNA PCR Not Detected (NotDetected) 05/26/25 18:55 C. pneumoniae DNA (PCR) Not Detected (NotDetected) 05/26/25 18:55 Coronavirus OC43 (PCR) Not Detected (NotDetected) 05/26/25 18:55 Coronavirus HKU1 (PCR) Not Detected (NotDetected) 05/26/25 18:55 Coronavirus 229E (PCR) Not Detected (NotDetected) 05/26/25 18:55 SARS-CoV-2 (PCR) Not Detected (NotDetected) 05/26/25 18:55 Coronavirus NL63 (PCR) Not Detected (NotDetected) 05/26/25 18:55 Human Metapneumovir PCR Not Detected (NotDetected) 05/26/25 18:55 Influenza Type A (PCR) Not Detected (NotDetected) 05/26/25 18:55 Influenza Type B (PCR) Not Detected (NotDetected) 05/26/25 18:55 M. pneumoniae (PCR) Not Detected (NotDetected) 05/26/25 18:55 Parainfluenza 1 (PCR) Not Detected (NotDetected) 05/26/25 18:55 Parainfluenza 2 (PCR) Not Detected (NotDetected) 05/26/25 18:55 Parainfluenza 3 (PCR) Not Detected (NotDetected) 05/26/25 18:55 Parainfluenza 4 (PCR) Not Detected (NotDetected) 05/26/25 18:55 RSV (PCR) Not Detected (NotDetected) 05/26/25 18:55 Entero/Rhino (PCR) Not Detected (NotDetected) 05/26/25 18:55 Impressions Chest X-Ray 05/26/25 18:34 EXAM: X-ray chest one-view portable CLINICAL HISTORY: Sepsis PRIORS: 05/16/2025, 04/07/2023 TECHNIQUE: Upright portable AP FINDINGS: Patient is significantly rotated. A left-sided cardiac device noted with multiple leads present and median sternotomy wires, unchanged. No confluent airspace consolidation airspace consolidation. No pleural effusion. Heart size is unchanged. No pneumothorax. Trachea is patent. Osseous structures demonstrate no acute abnormality. No radiopaque foreign body. IMPRESSION: No plain film evidence of an acute cardiopulmonary process with unchanged appearance of the chest. Electronically signed by Jyoti Huston 05-26-2025 7:20 PM Diagnostic Findings Microbiology 05/26/25 19:25 Blood Aerobic Blood Culture - Preliminary No growth in Aerobic bottle after 24 hours. 05/26/25 19:25 Blood Anaerobic Blood Culture - Preliminary No growth in Anaerobic bottle after 24 hours. 05/26/25 18:55 Blood Aerobic Blood Culture - Preliminary No growth in Aerobic bottle after 24 hours. 05/26/25 18:55 Blood Anaerobic Blood Culture - Preliminary No growth in Anaerobic bottle after 24 hours.
[2025-05-28 07:17] LABS: Hematocrit (blood only) 29.7 % (42.0-52.0); Hemoglobin 9.2 g/dl (14.0-18.0); Mean Corpuscular Hemoglobin 25.6 pg (25.0-34.0); Mean Corpuscular Volume 82.7 fL (80.0-100.0); Platelet Count 162 K/uL (130-400); RDW Standard Deviation 41.0 fL (36.4-46.3); Red Blood Count 3.59 M/uL (4.70-6.10); White Blood Count 7.86 K/ul (4.8-10.8)
[2025-05-28 07:43] LABS: Anion Gap 6.0 (3-11); Blood Urea Nitrogen 18.0 mg/dl (6-23); Calcium 8.6 mg/dl (8.6-10.3); Carbon Dioxide 26.0 mmol/L (21-32); Chloride 106.0 mmol/L (98-107); Creatinine Clr Calc Pharmacy 67.9 ml/min; Glucose 111.0 mg/dl (70-99(Fasting)); Potassium 4.1 mmol/L (3.5-5.1); Sodium 138.0 mmol/L (136-145)
[2025-05-28] MEDS: ADVANCED PROBIOTIC 625 MG CAPSULE PO SCH (08:35)
[2025-05-28] MEDS: MULTIVITAMIN TAB PO SCH (08:37)
--- NOTE | 2025-05-28 12:15 | Hospitalist Progress Note ---
Date of Service May 28, 2025 Assessment & Plan (1) Cellulitis of right leg: (2) CAD (coronary artery disease): (3) EILEEN on CPAP: (4) Essential hypertension: (5) COPD (chronic obstructive pulmonary disease): (6) GERD (gastroesophageal reflux disease): (7) Dementia: (8) Prepatellar bursitis of right knee: Plan 85-year-old male with history of coronary artery disease status post stent, status post three-vessel CABG in 2012, pacemaker in place, ischemic cardiomyopathy/heart failure with reduced EF (last echo in 2022 with EF of 50 to 55%, significant inferior and inferolateral hypokinesis) presenting with worsening warmth, redness and swelling of right lower extremity. 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 Some concern about possible joint infection. Patient is planning to go to the operating room tomorrow with Dr. Gruber for a washout of the lesion, possible exchange of hardware should the infection spread to the prosthesis. #Cellulitis and prepatellar infected bursitis s/p Right Knee Prepatellar Bursa Incision and Drainage 05/[address] Emanuel Continue IV Vancomycin, MRSA on ER wound culture, pending surgical cultures, ID consulted by orthopedic team but potentially can be switched to linezolid on discharge as a PO option #Coronary artery disease / Cardiomyopathy Appreciate cardiology consult Continue metoprolol 50 mg p.o. daily Continue simvastatin 40 mg p.o. nightly and Zetia 10 mg daily Continue isosorbide mononitrate 120 mg p.o. every morning Will hold aspirin for now Will hold Entresto due to increased risk of perioperative hypotension and renal dysfunction Will hold patient's Lasix #COPDpatient does not use oxygen or inhalers Monitor respiratory status closely postoperatively #Essential hypertensionblood pressure is acceptable at present Continue metoprolol, isosorbide Holding Entresto and Lasix preoperatively Continue to monitor #GERD Continue Protonix #Dementia without behavioral disturbances/mental health Continue Aricept 10 mg p.o. nightly Continue Namenda 10 mg p.o. twice daily Continue Zoloft 100 mg p.o. every morning Frequent orientation Delirium prevention strategies #EILEEN on CPAP Continue CPAP VTE Prophylaxis - per orthopedics planning on starting Eliquis tomorrow Disposition - admit med/surg Admission and Anticipated Discharge Date Admission Date: May 26, 2025 Subjective No concerns or questions from the patient. No chest pain or shortness of breath. Difficulty following commands due to his underlying dementia. Physical Exam Respiratory: normal respiratory effort, lungs clear to auscultation Cardiovascular: RRR, no murmur, no edema Results & Data Results & Data Vital Signs (Past 12 Hours) Vital Signs Temp Pulse Resp BP Pulse Ox O2 Del Method O2 Flow Rate 05/28/25 11:59 36.6 C 75 18 101/57 L 93 Room Air 05/28/25 09:05 Room Air 05/28/25 08:36 80 121/68 05/28/25 07:35 36.8 C 70 18 104/65 98 Room Air 05/28/25 04:03 36.5 C 70 16 108/60 92 Nasal Cannula 3 05/28/25 03:00 36.6 C 70 18 93/53 L 92 Nasal Cannula 3 PG Care Time/CCT Total # of Minutes Spent Total Time Spent with Patient: Total time spent is greater than 50% in coordination of care (as documented) at patient's floor/unit and/or counseling patient: Coding Level of Care Code 00002 SUB INP/OBS CARE 2/35MIN Diagnoses Cellulitis of right leg L03.115 Coronary artery disease involving [place] coronary artery of [place] heart with angina pectoris I25.119 Associated angina: with unspecified angina Coronary Disease-Associated Artery/Lesion type: [place] artery [place] vs. transplanted heart: [place] heart EILEEN on CPAP G47.33; Z99.89 Essential hypertension I10 Chronic obstructive pulmonary disease, unspecified COPD type J44.9 COPD type: unspecified COPD Gastroesophageal reflux disease, esophagitis presence not specified K21.9 Esophagitis presence: esophagitis presence not specified Dementia F03.90 Prepatellar bursitis of right knee M70.41 (2) CAD (coronary artery disease) Associated angina: with unspecified angina Coronary Disease-Associated Artery/Lesion type: [place] artery [place] vs. transplanted heart: [place] heart Qualified Code(s): I25.119 - Atherosclerotic heart disease of [place] coronary artery with unspecified angina pectoris (5) COPD (chronic obstructive pulmonary disease) COPD type: unspecified COPD Qualified Code(s): J44.9 - Chronic obstructive pulmonary disease, unspecified (6) GERD (gastroesophageal reflux disease) Esophagitis presence: esophagitis presence not specified Qualified Code(s): K21.9 - Gastro-esophageal reflux disease without esophagitis
[2025-05-28] MEDS: APIXABAN 2.5 MG TAB PO SCH (20:11)
--- NOTE | 2025-05-29 06:01 | Orthopedic Progress Note ---
Date of Service May 29, 2025 Assessment & Plan (1) Prepatellar bursitis of right knee: Plan: POD #2 s/p Right Knee Prepatellar Bursa Incision and Drainage (Right), sharp debridement of skin and subcutaneous fat and prepatellar bursa ID Consulted, currently on Vanco. Cultures showing MRSA. DVT with MY/SCD/Eliquis will remain in immobilizer, can loosen in bed if uncomfortable, otherwise on for ambulation. dressing change today and will d/c hemovac tomorrow am. discussed with Dr Emanuel, he would like to leave drain in until Friday morning, 10mL drainage thus far. Admission and Anticipated Discharge Date Admission Date: May 26, 2025 Subjective POD #2 s/p Right Knee Prepatellar Bursa Incision and Drainage (Right), sharp debridement of skin and subcutaneous fat and prepatellar bursa Review of Systems Constitutional: no fever and no chills Respiratory: no cough and no dyspnea Cardiovascular: no chest pain, no dyspnea and no orthopnea Gastrointestinal: no abdominal pain, no nausea and no vomiting Physical Exam Physical Exam: Vital Signs Temp Pulse Resp BP Pulse Ox O2 Del Method 05/29/25 00:09 36.9 C 88 18 100/59 L 90 Room Air 05/28/25 19:15 Room Air 05/28/25 15:53 36.7 C 72 18 105/56 L 93 Room Air 05/28/25 11:59 36.6 C 75 18 101/57 L 93 Room Air 05/28/25 09:05 Room Air 05/28/25 08:36 80 121/68 05/28/25 07:35 36.8 C 70 18 104/65 98 Room Air Intake and Output 05/28/25 05/28/25 05/29/25 14:59 22:59 06:59 Intake Total 530 / 530 Output Total Balance 528 / 518 - Intake: IV 530 / 530 Vancomycin HCl 1,500 mg In 530 / 530 Sodium Chlorid e 0.9% 500 ml @ 200 mls/hr IV Q24H [facility] Rx#: [id number] Output: Urine Drain Output Right Knee Hem ovac # Bowel Movement s Other: # Unmeasured Voi ds 1 Musculoskeletal: Right knee: NVDI, calf SNT, negative carlos sign. DP palpable, able to wiggle toes/ankle movement without difficulty. Results & Data Vital Signs (Past 12 Hours) Vital Signs Temp Pulse Resp BP Pulse Ox O2 Del Method 05/29/25 00:09 36.9 C 88 18 100/59 L 90 Room Air 05/28/25 19:15 Room Air Laboratory Results Laboratory Results WBC 7.86 K/ul (4.8-10.8) 05/28/25 06:49 RBC 3.59 M/uL (4.70-6.10) L 05/28/25 06:49 Hgb 9.2 g/dl (14.0-18.0) L 05/28/25 06:49 Hct 29.7 % (42.0-52.0) L 05/28/25 06:49 MCV 82.7 fL (80.0-100.0) 05/28/25 06:49 MCH 25.6 pg (25.0-34.0) 05/28/25 06:49 MCHC 31.0 g/dL (32.0-36.0) L 05/28/25 06:49 RDW Std Deviation 41.0 fL (36.4-46.3) 05/28/25 06:49 RDW Coeff of Ricky 13.4 % (11.5-14.5) 05/28/25 06:49 Plt Count 162 K/uL (130-400) 05/28/25 06:49 MPV 10.4 fL (9.4-12.4) 05/28/25 06:49 Immature Gran % (Auto) 1.5 % 05/26/25 18:55 Neut % (Auto) 75.3 % 05/26/25 18:55 Lymph % (Auto) 12.4 % 05/26/25 18:55 [place] % (Auto) 7.4 % 05/26/25 18:55 Eos % (Auto) 2.9 % 05/26/25 18:55 Baso % (Auto) 0.5 % 05/26/25 18:55 Neut # (Auto) 6.49 K/uL (1.40-6.50) 05/26/25 18:55 Lymph # (Auto) 1.07 K/uL (1.20-3.40) L 05/26/25 18:55 [place] # (Auto) 0.64 K/uL (0.11-0.59) H 05/26/25 18:55 Eos # (Auto) 0.25 K/uL (0.00-0.50) 05/26/25 18:55 Baso # (Auto) 0.04 K/uL (0.00-0.20) 05/26/25 18:55 Immature Gran # (Auto) 0.13 K/uL (0.01-0.20) 05/26/25 18:55 ESR 65 mm/hr (0-20) H 05/26/25 19:25 PT 11.7 Seconds (9.0-12.0) 05/26/25 18:55 INR 1.1 (0.9-1.1) 05/26/25 18:55 APTT 28 Seconds (21-31) 05/26/25 18:55 PTT Ratio 1.0 05/26/25 18:55 Sodium 138 mmol/L (136-145) 05/28/25 06:49 Potassium 4.1 mmol/L (3.5-5.1) 05/28/25 06:49 Chloride 106 mmol/L (98-107) 05/28/25 06:49 Carbon Dioxide 26 mmol/L (21-32) 05/28/25 06:49 Anion Gap 6 (3-11) 05/28/25 06:49 BUN 18 mg/dl (6-23) 05/28/25 06:49 Creatinine 0.99 mg/dl (0.6-1.4) 05/28/25 06:49 Est Cr Clr Drug Dosing 67.9 ml/min 05/28/25 06:49 eGFR 75.58 05/28/25 06:49 BUN/Creatinine Ratio 18.2 (10-20) 05/28/25 06:49 Glucose 111 mg/dl (70-99(Fasting)) H 05/28/25 06:49 Lactate 1.6 mmol/L (0.4-2.0) 05/26/25 18:55 Calcium 8.6 mg/dl (8.6-10.3) 05/28/25 06:49 Magnesium 1.7 mg/dl (1.7-2.4) 05/26/25 18:55 Total Bilirubin 0.4 mg/dl (0.2-1.0) 05/26/25 18:55 Direct Bilirubin 0.1 mg/dl (0-0.2) 05/26/25 18:55 AST 14 U/L (13-39) 05/26/25 18:55 ALT 11 U/L (7-52) 05/26/25 18:55 Alkaline Phosphatase 64 U/L (34-104) 05/26/25 18:55 Troponin I High Sens 7.7 pg/ml (0-20) 05/26/25 18:55 C-Reactive Protein < 0.50 mg/dl (0-0.5) 05/26/25 18:55 B-Natriuretic Peptide 187 pg/ml (0-100) H 05/27/25 04:40 Total Protein 7.8 gm/dl (6.0-8.3) 05/26/25 18:55 Albumin 4.0 gm/dl (3.4-5.0) 05/26/25 18:55 Procalcitonin 0.03 ng/ml (0-0.5) 05/26/25 18:55 Urine Color Yellow 05/26/25 23:24 Urine Appearance Clear (Clear) 05/26/25 23:24 Urine pH 5.5 (4.5-7.5) 05/26/25 23:24 Ur Specific [place] 1.019 (1.000-1.030) 05/26/25 23:24 Urine Protein Trace (Negative) H 05/26/25 23:24 Urine Glucose (UA) Negative (Negative) 05/26/25 23:24 Urine Ketones Negative (Negative) 05/26/25 23:24 Urine Blood 3+ (Negative) H 05/26/25 23:24 Urine Nitrite Negative (Negative) 05/26/25 23:24 Urine Bilirubin Negative (Negative) 05/26/25 23:24 Urine Urobilinogen Negative (Negative) 05/26/25 23:24 Ur Leukocyte Esterase Negative (Negative) 05/26/25 23:24 Urine WBC (Auto) 0-5 /hpf (0-5) 05/26/25 23:24 Urine RBC (Auto) >20 /hpf (0-2) H 05/26/25 23:24 U Hyaline Cast (Auto) 0-2 /lpf (0-2) 05/26/25 23:24 U Epithel Cells (Auto) 0-2 /hpf (0-2) 05/26/25 23:24 Urine Bacteria (Auto) None Seen (None Seen) 05/26/25 23:24 Calcium Oxalate Crystal Present (None Prsent) A 05/26/25 23:24 Urine Comment 05/26/25 23:24 Nasal Screen MRSA (PCR) Positive (Negative) A 05/26/25 18:55 Stl C. diff Tox B Gene Negative Cdiff Gene (Neg) 05/26/25 23:40 Stl C. diff [id number] NEGATIVE 05/26/25 23:40 Adenovirus (PCR) Not Detected (NotDetected) 05/26/25 18:55 B. pertussis DNA (PCR) Not Detected (NotDetected) 05/26/25 18:55 B.parapertussis DNA PCR Not Detected (NotDetected) 05/26/25 18:55 C. pneumoniae DNA (PCR) Not Detected (NotDetected) 05/26/25 18:55 Coronavirus OC43 (PCR) Not Detected (NotDetected) 05/26/25 18:55 Coronavirus HKU1 (PCR) Not Detected (NotDetected) 05/26/25 18:55 Coronavirus 229E (PCR) Not Detected (NotDetected) 05/26/25 18:55 SARS-CoV-2 (PCR) Not Detected (NotDetected) 05/26/25 18:55 Coronavirus NL63 (PCR) Not Detected (NotDetected) 05/26/25 18:55 Human Metapneumovir PCR Not Detected (NotDetected) 05/26/25 18:55 Influenza Type A (PCR) Not Detected (NotDetected) 05/26/25 18:55 Influenza Type B (PCR) Not Detected (NotDetected) 05/26/25 18:55 M. pneumoniae (PCR) Not Detected (NotDetected) 05/26/25 18:55 Parainfluenza 1 (PCR) Not Detected (NotDetected) 05/26/25 18:55 Parainfluenza 2 (PCR) Not Detected (NotDetected) 05/26/25 18:55 Parainfluenza 3 (PCR) Not Detected (NotDetected) 05/26/25 18:55 Parainfluenza 4 (PCR) Not Detected (NotDetected) 05/26/25 18:55 RSV (PCR) Not Detected (NotDetected) 05/26/25 18:55 Entero/Rhino (PCR) Not Detected (NotDetected) 05/26/25 18:55 Microbiology 05/26/25 19:25 Blood Aerobic Blood Culture - Preliminary No growth in Aerobic bottle after 48 hours. 05/26/25 19:25 Blood Anaerobic Blood Culture - Preliminary No growth in Anaerobic bottle after 48 hours. 05/26/25 18:55 Blood Aerobic Blood Culture - Preliminary No growth in Aerobic bottle after 48 hours. 05/26/25 18:55 Blood Anaerobic Blood Culture - Preliminary No growth in Anaerobic bottle after 48 hours. 05/27/25 16:00 Knee,Right Gram Stain - Final 05/27/25 16:00 Knee,Right Aerobic and Anaerobic Culture - Preliminary Staph aureus MRSA 05/27/25 Unknown Knee,Right Gram Stain - Final 05/27/25 Unknown Knee,Right Aerobic and Anaerobic Culture - Preliminary Staph aureus MRSA
[2025-05-29 06:50] LABS: Creatinine Clr Calc Pharmacy 58.0 ml/min
[2025-05-29] MEDS: HYDROmorphone INJ 0.5 MG/0.5 ML SYR IV PRN (07:49)
--- NOTE | 2025-05-29 15:44 | Hospitalist Progress Note ---
Date of Service May 29, 2025 Assessment & Plan (1) Cellulitis of right leg: (2) CAD (coronary artery disease): (3) EILEEN on CPAP: (4) Essential hypertension: (5) COPD (chronic obstructive pulmonary disease): (6) GERD (gastroesophageal reflux disease): (7) Dementia: (8) Prepatellar bursitis of right knee: Plan 85-year-old male with history of coronary artery disease status post stent, status post three-vessel CABG in 2012, pacemaker in place, ischemic cardiomyopathy/heart failure with reduced EF (last echo in 2022 with EF of 50 to 55%, significant inferior and inferolateral hypokinesis) presenting with worsening warmth, redness and swelling of right lower extremity. 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 Some concern about possible joint infection. Patient is planning to go to the operating room tomorrow with Dr. Gruber for a washout of the lesion, possible exchange of hardware should the infection spread to the prosthesis. #Cellulitis and prepatellar infected bursitis s/p Right Knee Prepatellar Bursa Incision and Drainage 05/[address] Emanuel Blood cultures negative @ 48 hours Discussed with infectious disease and will switch to oral linezolid for 10 days s/p I&D, awaiting formal consult #Coronary artery disease / Cardiomyopathy Appreciate cardiology consult Continue metoprolol 50 mg p.o. daily Continue simvastatin 40 mg p.o. nightly and Zetia 10 mg daily Continue isosorbide mononitrate 120 mg p.o. every morning Restart aspirin Will hold Entresto given ongoing low normal BP Restart Lasix #COPDpatient does not use oxygen or inhalers Monitor respiratory status closely postoperatively #Essential hypertensionblood pressure is acceptable at present Continue metoprolol, isosorbide, lasix Holding Entresto Continue to monitor #GERD Continue Protonix #Dementia without behavioral disturbances/mental health Continue Aricept 10 mg p.o. nightly Continue Namenda 10 mg p.o. twice daily Continue Zoloft 100 mg p.o. every morning Frequent orientation Delirium prevention strategies #IELEEN on CPAP Continue CPAP VTE Prophylaxis - Eliquis per orthopedic recommendations Disposition - admit med/surg Admission and Anticipated Discharge Date Admission Date: May 26, 2025 Subjective No acute concerns or questions from the patient. Physical Exam 2 Respiratory: normal respiratory effort, lungs clear to auscultation Cardiovascular: RRR, no murmur, no edema Results & Data Results & Data Vital Signs (Past 12 Hours) Vital Signs Temp Pulse Resp BP Pulse Ox O2 Del Method O2 Flow Rate 05/29/25 14:27 36.5 C 71 16 95/60 L 96 Nasal Cannula 2 05/29/25 08:56 Room Air 05/29/25 07:01 36.7 C 72 16 127/71 93 Nasal Cannula 2 PG Care Time/CCT Total # of Minutes Spent Total Time Spent with Patient: Total time spent is greater than 50% in coordination of care (as documented) at patient's floor/unit and/or counseling patient: Coding Level of Care Code 78483 SUB INP/OBS CARE 235MIN Diagnoses Cellulitis of right leg L03.115 Coronary artery disease involving [place] coronary artery of [place] heart with angina pectoris I25.119 Coronary Disease-Associated Artery/Lesion type: [place] artery [place] vs. transplanted heart: [place] heart Associated angina: with unspecified angina EILEEN on CPAP G47.33; Z99.89 Essential hypertension I10 Chronic obstructive pulmonary disease, unspecified COPD type J44.9 COPD type: unspecified COPD Gastroesophageal reflux disease, esophagitis presence not specified K21.9 Esophagitis presence: esophagitis presence not specified Dementia F03.90 Prepatellar bursitis of right knee M70.41 (2) CAD (coronary artery disease) Coronary Disease-Associated Artery/Lesion type: [place] artery [place] vs. transplanted heart: [place] heart Associated angina: with unspecified angina Qualified Code(s): I25.119 - Atherosclerotic heart disease of [place] coronary artery with unspecified angina pectoris (5) COPD (chronic obstructive pulmonary disease) COPD type: unspecified COPD Qualified Code(s): J44.9 - Chronic obstructive pulmonary disease, unspecified (6) GERD (gastroesophageal reflux disease) Esophagitis presence: esophagitis presence not specified Qualified Code(s): K21.9 - Gastro-esophageal reflux disease without esophagitis
[2025-05-29] MEDS ORDERED: LINEZOLID 600 MG TAB PO SCH (21:00)
[2025-05-30 04:54] LABS: Hematocrit (blood only) 29.6 % (42.0-52.0); Hemoglobin 9.4 g/dl (14.0-18.0); Mean Corpuscular Hemoglobin 26.1 pg (25.0-34.0); Mean Corpuscular Volume 82.2 fL (80.0-100.0); Platelet Count 155 K/uL (130-400); RDW Standard Deviation 41.4 fL (36.4-46.3); Red Blood Count 3.60 M/uL (4.70-6.10); White Blood Count 8.59 K/ul (4.8-10.8)
[2025-05-30 05:09] LABS: Anion Gap 8.0 (3-11); Blood Urea Nitrogen 15.0 mg/dl (6-23); Calcium 9.2 mg/dl (8.6-10.3); Carbon Dioxide 24.0 mmol/L (21-32); Chloride 106.0 mmol/L (98-107); Creatinine Clr Calc Pharmacy 64.7 ml/min; Glucose 102.0 mg/dl (70-99(Fasting)); Potassium 3.6 mmol/L (3.5-5.1); Sodium 138.0 mmol/L (136-145)
--- NOTE | 2025-05-30 07:52 | Pharmacy Report ---
Pharmacy PK ABX Note - Date of Service May 30, 2025 - Assessment and Plan Assessment 05/30 * Vancomycin level this AM came back at ~14.7 mcg/ml - current dosing associated with goal AUC/SARAH therefore will continue current regimen. Cultures positive for MRSA. 05/25: * 85 year old M receiving vancomycin for treatment of cellulitis of the right leg r/o deeper infection. Pertinent microbiologic data includes: blood cultures pending. * OR planned later today with Dr. Emanuel for possible prothesis exchange and infection evaluation. Plan Vancomycin * Continue 1500 mg iv q 24 hours Pharmacy will continue to follow and will adjust dose/frequency as necessary. Thank you. Pharmacy has transitioned to AUC monitoring for vancomycin. AUC/SARAH is the preferred PK/PD target and is associated with decreased risk of nephrotoxicity compared to traditional trough targets.
[2025-05-30] MEDS: ASPIRIN 81 MG ECTAB PO SCH (08:58)
[2025-05-30] MEDS: FUROSEMIDE 40 MG TAB PO SCH (08:58)
--- NOTE | 2025-05-30 13:02 | Infectious Disease Consult ---
Date of Consultation May 30, 2025 Assessment & Plan (1) Prepatellar bursitis of right knee: Plan This is an 85-year-old male with a past medical history of dementia, CAD, status post pacemaker placement, prostate cancer status post prostatectomy, right knee replacement in 2017. COPD, CHF, recently admitted 05/16/2025 - 05/18/2025 for left lower lobe pneumonia, right lower extremity cellulitis with infrapatellar soft tissue swelling. He initially treated with ceftriaxone and doxycycline inpatient with improvement in cellulitis and discharged on doxycycline and Augmentin for 1 week. He presents back to the [facility] ED on 06/15/2025 for evaluation of right knee infection. He has dementia and is a poor historian. History mostly obtained from chart review. It appears he was seen post discharge by his PCP on 05/23/25. He reported that the right lower extremity erythema had returned. Per PCP note, area was erythematous without warmth. He was prescribed another 7 days of doxycycline and Augmentin. He was subsequently evaluated by orthopedics outpatient and noted to have pus draining out of the prepatellar bursa. Swabs obtained of the bursa outpatient grew MRSA. He was sent to the ED for evaluation of prepatellar bursitis. He denied fever, chills, sweats. . He endorsed increasing right knee erythema, edema. In the ED, he was afebrile and hemodynamically stable. Labs: WBC 8.62, ESR 65, BUN 21, creatinine 1.12, lactate 1.6, procalcitonin 0.03. Urinalysis not consistent with infection. MRSA screen positive, C. difficile testing negative, RVP negative. Chest x-ray with no acute cardiopulmonary process with unchanged appearance of the chest. He was evaluated by orthopedic surgery and underwent right knee prepatellar bursa incision and drainage, sharp debridement of skin and subcutaneous fat and prepatellar bursa. Per op report and orthopedic documentation the right total knee is not infected. There was necrotic prepatellar bursa tissue. It was resected and there was no communication with the joint. Cultures were obtained of the bursa in the OR which grew MRSA. In the ED, prior to OR , he received a dose of ceftriaxone and developed hives. Ceftriaxone was discontinued. He was started on Cefepime and Vancomycin. Currently on IV vancomycin. Infectious disease consulted for prepatellar bursitis. Microbiology: 05/26 OUTPATIENT culture( prepatellar wound )- MRSA ( S VANC, Basia, Doxy, TMP- SMX) 10 MRSA nares positive 05/27 C. difficile testing negative 05/27 OR culture (prepatellar bursa tissue) MRSA (sensitivities pending) 10 OR culture #2 (prepatellar bursa tissue) MRSA Antibiotics Ceftriaxone 10/2 Cefepime 10/2 Vancomycin 10/2current # Right knee MRSA septic bursitis, no involvement of prosthetic joint # History of right knee arthroplasty,2017 # Status post biventricular cardiac pacemaker # Sulfa allergyrash # Ceftriaxone allergyrash Discussion: He presents with right knee prepatellar septic bursitis He underwent I&D and removal of necrotic prepatellar tissue in the OR. Per op report/Ortho no communication with the joint. No involvement of the right knee prosthetic. Interoperative cultures growing MRSA. Sensitivities pending. Since there is no evidence of prosthetic joint infection he will not need a long-term antibiotic course with suppression. He could likely be transitioned to oral antibiotics once sensitivities. Linezolid would be an option however he is on an SSRI, and at risk for serotonin syndrome so will not start. He has a sulfa allergy. Hopefully interoperative MRSA sensitive to doxycycline. Recommendations Continue IV vancomycin per pharmacy protocol for now. Hopefully, we can transition to oral doxycycline. For MRSA prepatellar bursitis with nearby prosthetic, but prosthetic not infected, plan to treat for 3 to 4 weeks total from OR Follow-up intraoperative MRSA sensitivities. Communicated recommendations to hospitalist. Thank you for this consult. ID will continue to follow. Rhona Milian MD, MPH Infectious Disease [facility], [facility] Call [phone] with questions Consultation Information Consultation was provided via telemedicine using two-way real-time interactive telecommunication between the patient and the telemedicine provider. For the duration of the visit, the provider was performing the assessment from a different facility than the patient. This includesuse of bluetooth stethoscope forauscultationperformed by the telepresenter that the telemedicine provider can hear if described in the physical exam. Fiber Artist contact information: Please call [facility] Call Center [phone]. (Phone Number For Physician Use Only) After establishing a telemedicine visit, patient was: Patient was verified with two unique identifiers and Gave permission to continue telehealth session Time Spent with Patient: Initial => 75 min History of Present Illness Reason for Consultation: Left knee bursitis Requesting Physician: Alejandro Phelps MD Attending Physician: Alejandro Phelps MD History of Present Illness This is an 85-year-old male with a past medical history of dementia, CAD, status post pacemaker placement, prostate cancer status post prostatectomy, right knee replacement in 2017. COPD, CHF, recently admitted 05/16/2025 - 05/18/2025 for left lower lobe pneumonia, right lower extremity cellulitis with infrapatellar soft tissue swelling. He initially treated with ceftriaxone and doxycycline inpatient with improvement in cellulitis and discharged on doxycycline and Augmentin for 1 week. He presents back to the [facility] ED on 06/15/2025 for evaluation of right knee infection. He has dementia and is a poor historian. History mostly obtained from chart review. It appears he was seen post discharge by his PCP on 05/23/25. He reported that the right lower extremity erythema had returned. Per PCP note, area was erythematous without warmth. He was prescribed another 7 days of doxycycline and Augmentin. He was subsequently evaluated by orthopedics outpatient and noted to have pus draining out of the prepatellar bursa. Swabs obtained of the bursa outpatient grew MRSA. He was sent to the ED for evaluation of prepatellar bursitis. He denied fever, chills, sweats. . He endorsed increasing right knee erythema, edema. In the ED, he was afebrile and hemodynamically stable. Labs: WBC 8.62, ESR 65, BUN 21, creatinine 1.12, lactate 1.6, procalcitonin 0.03. Urinalysis not consistent with infection. MRSA screen positive, C. difficile testing negative, RVP negative. Chest x-ray with no acute cardiopulmonary process with unchanged appearance of the chest. He was evaluated by orthopedic surgery and underwent right knee prepatellar bursa incision and drainage, sharp debridement of skin and subcutaneous fat and prepatellar bursa. Per op report and orthopedic documentation the right total knee is not infected. There was necrotic prepatellar bursa tissue. It was resected and there was no communication with the joint. Cultures were obtained of the bursa in the OR which grew MRSA. In the ED, prior to OR , he received a dose of ceftriaxone and developed hives. Ceftriaxone was discontinued. He was started on Cefepime and Vancomycin. Currently on IV vancomycin. Infectious disease consulted for prepatellar bursitis. Allergies Allergy/AdvReac Type Severity Reaction Status Date / Time Sulfa (Sulfonamide Allergy Mild rash Verified 05/23/25 11:45 Antibiotics) ceftriaxone Allergy Hives Verified 05/27/25 00:40 lisinopril AdvReac Intermediate cough Verified 05/23/25 11:45 metoclopramide AdvReac Intermediate Depression Verified 05/23/25 11:45 oxycodone [From OxyContin] AdvReac Intermediate Hallucinati Verified 05/23/25 11:45 ons ciprofloxacin [From Cipro] AdvReac Unknown see notes Verified 05/23/25 11:45 Home Medications Medication Instructions Recorded Confirmed Type multivitamin (Daily Multi-Vitamin 1 tab PO DAILY 09/07/20 05/26/25 History tablet) donepezil 10 mg tablet 10 mg PO HS 12/03/24 05/26/25 History memantine 10 mg tablet 10 mg PO BID 12/03/24 05/26/25 History sertraline 100 mg tablet (Zoloft) 100 mg PO QAM #90 tabs 03/09/25 05/26/25 Rx esomeprazole magnesium 40 mg 40 mg PO QPM #90 caps 03/18/25 05/26/25 Rx capsule,delayed release (Nexium) ezetimibe 10 mg-simvastatin 40 mg 1 tab PO HS #90 tabs 03/18/25 05/26/25 Rx tablet (Vytorin) furosemide 40 mg tablet 40 mg PO QAM #90 tabs 03/18/25 05/26/25 Rx metoprolol succinate 50 mg 50 mg PO DAILY #90 tabs 03/18/25 05/26/25 Rx tablet,extended release 24 hr nitroglycerin 0.4 mg sublingual 0.4 mg sublingual DIRECTED PRN 03/18/25 05/26/25 Rx tablet Chest Pain #25 tabs cholecalciferol (vitamin D3) 25 4,000 unit PO DAILY 04/07/25 05/26/25 History mcg (1,000 unit) capsule diaper,brief,adult,disposable #300 ea 04/07/25 05/26/25 Rx isosorbide mononitrate 60 mg 120 mg PO QAM 04/07/25 05/26/25 History tablet,extended release 24 hr reusable chux #10 ea 04/07/25 05/26/25 Rx aspirin 81 mg tablet,delayed 81 mg PO QAM 05/16/25 05/26/25 History release amoxicillin 875 mg-potassium 1 tab PO BID 7 days #14 tabs 05/23/25 05/26/25 Rx clavulanate 125 mg tablet doxycycline hyclate 100 mg capsule 100 mg PO BID 7 days #14 caps 05/23/25 05/26/25 Rx sacubitril 24 mg-valsartan 26 mg 1 - 2 tab PO UD 05/26/25 05/26/25 History tablet (Entresto) Patient History Medical History Chronic anemia Hgb baseline 11-12 range per chart review Urge incontinence of urine 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 Recurrent UTI NSVT (nonsustained ventricular tachycardia) Low testosterone Laryngopharyngeal reflux Impotence, organic Hypertension 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 History of urinary incontinence SMA stenosis asymptomatic, "incidental finding" per cardiology A-fib Incidentally noted episodic a.fib/a.flutter on PPM check- on ASA/beta alyssa, cardiology holding on anticoagulation in setting of hematuria Pulmonary HTN Noted per remote hx, Normal est RA and PA pressures per most recent 07/2020 echo CAD (coronary artery disease) S/P CABG x3 (2012), remote hx of cardiac stents x2 (7+ years ago) History of prostate cancer Kyphosis GERD (gastroesophageal reflux disease) controlled Sleep apnea CPAP Hx of myocardial infarction During cardiac cath (2012)- subsequent CABG x3 ("due to perforation of artery during cath") Rosacea Surgical History History of ERCP Hx laparoscopic cholecystectomy S/P CABG x 3 2012 S/P biventricular cardiac pacemaker procedure History of coronary artery bypass graft H/O three vessel coronary artery bypass S/P placement of cardiac pacemaker S/P CABG (coronary artery bypass graft) H/O cystoscopy Cystoscopy, laser lithopaxy, urethral dilation (09/14/19): MAC at [facility] Hx of bilateral cataract extraction + Lasik Hx of colonoscopy Hx of tooth extraction History of arthroplasty of right knee History of robot-assisted laparoscopic radical prostatectomy 2016 History of cardiac cath remote hx cardiac stents x2 04/2019: medically managed Family History Mother Hypertension Breast cancer Father Cardiac disorder Myocardial infarction Denies family history of Clotting disorder Social History Smoking Status: Never smoker Tobacco Type: Cigarettes Age Started Using Tobacco: 21; Age Quit Using Tobacco: 48; packs per day: 1; Second Hand Exposure: No; Do You Dip or Chew Tobacco: No; Hx Alcohol Use: Yes Alcohol type: beer Hx Substance Use: No Preferred Language: Gambian Communication Ability: Effective Visual Impairment: Limited Skin Peeling Machine Operator Required: No Beliefs That Will Affect Care: None marital status: Current Living Situation: Spouse current occupational status: 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 Feels Safe at Home: Yes Childhood Exposure to Second-Hand Smoke: Yes caffeine: No during the past year weight has: decreased > 10 lbs Physical Activity Frequency: Daily Physical Activity Frequency Comment: walks dogs daily Seatbelt Use: always Sunscreen Use: Yes Assistive Devices: CPAP and Walker Physical Exam Physical Exam: NAD, sitting up in chair Supple neck AT/NC,Anicteric sclera Non labored breathing on RA Soft abdomen, NT, ND Right knee dressed in immobilizer, no upper thigh or foot edema AAO times 2 Cooperative Results & Data Vital Signs (Past 12 Hours) Vital Signs Temp Pulse Resp BP Pulse Ox O2 Del Method 05/30/25 07:35 36.6 C 82 16 151/79 H 92 Room Air 05/30/25 07:20 Room Air Laboratory Results Laboratory Results - last 48 hr 05/29/25 05/30/25 05:39 04:41 WBC 8.59 RBC 3.60 L Hgb 9.4 L Hct 29.6 L MCV 82.2 MCH 26.1 MCHC 31.8 L RDW Std Deviation 41.4 RDW Coeff of Ricky 13.8 Plt Count 155 MPV 10.1 Sodium 138 Potassium 3.6 Chloride 106 Carbon Dioxide 24 Anion Gap 8 BUN 15 Creatinine 1.16 1.04 Est Cr Clr Drug Dosing 58.0 64.7 eGFR 62.50 71.24 BUN/Creatinine Ratio 14.4 Glucose 102 H Calcium 9.2 Random Vancomycin 14.7 Microbiology 05/27/25 Unknown Knee,Right Gram Stain - Final 05/27/25 Unknown Knee,Right Aerobic and Anaerobic Culture - Preliminary Staph aureus MRSA 05/27/25 16:00 Knee,Right Gram Stain - Final 05/27/25 16:00 Knee,Right Aerobic and Anaerobic Culture - Preliminary Staph aureus MRSA 05/26/25 19:25 Blood Aerobic Blood Culture - Preliminary No growth in Aerobic bottle after 48 hours. 05/26/25 19:25 Blood Anaerobic Blood Culture - Preliminary No growth in Anaerobic bottle after 48 hours. 05/26/25 18:55 Blood Aerobic Blood Culture - Preliminary No growth in Aerobic bottle after 48 hours. 05/26/25 18:55 Blood Anaerobic Blood Culture - Preliminary No growth in Anaerobic bottle after 48 hours. Medications Administered Home Medications Medication Instructions Recorded Confirmed Last Taken multivitamin (Daily Multi-Vitamin 1 tab PO DAILY 09/07/20 05/26/25 05/16/25 tablet) donepezil 10 mg tablet 10 mg PO HS 12/03/24 05/26/25 05/15/25 memantine 10 mg tablet 10 mg PO BID 12/03/24 05/26/25 05/16/25 08:00 sertraline 100 mg tablet (Zoloft) 100 mg PO QAM #90 tabs 03/09/25 05/26/25 05/16/25 esomeprazole magnesium 40 mg 40 mg PO QPM #90 caps 03/18/25 05/26/25 05/15/25 capsule,delayed release (Nexium) ezetimibe 10 mg-simvastatin 40 mg 1 tab PO HS #90 tabs 03/18/25 05/26/25 05/15/25 tablet (Vytorin) furosemide 40 mg tablet 40 mg PO QAM #90 tabs 03/18/25 05/26/25 05/16/25 metoprolol succinate 50 mg 50 mg PO DAILY #90 tabs 03/18/25 05/26/25 05/16/25 tablet,extended release 24 hr nitroglycerin 0.4 mg sublingual 0.4 mg sublingual DIRECTED PRN 03/18/25 05/26/25 Unknown tablet Chest Pain #25 tabs cholecalciferol (vitamin D3) 25 4,000 unit PO DAILY 04/07/25 05/26/25 05/16/25 mcg (1,000 unit) capsule diaper,brief,adult,disposable #300 ea 04/07/25 05/26/25 Unknown isosorbide mononitrate 60 mg 120 mg PO QAM 04/07/25 05/26/25 05/16/25 tablet,extended release 24 hr reusable chux #10 ea 04/07/25 05/26/25 Unknown aspirin 81 mg tablet,delayed 81 mg PO QAM 05/16/25 05/26/25 05/16/25 release amoxicillin 875 mg-potassium 1 tab PO BID 7 days #14 tabs 05/23/25 05/26/25 Unknown clavulanate 125 mg tablet doxycycline hyclate 100 mg capsule 100 mg PO BID 7 days #14 caps 05/23/25 05/26/25 Unknown sacubitril 24 mg-valsartan 26 mg 1 - 2 tab PO UD 05/26/25 05/26/25 Unknown tablet (Entresto) Active Medications Generic Name Dose Route Start Last Admin Trade Name Julee PRN Reason Stop Dose Admin Apixaban 2.5 mg 05/28/25 21:00 05/30/25 08:34 Apixaban 2.5 Mg Tab PO 06/27/25 20:59 2.5 mg BID VENICE Administration Aspirin 81 mg 05/30/25 09:00 05/30/25 08:58 Aspirin 81 Mg Ectab PO 06/29/25 08:59 81 mg QAM VENICE Administration Docusate Sodium 100 mg 05/27/25 21:00 05/30/25 08:33 Docusate Sodium 100 Mg Cap PO 06/26/25 20:59 Not Given BID VENICE Donepezil HCl 10 mg 05/27/25 21:00 05/28/25 20:12 Donepezil Hcl 10 Mg Tab PO 06/26/25 20:59 10 mg HS VENICE Administration Ezetimibe 10 mg 05/27/25 21:00 05/29/25 20:10 Ezetimibe 10 Mg Tab PO 06/26/25 20:59 10 mg HS VENICE Administration Furosemide 40 mg 05/30/25 09:00 05/30/25 08:58 Furosemide 40 Mg Tab PO 06/29/25 08:59 40 mg QAM VENICE Administration Hydromorphone HCl 0.25 mg 05/27/25 18:29 05/29/25 07:49 Hydromorphone Inj 0.5 Mg/0.5 Ml Syr IV 06/10/25 18:17 0.25 mg Q4H PRN Administration Pain or Pre PT Vancomycin HCl 1,500 mg/ 530 mls @ 200 mls/hr 05/27/25 11:00 05/30/25 12:00 Sodium Chloride IV 06/03/25 10:59 200 mls/hr Q24H VENICE Administration Isosorbide Mononitrate 120 mg 05/27/25 09:00 05/30/25 08:58 Isosorbide [place] Extended Rel 60 Mg Tabcr PO 06/26/25 08:59 120 mg QAM VENICE Administration Ketorolac Tromethamine 15 mg 05/27/25 18:18 05/27/25 18:38 Ketorolac Tromethamine 15 Mg/Ml Vial IV 15 mg Q6H PRN Administration Breakthrough Pain Lactobacillus Acidophilus 1,250 mg 05/28/25 09:00 05/30/25 08:34 Advanced Probiotic 625 Mg Capsule PO 06/27/25 08:59 1,250 mg DAILY VENICE Administration Memantine 10 mg 05/27/25 09:00 05/30/25 08:34 Memantine Hcl 10 Mg Tab PO 06/26/25 08:59 10 mg BID VENICE Administration Metoprolol Succinate 50 mg 05/27/25 09:00 05/30/25 08:34 Metoprolol Succ 50mg Ext Rel Tab PO 06/26/25 08:59 50 mg DAILY VENICE Administration Multivitamins 1 tab 05/28/25 09:00 05/30/25 08:35 Multivitamin Tab PO 06/27/25 08:59 1 tab QAM VENICE Administration Pantoprazole Sodium 40 mg 05/27/25 09:00 05/30/25 08:34 Pantoprazole 40 Mg Tab PO 06/26/25 08:59 40 mg DAILY VENICE Administration Sennosides 17.2 mg 05/27/25 21:00 05/29/25 20:11 Senna 8.6 Mg Tab PO 06/26/25 20:59 17.2 mg HS VENICE Administration Sertraline HCl 100 mg 05/27/25 09:00 05/30/25 08:35 Sertraline Hcl 100 Mg Tablet PO 06/26/25 08:59 100 mg QAM VENICE Administration Simvastatin 40 mg 05/27/25 21:00 05/29/25 20:11 Simvastatin 40 Mg Tab PO 06/26/25 20:59 40 mg HS VENICE Administration Protocol Tramadol HCl 50 - 100 mg 05/27/25 18:18 05/28/25 15:08 Tramadol Hcl 50 Mg Tablet PO 06/26/25 18:17 100 mg Q4H PRN Administration Pain & Pre PT
--- NOTE | 2025-05-30 15:17 | Electrocardiogram Report ---
Test Reason : Blood Pressure : */* mmHG Vent. Rate : 70 BPM Atrial Rate : 357 BPM P-R Int : * ms QRS Dur : 148 ms QT Int : 496 ms P-R-T Axes : * -44 58 degrees QTcB Int : 535 ms Ventricular-paced rhythm with premature ventricular or aberrantly conducted complexes Biventricular pacemaker detected Abnormal ECG When compared with ECG of 29-May-2025 15:58, (unconfirmed) Premature ventricular complexes are no longer Present Confirmed by Cortes Casanova ([id number]) on 05/30/2025 3:16:39 PM Referred By: REFERRED SELF Confirmed By: Cortes Casanova
--- NOTE | 2025-05-30 15:52 | Orthopedic Progress Note ---
Date of Service May 30, 2025 Assessment & Plan (1) Prepatellar bursitis of right knee: Plan: POD #3 s/p Right Knee Prepatellar Bursa Incision and Drainage (Right), sharp debridement of skin and subcutaneous fat and prepatellar bursa ID Consulted, currently on Vanco. Cultures showing MRSA. DVT with MY/SCD/Eliquis will remain in immobilizer, can loosen in bed if uncomfortable, otherwise on for ambulation. This can be periodically removed under supervision for range of motion of his knee.Patient needs to continue on antibiotics and these need to be adjusted eventually to oral antibiotics per infectious disease consult when felt appropriate. He has multiple allergies so unclear which antibiotics to use at this time. According to discussion with his there was some concern about her taking care of him on her own and may need jail facility or rehab type hospital for period of time once discharged.. Admission and Anticipated Discharge Date Admission Date: May 26, 2025 Subjective comfortable No complaints Review of Systems Review of Systems: No fever or chills Physical Exam Musculoskeletal: Knee incision with some mild surrounding erythema improved from preoperative status. No purulence or drainage. Leg erythema is diminishing. Circulation sensorimotor exam all intact. No knee effusion no signs of any knee joint infection. Results & Data Vital Signs (Past 12 Hours) Vital Signs Temp Pulse Resp BP Pulse Ox O2 Del Method 05/30/25 15:01 36.8 C 74 16 121/60 97 Room Air 05/30/25 07:35 36.6 C 82 16 151/79 H 92 Room Air 05/30/25 07:20 Room Air Laboratory Results Cultures positive for MRSA
--- NOTE | 2025-05-30 18:17 | Hospitalist Progress Note ---
Date of Service May 30, 2025 Assessment & Plan (1) Cellulitis of right leg: (2) CAD (coronary artery disease): (3) EILEEN on CPAP: (4) Essential hypertension: (5) COPD (chronic obstructive pulmonary disease): (6) GERD (gastroesophageal reflux disease): (7) Dementia: (8) Prepatellar bursitis of right knee: Plan 85-year-old male with history of coronary artery disease status post stent, status post three-vessel CABG in 2012, pacemaker in place, ischemic cardiomyopathy/heart failure with reduced EF (last echo in 2022 with EF of 50 to 55%, significant inferior and inferolateral hypokinesis) presenting with worsening warmth, redness and swelling of right lower extremity. 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 Some concern about possible joint infection. Patient is planning to go to the operating room tomorrow with Dr. Gruber for a washout of the lesion, possible exchange of hardware should the infection spread to the prosthesis. #Cellulitis and prepatellar infected bursitis s/p Right Knee Prepatellar Bursa Incision and Drainage 05/[address] Emanuel Blood cultures negative @ 48 hours Discussed with infectious disease. Issue with linezolid is more the SSRI than QTC. Initial ER culture sensitive to doxycycline however initially surgical wound culture sensitivities were not going to be performed as labelling indicated same location as the ER cultures however on further discussion I have asked microbiology to add sensitivities to the surgical cultures and if sensitive to doxycycline he can be discharged on this orally, duration to be determined but will be medically stable once the surgical sensitives have come back #Coronary artery disease / Cardiomyopathy Appreciate cardiology consult Continue metoprolol 50 mg p.o. daily Continue simvastatin 40 mg p.o. nightly and Zetia 10 mg daily Continue isosorbide mononitrate 120 mg p.o. every morning Restart aspirin Will place back on his normal half dose Entresto in the morning Restarted Lasix #COPDpatient does not use oxygen or inhalers Monitor respiratory status closely postoperatively #Essential hypertensionblood pressure is acceptable at present Continue metoprolol, isosorbide, lasix Restart Entresto tomorrow Continue to monitor #GERD Continue Protonix #Dementia without behavioral disturbances/mental health Continue Aricept 10 mg p.o. nightly (holding due to prolonged QTC Continue Namenda 10 mg p.o. twice daily Continue Zoloft 100 mg p.o. every morning Frequent orientation Delirium prevention strategies #EILEEN on CPAP Continue CPAP VTE Prophylaxis - Eliquis per orthopedic recommendations Disposition - continue on med/surg pending surgical culture sensitivities Admission and Anticipated Discharge Date Admission Date: May 26, 2025 Subjective No acute concerns or questions from the patient Tried calling his today but no answer at number on EHR Physical Exam Respiratory: normal respiratory effort, lungs clear to auscultation Cardiovascular: RRR, no murmur, no edema Vessels: posterior tibial pulses present (right) and dorsalis pedis pulses present (right) Results & Data Results & Data Vital Signs (Past 12 Hours) Vital Signs Temp Pulse Resp BP Pulse Ox O2 Del Method 05/30/25 15:01 36.8 C 74 16 121/60 97 Room Air 05/30/25 07:35 36.6 C 82 16 151/79 H 92 Room Air 05/30/25 07:20 Room Air PG Care Time/CCT Total # of Minutes Spent Total Time Spent with Patient: Total time spent is greater than 50% in coordination of care (as documented) at patient's floor/unit and/or counseling patient: Coding Level of Care Code 91029 SUB INP/OBS CARE 235MIN Diagnoses Cellulitis of right leg L03.115 Coronary artery disease involving [place] coronary artery of [place] heart with angina pectoris I25.119 Associated angina: with unspecified angina Coronary Disease-Associated Artery/Lesion type: [place] artery [place] vs. transplanted heart: [place] heart EILEEN on CPAP G47.33; Z99.89 Essential hypertension I10 Chronic obstructive pulmonary disease, unspecified COPD type J44.9 COPD type: unspecified COPD Gastroesophageal reflux disease, esophagitis presence not specified K21.9 Esophagitis presence: esophagitis presence not specified Dementia F03.90 Prepatellar bursitis of right knee M70.41 (2) CAD (coronary artery disease) Associated angina: with unspecified angina Coronary Disease-Associated Artery/Lesion type: [place] artery [place] vs. transplanted heart: [place] heart Qualified Code(s): I25.119 - Atherosclerotic heart disease of [place] coronary artery with unspecified angina pectoris (5) COPD (chronic obstructive pulmonary disease) COPD type: unspecified COPD Qualified Code(s): J44.9 - Chronic obstructive pulmonary disease, unspecified (6) GERD (gastroesophageal reflux disease) Esophagitis presence: esophagitis presence not specified Qualified Code(s): K21.9 - Gastro-esophageal reflux disease without esophagitis
[2025-05-30] MEDS: MELATONIN 3 MG TAB PO PRN (23:11)
[2025-05-31] MEDS: MICONAZOLE NITRATE POWDER 85 GM EXT PRN (05:47)
[2025-05-31] MEDS: VALSARTAN/SACUBITRIL 26/24MG TAB PO SCH (09:12)
--- NOTE | 2025-05-31 16:31 | Hospitalist Progress Note ---
Date of Service May 31, 2025 Assessment & Plan (1) Cellulitis of right leg: (2) CAD (coronary artery disease): (3) EILEEN on CPAP: (4) Essential hypertension: (5) COPD (chronic obstructive pulmonary disease): (6) GERD (gastroesophageal reflux disease): (7) Dementia: (8) Prepatellar bursitis of right knee: Plan 85-year-old male presents to the ER with worsening warmth, redness and swelling of right lower extremity. #Cellulitis and prepatellar infected bursitis s/p Right Knee Prepatellar Bursa Incision and Drainage 05/[address] Emanuel Blood cultures negative @ 48 hours 05/26 ER culture sensitive to doxycycline, awaiting sensitivities from surgical culture, if sensitive to doxycycline planning on discharging 28 days of total antibiotics from OR date (last date 06/24/25) - notably failed doxycycline as outpatient but likely because of lack of source control rather than wrong antibiotic and he will have also had a good amount of vancomycin initially as well #Coronary artery disease / Cardiomyopathy / Essential HTN Appreciate cardiology consult Continue ASA, metoprolol, Entresto, simvastatin, ISMN #COPDpatient does not use oxygen or inhalers Monitor respiratory status closely postoperatively #GERD Switched from esomeprazole to pantoprazole per hospital formulary #Dementia without behavioral disturbances/mental health Continue Aricept 10 mg p.o. nightly Continue Namenda 10 mg p.o. twice daily Continue Zoloft 100 mg p.o. every morning Frequent orientation Delirium prevention strategies #EILEEN on CPAP Continue CPAP VTE Prophylaxis - Low dose Eliquis per orthopedic recommendations Disposition - continue on med/surg pending surgical culture sensitivities, planning on acute rehab on discharge Admission and Anticipated Discharge Date Admission Date: May 26, 2025 Subjective No acute concerns or questions from the patient Updated his over the phone - concerns about doxycycline discussed with ID and suspected failure of outpatient treatment due to lack of source control rather than wrong antibiotic Physical Exam Respiratory: normal respiratory effort, lungs clear to auscultation Cardiovascular: RRR, no murmur, no edema Vessels: posterior tibial pulses present (right) and dorsalis pedis pulses present (right) Results & Data Results & Data Vital Signs (Past 12 Hours) Vital Signs Temp Pulse Resp BP Pulse Ox O2 Del Method 05/31/25 15:02 36.8 C 68 18 100/46 L 95 Room Air 05/31/25 07:41 36.5 C 66 16 155/85 H 95 Room Air 05/31/25 07:20 Room Air PG Care Time/CCT Total # of Minutes Spent Total Time Spent with Patient: Total time spent is greater than 50% in coordination of care (as documented) at patient's floor/unit and/or counseling patient: Coding Level of Care Code 51369 SUB INP/OBS CARE 2/35MIN Diagnoses Cellulitis of right leg L03.115 Coronary artery disease involving [place] coronary artery of [place] heart with angina pectoris I25.119 Associated angina: with unspecified angina Coronary Disease-Associated Artery/Lesion type: [place] artery [place] vs. transplanted heart: [place] heart EILEEN on CPAP G47.33; Z99.89 Essential hypertension I10 Chronic obstructive pulmonary disease, unspecified COPD type J44.9 COPD type: unspecified COPD Gastroesophageal reflux disease, esophagitis presence not specified K21.9 Esophagitis presence: esophagitis presence not specified Dementia F03.90 Prepatellar bursitis of right knee M70.41 (2) CAD (coronary artery disease) Associated angina: with unspecified angina Coronary Disease-Associated Artery/Lesion type: [place] artery [place] vs. transplanted heart: [place] heart Qualified Code(s): I25.119 - Atherosclerotic heart disease of [place] coronary artery with unspecified angina pectoris (5) COPD (chronic obstructive pulmonary disease) COPD type: unspecified COPD Qualified Code(s): J44.9 - Chronic obstructive pulmonary disease, unspecified (6) GERD (gastroesophageal reflux disease) Esophagitis presence: esophagitis presence not specified Qualified Code(s): K21.9 - Gastro-esophageal reflux disease without esophagitis
[2025-06-01 07:57] LABS: Creatinine Clr Calc Pharmacy 62.9 ml/min
[2025-06-01] MEDS: DOXYCYCLINE HYCLATE 100 MG CAP PO SCH (10:05)
--- NOTE | 2025-06-01 11:50 | Infectious Disease Progress Nt ---
Date of Service June 01, 2025 Assessment & Plan (1) Prepatellar bursitis of right knee: Plan This is an 85-year-old male with a past medical history of dementia, CAD, status post pacemaker placement, prostate cancer status post prostatectomy, right knee replacement in 2017. COPD, CHF, recently admitted 05/16/2025 - 05/18/2025 for left lower lobe pneumonia, right lower extremity cellulitis with infrapatellar soft tissue swelling. He initially treated with ceftriaxone and doxycycline inpatient with improvement in cellulitis and discharged on doxycycline and Augmentin for 1 week. He presents back to the [facility] ED on 06/15/2025 for evaluation of right knee infection. He has dementia and is a poor historian. History mostly obtained from chart review. It appears he was seen post discharge by his PCP on 05/23/25. He reported that the right lower extremity erythema had returned. Per PCP note, area was erythematous without warmth. He was prescribed another 7 days of doxycycline and Augmentin. He was subsequently evaluated by orthopedics outpatient and noted to have pus draining out of the prepatellar bursa. Swabs obtained of the bursa outpatient grew MRSA. He was sent to the ED for evaluation of prepatellar bursitis. He denied fever, chills, sweats. . He endorsed increasing right knee erythema, edema. In the ED, he was afebrile and hemodynamically stable. Labs: WBC 8.62, ESR 65, BUN 21, creatinine 1.12, lactate 1.6, procalcitonin 0.03. Urinalysis not consistent with infection. MRSA screen positive, C. difficile testing negative, RVP negative. Chest x-ray with no acute cardiopulmonary process with unchanged appearance of the chest. He was evaluated by orthopedic surgery and underwent right knee prepatellar bursa incision and drainage, sharp debridement of skin and subcutaneous fat and prepatellar bursa. Per op report and orthopedic documentation the right total knee is not infected. There was necrotic prepatellar bursa tissue. It was resected and there was no communication with the joint. Cultures were obtained of the bursa in the OR which grew MRSA. In the ED, prior to OR , he received a dose of ceftriaxone and developed hives. Ceftriaxone was discontinued. He was started on Cefepime and Vancomycin. Nikia moreland on IV vancomycin. Infectious disease consulted for prepatellar bursitis. Microbiology: 05/26 OUTPATIENT culture( prepatellar wound )- MRSA ( S VANC, Basia, Doxy, TMP- SMX) 05/27 MRSA nares positive 05/27 C. difficile testing negative 05/27 OR culture (prepatellar bursa tissue) MRSA ( S VANC,dapto, Basia, Doxy, TMP- SMX)) 05/27 OR culture #2 (prepatellar bursa tissue) MRSA Antibiotics Ceftriaxone 10/2 Cefepime 10/2 Vancomycin 10/2current # Right knee MRSA septic pre patellar bursitis, no involvement of prosthetic joint # History of right knee arthroplasty,2017 # Status post biventricular cardiac pacemaker # Sulfa allergyrash # Ceftriaxone allergyrash Discussion: He presents with right knee prepatellar septic bursitis He underwent I&D and removal of necrotic prepatellar tissue in the OR. Per op report/Ortho no communication with the joint. No involvement of the right knee prosthetic. Interoperative cultures growing MRSA. Sensitivities reviewed. Since there is no evidence of prosthetic joint infection he will not need a long-term antibiotic course with suppression. He has recieved ~ 6 d of IV vancomycin from OR date. He can step down to an oral antibiotic with good bioa vailability. He is on and SSRI and plan to treat for > 2 weeks, so Linezolid is not an option. He has a sulfa allergy, so TMP-SMX is not an option. Interoperative MRSA sensitive to doxycycline, which has excellent bioavailability. Since all necrotic tissue removed,s/p source control and has received 6 days of IV vancomycin post OR, will deescalate to doxycycline 100 mg po q12h. Recommendations For MRSA prepatellar bursitis with nearby prosthetic, but prosthetic not infected, plan to treat for 4 weeks total from OR -Will transition from IV vancomycin to doxycycline 100 mg PO q12 as per above . ( 05/27-06/23) -Follow up with orthopedics as scheduled ID will sign off. Please call with questions Rhona Milian MD, MPH Infectious Disease [facility] Call [phone] with questions Admission and Anticipated Discharge Date Admission Date: May 26, 2025 Subjective Subsequent visit was provided via telemedicine using two-way real-time interactive telecommunication between the patient and the telemedicine provider. For the duration of the visit, the provider was performing the assessment from a different facility than the patient. This includesuse of bluetooth stethoscope forauscultationperformed by the telepresenter that the telemedicine provider can hear if described in the physical exam. Food Service Aide contact information: Please call [facility] Center . (Phone Number For Physician Use Only) After establishing a telemedicine visit, patient was: Patient was verified with two unique identifiers and Gave permission to continue telehealth session Time Spent with Patient: Subsequent => 25 min Afebrile. Intraop MRSA susceptibilities reviewed Physical Exam Physical Exam: NAD, sitting up in chair Supple neck AT/NC,Anicteric sclera Non labored breathing on RA Soft abdomen, NT, ND Right knee dressed in immobilizer, no upper thigh or foot edema AAO times 2 Cooperative Results & Data Vital Signs (Past 12 Hours) Vital Signs Temp Pulse Resp BP Pulse Ox O2 Del Method 06/01/25 07:37 36.6 C 80 18 139/71 95 Room Air 06/01/25 07:35 Room Air 06/01/25 04:58 36.9 C 69 16 154/85 H 93 Room Air Laboratory Results 05/26/25 18:55 Aerobic Blood Culture - Final Blood No growth in Aerobic bottle after 5 days. Anaerobic Blood Culture - Final No growth in Anaerobic bottle after 5 days. 05/26/25 19:25 Aerobic Blood Culture - Final Blood No growth in Aerobic bottle after 5 days. Anaerobic Blood Culture - Final No growth in Anaerobic bottle after 5 days. 05/27/25 16:00 Gram Stain - Final Knee,Right Aerobic and Anaerobic Culture - Preliminary Staph aureus MRSA 05/27/25 Unknown Gram Stain - Final Knee,Right Aerobic and Anaerobic Culture - Preliminary Staph aureus MRSA 06/01/25 06:21 Creatinine 1.07 Est Cr Clr Drug Dosing 62.9 eGFR 68.85 Medications Administered Home Medications Medication Instructions Recorded Confirmed Last Taken multivitamin (Daily Multi-Vitamin 1 tab PO DAILY 09/07/20 05/26/25 05/16/25 tablet) donepezil 10 mg tablet 10 mg PO HS 12/03/24 05/26/25 05/15/25 sertraline 100 mg tablet (Zoloft) 100 mg PO QAM #90 tabs 03/09/25 05/26/25 05/16/25 esomeprazole magnesium 40 mg 40 mg PO QPM #90 caps 03/18/25 05/26/25 05/15/25 capsule,delayed release (Nexium) ezetimibe 10 mg-simvastatin 40 mg 1 tab PO HS #90 tabs 03/18/25 05/26/25 05/15/25 tablet (Vytorin) furosemide 40 mg tablet 40 mg PO QAM #90 tabs 03/18/25 05/26/25 05/16/25 metoprolol succinate 50 mg 50 mg PO DAILY #90 tabs 03/18/25 05/26/25 05/16/25 tablet,extended release 24 hr nitroglycerin 0.4 mg sublingual 0.4 mg sublingual DIRECTED PRN 03/18/25 05/26/25 Unknown tablet Chest Pain #25 tabs cholecalciferol (vitamin D3) 25 4,000 unit PO DAILY 04/07/25 05/26/25 05/16/25 mcg (1,000 unit) capsule diaper,brief,adult,disposable #300 ea 04/07/25 05/26/25 Unknown isosorbide mononitrate 60 mg 120 mg PO QAM 04/07/25 05/26/25 05/16/25 tablet,extended release 24 hr reusable chux #10 ea 04/07/25 05/26/25 Unknown aspirin 81 mg tablet,delayed 81 mg PO QAM 05/16/25 05/26/25 05/16/25 release amoxicillin 875 mg-potassium 1 tab PO BID 7 days #14 tabs 05/23/25 05/26/25 Unknown clavulanate 125 mg tablet doxycycline hyclate 100 mg capsule 100 mg PO BID 7 days #14 caps 05/23/25 05/26/25 Unknown sacubitril 24 mg-valsartan 26 mg 1 - 2 tab PO UD 05/26/25 05/26/25 Unknown tablet (Entresto) memantine 10 mg tablet 10 mg PO BID #180 tabs 06/01/25 Unknown Active Medications Generic Name Dose Route Start Last Admin Trade Name Freq PRN Reason Stop Dose Admin Apixaban 2.5 mg 05/28/25 21:00 06/01/25 08:26 Apixaban 2.5 Mg Tab PO 06/27/25 20:59 2.5 mg BID VENICE Administration Aspirin 81 mg 10/06/25 09:00 06/01/25 08:25 Aspirin 81 Mg Ectab PO 06/29/25 08:59 81 mg QAM VENICE Administration Docusate Sodium 100 mg 05/27/25 21:00 06/01/25 08:11 Docusate Sodium 100 Mg Cap PO 06/26/25 20:59 Not Given BID VENICE Donepezil HCl 10 mg 05/27/25 21:00 05/31/25 20:06 Donepezil Hcl 10 Mg Tab PO 06/26/25 20:59 10 mg HS VENICE Administration Doxycycline Hyclate 100 mg 06/01/25 09:00 06/01/25 10:05 Doxycycline Hyclate 100 Mg Cap PO 06/24/25 08:59 100 mg BID VENICE Administration Ezetimibe 10 mg 05/27/25 21:00 05/31/25 20:06 Ezetimibe 10 Mg Tab PO 06/26/25 20:59 10 mg HS VENICE Administration Furosemide 40 mg 05/30/25 09:00 06/01/25 08:26 Furosemide 40 Mg Tab PO 06/29/25 08:59 40 mg QAM VENICE Administration Hydromorphone HCl 0.25 mg 05/27/25 18:29 05/29/25 07:49 Hydromorphone Inj 0.5 Mg/0.5 Ml Syr IV 06/10/25 18:17 0.25 mg Q4H PRN Administration Pain or Pre PT Isosorbide Mononitrate 120 mg 05/27/25 09:00 06/01/25 08:25 Isosorbide [place] Extended Rel 60 Mg Tabcr PO 06/26/25 08:59 120 mg QAM VENICE Administration Ketorolac Tromethamine 15 mg 05/27/25 18:18 05/27/25 18:38 Ketorolac Tromethamine 15 Mg/Ml Vial IV 15 mg Q6H PRN Administration Breakthrough Pain Lactobacillus Acidophilus 1,250 mg 05/28/25 09:00 06/01/25 08:25 Advanced Probiotic 625 Mg Capsule PO 06/27/25 08:59 1,250 mg DAILY VENICE Administration Melatonin 6 mg 05/30/25 22:48 05/31/25 20:10 Melatonin 3 Mg Tab PO 06/29/25 22:47 6 mg HS PRN Administration Sleep Memantine 10 mg 05/27/25 09:00 06/01/25 08:26 Memantine Hcl 10 Mg Tab PO 06/26/25 08:59 10 mg BID VENICE Administration Metoprolol Succinate 50 mg 05/27/25 09:00 06/01/25 08:26 Metoprolol Succ 50mg Ext Rel Tab PO 06/26/25 08:59 50 mg DAILY VENICE Administration Miconazole Nitrate 1 appln 05/30/25 23:25 05/31/25 05:47 Miconazole Nitrate Powder 85 Gm EXT 06/29/25 23:24 1 appln BID PRN Administration Affected Skin Folds Multivitamins 1 tab 05/28/25 09:00 06/01/25 08:25 Multivitamin Tab PO 06/27/25 08:59 1 tab QAM VENICE Administration Pantoprazole Sodium 40 mg 05/27/25 09:00 06/01/25 08:26 Pantoprazole 40 Mg Tab PO 06/26/25 08:59 40 mg DAILY VENICE Administration Sacubitril/Valsartan 0.5 tab 05/31/25 09:00 06/01/25 08:25 Valsartan/Sacubitril 26/24mg Tab PO 06/30/25 08:59 0.5 tab QAM VENICE Administration Sennosides 17.2 mg 05/27/25 21:00 05/31/25 20:06 Senna 8.6 Mg Tab PO 06/26/25 20:59 Not Given HS VENICE Sertraline HCl 100 mg 05/27/25 09:00 06/01/25 08:26 Sertraline Hcl 100 Mg Tablet PO 06/26/25 08:59 100 mg QAM VENICE Administration Simvastatin 40 mg 05/27/25 21:00 05/31/25 20:07 Simvastatin 40 Mg Tab PO 06/26/25 20:59 40 mg HS VENICE Administration Protocol Tramadol HCl 50 - 100 mg 05/27/25 18:18 06/01/25 04:37 Tramadol Hcl 50 Mg Tablet PO 06/26/25 18:17 100 mg Q4H PRN Administration Pain & Pre PT
--- NOTE | 2025-06-01 12:25 | Hospitalist Progress Note ---
Date of Service June 01, 2025 Assessment & Plan (1) Prepatellar bursitis of right knee: (2) Cellulitis of right leg: (3) CAD (coronary artery disease): (4) EILEEN on CPAP: (5) Essential hypertension: (6) COPD (chronic obstructive pulmonary disease): (7) Dementia: Plan 85-year-old male presents to the ER with worsening warmth, redness and swelling of right lower extremity. #Cellulitis | Prepatellar infected bursitis s/p Right Knee Prepatellar Bursa Incision and Drainage 05/[address] Emanuel Blood cultures negative > 48 hours OR culture sensitive to doxycycline - IV Vancomycin discontinued and started Doxycycline 100 mg BID 06/01 - ID consulted - continue antibiotics through 06/23 for MRSA prepatellar bursitis with nearby prosthetic, but prosthetic not infected. Notably failed doxycycline as outpatient but likely because of lack of source control rather than wrong antibiotic and he will have also had a good amount of vancomycin initially as well #Coronary artery disease / Cardiomyopathy / Essential HTN Appreciate cardiology consult for preop assessment Continue ASA, metoprolol, Entresto, simvastatin, ISMN #COPDpatient does not use oxygen or inhalers Monitor respiratory status closely postoperatively #GERD Switched from esomeprazole to pantoprazole per hospital formulary #Dementia without behavioral disturbances/mental health Continue Aricept 10 mg p.o. nightly Continue Namenda 10 mg p.o. twice daily Continue Zoloft 100 mg p.o. every morning Frequent orientation Delirium prevention strategies #EILEEN on CPAP Continue CPAP VTE Prophylaxis - Low dose Eliquis per orthopedic recommendations Disposition - anticipate discharge to [facility] on 06/03 Discontinued vancomycin Started doxycycline Updated at bedside Admission and Anticipated Discharge Date Admission Date: May 26, 2025 Supervising Physician Co-Signing Physician Notes PA Supervision Note: I did not personally see or examine the patient today, but I verified all daniels points of BOUBACAR Jara's assessment and plan with the following exceptions/additions: None Subjective Patient seen and evaluated in the bedside chair. He reports feeling well overall. He has mild right knee pain that is well-controlled with medications. He is sleeping well at night and has a good appetite. RN reports he has been experiencing loose stools yesterday and today, but his BMs are not very frequent. He was under the impression that he was being discharged today, so his spirits were down when I informed him that [facility] cannot accept [facility] until Friday. He notes "it is what it is though and I will get through this." He denies any additional complaints or concerns at this time. Return to bedside in afternoon to update patient's on current treatment plan and disposition. Physical Exam Physical Exam: General: No acute distress, nondiaphoretic, well-developed, well-nourished. Skin: Warm, dry. No rashes or peripheral edema noted. Cardiac: Well-perfused. Rate in 80s. Pulm: Normal respiratory effort. 95% on room air. Extremities: Right knee in brace. Normal motor and sensory function in LE bilaterally. Neuro: A&O x3. No focal neurological deficits. Results & Data Results & Data Vital Signs (Past 12 Hours) Vital Signs Temp Pulse Resp BP Pulse Ox O2 Del Method 06/01/25 07:37 97.9 F 80 18 139/71 95 Room Air 06/01/25 07:35 Room Air 06/01/25 04:58 98.4 F 69 16 154/85 H 93 Room Air Laboratory Results Reviewed chemistries PG Care Time/CCT Total # of Minutes Spent Total Time Spent with Patient: Total time spent is greater than 50% in coordination of care (as documented) at patient's floor/unit and/or counseling patient: Coding Level of Care Code 43170 SUB INP/OBS CARE 3/50MIN Diagnoses Prepatellar bursitis of right knee M70.41 Cellulitis of right leg L03.115 Coronary artery disease involving [place] coronary artery of [place] heart with angina pectoris I25.119 Associated angina: with unspecified angina Coronary Disease-Associated Artery/Lesion type: [place] artery [place] vs. transplanted heart: [place] heart EILEEN on CPAP G47.33; Z99.89 Essential hypertension I10 Chronic obstructive pulmonary disease, unspecified COPD type J44.9 COPD type: unspecified COPD Dementia F03.90 (3) CAD (coronary artery disease) Associated angina: with unspecified angina Coronary Disease-Associated Artery/Lesion type: [place] artery [place] vs. transplanted heart: [place] heart Qualified Code(s): I25.119 - Atherosclerotic heart disease of [place] coronary artery with unspecified angina pectoris (6) COPD (chronic obstructive pulmonary disease) COPD type: unspecified COPD Qualified Code(s): J44.9 - Chronic obstructive pulmonary disease, unspecified
--- NOTE | 2025-06-02 08:15 | Orthopedic Progress Note ---
Date of Service June 02, 2025 Assessment & Plan (1) Prepatellar bursitis of right knee: Plan: POD #6 s/p Right Knee Prepatellar Bursa Incision and Drainage (Right), sharp debridement of skin and subcutaneous fat and prepatellar bursa ID Consulted, Cultures showing MRSA. DVT with MY/SCD/Eliquis will remain in immobilizer, can loosen in bed if uncomfortable, otherwise on for ambulation. This can be periodically removed under supervision for range of motion of his knee.Patient needs to continue on antibiotics and these need to be adjusted eventually to oral antibiotics doxycycline per infectious disease . Patient needs a follow-up in orthopedic office 2 weeks postoperatively to assess for possible suture removal at that time. Admission and Anticipated Discharge Date Admission Date: May 26, 2025 Subjective Patient evaluated yesterday and had no complaints of pain Physical Exam Musculoskeletal: No significant drainage from incision at all. Erythema has decreased and is no evidence of any recurrent fluid in the prepatellar bursa and no knee effusion. 0 to 90 degrees range of motion without pain. Results & Data Vital Signs (Past 12 Hours) Vital Signs Temp Pulse Resp BP Pulse Ox O2 Del Method 06/02/25 07:30 36.7 C 75 16 131/61 93 Room Air 06/02/25 07:15 36.6 C 72 16 142/76 H 96 Room Air 06/01/25 23:30 37.1 C 77 18 137/68 94 Room Air
[2025-06-02 08:47] LABS: Hematocrit (blood only) 29.7 % (42.0-52.0); Hemoglobin 9.6 g/dl (14.0-18.0); Mean Corpuscular Hemoglobin 26.9 pg (25.0-34.0); Mean Corpuscular Volume 83.2 fL (80.0-100.0); Platelet Count 158 K/uL (130-400); RDW Standard Deviation 42.4 fL (36.4-46.3); Red Blood Count 3.57 M/uL (4.70-6.10); White Blood Count 8.71 K/ul (4.8-10.8)
[2025-06-02 09:03] LABS: Creatinine Clr Calc Pharmacy 73.9 ml/min
--- NOTE | 2025-06-02 14:20 | Hospitalist Progress Note ---
"Date of Service June 02, 2025 Assessment & Plan (1) Prepatellar bursitis of right knee: (2) Cellulitis of right leg: (3) CAD (coronary artery disease): (4) EILEEN on CPAP: (5) Essential hypertension: (6) COPD (chronic obstructive pulmonary disease): (7) Dementia: Plan 85-year-old male presents to the ER with worsening warmth, redness and swelling of right lower extremity. #Cellulitis | Prepatellar infected bursitis s/p Right Knee Prepatellar Bursa Incision and Drainage 05/[address] Emanuel Blood cultures negative > 48 hours OR culture sensitive to doxycycline - IV Vancomycin discontinued and started Doxycycline 100 mg BID 06/01 - ID consulted - continue antibiotics through 06/23 for MRSA prepatellar bursitis with nearby prosthetic, but prosthetic not infected. Notably failed doxycycline as outpatient but likely because of lack of source control rather than wrong antibiotic and he will have also had a good amount of vancomycin initially as well #Coronary artery disease / Cardiomyopathy / Essential HTN Appreciate cardiology consult for preop assessment Continue ASA, metoprolol, Entresto, simvastatin, ISMN #COPDpatient does not use oxygen or inhalers #GERDswitched from esomeprazole to pantoprazole per hospital formulary #Dementia without behavioral disturbances/mental health Continue Aricept 10 mg p.o. nightly Continue Namenda 10 mg p.o. twice daily Continue Zoloft 100 mg p.o. every morning Frequent orientation Delirium prevention strategies #EILEEN on CPAP Continue CPAP HS VTE Prophylaxis - Low dose Eliquis per orthopedic recommendations Disposition - anticipate discharge to [facility] on 06/03 if auth is approved Admission and Anticipated Discharge Date Admission Date: May 26, 2025 Supervising Physician Co-Signing Physician Notes BOUBACAR Supervision Note: I did not personally see or examine the patient today, but I verified all daniels points of BOUBACAR Jara's assessment and plan with the following exceptions/addition s: None Subjective Patient seen and evaluated in bedside chair. He reports feeling well overall. He is eager for his to bedside. He reports mild right knee pain at times but notes his pain is well-controlled with medication. No additional complaints or concerns at this time. Physical Exam 2 Physical Exam: General: No acute distress, nondiaphoretic, well-developed, well-nourished. Skin: Warm, dry. No rashes or peripheral edema noted. Cardiac: Well-perfused. Rate in 70s. Pulm: Normal respiratory effort. 93% on room air. Extremities: Right knee in brace. Normal motor and sensory function in LE bilaterally. Neuro: A&O x3, intermittently confused secondary to dementia. No focal neurological deficits. Results & Data Results & Data Vital Signs (Past 12 Hours) Vital Signs Temp Pulse Resp BP Pulse Ox O2 Del Method 06/02/25 07:30 98.1 F 75 16 131/61 93 Room Air 06/02/25 07:15 97.9 F 72 16 142/76 H 96 Room Air Laboratory Results Reviewed CBC Reviewed chemistries PG Care Time/CCT Total # of Minutes Spent Total Time Spent with Patient: Total time spent is greater than 50% in coordination of care (as documented) at patient's floor/unit and/or counseling patient: Coding Level of Care Code 71742 SUB INP/OBS CARE 09/18MIN Diagnoses Prepatellar bursitis of right knee M70.41 Cellulitis of right leg L03.115 Coronary artery disease involving [place] coronary artery of [place] heart with angina pectoris I25.119 Associated angina: with unspecified angina Coronary Disease-Associated Artery/Lesion type: [place] artery [place] vs. transplanted heart: [place] heart EILEEN on CPAP G47.33; Z99.89 Essential hypertension I10 Chronic obstructive pulmonary disease, unspecified COPD type J44.9 COPD type: unspecified COPD Dementia F03.90 (3) CAD (coronary artery disease) Associated angina: with unspecified angina Coronary Disease-Associated Artery/Lesion type: [place] artery [place] vs. transplanted heart: [place] heart Qualified Code(s): I25.119 - Atherosclerotic heart disease of [place] coronary artery with unspecified angina pectoris (6) COPD (chronic obstructive pulmonary disease) COPD type: unspecified COPD Qualified Code(s): J44.9 - Chronic obstructive pulmonary disease, unspecified"
[2025-06-03 07:59] LABS: Creatinine Clr Calc Pharmacy 80.1 ml/min
--- NOTE | 2025-06-03 16:58 | Hospitalist Progress Note ---
"Date of Service June 03, 2025 Assessment & Plan (1) Prepatellar bursitis of right knee: (2) Cellulitis of right leg: (3) CAD (coronary artery disease): (4) EILEEN on CPAP: (5) Essential hypertension: (6) COPD (chronic obstructive pulmonary disease): (7) Dementia: Plan 85-year-old male presents to the ER with worsening warmth, redness and swelling of right lower extremity. #Cellulitis | Prepatellar infected bursitis s/p Right Knee Prepatellar Bursa Incision and Drainage 05/[address] Emanuel Blood cultures negative > 48 hours OR culture sensitive to doxycycline - IV Vancomycin discontinued and started Doxycycline 100 mg BID 06/01 - ID consulted - continue antibiotics through 06/23 for MRSA prepatellar bursitis with nearby prosthetic, but prosthetic not infected. Notably failed doxycycline as outpatient but likely because of lack of source control rather than wrong antibiotic and he will have also had a good amount of vancomycin initially as well #Coronary artery disease / Cardiomyopathy / Essential HTN Appreciate cardiology consult for preop assessment Continue ASA, metoprolol, Entresto, simvastatin, ISMN #COPDpatient does not use oxygen or inhalers #GERDswitched from esomeprazole to pantoprazole per hospital formulary #Dementia without behavioral disturbances/mental health Continue Aricept 10 mg p.o. nightly Continue Namenda 10 mg p.o. twice daily Continue Zoloft 100 mg p.o. every morning Frequent orientation Delirium prevention strategies #EILEEN on CPAP Continue CPAP HS VTE Prophylaxis - Low dose Eliquis per orthopedic recommendations Disposition -authorization denied for SNF at [facility]. Plan to discharge home on 06/05 after can coordinate additional resources at home. Updated at bedside Discussed discharge plan with case management Admission and Anticipated Discharge Date Admission Date: May 26, 2025 Supervising Physician Co-Signing Physician Notes BOUBACAR Supervision Note: I did not personally see or examine the patient today, but I verified all daniels points of BOUBACAR Jara's assessment and plan with the following exceptions/additions: None Subjective Patient seen and evaluated at bedside with his present. He denies any complaints or concerns at this time. He asked for chocolate ice cream, will provide. Discussed with that his authorization for SNF at [facility] was denied. Further discussed with case management and is going to get a recliner for their home to ease transfers. asks for discharge to wait until Friday so she can get everything ready at home. Physical Exam Physical Exam: General: No acute distress, nondiaphoretic, well-developed, well-nourished. Skin: Warm, dry. No rashes or peripheral edema noted. Cardiac: Well-perfused. Rate in 70s. Pulm: Normal respiratory effort. 93% on room air. Extremities: Right knee in brace. Normal motor and sensory function in LE bilaterally. Neuro: A&O x3, intermittently confused secondary to dementia. No focal neurological deficits. Results & Data Results & Data Vital Signs (Past 12 Hours) Vital Signs Temp Pulse Resp BP Pulse Ox O2 Del Method 06/03/25 16:51 98.1 F 66 16 120/69 97 Room Air 06/03/25 11:20 98.4 F 67 16 92/46 L 97 Room Air 06/03/25 08:00 98.6 F 89 16 124/76 93 Room Air 06/03/25 07:43 73 137/73 06/03/25 07:30 Room Air Laboratory Results Reviewed chemistries PG Care Time/CCT Total # of Minutes Spent Total Time Spent with Patient: Total time spent is greater than 50% in coordination of care (as documented) at patient's floor/unit and/or counseling patient: Coding Level of Care Code 92130 SUB INP/OBS CARE 2/35MIN Diagnoses Prepatellar bursitis of right knee M70.41 Cellulitis of right leg L03.115 Coronary artery disease involving [place] coronary artery of [place] heart with angina pectoris I25.119 Associated angina: with unspecified angina Coronary Disease-Associated Artery/Lesion type: [place] artery [place] vs. transplanted heart: [place] heart EILEEN on CPAP G47.33; Z99.89 Essential hypertension I10 Chronic obstructive pulmonary disease, unspecified COPD type J44.9 COPD type: unspecified COPD Dementia F03.90 (3) CAD (coronary artery disease) Associated angina: with unspecified angina Coronary Disease-Associated Artery/Lesion type: [place] artery [place] vs. transplanted heart: [place] heart Qualified Code(s): I25.119 - Atherosclerotic heart disease of [place] coronary artery with unspecified angina pectoris (6) COPD (chronic obstructive pulmonary disease) COPD type: unspecified COPD Qualified Code(s): J44.9 - Chronic obstructive pulmonary disease, unspecified"
[2025-06-03] MEDS: ZOLPIDEM TARTRATE 5 MG TAB PO PRN (22:51)
--- NOTE | 2025-06-04 14:27 | Hospitalist Progress Note ---
Date of Service June 04, 2025 Assessment & Plan (1) Prepatellar bursitis of right knee: (2) Cellulitis of right leg: (3) CAD (coronary artery disease): (4) EILEEN on CPAP: (5) Essential hypertension: (6) COPD (chronic obstructive pulmonary disease): (7) Dementia: Plan 85-year-old male presents to the ER with worsening warmth, redness and swelling of right lower extremity. #Cellulitis | Prepatellar infected bursitis s/p Right Knee Prepatellar Bursa Incision and Drainage 05/[address] Emanuel Blood cultures negative and finalized OR culture sensitive to doxycycline - IV Vancomycin discontinued and started Doxycycline 100 mg BID 06/01 - ID consulted - continue antibiotics through 06/23 for MRSA prepatellar bursitis with nearby prosthetic, but prosthetic not infected. Notably failed doxycycline as outpatient but likely because of lack of source control rather than wrong antibiotic and he will have also had a good amount of vancomycin initially as well #Coronary artery disease / Cardiomyopathy / Essential HTN Appreciate cardiology consult for preop assessment Continue ASA, metoprolol, Entresto, simvastatin, ISMN #COPDpatient does not use oxygen or inhalers #GERDswitched from esomeprazole to pantoprazole per hospital formulary #Dementia without behavioral disturbances/mental health Continue Aricept 10 mg p.o. nightly Continue Namenda 10 mg p.o. twice daily Continue Zoloft 100 mg p.o. every morning Frequent orientation Delirium prevention strategies #EILEEN on CPAP Continue CPAP HS VTE Prophylaxis - Low dose Eliquis per orthopedic recommendations Disposition - Anticipate discharge home with services tomorrow 06/05 Admission and Anticipated Discharge Date Admission Date: May 26, 2025 Supervising Physician Co-Signing Physician Notes BOUBACAR Supervision Note: I did not personally see or examine the patient today, but I verified all daniels points of BOUBACAR Jara's assessment and plan with the following exceptions/additions: None Subjective Patient seen and evaluated at bedside. Upon entering the room, found patient with a urine soaked towel on his lap. Informed his RN who cleaned him up. He reports feeling "so-so." He further explains that he is feeling depressed about his prolonged hospital stay. He denies any pain today. He is sleeping well at night and has a good appetite. No additional complaints or concerns at this time. Physical Exam Physical Exam: General: No acute distress, nondiaphoretic, well-developed, well-nourished. Skin: Warm, dry. No rashes or peripheral edema noted. Cardiac: Well-perfused. Rate in 70s. Pulm: Normal respiratory effort. 93% on room air. Extremities: Right knee in brace. Normal motor and sensory function in LE bilaterally. Neuro: A&O x3, intermittently confused secondary to dementia. No focal neurological deficits. Results & Data Results & Data Vital Signs (Past 12 Hours) Vital Signs Temp Pulse Resp BP Pulse Ox O2 Del Method 06/04/25 11:36 Room Air 06/04/25 07:00 98.8 F 86 16 145/75 H 92 Room Air PG Care Time/CCT Total # of Minutes Spent Total Time Spent with Patient: Total time spent is greater than 50% in coordination of care (as documented) at patient's floor/unit and/or counseling patient: Coding Level of Care Code 46639 SUB INP/OBS CARE 09/18MIN Diagnoses Prepatellar bursitis of right knee M70.41 Cellulitis of right leg L03.115 Coronary artery disease involving [place] coronary artery of [place] heart with angina pectoris I25.119 Associated angina: with unspecified angina Coronary Disease-Associated Artery/Lesion type: [place] artery [place] vs. transplanted heart: [place] heart EILEEN on CPAP G47.33; Z99.89 Essential hypertension I10 Chronic obstructive pulmonary disease, unspecified COPD type J44.9 COPD type: unspecified COPD Dementia F03.90 (3) CAD (coronary artery disease) Associated angina: with unspecified angina Coronary Disease-Associated Artery/Lesion type: [place] artery [place] vs. transplanted heart: [place] heart Qualified Code(s): I25.119 - Atherosclerotic heart disease of [place] coronary artery with unspecified angina pectoris (6) COPD (chronic obstructive pulmonary disease) COPD type: unspecified COPD Qualified Code(s): J44.9 - Chronic obstructive pulmonary disease, unspecified
[2025-06-04 15:52] VITALS: O2SAT 95
[2025-06-04] MEDS: ACETAMINOPHEN 325 MG TAB PO PRN (19:45)
[2025-06-05 08:18] VITALS: BP 139/67
[2025-06-05 08:27] VITALS: RESP 16; TEMP 98.1
[2025-06-05 14:37] VITALS: PULSE 66
--- NOTE | 2025-06-05 18:40 | Discharge Summary ---
"Discharge Summary Date of Service June 05, 2025 Principal Dx & Hospital Course #1 = Principal Diagnosis (1) Prepatellar bursitis of right knee: (2) Cellulitis of right leg: (3) CAD (coronary artery disease): (4) EILEEN on CPAP: (5) Essential hypertension: (6) COPD (chronic obstructive pulmonary disease): (7) Dementia: Plan 85-year-old male presented to the ER with worsening warmth, redness and swelling of right lower extremity. #Cellulitis | Prepatellar infected bursitis s/p Right Knee Prepatellar Bursa Incision and Drainage 05/[address] Emanuel - Must wear right knee immobilizer with ambulation Blood cultures negative and finalized OR culture sensitive to doxycycline - IV Vancomycin discontinued and started Doxycycline 100 mg p.o. BID 06/01 - ID consulted - continue antibiotics through 06/23 for MRSA prepatellar bursitis with nearby prosthetic, but prosthetic not infected. Notably failed doxycycline as outpatient but likely because of lack of source control rather than wrong antibiotic and he will have also had a good amount of vancomycin initially as well #Coronary artery disease / Cardiomyopathy / Essential HTN Appreciate cardiology consult for preop assessment Continue ASA, metoprolol, Entresto, simvastatin, ISMN #COPDpatient does not use oxygen or inhalers #GERDcontinue PPI #Dementia without behavioral disturbances/mental health Continue Aricept 10 mg p.o. nightly Continue Namenda 10 mg p.o. twice daily Continue Zoloft 100 mg p.o. every morning Frequent orientation Delirium prevention strategies #EILEEN on CPAP Continue CPAP HS VTE Prophylaxis - Low dose Eliquis per orthopedic recommendations Disposition - Discharged home with resumption of HH services 06/05 Notes For Next Care Provider Medication Changes From Visit Doxycycline 100 mg twice daily through 06/23 Probiotic daily Eliquis 2.5 mg twice daily Admission HPI Per Admitting Provider Elbert Sesay is an 85yo male with history of Hypertension, COPD, atrial fibrillation, coronary artery disease status post stent to RCA in 2009, CABG x 3 vessel in 2012 following complication of attempted RCA PCI at [facility] [place], advanced heart block with [employer] T[employer]IST pacemaker in place, and Alzheimer's dementia, presenting with redness/pain/swelling of right lower extremity. Patient was recently admitted to [facility] from after presenting with several days of weakness and redness of the right knee. He was found to have a left lower lobe pneumonia as well as cellulitis of the right lower extremity. He was managed with IV ceftriaxone and doxycycline and ultimately discharged home on augmentin ([id number] 1 tab p.o. twice daily x 5 days) and doxycycline (100 mg p.o. twice daily x 5 days). Erythema of the right lower extremity noted to be improved and patient with full range of motion. Low suspicion for septic joint at time of discharge. Over the last several days, patient has had worsening redness, pain and swelling of the right lower extremity. he was seen by his PCP on 05/23/2025 and noted to have progression of the right lower extremity cellulitis. He was restarted on Augmentin and doxycycline with plans to follow-up in 1 week. He has had some nausea as well as chills and fatigue. Otherwise denies chest pain, new or worsening shortness of breath, fevers, chills, rigors, abdominal pain, vomiting, diarrhea, edema, orthopnea (although he cannot lay flat due to kyphoscoliosis) In the ER patient is afebrile, hemodynamically stable and nontoxic in appearance. He was administered a dose of ceftriaxone And subsequently developed hives. No shortness of breath or wheeze. Ceftriaxone was discontinued and patient was administered IV Benadryl with improvement in his symptoms. Of note, he did receive this medication during his last hospitalization without difficulty. Discharge Exam General: No acute distress, nondiaphoretic, well-developed, well-nourished. Skin: Warm, dry. No rashes or peripheral edema noted. Cardiac: Well-perfused. Rate in 70s. Pulm: Normal respiratory effort. 93% on room air. Extremities: Right knee in immobilizer. Normal motor and sensory function in LE bilaterally. Neuro: A&O x3, intermittently confused secondary to dementia. No focal neurological deficits. Discharge Plan Discharge Items Patient Disposition: Home - Home Health Services Reason For Visit: RIGHT KNEE INFECTION Discharge Diagnosis: MRSA prepatellar bursitis with nearby prosthetic Condition on Discharge: Fair Activity: Per Instructions section Weightbearing: Right weightbearing Weightbearing Comment: As tolerated on right lower extremity with knee immobilizer in place. Non-emergency contact: Primary Care Provider and Surgeon Call non-emergency contact if: you have any medication questions, your symptoms worsen, your pain is not controlled and you have a fever Follow-up/Referrals: Jefferson Yee CRNP [Primary Care Provider] - (Follow-up in 1-2 weeks) Juanpablo Emanuel MD [Surgeon] - (Call to schedule a follow-up for 2 weeks from surgery.) Diet: Regular Addtl Attending Provider Instructions: Mr. Sesay, You were admitted to the hospital with prepatellar infected bursitis of your right knee and cellulitis. You had a right knee prepatellar bursa incision and drainage on 05/[address] Emanuel. You were also evaluated by the infectious disease doctor who laid out your antibiotic regimen. You are now medically stab le for discharge back home. Home health services will resume on discharge. Upon discharge from the hospital: * Take doxycycline 100 mg twice daily through 06/23. This is to treat your MRSA prepatellar bursitis. This is an extended antibiotic course since you have a nearby prosthetic. Since the prosthetic is not infection, you do not need long-term suppressive antibiotic therapy. Oral antibiotics can cause GI side effects. I recommend taking this antibiotic with food or taking a probiotic to prevent nausea/vomiting/diarrhea. I have sent in a prescription for a probiotic that you can take once daily while on antibiotics. Doxycycline specifically can cause photosensitivity, so ensure you wear sunscreen or protective clothing when outside. * You were started on Eliquis 2.5 mg twice daily to prevent blood clots from forming following your surgical procedure. * Follow the additional instructions from your orthopedic team listed below. * Follow-up with orthopedics outpatient in 2 weeks from your surgical date. * Follow-up with your PCP in 1-2 weeks. Please return to the hospital if you experience any of the following: Fever of 100.4 F or higher while on antibiotics, severe or worsening joint pain, inability to tolerate oral intake, chest pain, difficulty breathing, confusion, passing out, or any other symptoms concerning for you. It was a pleasure taking care of you while you were in the hospital! 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 If the patient is ambulating, he must wear the knee immobilizer on the right lower extremity. He may weight-bear as tolerated on the right lower extremity with the immobilizer in place. If at rest, the immobilizer may be removed for gentle range of motion of the right knee. Continue doxycycline 100 mg twice daily for 4 weeks as recommended by infectious disease. The patient will follow-up with Dr. Emanuel or his PA approximately 2 weeks after surgery. The patient or family will need to call to make the first follow-up appointment. Pending Studies at Discharge: No Stand-Alone Forms: My [facility] [employer], Smoking Cessation Medications and DC Order Prescriptions: New doxycycline hyclate 100 mg Capsule 100 mg PO BID Qty: 39 0RF Eliquis 2.5 mg Tablet 2.5 mg PO BID Qty: 60 0RF memantine 10 mg Tablet 10 mg PO BID Qty: 30 0RF Advanced Probiotic 625 mg (10 billion cell) Capsule 1 cap PO DAILY Qty: 20 0RF Continued sertraline [Zoloft] 100 mg tablet 100 mg PO QAM Qty: 90 3RF memantine 10 mg tablet 10 mg PO BID Qty: 180 3RF multivitamin [Daily Multi-Vitamin] Tablet 1 tab PO DAILY cholecalciferol (vitamin D3) 25 mcg (1,000 unit) capsule 4,000 unit PO DAILY esomeprazole magnesium [Nexium] 40 mg capsule,delayed release(DR/EC) 40 mg PO QPM Qty: 90 3RF ezetimibe-simvastatin [Vytorin 10-40] 10-40 mg tablet 1 tab PO HS Qty: 90 3RF furosemide 40 mg tablet 40 mg PO QAM Qty: 90 3RF metoprolol succinate 50 mg tablet extended release 24 hr 50 mg PO DAILY Qty: 90 3RF nitroglycerin 0.4 mg tablet, sublingual 0.4 mg SL DIRECTED PRN (Reason: Chest Pain) Qty: 25 2RF Rx Instructions: PLACE ONE TABLET UNDER THE TONGUE EVERY 5 MINUTES FOR UP TO 3 DOSES OVER 15 MINUTES IF NEEDED FOR CHEST PAIN isosorbide mononitrate 60 mg tablet extended release 24 hr 120 mg PO QAM (DME) diaper,brief,adult,disposable Misc See Rx Instructions .Route Qty: 300 5RF Rx Instructions: Use up to 10 diapers per day (DME) reusable chux See Rx Instructions .Route .MEDSUPPLY Qty: 10 0RF Rx Instructions: As directed donepezil 10 mg tablet 10 mg PO HS aspirin 81 mg Tablet,Delayed Release (Dr/Ec) 81 mg PO QAM sacubitril-valsartan [Entresto] 24-26 mg tablet 1 - 2 tab PO UD Rx Instructions: take 1 TABLET by mouth in the AM & 1/2 TABLET at BEDTIME per blood pressure Discontinued amoxicillin-pot clavulanate 875-125 mg tablet 1 tab PO BID 7 Days Qty: 14 0RF doxycycline hyclate 100 mg capsule 100 mg PO BID 7 Days Qty: 14 0RF Discharge Orders: Discharge Order (Routine); Ordered 06/05/25 Ordered By: Alina Jara Admission Data Admit Date/Time: 05/26/25 21:21 Attending Provider: Juana Campos Admit Provider: Magalie Ford Primary Care Provider: Jefferson Yee Other Providers: Eddie Bob [facility]; Magalie Ford; Daniel Blackwell; Juanpablo Emanuel; [facility]; [facility] Other Interventions: Discharge Summary Assessment (RN) Last Done: 06/05/25 14:35 Hospital Stay Data Consultations 05/26/25 20:02 ED Decision to Admit Stat 05/26/25 21:21 Consult Cardiology Routine Consult Orthopedic Surgery Routine 05/27/25 16:56 Consult Infectious Diseases Routine Procedures Performed Operation Date: 05/27/25 07:50 Actual Procedures p Right Knee Prepatellar Bursa Incision and Drainage (Right) - Juanpablo Emanuel MD Diagnostic Imagining Performed Chest X-Ray 05/26/25 18:34 EXAM: X-ray chest one-view portable CLINICAL HISTORY: Sepsis PRIORS: 05/16/2025, 04/07/2023 TECHNIQUE: Upright portable AP FINDINGS: Patient is significantly rotated. A left-sided cardiac device noted with multiple leads present and median sternotomy wires, unchanged. No confluent airspace consolidation airspace consolidation. No pleural effusion. Heart size is unchanged. No pneumothorax. Trachea is patent. Osseous structures demonstrate no acute abnormality. No radiopaque foreign body. IMPRESSION: No plain film evidence of an acute cardiopulmonary process with unchanged appearance of the chest. Electronically signed by Jyoti Huston 05-26-2025 7:20 PM Pending Results Patient Have Any Pending Studies at Discharge: No Discharge Instructions Given to Patient (Per Discharging Provider) Mr. Beahan, You were admitted to the hospital with prepatellar infected bursitis of your right knee and cellulitis. You had a right knee prepatellar bursa incision and drainage on 05/[address] Emanuel. You were also evaluated by the infectious disease doctor who laid out your antibiotic regimen. You are now medically stable for discharge back home. Home health services will resume on discharge. Upon discharge from the hospital: * Take doxycycline 100 mg twice daily through 06/23. This is to treat your MRSA prepatellar bursitis. This is an extended antibiotic course since you have a nearby prosthetic. Since the prosthetic is not infection, you do not need long-term suppressive antibiotic therapy. Oral antibiotics can cause GI side effects. I recommend taking this antibiotic with food or taking a probiotic to prevent nausea/vomiting/diarrhea. I have sent in a prescription for a probiotic that you can take once daily while on antibiotics. Doxycycline specifically can cause photosensitivity, so ensure you wear sunscreen or protective clothing when outside. * You were started on Eliquis 2.5 mg twice daily to prevent blood clots from forming following your surgical procedure. * Follow the additional instructions from your orthopedic team listed below. * Follow-up with orthopedics outpatient in 2 weeks from your surgical date. * Follow-up with your PCP in 1-2 weeks. Please return to the hospital if you experience any of the following: Fever of 100.4 F or higher while on antibiotics, severe or worsening joint pain, inability to tolerate oral intake, chest pain, difficulty breathing, confusion, passing out, or any other symptoms concerning for you. It was a pleasure taking care of you while you were in the hospital! Supervising Physician Co-Signing Physician Notes BOUBACAR Supervision Note: I did not personally see or examine the patient today, but I verified all daniels points of BOUBACAR Jara's assessment and plan with the following exceptions/additions: None Total Time Total Time Spent Total Time Spent (In Minutes): Greater than 30 minutes spent completing this discharge process including direct patient care, medication reconciliation, documentation, review of labs and images, and coordination of care. Coding Level of Care Code 57827 INP/OBS DISCH >30 MIN Diagnoses Prepatellar bursitis of right knee M70.41 Cellulitis of right leg L03.115 Coronary artery disease involving pa[place] coronary artery of [place] heart with angina pectoris I25.119 Associated angina: with unspecified angina Coronary Disease-Associated Artery/Lesion type: pa[place] artery [place] vs. transplanted heart: paimi[place] heart EILEEN on CPAP G47.33; Z99.89 Essential hypertension I10 Chronic obstructive pulmonary disease, unspecified COPD type J44.9 COPD type: unspecified COPD Dementia F03.90"
--- NOTE | 2025-06-21 11:57 | Electrocardiogram Report ---
Test Reason : Blood Pressure : */* mmHG Vent. Rate : 69 BPM Atrial Rate : 65 BPM P-R Int : * ms QRS Dur : 148 ms QT Int : 524 ms P-R-T Axes : * -41 99 degrees QTcB Int : 561 ms Poor data quality, interpretation may be adversely affected Ventricular-paced rhythm with occasional Premature ventricular complexes Biventricular pacemaker detected Abnormal ECG When compared with ECG of 26-May-2025 19:11, No significant change was found Confirmed by Daniel Villa ([id number] on 06/21/2025 11:56:30 AM Referred By: REFERRED SELF Confirmed By: Daniel Villa
== END 2025-06-05 15:36 | disposition home health service (06) | DRG 501 ==
LOC: ED 18:17 → SUATTDRO 21:21 → EDINP 21:21 → 3N 05-27 18:20

== ENCOUNTER 2025-08-12 09:32 | Inpatient (IN) ==
--- NOTE | 2025-08-12 09:47 | Emergency Department Note ---
Impression & Plan Altered mental state, Weakness, Cough, Anemia, Elevated troponin ED Provider Note NAME: ANGELINE WEN III AGE: 85 SEX: M : 1940 ARRIVES VIA: Ambulance INFORMANT: [Patient][ems, nursing] ED PROVIDER(S): [Alton Sherwood MD] CHIEF COMPLAINT: Shortness of breath, altered mental state HISTORY OF PRESENT ILLNESS: The patient is an 85-year-old male who has some dementia. He lives with his . As per EMS, the patient has had some dysuria for a few days and then for the last 24 hours or so, there has been some cough and congestion and maybe some shortness of breath. He has been weak. He has had a decline in his mental state. No reported fever. As per EMS, they did give a DuoNeb prior to arrival. Patient really cannot provide any history, he currently has no complaints when asked. Currently, his is not at the bedside. PMHx/PSHx/Social Hx: See Below PHYSICAL EXAM: GENERAL: Patient is in no acute distress. HEENT: No acute trauma, normocephalic atraumatic, mucous membranes moist, no nasal congestion. NECK: No stridor, no adenopathy, no meningismus, trachea is midline. LUNGS: Diminished breath sounds bilaterally with a few scattered crackles bilaterally, no wheezing. No respiratory distress. HEART: No obvious murmur, tachycardic, regular rhythm. ABDOMEN: Soft, nontender, no peritonitis. EXTREMITIES: No cyanosis, full range of motion of all the joints without pain or difficulty. NEUROLOGIC: Moves all extremities, awake, poor historian. SKIN: No jaundice, no diaphoresis. DIFFERENTIAL DIAGNOSIS: Sepsis or bacteremia, bronchitis or pneumonia, UTI, viral illness, among others. EMERGENCY DEPARTMENT PROCEDURES: MEDICAL DECISION MAKING: There is no leukocytosis. A mild anemia was seen although, this appears to be a chronic issue. There was a normal platelet count. No bandemia. No coagulopathy. VBG showed some very subtle CO2 retention. No renal failure or significant electrolyte abnormality. Lactic acid level was not elevated making severe sepsis less likely. There was no concerning liver enzyme elevation. ECG showed a ventricular pacemaker, no obvious ST elevation. Cardiac enzyme testing is slightly elevated, this elevation could be secondary to cardiac injury or mismatch from his dyspnea. Urinalysis does not show findings of infection. Respiratory BioFire was negative. Chest x-ray did not show any obvious focal infiltrate/CHF. Brain CT showed no acute bleed or mass effect. On exam, the patient was confused but moving all extremities. He was not toxic, he was not febrile. The patient received IV saline, 1 L. He was given a DuoNeb, he was given IV Zosyn as antibiotic coverage. The patient presents with a cough and some confusion, he has not been himself and, currently, his is not able to care for him. The patient likely has a bronchitis which has flared his COPD. Given the circumstances and given his presentation, given the troponin elevation, I do think a hospital stay, further workup, monitoring is warranted. I did speak with the patient, his and case management, the on-call hospitalist was consulted. Prior/Outside records/notes reviewed: Today's EMS notes describing his presentation and the transport to the hospital. ECG per my interpretation: Indication was possible sepsis. The ECG shows a ventricular pacemaker with an occasional PVC. The rate is 86. There is no obvious ST elevation. QTc is 521. Continuous Cardiac Monitoring per my interpretation: An order was placed for continuous cardiac monitoring. The monitor shows a rate of 75 with ventricular pacing. Imaging/x-ray results per my interpretation: Chest x-ray shows some chronic change, no pneumonia or CHF. Chronic Medical/Social conditions affecting care: Advanced age, history of dementia. Care/Management discussed with: Case management and the on-call hospitalist. Level of care consideration(s): After review of the information above and other included data: --I believe the patient requires escalation of care to admission DISPOSITION: Admission Past Med/Surg History Problem List Elevated troponin (Acute) Anemia (Acute) Cough (Acute) Weakness (Acute) Altered mental state (Acute) Chronic anemia (Acute) Prepatellar bursitis of right knee (Acute) Valvular heart disease Hypotension Left lower lobe pneumonia Cellulitis of right leg (Acute) Pneumonia (Acute) Chest pain (Acute) Generalized weakness (Acute) Urinary incontinence Fracture of toe of left foot Open wound of great toe Gastroenteritis due to norovirus (~08/28/24) Skin tear of right upper extremity Hyperlipidemia Bradycardia Near syncope Prostate cancer "DIAGNOSIS: Prostate, adenocarcinoma, codi 3 + 3, PSA 7.3, cT1c, group I Prostate Volume by U/S - 26.0 cc PSA Density - 0.280" Right knee DJD Incontinence URINARY Obstructive jaundice CAD (coronary artery disease) H/O atrial flutter Bladder fistula EILEEN on CPAP Essential hypertension COPD (chronic obstructive pulmonary disease) Non-ST elevation (NSTEMI) myocardial infarction GERD (gastroesophageal reflux disease) Dysphagia Depression Mixed conductive and sensorineural hearing loss of right ear with restricted hearing of left ear CHF (congestive heart failure) (Acute) Cardiomyopathy SSS (sick sinus syndrome) Biventricular cardiac pacemaker in situ Atrial fibrillation Frequent unifocal PVCs Iliac aneurysm Dementia Bladder stone Bladder neck contracture Pacemaker lead malfunction Hx of cardiac pacemaker (Chronic) 2/2 SSS/high grade AVB; [employer] implanted 2017 Last pacer check: within the last 6 months had pacer check-early 2022 [place] [facility] [place]. 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 History of urinary incontinence SMA stenosis asymptomatic, "incidental finding" per cardiology A-fib Incidentally noted episodic a.fib/a.flutter on PPM check- on ASA/beta alyssa, cardiology holding on anticoagulation in setting of hematuria Pulmonary HTN Noted per remote hx, Normal est RA and PA pressures per most recent 07/2020 echo CAD (coronary artery disease) S/P CABG x3 (2012), remote hx of cardiac stents x2 (7+ years ago) History of prostate cancer Kyphosis GERD (gastroesophageal reflux disease) controlled Sleep apnea CPAP Hx of myocardial infarction During cardiac cath (2012)- subsequent CABG x3 ("due to perforation of artery during cath") Rosacea Surgical History History of ERCP Hx laparoscopic cholecystectomy S/P CABG x 3 S/P biventricular cardiac pacemaker procedure History of coronary artery bypass graft H/O three vessel coronary artery bypass S/P placement of cardiac pacemaker S/P CABG (coronary artery bypass graft) H/O cystoscopy Hx of bilateral cataract extraction Hx of colonoscopy Hx of tooth extraction History of arthroplasty of right knee History of robot-assisted laparoscopic radical prostatectomy History of cardiac cath Family History Mother Hypertension Breast cancer Father Cardiac disorder Myocardial infarction Denies family history of Clotting disorder Social History Smoking Status: Never smoker Tobacco Type: Cigarettes Age Started Using Tobacco: 21; Age Quit Using Tobacco: 48; packs per day: 1; Second Hand Exposure: No; Do You Dip or Chew Tobacco: No; Hx Alcohol Use: Yes Alcohol type: beer Hx Substance Use: No Preferred Language: Kyrgyz Communication Ability: Effective Visual Impairment: Limited Chha Required: No Beliefs That Will Affect Care: None marital status: Current Living Situation: Spouse current occupational status: retired 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 Feels Safe at Home: Yes Childhood Exposure to Second-Hand Smoke: Yes caffeine: No during the past year weight has: decreased > 10 lbs Physical Activity Frequency: Daily Physical Activity Frequency Comment: walks dogs daily Seatbelt Use: always Sunscreen Use: Yes Assistive Devices: CPAP and Walker Allergies Allergies Allergy/AdvReac Type Severity Reaction Status Date / Time Sulfa (Sulfonamide Allergy Mild rash Verified 06/15/25 14:13 Antibiotics) ceftriaxone Allergy Hives Verified 06/15/25 14:13 lisinopril AdvReac Intermediate cough Verified 06/15/25 14:13 metoclopramide AdvReac Intermediate Depression Verified 06/15/25 14:13 oxycodone [From OxyContin] AdvReac Intermediate Hallucinati Verified 06/15/25 14:13 ons ciprofloxacin [From Cipro] AdvReac Unknown see notes Verified 06/15/25 14:13 Home Meds Home Medications Medication Instructions Recorded Confirmed multivitamin (Daily Multi-Vitamin 1 tab PO DAILY 09/07/20 08/12/25 tablet) donepezil 10 mg tablet 10 mg PO HS 12/03/24 08/12/25 cholecalciferol (vitamin D3) 25 4,000 unit PO DAILY 04/07/25 08/12/25 mcg (1,000 unit) capsule isosorbide mononitrate 60 mg 120 mg PO QAM 04/07/25 08/12/25 tablet,extended release 24 hr aspirin 81 mg tablet,delayed 81 mg PO QAM 05/16/25 08/12/25 release sacubitril 24 mg-valsartan 26 mg 0.5 tab PO QAM 05/26/25 08/12/25 tablet (Entresto) diazepam 2 mg tablet 2 mg PO HS anxiety 08/12/25 08/12/25 metoprolol succinate 50 mg 50 mg PO QAM 08/12/25 08/12/25 tablet,extended release 24 hr Previous Rx's Medication Instructions Recorded sertraline 100 mg tablet (Zoloft) 100 mg PO QAM #90 tabs 03/09/25 esomeprazole magnesium 40 mg 40 mg PO QPM #90 caps 03/18/25 capsule,delayed release (Nexium) ezetimibe 10 mg-simvastatin 40 mg 1 tab PO HS #90 tabs 03/18/25 tablet (Vytorin) furosemide 40 mg tablet 40 mg PO QAM #90 tabs 03/18/25 nitroglycerin 0.4 mg sublingual 0.4 mg sublingual DIRECTED PRN 03/18/25 tablet Chest Pain #25 tabs diaper,brief,adult,disposable #300 ea 04/07/25 reusable chux #10 ea 04/07/25 L.acidop,casei,lactis,rham-B.lact,santos 1 cap PO DAILY #20 caps 06/05/25 625 mg (10 billion cell) capsule (Advanced Probiotic) memantine 10 mg tablet 10 mg PO BID #30 tabs 06/05/25 Wheelchair (Manual) (Manual #1 ea 06/07/25 Wheelchair) CPAP mask with tubing #1 ea 06/15/25 Results & Data (ED) Vital Signs Vital Signs - 24 hr 08/12/25 09:39 08/12/25 09:39 08/12/25 09:42 Temperature 36.9 C Temperature Source Oral Pulse Rate 89 77 Pulse Rate [Apical] Pulse Rhythm Regular Regular Pulse Rhythm [Apical] Pulse Strength Normal Pulse Strength [Apical] Respiratory Rate 20 18 Respiratory Effort / Characteristics Non-Labored Respiratory Depth Normal Respiratory Pattern Regular Blood Pressure 138/83 Blood Pressure [Left Arm] Blood Pressure Mean 101 Blood Pressure Mean [Left Arm] Pulse Oximetry 95 95 97 Oxygen Delivery Method Room Air Room Air Room Air Sepsis Recent Fever Within 48 Hours No Sepsis New/Unexplained Change in Mental Status Yes Sepsis Action Taken by Nursing No Action Required 08/12/25 09:42 08/12/25 09:57 08/12/25 10:15 Temperature Temperature Source Pulse Rate Pulse Rate [Apical] 75 71 62 Pulse Rhythm Pulse Rhythm [Apical] Regular Regular Regular Pulse Strength Pulse Strength [Apical] Normal Respiratory Rate 16 16 15 Respiratory Effort / Characteristics Non-Labored Respiratory Depth Normal Normal Normal Respiratory Pattern Blood Pressure Blood Pressure [Left Arm] 133/76 113/65 121/66 Blood Pressure Mean Blood Pressure Mean [Left Arm] 95 81 84 Pulse Oximetry 94 94 92 Oxygen Delivery Method Room Air Room Air Room Air Sepsis Recent Fever Within 48 Hours Sepsis New/Unexplained Change in Mental Status Sepsis Action Taken by Nursing 08/12/25 10:16 08/12/25 10:30 08/12/25 10:45 Temperature Temperature Source Pulse Rate 66 Pulse Rate [Apical] 63 62 Pulse Rhythm Pulse Rhythm [Apical] Regular Regular Pulse Strength Pulse Strength [Apical] Normal Respiratory Rate 18 18 Respiratory Effort / Characteristics Non-Labored Respiratory Depth Normal Normal Respiratory Pattern Blood Pressure Blood Pressure [Left Arm] 119/68 114/61 Blood Pressure Mean Blood Pressure Mean [Left Arm] 85 78 Pulse Oximetry 99 94 Oxygen Delivery Method Room Air Room Air Sepsis Recent Fever Within 48 Hours Sepsis New/Unexplained Change in Mental Status Sepsis Action Taken by Nursing 08/12/25 11:00 08/12/25 11:30 08/12/25 11:45 Temperature Temperature Source Pulse Rate Pulse Rate [Apical] 64 61 72 Pulse Rhythm Pulse Rhythm [Apical] Regular Regular Pulse Strength Pulse Strength [Apical] Respiratory Rate 18 16 18 Respiratory Effort / Characteristics Non-Labored Respiratory Depth Normal Normal Normal Respiratory Pattern Blood Pressure Blood Pressure [Left Arm] 101/58 L 105/51 L 100/70 Blood Pressure Mean Blood Pressure Mean [Left Arm] 72 69 80 Pulse Oximetry 100 93 94 Oxygen Delivery Method Room Air Room Air Room Air Sepsis Recent Fever Within 48 Hours Sepsis New/Unexplained Change in Mental Status Sepsis Action Taken by Nursing 08/12/25 12:00 08/12/25 12:15 08/12/25 12:30 Temperature Temperature Source Pulse Rate Pulse Rate [Apical] 60 64 82 Pulse Rhythm Pulse Rhythm [Apical] Regular Regular Regular Pulse Strength Pulse Strength [Apical] Normal Respiratory Rate 15 16 16 Respiratory Effort / Characteristics Non-Labored Spontaneous Non-Labored Respiratory Depth Normal Normal Normal Respiratory Pattern Regular Blood Pressure Blood Pressure [Left Arm] 100/65 100/58 L 120/70 Blood Pressure Mean Blood Pressure Mean [Left Arm] 76 72 86 Pulse Oximetry 93 93 93 Oxygen Delivery Method Room Air Room Air Room Air Sepsis Recent Fever Within 48 Hours Sepsis New/Unexplained Change in Mental Status Sepsis Action Taken by Nursing 08/12/25 13:00 Temperature Temperature Source Pulse Rate Pulse Rate [Apical] 70 Pulse Rhythm Pulse Rhythm [Apical] Pulse Strength Pulse Strength [Apical] Respiratory Rate 20 Respiratory Effort / Characteristics Respiratory Depth Respiratory Pattern Blood Pressure Blood Pressure [Left Arm] 87/51 L Blood Pressure Mean Blood Pressure Mean [Left Arm] 63 Pulse Oximetry 96 Oxygen Delivery Method Sepsis Recent Fever Within 48 Hours Sepsis New/Unexplained Change in Mental Status Sepsis Action Taken by [facility] Medications Current Medication List: was personally reviewed by me Laboratory Data Attestation: I reviewed the patient's lab results. 08/12/25 09:45 08/12/25 09:45 Lab Results 08/12/25 08/12/25 08/12/25 Range/Units 09:45 09:55 11:53 WBC 6.89 (4.8-10.8) K/ul RBC 4.26 L (4.70-6.10) M/uL Hgb 10.9 L (14.0-18.0) g/dL Hct 34.8 L (42.0-52.0) % MCV 81.7 (80.0-100.0) fL MCH 25.6 (25.0-34.0) pg MCHC 31.3 L (32.0-36.0) g/dL RDW Std Deviation 47.1 H (36.4-46.3) fL RDW Coeff of Ricky 15.8 H (11.5-14.5) % Plt Count 143 (130-400) K/uL MPV 11.0 (9.4-12.4) fL Immature Gran % (Auto) 0.4 % Neut % (Auto) 69.8 % Lymph % (Auto) 14.7 % Stevens % (Auto) 11.5 % Eos % (Auto) 3.2 % Baso % (Auto) 0.4 % Neut # (Auto) 4.81 (1.40-6.50) K/uL Lymph # (Auto) 1.01 L (1.20-3.40) K/uL Stevens # (Auto) 0.79 H (0.11-0.59) K/uL Eos # (Auto) 0.22 (0.00-0.50) K/uL Baso # (Auto) 0.03 (0.00-0.20) K/uL Immature Gran # (Auto) 0.03 (0.01-0.20) K/uL PT 10.8 (9.0-12.0) Seconds INR 1.0 (0.9-1.1) APTT 30 (21-31) Seconds PTT Ratio 1.1 VBG pH 7.35 L (7.36-7.41) VBG pCO2 53 H (38-50) mmHg VBG pO2 22 mmHg VBG HCO3 29 mmol/L VBG O2 Saturation < 60.0 % VBG Base Excess 2.5 mEq/L Sodium 139 (136-145) mmol/L Potassium 3.7 (3.5-5.1) mmol/L Chloride 104 (98-107) mmol/L Carbon Dioxide 28 (21-32) mmol/L Anion Gap 7 (3-11) BUN 21 (6-23) mg/dl Creatinine 0.91 (0.6-1.4) mg/dl Est Cr Clr Drug Dosing 75.2 ml/min eGFR 83.63 BUN/Creatinine Ratio 23.1 H (10-20) Glucose 103 H (70-99(Fasting)) mg/dl Lactate 1.3 (0.4-2.0) mmol/L Calcium 9.4 (8.6-10.3) mg/dl Magnesium 2.0 (1.7-2.4) mg/dl Total Bilirubin 0.5 (0.2-1.0) mg/dl Direct Bilirubin 0.1 (0-0.2) mg/dl AST 13 (13-39) U/L ALT 8 (7-52) U/L Alkaline Phosphatase 70 (34-104) U/L Troponin I High Sens 22.5 H 18.6 (0-20) pg/ml Total Protein 7.7 (6.0-8.3) gm/dl Albumin 4.2 (3.4-5.0) gm/dl Procalcitonin 0.04 (0-0.5) ng/ml Urine Color Yellow Urine Appearance Clear (Clear) Urine pH 6.0 (4.5-7.5) Ur Specific Haskell 1.020 (1.000-1.030) Urine Protein Negative (Negative) Urine Glucose (UA) Negative (Negative) Urine Ketones Negative (Negative) Urine Blood Negative (Negative) Urine Nitrite Negative (Negative) Urine Bilirubin Negative (Negative) Urine Urobilinogen Negative (Negative) Ur Leukocyte Esterase Negative (Negative) Urine Comment Adenovirus (PCR) Not Detected (NotDetected) B. pertussis DNA (PCR) Not Detected (NotDetected) B.parapertussis DNA PCR Not Detected (NotDetected) C. pneumoniae DNA (PCR) Not Detected (NotDetected) Coronavirus OC43 (PCR) Not Detected (NotDetected) Coronavirus HKU1 (PCR) Not Detected (NotDetected) Coronavirus 229E (PCR) Not Detected (NotDetected) SARS-CoV-2 (PCR) Not Detected (NotDetected) Coronavirus NL63 (PCR) Not Detected (NotDetected) Human Metapneumovir PCR Not Detected (NotDetected) Influenza Type A (PCR) Not Detected (NotDetected) Influenza Type B (PCR) Not Detected (NotDetected) M. pneumoniae (PCR) Not Detected (NotDetected) Parainfluenza 1 (PCR) Not Detected (NotDetected) Parainfluenza 2 (PCR) Not Detected (NotDetected) Parainfluenza 3 (PCR) Not Detected (NotDetected) Parainfluenza 4 (PCR) Not Detected (NotDetected) RSV (PCR) Not Detected (NotDetected) Entero/Rhino (PCR) Not Detected (NotDetected) Administered Medications Lactated Ringer's (Lr) 1,000 mls @ 100 mls/hr IV .Q10H VENICE Stop: 08/15/25 15:29 Last Admin: 08/12/25 15:36 Dose: 100 mls/hr Documented By: [facility] Discontinued Medications Albuterol (Albut/Ipratrop 3mg/0.5mg Neb 3 Ml Vial) 3 ml NEB NOW STA; Protocol Stop: 08/12/25 10:24 Last Admin: 08/12/25 10:29 Dose: 3 ml Documented By: TDM Sodium Chloride (Nss) 500 mls @ 999 mls/hr IV .Q31M VENICE Stop: 08/12/25 10:15 Last Infusion: 08/12/25 10:59 Dose: Infused Documented By: Admin: 08/12/25 10:05 Dose: 999 mls/hr Documented By: TDM Piperacillin Sod/Tazobactam Sod (Zosyn) 4.5 gm in 100 mls @ 200 mls/hr IV NOW STA Stop: 08/12/25 10:11 Last Infusion: 08/12/25 10:59 Dose: Infused Documented By: Admin: 08/12/25 10:29 Dose: 200 mls/hr Documented By: TDM Sodium Chloride (Nss) 500 mls @ 999 mls/hr IV .Q31M ONE Stop: 08/12/25 12:43 Last Infusion: 08/12/25 13:01 Dose: Infused Documented By: Admin: 08/12/25 12:22 Dose: 999 mls/hr Documented By: TDM Imaging Data Radiologist's Impression: Chest X-Ray 08/12/25 09:42 SINGLE VIEW CHEST CLINICAL HISTORY: Sepsis. FINDINGS: 2 AP, portable, upright chest radiographs are compared to study dated 05/26/2025 and correlated with chest CT dated 10/22/2019. The examination is degraded by portable technique and patient rotation. The patient is status post midline sternotomy. A 3-lead cardiac AICD is unchanged in position. The heart is enlarged noting atherosclerotic calcification of the thoracic aorta. A left- sided arch is incidentally noted. The pulmonary vasculature is noncongested. Chronic interstitial thickening is similar to previous. Question trace pleural effusions. Atelectasis is seen at the lung bases. No airspace consolidation typical for pneumonia or pneumothorax is seen. The skeletal structures are osteopenic. There are chronic/healed right-sided rib fractures. Compression deformities are noted in the thoracic spine. IMPRESSION: 1. Cardiomegaly and AICD without radiographic evidence of congestive failure. 2. Question trace pleural effusions. 3. No airspace consolidation is seen typical for pneumonia. ACT 112: Negative or not required by law. Electronically signed by: Alton Joseph M.D. 08/12/2025 10:[address] 08/12/25 10:59 CT SCAN OF THE BRAIN WITHOUT IV CONTRAST CLINICAL HISTORY: Change in mental status. COMPARISON STUDY: CT of the brain dated 03/07/2020 TECHNIQUE: Unenhanced CT scan of the brain is performed from the vertex to the skull base. Images are reviewed in the axial, sagittal, coronal planes. A dose lowering technique was utilized adhering to the principles of ALARA. The patient was scanned twice due to motion artifact. CT DOSE: 2548.98 mGy.cm FINDINGS: Brain parenchyma: There is age-related involutional change noting moderate subcortical and periventricular microangiopathic disease. There is no hemorrhage, mass effect, or evidence of acute territorial ischemia by CT criteria. Carranza-white matter differentiation is preserved. No extra-axial fluid collection is seen. Ventricles, sulci, cisterns: Prominent secondary to involutional change. Intracranial vasculature: There is atherosclerotic calcification of the cavernous carotid and vertebral arteries. Calvarium: Unremarkable. Sinuses and mastoids: The visualized paranasal sinuses are clear. The mastoid air cells are well pneumatized. Orbits: The bony orbits are grossly intact. There are bilateral ocular lens implants. IMPRESSION: There is no hemorrhage, mass effect, or evidence of acute territorial ischemia by CT criteria. ACT 112: Negative or not required by law. Electronically signed by: Alton Joseph M.D. 08/12/2025 11:34 AM Discharge Plan Visit Data Chief Complaint: Shortness of Breath/Dyspnea Stated Complaint: CONFUSION, SOB ED Provider: Alton Sherwood Discharge Problem: Altered mental state, Weakness, Cough, Anemia, Elevated troponin Patient Disposition: Admitted As Inpatient Condition: Fair Discharge Instructions Interventions: ED Discharge Assessment Last Done: 08/12/25 16:25 Discharge Problem: Altered mental state Qualifiers: Altered mental status type: disorientation Qualified Code(s): R41.0 - Disorientation, unspecified Cough Qualifiers: Cough type: acute Qualified Code(s): R05.1 - Acute cough Anemia Qualifiers: Anemia type: unspecified type Qualified Code(s): D64.9 - Anemia, unspecified
[2025-08-12] MEDS: SODIUM CHLORIDE 0.9% 500 ML IV SCH (10:05)
[2025-08-12 10:07] LABS: Appearance Urine Clear (Clear); Glucose Urine UA Negative (Negative)
[2025-08-12 10:20] LABS: Base Excess VBG 2.5 mEq/L; HCO3 VBG 29 mmol/L; Oxygen Saturation VBG < 60.0 %; PCO2 VBG 53 mmHg (38-50); PO2 VBG 22 mmHg; pH VBG 7.35 (7.36-7.41)
--- NOTE | 2025-08-12 10:25 | XRay Report ---
SINGLE VIEW CHEST CLINICAL HISTORY: Sepsis. FINDINGS: 2 AP, portable, upright chest radiographs are compared to study dated 05/26/2025 and correla basilio with chest CT dated 10/22/2019. The examination is degraded by portable technique and patient rota tion. The patient is status post midline sternotomy. A 3-lead cardiac AICD is unchanged in position. The heart is enlarged noting atherosclerotic calcification of the thoracic aorta. A left-sided arch is incidentally noted. The pulmonary vasculature is noncongested. Chronic interstitial thickening is similar to previous. Question trace pleural effusions. Atelectasis is seen at the lung bases. No airs pace consolidation typical for pneumonia or pneumothorax is seen. The skeletal structures are osteope bertha. There are chronic/healed right-sided rib fractures. Compression deformities are noted in the tho racic spine. IMPRESSION: 1. Cardiomegaly and AICD without radiographic evidence of congestive failure. 2. Question trace pleural effusions. 3. No airspace consolidation is seen typical for pneumonia. ACT 112: Negative or not required by law. Electronically signed by: Alton Joseph M.D. 08/12/2025 10:23 AM
[2025-08-12 10:28] LABS: Hematocrit (blood only) 34.8 % (42.0-52.0); Hemoglobin 10.9 g/dL (14.0-18.0); Immature Granulocytes # (auto) 0.03 K/uL (0.01-0.20); Immature Granulocytes % (auto) 0.4 %; Mean Corpuscular Hemoglobin 25.6 pg (25.0-34.0); Mean Corpuscular Volume 81.7 fL (80.0-100.0); Platelet Count 143 K/uL (130-400); RDW Standard Deviation 47.1 fL (36.4-46.3); Red Blood Count 4.26 M/uL (4.70-6.10); White Blood Count 6.89 K/ul (4.8-10.8)
[2025-08-12] MEDS: ALBUT/IPRATROP 3MG/0.5MG NEB 3 ML VIAL NEB STA (10:29)
[2025-08-12] MEDS: PIPERACILLIN/TAZOBACTAM 4.5 GM/100 ML BAG IV STA (10:29)
[2025-08-12 10:45] LABS: Alanine Aminotransferase 8.0 U/L (7-52); Albumin Level 4.2 gm/dl (3.4-5.0); Alkaline Phosphatase 70.0 U/L (34-104); Anion Gap 7.0 (3-11); Bilirubin,Total 0.5 mg/dl (0.2-1.0); Blood Urea Nitrogen 21.0 mg/dl (6-23); Calcium 9.4 mg/dl (8.6-10.3); Carbon Dioxide 28.0 mmol/L (21-32); Chloride 104.0 mmol/L (98-107); Creatinine Clr Calc Pharmacy 75.2 ml/min; Glucose 103.0 mg/dl (70-99(Fasting)); Magnesium 2.0 mg/dl (1.7-2.4); Potassium 3.7 mmol/L (3.5-5.1); Sodium 139.0 mmol/L (136-145); Total Protein 7.7 gm/dl (6.0-8.3)
[2025-08-12 11:06] LABS: INR 1.0 (0.9-1.1); Partial Thromboplastin Time 30 Seconds (21-31); Prothrombin Time 10.8 Seconds (9.0-12.0)
--- NOTE | 2025-08-12 11:35 | CT Scan Report ---
CT SCAN OF THE BRAIN WITHOUT IV CONTRAST CLINICAL HISTORY: Change in mental status. COMPARISON STUDY: CT of the brain dated 03/07/2020 TECHNIQUE: Unenhanced CT scan of the brain is performed from the vertex to the skull base. Images are reviewed in the axial, sagittal, coronal planes. A dose lowering technique was utilized adhering to the principles of ALARA. The patient was scanned twice due to motion artifact. CT DOSE: 2548.98 mGy.cm FINDINGS: Brain parenchyma: There is age-related involutional change noting moderate subcortical and periventri cular microangiopathic disease. There is no hemorrhage, mass effect, or evidence of acute territorial ischemia by CT criteria. Carranza-white matter differentiation is preserved. No extra-axial fluid collec tion is seen. Ventricles, sulci, cisterns: Prominent secondary to involutional change. Intracranial vasculature: There is atherosclerotic calcification of the cavernous carotid and vertebr al arteries. Calvarium: Unremarkable. Sinuses and mastoids: The visualized paranasal sinuses are clear. The mastoid air cells are well pneu matized. Orbits: The bony orbits are grossly intact. There are bilateral ocular lens implants. IMPRESSION: There is no hemorrhage, mass effect, or evidence of acute territorial ischemia by CT camryn persaud. ACT 112: Negative or not required by law. Electronically signed by: Alton Joseph M.D. 08/12/2025 11:34 AM
[2025-08-12 12:19] LABS: Chlamydia pneumoniae PCR Not Detected (NotDetected); Coronavirus 229E PCR Not Detected (NotDetected); Coronavirus CoV-2 (COVID19)PCR Not Detected (NotDetected); Coronavirus HKU1 PCR Not Detected (NotDetected); Coronavirus NL63 PCR Not Detected (NotDetected); Coronavirus OC43PCR Not Detected (NotDetected); Human Metapneumovirus PCR Not Detected (NotDetected); Parainfluenza Virus 1 PCR Not Detected (NotDetected); Parainfluenza Virus 2 PCR Not Detected (NotDetected); Parainfluenza Virus 3 PCR Not Detected (NotDetected); Parainfluenza Virus 4 PCR Not Detected (NotDetected); Respiratory Syncytial VirusPCR Not Detected (NotDetected); Rhinovirus/Enterovirus PCR Not Detected (NotDetected)
[2025-08-12] MEDS: SODIUM CHLORIDE 0.9% 500 ML IV ONE (12:22)
--- NOTE | 2025-08-12 12:42 | History & Physical Report ---
Date of Service August 12, 2025 Assessment & Plan (1) Altered mental state: (2) Weakness: (3) Cough: Plan Elbert is an 85yo man with PMH including dementia, CAD s/p stenting & 3-vessel CABG (2012), pacemaker placement, ischemic cardiomyopathy/heart failure with reduced EF (last echo 2022 with EF 50-55%, EILEEN, COPD, afib, prostate cancer s/p prostatectomy, and multiple hospital admissions this year for pneumonia x2 and MRSA cellulitis, who presents today with altered mental status. is the primary history and reports sx for about 24 hours. Patient will be admitted for further evaluation of underlying etiology. #AMS #Progressive dementia - Pt with h/o dementia, on donepezil and memantine, presents with 1 day of sleepy/unresponsiveness per - Leading dx would be hypoactive delirium. Possible infectious, metabolic, or toxic/pharmacologic causes - No fevers. No leukocytosis. Lactate 1.3 and procal 0.04. CXR negative. UA negative. Blood cx collected; pending - CT head w/o hemorrhage, mass effect, or evidence of acute territorial ischemia - VBG minimally out of normal range, not likely clinically significant. CMP unremarkable, but does have elevated BUN/Cr. Not overtly dry on exam but cannot r/o as possible trigger. Will start mIVF - LR at 100ml/hr. - No apparent concerns for polypharmacy, but does have diazepam which alone could be a trigger. Will confirm use with - Continue home meds, but hold diazepam. Usual delirium precautions. Would try to avoid meds if pt becomes agitated/aggressive. - Will need PT/OT prior to discharge #COPD, EILEEN - Pt normally w/o wheezing or SOB, no O2 requirement - Continue home regimen. If respiratory sx worsen, consider COPD exacerbation plan (nebs, steroids, azithro) - CPAP at night CAD, Afib - continue metoprolol, aspirin ICM/HFrEF, HTN - continue Entresto, Toprol, ISMN, Lasix GERD - IV Protonix in lieu of omeprazole HLD - continue Vytorin or equivalent Depression - continue sertraline VTE ppx: Lovenox Diet: Dispo: med-tele History of Present Illness Primary Care Provider: Colin Snider, DO No meaningful history obtained from patient, who is sleepy and difficult to arouse. and grandson at bedside. Per , patient had been behaving normally until yesterday. Then, when working with HH PT in the afternoon, he became slightly confused and appeared to be falling asleep. By the evening, he was more somnolent, minimally responding. was unable to move him to bed, and so he slept in their recliner. They live alone together, and she is concerned about her ability to care for him in this state. She notes pt recently had chills, cough, and expiratory wheeze but no fevers, GI sx, change in urinary frequency, rash, trauma, or fall. Per EMS, pt received 1x neb on the way to hospital. In ER, 2x 500ml nss bolus, 4.5g Zosyn, and another neb. His workup has been unremarkable, without evidence of pneumonia, UTI, electrolyte derangement, or acute intracranial abnormality. His initial trop was high at 22.5, but EKG did not show ischemic changes and repeat trop was 18.6. Allergies Allergy/AdvReac Type Severity Reaction Status Date / Time Sulfa (Sulfonamide Allergy Mild rash Verified 06/15/25 14:13 Antibiotics) ceftriaxone Allergy Hives Verified 06/15/25 14:13 lisinopril AdvReac Intermediate cough Verified 06/15/25 14:13 metoclopramide AdvReac Intermediate Depression Verified 06/15/25 14:13 oxycodone [From OxyContin] AdvReac Intermediate Hallucinati Verified 06/15/25 14:13 ons ciprofloxacin [From Cipro] AdvReac Unknown see notes Verified 06/15/25 14:13 Home Medications Medication Instructions Recorded Confirmed Type multivitamin (Daily Multi-Vitamin 1 tab PO DAILY 09/07/20 08/12/25 History tablet) donepezil 10 mg tablet 10 mg PO HS 12/03/24 08/12/25 History sertraline 100 mg tablet (Zoloft) 100 mg PO QAM #90 tabs 03/09/25 08/12/25 Rx esomeprazole magnesium 40 mg 40 mg PO QPM #90 caps 03/18/25 08/12/25 Rx capsule,delayed release (Nexium) ezetimibe 10 mg-simvastatin 40 mg 1 tab PO HS #90 tabs 03/18/25 08/12/25 Rx tablet (Vytorin) furosemide 40 mg tablet 40 mg PO QAM #90 tabs 03/18/25 08/12/25 Rx nitroglycerin 0.4 mg sublingual 0.4 mg sublingual DIRECTED PRN 03/18/25 08/12/25 Rx tablet Chest Pain #25 tabs cholecalciferol (vitamin D3) 25 4,000 unit PO DAILY 04/07/25 08/12/25 History mcg (1,000 unit) capsule diaper,brief,adult,disposable #300 ea 04/07/25 06/15/25 Rx isosorbide mononitrate 60 mg 120 mg PO QAM 04/07/25 08/12/25 History tablet,extended release 24 hr reusable chux #10 ea 04/07/25 06/15/25 Rx aspirin 81 mg tablet,delayed 81 mg PO QAM 05/16/25 08/12/25 History release sacubitril 24 mg-valsartan 26 mg 0.5 tab PO QAM 05/26/25 08/12/25 History tablet (Entresto) L.acidop,casei,lactis,rham-B.lact,santos 1 cap PO DAILY #20 caps 06/05/25 08/12/25 Rx 625 mg (10 billion cell) capsule (Advanced Probiotic) memantine 10 mg tablet 10 mg PO BID #30 tabs 06/05/25 08/12/25 Rx Wheelchair (Manual) (Manual #1 ea 06/07/25 06/15/25 Rx Wheelchair) CPAP mask with tubing #1 ea 06/15/25 06/15/25 Rx diazepam 2 mg tablet 2 mg PO HS anxiety 08/12/25 08/12/25 History metoprolol succinate 50 mg 50 mg PO QAM 08/12/25 08/12/25 History tablet,extended release 24 hr Past Med/Surg History Problem List (Updated 08/12/25 @ 13:04 by Alton Sherwood MD) Elevated troponin (Acute) Anemia (Acute) Cough (Acute) Weakness (Acute) Altered mental state (Acute) Chronic anemia (Acute) Prepatellar bursitis of right knee (Acute) Valvular heart disease Hypotension Left lower lobe pneumonia Cellulitis of right leg (Acute) Pneumonia (Acute) Chest pain (Acute) Generalized weakness (Acute) Urinary incontinence Fracture of toe of left foot Open wound of great toe Gastroenteritis due to norovirus (~08/28/24) Skin tear of right upper extremity Hyperlipidemia Bradycardia Near syncope Prostate cancer "DIAGNOSIS: Prostate, adenocarcinoma, codi 3 + 3, PSA 7.3, cT1c, group I Prostate Volume by U/S - 26.0 cc PSA Density - 0.280" Right knee DJD Incontinence URINARY Obstructive jaundice CAD (coronary artery disease) H/O atrial flutter Bladder fistula EILEEN on CPAP Essential hypertension COPD (chronic obstructive pulmonary disease) Non-ST elevation (NSTEMI) myocardial infarction GERD (gastroesophageal reflux disease) Dysphagia Depression Mixed conductive and sensorineural hearing loss of right ear with restricted hearing of left ear CHF (congestive heart failure) (Acute) Cardiomyopathy SSS (sick sinus syndrome) Biventricular cardiac pacemaker in situ Atrial fibrillation Frequent unifocal PVCs Iliac aneurysm Dementia Bladder stone Bladder neck contracture Pacemaker lead malfunction Hx of cardiac pacemaker (Chronic) 2/2 SSS/high grade AVB; [employer] implanted 2017 Last pacer check: within the last 6 months had pacer check-early 2022 [place] [facility] [place] 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 History of urinary incontinence SMA stenosis asymptomatic, "incidental finding" per cardiology A-fib Incidentally noted episodic a.fib/a.flutter on PPM check- on ASA/beta alyssa, cardiology holding on anticoagulation in setting of hematuria Pulmonary HTN Noted per remote hx, Normal est RA and PA pressures per most recent 07/2020 echo CAD (coronary artery disease) S/P CABG x3 (2012), remote hx of cardiac stents x2 (7+ years ago) History of prostate cancer Kyphosis GERD (gastroesophageal reflux disease) controlled Sleep apnea CPAP Hx of myocardial infarction During cardiac cath (2012)- subsequent CABG x3 ("due to perforation of artery during cath") Rosacea Surgical History History of ERCP Hx laparoscopic cholecystectomy S/P CABG x 3 S/P biventricular cardiac pacemaker procedure History of coronary artery bypass graft H/O three vessel coronary artery bypass S/P placement of cardiac pacemaker S/P CABG (coronary artery bypass graft) H/O cystoscopy Hx of bilateral cataract extraction Hx of colonoscopy Hx of tooth extraction History of arthroplasty of right knee History of robot-assisted laparoscopic radical prostatectomy History of cardiac cath Family History Mother Hypertension Breast cancer Father Cardiac disorder Myocardial infarction Denies family history of Clotting disorder Social History Smoking Status: Never smoker Tobacco Type: Cigarettes Age Started Using Tobacco: 21; Age Quit Using Tobacco: 48; packs per day: 1; Second Hand Exposure: No; Do You Dip or Chew Tobacco: No; Hx Alcohol Use: Yes Alcohol type: beer Hx Substance Use: No Preferred Language: Setswana Communication Ability: Effective Visual Impairment: Limited Vice President Quality Required: No Beliefs That Will Affect Care: None marital status: Current Living Situation: Spouse 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 Physical Exam Physical Exam: Gen: NAD, WD/WN HEENT: NCAT, normal conjunctiva, MMM CV: RRR, no m/r/g, normal S1/S2, no LE edema Resp: Exam limited by patient positioning but no notable wheeze, breathing unlabored Abd: Soft, NT/ND, +BS MSK: No gross deformities on inspection Skin: Warm, dry, well-perfused, multiple ecchymoses on b/l UE Neuro: Somnolent, PERRL, moves all extremities Results & Data Results & Data Vital Signs (Past 12 Hours) Vital Signs Temp Pulse Pulse Resp BP BP Pulse Ox 08/12/25 12:30 82 16 120/70 93 08/12/25 12:15 64 16 100/58 L 93 08/12/25 12:00 60 15 100/65 93 08/12/25 11:45 72 18 100/70 94 08/12/25 11:30 61 16 105/51 L 93 08/12/25 11:00 64 18 101/58 L 100 08/12/25 10:45 62 18 114/61 94 08/12/25 10:30 63 18 119/68 99 08/12/25 10:16 66 08/12/25 10:15 62 15 121/66 92 08/12/25 09:57 71 16 113/65 94 08/12/25 09:42 75 16 133/76 94 08/12/25 09:42 77 18 97 08/12/25 09:39 95 08/12/25 09:39 36.9 C 89 20 138/83 95 O2 Del Method 08/12/25 12:30 Room Air 08/12/25 12:15 Room Air 08/12/25 12:00 Room Air 08/12/25 11:45 Room Air 08/12/25 11:30 Room Air 08/12/25 11:00 Room Air 08/12/25 10:45 Room Air 08/12/25 10:30 Room Air 08/12/25 10:16 08/12/25 10:15 Room Air 08/12/25 09:57 Room Air 08/12/25 09:42 Room Air 08/12/25 09:42 Room Air 08/12/25 09:39 Room Air 08/12/25 09:39 Room Air Supervising Physician Co-Signing Physician Notes I personally examined the patient and verified all daniels points of history and exam, discussed case, and agree with decision making with Dr Thibodeaux confused, no meaningful HPI or ROS obtainable. not present - was present for dr thibodeaux's interview vitals noted nad heent nc at mmm lungs cta no r/r/w good effort no accessory muscles skin no rashes no pallor or icterus altered mental status - delirium superimposed on dementia vs worsening dementia -if delirium - ?dehydration vs benzodiazepine ADR/med side effect? -IV fluids, supportive care -PT/OT -follow clinically otherwise as above Resident Activity Tracking Resident Involvement: Resident Care Provided Care Provided: Adult Hospital Medicine (1) Altered mental state Altered mental status type: disorientation Qualified Code(s): R41.0 - Disorientation, unspecified (3) Cough Cough type: acute Qualified Code(s): R05.1 - Acute cough
[2025-08-12] MEDS: LACTATED RINGER'S 1,000 ML IV SCH (15:36)
--- NOTE | 2025-08-12 16:39 | Billing Data ---
Date of Service August 12, 2025 Coding Level of Care Code 79863 INT INP/OBS CARE
[2025-08-12] MEDS ORDERED: PHA DELIRIUM CONSULT PRN (20:01)
[2025-08-12] MEDS ORDERED: EZETIMIBE/SIMVASTATIN 10/40MG TAB PO SCH (21:00)
[2025-08-12] MEDS: SIMVASTATIN 40 MG TAB PO SCH (21:11)
[2025-08-12] MEDS: EZETIMIBE 10 MG TAB PO SCH (21:11)
[2025-08-12] MEDS: MEMANTINE HCL 10 MG TAB PO SCH (21:11)
[2025-08-12] MEDS: DONEPEZIL HCL 10 MG TAB PO SCH (21:59)
[2025-08-13 07:34] LABS: Hematocrit (blood only) 31.6 % (42.0-52.0); Hemoglobin 10.1 g/dL (14.0-18.0); Mean Corpuscular Hemoglobin 25.8 pg (25.0-34.0); Mean Corpuscular Volume 80.6 fL (80.0-100.0); Platelet Count 134 K/uL (130-400); RDW Standard Deviation 45.8 fL (36.4-46.3); Red Blood Count 3.92 M/uL (4.70-6.10); White Blood Count 6.30 K/ul (4.8-10.8)
[2025-08-13 08:06] LABS: Anion Gap 7.0 (3-11); Blood Urea Nitrogen 15.0 mg/dl (6-23); Calcium 9.0 mg/dl (8.6-10.3); Carbon Dioxide 27.0 mmol/L (21-32); Chloride 105.0 mmol/L (98-107); Creatinine Clr Calc Pharmacy 81.9 ml/min; Glucose 100.0 mg/dl (70-99(Fasting)); Potassium 3.9 mmol/L (3.5-5.1); Sodium 139.0 mmol/L (136-145)
[2025-08-13] MEDS: ISOSORBIDE MONO EXTENDED REL 60 MG TABCR PO SCH (08:21)
[2025-08-13] MEDS: ASPIRIN 81 MG ECTAB PO SCH (08:21)
[2025-08-13] MEDS: METOPROLOL SUCC 50MG EXT REL TAB PO SCH (08:21)
[2025-08-13] MEDS: ENOXAPARIN INJ 40 MG/0.4 ML SYR SQ SCH (08:21)
[2025-08-13] MEDS: VALSARTAN/SACUBITRIL 26/24MG TAB PO SCH (08:22)
[2025-08-13] MEDS: PANTOprazole 40 MG/10 ML SYR IV SCH (08:22)
[2025-08-13] MEDS: SERTRALINE HCL 100 MG TABLET PO SCH (08:22)
[2025-08-13] MEDS ORDERED: FUROSEMIDE 40 MG TAB PO SCH (09:00)
--- NOTE | 2025-08-13 09:22 | Hospitalist Progress Note ---
Date of Service August 13, 2025 Assessment & Plan (1) Altered mental state: (2) Weakness: (3) Cough: Plan Elbert is an 85yo man with PMH including dementia, CAD s/p stenting & 3-vessel CABG (2012), pacemaker placement, ischemic cardiomyopathy/heart failure with reduced EF (last echo 2022 with EF 50-55%, EILEEN, COPD, afib, prostate cancer s/p prostatectomy, and multiple hospital admissions this year for pneumonia x2 and MRSA cellulitis, who presents today with altered mental status. is the primary history and reports sx for about 24 hours. Patient will be admitted for further evaluation of underlying etiology. #AMS #Progressive dementia - Pt with h/o dementia, on donepezil and memantine, presents with 1 day of sleepy/unresponsiveness per - Leading dx would be hypoactive delirium. Possible infectious, metabolic, or toxic/pharmacologic causes - No fevers. No leukocytosis. Lactate 1.3 and procal 0.04. CXR negative. UA negative. Blood cx collected; pending - CT head w/o hemorrhage, mass effect, or evidence of acute territorial ischemia - VBG minimally out of normal range, not likely clinically significant. CMP unremarkable, but does have elevated BUN/Cr. Not overtly dry on exam but cannot r/o as possible trigger. Will start mIVF - LR at 100ml/hr. - No apparent concerns for polypharmacy, but does have diazepam which alone could be a trigger. Will confirm use with - Continue home meds, but hold diazepam. Usual delirium precautions. Would try to avoid meds if pt becomes agitated/aggressive. - Will need PT/OT prior to discharge #COPD, EILEEN - Pt normally w/o wheezing or SOB, no O2 requirement - Continue home regimen. If respiratory sx worsen, consider COPD exacerbation plan (nebs, steroids, azithro) - CPAP at night CAD, Afib - continue metoprolol, aspirin ICM/HFrEF, HTN - continue Entresto, Toprol, ISMN, Lasix GERD - IV Protonix in lieu of omeprazole HLD - continue Vytorin or equivalent Depression - continue sertraline VTE ppx: Lovenox Diet: Dispo: med-tele Admission and Anticipated Discharge Date Admission Date: August 12, 2025 Supervising Physician Co-Signing Physician Notes I personally examined the patient and verified all daniels points of history and exam, discussed case, and agree with decision making with Dr Sanchez seems more alert but definitely hard to gauge veracity of HPI. For what its worth he offers no complaints vitals noted nad heent nc at mmm breathing unlabored no accessory muscle use good effort. Skin without rashes pallor or icterus. altered mental status - delirium superimposed on dementia vs worsening dementia -if delirium - ?dehydration vs benzodiazepine ADR/med side effect? -IV fluids, supportive care -PT/OT -follow clinicallySeems to be improving. - Home versus SNF depending on and PT/OT inputeither way would DC diazepam otherwise as above Subjective Patient seen resting comfortably at bedside this AM. Patient denies acute pain, chest pain, palpitations, SOB, cough, wheeze, abdominal pain, nausea, and vomiting. Patient endorses that he is anxious and is A&Ox2, oriented to name and date, not oriented to age or location. Patient is unsure of events leading to admission and does endorse that he still feels confused. Patient remains afebrile and hemodynamically stable. Physical Exam Physical Exam: General: patient resting comfortably, NAD, non-toxic in appearance, answers questions appropriately. Skin: warm, dry, intact HEENT: NC/AT, anicteric sclera, conjunctiva without injection, moist mucus membranes. Heart: +S1/S2, regular, no m/r/g Lungs: equal air entry bilaterally, no rales/rhonchi/wheezes Abd: +BS, soft, NT/ND Ext: warm, no clubbing/cyanosis or edema Neuro: nonfocal, speech intact, no facial droop, moving all extremities. Results & Data Results & Data Vital Signs (Past 12 Hours) Vital Signs Temp Pulse Pulse Resp BP Pulse Ox O2 Del Method 08/13/25 08:02 36.4 C L 73 20 152/77 H 94 Room Air 08/13/25 07:29 61 08/13/25 06:13 36.4 C L 71 16 147/83 H 95 Room Air 08/12/25 23:50 75 08/12/25 23:35 37.2 C 79 14 133/65 93 Room Air Resident Activity Tracking Resident Involvement: Resident Care Provided Care Provided: Adult Hospital Medicine (1) Altered mental state Altered mental status type: disorientation Qualified Code(s): R41.0 - Disorientation, unspecified (3) Cough Cough type: acute Qualified Code(s): R05.1 - Acute cough
[2025-08-13] MEDS ORDERED: PHA DELIRIUM CONSULT PRN (10:03)
--- NOTE | 2025-08-13 13:00 | Billing Data ---
Date of Service August 13, 2025 Coding Level of Care Code 76493 SUB INP/OBS CARE
[2025-08-13] MEDS: ACETAMINOPHEN 325 MG TAB PO PRN (20:15)
[2025-08-13] MEDS: MELATONIN 3 MG TAB PO PRN (20:15)
[2025-08-13] MEDS: POLYETHYLENE (MIRALAX) 17 GM PACK PO PRN (20:16)
[2025-08-14 09:47] LABS: Hematocrit (blood only) 33.1 % (42.0-52.0); Hemoglobin 10.4 g/dL (14.0-18.0); Mean Corpuscular Hemoglobin 25.1 pg (25.0-34.0); Mean Corpuscular Volume 80.0 fL (80.0-100.0); Platelet Count 146 K/uL (130-400); RDW Standard Deviation 45.2 fL (36.4-46.3); Red Blood Count 4.14 M/uL (4.70-6.10); White Blood Count 7.53 K/ul (4.8-10.8)
--- NOTE | 2025-08-14 09:53 | Hospitalist Progress Note ---
Date of Service August 14, 2025 Assessment & Plan (1) Altered mental state: (2) Weakness: (3) Cough: Plan Elbert is an 85yo man with PMH including dementia, CAD s/p stenting & 3-vessel CABG (2012), pacemaker placement, ischemic cardiomyopathy/heart failure with reduced EF (last echo 2022 with EF 50-55%, EILEEN, COPD, afib, prostate cancer s/p prostatectomy, and multiple hospital admissions this year for pneumonia x2 and MRSA cellulitis, who presents today with altered mental status. is the primary history and reports sx for about 24 hours. Patient will be admitted for further evaluation of underlying etiology. #AMS #Progressive dementia/delirium - Pt with h/o dementia, on donepezil and memantine, presents with 1 day of sleepy/unresponsiveness per - Leading dx would be hypoactive delirium. Possible infectious, metabolic, or toxic/pharmacologic causes - No fevers. No leukocytosis. Lactate 1.3 and procal 0.04. CXR negative. UA negative. Blood cx collected; pending - CT head w/o hemorrhage, mass effect, or evidence of acute territorial ischemia - VBG minimally out of normal range, not likely clinically significant. CMP unremarkable, but does have elevated BUN/Cr. Not overtly dry on exam but cannot r/o as possible trigger. Will start mIVF - LR at 100ml/hr. - No apparent concerns for polypharmacy, but does have diazepam which alone could be a trigger. Will confirm use with - Continue home meds, but hold diazepam. Usual delirium precautions. Would try to avoid meds if pt becomes agitated/aggressive. - Hydroxyzine 25mg QPM effective for anxiety/restlessness overnight, consider starting Buspar 5mg BID for persistent anxiety and fear throughout day of falls, patient is seen holding bed railings tightly throughout day and also while sleeping - PT/OT ordered #COPD, EILEEN - Pt normally w/o wheezing or SOB, no O2 requirement - Continue home regimen. If respiratory sx worsen, consider COPD exacerbation plan (nebs, steroids, azithro) - CPAP at night CAD, Afib - continue metoprolol, aspirin ICM/HFrEF, HTN - continue Entresto, Toprol, ISMN, Lasix GERD - IV Protonix in lieu of omeprazole HLD - continue Vytorin or equivalent Depression - continue sertraline VTE ppx: Lovenox Diet: HH Dispo: med-tele Admission and Anticipated Discharge Date Admission Date: August 12, 2025 Supervising Physician Co-Signing Physician Notes I personally examined the patient and verified all daniels points of history and exam, discussed case, and agree with decision making with Dr Sanchez sleeping comfortably, no meaningful HPI or ROS. PT input noted and appreciated. vitals noted nad heent nc at mmm breathing unlabored no accessory muscle use good effort. Skin without rashes pallor or icterus. altered mental status - delirium superimposed on dementia vs worsening dementia -if delirium - ?dehydration vs benzodiazepine ADR/med side effect? -IV fluids, supportive care -PT/OT eval and treat -follow clinically - Home versus SNF depending on and PT/OT inputeither way would DC diazepam; resident physician considering trial of buspar - reasonable, but risk/benefit nebulous so would want to d/w first otherwise as above Subjective Patient seen resting comfortably at bedside this AM. Patient endorses ongoing anxiety and fear with confusion and being in unfamiliar environment. Patient is unsure of events leading to admission and does endorse that he still feels confused. Patient remains afebrile and hemodynamically stable. Physical Exam Physical Exam: General: patient resting comfortably, NAD, non-toxic in appearance, answers questions appropriately. Skin: warm, dry, intact HEENT: NC/AT, anicteric sclera, conjunctiva without injection, moist mucus membranes. Heart: +S1/S2, regular, no m/r/g Lungs: equal air entry bilaterally, no rales/rhonchi/wheezes Abd: +BS, soft, NT/ND Ext: warm, no clubbing/cyanosis or edema Neuro: nonfocal, speech intact, no facial droop, moving all extremities. Results & Data Results & Data Vital Signs (Past 12 Hours) Vital Signs Temp Pulse Pulse Resp BP Pulse Ox O2 Del Method 08/14/25 07:40 36.4 C L 92 H 18 142/79 H 91 Room Air 08/14/25 07:26 77 08/14/25 01:58 63 08/13/25 23:00 37.3 C 99 H 18 104/61 92 Room Air Resident Activity Tracking Resident Involvement: Resident Care Provided Care Provided: Adult Hospital Medicine (1) Altered mental state Altered mental status type: disorientation Qualified Code(s): R41.0 - Disorientation, unspecified (3) Cough Cough type: acute Qualified Code(s): R05.1 - Acute cough
[2025-08-14 10:06] LABS: Anion Gap 11.0 (3-11); Blood Urea Nitrogen 21.0 mg/dl (6-23); Calcium 9.2 mg/dl (8.6-10.3); Carbon Dioxide 22.0 mmol/L (21-32); Chloride 106.0 mmol/L (98-107); Creatinine Clr Calc Pharmacy 72.4 ml/min; Glucose 126.0 mg/dl (70-99(Fasting)); Potassium 3.7 mmol/L (3.5-5.1); Sodium 139.0 mmol/L (136-145)
--- NOTE | 2025-08-14 13:03 | Billing Data ---
Date of Service August 14, 2025 Coding Level of Care Code 75040 SUB INP/OBS CARE
[2025-08-14] MEDS: busPIRone 5 MG TAB PO SCH (19:28)
[2025-08-15 08:42] LABS: Hematocrit (blood only) 29.4 % (42.0-52.0); Hemoglobin 9.2 g/dL (14.0-18.0); Mean Corpuscular Hemoglobin 25.4 pg (25.0-34.0); Mean Corpuscular Volume 81.2 fL (80.0-100.0); Platelet Count 138 K/uL (130-400); RDW Standard Deviation 46.7 fL (36.4-46.3); Red Blood Count 3.62 M/uL (4.70-6.10); White Blood Count 6.70 K/ul (4.8-10.8)
[2025-08-15 09:01] LABS: Anion Gap 6.0 (3-11); Blood Urea Nitrogen 18.0 mg/dl (6-23); Calcium 8.9 mg/dl (8.6-10.3); Carbon Dioxide 28.0 mmol/L (21-32); Chloride 107.0 mmol/L (98-107); Creatinine Clr Calc Pharmacy 70.6 ml/min; Glucose 103.0 mg/dl (70-99(Fasting)); Potassium 3.6 mmol/L (3.5-5.1); Sodium 141.0 mmol/L (136-145)
--- NOTE | 2025-08-15 12:20 | Hospitalist Progress Note ---
Date of Service August 15, 2025 Assessment & Plan (1) Altered mental state: (2) Weakness: (3) Cough: Plan Elbert is an 85yo man with PMH including dementia, CAD s/p stenting & 3-vessel CABG (2012), pacemaker placement, ischemic cardiomyopathy/heart failure with reduced EF (last echo 2022 with EF 50-55%, EILEEN, COPD, afib, prostate cancer s/p prostatectomy, and multiple hospital admissions this year for pneumonia x2 and MRSA cellulitis, who presented in altered mental status and admitted for observation. #AMS *Progressive dementia/delirium/ IMPROVING 2/2 to Diazepam use on top of worsening Dementia. Metabolic, infective causes ruled out. No leukocytosis. Lactate 1.3 and procal 0.04. CXR negative.CMP unremarkable CT head w/o hemorrhage, mass effect, or evidence of acute territorial ischemia Initial dehydration improved. Plan: Continue holding Diazepam. PT/OT: Following, Continue Inpt Rehab Usual delirium precautions. Would try to avoid meds if pt becomes agitated/aggressive Continue Hydroxyzine 25mg QPM Buspar 5mg BID PT/OT: Following, Continue Inpt Rehab. #COPD, EILEEN -Patient at baseline w/o Oxygen - CPAP at night CAD, Afib - continue metoprolol, aspirin ICM/HFrEF, HTN - continue Entresto, Toprol, ISMN, Lasix GERD - IV Protonix in lieu of omeprazole HLD - continue Vytorin or equivalent Depression - continue sertraline VTE ppx: Lovenox Diet: HH Dispo: OT/PT recs Rehab. to be followed. Admission and Anticipated Discharge Date Admission Date: August 12, 2025 Supervising Physician Co-Signing Physician Notes Resident Physician Supervision Note: I personally examined the patient and verified all daniels points of history and exam, discussed case, and agree with decision making with Dr. Chadd Hoover gentleman in no particular distress was position for eating well was in the room. Did attempt to feed himself. still unsteady about getting up and about. Lungs were clear heart is regular. Continue with the patient towards rehab to improve his anxiety about falling. Using hydroxyzine and BuSpar at the present time but considering other medications. I discussed the case with the resident and agree with the findings and plan as documented in the note. Any exceptions or clarifications are listed here: Documented By: Hemant Lombardi MD Subjective Mr. Sesay was partially awake when I saw him this morning. He replied his correct, however not oriented to time/ place/ person. His nurse did not mention any over the night issues. Patient immediately went back to sleep and was not a good historian. Review of Systems Review of Systems: As per HPI Physical Exam Physical Exam: General: patient resting comfortably, NAD, non-toxic in appearance, answers questions appropriately. Skin: warm, dry, intact HEENT: NC/AT, anicteric sclera, conjunctiva without injection, moist mucus membranes. Heart: +S1/S2, regular, no m/r/g Lungs: equal air entry bilaterally, no rales/rhonchi/wheezes Abd: +BS, soft, NT/ND Ext: warm, no clubbing/cyanosis or edema Neuro: nonfocal, speech intact, no facial droop, moving all extremities. Results & Data Results & Data Vital Signs (Past 12 Hours) Vital Signs Temp Pulse Resp BP Pulse Ox O2 Del Method 08/15/25 11:42 37 C 79 17 105/57 L 94 Room Air 08/15/25 07:48 37.2 C 78 18 145/81 H 93 Room Air 08/15/25 00:25 37.5 C 78 20 147/67 H 92 Room Air Resident Activity Tracking Resident Involvement: Resident Care Provided Care Provided: Adult Hospital Medicine (1) Altered mental state Altered mental status type: disorientation Qualified Code(s): R41.0 - Disorientation, unspecified (3) Cough Cough type: acute Qualified Code(s): R05.1 - Acute cough
--- NOTE | 2025-08-15 14:15 | Electrocardiogram Report ---
Test Reason : Blood Pressure : */* mmHG Vent. Rate : 77 BPM Atrial Rate : 77 BPM P-R Int : * ms QRS Dur : 150 ms QT Int : 470 ms P-R-T Axes : 99 -39 82 degrees QTcB Int : 531 ms A-sensed, Ventricular-paced rhythm Abnormal ECG When compared with ECG of 12-Aug-2025 09:42, (unconfirmed) Vent. rate has decreased by 9 bpm Confirmed by Daniel Villa ([id number]) on 08/15/2025 2:14:32 PM Referred By: REFERRED SELF Confirmed By: Daniel Villa
--- NOTE | 2025-08-15 14:30 | Electrocardiogram Report ---
Test Reason : Blood Pressure : */* mmHG Vent. Rate : 86 BPM Atrial Rate : 79 BPM P-R Int : * ms QRS Dur : 148 ms QT Int : 436 ms P-R-T Axes : * -42 104 degrees QTcB Int : 521 ms Ventricular-paced rhythm with occasional PVCs and fusion beats Biventricular pacemaker detected Abnormal ECG When compared with ECG of 31-May-2025 10:41, Vent. rate has increased by 15 bpm Confirmed by Daniel Villa ([id number]) on 08/15/2025 2:30:10 PM Referred By: REFERRED SELF Confirmed By: Daniel Villa
--- NOTE | 2025-08-15 17:06 | Billing Data ---
Date of Service August 15, 2025 Coding Level of Care Code 85719 SUB INP/OBS CARE
[2025-08-16 05:01] LABS: Hematocrit (blood only) 29.3 % (42.0-52.0); Hemoglobin 9.1 g/dL (14.0-18.0); Mean Corpuscular Hemoglobin 25.0 pg (25.0-34.0); Mean Corpuscular Volume 80.5 fL (80.0-100.0); Platelet Count 132 K/uL (130-400); RDW Standard Deviation 46.0 fL (36.4-46.3); Red Blood Count 3.64 M/uL (4.70-6.10); White Blood Count 6.53 K/ul (4.8-10.8)
[2025-08-16 05:15] LABS: Anion Gap 8.0 (3-11); Blood Urea Nitrogen 20.0 mg/dl (6-23); Calcium 8.9 mg/dl (8.6-10.3); Carbon Dioxide 25.0 mmol/L (21-32); Chloride 106.0 mmol/L (98-107); Creatinine Clr Calc Pharmacy 64.7 ml/min; Glucose 115.0 mg/dl (70-99(Fasting)); Potassium 3.7 mmol/L (3.5-5.1); Sodium 139.0 mmol/L (136-145)
--- NOTE | 2025-08-16 07:04 | Hospitalist Progress Note ---
Date of Service August 16, 2025 Assessment & Plan (1) Altered mental state: (2) Weakness: (3) Cough: Plan Elbert is an 85yo man with PMH including dementia, CAD s/p stenting & 3-vessel CABG (2012), pacemaker placement, ischemic cardiomyopathy/heart failure with reduced EF (last echo 2022 with EF 50-55%, EILEEN, COPD, afib, prostate cancer s/p prostatectomy, and multiple hospital admissions this year for pneumonia x2 and MRSA cellulitis, who presented in altered mental status and admitted for observation. #AMS *Progressive dementia/delirium/ IMPROVING : closer to baselineper 2/2 to Diazepam use on top of worsening Dementia. Metabolic, infective causes ruled out. No leukocytosis. Lactate 1.3 and procal 0.04. CXR negative.CMP unremarkable CT head w/o hemorrhage, mass effect, or evidence of acute territorial ischemia Initial dehydration improved. Plan: Continue holding Diazepam. PT/OT: Following, Continue Inpt Rehab Usual delirium precautions. Would try to avoid meds if pt becomes agitated/aggressive Continue Hydroxyzine 25mg QPM Buspar 5mg BID #COPD, EILEEN -Patient at baseline w/o Oxygen - CPAP at night #Hypotension - 2/2 polypharmacy, poor intake. - BP was really soft yesterday MAP as low as 58 - Held Metoprolol, Entresto and Nitrate. - Will see 24 hours and add sequentially if needed. CAD, Afib - Pt on metoprolol, aspirin ICM/HFrEF, HTN - Pt onEntresto and Toprol ISMN, Lasix GERD - IV Protonix in lieu of omeprazole HLD - continue Vytorin or equivalent Depression - continue sertraline VTE ppx: Lovenox Diet: HH Dispo: OT/PT recs Rehab. prefers to take him to rehab for some time before taking home. Referral sent to [facility] following Admission and Anticipated Discharge Date Admission Date: August 12, 2025 Supervising Physician Co-Signing Physician Notes Resident Physician Supervision Note: I personally examined the patient and verified all daniels points of history and exam, discussed case, and agree with decision making with Dr. Chadd Hoover gentleman in no particular distress was position for eating well was in the room. Did attempt to feed himself. Evaluating for subacute rehabilitation prior to going home. His biggest complaint says he feels that his anxiety. Lungs were clear heart remained regular. Continue with the patient towards rehab to improve his anxiety about falling. Increase his BuSpar to twice daily in addition to Zoloft to try to help his anxiety. Patient may benefit from a sleeping aid such as Seroquel or trazodone. Even at bedtime olanzapine may be considered. I discussed the case with the resident and agree with the findings and plan as documented in the note. Any exceptions or clarifications are listed here: Documented By: Hemant Lombardi MD Subjective Mr. Sesay was lying on edge of bed, holding rale, in scared state calling out nurses for help when I went in to reassess him. He expressed feeling uncomfortable, scared about falling, however denied any pain, headache. He was keeping his eyes closed, but can open them fully when instructed. Pupils were round reactive with normal EOM. Nurse came to bedside, mentioned he had similar situation multiple times during overnight as well. Was reoriented. No new fever, pain anywhere per patient, no burning urine. Review of Systems Review of Systems: As per HPI Physical Exam Physical Exam: General: patient resting comfortably, NAD, non-toxic in appearance, answers questions appropriately. Skin: warm, dry, intact HEENT: NC/AT, anicteric sclera, conjunctiva without injection, moist mucus membranes. Heart: +S1/S2, regular, no m/r/g Lungs: equal air entry bilaterally, no rales/rhonchi/wheezes Abd: +BS, soft, NT/ND Ext: warm, no clubbing/cyanosis or edema Neuro: nonfocal, speech intact, no facial droop, moving all extremities. Results & Data Results & Data Vital Signs (Past 12 Hours) Vital Signs Temp Pulse Pulse Resp BP BP Pulse Ox 08/16/25 03:13 36.9 C 62 18 146/75 H 94 08/16/25 00:28 08/15/25 22:51 37.4 C 97 H 18 120/65 94 08/15/25 21:46 97 H 08/15/25 20:49 117/68 08/15/25 19:55 37.0 C 80 16 99/57 L 95 O2 Del Method 08/16/25 03:13 Room Air 08/16/25 00:28 Room Air 08/15/25 22:51 Room Air 08/15/25 21:46 08/15/25 20:49 08/15/25 19:55 Room Air Resident Activity Tracking Resident Involvement: Resident Care Provided Care Provided: Adult Hospital Medicine (1) Altered mental state Altered mental status type: disorientation Qualified Code(s): R41.0 - Disorientation, unspecified (3) Cough Cough type: acute Qualified Code(s): R05.1 - Acute cough
--- NOTE | 2025-08-16 17:03 | Billing Data ---
Date of Service August 16, 2025 Coding Level of Care Code 08079 SUB INP/OBS CARE
[2025-08-16] MEDS: busPIRone 5 MG TAB PO SCH (21:42)
[2025-08-17] MEDS ORDERED: PHA DELIRIUM CONSULT PRN (02:58)
[2025-08-17 05:59] LABS: Hematocrit (blood only) 29.4 % (42.0-52.0); Hemoglobin 9.5 g/dL (14.0-18.0); Mean Corpuscular Hemoglobin 26.1 pg (25.0-34.0); Mean Corpuscular Volume 80.8 fL (80.0-100.0); Platelet Count 143 K/uL (130-400); RDW Standard Deviation 45.9 fL (36.4-46.3); Red Blood Count 3.64 M/uL (4.70-6.10); White Blood Count 6.27 K/ul (4.8-10.8)
[2025-08-17 06:27] LABS: Anion Gap 7.0 (3-11); Blood Urea Nitrogen 17.0 mg/dl (6-23); Calcium 9.0 mg/dl (8.6-10.3); Carbon Dioxide 27.0 mmol/L (21-32); Chloride 106.0 mmol/L (98-107); Creatinine Clr Calc Pharmacy 66.8 ml/min; Glucose 104.0 mg/dl (70-99(Fasting)); Potassium 4.1 mmol/L (3.5-5.1); Sodium 140.0 mmol/L (136-145)
--- NOTE | 2025-08-17 06:48 | Hospitalist Progress Note ---
Date of Service August 17, 2025 Assessment & Plan (1) Altered mental state: (2) Weakness: (3) Cough: Plan Elbert is an 85yo man with PMH including dementia, CAD s/p stenting & 3-vessel CABG (2012), pacemaker placement, ischemic cardiomyopathy/heart failure with reduced EF (last echo 2022 with EF 50-55%, EILEEN, COPD, afib, prostate cancer s/p prostatectomy, and multiple hospital admissions this year for pneumonia x2 and MRSA cellulitis, who presented in altered mental status. After admission, he was investigated in line of AMS, and metabolic/ infective etiology were ruled out. His overall prevention seems to be 2/2 worsening dementia presenting as delirium predisposed by his age and Valium use. Patient gradually coming back to baseline. #AMS *Progressive dementia/delirium/ IMPROVING : closer to baseline as per 2/2 to Diazepam use on top of worsening Dementia. Metabolic, infective causes ruled out. No leukocytosis. Lactate 1.3 and procal 0.04. CXR negative.CMP unremarkable CT head w/o hemorrhage, mass effect, or evidence of acute territorial ischemia Initial dehydration improved. Plan: Continue holding Diazepam. PT/OT: Following, Continue Inpt Rehab, recommend rehab placement. Usual delirium precautions. Would try to avoid meds if pt becomes agitated/aggressive Continue Hydroxyzine 25mg QPM , Buspar 5mg BID Hydroxyzine 10 mg as QPM PRN. #COPD, EILEEN -Patient at baseline w/o Oxygen -CPAP at night #Hypotension - 2/2 polypharmacy, poor intake. - BP was really soft on 08/15 MAP as low as 58 - Held Metoprolol, Entresto and Nitrate on 08/15. BP improved today, will restart. CAD, Afib - Pt on metoprolol, aspirin ICM/HFrEF, HTN - Pt on Entresto and Toprol ISMN, Lasix GERD - IV Protonix in lieu of omeprazole HLD - continue Vytorin or equivalent Depression - continue sertraline VTE ppx: Lovenox Diet: HH Dispo: OT/PT recs Rehab. prefers to take him to rehab for some time before taking home. Referral sent to [facility] following. Likely rehab tomorrow. Admission and Anticipated Discharge Date Admission Date: August 12, 2025 Supervising Physician Co-Signing Physician Notes Resident Physician Supervision Note: I personally examined the patient and verified all daniels points of history and ex am, discussed case, and agree with decision making with Dr. Chadd Hoover gentleman biggest complaint is anxiety, agreeable to subacute rehabilitation prior to going home. His biggest complaint says he feels that his anxiety. Lungs were clear heart remained regular. Continue with the patient towards rehab to improve his anxiety about falling. Increase his BuSpar to twice daily in addition to Zoloft to try to help his anxiety. Patient may benefit from a sleeping aid such as Seroquel or trazodone. Even at bedtime olanzapine may be considered. I discussed the case with the resident and agree with the findings and plan as documented in the note. Any exceptions or clarifications are listed here: Documented By: Hemant Lombardi MD Subjective Mr. Sseay is in good day today, as he said. He was less anxious, more oriented to time, place and person. He shared my yesterday was really bad day, he was feeling constantly awful. 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 He loved his job he said. When I asked him plan of sending to rehab, he agreed with this. Review of Systems Review of Systems: As per HPI Physical Exam Physical Exam: Constitutional: Well appearing, No acute distress HEENT: Atraumatic, Normocephalic, No conjunctival injection CVS: S1 S2 no murmur, Regular Rhythm, no LE edema Respiratory: BL equal air entry with NVBS. No rhonchi, wheezes, or crackles. No increased work of breathing GI: Soft, Nondistended, Nontender, Normal Bowel sounds + MSK: No gross deformities noted Skin: Warm, Dry, Bruise in his left forearm. Neuro: No Focal deficit Psych: Calmer compared to 08/16, still confused, pleasant, Cooperative on exam Results & Data Results & Data Vital Signs (Past 12 Hours) Vital Signs Temp Pulse Pulse Resp BP Pulse Ox O2 Del Method 08/17/25 03:03 36.6 C 58 L 18 133/83 89 L Room Air 08/17/25 02:49 Room Air 08/17/25 02:44 70 08/16/25 22:47 36.8 C 90 16 133/74 91 Room Air 08/16/25 20:02 37.1 C 114 H 18 148/75 H 94 Room Air Resident Activity Tracking Resident Involvement: Resident Care Provided Care Provided: Adult Hospital Medicine (1) Altered mental state Altered mental status type: disorientation Qualified Code(s): R41.0 - Disorientation, unspecified (3) Cough Cough type: acute Qualified Code(s): R05.1 - Acute cough
--- NOTE | 2025-08-17 17:04 | Billing Data ---
Date of Service August 17, 2025 Coding Level of Care Code 28581 SUB INP/OBS CARE
[2025-08-18 06:36] LABS: Hematocrit (blood only) 31.4 % (42.0-52.0); Hemoglobin 10.1 g/dL (14.0-18.0); Mean Corpuscular Hemoglobin 25.3 pg (25.0-34.0); Mean Corpuscular Volume 78.7 fL (80.0-100.0); Platelet Count 170 K/uL (130-400); RDW Standard Deviation 44.9 fL (36.4-46.3); Red Blood Count 3.99 M/uL (4.70-6.10); White Blood Count 5.54 K/ul (4.8-10.8)
[2025-08-18 07:13] LABS: Anion Gap 10.0 (3-11); Blood Urea Nitrogen 14.0 mg/dl (6-23); Calcium 9.0 mg/dl (8.6-10.3); Carbon Dioxide 24.0 mmol/L (21-32); Chloride 104.0 mmol/L (98-107); Creatinine Clr Calc Pharmacy 74.9 ml/min; Glucose 110.0 mg/dl (70-99(Fasting)); Potassium 3.5 mmol/L (3.5-5.1); Sodium 138.0 mmol/L (136-145)
[2025-08-18] MEDS ORDERED: PHA DELIRIUM CONSULT PRN (10:53)
--- NOTE | 2025-08-18 13:20 | Hospitalist Progress Note ---
Date of Service August 18, 2025 Assessment & Plan (1) Altered mental state: (2) Weakness: (3) Cough: Plan Elbert is an 85yo man with PMH including dementia, CAD s/p stenting & 3-vessel CABG (2012), pacemaker placement, ischemic cardiomyopathy/heart failure with reduced EF (last echo 2022 with EF 50-55%, EILEEN, COPD, afib, prostate cancer s/p prostatectomy, and multiple hospital admissions this year for pneumonia x2 and MRSA cellulitis, who presented in altered mental status. After admission, he was investigated in line of AMS, and metabolic/ infective etiology were ruled out. His overall prevention seems to be 2/2 worsening dementia presenting as delirium predisposed by his age and Valium use. Patient gradually coming back to baseline. #AMS *Progressive dementia/delirium/ IMPROVING : closer to baseline as per 2/2 to Diazepam use on top of worsening Dementia. Metabolic, infective causes ruled out. No leukocytosis. Lactate 1.3 and procal 0.04. CXR negative.CMP unremarkable CT head w/o hemorrhage, mass effect, or evidence of acute territorial ischemia Initial dehydration improved. Plan: Continue holding Diazepam. PT/OT: Following, Continue Inpt Rehab, recommend rehab placement. Usual delirium precautions. Would try to avoid meds if pt becomes agitated/aggressive Continue Buspar 5mg BID for anxiety Hydroxyzine 10 mg as QPM PRN. #COPD, EILEEN -Patient at baseline w/o Oxygen -CPAP at night CAD, Afib - Pt on metoprolol, aspirin ICM/HFrEF, HTN - Pt on Entresto and Toprol ISMN, Lasix GERD - IV Protonix in lieu of omeprazole HLD - continue Vytorin or equivalent Depression - continue sertraline VTE ppx: Lovenox Diet: HH Dispo: OT/PT recs Rehab. prefers to take him to rehab for some time before taking home. Referral sent to [facility], pending pre-auth, pending until friday. Admission and Anticipated Discharge Date Admission Date: August 12, 2025 Subjective Mr. Sesay is in good day today, as he said. Nurse on bedside mentioned he was scared last night like usual, he was scared about falling from bed, holding bed rail and calling nurses. No chest pain, SOB, nausea, cough , fever. Review of Systems Review of Systems: As per HPI Physical Exam Physical Exam: Constitutional: Well appearing, No acute distress HEENT: Atraumatic, Normocephalic, No conjunctival injection CVS: S1 S2 no murmur, Regular Rhythm, no LE edema Respiratory: BL equal air entry with NVBS. No rhonchi, wheezes, or crackles. No increased work of breathing GI: Soft, Nondistended, Nontender, Normal Bowel sounds + MSK: No gross deformities noted Skin: Warm, Dry, Bruise in his left forearm. Neuro: No Focal deficit Psych: Calmer compared to 08/16, still confused, pleasant, Cooperative on exam Results & Data Results & Data Vital Signs (Past 12 Hours) Vital Signs Temp Pulse Pulse Resp BP Pulse Ox O2 Del Method 08/18/25 11:11 36.5 C 74 20 96/60 L 94 Room Air 08/18/25 08:04 36.7 C 75 20 135/79 94 Room Air 08/18/25 08:00 81 08/18/25 03:13 36.9 C 81 18 132/68 92 Room Air Resident Activity Tracking Resident Involvement: Resident Care Provided Care Provided: Adult Hospital Medicine (1) Altered mental state Altered mental status type: disorientation Qualified Code(s): R41.0 - Disorientation, unspecified (3) Cough Cough type: acute Qualified Code(s): R05.1 - Acute cough
[2025-08-18] MEDS: ONDANSETRON INJ 2 MG/ML 2 ML VIAL IV PRN (19:49)
[2025-08-19 07:46] LABS: Hematocrit (blood only) 29.1 % (42.0-52.0); Hemoglobin 9.3 g/dL (14.0-18.0); Mean Corpuscular Hemoglobin 25.9 pg (25.0-34.0); Mean Corpuscular Volume 81.1 fL (80.0-100.0); Platelet Count 152 K/uL (130-400); RDW Standard Deviation 46.6 fL (36.4-46.3); Red Blood Count 3.59 M/uL (4.70-6.10); White Blood Count 5.28 K/ul (4.8-10.8)
[2025-08-19 08:06] LABS: Anion Gap 7.0 (3-11); Blood Urea Nitrogen 16.0 mg/dl (6-23); Calcium 8.9 mg/dl (8.6-10.3); Carbon Dioxide 28.0 mmol/L (21-32); Chloride 105.0 mmol/L (98-107); Creatinine Clr Calc Pharmacy 60.8 ml/min; Glucose 106.0 mg/dl (70-99(Fasting)); Potassium 3.6 mmol/L (3.5-5.1); Sodium 140.0 mmol/L (136-145)
--- NOTE | 2025-08-19 08:41 | Hospitalist Progress Note ---
Date of Service August 19, 2025 Assessment & Plan (1) Altered mental state: (2) Weakness: (3) Cough: Plan Elbert is an 85yo man with PMH including dementia, CAD s/p stenting & 3-vessel CABG (2012), pacemaker placement, ischemic cardiomyopathy/heart failure with reduced EF (last echo 2022 with EF 50-55%, EILEEN, COPD, afib, prostate cancer s/p prostatectomy, and multiple hospital admissions this year for pneumonia x2 and MRSA cellulitis, who presented in altered mental status. After admission, he was investigated in line of AMS, and metabolic/ infective etiology were ruled out. His overall prevention seems to be 2/2 worsening dementia presenting as delirium predisposed by his age and Valium use. Patient gradually coming back to baseline. #AMS *Progressive dementia/delirium/ IMPROVING : closer to baseline as per 2/2 to Diazepam use on top of worsening Dementia. Metabolic, infective causes ruled out. No leukocytosis. Lactate 1.3 and procal 0.04. CXR negative.CMP unremarkable CT head w/o hemorrhage, mass effect, or evidence of acute territorial ischemia Initial dehydration improved. Plan: Continue holding Diazepam. PT/OT: Following, Continue Inpt Rehab, recommend rehab placement. Usual delirium precautions. I opened his curtains this AM, he seems pleased. Easily distractible. Continue distractions Would try to avoid meds if pt becomes agitated/aggressive Continue Buspar 5mg BID for anxiety Hydroxyzine 10 mg as QPM PRN. #COPD, EILEEN -Patient at baseline w/o Oxygen -CPAP at night #Fluctuating Blood pressure - The AM blood pressures are usually low, with intermittent soft BP daytime as well - He is on Metoprolol, Entresto and Imdur. - I believe Imdur dose can be little down titrated. Patient's adamant about staying same dose. She would not want this to change unless capacity planning manager advise. He is on Imdur 120 mg daily in AM. CAD, Afib - Pt on metoprolol, aspirin ICM/HFrEF, HTN - Pt on Entresto and Toprol ISMN, Lasix GERD - IV Protonix in lieu of omeprazole HLD - continue Vytorin or equivalent Depression - continue sertraline VTE ppx: Lovenox Diet: Dispo: OT/PT recs Rehab. prefers to take him to rehab for some time before taking home. Referral sent to [facility], pending pre-Auth, pending until Friday. Admission and Anticipated Discharge Date Admission Date: August 12, 2025 Supervising Physician Co-Signing Physician Notes Resident Physician Supervision Note: I personally examined the patient and verified all daniels points of history and exam, discussed case, and agree with decision making with Dr. Florentino Patient with delirium. Lungs were clear heart remained regular. WIll contiue to hold benzos and monitor patient. Patient will likely be here over the weekend. I discussed the case with the resident and agree with the findings and plan as documented in the note. Any exceptions or clarifications are listed here: Documented By: Acosta Lopez MD Subjective Mr. Sesay continues remain stable. He was eating cookies in bed when I was there. More oriented than before. He could tell me his , place where he lives, and that his family got the ingram fo him. He did not loom scared like few days ago. Nursing did not have overnight concern/ issue about him. No chest pain, SOB, nausea, cough, fever that he admits. I opened his curtains this morning, he seems pleased with this. Case Management following his referral for [facility] Review of Systems Review of Systems: As per HPI Physical Exam Physical Exam: Constitutional: Well appearing, No acute distress HEENT: Atraumatic, Normocephalic, No conjunctival injection CVS: S1 S2 no murmur, Regular Rhythm, no LE edema Respiratory: BL equal air entry with NVBS. No rhonchi, wheezes, or crackles. No increased work of breathing GI: Soft, Nondistended, Nontender, Normal Bowel sounds + MSK: No gross deformities noted Skin: Warm, Dry, Bruise in his left forearm. Neuro: No Focal deficit Psych: Calm, still confused to baseline, but better than before, pleasant, Cooperative on exam Results & Data Results & Data Vital Signs (Past 12 Hours) Vital Signs Temp Pulse Pulse Resp BP Pulse Ox O2 Del Method 08/19/25 08:07 36.7 C 74 18 119/64 95 Nasal Cannula 08/19/25 04:31 36.4 C L 82 16 124/68 93 Nasal Cannula 08/18/25 21:47 74 O2 Flow Rate 08/19/25 08:07 1 08/19/25 04:31 2 08/18/25 21:47 Resident Activity Tracking Resident Involvement: Resident Care Provided Care Provided: Adult Hospital Medicine (1) Altered mental state Altered mental status type: disorientation Qualified Code(s): R41.0 - Disorientation, unspecified (3) Cough Cough type: acute Qualified Code(s): R05.1 - Acute cough
[2025-08-19] MEDS ORDERED: PHA DELIRIUM CONSULT PRN (09:51)
--- NOTE | 2025-08-20 06:55 | Hospitalist Progress Note ---
Date of Service August 20, 2025 Assessment & Plan (1) Altered mental state: (2) Weakness: (3) Cough: Plan Elbert is an 85yo man with PMH including dementia, CAD s/p stenting & 3-vessel CABG (2012), pacemaker placement, ischemic cardiomyopathy/heart failure with reduced EF (last echo 2022 with EF 50-55%, EILEEN, COPD, afib, prostate cancer s/p prostatectomy, and multiple hospital admissions this year for pneumonia x2 and MRSA cellulitis, who presented in altered mental status. After admission, he was investigated in line of AMS, and metabolic/ infective etiology were ruled out. His overall prevention seems to be 2/2 worsening dementia presenting as delirium predisposed by his age and Valium use. Patient gradually coming back to baseline. #AMS *Progressive dementia/delirium/ IMPROVING : closer to baseline as per 2/2 to Diazepam use on top of worsening Dementia. Metabolic, infective causes ruled out. No leukocytosis. Lactate 1.3 and procal 0.04. CXR negative.CMP unremarkable CT head w/o hemorrhage, mass effect, or evidence of acute territorial ischemia Initial dehydration improved. Plan: Continue holding Diazepam. PT/OT: Following, Continue Inpt Rehab, recommend rehab placement. Usual delirium precautions. I opened his curtains this AM, he seems pleased. Easily distractible. Continue distractions Would try to avoid meds if pt becomes agitated/aggressive Continue Buspar 5mg BID for anxiety Hydroxyzine 10 mg as QPM PRN. Hydroxyzine is not a great choice, unfortunately no pharmacological aid is a better choice for him. Family expresses concern of melatonin not helping in his situation, aware of this regimen. It was already started before I started taking care and family would like to continue. Hence I am keeping this on. #COPD, EILEEN -Patient at baseline w/o Oxygen -CPAP at night #Fluctuating Blood pressure - The AM blood pressures are usually low, with intermittent soft BP daytime as well - He is on Metoprolol, Entresto and Imdur. - I believe Imdur dose can be little down titrated. Patient's adamant about staying same dose. She would not want this to change unless physician interventional cardiologist advise. He is on Imdur 120 mg daily in AM. CAD, Afib - Pt on metoprolol, aspirin ICM/HFrEF, HTN - Pt on Entresto and Toprol ISMN, Lasix GERD - IV Protonix in lieu of omeprazole HLD - continue Vytorin or equivalent Depression - continue sertraline VTE ppx: Lovenox Diet: HH Dispo: OT/PT recs Rehab. prefers to take him to rehab for some time before taking home. Referral sent to [facility], pending pre-Auth, pending until Friday. Admission and Anticipated Discharge Date Admission Date: August 12, 2025 Supervising Physician Co-Signing Physician Notes Resident Physician Supervision Note: I personally examined the patient and verified all daniels points of history and exam, discussed case, and agree with decision making with Dr. Florentino Patient with delirium, appears to be improving. Lungs were clear heart remained regular. WIll continue to hold benzos and monitor patient. Patient will be here over the weekend. Vitals remain stable. I discussed the case with the resident and agree with the findings and plan as documented in the note. Any exceptions or clarifications are listed here: Documented By: Acosta Lopez MD Subjective Mr. Sesay continues remain stable. He was sleeping comfortably. Nighttime resident signed out he was transiently off last night, did not need any medications, however, as he was not defensive. He was sleeping comfortably when I was there, arousable but went back to sleep again. Was breathing comfortable. Case Management following his referral for [facility] Review of Systems Review of Systems: As per [facility] Physical Exam Physical Exam: Constitutional: Sleeping comfortably, Well appearing, No acute distress HEENT: Atraumatic, Normocephalic CVS: Well perfused. Respiratory: No increased work of breathing GI: Nondistended MSK: No gross deformities noted Skin: Warm, Dry, Bruise in his left forearm. Neuro: No Focal deficit Psych: Sleeping calm Results & Data Results & Data Vital Signs (Past 12 Hours) Vital Signs Temp Pulse Pulse Resp BP BP Pulse Ox 08/20/25 03:02 36.6 C 69 16 100/63 94 08/19/25 23:23 36.7 C 68 16 101/54 L 94 08/19/25 21:44 79 08/19/25 19:46 106/72 08/19/25 19:44 36.7 C 78 16 98/97 L 92 08/19/25 19:15 O2 Del Method 08/20/25 03:02 Room Air 08/19/25 23:23 Room Air 08/19/25 21:44 08/19/25 19:46 08/19/25 19:44 Room Air 08/19/25 19:15 Room Air (1) Altered mental state Altered mental status type: disorientation Qualified Code(s): R41.0 - Disorientation, unspecified (3) Cough Cough type: acute Qualified Code(s): R05.1 - Acute cough
[2025-08-20 07:54] LABS: Hematocrit (blood only) 30.9 % (42.0-52.0); Hemoglobin 9.4 g/dL (14.0-18.0); Mean Corpuscular Hemoglobin 25.1 pg (25.0-34.0); Mean Corpuscular Volume 82.4 fL (80.0-100.0); Platelet Count 162 K/uL (130-400); RDW Standard Deviation 47.7 fL (36.4-46.3); Red Blood Count 3.75 M/uL (4.70-6.10); White Blood Count 5.03 K/ul (4.8-10.8)
[2025-08-20 08:15] LABS: Anion Gap 4.0 (3-11); Blood Urea Nitrogen 17.0 mg/dl (6-23); Calcium 8.9 mg/dl (8.6-10.3); Carbon Dioxide 30.0 mmol/L (21-32); Chloride 105.0 mmol/L (98-107); Creatinine Clr Calc Pharmacy 69.8 ml/min; Glucose 100.0 mg/dl (70-99(Fasting)); Potassium 3.7 mmol/L (3.5-5.1); Sodium 139.0 mmol/L (136-145)
[2025-08-20] MEDS: MELATONIN 3 MG TAB PO SCH (19:30)
[2025-08-21] MEDS ORDERED: PHA DELIRIUM CONSULT PRN ×2 (02:19→08:14)
--- NOTE | 2025-08-21 07:14 | Hospitalist Progress Note ---
Date of Service August 21, 2025 Assessment & Plan (1) Altered mental state: (2) Weakness: (3) Cough: Plan Elbert is an 85yo man with PMH including dementia, CAD s/p stenting & 3-vessel CABG (2012), pacemaker placement, ischemic cardiomyopathy/heart failure with reduced EF (last echo 2022 with EF 50-55%, EILEEN, COPD, afib, prostate cancer s/p prostatectomy, and multiple hospital admissions this year for pneumonia x2 and MRSA cellulitis, who presented in altered mental status. After admission, he was investigated in line of AMS, and metabolic/ infective etiology were ruled out. His overall prevention seems to be 2/2 worsening dementia presenting as delirium predisposed by his age and Valium use. Patient gradually coming back to baseline. #AMS *Progressive dementia/delirium/ IMPROVING : closer to baseline as per 2/2 to Diazepam use on top of worsening Dementia. Metabolic, infective causes ruled out. No leukocytosis. Lactate 1.3 and procal 0.04. CXR negative.CMP unremarkable CT head w/o hemorrhage, mass effect, or evidence of acute territorial ischemia Initial dehydration improved. Plan: Continue holding Diazepam. PT/OT: Following, Continue Inpt Rehab, recommend rehab placement. Usual delirium precautions. I opened his curtains this AM, he seems pleased. Easily distractible. Continue distractions Would try to avoid meds if pt becomes agitated/aggressive Continue Buspar 5mg BID for anxiety Hydroxyzine 10 mg as QPM PRN. Hydroxyzine is not a great choice, unfortunately no pharmacological aid is a better choice for him. Family expresses concern of melatonin not helping in his situation, aware of this regimen. It was already started before I started taking care and family would like to continue. Hence I am keeping this on. #COPD, EILEEN -Patient at baseline w/o Oxygen -CPAP at night #Fluctuating Blood pressure - The AM blood pressures are usually low, with intermittent soft BP daytime as well - He is on Metoprolol, Entresto and Imdur. - I believe Imdur dose can be little down titrated. Patient's adamant about staying same dose. She would not want this to change unless home health speech therapist advise. He is on Imdur 120 mg daily in AM. CAD, Afib - Pt on metoprolol, aspirin ICM/HFrEF, HTN - Pt on Entresto and Toprol ISMN, Lasix GERD - IV Protonix in lieu of omeprazole HLD - continue Vytorin or equivalent Depression - continue sertraline VTE ppx: Lovenox Diet: HH Dispo: OT/PT recs Rehab. prefers to take him to rehab for some time before taking home. Referral sent to [facility], pending pre-Auth, awaiting to hear from [facility]. Hope for 08/22 Admission and Anticipated Discharge Date Admission Date: August 12, 2025 Supervising Physician Co-Signing Physician Notes Resident Physician Supervision Note: I personally examined the patient and verified all daniels points of history and exam, discussed case, and agree with decision making with Dr. Florentino Patient with delirium, appears to be improving. Lungs were clear heart remained regular. WIll continue to hold benzos and monitor patient. net manager says [facility] can take him tomorrow. Vitals remain stable. I discussed the case with the resident and agree with the findings and plan as documented in the note. Any exceptions or clarifications are listed here: Documented By: Acosta Lopez MD Subjective Mr. Sesay continues remain stable. However little more confused to me this morning. Not oriented to time, place or person. He was constantly taking about av and was saying he missed her since few hours. Was holding the rails. Had bad dream last night. Per bedside RN, blood pressure is soft this AM, otherwise no unusual ON issue. Review of Systems Review of Systems: As per HPI Physical Exam Physical Exam: Constitutional: Sleeping comfortably, Well appearing, No acute distress HEENT: Atraumatic, Normocephalic CVS: Well perfused. Respiratory: No increased work of breathing GI: Nondistended MSK: No gross deformities noted Skin: Warm, Dry, Bruise in his left forearm. Neuro: No Focal deficit Psych: Sleeping calm Results & Data Results & Data Vital Signs (Past 12 Hours) Vital Signs Temp Pulse Pulse Resp BP BP Pulse Ox 08/21/25 03:55 36.6 C 59 L 20 122/69 94 08/20/25 23:46 36.4 C L 60 18 120/64 97 08/20/25 21:37 65 08/20/25 20:40 36.7 C 74 20 101/64 94 08/20/25 19:25 O2 Del Method 08/21/25 03:55 Room Air 08/20/25 23:46 Room Air 08/20/25 21:37 08/20/25 20:40 Room Air 08/20/25 19:25 Room Air Resident Activity Tracking Resident Involvement: Resident Care Provided Care Provided: Adult Hospital Medicine (1) Altered mental state Altered mental status type: disorientation Qualified Code(s): R41.0 - Disorientation, unspecified (3) Cough Cough type: acute Qualified Code(s): R05.1 - Acute cough
[2025-08-22] MEDS ORDERED: PHA DELIRIUM CONSULT PRN ×2 (02:16→09:53)
[2025-08-22 08:39] VITALS: PULSE 61; RESP 17; TEMP 98.1; O2SAT 95
[2025-08-22] MEDS: CYANOCOBALAMIN (B-12) 500 MCG TABLET PO SCH (08:42)
--- NOTE | 2025-08-22 10:05 | Billing Data ---
Date of Service August 19, 2025 Coding Level of Care Code 17209 SUB INP/OBS CARE MIN
--- NOTE | 2025-08-22 10:06 | Billing Data ---
Date of Service August 20, 2025 Coding Level of Care Code 09184 INT INP/OBS CARE
--- NOTE | 2025-08-22 10:07 | Billing Data ---
Date of Service August 21, 2025 Coding Level of Care Code 53369 SUB INP/OBS CARE
--- NOTE | 2025-08-22 10:19 | Discharge Summary ---
Date of Service August 22, 2025 Admission HPI Per Admitting Provider No meaningful history obtained from patient, who is sleepy and difficult to arouse. and grandson at bedside. Per , patient had been behaving normally until yesterday. Then, when working with HH PT in the afternoon, he became slightly confused and appeared to be falling asleep. By the evening, he was more somnolent, minimally responding. was unable to move him to bed, and so he slept in their recliner. They live alone together, and she is concerned about her ability to care for him in this state. She notes pt recently had chills, cough, and expiratory wheeze but no fevers, GI sx, change in urinary frequency, rash, trauma, or fall. Per EMS, pt received 1x neb on the way to hospital. In ER, 2x 500ml nss bolus, 4.5g Zosyn, and another neb. His workup has been unremarkable, without evidence of pneumonia, UTI, electrolyte derangement, or acute intracranial abnormality. His initial trop was high at 22.5, but EKG did not show ischemic changes and repeat trop was 18.6. Admission Exam Per Admitting Provider Gen: NAD, WD/WN HEENT: NCAT, normal conjunctiva, MMM CV: RRR, no m/r/g, normal S1/S2, no LE edema Resp: Exam limited by patient positioning but no notable wheeze, breathing unlabored Abd: Soft, NT/ND, +BS MSK: No gross deformities on inspection Skin: Warm, dry, well-perfused, multiple ecchymoses on b/l UE Neuro: Somnolent, PERRL, moves all extremities Principal Diagnosis Acute delirium worsened underlying dementia Discharge Exam Constitutional: Sleeping comfortably, Well appearing, No acute distress HEENT: Atraumatic, Normocephalic CVS: Well perfused. Respiratory: No increased work of breathing GI: Nondistended MSK: No gross deformities noted Skin: Warm, Dry, Bruise in his left forearm. Neuro: No Focal deficit Psych: Sleeping calm Discharge Data Allergies Allergy/AdvReac Type Severity Reaction Status Date / Time Sulfa (Sulfonamide Allergy Mild rash Verified 06/15/25 14:13 Antibiotics) ceftriaxone Allergy Hives Verified 06/15/25 14:13 lisinopril AdvReac Intermediate cough Verified 06/15/25 14:13 metoclopramide AdvReac Intermediate Depression Verified 06/15/25 14:13 oxycodone [From OxyContin] AdvReac Intermediate Hallucinati Verified 06/15/25 14:13 ons ciprofloxacin [From Cipro] AdvReac Unknown see notes Verified 06/15/25 14:13 Consultations 08/12/25 12:30 ED Decision to Admit Stat Ordered Studies 08/12/25 10:59 CT head/brain wo con Stat Hospital Course (1) Altered mental state: (2) Weakness: (3) Cough: Joelle Boswell is an 85yo man with PMH including dementia, CAD s/p stenting & 3-vessel CABG (2012), pacemaker placement, ischemic cardiomyopathy/heart failure with reduced EF (last echo 2022 with EF 50-55%, EILEEN, COPD, afib, prostate cancer s/p prostatectomy, and multiple hospital admissions this year for pneumonia x2 and MRSA cellulitis, who presented in altered mental status. After admission, he was investigated in line of AMS, and metabolic/ infective etiology were ruled out. His overall prevention seems to be 2/2 worsening dementia presenting as delirium predisposed by his age and Valium use. Patient gradually coming back to baseline. #AMS *Progressive dementia/delirium/ IMPROVING : closer to baseline as per 2/2 to Diazepam use on top of worsening Dementia. Metabolic, infective causes ruled out. No leukocytosis. Lactate 1.3 and procal 0.04. CXR negative.CMP unremarkable CT head w/o hemorrhage, mass effect, or evidence of acute territorial ischemia Initial dehydration improved. Plan: Continue holding Diazepam. PT/OT: Following, Continue Inpt Rehab, recommend rehab placement. Usual delirium precautions. I opened his curtains this AM, he seems pleased. Easily distractible. Continue distractions Would try to avoid meds if pt becomes agitated/aggressive Continue Buspar 5mg BID for anxiety Hydroxyzine 10 mg as QPM PRN. Hydroxyzine is not a great choice, unfortunately no pharmacological aid is a better choice for him. Family expresses concern of melatonin not helping in his situation, aware of this regimen. It was already started before I started taking care and family would like to continue. Hence I am keeping this on. #COPD, EILEEN -Patient at baseline w/o Oxygen -CPAP at night #Fluctuating Blood pressure - The AM blood pressures are usually low, with intermittent soft BP daytime as well - He is on Metoprolol, Entresto and Imdur. - I believe Imdur dose can be little down titrated. Patient's adamant about staying same dose. She would not want this to change unless wallpaper scraper advise. He is on Imdur 120 mg daily in AM. CAD, Afib - Pt on metoprolol, aspirin ICM/HFrEF, HTN - Pt on Entresto and Toprol ISMN, Lasix GERD - IV Protonix in lieu of omeprazole HLD - continue Vytorin or equivalent Depression - continue sertraline Total Time Total Time Spent Total Time Spent (In Minutes): <30 Discharge Plan Discharge Items Patient Disposition: Transfer [facility] Reason For Visit: AMS Discharge Diagnosis: Worsening Dementia with improving delirium Condition on Discharge: Fair Activity: Resume your previous activity Non-emergency contact: Primary Care Provider Call non-emergency contact if: your symptoms worsen Follow-up/Referrals: Colin Snider, [Primary Care Provider] - (Please make an appointment with the primary care physician within 1-2 weeks of discharge) Diet: Heart Healthy Addtl Attending Provider Instructions: You were admitted to the hospital for altered mental status. You were investigated with multiple blood works and imaging and no obvious metabolic/ infective cause was identified. The medication called Valium that you were taking could have worsened the ongoing dementia that is secondary to your age. You were treated with medication management, IV fluids when needed, close observation, Physical therapy, occupational therapy while in hospital. Physical therapy recommended you to have short term rehabilitation after hospital discharge and hence we are discharging you to [facility]. A discharge summary will be sent to your primary care physician to ensure continuity of care. Please bring this discharge summary with you to your next office appointment so that your provider can review it at that time. Medications: Your medication list has been reviewed and reconciled upon discharge to ensure accuracy and continuity of care. An updated list of all your medications is included with your hospital discharge paperwork. Please review this list closely and make note of any changes to your medications. 1. Do not Continue Valium at nighttime. 2. Buspar 10 mg BID to continue. 3. Hydroxyzine 10 mg as needed during bedtime for sleep. Follow up appointments: - Make a follow up appointment with your PCP within the next week. It is very important that you follow up with them shortly after discharge from the hospital. - Keep all of your follow up appointments as already scheduled. If you cannot make an appointment, notify your provider. CONTACT YOUR PRIMARY CARE PROVIDER if you experience any of the following: - Difficulty following your treatment plan - Difficulty taking any of your medications CALL 911 OR GO TO THE EMERGENCY DEPARTMENT if you experience any of the following: - [related to reason for admission] - Sudden, severe abdominal pain or nausea/vomiting - Severe chest pain or chest pain that radiates to your jaw or arm - Sudden, severe shortness of breath or difficulty breathing Pending Studies at Discharge: No Stand-Alone Forms: My [facility] [employer] Skilled Items Patient informed of condition?: Yes DNR: Yes Discharge Level of Care: Other Communicable Disease: No Discharge Prognosis: Improving Lines: None Urinary Catheter: No Medications and DC Order Prescriptions: New buspirone 10 mg tablet 10 mg PO BID 30 Days Qty: 60 0RF hydroxyzine HCl 10 mg tablet 10 mg PO HS PRN (Reason: insomnia) 7 Days Qty: 10 0RF Continued sertraline [Zoloft] 100 mg tablet 100 mg PO QAM Qty: 90 3RF (DME) Manual Wheelchair Device See Rx Instructions .Route Qty: 1 0RF Rx Instructions: standard wheelchair with elevated leg rest multivitamin [Daily Multi-Vitamin] Tablet 1 tab PO DAILY cholecalciferol (vitamin D3) 25 mcg (1,000 unit) capsule 4,000 unit PO DAILY (DME) CPAP mask with tubing See Rx Instructions .Route .MEDSUPPLY Qty: 1 0RF Rx Instructions: Use nightly, please have the patient fitted appropriately esomeprazole magnesium [Nexium] 40 mg capsule,delayed release(DR/EC) 40 mg PO QPM Qty: 90 3RF ezetimibe-simvastatin [Vytorin 10-40] 10-40 mg tablet 1 tab PO HS Qty: 90 3RF furosemide 40 mg tablet 40 mg PO QAM Qty: 90 3RF nitroglycerin 0.4 mg tablet, sublingual 0.4 mg SL DIRECTED PRN (Reason: Chest Pain) Qty: 25 2RF Rx Instructions: PLACE ONE TABLET UNDER THE TONGUE EVERY 5 MINUTES FOR UP TO 3 DOSES OVER 15 MINUTES IF NEEDED FOR CHEST PAIN isosorbide mononitrate 60 mg tablet extended release 24 hr 120 mg PO QAM (DME) diaper,brief,adult,disposable Misc See Rx Instructions .Route Qty: 300 5RF Rx Instructions: Use up to 10 diapers per day (DME) reusable chux See Rx Instructions .Route .MEDSUPPLY Qty: 10 0RF Rx Instructions: As directed donepezil 10 mg tablet 10 mg PO HS aspirin 81 mg Tablet,Delayed Release (Dr/Ec) 81 mg PO QAM sacubitril-valsartan [Entresto] 24-26 mg tablet 0.5 tab PO QAM memantine 10 mg Tablet 10 mg PO BID Qty: 30 0RF Advanced Probiotic 625 mg (10 billion cell) Capsule 1 cap PO DAILY Qty: 20 0RF metoprolol succinate 50 mg tablet extended release 24 hr 50 mg PO QAM Discontinued diazepam 2 mg tablet 2 mg PO HS Discharge Orders: Discharge Order (Routine); Ordered 08/22/25 Ordered By: Liya Mayes/Other Patient Handouts: Delirium and Dementia, Delirium Checklist Admission Data Admit Date/Time: 08/12/25 13:14 Attending Provider: Driss Azul Admit Provider: Tyler Thibodeaux Primary Care Provider: Colin Snider Other Providers: Driss Azul; Eddie Bob [facility]; [facility] Other Interventions: Discharge Summary Assessment (RN) Last Done: 08/22/25 10:20 Supervising Physician Co-Signing Physician Notes I personally examined the patient and verified all daniels points of history and exam, discussed case, and agree with decision making with Dr Florentino no complaints. for SNF bed today. vitals noted nad breathing unlabored no accessory muscles good effort skin no rashes no pallor or icterus AMS - delirium superimposed on progressive dementia - safe for SNF. stopped diazepam. otherwise as above
[2025-08-22 10:21] VITALS: BP 122/69
--- NOTE | 2025-08-22 12:41 | Billing Data ---
Date of Service August 22, 2025 Coding Level of Care Code 10252 IN/OBS DISCH 30 MIN/LESS
== END 2025-08-22 13:29 | DRG 884 ==
LOC: ED 09:32 → EDINP 13:14 → SUATTDRO 13:14 → 2W 13:14